=== PATIENT | female | born 1970 | race Caucasian/White ===

== ENCOUNTER 2020-07-26 12:52 | Outpatient (CLI) | payer OTHER, SELFPAY ==
--- NOTE | ~2020-07-26 | XR_ITS ---
EXAMINATION: XR fl inj knee LT for MR/CT DATE: 07/26/2020 13:48 INDICATION: Left knee pain. TECHNIQUE: A time-out was performed to verify the patient's name, date of , and procedure to b e performed. The procedure including the risks, benefits, and alternatives was discussed with the pat ient. Risks discussed included bleeding and infection. The patient understood the risks and agreed to proceed. The skin overlying the left knee joint was prepped and draped in usual sterile fashion. An esthetic was administered with 1% lidocaine subcutaneously. A 22 G needle was advanced under fluoros copic guidance into the joint. Subsequently, injectate consisting of 40 mL of 1:6 1% lidocaine, and 1:2 Omnipaque 240 was instilled. The needle was removed and the entry site was cleaned and dressed. There were no immediate complications. Fluoroscopy exposure time was 0.0 minutes. The total number o f images was 4. FINDINGS: Real-time fluoroscopy demonstrates the needle and contrast in the left knee joint. IMPRESSION: 1. Successful left knee joint injection of contrast for subsequent CT arthrography. Reviewed, dictated and finalized at location A. R OPTICS SUPERVISOR IMPRESSION: 1. Successful left knee joint injection of contrast for subsequent CT arthrogra phy.
--- NOTE | ~2020-07-26 | CT_ITS ---
EXAMINATION: CT knee LT w con DATE: 07/26/2020 13:51 INDICATION: Left knee pain. TECHNIQUE: Computed tomography (CT) of the left knee was performed without intravenous contrast after intra-articular injection of contrast (CT arthrogram). Automated exposure control and iterative steffen nstruction technique were employed. The dose-length product was 1084.42 mGy-cm. COMPARISON: Left knee MRI 12/10/2018 FINDINGS: Medial compartment: Medial meniscus is normal. There is shallow partial-thickness cartilage loss of tibial and femoral ca rtilage. Lateral compartment: Lateral meniscus is normal. There is cartilage surface irregularity of femoral condyle. Tibial cartil age is normal. Patellofemoral compartment: There is deep partial thickness cartilage loss of patellar medial facet and median ridge and distal l ateral facet. There is shallow partial-thickness cartilage loss of central and medial trochlea. Ligaments and tendons: The anterior and posterior cruciate ligaments are unremarkable. Medial collateral ligament and latera l collateral ligament complex are unremarkable. IMPRESSION: 1. Moderate chondrosis of patellofemoral compartment and mild chondrosis of medial and lateral compar tments. Reviewed, dictated and finalized at location A. CH MAKER IMPRESSION: 1. Moderate chondrosis of patellofemoral compartment and mild chondrosis of med ial and lateral compartments.
== END 2020-07-26 12:53 | disposition home or self-care (01) ==
PROVIDERS: PCP Internal Medicine; Visit Provider Orthopaedic Surgery
DX: M25.562 Pain in left knee (principal); M25.561 Pain in right knee
CPT/HCPCS: 20610; 73701; 77002; Q9966

== ENCOUNTER 2021-01-10 08:40 | Outpatient (CLI) | payer MEDICARE, MEDICAID, SELFPAY ==
--- NOTE | 2021-01-10 09:40 | NEURO_ITS ---
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 F waves are prolonged as well. Neurogenic chages are pronounced distally. Nerve Conduction Studies Anti Sensory Summary Table Stim Site NR Peak (ms) P-T Amp (?V) Site1 Site2 Delta-P (ms) Dist (cm) Parker (m/s) Left Sup Fibular Anti Sensory (Ant Lat Mall) 14 cm 6.9 16.3 14 cm Ant Lat Mall 6.9 16.0 23 Right Sup Fibular Anti Sensory (Ant Lat Mall) 14 cm NR 14 cm Ant Lat Mall 16.0 Left Sural Anti Sensory (Lat Mall) Calf NR Calf Lat Mall 16.0 Right Sural Anti Sensory (Lat Mall) Calf 4.4 31.1 Calf Lat Mall 4.4 16.0 36 Motor Summary Table Stim Site NR Onset (ms) O-P Amp (mV) Site1 Site2 Delta-0 (ms) Dist (cm) Parker (m/s) Left Peroneal Motor (Vastus Med) Ankle 2.0 1.9 Popit Ankle 21.8 41.0 19 Popit 23.8 0.3 Right Peroneal Motor (Vastus Med) Ankle 7.8 1.5 Popit Ankle 13.4 34.0 25 Popit 21.2 1.1 Left Tibial Motor (Abd Arana Brev) Ankle 10.7 1.4 Knee Ankle 13.0 41.0 32 Knee 23.7 1.2 Right Tibial Motor (Abd Arana Brev) Ankle 11.3 0.7 Knee Ankle 15.3 41.0 27 Knee 26.6 0.7 F Wave Studies NR F-Lat (ms) L-R F-Lat (ms) Left Peroneal (Mrkrs) (EDB) 61.25 8.59 Right Peroneal (Mrkrs) (EDB) 69.84 8.59 Left Tibial (Mrkrs) (Abd Hallucis) 62.19 11.49 Right Tibial (Mrkrs) (Abd Hallucis) 73.68 11.49 EMG Side Muscle Nerve Root Ins Act Fibs Amp Dur Recrt Comment Right AntTibialis Dp Br Fibular L4-5 Nml 1+ Incr >12ms Nml Right Gastroc Tibial S1-2 Nml 1+ Nml >12ms Nml Right Fibularis Long Sup Br Fibular L5-S1 Nml 1+ Nml >12ms Nml Right Flex Dig Long Tibial L5-S2 Nml 1+ Nml >12ms Nml Right Ext Dig Brev Dp Br Fibular L5, S1 Nml 2+ Incr >12ms Nml Left AntTibialis Dp Br Fibular L4-5 Nml 1+ Incr >12ms Nml Left Gastroc Tibial S1-2 Nml 1+ Nml >12ms Nml Left Fibularis Long Sup Br Fibular L5-S1 Nml 1+ Nml >12ms Nml Left Flex Dig Long Tibial L5-S2 Nml 2+ Incr >12ms Nml Left Ext Dig Brev Dp Br Fibular L5, S1 Nml Nml Nml Nml Nml MTDD
== END 2021-01-10 08:41 | disposition home or self-care (01) ==
PROVIDERS: PCP Internal Medicine; Visit Provider Psychiatry & Neurology Neurology
DX: R27.0 Ataxia, unspecified (principal); R94.131 Abnormal electromyogram [EMG]
CPT/HCPCS: 95886; 95910

== ENCOUNTER 2022-08-23 06:51 | Outpatient (CLI) | payer MEDICARE, MEDICAID, SELFPAY ==
--- NOTE | ~2022-08-23 | CT_ITS ---
EXAMINATION: CT cervical spine w con DATE: 08/23/2022 07:29 INDICATION: Other spondylosis with radiculopathy, cervical region. TECHNIQUE: Computed tomography (CT) of the cervical spine was performed with 100 mL Omnipaque 350 int ravenous contrast. Automated exposure control and iterative reconstruction technique were employed. T he dose-length product was 271.12 mGy-cm. COMPARISON: None FINDINGS: There are nodules in the thyroid measuring up to 13 mm, likely not clinically significant. There is mild kyphosis of cervical spine. There is 4 degrees dextrocurvature of cervicothoracic spine . Vertebral body heights are normal. There is a 7 mm sclerotic lesion in C5 vertebral body, most like ly a hemangioma. Intervertebral disc heights are normal. The following disc levels are specifically d iscussed: C2-C3: There is no uncovertebral joint osteoarthritis. There is mild right facet joint osteoarthritis . There is no neural foraminal stenosis. There is no central canal stenosis. C3-C4: There is no uncovertebral joint osteoarthritis. There is mild bilateral facet joint osteoarthr itis. There is no neural foraminal stenosis. There is no central canal stenosis. C4-C5: There is no uncovertebral joint osteoarthritis. There is mild right facet joint osteoarthritis . There is no neural foraminal stenosis. There is no central canal stenosis. C5-C6: There is no uncovertebral joint osteoarthritis. There is no facet joint osteoarthritis. There is no neural foraminal stenosis. There is mild central canal stenosis. C6-C7: There is no uncovertebral joint osteoarthritis. There is no facet joint osteoarthritis. There is no neural foraminal stenosis. There is mild central canal stenosis. C7-T1: There is no uncovertebral joint osteoarthritis. There is severe bilateral facet joint osteoart hritis. There is mild bilateral neural foraminal stenosis. There is no central canal stenosis. IMPRESSION: 1. Mild cervical spondylosis. Reviewed, dictated and finalized at location A.
[2022-08-23 07:17] LABS: Estimated Glomerular Filt Rate 48
== END 2022-08-23 06:52 | disposition home or self-care (01) ==
PROVIDERS: PCP Internal Medicine; Visit Provider Nurse Practitioner Adult Health
DX: M47.22 Other spondylosis with radiculopathy, cervical region (principal)
CPT/HCPCS: 72126; Q9967

== ENCOUNTER 2023-01-31 15:58 | Outpatient (CLI) | payer MEDICARE, MEDICAID, SELFPAY ==
--- NOTE | ~2023-01-31 | CT_ITS ---
EXAMINATION: CT foot RT wo con DATE: 01/31/2023 16:22 INDICATION: Stress fracture. TECHNIQUE: High resolution computed tomography (CT) of the right foot was performed without intraveno us contrast. Additional sagittal and coronal reconstructions were performed. Automated exposure contr ol and iterative reconstruction technique were employed. The dose-length product was 382.55 mGy-cm. COMPARISON: None FINDINGS: Prior amputation of the third distal phalanx. Bone alignment is normal. No fracture. There is mild po lyarticular osteoarthritis at the tibiotalar first metatarsophalangeal and several of the interphalan geal and tarsal metatarsal joints. Mild subarticular cystlike changes along the distal articular surf rowena of the middle cuneiform. Small Achilles and plantar calcaneal spurs. IMPRESSION: 1. Prior amputation of the right third distal phalanx. 2. Mild degenerative skeletal changes including calcaneal enthesophytes and mild polyarticular osteoa rthritis. No acute osseous abnormality. Reviewed, dictated and finalized at location A. IMPRESSION: 1. Prior amputation of the right third distal phalanx. 2. Mild degenerative skeletal changes including calcaneal enthesophytes and mil d polyarticular osteoarthritis. No acute osseous abnormality.
== END 2023-01-31 15:59 | disposition home or self-care (01) ==
PROVIDERS: PCP Internal Medicine; Visit Provider Podiatrist Foot & Ankle Surgery
DX: M84.374A Stress fracture, right foot, initial encounter for fracture (principal); T14.90XA Injury, unspecified, initial encounter; Z89.421 Acquired absence of other right toe(s)
CPT/HCPCS: 73700

== ENCOUNTER 2023-02-11 07:54 | Outpatient (CLI) | payer MEDICARE, MEDICAID, SELFPAY ==
[2023-02-04 08:37] VITALS: BMI 24.9
--- NOTE | 2023-02-04 08:37 | PC.NURSE ---
Pre Radiology instructions Report to the outpatient [facility] on date 02/11/23 at time 0800 for procedure Time: 1000. YOU MAY BE MONITORED AT HOSPITAL FOR UP TO 4 HOURS AFTER YOUR PROCEDURE. A visitor will be allowed to accompany the patient into the hospital. You and your visitor will be asked to self-screen and do not enter if you have any COVID symptoms. A mask is OPTIONAL within the hospital. Patients are to have no food or drink 6 hours prior to procedure time Driving will be restricted after the procedure, you must have a person to drive you home. Labs will be drawn in preop area and once reviewed, you will be taken to radiology area for procedure. When the procedure is completed, you will be taken to outpatient where you will be monitored for several hours. You may have one visitor in this area. Other than holding anti-coagulants, patient may take other medication(s) as scheduled. Prior to your appointment date patients are instructed to hold anti-coagulants after discussing with ordering provider to stop. If unable to discontinue anti-coagulants please notify radiologist. ? No aspirin or warfarin (Coumadin) for 7 days prior to the procedure. ? No clopidogrel (Plavix), ticagrelor (Brilinta), prasugrel (Effient) or dabigatran (Pradaxa) for 5 days prior to the procedure. ? No rivaroxaban (Xarelto), apixaban (Eliquis), dipyridamole (Aggrenox or Persantine) or cilostazol (Pletal) for 2 days prior to the procedure. Medications to discontinue per physician: ASPIRIN, BRILINTA Date to take last dose: ASPIRIN - 02/03, BRILINTA - 02/05 Please leave all valuables, including medications, at home the day of procedure. The hospital will not accept responsibility for valuables. Wear comfortable, loose fitting clothing.? Follow any additional instructions given to you from ordering provider. Telephone instructions given to JULEE JAQUEZ and asked if any additional questions and then verbalized understanding. Patient advised to call scheduling provider office or registration scheduling [phone] if any additional questions.
--- NOTE | ~2023-02-11 | XR_ITS ---
EXAMINATION: CT lumbar spine w con, XR myelogram spine lumbosacral DATE: 02/11/2023 10:01 INDICATION: Lumbar spinal stenosis with neurogenic claudication TECHNIQUE: Informed consent was obtained from the patient. Risks and benefits including bleeding, i nfection, spinal headache and nerve root injury were discussed with the patient. The patient agreed to proceed. Time out procedure was performed. Images from a prior MRI dated 10/23/2017 were reviewed. An entry site was chosen at the L3-L4 level. A midline interspinous process approach was used. Stand cody sterile prep was done with Betadine. Entry site was infiltrated with 3 cc 1% lidocaine. A 3.5 2 2G spinal needle was then inserted into the spinal canal with spontaneous efflux of clear CSF confirm ing intrathecal positioning. 17 mL Omnipaque 180 were then injected into the thecal sac with intermi ttent fluoroscopy confirming intrathecal administration. The needle was removed and a sterile bandage was applied. Frontal, lateral and oblique fluoroscopic images were then acquired. A total of 17 fluoroscopic image s were recorded. Fluoroscopy exposure time was 0.4 minutes. Total DAP was 3.14 Gycm^2. The patient w as then transferred to CT scan for spiral CT of the lumbar spine was performed with the intrathecal c ontrast but without intravenous contrast. Sagittal and coronal reconstructions were created. Automate d exposure control and iterative reconstruction technique were employed. The dose-length product was 271.12 mGy-cm. Following this patient was transferred to recovery area for 2 hours of observation. There are no immediate complications. COMPARISON: Lumbar spine MR dated 10/23/2017 FINDINGS: 3 mm anterolisthesis L4 on L5. 3 mm retrolisthesis L5 on S1. Minimal likely physiologic anterior wedg ing at T12 and L1. Remaining lumbar vertebral body heights are normal. No fracture. Mild disc height loss at L4-L5 and L5-S1. The conus medullaris terminates at L1-L2. Couple left adnexal cyst/follicles the largest measuring 3.1 cm. Paravertebral soft tissues are otherwise unremarkable. Moderate left a nd severe right sacroiliac osteoarthritis. The following disc levels are specifically discussed: T10-T11: The disc does not extend beyond the endplate margin. There is minimal bilateral facet joint osteoarthritis. There is no neural foraminal stenosis. There is no central canal stenosis. T11-T12: The disc does not extend beyond the endplate margin. There is mild right and minimal left fa cet joint osteoarthritis. There is no neural foraminal stenosis. There is no central canal stenosis. T12-L1: The disc does not extend beyond the endplate margin. There is mild right and minimal left fac et joint osteoarthritis. There is no neural foraminal stenosis. There is no central canal stenosis. L1-L2: Disc is minimally bulging. There is mild bilateral facet joint osteoarthritis. There is no roxana ral foraminal stenosis. There is no central canal stenosis. L2-L3: Disc is minimally bulging. There is mild bilateral facet joint osteoarthritis. There is no roxana ral foraminal stenosis. There is no central canal stenosis. L3-L4: The disc does not extend beyond the endplate margin. There is mild left and mild to moderate r ight facet joint osteoarthritis. There is no neural foraminal stenosis. There is no central canal alicia nosis. L4-L5: Disc is mildly bulging with superimposed small central disc extrusion with disc material exten ding up to 8 mm cephalad to the level of the L4 inferior endplate margin. There is severe bilateral f acet joint osteoarthritis. There is moderate right and mild left neural foraminal stenosis. There is moderate central canal stenosis. L5-S1: Disc is mildly bulging. There is mild left and mild to moderate right facet joint osteoarthrit is. There is no neural foraminal stenosis. There is no central canal stenosis. IMPRESSION: 1. No significant change in
[2023-02-11 08:38] VITALS: BP 112/77; PULSE 81; RESP 16; TEMP 36.8; O2SAT 100
[2023-02-11 08:42] LABS: Basophils Percent Auto 0.4 % (0.2-1.2); Eosinophils Absolute Auto 0.1 K/mm3 (0-0.3); Eosinophils Percent Auto 1.3 % (0-4.4); Hematocrit 38.6 % (37.0-47.0); Hemoglobin 12.3 g/dL (12.0-15.0); Immature Granulocyte Absolute 0.03 K/mm3 (0.00-0.031); Immature Granulocyte Percent A 0.4 % (0-0.5); Lymphocytes Percent Auto 24.3 % (18.3-44.2); Mean Corpuscular HGB Conc 31.9 g/dl (32-36); Mean Platelet Volume 9.3 fl (7.4-10.4); Monocytes Absolute Auto 0.7 K/mm3 (0.1-0.6); Neutrophils Absolute Auto 4.7 K/mm3 (1.3-6.7); Neutrophils Percent Auto 63.6 % (45.5-73.1); Platelet Count Result 250 k/mm3 (150-375); Red Blood Count 4.24 M/mm3 (4.2-5.4); Red Cell Distribution Width 12.7 % (11.5-14.5); White Blood Count 7.4 K/mm3 (4.5-10.0)
[2023-02-11 08:51] LABS: Prothrombin Time 13.3 Seconds (11.1-14.7)
[2023-02-11 10:00] VITALS: BP 114/78; PULSE 68; RESP 16; O2SAT 99
[2023-02-11 10:13] LABS: Glucose Point of Care 90 mg/dl (65-105)
[2023-02-11 10:25] VITALS: BP 123/87; PULSE 78; RESP 16; O2SAT 100
[2023-02-11 10:45] VITALS: BP 124/83; PULSE 69; RESP 16; O2SAT 99
[2023-02-11 11:10] VITALS: BP 126/83; PULSE 73; RESP 16; O2SAT 100
--- NOTE | 2023-02-11 11:15 | SUR.PHASEII ---
1015 - blood glucose tested and result 90. Offered pt glass of juice . Taking small sips intermittantly
[2023-02-11 11:56] VITALS: BP 128/85; PULSE 71; RESP 16; O2SAT 98
== END 2023-02-11 11:57 | disposition home or self-care (01) ==
PROVIDERS: PCP Internal Medicine; Referring Provider Nurse Practitioner Adult Health; Visit Provider Radiology Diagnostic Radiology
DX: M48.062 Spinal stenosis, lumbar region with neurogenic claudication (principal); M43.06 Spondylolysis, lumbar region; E11.9 Type 2 diabetes mellitus without complications
CPT/HCPCS: 36415; 62304; 72132; 82948; 85025; 85610; Q9965

== ENCOUNTER 2023-05-28 15:16 | Outpatient (CLI) | payer MEDICARE, MEDICAID, SELFPAY ==
--- NOTE | ~2023-05-28 | CT_ITS ---
EXAMINATION: CT brain wo con DATE: 05/28/2023 15:31 INDICATION: Migraine headaches for one year, worse in the last 4 months. Dizziness. TECHNIQUE: Computed tomography (CT) of the head was performed without intravenous contrast. The mA wa s adjusted according to patient size. Iterative reconstruction technique was employed. Exam dose: 60 5.33 mGy-cm total exam DLP. COMPARISON: June 26, 2015 MRI brain brain July 01, 2015 MRI brain/brainstem June 30, 2015 CT brain FINDINGS: There is bilateral carotid siphon internal carotid artery calcification and bilateral verte bral artery calcification. No intracranial mass lesion or hemorrhage or cerebrovascular accident, midline shift or mass effect i s evident. Normal ventricular size. Normal vega-white matter differentiation. No subdural or epidural hematoma. No fracture or bone destruction of the skull. Paranasal sinuses and mastoid air cells are normally d eveloped and aerated. IMPRESSION: Cerebral atherosclerosis Reviewed, dictated and finalized at Location A. Reviewed, dictated and finalized at location B. CUTTER IMPRESSION: Cerebral atherosclerosis
== END 2023-05-28 15:17 | disposition home or self-care (01) ==
PROVIDERS: PCP Internal Medicine; Visit Provider Student in an Organized Health Care Education/Training Program
DX: I67.2 Cerebral atherosclerosis (principal); G43.909 Migraine, unspecified, not intractable, without status migrainosus
CPT/HCPCS: 70450

== ENCOUNTER 2024-01-26 05:05 | Outpatient (CLI) | payer MEDICARE, MEDICAID, SELFPAY ==
[2024-01-21 14:05] VITALS: BMI 21.3
--- NOTE | 2024-01-21 14:06 | PC.NURSE ---
Pre Radiology instructions Report to the outpatient [facility] on date _[id number]_ at time _0700_ for procedure Time: _0900_ YOU MAY BE MONITORED AT HOSPITAL FOR UP TO 4 HOURS AFTER YOUR PROCEDURE. A visitor will be allowed to accompany the patient into the hospital. You and your visitor will be asked to self-screen and do not enter if you have any COVID symptoms. A mask is OPTIONAL within the hospital. Patients are to have no food or drink 6 hours prior to procedure time Driving will be restricted after the procedure, you must have a person to drive you home. Labs will be drawn in preop area and once reviewed, you will be taken to radiology area for procedure. When the procedure is completed, you will be taken to outpatient where you will be monitored for several hours. You may have one visitor in this area. Other than holding anti-coagulants, patient may take other medication(s) as scheduled. Prior to your appointment date patients are instructed to hold anti-coagulants after discussing with ordering provider to stop. If unable to discontinue anti-coagulants please notify radiologist. ? No aspirin or warfarin (Coumadin) for 7 days prior to the procedure. ? No clopidogrel (Plavix), ticagrelor (Brilinta), prasugrel (Effient) or dabigatran (Pradaxa) for 5 days prior to the procedure. ? No rivaroxaban (Xarelto), apixaban (Eliquis), dipyridamole (Aggrenox or Persantine) or cilostazol (Pletal) for 2 days prior to the procedure. Medications to discontinue per physician: _Aspirin and Brilinta Date to take last dose: __Patient stopped these on 3-3-6507 Please leave all valuables, including medications, at home the day of procedure. The hospital will not accept responsibility for valuables. Wear comfortable, loose fitting clothing.? Follow any additional instructions given to you from ordering provider. Telephone instructions given to ___Shelly____and asked if any additional questions and then verbalized understanding. Patient advised to call scheduling provider office or registration scheduling [phone] if any additional questions.
[2024-01-26] VITALS (7 sets, daily range): BP systolic 106–127; BP diastolic 74–81; PULSE 75–85; RESP 14–16; TEMP 36.7; O2SAT 95–98
--- NOTE | ~2024-01-26 | CT_ITS ---
EXAMINATION: 1. XR myelogram spine lumbosacral 2. CT lumbar spine w con DATE: 01/26/2024 09:18 INDICATION: Spondylolisthesis, lumbar region. TECHNIQUE: The procedure including the risks, benefits, and alternatives was discussed with the patie nt. Risks discussed included spinal headache, bleeding, and infection. The patient understood the ris ks and agreed to proceed. A timeout was performed to verify the patient's name, date of , and procedure to be performed. The skin overlying the L2-L3 level was prepped and draped in usual steri le fashion. Subcutaneous 1% lidocaine was used for local anesthesia. A 22 gauge spinal needle was a dvanced under fluoroscopic guidance. 17 mL Omnipaque 180 was injected. The needle was removed and the entry site was cleaned and dressed. There were no immediate complications. Fluoroscopy exposure fanta e was 0.2 minutes. The total number of images was 7. Computed tomography (CT) of the lumbar spine was performed without intravenous contrast. Automated exposure control and iterative reconstruction tech Aveillantque were employed. The dose-length product was 481.57 mGy-cm. COMPARISON: CT lumbar spine 02/11/2023 FINDINGS: LUMBAR MYELOGRAM: There is epidural and intradural injection of contrast. There is indentation of the thecal sac at multiple levels that will be further described on the CT. POST-MYELOGRAM LUMBAR SPINE CT: There is 3 mm anterolisthesis of L4 on L5. Vertebral body heights are normal. There is moderately decreased disc height at L4-L5 and mildly decreased disc height at L5-S1 . The distal spinal cord morphology is normal. The conus medullaris is at L1-L2. The following disc l evels are specifically discussed: L1-L2: The disc is bulging. There is moderate right and mild left facet joint osteoarthritis. There i s no neural foraminal stenosis. There is mild central canal stenosis. L2-L3: The disc is bulging. There is mild bilateral facet joint osteoarthritis. There is mild left ne ural foraminal stenosis. There is mild central canal stenosis. L3-L4: The disc does not extend beyond the endplate margin. There is mild bilateral facet joint osteo arthritis. There is no neural foraminal stenosis. There is no central canal stenosis. L4-L5: The disc is bulging with superimposed central extrusion. There is severe bilateral facet joint osteoarthritis. There is moderate right and mild left neural foraminal stenosis. There is mild centr al canal stenosis. There is moderate stenosis of right lateral recess. L5-S1: The disc is bulging. There is moderate right and mild left facet joint osteoarthritis. There i s no neural foraminal stenosis. There is mild central canal stenosis. IMPRESSION: 1. Moderate spondylosis at L4-L5 and mild spondylosis at other levels, stable from 02/11/2023. Reviewed, dictated and finalized at location A. IMPRESSION: 1. Moderate spondylosis at L4-L5 and mild spondylosis at other levels, stable f rom 02/11/2023.
[2024-01-26 07:30] LABS: Mean Platelet Volume 9.1 fl (7.4-10.4); Platelet Count Result 251 k/mm3 (150-375)
[2024-01-26 07:41] LABS: INR 0.9; Prothrombin Time 12.3 Seconds (11.1-14.7)
== END 2024-01-26 11:28 | disposition home or self-care (01) ==
PROVIDERS: PCP Physician Assistant Medical; Referring Provider Neurological Surgery; Visit Provider Radiology Diagnostic Radiology
DX: Z01.818 Encounter for other preprocedural examination (principal); M43.16 Spondylolisthesis, lumbar region
CPT/HCPCS: 36415; 62304; 72132; 85049; 85610; Q9965

== ENCOUNTER 2024-01-28 21:13 | Emergency (ER) | payer MEDICARE, MEDICAID, SELFPAY ==
[2024-01-28 21:48] VITALS: BP 171/104; PULSE 93; RESP 20; TEMP 35.7; O2SAT 100
[2024-01-29 02:10] VITALS: BP 157/96; PULSE 85; RESP 17; O2SAT 100
[2024-01-29] MEDS: MORPHINE SULFATE (*CRX) 4 MG/ML INJ IV PUSH (02:34)
[2024-01-29] MEDS: diphenhydrAMINE HCl INJ 50 MG/ML VIAL IV PUSH (02:34)
[2024-01-29] MEDS: MAGNESIUM SULF 1 GM/D5W 100 ML 1 GM/100 ML BAG IVPB (02:34)
[2024-01-29] MEDS: PROCHLORPERAZINE EDISYLATE 10 MG/2 ML VIAL IV PUSH (02:35)
[2024-01-29] MEDS: SODIUM CHLORIDE 0.9% IV 1,000 ML 999 ML IV CONT (02:35)
[2024-01-29 02:41] LABS: Basophils Percent Auto 0.3 % (0.2-1.2); Hematocrit 39.7 % (37.0-47.0); Hemoglobin 13.2 g/dL (12.0-15.0); Immature Granulocyte Absolute 0.02 K/mm3 (0.00-0.031); Immature Granulocyte Percent A 0.3 % (0-0.5); Lymphocytes Absolute Auto 1.39 K/mm3 (0.9-3.2); Mean Corpuscular HGB Conc 33.2 g/dl (32-36); Mean Corpuscular Hemoglobin 27.9 pg (26-34); Mean Corpuscular Volume 83.9 fl (80-100); Mean Platelet Volume 8.9 fl (7.4-10.4); Monocytes Absolute Auto 0.3 K/mm3 (0.1-0.6); Monocytes Percent Auto 3.2 % (2.6-8.5); Neutrophils Absolute Auto 6.1 K/mm3 (1.3-6.7); Neutrophils Percent Auto 78.2 % (45.5-73.1); Platelet Count Result 294 k/mm3 (150-375); Red Blood Count 4.73 M/mm3 (4.2-5.4); Red Cell Distribution Width 12.7 % (11.5-14.5); White Blood Count 7.7 K/mm3 (4.5-10.0)
[2024-01-29 02:53] LABS: Alanine Aminotransferase 16 U/L (6-35); Albumin Level 3.9 g/dL (3.5-5.1); Alkaline Phosphatase 71 U/L (38-126); Anion Gap 10 mmol/L (4-12); Aspartate Amino Transferase 21 U/L (14-36); Bilirubin,Total 0.7 mg/dL (0.2-1.3); Blood Urea Nitrogen 20 mg/dL (7-17); Calcium 9.2 mg/dL (8.4-10.2); Carbon Dioxide 26 mmol/L (22-30); Chloride 99 mmol/L (98-107); Estimated CRCL calculation 68 ml/min; Estimated Glomerular Filt Rate > 60; Glucose 104 mg/dL (65-110); Potassium 4.1 mmol/L (3.4-5.0); Sodium 135 mmol/L (137-145)
--- NOTE | 2024-01-29 03:51 | ED.GENADULT ---
HPI - General Adult General Chief complaint: Headache Stated complaint: headache Time Seen by Provider: 01/29/24 01:48 History of Present Illness HPI narrative: Patient is a 53-year-old female who presents emergency department with chief complaint of headache. The patient reports that she had a myelogram performed on Friday and since the procedure has been having headache the patient denies fever reports that she has had multiple bouts of nausea vomiting reports no drainage from the injection site. Patient reports no new focal neurological deficits denies footdrop denies saddle anesthesia Related Data Home Medications Medication Instructions Recorded Confirmed aspirin 81 mg tablet,delayed 81 mg PO DAILY 10/27/20 01/21/24 release levothyroxine 100 mcg capsule 100 mcg PO DAILY 10/27/20 01/21/24 (Tirosint) metformin 1,000 mg tablet 1,000 mg PO BID 10/27/20 01/21/24 nitroglycerin 0.4 mg sublingual 0.4 mg sublingual Q5M PRN Chest 10/27/20 01/21/24 tablet Pain acetaminophen 300 mg-codeine 30 mg 1 tablet PO QHS PRN Pain 04/09/22 01/21/24 tablet atorvastatin 80 mg tablet 80 mg PO DAILY 04/09/22 01/21/24 bumetanide 1 mg tablet 1 mg PO DAILY 04/09/22 01/21/24 carvedilol 6.25 mg tablet 6.25 mg PO BID 04/09/22 01/21/24 empagliflozin 25 mg tablet 25 mg PO DAILY 04/09/22 01/21/24 (Jardiance) sacubitril 24 mg-valsartan 26 mg 1 tablet PO BID 04/09/22 01/21/24 tablet (Entresto) duloxetine 30 mg capsule,delayed 60 mg PO DAILY 02/11/23 01/21/24 release linaclotide 145 mcg capsule 145 mcg PO DAILY 05/23/23 01/21/24 (Linzess) semaglutide 0.25 mg or 0.5 mg (2 0.25 mg subcut WEEKLY 05/23/23 01/21/24 mg/3 mL) subcutaneous pen injector (Ozempic) gabapentin 600 mg tablet 600 mg PO BID 11/19/23 01/21/24 sertraline 25 mg tablet 25 mg PO DAILY 07/03/24 09/04/24 ticagrelor 60 mg tablet (Brilinta) 60 mg PO BID 01/21/24 01/21/24 Allergies Allergy/AdvReac Type Severity Reaction Status Date / Time No Known Allergies Allergy Verified 01/28/24 21:48 Review of Systems Review of Systems: A 10 system review of systems was completed on the patient and is negative except for what is stated in the HPI. Nursing and ancillary documentation was reviewed. PMFSH Past Medical History Medical History Heart attack Family History Family History Father Hypertension Grandparent Diabetes mellitus Hypertension Depression Grandparent Depression Diabetes mellitus Hypertension Social History Social History Social History: never smoker Smoking packs per day: 0 Smoking cigarettes per day: 0.0 Years smoked: 0 Smoking pack-years: 0.00 Smoking status: Never smoker Second hand tobacco smoke exposure: No Alcohol intake: current Drinks per week: 1 Alcohol use details: 1 drink a year Substance use: never Substance use type: does not use Do You Feel Safe in your Home?: Yes Lack of Transportation: No Lack of Food: Sometimes True Current Housing: I Have Housing Concerned About Future Housing: No Difficulty Paying Gas/Electric Bills: No Difficulty Paying for Meds: No Currently Unemployed: No Education: High School Diploma/GED Difficulty w/ Childcare or Family Care: No Living arrangements: alone Exam Narrative: GENERAL: Well-appearing, well-nourished, and in no acute distress. HEAD: Normocephalic, atraumatic. EYES: PERRLA and EOMI. ENT: Nares clear, no rhinorrhea or epistaxis. Mucous membranes moist. NECK: Supple. CHEST: Clear to auscultation. No respiratory distress. HEART: Regular rate and rhythm. No murmur heard. Normal peripheral pulses. ABDOMEN: Soft, nontender, nondistended, normal active bowel sounds. EXTREMITIES: Normal range of motion. No edema. SKIN: Warm, dry, no rash. NEURO
[2024-01-29 04:24] VITALS: BP 122/74; PULSE 83; RESP 13; O2SAT 100
== END 2024-01-29 04:32 | disposition home or self-care (01) ==
PROVIDERS: Emergency Provider Emergency Medicine; PCP Physician Assistant Medical
DX: T88.59XA Other complications of anesthesia, initial encounter (principal); G44.40 Drug-induced headache, not elsewhere classified, not intractable
CPT/HCPCS: 36415; 80053; 85025; 96365; 96375; 99284; J0780; J1200; J2270; J3475; J7030

== ENCOUNTER 2024-04-11 19:17 | Emergency (ER) | payer MEDICARE, MEDICAID, SELFPAY ==
--- NOTE | ~2024-04-11 | CT_ITS ---
EXAMINATION: CT chest abdomen pelvis w con DATE: 04/12/2024 02:16 INDICATION: Generalized abdominal pain. TECHNIQUE: Computed tomography (CT) of the chest, abdomen, and pelvis was performed with 100 mL Omnip aque 350 intravenous contrast. Automated exposure control and iterative reconstruction technique were employed. The dose-length product was 348.48 mGy-cm. COMPARISON: Chest CT 12/13/2017 FINDINGS: CHEST CT: The lungs demonstrate mild dependent atelectasis bilaterally. No pleural effusion. The heart size is normal. No pericardial effusion. There are stents in left anterior descending coronary artery. There is a left chest wall pacer with leads in the right atrium and right ventricle. There are nodules in t he thyroid measuring up to 10 mm, likely not clinically significant. There is moderate thoracic spond ylosis. ABDOMEN/PELVIS CT: The liver, spleen, gallbladder, pancreas, adrenal glands, and kidneys are normal. There are no dilate d loops of bowel. The appendix is normal. There is physiologic fluid in the pelvis. Body wall edema i s noted. There are no pathologically enlarged lymph nodes. There is mild lumbar spondylosis. IMPRESSION: 1. No etiology for the patient's symptoms. Reviewed, dictated and finalized at location A. 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
[2024-04-11 19:22] VITALS: BP 149/101; PULSE 83; RESP 16; TEMP 36.4; O2SAT 100
[2024-04-11 19:32] LABS: Basophils Percent Auto 0.4 % (0.2-1.2); Eosinophils Absolute Auto 0.2 K/mm3 (0-0.3); Eosinophils Percent Auto 2.1 % (0-4.4); Immature Granulocyte Absolute 0.02 K/mm3 (0.00-0.031); Immature Granulocyte Percent A 0.3 % (0-0.5); Lymphocytes Absolute Auto 2.13 K/mm3 (0.9-3.2); Mean Corpuscular HGB Conc 31.7 g/dl (32-36); Mean Corpuscular Hemoglobin 27.1 pg (26-34); Mean Corpuscular Volume 85.4 fl (80-100); Mean Platelet Volume 8.8 fl (7.4-10.4); Monocytes Absolute Auto 0.5 K/mm3 (0.1-0.6); Monocytes Percent Auto 6.8 % (2.6-8.5); Neutrophils Absolute Auto 4.8 K/mm3 (1.3-6.7); Neutrophils Percent Auto 62.4 % (45.5-73.1); Platelet Count Result 287 k/mm3 (150-375); Red Cell Distribution Width 12.8 % (11.5-14.5); White Blood Count 7.6 K/mm3 (4.5-10.0)
[2024-04-11 19:51] LABS: Alanine Aminotransferase 13 U/L (6-35); Albumin Level 4.4 g/dL (3.5-5.1); Alkaline Phosphatase 84 U/L (38-126); Anion Gap 6 mmol/L (4-12); Aspartate Amino Transferase 22 U/L (14-36); Bilirubin,Total 0.8 mg/dL (0.2-1.3); Blood Urea Nitrogen 18 mg/dL (7-17); Calcium 9.5 mg/dL (8.4-10.2); Carbon Dioxide 27 mmol/L (22-30); Chloride 104 mmol/L (98-107); Estimated CRCL calculation 65 ml/min; Estimated Glomerular Filt Rate > 60; Glucose 109 mg/dL (65-110); Lipase 168 U/L (23-300); Potassium 4.5 mmol/L (3.4-5.0); Sodium 137 mmol/L (137-145)
[2024-04-11 20:41] LABS: BEDSIDEPREGUCG Negative (Negative)
[2024-04-11 20:49] LABS: Add Urine Microscopic? NO; Appearance Urine Clear (Clear); Bilirubin Urine Negative (Negative); Blood Urine Negative (Negative); Color Urine Yellow (Yellow); Glucose Urine UA 3+ mg/dL (Negative); Ketones Urine Trace mg/dL (Negative); Leukocyte Esterase Ur Negative LEU/UL (Negative); Nitrate Urine Negative (Negative); Protein Urine Negative (Negative); Specific Grav Ur 1.036 (1.001-1.035); Urobilinogen Urine 0.2 mg/dL (<2.0)
[2024-04-11 22:14] VITALS: BP 138/86; PULSE 81; RESP 16; O2SAT 98
--- NOTE | 2024-04-12 01:06 | ECG_ITS ---
Test Date: 2024-04-12 01:18:51 Measurements Intervals [place] Rate: 79 P: 40 LA: 155 QRS: -3 QRSD: 90 T: 30 QT: 347 QTc: 400 Interpretive Statements SINUS RHYTHM LOW QRS VOLTAGE IN PRECORDIAL LEADS ANTEROSEPTAL INFARCT, AGE INDETERMINATE BASELINE ARTIFACT- I, II, III, AVR, AVL ABNORMAL ECG No previous ECG available for comparison Electronically Signed On 04-12-2024 06:07:55 LEATHER STRIPPING MACHINE OPERATOR by Melecio Sawant D.O.
[2024-04-12] MEDS: FAMOTIDINE 20 MG/2 ML VIAL IV PUSH (01:19)
[2024-04-12] MEDS: ONDANSETRON INJ 4 MG/2 ML VIAL IV PUSH (01:19)
[2024-04-12] MEDS: SODIUM CHLORIDE 0.9% IV 1,000 ML 999 ML IV CONT (01:19)
[2024-04-12] MEDS: MORPHINE SULFATE (*CRX) 2 MG/ML INJ IV PUSH (01:19)
[2024-04-12 01:20] VITALS: BP 132/89; PULSE 78; RESP 13; O2SAT 100
[2024-04-12] MEDS: KETOROLAC 15 MG/ML VIAL (*BKC) IV PUSH (01:26)
[2024-04-12 01:42] LABS: Prothrombin Time 13.2 Seconds (11.1-14.7)
[2024-04-12 01:43] LABS: Partial Thromboplastin Time 26.4 Seconds (22.3-36.8)
[2024-04-12 01:53] LABS: Troponin I < 0.012 ng/mL (0.000-0.034)
[2024-04-12 01:58] VITALS: BP 136/86; PULSE 79; RESP 16; O2SAT 98
--- NOTE | 2024-04-12 01:58 | ED_ITS ---
HPI - Abdominal Pain General Chief Complaint: Abdominal Pain Stated Complaint: lower abdominal pain Time Seen by Provider: 04/11/24 23:50 History of Present Illness HPI narrative: Patient is a 63-year-old female who presents to the ER with generalized abdominal pain. She reports this started abruptly around 3:00 p.m. today. Patient reports she has never experienced this before. She endorses nausea and vomiting. Patient endorses a history of hypertension, diabetes, CHF with an internal defibrillator in 3 stents. She denies any recent sick contacts and denies any urinary symptoms. Patient's last bowel movement was this morning and it was normal for her. Related Data Home Medications Medication Instructions Recorded Confirmed aspirin 81 mg tablet,delayed 81 mg PO DAILY 10/27/20 01/21/24 release levothyroxine 100 mcg capsule 100 mcg PO DAILY 10/27/20 01/21/24 (Tirosint) metformin 1,000 mg tablet 1,000 mg PO BID 10/27/20 01/21/24 nitroglycerin 0.4 mg sublingual 0.4 mg sublingual Q5M PRN Chest 10/27/20 01/21/24 tablet Pain acetaminophen 300 mg-codeine 30 mg 1 tablet PO QHS PRN Pain 04/09/22 01/21/24 tablet atorvastatin 80 mg tablet 80 mg PO DAILY 04/09/22 01/21/24 bumetanide 1 mg tablet 1 mg PO DAILY 04/09/22 01/21/24 carvedilol 6.25 mg tablet 6.25 mg PO BID 04/09/22 01/21/24 empagliflozin 25 mg tablet 25 mg PO DAILY 04/09/22 01/21/24 (Jardiance) sacubitril 24 mg-valsartan 26 mg 1 tablet PO BID 04/09/22 01/21/24 tablet (Entresto) duloxetine 30 mg capsule,delayed 60 mg PO DAILY 02/11/23 01/21/24 release linaclotide 145 mcg capsule 145 mcg PO DAILY 05/23/23 01/21/24 (Linzess) semaglutide 0.25 mg or 0.5 mg (2 0.25 mg subcut WEEKLY 05/23/23 01/21/24 mg/3 mL) subcutaneous pen injector (Ozempic) gabapentin 600 mg tablet 600 mg PO BID 11/19/23 01/21/24 sertraline 25 mg tablet 25 mg PO DAILY 11/19/23 01/21/24 ticagrelor 60 mg tablet (Brilinta) 60 mg PO BID 01/21/24 01/21/24 ondansetron 8 mg disintegrating 8 mg PO Q12H 03/09/24 tablet rimegepant 75 mg disintegrating 75 mg PO ONCE PRN 03/09/24 tablet (Nurtec ODT) Allergies Allergy/AdvReac Type Severity Reaction Status Date / Time No Known Allergies Allergy Verified 03/09/24 09:07 Review of Systems Review of Systems: All systems reviewed & are unremarkable except as noted in HPI and below PMFSH Past Medical History Medical History Heart attack Family History Family History Father Hypertension Grandparent Diabetes mellitus Hypertension Depression Grandparent Depression Diabetes mellitus Hypertension Social History Social History Social History: never smoker Smoking packs per day: 0 Smoking cigarettes per day: 0.0 Years smoked: 0 Smoking pack-years: 0.00 Smoking status: Never smoker Second hand tobacco smoke exposure: No Alcohol intake: current Drinks per week: 1 Alcohol use details: 1 drink a year Substance use: never Substance use type: does not use Do You Feel Safe in your Home?: Yes Lack of Transportation: No Lack of Food: Never True Current Housing: I Have Housing Concerned About Future Housing: No Difficulty Paying Gas/Electric Bills: No Difficulty Paying for Meds: No Currently Unemployed: No Education: High School Diploma/GED Difficulty w/ Childcare or Family Care: No Living arrangements: alone Exam Narrative: GENERAL: Well appearing, well-nourished, non-toxic, in no acute distress. HEAD: Normocephalic, atraumatic. NECK: Supple. No adenopathy, no masses. RESPIRATORY: Airway patent, respirations nonlabored. Clear to auscultation bilaterally, no rales, rhonchi, wheezing. CARDIOVASCULAR: Regular rate and rhythm without murmurs, rubs, or gallops. Peripheral pulses 2+ and equal bilaterally. ABDOMINAL: Soft, tender in all four quadrants (L worse than R), increased abdominal pain with palpation, nondistended, no hepatosplenomegaly. Normoactive BS. MUSCULOSKELETAL: Moves all extremities. Strength/ROM intact without gross deformities. SKIN: Warm, dry, normal color. No rashes. NEURO: A&O X3. Speech clear. Cranial nerves II-XII grossly intact. No ataxic movements. PSYCHIATRIC: Appropriate mood and affect. Normal interaction. Course Vital Signs Vital signs: Vital Signs Temperature 36.4 C 04/11/24 19:22 Pulse Rate 83 04/11/24 19:22 Respiratory Rate 16 04/11/24 19:22 Blood Pressure 149/101 H 04/11/24 19:22 Pulse Oximetry 100 04/11/24 19:22 Temperature 36.4 C 04/11/24 19:22 Pulse Rate 79 04/12/24 01:58 Respiratory Rate 16 04/12/24 01:58 Blood Pressure 136/86 04/12/24 01:58 Pulse Oximetry 98 04/12/24 01:58 MDM - Abdominal Pain MDM Narrative Medical decision making narrative: Patient is a 63-year-old female who presents to the ER with generalized abdominal pain. She reports this started abruptly around 3:00 p.m. today. Patient reports she has never experienced this before. She endorses nausea and vomiting. Patient endorses a history of hypertension, diabetes, CHF with an internal defibrillator in 3 stents. She denies any recent sick contacts and denies any urinary symptoms. Patient's last bowel movement was this morning and it was normal for her. She denies any alcohol or drug use. Labs Ordered: CBC, CMP, lipase, INR, PTT, troponin, UDS, urinalysis Imaging Ordered: EKG, CT chest/abdomen/pelvis Diagnosis: viral gastritis Patient Education/Shared MDM: All of patient's blood work was unremarkable. Her urinalysis indicated mild dehydration her which patient was given 1 L normal saline IV bolus. Patient's chest/abdomen/pelvis CT scan was unremarkable for any acute findings. Results with patient. Patient's symptoms are most likely cause a viral gastritis. She will be given Zofran and Bentyl prescriptions for discharge. Patient given extensive education about the need to return if she sh ows signs of dehydration. She verbalizes understanding is in agreement with plan to discharge home. Will give patient a [place] prior to discharge as she is still experiencing abdominal pain. Differential Diagnosis Differential diagnosis: Likely abdominal pain, constipation, diverticulitis, gastroenteritis, pancreatitis, small bowel obstruction and other (cannabinoid hyperemesis, viral gastritis) Lab Data Attestation: I reviewed the patient's lab results. 04/11/24 19:27 04/11/24 19:27 Labs: Lab Results 04/11/24 04/11/24 04/11/24 Range/Units 19:27 20:37 20:39 WBC 7.6 (4.5-10.0) K/mm3 RBC 4.80 (4.2-5.4) M/mm3 Hgb 13.0 (12.0-15.0) g/dL Hct 41.0 (37.0-47.0) % MCV 85.4 (80-100) fl MCH 27.1 (26-34) pg MCHC 31.7 L (32-36) g/dl RDW 12.8 (11.5-14.5) % Plt Count 287 (150-375) k/mm3 MPV 8.8 (7.4-10.4) fl Immature Gran % (Auto) 0.3 (0-0.5) % Neut % (Auto) 62.4 (45.5-73.1) % Lymph % (Auto) 28.0 (18.3-44.2) % [place] % (Auto) 6.8 (2.6-8.5) % Eos % (Auto) 2.1 (0-4.4) % Baso % (Auto) 0.4 (0.2-1.2) % Lymph # (Auto) 2.13 (0.9-3.2) K/mm3 [place] # (Auto) 0.5 (0.1-0.6) K/mm3 Eos # (Auto) 0.2 (0-0.3) K/mm3 Baso # (Auto) 0.0 (0.0-0.1) K/mm3 Abs Immat Gran (auto) 0.02 (0.00-0.031) K/mm3 Absolute Neuts (auto) 4.8 (1.3-6.7) K/mm3 Absolute Nucleated RBC 0.000 (0.0-0.012) K/mm3 Nucleated RBC % 0.0 (0.0-0.2) % PT (11.1-14.7) Seconds INR APTT (22.3-36.8) Seconds Sodium 137 (137-145) mmol/L Potassium 4.5 (3.4-5.0) mmol/L Chloride 104 (98-107) mmol/L Carbon Dioxide 27 (22-30) mmol/L Anion Gap 6 (4-12) mmol/L BUN 18 H (7-17) mg/dL Creatinine 0.80 (0.7-1.0) mg/dL Estim Creat Clear Calc 65 ml/min Estimated GFR > 60 (59 - ) Glucose 109 (65-110) mg/dL Calcium 9.5 (8.4-10.2) mg/dL Total Bilirubin 0.8 (0.2-1.3) mg/dL AST 22 (14-36) U/L ALT 13 (6-35) U/L Alkaline Phosphatase 84 (38-126) U/L Troponin I (0.000-0.034) ng/mL Total Protein 8.0 (6.3-8.2) g/dL Albumin 4.4 (3.5-5.1) g/dL Lipase 168 (23-300) U/L Urine Color Yellow (Yellow) Urine Appearance Clear (Clear) Urine pH 5.0 (5.0-9.0) Ur Specific [place] 1.036 H (1.001-1.035) Urine Protein Negative (Negative) mg/dL Urine Glucose (UA) 3+ H (Negative) mg/dL Urine Ketones Trace H (Negative) mg/dL Ur Blood (Man) Negative (Negative) Urine Nitrate Negative (Negative) Urine Bilirubin Negative (Negative) Urine Urobilinogen 0.2 (<2.0) mg/dL Leukocyte Esterase Rfl Negative (Negative) BOBBY/UL POC Urine HCG, Qual Negative (Negative) 04/12/24 Range/Units 01:17 WBC (4.5-10.0) K/mm3 RBC (4.2-5.4) M/mm3 Hgb (12.0-15.0) g/dL Hct (37.0-47.0) % MCV (80-100) fl MCH (26-34) pg MCHC (32-36) g/dl RDW (11.5-14.5) % Plt Count (150-375) k/mm3 MPV (7.4-10.4) fl Immature Gran % (Auto) (0-0.5) % Neut % (Auto) (45.5-73.1) % Lymph % (Auto) (18.3-44.2) % [place] % (Auto) (2.6-8.5) % Eos % (Auto) (0-4.4) % Baso % (Auto) (0.2-1.2) % Lymph # (Auto) (0.9-3.2) K/mm3 [place] # (Auto) (0.1-0.6) K/mm3 Eos # (Auto) (0-0.3) K/mm3 Baso # (Auto) (0.0-0.1) K/mm3 Abs Immat Gran (auto) (0.00-0.031) K/mm3 Absolute Neuts (auto) (1.3-6.7) K/mm3 Absolute Nucleated RBC (0.0-0.012) K/mm3 Nucleated RBC % (0.0-0.2) % PT 13.2 (11.1-14.7) Seconds INR 1.0 APTT 26.4 (22.3-36.8) Seconds Sodium (137-145) mmol/L Potassium (3.4-5.0) mmol/L Chloride (98-107) mmol/L Carbon Dioxide (22-30) mmol/L Anion Gap (4-12) mmol/L BUN (7-17) mg/dL Creatinine (0.7-1.0) mg/dL Estim Creat Clear Calc ml/min Estimated GFR (59 - ) Glucose (65-110) mg/dL Calcium (8.4-10.2) mg/dL Total Bilirubin (0.2-1.3) mg/dL AST (14-36) U/L ALT (6-35) U/L Alkaline Phosphatase (38-126) U/L Troponin I < 0.012 (0.000-0.034) ng/mL Total Protein (6.3-8.2) g/dL Albumin (3.5-5.1) g/dL Lipase (23-300) U/L Urine Color (Yellow) Urine Appearance (Clear) Urine pH (5.0-9.0) Ur Specific [place] (1.001-1.035) Urine Protein (Negative) mg/dL Urine Glucose (UA) (Negative) mg/dL Urine Ketones (Negative) mg/dL Ur Blood (Man) (Negative) Urine Nitrate (Negative) Urine Bilirubin (Negative) Urine Urobilinogen (<2.0) mg/dL Leukocyte Esterase Rfl (Negative) BOBBY/UL POC Urine HCG, Qual (Negative) Imaging Data Attestation: I personally reviewed and interpreted this imaging study as follows: My impression: Patient's chest/abdomen/pelvis CT scan was unremarkable for any acute findings Discharge Plan Discharge Clinical Impression: Viral gastritis Patient Disposition: Home, Self-Care Condition: Stable Instructions: Antibiotic Form, Abdominal Pain (ED) Additional Instructions: Please return to the ER with any worsening symptoms including lack of urination for 8 hours or more. Follow-up with your primary care provider in the next 2-3 days. Take all medications as prescribed. Prescriptions: New dicyclomine 10 mg capsule 10 mg PO QID Qty: 14 0RF ondansetron 4 mg tablet,disintegrating 4 mg PO Q8H PRN (Reason: nausea and vomiting) Qty: 14 0RF No Action Linzess 145 mcg capsule 145 mcg PO DAILY Ozempic 0.25 mg or 0.5 mg (2 mg/3 mL) pen injector 0.25 mg subcut WEEKLY Rx Instructions: for 4 weeks, says is taking 0.5mg on Wednesdays. sertraline 25 mg tablet 25 mg PO DAILY gabapentin 600 mg tablet 600 mg PO BID Qulipta 60 mg tablet 60 mg PO DAILY Qty: 30 6RF Ubrelvy 100 mg tablet 100 mg PO ONCE PRN (Reason: migraine headache) Qty: 14 3RF Rx Instructions: as a single dose; may repeat once in >=2 hours after first dose if needed levothyroxine [Tirosint] 100 mcg capsule 100 mcg PO DAILY aspirin 81 mg tablet,delayed release (DR/EC) 81 mg PO DAILY nitroglycerin 0.4 mg tablet, sublingual 0.4 mg sublingual Q5M PRN (Reason: Chest Pain) Rx Instructions: do not exceed 3 doses per episode metformin 1,000 mg tablet 1,000 mg PO BID atorvastatin 80 mg tablet 80 mg PO DAILY carvedilol 6.25 mg tablet 6.25 mg PO BID Rx Instructions: must administer with a meal/food acetaminophen-codeine 300-30 mg tablet 1 tablet PO QHS PRN (Reason: Pain) Jardiance 25 mg tablet 25 mg PO DAILY Entresto 24-26 mg tablet 1 tablet PO BID bumetanide 1 mg tablet 1 mg PO DAILY Rx Instructions: Says takes twice a week on Mondays and . Nurtec ODT 75 mg tablet,disintegrating 75 mg PO ONCE PRN Rx Instructions: as a single dose ondansetron 8 mg tablet,disintegrating 8 mg PO Q12H Brilinta 60 mg tablet 60 mg PO BID duloxetine 30 mg capsule,delayed release(DR/EC) 60 mg PO DAILY tizanidine 2 mg tablet See Rx Instructions .ROUTE .COMPLEX Qty: 120 0RF Dose Instruction: TAKE 1 TABLET BY MOUTH EVERY 6 TO 8 HOURS NEEDED FOR MUSCLE SPASTICITY Rx Instructions: TAKE 1 TABLET BY MOUTH EVERY 6 TO 8 HOURS NEEDED FOR MUSCLE SPASTICITY Follow-up/Referrals: Johnathan,AMRTINE Kim [Primary Care Provider] -
== END 2024-04-12 03:28 | disposition home or self-care (01) ==
PROVIDERS: Student in an Organized Health Care Education/Training Program; Emergency Provider Registered Nurse; PCP Physician Assistant Medical
DX: A08.4 Viral intestinal infection, unspecified (principal); I11.0 Hypertensive heart disease with heart failure; I50.9 Heart failure, unspecified; I25.2 Old myocardial infarction; E11.9 Type 2 diabetes mellitus without complications; Z95.5 Presence of coronary angioplasty implant and graft; Z95.810 Presence of automatic (implantable) cardiac defibrillator; Z79.82 Long term (current) use of aspirin; Z79.84 Long term (current) use of oral hypoglycemic drugs; Z79.85 Long-term (current) use of injectable non-insulin antidiabetic drugs; Z79.899 Other long term (current) drug therapy
CPT/HCPCS: 36415; 71260; 74177; 80053; 81003; 81025; 83690; 84484; 85025; 85610; 85730; 93005; 96361; 96374; 96375; 99284; J1885; J2270; J2405; J7030; Q9967

== ENCOUNTER 2024-05-31 12:49 | Outpatient (CLI) | payer MEDICARE, MEDICAID, SELFPAY ==
[2024-05-31 14:09] LABS: Add Urine Microscopic? NO; Appearance Urine Clear (Clear); Bilirubin Urine Negative (Negative); Blood Urine Negative (Negative); Color Urine Yellow (Yellow); Glucose Urine UA 3+ mg/dL (Negative); Ketones Urine Negative (Negative); Leukocyte Esterase Ur Negative LEU/UL (Negative); Nitrate Urine Negative (Negative); Protein Urine Negative (Negative); Specific Grav Ur 1.008 (1.001-1.035); Urobilinogen Urine 0.2 mg/dL (<2.0)
[2024-05-31 15:25] LABS: Hemoglobin A1C 6.4 % (<5.7)
== END 2024-05-31 12:50 | disposition home or self-care (01) ==
LOC: ANHSURGERY 12:55
PROVIDERS: PCP Physician Assistant Medical; Visit Provider Neurological Surgery
DX: Z01.812 Encounter for preprocedural laboratory examination (principal); M43.16 Spondylolisthesis, lumbar region
CPT/HCPCS: 36415; 81003; 83036; 86850; 86900; 86901

== ENCOUNTER 2024-06-08 14:50 | Inpatient (IN) | payer MEDICARE, MEDICAID, SELFPAY ==
--- NOTE | 2024-05-31 12:55 | PC.NURSE ---
Report to the Outpatient Waiting Room, entrance under the green pavilion located off [facility], at time 7:30 AM on date _06/08/24 . Planned Procedure Time: _9:30 AM .? Time changes happen often and if your time is changed the preop area will call you the afternoon before. - You and your visitor will be asked to self-screen and do not enter if you have any COVID symptoms. Please call surgeon if you need to reschedule. - A mask is optional within the hospital at this time. Patients may have clear liquids (water, carbonated beverages, clear teas, apple juice) until 3 hours prior to surgery( 6:30) with a maximum of 20 ounces. - No food from midnight until time of surgery and no smoking. This includes no chewing gum, candy or mints. - Infants may have breast milk until 4 hours before surgery, formula 6 hours prior to surgery. - Children will be allowed to drink immediately following surgery.? If applicable, please bring a bottle or sippy cup to assist with drinking. Juice, water, soda, and popsicles are readily available.? For infants on formula, please bring formula the day of surgery.? Pacifiers are allowed. Take only the following medications with a SIP of water on the morning of surgery: _CARVEDILOL,GABAPENTIN,LEVOTHYROXINE,PAIN PILL IF NEEDED DO NOT STOP ANY OF YOUR OTHER PRESCRIPTION MEDICATIONS PRIOR TO SURGERY EXCEPT THE FOLLOWING Medications to discontinue per physician _PER DR ROSENBAUM HOLD ASPIRIN AND BRILINTA 5 DAYS PRE OP.LAST DOSE06/02/24. Please no make-up, nail indonesian, hairspray, perfume, deodorant, or body powder the day of surgery.? No jewelry (including any body piercings) or valuables the day of surgery, leave them at home.? Please take a shower or bath the night before, or the morning of, surgery with an antibacterial soap.? Wear comfortable, loose fitting clothing.? Children are encouraged to wear pajamas. - Jewelry must be removed prior to entering the operating room.? Rings and piercings that are not removed may be cut off. - The hospital will not accept responsibility for valuables.? - Please leave all valuables, including medications, at home the day of surgery. If you are going home after surgery, a licensed truck driver teamster must drive you home.? - NO public transportation without another adult if you receive anesthesia. - We recommend that an adult stay with you for 24 hours following discharge. - We also recommend that you do not drive, make important decision, drink alcoholic beverages, or take any drugs that were not prescribed by your health care provider for at least 24 hours after your discharge time. For Pediatric surgeries, we recommend two adults accompany the child home. Follow any additional instructions given to you from your surgeon. VERBAL AND WRITTEN instructions given to _PATIENT and asked if any additional questions and then verbalized understanding. Patient advised to call surgeon office or pre surgery nurse liaison [phone] if any additional questions.
[2024-05-31 13:01] VITALS: BMI 22.5
[2024-05-31 13:39] VITALS: BP 133/97; PULSE 85; RESP 18; TEMP 36.6; O2SAT 100
--- NOTE | 2024-06-07 15:35 | P.PNAN_ITS ---
Anes - Initial Pre Proc Eval Procedure: Operation Date: 06/08/24 09:30 Proposed Procedures p L4-5 Posterior Lumbar Interbody Fusion - Pérez Merlos MD Date/Time: 06/07/24 15:35 Surgeon: Pérez Merlos MD Pre Op Diagnosis: L4-5. Spondolisthesis Patient Data Age: 53 Gender: F Height: 1.65 m Weight: 61.4 kg Last Vital Signs Temp 36.6 C 05/31/24 13:39 Pulse 85 05/31/24 13:39 Resp 18 05/31/24 13:39 BP 133/97 H 05/31/24 13:39 Pulse Ox 100 05/31/24 13:39 O2 Del Method Room Air 05/31/24 13:39 Allergies Allergy/AdvReac Type Severity Reaction Status Date / Time No Known Allergies Allergy Verified 05/31/24 13:36 Home Medications ?Medication ?Instructions ?Recorded ?Confirmed ?Type aspirin 81 mg tablet,delayed 81 mg PO DAILY 10/27/20 06/08/24 History release levothyroxine 100 mcg capsule 100 mcg PO DAILY 10/27/20 06/08/24 History (Tirosint) metformin 1,000 mg tablet 1,000 mg PO BID 10/27/20 06/08/24 History nitroglycerin 0.4 mg sublingual 0.4 mg sublingual Q5M PRN Chest 10/27/20 05/31/24 History tablet Pain acetaminophen 300 mg-codeine 30 mg 1 tablet PO QHS PRN Pain 04/09/22 06/08/24 History tablet atorvastatin 80 mg tablet 80 mg PO DAILY 04/09/22 06/08/24 History bumetanide 1 mg tablet 1 mg PO DAILY 04/09/22 06/08/24 History carvedilol 6.25 mg tablet 6.25 mg PO BID 04/09/22 06/08/24 History empagliflozin 25 mg tablet 25 mg PO DAILY 04/09/22 05/31/24 History (Jardiance) sacubitril 24 mg-valsartan 26 mg 1 tablet PO BID 04/09/22 06/08/24 History tablet (Entresto) tizanidine 2 mg tablet See Rx Instructions .Route 12/09/22 05/31/24 Rx .COMPLEX #120 tabs duloxetine 30 mg capsule,delayed 60 mg PO DAILY 02/11/23 06/08/24 History release linaclotide 145 mcg capsule 145 mcg PO DAILY 05/23/23 06/08/24 History (Linzess) semaglutide 0.25 mg or 0.5 mg (2 0.25 mg subcut WEEKLY 05/23/23 05/31/24 History mg/3 mL) subcutaneous pen injector (Ozempic) atogepant 60 mg tablet (Qulipta) 60 mg PO DAILY #30 tabs 11/19/23 06/08/24 Rx gabapentin 600 mg tablet 600 mg PO BID 11/19/23 06/08/24 History sertraline 25 mg tablet 50 mg PO HS 11/19/23 06/08/24 History ubrogepant 100 mg tablet (Ubrelvy) 100 mg PO ONCE PRN migraine 11/19/23 05/31/24 Rx headache #14 tabs ticagrelor 60 mg tablet (Brilinta) 60 mg PO BID 01/21/24 06/08/24 History ondansetron 8 mg disintegrating 8 mg PO Q12H 03/09/24 05/31/24 History tablet rimegepant 75 mg disintegrating 75 mg PO ONCE PRN pain 03/09/24 05/31/24 History tablet (Nurtec ODT) dicyclomine 10 mg capsule 10 mg PO QID abdominal pain #14 04/12/24 05/31/24 Rx caps ondansetron 4 mg disintegrating 4 mg PO Q8H PRN nausea and 04/12/24 05/31/24 Rx tablet vomiting #14 tabs Patient hx anesthesia problems: none Family hx anesthesia problems: none Results Review: All pre-operative results and documents have been reviewed as part of the pre-operative evaluation. [facility] Past Medical History Medical History (Updated 06/07/24 @ 15:36 by Trenton Hensley DO) Hypothyroidism Diabetes type 2, controlled Walker as ambulation aid ICD (implantable cardioverter-defibrillator) in place Hyperlipidemia Hypertension Heart attack Surgical History Surgical History (Updated 06/07/24 @ 15:36 by Trenton Hensley DO) History of coronary artery stent placement Family History Family History Father Hypertension Grandparent Diabetes mellitus Hypertension Depression Grandparent Depression Diabetes mellitus Hypertension Social History Social History Social History: never smoker Smoking packs per day: 0 Smoking cigarettes per day: 0.0 Years smoked: 0 Smoking pack-years: 0.00 Smoking status: Never smoker Second hand tobacco smoke exposure: No Alcohol intake: current Drinks per week: 1 Alcohol use details: 1 drink a year Substance use: never Substance use type: does not use Do You Feel Safe in your Home?: Yes Lack of Transportation: No Lack of Food: Never True Current Housing: I Have Housing Concerned About Future Housing: No Difficulty Paying Gas/Electric Bills: No Difficulty Paying for Meds: No Currently Unemployed: No Education: High School Diploma/GED Difficulty w/ Childcare or Family Care: No Living arrangements: alone Anes - Eval Final PreProcedure Day of Procedure 06/07/24 15:35 Patient weight: normal Heart: regular rate and rhythm Lungs: clear to auscultation Airway: Mallampati scale class II Neurological: alert and oriented Last oral intake: >/= 8 hours ASA classification: IV Emergent: no Anesthetic plan: proceed Anesthesia type and monitoring: general ETT and standard monitoring Results Review: All pre-operative results and documents have been reviewed as part of the pre- operative evaluation. Informed Consent: The patient's anesthetic plan and its attendant risks and benefits were discussed with the patient/family/POA. Questions were solicited and answers provided to the satisfaction of the patient/family/POA.
[2024-06-08] VITALS (16 sets, daily range): BP systolic 104–149; BP diastolic 60–93; PULSE 76–95; RESP 10–18; TEMP 36.2–36.8; O2SAT 92–100
--- NOTE | ~2024-06-08 | XR_ITS ---
XR fluoroscopy no charge Indication: L4-5 posterior lumbar interbody fusion TECHNIQUE: Fluoroscopy used during L4-5 posterior lumbar interbody fusion performed by [Pérez Merlos MD] on 06/08/2024. 4 seconds of fluoroscopy with 2 fluoroscopic images captured. FINDINGS: Correlate with procedure note. IMPRESSION: Fluoroscopy used during L4-5 posterior lumbar interbody fusion. Reviewed, dictated and finalized at location A. [employer]
[2024-06-08 07:50] LABS: Glucose Point of Care 101 mg/dl (65-105)
[2024-06-08 08:27] LABS: BEDSIDEPREGUCG Negative (Negative)
--- NOTE | 2024-06-08 09:42 | PM.IMHP ---
H&P: HPI History of Present Illness Date/Time: 06/08/24 09:42 Chief Complaint: Back and leg pain Narrative: Mirtha Miramontes is a 52-year-old female who with progressive back and leg discomfort for L4-5 posterior lumbar interbody fusion. She was scheduled to undergo a L4-5 posterior lumbar interbody fusion but the surgery was canceled a year ago because of an osteomyelitis in her foot. Her symptoms have not changed substantially in intensity or location. She has pain in her low back that radiates posteriorly down her leg to the back of her knee on the right side. She is having some difficulty walking and problems with imbalance which she attributes to the pain in her back and right leg that occurs when she stands and walks. This problem has been going on for a long, long time and has been getting worse, especially recently. She states that her difficulty walking has recently progressed to the extent that she is unable to walk without an assistive device such as a cane for a walker. She reports diffuse/generalized weakness and numbness in her right lower extremity when she stands and walks that she explicitly states is non-specific; that is, she does not notice any specific muscle group weakness or dermatomal numbness in either lower extremity or anywhere else but instead states that her entire right leg feels like it's not there and sort of feels like jelly when she stands and walks. Her walking is significantly limited and she states that she cannot walk very far at all before she has to stop and sit down because of the discomfort, weakness, and numbness in her back and right leg. She has stocking distribution numbness in both feet secondary to neuropathy which she states she has been diagnosed with in the past. She is limited and distracted daily the discomfort in her back and right leg to the extent that she would consider surgical management at this point in time. She has been seeing a picture painter, specifically Dr. Eagle (Pain Management) and his RESIDENT CARE ASSISTANT Kanchan Anthony, and states that Dr. Eagle has done injections, none of which have been helpful for her in any way or for any period of time. She is not having any bowel or bladder difficulty or other new constitutional problems at this time. Review of Systems Review of Systems: All systems reviewed & are unremarkable except as noted in HPI and below Denies chills, Denies fever(s), Reports weakness, Denies weight gain and Denies weight loss Eyes Denies change in vision and Denies diplopia ENT Denies neck pain and Reports disequilibrium Card Denies chest pain and Denies dyspnea Resp Denies cough and Denies dyspnea GI Denies abdominal pain, Denies change in bowel habits, Denies fecal incontinence and Denies vomiting Denies hematuria, Denies urinary frequency, Denies difficulty voiding, Denies dysuria, Denies urinary incontinence, Denies urinary hesitancy and Denies urinary urgency Musc Reports as per HPI, Reports abnormal gait, Reports back pain, Reports muscle weakness, Denies neck pain, Reports numbness and Reports radiating pain into limb Skin/ Breast Reports system reviewed and no additional complaints, except as documented Neuro Reports as per HPI, Reports abnormal gait, Denies focal weakness, Reports numbness, Reports radicular pain, Reports disequilibrium and Reports weakness Psych Reports no additional complaints, Denies depression and Denies hopelessness Endo Reports no additional complaints and Denies polyuria Elpidio/ Lymph Reports no additional complaints Aller/ Immun Reports no additional complaints PMFSH Past Medical History Medical History (Updated 06/07/24 @ 15:36 by Trenton Hensley DO) Hypothyroidism Diabetes type 2, controlled Walker as ambulation aid ICD (implantable cardioverter-defibrillator) in place Hyperlipidemia Hypertension Heart attack Surgical History Surgical History (Updated 06/07/24 @ 15:36 by Ternton Hensley DO) History of coronary artery stent placement Family History Family History Father Hypertension Grandparent Diabetes mellitus Hypertension Depression Grandparent Depression Diabetes mellitus Hypertension Social History Social History Social History: never smoker Smoking packs per day: 0 Smoking cigarettes per day: 0.0 Years smoked: 0 Smoking pack-years: 0.00 Smoking status: Never smoker Second hand tobacco smoke exposure: No Alcohol intake: current Drinks per week: 1 Alcohol use details: 1 drink a year Substance use: never Substance use type: does not use Do You Feel Safe in your Home?: Yes Lack of Transportation: No Lack of Food: Never True Current Housing: I Have Housing Concerned About Future Housing: No Difficulty Paying Gas/Electric Bills: No Difficulty Paying for Meds: No Currently Unemployed: No Education: High School Diploma/GED Difficulty w/ Childcare or Family Care: No Living arrangements: alone Meds Home Medications and Allergies Home Medications ?Medication ?Instructions ?Recorded ?Confirmed ?Type aspirin 81 mg tablet,delayed 81 mg PO DAILY 10/27/20 06/08/24 History release levothyroxine 100 mcg capsule 100 mcg PO DAILY 10/27/20 06/08/24 History (Tirosint) metformin 1,000 mg tablet 1,000 mg PO BID 10/27/20 06/08/24 History nitroglycerin 0.4 mg sublingual 0.4 mg sublingual Q5M PRN Chest 10/27/20 05/31/24 History tablet Pain acetaminophen 300 mg-codeine 30 mg 1 tablet PO QHS PRN Pain 04/09/22 06/08/24 History tablet atorvastatin 80 mg tablet 80 mg PO DAILY 04/09/22 06/08/24 History bumetanide 1 mg tablet 1 mg PO DAILY 04/09/22 06/08/24 History carvedilol 6.25 mg tablet 6.25 mg PO BID 04/09/22 06/08/24 History empagliflozin 25 mg tablet 25 mg PO DAILY 04/09/22 05/31/24 History (Jardiance) sacubitril 24 mg-valsartan 26 mg 1 tablet PO BID 04/09/22 06/08/24 History tablet (Entresto) tizanidine 2 mg tablet See Rx Instructions .Route 12/09/22 05/31/24 Rx .COMPLEX #120 tabs duloxetine 30 mg capsule,delayed 60 mg PO DAILY 02/11/23 06/08/24 History release linaclotide 145 mcg capsule 145 mcg PO DAILY 05/23/23 06/08/24 History (Linzess) semaglutide 0.25 mg or 0.5 mg (2 0.25 mg subcut WEEKLY 05/23/23 05/31/24 History mg/3 mL) subcutaneous pen injector (Ozempic) atogepant 60 mg tablet (Qulipta) 60 mg PO DAILY #30 tabs 11/19/23 06/08/24 Rx gabapentin 600 mg tablet 600 mg PO BID 11/19/23 06/08/24 History sertraline 25 mg tablet 50 mg PO HS 11/19/23 06/08/24 History ubrogepant 100 mg tablet (Ubrelvy) 100 mg PO ONCE PRN migraine 11/19/23 05/31/24 Rx headache #14 tabs ticagrelor 60 mg tablet (Brilinta) 60 mg PO BID 01/21/24 06/08/24 History ondansetron 8 mg disintegrating 8 mg PO Q12H 03/09/24 05/31/24 History tablet rimegepant 75 mg disintegrating 75 mg PO ONCE PRN pain 03/09/24 05/31/24 History tablet (Nurtec ODT) dicyclomine 10 mg capsule 10 mg PO QID abdominal pain #14 04/12/24 05/31/24 Rx caps ondansetron 4 mg disintegrating 4 mg PO Q8H PRN nausea and 04/12/24 05/31/24 Rx tablet vomiting #14 tabs Allergies Allergy/AdvReac Type Severity Reaction Status Date / Time No Known Allergies Allergy Verified 05/31/24 13:36 Vital Signs Vital Signs - 24 hr 06/08/24 08:00 Temperature 97.8 F Pulse Rate 76 Respiratory Rate 16 Blood Pressure 114/82 Pulse Oximetry 99 Oxygen Delivery Room Air Exam Narrative: General: cooperative, no acute distress, well developed, alert and awake Orientation/Consciousness: oriented to person, oriented to place and oriented to time Constitutional Limitations: no limitations Other: The patient is a normally developed, normal appearing female sitting on the examination table in no acute distress. She is awake, alert, and oriented x3 with good fund of knowledge, recall of events, and fluent speech. [facility] Head: normocephalic and atraumatic Ears: external ears normal Face/Nose/Sinus: Normal external nose present Eyes Eyelids: eyelids normal Pupils: Yes Pupils normal by confrontation EOM: EOMs intact bilaterally Neck General: Yes no meningeal signs, Yes supple and Yes no JVD Resp Effort/Inspection: normal respiratory effort and able to speak in complete sentences Cardio Rate: Yes regular rate GI Inspection: No abdominal distension Musc Other: Examination of the back reveals mid-lumbar paraspinal tenderness. Range of motion of the back is decreased and painful in forward flexion, extension, and lateral rotation. Straight leg raise is negative bilaterally. Mendez?s test is negative bilaterally. Skin General: normal color Neuro General: Yes oriented to person, Yes oriented to place, Yes oriented to time, Yes normal cognition and Yes no meningeal signs Cranial Nerves: Yes CN's II-XII intact bilaterally Other: Motor: Strength is normal (5/5) throughout all muscle groups of the bilateral lower extremities to direct confrontation. Sensory: Stocking distribution numbness to the ankle bilaterally. Sensation is otherwise intact to light touch throughout the lower extremities bilaterally. Reflexes: Deep tendon reflexes are difficult to elicit at the knees and ankles bilaterally. There is no ankle clonus. Gait: Gait is antalgic but independent and steady for short periods of time and over short distances with a cane as an assistive device. 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 Neither her symptoms or her imaging has changed appreciably since a year ago when we 1st planned surgery. She is now clear from medical perspective with regards to the osteomyelitis in her foot. She has undergone physical therapy and injections by picture painter without any permanent benefit. I therefore make the same recommendation that she proceed with surgical management by way of L4-5 posterior lumbar interbody fusion and I described to her that operation, its risks, potential benefits, the operative and postoperative course in detail and answered all her questions personally. We discussed risks including but not limited to permanent neurologic deficit secondary to nerve root injury, need for reoperation secondary to infection, bleeding, CSF leak, adjacent level disease, recurrent residual pathology, instability, malposition migration of the hardware or nonunion, failure of the procedure to relieve her pain or symptoms, persistent pain, medical complications related anesthesia or surgery, etc.. She indicates understanding and elects to proceed with that operation.
--- NOTE | 2024-06-08 09:44 | WPDHPUPDATE1 ---
History and Physical Update Update Date/Time: 06/08/24 09:44 History and Physical has been reviewed, including an updated exam of the patient. There are NO changes in the patient's condition. Risks, benefits, and alternatives have been discussed and questions answered. Patient agrees to proceed with procedure.
[2024-06-08] MEDS: ceFAZolin 2 GM/D5W 50 ML 2 GM/50 ML BAG IVPB (09:59)
[2024-06-08] MEDS: LIDO 1%/EPINEPHRINE 1:100,000 50 ML VIAL 10 ML INFILTRATE (10:48)
[2024-06-08] MEDS: LACTATED RINGERS 1,000 ML 30 ML IV CONT ×2 (12:19)
[2024-06-08 12:28] LABS: Glucose Point of Care 117 mg/dl (65-105)
--- NOTE | 2024-06-08 12:34 | P.OP_ITS ---
Procedure Note - Detailed Date of Procedure 06/08/24 Pre-op Diagnosis L4-5. Spondolisthesis Post-op Diagnosis Same Procedure Performed L4-5 complete laminectomy and bilateral facetectomy, L4-5 complete diskectomy and interbody arthrodesis utilizing titanium interbody devices and local autograft, L4-5 pedicle screw instrumentation Surgeon Pérez Merlos MD Anesthesia General Description of Procedure The patient was brought to the operating room in the supine position, was sedated, intubated placed under general anesthesia in routine fashion. She was then turned into the prone position on a Paulino frame. The of operation on her back was examined, marked for incision, prepped and draped in routine sterile fashion. Incision was marked over the L4-L5 spinous processes in the midline. This area was injected with 0.5% lidocaine with [id number] epinephrine. Intravenous antibiotics given prior to incision. Incision was made with a 10 blade scalpel down to the lumbodorsal fascia. A subperiosteal dissection of the muscle soft tissue within spinous process and lamina was performed with a subperiosteal elevator and Bovie cautery. A verifying x-rays obtained to verify the level of operation. The L4 spinous process was removed with a Aaron rongeur. Kerrison punches, curved curettes a Leksell rongeur used to remove lamina in the midline to the soft contents of the canal were encountered. A Midas Mina drill was used to resect the pars bilaterally at L4. The inferior articular process and facet of L4 could then be removed bilaterally. These post spinous processes were stripped free of soft tissue and morselized for later use as interbody autograft. Kerrison punches and curved curettes were used to define a plane with the dura and removed bone ligament flush with the pedicles and through the foramina widely decompressing the exiting nerve roots. With the thecal sac retracted and protected disc space was entered bilaterally using an 11 blade scalpel. Scrapers a Veress sizes, curettes of various configurations, pituitary rongeur and a rasp were used to remove as much cartilaginous endplate and disc material as possible down to bleeding cortical flat surfaces on the opposing bones. The disc space was incised appropriately sized interbody devices were chosen and filled with local autograft bone. The disc space was likewise filled with local autograft bone medially and anteriorly. Interbody devices were then placed to 2-3 mm countersink within the disc space bilaterally. Pedicle screw instrumentation was then performed by observing and palpating the pedicle a hole was made and superior to the process above the pedicle using a Midas Mina drill. The pedicle was then cannulated with a pedicle probe, checked for continuity with the ball probe, tapped with 5.5 mm tap and a 6.5 x 50 mm screw was placed into each pedicle on each side. Rods were placed into the sc rew heads on either side and secured in position using the caps that purpose. These were definitively tightened with a torque and anti torque device. A verifying x-rays obtained to verify good position of the instrumentation which was confirmed. The wound was then copiously irrigated with bacitracin irrigation all bleeding stopped with bipolar Bovie cautery and Gelfoam thrombin powder. The wound was then closed in layered fashion with 2-0 Vicryl interrupted sutures in the lumbodorsal fascia and Racquel's layer. 3-0 Vicryl buried interrupted sutures were placed in the dermis and the skin was closed with a running 4-0 Monocryl subcuticular stitch and dressed with Dermabond. The patient was allowed to wake up in the operating room and was taken to the recovery room in stable condition. There were no immediate complications of this operation. All counts were reported correct at the end of the case. Blood loss was 150 cc. The patient was neurologically at her baseline postopera tively. Implants Titanium pedicle screws, rods and interbody devices Estimated Blood Loss 150 Drains Yes Complications None Condition Stable Disposition PACU [facility] Billing Surgery - Charge Forward: Surgery Billing
[2024-06-08] MEDS: fentaNYL CITRATE INJ (*CRX) 100 MCG/2 ML VIAL 25 MCG IV PUSH ×5 (12:45→14:05)
--- NOTE | 2024-06-08 13:36 | SUR.PHASEI ---
1336 - Dillon with [email or web address] using live control interrogated patients AICD and stated everything is working properly.
[2024-06-08] MEDS: CYCLOBENZAPRINE HCL 10 MG TABLET PO (15:15)
[2024-06-08] MEDS: HYDROcodone/acetaminophen (*CRX) 10-325 MG TABLET 1 TAB PO (15:15)
[2024-06-08] MEDS: metFORMIN HCL 500 MG TABLET 1000 MG PO (17:48)
[2024-06-08] MEDS: GABAPENTIN 300 MG CAPSULE 600 MG PO (17:49)
[2024-06-08] MEDS: carvediloL 6.25 MG TABLET PO (17:49)
[2024-06-08] MEDS: ceFAZolin 1 GM/NS 50 ML 1 GM/50 ML BAG IVPB (17:49)
[2024-06-08] MEDS: HYDROmorphone HCL INJ (*CRX) 1 MG/ML SYR 0.5 MG IV PUSH ×2 (18:39→21:00)
[2024-06-08] MEDS: DULoxetine HCL 30 MG CAPSULE.DR 60 MG PO (20:55)
[2024-06-08] MEDS: DOCUSATE SODIUM 100 MG CAPSULE PO (20:56)
[2024-06-08] MEDS: SERTRALINE HCL 50 MG TABLET PO (20:56)
[2024-06-08] MEDS: ATORVASTATIN 40 MG TABLET 80 MG PO (20:56)
[2024-06-08] MEDS: TICAGRELOR 60 MG TABLET PO (20:56)
[2024-06-08] MEDS: SACUBITRIL/VALSARTAN 24-26 MG TABLET 1 TAB PO (20:56)
[2024-06-09] VITALS (8 sets, daily range): BP systolic 106–116; BP diastolic 60–64; PULSE 82–88; RESP 16–20; TEMP 36.6–36.8; O2SAT 95–98
[2024-06-09] MEDS: ceFAZolin 1 GM/NS 50 ML 1 GM/50 ML BAG IVPB ×3 (01:37→17:16)
[2024-06-09] MEDS: HYDROcodone/acetaminophen (*CRX) 10-325 MG TABLET 1 TAB PO ×3 (01:42→10:10)
[2024-06-09] MEDS: LEVOTHYROXINE SODIUM 100 MCG TABLET PO (05:48)
[2024-06-09] MEDS: LINACLOTIDE 145 MCG CAPSULE PO (05:48)
[2024-06-09] MEDS: metFORMIN HCL 500 MG TABLET 1000 MG PO ×2 (09:57→16:07)
[2024-06-09] MEDS: TICAGRELOR 60 MG TABLET PO ×2 (09:58→21:14)
[2024-06-09] MEDS: SACUBITRIL/VALSARTAN 24-26 MG TABLET 1 TAB PO ×2 (09:58→21:16)
[2024-06-09] MEDS: GABAPENTIN 300 MG CAPSULE 600 MG PO ×2 (09:58→16:07)
[2024-06-09] MEDS: carvediloL 6.25 MG TABLET PO ×2 (09:58→16:08)
[2024-06-09] MEDS: EMPAGLIFLOZIN 25 MG TABLET PO (09:58)
[2024-06-09] MEDS: DOCUSATE SODIUM 100 MG CAPSULE PO ×2 (09:58→21:15)
[2024-06-09] MEDS: HYDROmorphone HCL INJ (*CRX) 1 MG/ML SYR 0.5 MG IV PUSH (11:30)
--- NOTE | 2024-06-09 14:28 | P.PNNEUSUR_ITS ---
Progress Note: A&P Assessment and Plan (1) Status post lumbar spinal arthrodesis: Code(s): Z98.1 - Arthrodesis status Status: Acute Plan -Keep hemovac drain today -Will make adjustments to pain medications to cut down on IV use -Anticipate discharge home tomorrow Subjective Date/time seen: 06/09/24 14:28 Interval history: Doing well overall with decent pain control; she is requiring IV medication though. She does complain of pain in the back and right leg which was present before surgery. Ambulated with therapy who cleared her for discharge. She has been voiding independently and had a BM today. Tolerating oral intake without nausea/vomiting Review of Systems Review of Systems: All systems reviewed & are unremarkable except as noted in HPI and below Exam Narrative: AOx4 Incision c/d/i Right dorsiflexion 4+/5 which she states is stable compared to pre-op Paresthesias in right thigh, also present pre-op Objective Data Vital Signs Vital Signs: Vital Signs - 24 hr 06/08/24 14:45 06/08/24 15:00 06/08/24 15:30 Temperature 97.6 F 97.6 F 97.6 F Pulse Rate 82 83 80 Respiratory Rate 16 16 17 Blood Pressure 104/70 116/72 113/65 Pulse Oximetry 92 97 96 Oxygen Delivery 06/08/24 16:26 06/08/24 16:30 06/08/24 17:49 Temperature 97.6 F Pulse Rate 85 85 Respiratory Rate 18 Blood Pressure 114/70 Pulse Oximetry 96 Oxygen Delivery Room Air 06/08/24 20:00 06/08/24 20:44 06/09/24 01:49 Temperature 98.3 F 98.1 F Pulse Rate 84 83 Respiratory Rate 16 16 Blood Pressure 105/60 106/63 Pulse Oximetry 96 95 Oxygen Delivery Room Air 06/09/24 05:45 06/09/24 09:19 06/09/24 09:58 Temperature 98.1 F Pulse Rate 88 88 Respiratory Rate 16 Blood Pressure 110/64 Pulse Oximetry 96 Oxygen Delivery Room Air 06/09/24 09:59 06/09/24 10:00 06/09/24 10:33 Temperature 98 F Pulse Rate 88 84 Respiratory Rate 16 17 Blood Pressure 112/64 Pulse Oximetry 96 96 Oxygen Delivery Room Air Room Air Intake/Output Intake/Output: Intake & Output 06/06/24 06/07/24 06/08/24 06/09/24 23:59 23:59 23:59 23:59 Intake Total 1140 1030 Output Total 750 1220 Balance 390 -190 Meds/Results Medications: Active Medications Generic Name Dose Route Start Last Admin Trade Name Freq PRN Reason Stop Dose Admin Hydrocodone Bitart/Acetaminophen 1 tab 06/08/24 14:50 Hydrocodone/Acetaminophen (*Crx) 5-325 Mg Tablet PO Q4H PRN Mild Pain (1-3) Hydrocodone Bitart/Acetaminophen 1 tab 06/08/24 14:50 06/09/24 10:10 Hydrocodone/Acetaminophen (*Crx) 10-325 Mg Tablet PO 1 tab Q4H PRN Administration Moderate Pain (4-6) Al Hydrox/Mg Hydrox/Simethicone 20 ml 06/08/24 14:50 Mag Hydrox/Al Hydrox/Simeth 30 Ml Udc PO Q4H PRN Indigestion/Heartburn Atorvastatin Calcium 80 mg 06/08/24 21:00 06/08/24 20:56 Atorvastatin 40 Mg Tablet PO 80 mg HS KISHA Administration Bisacodyl 10 mg 06/08/24 14:50 Bisacodyl 10 Mg Suppository RECTAL DAILY PRN Constipation Bumetanide 1 mg 06/10/24 09:00 Bumetanide 1 Mg Tablet PO MoTh@0900 KISHA Carvedilol 6.25 mg 06/08/24 17:00 06/09/24 09:58 Carvedilol 6.25 Mg Tablet PO 6.25 mg BID KISHA Administration Cyclobenzaprine HCl 10 mg 06/08/24 14:50 06/08/24 15:15 Cyclobenzaprine Hcl 10 Mg Tablet PO 10 mg TID PRN Administration Muscle Spasms Docusate Sodium 100 mg 06/08/24 21:00 06/09/24 09:58 Docusate Sodium 100 Mg Capsule PO 100 mg Q12HR KISHA Administration Duloxetine HCl 60 mg 06/08/24 21:00 06/08/24 20:55 Duloxetine Hcl 30 Mg Capsule.Dr PO 60 mg HS KISHA Administration Empagliflozin 25 mg 06/09/24 09:00 06/09/24 09:58 Empagliflozin 25 Mg Tablet PO 25 mg DAILY KISHA Administration Gabapentin 600 mg 06/08/24 17:00 06/09/24 09:58 Gabapentin 300 Mg Capsule PO 600 mg BID KISHA Administration Hydromorphone HCl 0.5 mg 06/08/24 14:50 06/09/24 11:30 Hydromorphone Hcl Inj (*Crx) 1 Mg/Ml Syr IV PUSH 0.5 mg Q2H PRN Administration Pain Rated 7-10 Cefazolin Sodium 1 gm in 50 mls @ 100 mls/hr 06/08/24 18:00 06/09/24 09:59 Ancef 1 Gm/Ns 50 Ml IVPB 100 mls/hr Q8H KISHA Administration Potassium Chloride/Dextrose/Sod Cl 1,000 mls @ 100 mls/hr 06/08/24 14:50 Kcl 20 Meq/D5/0.45% Sod Chl IV CONT .Q10H KISHA Levothyroxine Sodium 100 mcg 06/09/24 06:30 06/09/24 05:48 Levothyroxine Sodium 100 Mcg Tablet PO 100 mcg DAILY@0630 KISHA Administration Linaclotide 145 mcg 06/09/24 06:30 06/09/24 05:48 Linaclotide 145 Mcg Capsule PO 145 mcg DAILY@0630 KISHA Administration Metformin HCl 1,000 mg 06/08/24 17:00 06/09/24 09:57 Metformin Hcl 500 Mg Tablet PO 1,000 mg BIDWM KISHA Administration Miscellaneous Information 1 each 06/08/24 00:01 Atogepant [Qulipta] Is Nonformulary. Can She Use Home Supply Or Hold While Hospitalized? XX 07/08/24 00:00 [facility]IFY [facility] Miscellaneous Information 1 each 06/08/24 00:01 Ondansetron Oral Ordered Q12hr. Cancel Order? Has Zofran Iv Prn Active On Profile XX 07/08/24 00:00 [facility] Miscellaneous Information 1 each 06/08/24 00:01 Rimegepant [Nurtec Odt] Prn Is Nonformulary. Hold While Hospitalized? XX 07/08/24 00:00 [facility] Miscellaneous Information 1 each 06/08/24 00:01 Ozempic Weekly Is Nonformulary. Can She Use Home Supply Or Hold While Hospitalized? XX 07/08/24 00:00 [facility] Nitroglycerin 0.4 mg 06/08/24 14:50 Nitroglycerin Sl 0.4 Mg Tablet SUBLINGUAL Q5MIN PRN Chest Pain Non-Formulary Medication 60 mg 06/09/24 09:00 Atogepant [Qulipta] PO 07/09/24 08:59 DAILY KISHA Non-Formulary Medication 8 mg 06/08/24 14:50 Ondansetron PO 07/08/24 14:49 Q12H KISHA Non-Formulary Medication 75 mg 06/08/24 14:50 Rimegepant [Nurtec Odt] PO ONCE PRN pain Non-Formulary Medication 0.25 mg 06/15/24 09:00 Semaglutide [Ozempic] SUB-Q 07/15/24 08:59 WEEKLY KISHA Non-Formulary Medication 100 mg 06/08/24 14:50 Ubrogepant [Ubrelvy] PO ONCE PRN migraine headache Ondansetron HCl 4 mg 06/08/24 14:50 Ondansetron Inj 4 Mg/2 Ml Vial IV PUSH Q8H PRN Nausea And Vomiting Sacubitril/Valsartan 1 tab 06/08/24 21:00 06/09/24 09:58 Sacubitril/Valsartan 24-26 Mg Tablet PO 1 tab Q12HR KISHA Administration Senna/Docusate Sodium 1 tab 06/08/24 14:50 Senna/Docusate Sodium Tablet PO HS PRN Constipation Sertraline HCl 50 mg 06/08/24 21:00 06/08/24 20:56 Sertraline Hcl 50 Mg Tablet PO 50 mg HS KISHA Administration Ticagrelor 60 mg 06/08/24 21:00 06/09/24 09:58 Ticagrelor 60 Mg Tablet PO 60 mg Q12HR KISHA Administration Tizanidine HCl 2 mg 06/08/24 14:50 Tizanidine Hcl 2 Mg Tablet BY MOUTH Q6-8H PRN MUSCLE SPASTICITY Radiology Results: ITS Impressions Fluoroscopy 06/08/24 13:15 IMPRESSION: Fluoroscopy used during L4-5 posterior lumbar interbody fusion.
[2024-06-09] MEDS: ACETAMINOPHEN 500 MG TABLET 1000 MG PO ×2 (16:07→21:14)
[2024-06-09] MEDS: oxyCODONE HCL (*CRX) 5 MG TAB IR 10 MG PO (17:53)
[2024-06-09] MEDS: ATORVASTATIN 40 MG TABLET 80 MG PO (21:15)
[2024-06-09] MEDS: DULoxetine HCL 30 MG CAPSULE.DR 60 MG PO (21:15)
[2024-06-09] MEDS: SERTRALINE HCL 50 MG TABLET PO (21:16)
[2024-06-10 00:08] VITALS: BP 100/60; PULSE 91; RESP 20; TEMP 36.6; O2SAT 96
[2024-06-10] MEDS: ACETAMINOPHEN 500 MG TABLET 1000 MG PO ×3 (02:24→14:19)
[2024-06-10] MEDS: ceFAZolin 1 GM/NS 50 ML 1 GM/50 ML BAG IVPB ×3 (02:25→17:26)
[2024-06-10 04:00] VITALS: BP 102/63; PULSE 92; RESP 20; TEMP 36.6; O2SAT 98
[2024-06-10] MEDS: oxyCODONE HCL (*CRX) 5 MG TAB IR 10 MG PO (04:36)
[2024-06-10] MEDS: LEVOTHYROXINE SODIUM 100 MCG TABLET PO (05:38)
[2024-06-10] MEDS: LINACLOTIDE 145 MCG CAPSULE PO (05:38)
[2024-06-10 07:45] VITALS: RESP 20; O2SAT 98
[2024-06-10] MEDS: BUMETANIDE 1 MG TABLET PO (08:40)
[2024-06-10] MEDS: metFORMIN HCL 500 MG TABLET 1000 MG PO ×2 (08:40→16:07)
[2024-06-10] MEDS: EMPAGLIFLOZIN 25 MG TABLET PO (08:40)
[2024-06-10 08:41] VITALS: PULSE 92
[2024-06-10] MEDS: GABAPENTIN 300 MG CAPSULE 600 MG PO ×2 (08:41→16:07)
[2024-06-10] MEDS: carvediloL 6.25 MG TABLET PO ×2 (08:41→16:07)
[2024-06-10] MEDS: DOCUSATE SODIUM 100 MG CAPSULE PO (08:41)
[2024-06-10] MEDS: SACUBITRIL/VALSARTAN 24-26 MG TABLET 1 TAB PO (08:41)
[2024-06-10] MEDS: TICAGRELOR 60 MG TABLET PO (08:41)
--- NOTE | 2024-06-10 13:43 | WPDNEUROSGPN ---
Progress Note: A&P Assessment and Plan (1) Status post lumbar spinal arthrodesis: Code(s): Z98.1 - Arthrodesis status Status: Acute Plan -Remove drain today -Discharge home -Wound care and activity precautions discussed -Follow up with Dr. Merlos in clinic in about 6 weeks Subjective Date/time seen: 06/10/24 13:43 Interval history: She is doing well today with better pain control. The right leg pain remains about the same. She has been voiding, ambulating, and tolerating oral intake. She feels ready to go home today Review of Systems Review of Systems: All systems reviewed & are unremarkable except as noted in HPI and below Exam Narrative: AOx4 Full strength in lower extremities Sensation intact Incision c/d/i Objective Data Vital Signs Vital Signs: Vital Signs - 24 hr 06/09/24 16:08 06/09/24 18:00 06/09/24 22:26 Temperature 98.2 F 98.2 F Pulse Rate 84 82 88 Respiratory Rate 17 20 Blood Pressure 116/62 110/60 Pulse Oximetry 96 98 Oxygen Delivery 06/10/24 00:08 06/10/24 04:00 06/10/24 07:45 Temperature 97.9 F 97.9 F Pulse Rate 91 92 Respiratory Rate 20 20 20 Blood Pressure 100/60 102/63 Pulse Oximetry 96 98 98 Oxygen Delivery Room Air 06/10/24 08:41 Temperature Pulse Rate 92 Respiratory Rate Blood Pressure Pulse Oximetry Oxygen Delivery Intake/Output Intake/Output: Intake & Output 06/07/24 06/08/24 06/09/24 06/10/24 23:59 23:59 23:59 23:59 Intake Total 1140 1370 340 Output Total 750 1390 40 Balance 390 -20 300 Meds/Results Medications: Active Medications Generic Name Dose Route Start Last Admin Trade Name Freq PRN Reason Stop Dose Admin Acetaminophen 1,000 mg 06/09/24 15:00 06/10/24 08:40 Acetaminophen 500 Mg Tablet PO 1,000 mg Q6H KISHA Administration Al Hydrox/Mg Hydrox/Simethicone 20 ml 06/08/24 14:50 Mag Hydrox/Al Hydrox/Simeth 30 Ml Udc PO Q4H PRN Indigestion/Heartburn Atorvastatin Calcium 80 mg 06/08/24 21:00 06/09/24 21:15 Atorvastatin 40 Mg Tablet PO 80 mg HS KISHA Administration Bisacodyl 10 mg 06/08/24 14:50 Bisacodyl 10 Mg Suppository RECTAL DAILY PRN Constipation Bumetanide 1 mg 06/10/24 09:00 06/10/24 08:40 Bumetanide 1 Mg Tablet PO 1 mg MoTh@0900 KISHA Administration Carvedilol 6.25 mg 06/08/24 17:00 06/10/24 08:41 Carvedilol 6.25 Mg Tablet PO 6.25 mg BID KISHA Administration Cyclobenzaprine HCl 10 mg 06/08/24 14:50 06/08/24 15:15 Cyclobenzaprine Hcl 10 Mg Tablet PO 10 mg TID PRN Administration Muscle Spasms Docusate Sodium 100 mg 06/08/24 21:00 06/10/24 08:41 Docusate Sodium 100 Mg Capsule PO 100 mg Q12HR KISHA Administration Duloxetine HCl 60 mg 06/08/24 21:00 06/09/24 21:15 Duloxetine Hcl 30 Mg Capsule.Dr PO 60 mg HS KISHA Administration Empagliflozin 25 mg 06/09/24 09:00 06/10/24 08:40 Empagliflozin 25 Mg Tablet PO 25 mg DAILY [facility] Administration Gabapentin 600 mg 06/08/24 17:00 06/10/24 08:41 Gabapentin 300 Mg Capsule PO 600 mg BID [facility] Administration Hydromorphone HCl 0.5 mg 06/08/24 14:50 06/09/24 11:30 Hydromorphone Hcl Inj (*Crx) 1 Mg/Ml Syr IV PUSH 0.5 mg Q2H PRN Administration Breakthrough Pain Cefazolin Sodium 1 gm in 50 mls @ 100 mls/hr 06/08/24 18:00 06/10/24 10:13 Ancef 1 Gm/Ns 50 Ml IVPB Infused Q8H [facility] Infusion Potassium Chloride/Dextrose/Sod Cl 1,000 mls @ 100 mls/hr 06/08/24 14:50 Kcl 20 Meq/D5/0.45% Sod Chl IV CONT .Q10H [facility] Levothyroxine Sodium 100 mcg 06/09/24 06:30 06/10/24 05:38 Levothyroxine Sodium 100 Mcg Tablet PO 100 mcg DAILY@0630 KISHA Administration Linaclotide 145 mcg 06/09/24 06:30 06/10/24 05:38 Linaclotide 145 Mcg Capsule PO 145 mcg DAILY@0630 KISHA Administration Metformin HCl 1,000 mg 06/08/24 17:00 06/10/24 08:40 Metformin Hcl 500 Mg Tablet PO 1,000 mg BIDWM KISHA Administration Miscellaneous Information 1 each 06/08/24 00:01 06/10/24 08:38 Atogepant [Qulipta] Is Nonformulary. Can She Use Home Supply Or Hold While Hospitalized? XX 07/08/24 00:00 Not Given [facility] Miscellaneous Information 1 each 06/08/24 00:01 06/10/24 08:39 Ondansetron Oral Ordered Q12hr. Cancel Order? Has Zofran Iv Prn Active On Profile XX 07/08/24 00:00 Not Given [facility] Miscellaneous Information 1 each 06/08/24 00:01 06/10/24 08:39 Rimegepant [Nurtec Odt] Prn Is Nonformulary. Hold While Hospitalized? XX 07/08/24 00:00 Not Given [facility] Miscellaneous Information 1 each 06/08/24 00:01 06/10/24 08:39 Ozempic Weekly Is Nonformulary. Can She Use Home Supply Or Hold While Hospitalized? XX 07/08/24 00:00 Not Given [facility] Nitroglycerin 0.4 mg 06/08/24 14:50 Nitroglycerin Sl 0.4 Mg Tablet SUBLINGUAL Q5MIN PRN Chest Pain Non-Formulary Medication 60 mg 06/09/24 09:00 Atogepant [Qulipta] PO 07/09/24 08:59 DAILY KISHA Non-Formulary Medication 8 mg 06/08/24 14:50 Ondansetron PO 07/08/24 14:49 Q12H KISHA Non-Formulary Medication 75 mg 06/08/24 14:50 Rimegepant [Nurtec Odt] PO ONCE PRN pain Non-Formulary Medication 0.25 mg 06/15/24 09:00 Semaglutide [Ozempic] SUB-Q 07/15/24 08:59 WEEKLY KISHA Non-Formulary Medication 100 mg 06/08/24 14:50 Ubrogepant [Ubrelvy] PO ONCE PRN migraine headache Ondansetron HCl 4 mg 06/08/24 14:50 Ondansetron Inj 4 Mg/2 Ml Vial IV PUSH Q8H PRN Nausea And Vomiting Oxycodone HCl 10 mg 06/09/24 14:35 06/10/24 04:36 Oxycodone Hcl (*Crx) 5 Mg Tab Ir PO 10 mg Q4H PRN Administration Pain Rated 7-10 Oxycodone HCl 5 mg 06/09/24 14:35 Oxycodone Hcl (*Crx) 5 Mg Tab Ir PO Q4H PRN Pain Rated 4-6 Sacubitril/Valsartan 1 tab 06/08/24 21:00 06/10/24 08:41 Sacubitril/Valsartan 24-26 Mg Tablet PO 1 tab Q12HR KISHA Administration Senna/Docusate Sodium 1 tab 06/08/24 14:50 Senna/Docusate Sodium Tablet PO HS PRN Constipation Sertraline HCl 50 mg 06/08/24 21:00 06/09/24 21:16 Sertraline Hcl 50 Mg Tablet PO 50 mg HS KISHA Administration Ticagrelor 60 mg 06/08/24 21:00 06/10/24 08:41 Ticagrelor 60 Mg Tablet PO 60 mg Q12HR KISHA Administration Tizanidine HCl 2 mg 06/08/24 14:50 Tizanidine Hcl 2 Mg Tablet BY MOUTH Q6-8H PRN MUSCLE SPASTICITY Radiology Results: ITS Impressions Fluoroscopy 06/08/24 13:15 IMPRESSION: Fluoroscopy used during L4-5 posterior lumbar interbody fusion.
--- OUTSIDE RECORDS SUMMARY | 2024-06-10 15:07 | XMS_ITS ---
Author Organization [facility] Address [address] [place] [address] Phone Care Team Providers Care Construction Worker Name Role Phone EUFEMIA GRIMES, DENNISE Vita Unavailable [phone] CAMPOS WHEELER MD Primary Care Provider [phone] Problems Includes: Active, inactive, and resolved Problems All Visits Onset Date Resolved Date Provider Condition S tatus Coronary Artery Disease Unknown JANAE Lynn PELON CURER ACID DRUM-FPA, BASKETBALL PLAYER-BC Active Last Documented On 3 10:16AM ; [facility] Diabetes Mellitus Unknown JANAE Shane PELON APR N-FPA, BASKETBALL PLAYER-BC Active Last Documented On 3 10:18AM ; [facility] Hypothyroidism Unknown JANAE Lynn PELON CURER ACID DRUM-F PA, BASKETBALL PLAYER-BC Active Last Documented On 3 10:18AM ; [facility] Plan of Treatment Referrals To Diagnosis Pain Management [facility] - [address] [place] [address] - Spinal stenosis, lumbar region with neurogenic claudication Note: Consent for bilateral L4-5 transforaminal epidural.Hold Plavix X7 days prior to procedure Last Documented On 3 3:50PM ; [facility] Pain Management [facility] - [address] [place] [address] - Spinal stenosis, lumbar region with neurogenic claudication Note: consent for right L3-4 , L5-S1 transforaminal epiduralschedule in 6 weeks when done with IV antibiotics Last Documented On 3 10:08AM ; [facility] Neurosurgeon RAHUL MERLOS MD Spinal steno sis, lumbar region with neurogenic claudication Last Documented On 3 3:21PM ; [facility] Education and Decision Aids were provided during visit for: Pill Count: seven TYLENOL #3 Last Documented On 4 1:36PM ; [facility] Pill Count: three TYLENOL #3 Last Documented On 3 9:55AM ; [facility] Pill Count: three TYLENOL #3 -PT STATES SHE HAS #6 AT HOME Last Documented On 3 10:26AM ; [facility] Pill Count: 27 TYLENOL #3 Last Documented On 3 9:19AM ; [facility] Pill Count: 27 TYLENOL #3 Last Documented On 3 8:56AM ; [facility] Pill Count: 13 TYLENOL #3, S TOPPED TAKING ON 07/05/22, PT WAS GIVEN RX FOR HYDROCOODNE FOR AMPUTATION OF RIGHT MIDDLE DIGIT TOE FOR BONE INFECTION Last Documented On 3 11:04AM ; [facility] Pill Count: one Acetaminophe n Codeine: Appropriate Last Documented On 3 1:26PM ; [facility] Pill Count: TYLENOL #3 Last Documented On 2 3:14PM ; [facility] Pill Count: Patient did not bring pain medication to appointment for pill count, per policy. Advised in order to continue to safely prescribe opioids, medication must be brought to each appointment. PT STATES SHE HAS #16 PILLS AT HOME Last Documented On 2 3:14PM ; [facility] Pill Count: 25 TYLENOL #3 Last Documented On 2 2:12PM ; [facility] Pill Count: 0 TYLENOL #3 Last Documented On 2 4:22PM ; [facility] Pill Count: TYLENOL #3 Last Documented On 2 9:55AM ; [facility] Pill Count: Patient did not bring pain medication to appointment for pill count, per policy. Advised in order to continue to safely prescribe opioids, medication must be brought to each appointment. PT STATES SHE ONLY HAD #2 LEFT Last Documented On 2 9:55AM ; [facility] Pill Count: four TYLENOL #3 Last Documented On 2 1:39PM ; [facility] Pill Count: Patient did not bring pain medication to appointment for pill count, per policy. Advised in order to continue to safely prescribe opioids, medication must be brought to each appointment Last Documented On 2 1:39PM ; [facility] Assessments Includes: Assessments for all patient encounters Findings Encounter Date Bulging lumbar disc PAIN MANAGEMENT FOLLOW UP wi th DENNISE L EUFEMIA [facility] 10/07/2023 Last Documented On 4 9:10AM ; [facility] Chronic pain syndrome PAIN MANAGEMENT FO LLOW UP with DENNISE L EUFEMIA ANP-BC 10/07/2023 Last Documented On 4 9:10AM ; [facility] Diabetic polyneuropathy PAIN MANAGEMENT FOLLOW UP with DENNISE L EUFEMIA ANP-BC 10/07/2023 Last Documented On 4 9:10AM ; [facility] use of opiate analgesic PAIN M ANAGEMENT FOLLOW UP with DENNISE L EUFEMIA ANP- 10/07/2023 Last Documented On 4 9:10AM ; [facility] Lumbar spondylosis with radiculopathy PA IN MANAGEMENT FOLLOW UP with DENNISE L EUFEMIA ANP-BC 10/07/2023 Last Documented On 4 9:10AM ; [facility] Lumbar stenosis with neuroge lenin claudication PAIN MANAGEMENT FOLLOW UP with DENNISE L EUFEMIA ANP-BC 10/07/2023 Last Documented On 4 9:10AM ; [facility] Myalgia PAIN MANAGEMENT FOLLOW UP with T GREGORY L EUFEMIA ANP-BC 10/07/2023 Last Documented On 4 9:10AM ; [facility] Bulging lumbar disc PAIN MANAGEMENT FOLLOW UP wi th DENNISE L EUFEMIA ANP- 03/27/2023 Last Documented On 3 10:20AM ; [facility] Chronic pain syndrome PAIN MANAGEMENT FO LLOW UP with DENNISE L EUFEMIA ANP-BC 03/27/2023 Last Documented On 3 10:20AM ; [facility] Diabetic polyneuropathy PAIN MANAGEMENT FOLLOW UP with DENNISE L EUFEMIA ANP-BC 03/27/2023 Last Documented On 3 10:20AM ; [facility] 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 PAIN M ANAGEMENT FOLLOW UP with DENNISE L EUFEMIA ANP-BC 03/27/2023 Last Documented On 3 10:20AM ; [facility] Lumbar spondylosis with radiculopathy PA IN MANAGEMENT FOLLOW UP with DENNISE L EUFEMIA ANP-BC 03/27/2023 Last Documented On 3 10:20AM ; [facility] Lumbar stenosis with neuroge lenin claudication PAIN MANAGEMENT FOLLOW UP with DENNISE L EUFEMIA ANP-BC 03/27/2023 Last Documented On 3 10:20AM ; [facility] Myalgia PAIN MANAGEMENT FOLLOW UP with T GREGORY L EUFEMIA ANP-BC 03/27/2023 Last Documented On 3 10:20AM ; [facility] Bulging lumbar disc PAIN MANAGEMENT FOLLOW UP wi th DENNISE L EUFEMIA ANP-BC 12/30/2022 Last Documented On 3 12:49PM ; [facility] Cervical radiculopathy PAIN MANAGEMENT F OLLOW UP with DENNISE L EUFEMIA ANP-BC 12/30/2022 Last Documented On 3 12:49PM ; [facility] Cervical spondylosis with radiculopathy PAIN MANAGEMENT FOLLOW UP with DENNISE L EUFEMIA ANP-BC 12/30/2022 Last Documented On 3 12:49PM ; [facility] Chronic pain syndrome PAIN MANAGEMENT FO LLOW UP with DENNISE L EUFEMIA ANP-BC 12/30/2022 Last Documented On 3 12:49PM ; [facility] Diabetic polyneuropathy PAIN MANAGEMENT FOLLOW UP with DENNISE L EUFEMIA ANP-BC 12/30/2022 Last Documented On 3 12:49PM ; [facility] use of opiate analgesic PAIN M ANAGEMENT FOLLOW UP with DENNISE L EUFEMIA ANP-BC 12/30/2022 Last Documented On 3 12:49PM ; [facility] Lumbar spondylosis with radiculopathy PA IN MANAGEMENT FOLLOW UP with DENNISE L EUFEMIA ANP-BC 12/30/2022 Last Documented On 3 12:49PM ; [facility] Lumbar stenosis with neuroge lenin claudication PAIN MANAGEMENT FOLLOW UP with DENNISE L EUFEMIA ANP-BC 12/30/2022 Last Documented On 3 12:49PM ; [facility] Myalgia PAIN MANAGEMENT FOLLOW UP with T GREGORY L EUFEMIA ANP-BC 12/30/2022 Last Documented On 3 12:49PM ; [facility] Bulging lumbar disc PAIN MANAGEMENT FOLLOW UP wi th DENNISE L EUFEMIA ANP-BC 10/31/2022 Last Documented On 3 9:56AM ; [facility] Cervical radiculopathy PAIN MANAGEMENT F OLLOW UP with DENNISE L EUFEMIA ANP-BC 10/31/2022 Last Documented On 3 9:56AM ; [facility] Cervical spondylosis with radiculopathy PAIN MANAGEMENT FOLLOW UP with DENNSIE L EUFEMIA ANP-BC 10/31/2022 Last Documented On 3 9:56AM ; [facility] Chronic pain syndrome PAIN MANAGEMENT FO LLOW UP with DENNISE L EUFEMIA ANP-BC 10/31/2022 Last Documented On 3 9:56AM ; [facility] Diabetic polyneuropathy PAIN MANAGEMENT FOLLOW UP with DENNISE L EUFEMIA ANP-BC 10/31/2022 Last Documented On 3 9:56AM ; [facility] use of opiate analgesic PAIN M ANAGEMENT FOLLOW UP with DENNISE L EUFEMIA ANP-BC 10/31/2022 Last Documented On 3 9:56AM ; [facility] Lumbar spondylosis with radiculopathy PA IN MANAGEMENT FOLLOW UP with DENNISE L EUFEMIA ANP-BC 10/31/2022 Last Documented On 3 9:56AM ; [facility] Lumbar stenosis with neuroge lenin claudication PAIN MANAGEMENT FOLLOW UP with DENNISE L EUFEMIA ANP-BC 10/31/2022 Last Documented On 3 9:56AM ; [facility] Myalgia PAIN MANAGEMENT FOLLOW UP with T GREGORY L EUFEMIA ANP-BC 10/31/2022 Last Documented On 3 9:56AM ; [facility] Bulging lumbar disc PAIN MANAGEMENT FOLLOW UP wi th DENNISE L EUFEMIA ANP-BC 09/03/2022 Last Documented On 3 5:37PM ; [facility] Cervical radiculopathy PAIN MANAGEMENT F OLLOW UP with DENNISE L EUFEMIA ANP-BC 09/03/2022 Last Documented On 3 5:37PM ; [facility] Cervical spondylosis with radiculopathy PAIN MANAGEMENT FOLLOW UP with DENNISE L EUFEMIA ANP-BC 09/03/2022 Last Documented On 3 5:37PM ; [facility] Chronic pain syndrome PAIN MANAGEMENT FO LLOW UP with DENNISE L EUFEMIA ANP-BC 09/03/2022 Last Documented On 3 5:37PM ; [facility] Diabetic polyneuropathy PAIN MANAGEMENT FOLLOW UP with DENNISE L EUFEMIA ANP-BC 09/03/2022 Last Documented On 3 5:37PM ; [facility] use of opiate analgesic PAIN M ANAGEMENT FOLLOW UP with DENNISE L EUFEMIA ANP-BC 09/03/2022 Last Documented On 3 5:37PM ; [facility] Lumbar spondylosis with radiculopathy PA IN MANAGEMENT FOLLOW UP with DENNISE L EUFEMIA ANP-BC 09/03/2022 Last Documented On 3 5:37PM ; [facility] Lumbar stenosis with neuroge lenin claudication PAIN MANAGEMENT FOLLOW UP with DENNISE L EUFEMIA ANP-BC 09/03/2022 Last Documented On 3 5:37PM ; [facility] Myalgia PAIN MANAGEMENT FOLLOW UP with T GREGORY L EUFEMIA ANP-BC 09/03/2022 Last Documented On 3 5:37PM ; [facility] Bulging lumbar disc PAIN MANAGEMENT FOLLOW UP wi th DENNISE L EUFEMIA ANP-BC 07/26/2022 Last Documented On 3 11:48AM ; [facility] Cervical radiculopathy PAIN MANAGEMENT F OLLOW UP with DENNISE L EUFEMIA ANP-BC 07/26/2022 Last Documented On 3 11:48AM ; [facility] Cervical spondylosis with radiculopathy PAIN MANAGEMENT FOLLOW UP with DENNISE L EUFEMIA ANP-BC 07/26/2022 Last Documented On 3 11:48AM ; [facility] Chronic pain syndrome PAIN MANAGEMENT FO LLOW UP with DENNISE L EUFEMIA ANP-BC 07/26/2022 Last Documented On 3 11:48AM ; [facility] Diabetic polyneuropathy PAIN MANAGEMENT FOLLOW UP with DENNISE L EUFEMIA ANP-BC 07/26/2022 Last Documented On 3 11:48AM ; [facility] 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 PAIN M ANAGEMENT FOLLOW UP with DENNISE L EUFEMIA [facility] 07/26/2022 Last Documented On 3 11:48AM ; [facility] Lumbar spondylosis with radiculopathy PA IN MANAGEMENT FOLLOW UP with DENNISE L EUFEMIA ANP-BC 07/26/2022 Last Documented On 3 11:48AM ; [facility] Lumbar stenosis with neuroge lenin claudication PAIN MANAGEMENT FOLLOW UP with DENNISE L EUFEMIA ANP-BC 07/26/2022 Last Documented On 3 11:48AM ; [facility] Myalgia PAIN MANAGEMENT FOLLOW UP with T GREGORY Vita EUFEMIA [facility]-BC 07/26/2022 Last Documented On 3 11:48AM ; [facility] Bulging lumbar disc PAIN MANAGEMENT FOLL OW UP with JANAE HENNING [facility]- 05/23/2022 Last Documented On 3 1:28PM ; [facility] Cervicalgia PAIN MANAGEMENT FOLLOW UP with Ofelia BIRD CURER ACID DRUM-FPBenjamin, [facility]-BC 05/23/2022 Last Documented On 3 1:28PM ; [facility] Chronic pain syndrome PAIN MANAGEMENT FO LLOW UP with JANAE Lynn PELON CURER ACID DRUM-FPA, B[employer]BALL [employer]ER-BC 05/23/2022 Last Documented On 3 1:28PM ; [facility] Diabetic polyneuropathy PAIN MANAGEMENT FOLLOW UP with JANAE Lynn PELON CURER ACID DRUM-FPA, BASKETBALL PLAYER-BC 05/23/2022 Last Documented On 3 1:28PM ; [facility] 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 PAIN M ANAGEMENT FOLLOW UP with JANAE Lynn PELON CURER ACID DRUM-FPA, BASKETBALL PLAYER-BC 05/23/2022 Last Documented On 3 1:28PM ; [facility] Lumbar spondylosis with radiculopathy PA IN MANAGEMENT FOLLOW UP with JANAE Lynn PELON CURER ACID DRUM-FPA, BASKETBALL PLAYER-BC 05/23/2022 Last Documented On 3 1:28PM ; [facility] Lumbar stenosis with neuroge lenin claudication PAIN MANAGEMENT FOLLOW UP with JANAE Lynn PELON CURER ACID DRUM-FPA, BASKETBALL PLAYER-BC 05/23/2022 Last Documented On 3 1:28PM ; [facility] Myalgia PAIN MANAGEMENT FOLLOW UP with Ofelia Lynn PELON CURER ACID DRUM-FPA, BASKETBALL PLAYER-BC 05/23/2022 Last Documented On 3 1:28PM ; [facility] Bulging lumbar disc PAIN MANAGEMENT FOLLOW UP wi th DENNISE L EUFEMIA ANP-BC 03/14/2022 Last Documented On 2 3:37PM ; [facility] Chronic pain syndrome PAIN MANAGEMENT FO LLOW UP with DENNISE L EUFEMIA ANP-BC 03/14/2022 Last Documented On 2 3:37PM ; [facility] Diabetic polyneuropathy PAIN MANAGEMENT FOLLOW UP with DENNISE L EUFEMIA ANP-BC 03/14/2022 Last Documented On 2 3:37PM ; [facility] use of opiate analgesic PAIN M ANAGEMENT FOLLOW UP with DENNISE L EUFEMIA ANP-BC 03/14/2022 Last Documented On 2 3:37PM ; [facility] Lumbar spondylosis with radiculopathy PA IN MANAGEMENT FOLLOW UP with DENNISE L EUFEMIA ANP-BC 03/14/2022 Last Documented On 2 3:37PM ; [facility] Lumbar stenosis with neuroge lenin claudication PAIN MANAGEMENT FOLLOW UP with DENNISE L EUFEMIA ANP-BC 03/14/2022 Last Documented On 2 3:37PM ; [facility] Myalgia PAIN MANAGEMENT FOLLOW UP with T GREGORY L EUFEMIA ANP-BC 03/14/2022 Last Documented On 2 3:37PM ; [facility] Bulging lumbar disc PAIN MANAGEMENT FOLLOW UP wi th DENNISE L EUFEMIA ANP-BC 12/24/2021 Last Documented On 2 3:03PM ; [facility] Chronic pain syndrome PAIN MANAGEMENT FO LLOW UP with DENNISE L EUFEMIA ANP-BC 12/24/2021 Last Documented On 2 3:03PM ; [facility] Diabetic polyneuropathy PAIN MANAGEMENT FOLLOW UP with DENNISE L EUFEMIA ANP-BC 12/24/2021 Last Documented On 2 3:03PM ; [facility] 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 PAIN M ANAGEMENT FOLLOW UP with DENNISE L EUFEMIA ANP-BC 12/24/2021 Last Documented On 2 3:03PM ; [facility] Lumbar spondylosis with radiculopathy PA IN MANAGEMENT FOLLOW UP with DENNISE L EUFEMIA ANP-BC 12/24/2021 Last Documented On 2 3:03PM ; [facility] Lumbar stenosis with neuroge lenin claudication PAIN MANAGEMENT FOLLOW UP with DENNISE L EUFEMIA ANP-BC 12/24/2021 Last Documented On 2 3:03PM ; [facility] Myalgia PAIN MANAGEMENT FOLLOW UP with T GREGORY L EUFEMIA ANP-BC 12/24/2021 Last Documented On 2 3:03PM ; [facility] Chronic pain syndrome PAIN MANAGEMENT FO LLOW UP with DENNISE L EUFEMIA ANP-BC 11/05/2021 Last Documented On 2 5:36PM ; [facility] Diabetic polyneuropathy PAIN MANAGEMENT FOLLOW UP with DENNISE L EUFEMIA ANP-BC 11/05/2021 Last Documented On 2 5:36PM ; [facility] DORSALGIA PAIN MANAGEMENT FOLLOW UP with T GREGORY L EFUEMIA ANPBC 11/05/2021 Last Documented On 2 5:36PM ; [facility] use of opiate analgesic PAIN M ANAGEMENT FOLLOW UP with DENNISE L EUFEMIA [facility] 11/05/2021 Last Documented On 2 5:36PM ; [facility] Lumbar spondylosis with radiculopathy PA IN MANAGEMENT FOLLOW UP with DENNISE L EUFEMIA [facility] 11/05/2021 Last Documented On 2 5:36PM ; [facility] Myalgia PAIN MANAGEMENT FOLLOW UP with T GREGORY L EUFEMIA ANPBC 11/05/2021 Last Documented On 2 5:36PM ; [facility] Chronic pain syndrome PAIN MANAGEMENT FO LLOW UP with DENNISE L EUFEMIA [facility] 09/20/2021 Last Documented On 2 11:46AM ; [facility] Diabetic polyneuropathy PAIN MANAGEMENT FOLLOW UP with DENNISE L EUFEMIA [facility] 09/20/2021 Last Documented On 2 11:46AM ; [facility] DORSALGIA PAIN MANAGEMENT FOLLOW UP with T GREGORY L EUFEMIA [facility] 09/20/2021 Last Documented On 2 11:46AM ; [facility] M[facility] use of opiate analgesic PAIN M ANAGEMENT FOLLOW UP with DENNISE L EUFEMIA [facility] 09/20/2021 Last Documented On 2 11:46AM ; [facility] Lumbar spondylosis without m yelopathy or radiculopathy PAIN MANAGEMENT FOLLOW UP with DENNISE L EUFEMIA ANP- 09/20/2021 Last Documented On 2 11:46AM ; [facility] Myalgia PAIN MANAGEMENT FOLLOW UP with T GREGORY L EUFEMIA ANP-BC 09/20/2021 Last Documented On 2 11:46AM ; [facility] Chronic pain syndrome PAIN MANAGEMENT NE W CONSULT with DENNISE L EUFEMIA [facility] 08/21/2021 Last Documented On 2 4:35PM ; [facility] Diabetic polyneuropathy PAIN MANAGEMENT NEW CONSULT with DENNISE ANTHONY [facility] 08/21/2021 Last Documented On 2 4:35PM ; [facility] DORSALGIA PAIN MANAGEMENT NEW CONSULT with DENNISE ANTHONY [facility] 08/21/2021 Last Documented On 2 4:35PM ; [facility] 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 PAIN M ANAGEMENT NEW CONSULT with DENNISE ANTHONY [facility] 08/21/2021 Last Documented On 2 4:35PM ; [facility] Myalgia PAIN MANAGEMENT NEW CONSULT with DENNISECHER ANTHONY [facility] 08/21/2021 Last Documented On 2 4:35PM ; [facility] Instructions Includes: Instructions for all patient encounters Education and Decision Aids were provided during visit for: Pill Count: seven TYLENOL #3 Last Documented On 4 1:36PM ; [facility] Pill Count: three TYLENOL #3 Last Documented On 3 9:55AM ; [facility] Pill Count: three TYLENOL #3 -PT STATES SHE HAS #6 AT HOME Last Documented On 3 10:26AM ; [facility] Pill Count: 27 TYLENOL #3 Last Documented On 3 9:19AM ; [facility] Pill Count: 27 TYLENOL #3 Last Documented On 3 8:56AM ; [facility] Pill Count: 13 TYLENOL #3, S TOPPED TAKING ON 07/05/22, PT WAS GIVEN RX FOR HYDROCOODNE FOR AMPUTATION OF RIGHT MIDDLE DIGIT TOE FOR BONE INFECTION Last Documented On 3 11:04AM ; [facility] Pill Count: one Acetaminophe n Codeine: Appropriate Last Documented On 3 1:26PM ; [facility] Pill Count: TYLENOL #3 Last Documented On 2 3:14PM ; [facility] Pill Count: Patient did not bring pain medication to appointment for pill count, per policy. Advised in order to continue to safely prescribe opioids, medication must be brought to each appointment. PT STATES SHE HAS #16 PILLS AT HOME Last Documented On 2 3:14PM ; [facility] Pill Count: 25 TYLENOL #3 Last Documented On 2 2:12PM ; [facility] Pill Count: 0 TYLENOL #3 Last Documented On 2 4:22PM ; [facility] Pill Count: TYLENOL #3 Last Documented On 2 9:55AM ; [facility] Pill Count: Patient did not bring pain medication to appointment for pill count, per policy. Advised in order to continue to safely prescribe opioids, medication must be brought to each appointment. PT STATES SHE ONLY HAD #2 LEFT Last Documented On 2 9:55AM ; [facility] Pill Count: four TYLENOL #3 Last Documented On 2 1:39PM ; [facility] Pill Count: Patient did not bring pain medication to appointment for pill count, per policy. Advised in order to continue to safely prescribe opioids, medication must be brought to each appointment Last Documented On 2 1:39PM ; [facility] Medical Equipment - Implanted Devices Includes: Current and historical Devices No Medical Equipment Recorded Medications Includes: Current and historical Medications Current Medications (continue as prescribed) Linzess 145 MCG Oral Capsule 11/03/2023 Provider: ISIDORO SCHMIDT Diagnosis: Constipation, un specified TAKE 1 CAPSULE BY MOUTH DAILY Last Documented On 4 1:40PM By JANAE CHAUDHRY ; [facility] tiZANidine HCl 2 MG Oral Tablet 10/24/2023 Provider: ISIDORO PEPPER Diagnosis: TAKE 1 TABLET BY MOUTH 2 TO 3 TIMES PER DAY NEEDED Last Documented On 4 10:26AM By JANAE CHAUDHRY ; [facility] Acetaminophen-Codeine 300-30 MG Oral Tablet 10/08/2023 Provider: DENNISE GRIMES Diagnosis: Spinal stenosis, lumbar region with neurogenic claudication 1 po bid prn/ max 2 per day Last Documented On 4 9:26AM By DENNISE GRIMES ; [facility] Ozempic (0.25 or 0.5 MG/DOSE ) 2 MG/3ML Subcutaneous Solution Pen-injector 10/02/2023 Provider: Diagnosis: Last Documented On 10/07/2023 1:34PM By Laura RIVERA ; [facility] Ubrelvy 100 MG Oral Tablet 09/18/2023 Provider: Diagnosis: Last Documented On 10/07/2023 1:35PM By Laura RIVERA ; [facility] Qulipta 60 MG Oral Tablet 09/11/2023 Provider: Diagnosis: Last Documented On 10/07/2023 1:34PM By Laura RIVERA ; [facility] tiZANidine HCl 2 MG Oral Tablet 08/13/2023 Provider: JANAE CALIBenjamin [facility] Diagnosis: TAKE 1 TABLET BY MOUTH 2 TO 3 TIMES PER DAY NEEDED Last Documented On 4 12:03PM By JANAE BIRD [facility] ; [facility] Gentamicin Sulfate 0.1% External Ointment 07/11/2023 Provider: JW MARIN DPM Diagnosis: Last Documented On 10/07/2023 1:33PM By Laura RIVERA ; [facility] Gabapentin 600 MG Oral Tablet 06/23/2023 Provider: DENNISE HERNANDEZ 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 TAKE 1 TABLET BY MOUTH THREE TIMES DAILY Last Documented On 4 8:40AM By [facility] DULoxetine HCl 60 MG Oral Capsule Delayed Release Particles 06/23/2023 Provider: DENNISE Barnes Diagnosis: Chronic pain syn drome TAKE 1 CAPSULE BY MOUTH DAILY Last Documented On 4 8:40AM By [facility] ; [facility] Santyl 250 UNIT/GM External Ointment 06/06/2023 Prov ider: JW MARIN DPM Diagnosis: Last Documented On 10/07/2023 1:34PM By Laura RIVERA ; [facility] Bumetanide 1 MG Oral Tablet 09/13/2022 Provider: Diagnosis: Last Documented On 3 10:28AM By Laura RIVERA ; [facility] Kerendia 20 MG Oral Tablet 03/03/2022 Provider: Diagnosis: Last Documented On 03/14/2022 3:11PM By Laura RIVERA ; [facility] Brilinta 90 MG Oral Tablet 02/19/2022 Provider: Diagnosis: Last Documented On 03/14/2022 3:12PM By Laura RIVERA ; [facility] Carvedilol 6.25 MG Oral Tablet 01/26/2022 Provider: Diagnosis: Last Documented On 03/14/2022 3:06PM By Laura RIVERA ; [facility] Entresto 24-26 MG Oral Tablet 01/25/2022 Provider: Diagnosis: Last Documented On 03/14/2022 3:13PM By Laura RIVERA ; [facility] Jardiance 25 MG Oral Tablet 09/03/2021 Provider: Diagnosis: Last Documented On 09/20/2021 9:45AM By Laura RIVERA ; [facility] Aspirin 81 MG Oral Capsule 08/21/2021 Provider: Diagnosis: Last Documented On 08/21/2021 1:34PM By Laura RIVERA ; [facility] Nitroglycerin 0.4 MG Sublingual Tablet Sublingual 09/2021 Provider: Diagnosis: Last Documented On 08/21/2021 1:36PM By Laura RIVERA ; [facility] metFORMIN HCl 1000 MG Oral Tablet 08/20/2021 Provide r: CAMPOS WHEELER MD Diagnosis: Last Documented On 08/21/2021 1:30PM By Laura RIVERA ; [facility] Levothyroxine Sodium 100 MCG Oral Tablet 08/20/2021 Provider: CAMPOS WHEELER MD Diagnosis: Last Documented On 08/21/2021 1:30PM By Laura RIVERA ; [facility] Topiramate 25 MG Oral Tablet 2021 Provider: Diagnosis: Last Documented On 08/21/2021 1:31PM By Laura RIVERA ; [facility] Atorvastatin Calcium 40 MG Oral Tablet 08/09/2021 Pr ovider: CAMPOS WHEELER MD Diagnosis: Last Documented On 08/21/2021 1:31PM By Laura RIVERA ; [facility] Past Medications on file Linzess 145 MCG Oral Capsule 10/03/2023 - 10/07/2023 Provider: DENNISE GRIMES Diagnosis: Last Documented On 10/07/2023 1:35PM By Laura RIVERA ; [facility] Linzess 145 MCG Oral Capsule 08/06/2023 - 11/03/2023 Provider: DENNISE GRIMES Diagnosis: Constipation, unspecified TAKE 1 CAPSULE BY MOUTH DAILY Last Documented On 4 1:25PM By JANAE BIRD [facility] ; [facility] Acetaminophen-Codeine 300-30 MG Oral Tablet 07/21/2023 - 10/07/2023 Provider: DENNISE GRIMES Diagnosis: Spinal stenosis, lumbar region with neurogenic claudication 1 po bid prn/ max 2 per day Last Documented On 4 9:09AM By DENNISE GRIMES ; [facility] tiZANidine HCl 2 MG Oral Tablet 07/21/2023 - 08/13/2023 Provider: DENNISE GRIMES Diagnosis: 1 po 2-3 times per day prn Last Documented On 4 11:48AM By JANAE BIRD [facility] ; [facility] Acetaminophen-Codeine 300-30 MG Oral Tablet 06/12/2023 - 07/18/2023 Provider: DENNISE GRIMES Diagnosis: Spinal stenosis, lumbar region with neurogenic claudication 1 po bid prn/ max 2 per day Last Documented On 4 10:00AM By DENNISE HERNANDEZ ; [facility] Gabapentin 600 MG Oral Tablet 05/22/2023 - 06/23/2023 Provider: DENNISE GRIMES 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 TAKE 1 TABLET BY MOUTH THREE TIMES DAILY Last Documented On 4 8:32AM By DENNISE GRIMES ; [facility] Linzess 145 MCG Oral Capsule 05/15/2023 - 08/06/2023 Provider: DENNISE GRIMES Diagnosis: Constipation, unspecified TAKE 1 CAPSULE BY MOUTH DAILY Last Documented On 4 4:47PM By DENNISE GRIMES ; [facility] Gabapentin 600 MG Oral Tablet 04/21/2023 - 05/22/2023 Provider: DENNISE GRIMES 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 TAKE 1 TABLET BY MOUTH THREE TIMES DAILY Last Documented On 4 1:32PM By DENNISE GRIMES ; [facility] Linzess 145 MCG Oral Capsule 04/13/2023 - 05/15/2023 Provider: DENNISE GRIMES Diagnosis: Constipation, unspecified TAKE 1 CAPSULE BY MOUTH DAILY Last Documented On 3 2:32PM By DENNISE GRIMES ; [facility] Acetaminophen-Codeine 300-30 MG Oral Tablet 03/27/2023 - 06/12/2023 Provider: DENNISE GRIMES Diagnosis: Spinal stenosis, lumbar region with neurogenic claudication 1 po bid prn/ max 2 per day Last Documented On 4 4:06PM By DENNISE GRIMES ; [facility] DULoxetine HCl 60 MG Oral Capsule Delayed Release Particles 03/25/2023 - 06/23/2023 Provider: DENNISE GRIMES Diagnosis: Chronic pain syn drome TAKE 1 CAPSULE BY MOUTH DAILY Last Documented On 4 8:32AM By DENNISE GRIMES ; [facility] Gabapentin 600 MG Oral Tablet 03/25/2023 - 04/21/2023 Provider: DENNISE GRIMES 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 TAKE 1 TABLET BY MOUTH THREE TIMES DAILY Last Documented On 3 12:22PM By DENNISE GRIMES ; [facility] Linzess 145 MCG Oral Capsule 03/10/2023 - 04/13/2023 Provider: DENNISE GRIMES Diagnosis: Constipation, unspecified TAKE 1 CAPSULE BY MOUTH DAILY Last Documented On 3 6:43AM By DENNISE GRIMES ; [facility] Gabapentin 600 MG Oral Tablet 02/24/2023 - 03/25/2023 Provider: JANAE BIRD [facility] [employer] 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 TAKE 1 TABLET BY MOUTH THREE TIMES DAILY Last Documented On 3 4:13PM By DENNISE GRIMES ; [facility] Gabapentin 600 MG Oral Tablet 01/27/2023 - 02/24/2023 Provider: DENNISE GRIMES 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 TAKE 1 TABLET BY MOUTH THREE TIMES DAILY Last Documented On 3 11:53AM By JANAE NEAL-BC ; [facility] Acetaminophen-Codeine 300-30 MG Oral Tablet 01/13/2023 - 03/27/2023 Provider: DENNISE GRIMES Diagnosis: Spondylosis w/o myelopathy or radiculopathy, lumbar region 1 po bid prn/ max 2 per day Last Documented On 3 10:12AM By DENNISE GRIMES ; [facility] tiZANidine HCl 2 MG Oral Tablet 01/13/2023 - 07/21/2023 Provider: DENNISE GRIMES Diagnosis: 1 po 2-3 times per day prn Last Documented On 4 10:03AM By DENNISE GRIMES ; [facility] DULoxetine HCl 60 MG Oral Capsule Delayed Release Particles 12/30/2022 - 03/25/2023 Provider: DENNISE GRIMES Diagnosis: Chronic pain syn drome 1 capsule daily Last Documented On 3 4:13PM By DENNISE GRIMES ; [facility] DULoxetine HCl 30 MG Oral Capsule Delayed Release Particles 12/27/2022 - 03/27/2023 Provider: DENNISE GRIMES Diagnosis: Chronic pain syn drome TAKE 1 CAPSULE BY MOUTH AT BEDTIME Last Documented On 3 10:04AM By DENNISE GRIMES ; [facility] Gabapentin 600 MG Oral Tablet 12/27/2022 - 01/27/2023 Provider: DENNISE GRIMES Diagnosis: h diabetes lary litus with diabetic polyneuropathy TAKE 1 TABLET BY MOUTH THREE TIMES DAILY Last Documented On 3 10:34AM By DENNISE GRIMES ; [facility] Acetaminophen-Codeine 300-30 MG Oral Tablet 12/02/2022 - 01/13/2023 Provider: DENNISE GRIMES Diagnosis: Spondylosis w/o myelopathy or radiculopathy, lumbar region 1 po bid prn/ max 2 per day Last Documented On 3 3:44PM By DENNISE GRIMES ; [facility] DULoxetine HCl 30 MG Oral Capsule Delayed Release Particles 11/25/2022 - 12/27/2022 Provider: DENNISE GRIMES Diagnosis: Chronic pain syn drome TAKE 1 CAPSULE BY MOUTH AT BEDTIME Last Documented On 3 10:26PM By DENNISE GRIMES ; [facility] Linzess 145 MCG Oral Capsule 11/20/2022 - 03/10/2023 Provider: DENNISE GRIMES Diagnosis: Constipation, unspecified TAKE 1 CAPSULE BY MOUTH DAILY Last Documented On 3 3:57PM By DENNISE GRIMES ; [facility] DULoxetine HCl 30 MG Oral Capsule Delayed Release Particles 10/31/2022 - 11/25/2022 Provider: DENNISE GRIMES Diagnosis: Chronic pain syn drome One tablet at bed time Last Documented On 3 1:45PM By DENNISE GRIMES ; [facility] Linzess 145 MCG Oral Capsule 10/21/2022 - 11/20/2022 Provider: DENNISE GRIMES Diagnosis: Constipation, unspecified TAKE 1 CAPSULE BY MOUTH DAILY Last Documented On 3 8:44AM By DENNISE GRIMES ; [facility] Acetaminophen-Codeine #3 300-30 MG Oral Tablet 10/08/2022 - 12/30/2022 Provider: DENNISE GRIMES Diagnosis: Other spondylosi s with radiculopathy, lumbar region 1 po bid prn, max 2 per day Last Documented On 3 10:26AM By Laura RIVERA ; [facility] Gabapentin 600 MG Oral Tablet 09/25/2022 - 12/27/2022 Provider: DENNISE GRIMES 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 TAKE 1 TABLET BY MOUTH THREE TIMES DAILY Last Documented On 3 10:31PM By DENNISE GRIMES ; [facility] cefTRIAXone Sodium 2 GM Intr avenous Solution Reconstituted 09/03/2022 - 12/30/2022 Provider: Diagnosis: Last Documented On 3 10:28AM By Laura RIVERA ; [facility] Gabapentin 600 MG Oral Tablet 08/23/2022 - 09/25/2022 Provider: DENNISE GRIMES 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 TAKE 1 TABLET BY MOUTH THREE TIMES DAILY Last Documented On 3 12:49PM By DENNISE GRIMES ; [facility] Linzess 145 MCG Oral Capsule 08/21/2022 - 10/21/2022 Provider: DENNISE GRIMES Diagnosis: Constipation, unspecified TAKE 1 CAPSULE BY MOUTH DAILY Last Documented On 3 1:23PM By DENNISE GRIMES ; [facility] Acetaminophen-Codeine #3 300-30 MG Oral Tablet 08/13/2022 - 10/07/2022 Provider: DENNISE GRIMES Diagnosis: Other spondylosi s with radiculopathy, lumbar region 1 po bid prn, max 2 per day Last Documented On 3 5:42PM By DENNISE GRIMES ; [facility] Gabapentin 600 MG Oral Tablet 07/25/2022 - 08/23/2022 Provider: DENNISE GRIMES 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 TAKE 1 TABLET BY MOUTH THREE TIMES DAILY Last Documented On 3 3:59PM By DENNISE GRIMES ; [facility] HYDROcodone-Acetaminophen 5-325 MG Oral Tablet 0 07/05/2022 - 10/31/2022 Provider: Diagnosis: Last Documented On 3 9:31AM By DENNISE GRIMES ; [facility] Linzess 145 MCG Oral Capsule 06/11/2022 - 08/21/2022 Provider: ISIDORO PEPPER Diagnosis: Constipation, unspecified TAKE 1 CAPSULE BY MOUTH DAILY Last Documented On 3 9:26AM By DENNISE GRIMES ; [facility] Acetaminophen-Codeine #3 300-30 MG Oral Tablet 05/23/2022 - 08/13/2022 Provider: ISIDORO PEPPER Diagnosis: Other spondylosi s with radiculopathy, lumbar region 1 po bid prn Last Documented On 3 4:03PM By DENNISE GRIMES ; [facility] Gabapentin 600 MG Oral Tablet 05/23/2022 - 07/25/2022 Provider: ISIDORO PEPPER 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 TAKE 1 TABLET BY MOUTH THREE TIMES DAILY Last Documented On 3 8:41AM By DENNISE GRIMES ; [facility] Bumetanide 1 MG Oral Tablet 05/23/2022 - 06/22/2022 Pr ovider: Diagnosis: Last Documented On 3 10:20AM By JANAE CHAUDHRY ; [facility] Gabapentin 600 MG Oral Tablet 04/30/2022 - 05/23/2022 Provider: DENNISE GRIMES 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 TAKE 1 TABLET BY MOUTH THREE TIMES DAILY Last Documented On 3 10:42AM By JANAE CHAUDHRY ; [facility] Acetaminophen-Codeine #3 300 -30 MG Oral Tablet 03/26/2022 - 05/23/2022 Provider: DENNISE GRIMES Diagnosis: 1 po bid prn Last Documented On 3 10:42AM By JANAE CHAUDHRY ; [facility] Linzess 145 MCG Oral Capsule 03/19/2022 - 06/11/2022 Provider: DENNISE GRIMES Diagnosis: Constipation, unspecified TAKE 1 CAPSULE BY MOUTH DAILY Last Documented On 3 2:03PM By JANAE BIRD [facility] ; [facility] Dexcom G6 Sensor Miscellaneous 03/09/2022 - 12/30/2022 Provider: Diagnosis: Last Documented On 3 10:29AM By Laura RIVERA ; [facility] Bumetanide 1 MG Oral Tablet 03/07/2022 - 05/23/2022 Pr ovider: Diagnosis: Last Documented On 3 10:20AM By JANAE BIRD [facility] ; [facility] Acetaminophen-Codeine #3 300 -30 MG Oral Tablet 02/22/2022 - 03/25/2022 Provider: DENNISE GRIMES Diagnosis: One tablet twice a day Last Documented On 2 10:39AM By DENNISE GRIMES ; [facility] Linzess 145 MCG Oral Capsule 02/19/2022 - 03/19/2022 Provider: DENNISE GRIMES Diagnosis: Constipation, unspecified TAKE 1 CAPSULE BY MOUTH DAILY Last Documented On 2 12:10PM By DENNISE GRIMES ; [facility] Pantoprazole Sodium 40 MG Or al Tablet Delayed Release 02/15/2022 - 12/30/2022 Provider: CAMPOS WHEELER MD Diagnosis: Last Documented On 3 10:29AM By Laura RIVERA ; [facility] Acetaminophen-Codeine #3 300 -30 MG Oral Tablet 01/22/2022 - 02/21/2022 Provider: DENNISE GRIMES Diagnosis: One tablet twice a day Last Documented On 2 8:24AM By DENNISE GRIMES ; [facility] Gabapentin 600 MG Oral Tablet 01/10/2022 - 04/30/2022 Provider: DENNISE GRIMES 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 TAKE 1 TABLET BY MOUTH THREE TIMES DAILY Last Documented On 2 12:44PM By DENNISE GRIMES ; [facility] Acetaminophen-Codeine #3 300-30 MG Oral Tablet 12/17/2021 - 05/23/2022 Provider: DENNISE GRIMES Diagnosis: Spondylosis w/o myelopathy or radiculopathy, lumbar region 1 po qhs prn Last Documented On 3 10:17AM By JANAE BIRD [facility]- ; [facility] Linzess 145 MCG Oral Capsule 11/12/2021 - 02/19/2022 Provider: DENNISE GRIMES Diagnosis: Constipation, unspecified TAKE 1 CAPSULE BY MOUTH DAILY Last Documented On 2 5:09PM By DENNISE GRIMES ; [facility] Acetaminophen-Codeine #3 300-30 MG Oral Tablet 11/05/2021 - 12/17/2021 Provider: DENNISE GRIMES Diagnosis: Spondylosis w/o myelopathy or radiculopathy, lumbar region 1 po qhs prn Last Documented On 2 11:59AM By DENNISE GRIMES ; [facility] Gabapentin 600 MG Oral Tablet 10/17/2021 - 01/10/2022 Provider: DENNISE GRIMES 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 TAKE 1 TABLET BY MOUTH THREE TIMES DAILY Last Documented On 2 3:24PM By DENNISE GRIMES ; [facility] Linzess 145 MCG Oral Capsule 10/17/2021 - 11/12/2021 Provider: DENNISE GRIMES Diagnosis: Constipation, unspecified TAKE 1 CAPSULE BY MOUTH DAILY Last Documented On 2 8:59AM By DENNISE GRIMES ; [facility] Acetaminophen-Codeine #3 300 -30 MG Oral Tablet 10/12/2021 - 11/05/2021 Provider: DENNISE GRIMES Diagnosis: 1 po qhs prn Last Documented On 2 5:34PM By DENNISE GRIMES ; [facility] Gabapentin 600 MG Oral Tablet 09/20/2021 - 12/24/2021 Provider: DENNISE GRIMES 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 One tablet three times a day Last Documented On 12/24/2021 2:06PM By Laura RIVERA ; [facility] Linzess 145 MCG Oral Capsule 09/20/2021 - 10/17/2021 Provider: DENNISE GRIMES Diagnosis: Constipation, unspecified 1 capsule daily Last Documented On 2 1:42PM By DENNISE GRIMES ; [facility] Acetaminophen-Codeine #3 300 -30 MG Oral Tablet 09/20/2021 - 10/11/2021 Provider: DENNISE GRIMES Diagnosis: 1 po qhs prn Last Documented On 2 8:22AM By DENNISE GRIMES ; [facility] Rvwcifvwfj-[id number] 50- 325-40 MG Oral Tablet 09/13/2021 - 03/14/2022 Provider: CAMPOS WHEELER MD Diagnosis: 1 TABLET PO BID PRN Last Documented On 03/14/2022 3:07PM By Laura RIVERA ; [facility] Acetaminophen-Codeine #3 300 -30 MG Oral Tablet 09/04/2021 - 09/20/2021 Provider: DENNISE GRIMES Diagnosis: 1 po qhs prn Last Documented On 2 10:07AM By DENNISE GRIMES ; [facility] Ozempic (0.25 or 0.5 MG/DOSE ) 2 MG/1.5ML Subcutaneous Solution Pen-injector 09/03/2021 - 03/14/2022 Provider: Diagnosis: Last Documented On 03/14/2022 3:07PM By Laura RIVERA ; [facility] tiZANidine HCl 2 MG Oral Tablet 08/20/2021 - Provider: Diagnosis: Last Documented On 3 3:45PM By DENNISE GRIMES ; [facility] Gabapentin 300 MG Oral Capsule 08/20/2021 - 12/24/2021 Provider: CAMPOS WHEELER MD Diagnosis: Last Documented On 12/24/2021 2:07PM By Laura RIVERA ; [facility] Vascepa 1 GM Oral Capsule 08/20/2021 - 10/07/2023 Prov ider: Diagnosis: Last Documented On 10/07/2023 1:35PM By Laura RIVERA ; [facility] Nortriptyline HCl 50 MG Oral Capsule 08/01/2021 - 02/17 Provider: CAMPOS WHEELER MD Diagnosis: Last Documented On 03/14/2022 3:08PM By Laura RIVERA ; [facility] Clopidogrel Bisulfate 75 MG Oral Tablet 07/26/2021 - 1 Provider: Diagnosis: Last Documented On 03/14/2022 3:09PM By Laura RIVERA ; [facility] hydroCHLOROthiazide 25 MG Oral Tablet 07/26/2021 - Provider: Diagnosis: Last Documented On 03/14/2022 3:10PM By Laura RIVERA ; [facility] Acetaminophen-Codeine #3 300 -30 MG Oral Tablet 07/26/2021 - 01/22/2022 Provider: CAMPOS WHEELER MD Diagnosis: Last Documented On 1:47PM By DENNISE ANTHONY [facility] ; [facility] Metoprolol Succinate ER 100 MG Oral Tablet Extended Release 24 Hour 06/21/2021 - 03/14/2022 Provider: Diagnosis: Last Documented On 03/14/2022 3:09PM By Laura RIVERA ; [facility] Admelog 100 UNIT/ML Subcutan eous Solution 05/23/2021 - 03/14/2022 Provider: CAMPOS WHEELER MD Diagnosis: Last Documented On 03/14/2022 3:09PM By Laura RIVERA ; [facility] Lisinopril 10 MG Oral Tablet 03/27/2021 - 03/14/2022 Kirti stringerder: Diagnosis: Last Documented On 03/14/2022 3:09PM By Laura RIVERA ; [facility] Medications Administered Includes: Administered Medications in patient's chart No Administered Medications Recorded Vital Signs Includes: Vital Signs from 06/10/2023 through 06/10/2024 Vital Name 10/07/2023 01:28P Blood Pressure Sitting R 90/60 Pulse Rate-Sitting (bpm) 90 Temp-Temporal 97.3 Height (in) 65 Weight (lb) 126 Body Mass Index 21 Body Surface Area 1.6 Pain Level 7 Oxygen Saturation (%) 98 Last Documented: On 10/07/2023 1:32PM ; [facility] Results Includes: Results from 06/10/2023 through 06/10/2024 DRUG MONITORING, PANEL 6 WITH CONFIRMATI ON, URINE [employer] Ordered by DENNISE GRIMES on Collected: 10/07/2023 Reported: 10/09/19 24 23:08 Last Documented On 4 11:38AM ; [facility] Reviewed by DENNISE GRIMES on 10/28/2023; All test results are final unless otherwise noted. Amphetamines NEGATIVE ng/mL (<500) None Last Documented On 4 11:39PM ; [facility] Barbiturates NEGATIVE ng/mL (<300) None Last Documented On 4 11:39PM ; [facility] Benzodiazepines NEGATIVE ng/mL (<100) None Last Documented On 4 11:39PM ; [facility] Marijuana Metabolite NEGATIVE ng/mL (<20) None Last Documented On 4 11:39PM ; [facility] Cocaine Metabolite NEGATIVE ng/mL (<150) None Last Documented On 4 11:39PM ; [facility] Methadone Metabolite NEGATIVE ng/mL (<100) None Last Documented On 4 11:39PM ; [facility] Opiates POSITIVE ng/mL (<100) A (Abnormal) Last Documented On 4 11:39PM ; [facility] Codeine 2280 ng/mL (<50) H (High) Last Documented On 4 11:39PM ; [facility] medMATCH Codeine CONSISTENT None Last Documented On 4 11:39PM ; [facility] Morphine 156 ng/mL (<50) H (High) Last Documented On 4 11:39PM ; [facility] medMATCH Morphine CONSISTENT None Last Documented On 4 11:39PM ; [facility] Hydrocodone NEGATIVE ng/mL (<50) None Last Documented On 4 11:39PM ; [facility] Hydromorphone NEGATIVE ng/mL (<50) None Last Documented On 4 11:39PM ; [facility] Oxycodone POSITIVE ng/mL (<100) A (Abnormal) Last Documented On 4 11:39PM ; [facility] Oxycodone NEGATIVE ng/mL (<50) None Last Documented On 4 11:39PM ; [facility] Oxymorphone 100 ng/mL (<50) H (High) Last Documented On 4 11:39PM ; [facility] medMATCH Oxymorphone INCONSISTENT A (Abnormal) Last Documented On 4 11:39PM ; [facility] Phencyclidine NEGATIVE ng/mL (<25) None Last Documented On 4 11:39PM ; [facility] Alcohol Metabolites NEGATIVE ng/mL (<500) None Last Documented On 4 11:39PM ; [facility] 6 Acetylmorphine NEGATIVE ng/mL (<10) None Last Documented On 4 11:39PM ; [facility] pH 5.4 (4.5-9.0) None Last Documented On 4 11:39PM ; [facility] Creatinine 87.0 mg/dL (> or = 20.0) None Last Documented On 4 11:39PM ; [facility] Oxidant NEGATIVE mcg/mL (<200) None Last Documented On 4 11:39PM ; [facility] Norhydrocodone 52 ng/mL (<50) H (High) Last Documented On 4 11:39PM ; [facility] Noroxycodone 185 ng/mL (<50) H (High) Last Documented On 4 11:39PM ; [facility] medMATCH Norhydrocodone INCONSISTENT A (Abnormal) Last Documented On 11:39PM ; [facility] medMATCH Noroxycodone INCONSISTENT A (Abnormal) Last Documented On 11:39PM ; [facility] Opiates Comments See Note None Last Documented On 10/09/2023 11:39PM ; [facility] Note: See Opiates Notes, LDT Notes Oxycodone Comments See Note None Last Documented On 10/09/2023 11:39PM ; [facility] Note: See Oxycodone Notes, LDT Notes DRUG MONITORING TEMPLATE [employer] Ordered by DENNISE GRIMES on Collected: 10/07/2023 Reported: 10/09/19 24 23:08 Last Documented On 11:38AM ; [facility] Reviewed by DENNISE GRIMES on 10/28/2023; All test results are final unless otherwise noted. Notes and Comments See Note None Last Documented On 10/09/2023 11:39PM ; [facility] Note: This drug testing is for medical treatment only.Analysis was performed as non-forensic testing andthese results should be used only by healthcareproviders to render diagnosis or treatment, or tomonitor progress of medical conditions. Opiates Notes:Codeine, Morphine detected is consistent with the use of the drug Codeine. Morphine is a metabolite of Codeine. Low concentrations of Morphine have been observed following ingestion of products containing poppy seeds. Morphine detected is consistent with the use of the drug Morphine. Morphine can be a prescribed drug and is also a metabolite of Codeine and Heroin. Low concentrations of Morphine have been observed following ingestion of products containing poppy seeds. Norhydrocodone detected is consistent with the use of the drug Hydrocodone. The metabolite Hydromorphone is not present at or above the cutoff. Oxycodone Notes:Oxymorphone detected is consistent with the use of the drug Oxymorphone. Oxymorphone can be a prescribed drug and is also a metabolite of Oxycodone. Noroxycodone, Oxymorphone detected is consistent with the use of the drug Oxycodone. LDT Notes:Confirmation tests were developed and their analytical performance characteristics have been determined by [employer] It has not been cleared or approved by the FDA. This assay has been validated pursuant to the CLIA regulations and is used for clinical purposes. medMATCH(R) enables providers to identify if drug useis consistent or inconsistent with a correspondingprescribed medication(s) list. Healthcare Providers needing Interpretation assistance, please contact us at [phone] ( ) M-F, 8am to 10pm EST PRESCRIBED DRUGS, medMATCH(R) [employer] Ordered by DENNISE GRIMES on Collected: 10/07/2023 Reported: 10/09/19 24 23:08 Last Documented On 4 11:38AM ; [facility] Reviewed by DENNISE GRIMES on 10/28/2023; All test results are final unless otherwise noted. Prescribed Drug 6 Codeine None Last Documented On 4 11:39PM ; [facility] medMATCH Summary See Note None Last Documented On 10/09/2023 11:39PM ; [facility] Note: Prescribed Prescribed Not Prescribed Consistent Inconsistent Inconsistent Codeine Norhydrocodone Noroxycodone Oxymorphone Reported Physicians [employer] In c. Ordered by DENNISE GRIMES on Collected: 10/07/2023 Reported: 10/10/19 24 00:10 Last Documented On 4 11:38AM ; [facility] Reviewed by DENNISE GRIMES on 10/28/2023; All test results are final unless otherwise noted. Reported Physicians See Note None Last Documented On 10/09/2023 11:39PM ; [facility] Note: Reported Physicians:Ordering: Dennise Anthony History of Present Illness History of Present Illness not supported for this document type No History of Present Illness Recorded Social History Description Last Updated Tobacco non-user 07/26/2022 Last Documented On 3 11:48AM ; [facility] No consumption of alcohol 03/14/2022 Last Documented On 2 3:37PM ; [facility] Not using drugs 03/14/2022 Last Documented On 2 3:37PM ; [facility] Difficulty walking 08/21/2021 Last Documented On 2 4:35PM ; [facility] Smoking Status Unknown Procedures and Surgical History Surgical History Last Updated Pacemaker 03/14/2022 Last Documented On 2 3:37PM ; [facility] Medical History Includes: Medical History in patient's chart Description Last Updated Has a fear of falling. 05/23/2022 Last Documented On 3 1:28PM ; [facility] Has had a fall in the last 12 months. Last Documented On 3 1:28PM ; [facility] History of acute myocardial infarction A ugust 202103/14/2022 Last Documented On 2 3:37PM ; [facility] Currently wearing eyeglasses 03/14/2022 Last Documented On 2 3:37PM ; [facility] Deep muscle stimulation 03/14/2022 Last Documented On 2 3:37PM ; [facility] Injection/Nerve blocks 03/14/2022 Last Documented On 2 3:37PM ; [facility] No Pain Pump 03/14/2022 Last Documented On 2 3:37PM ; [facility] No Spinal cord stimulator 03/14/2022 Last Documented On 2 3:37PM ; [facility] Physical therapy 03/14/2022 Last Documented On 2 3:37PM ; [facility] Please list all illnesses/co nditions you have been diagnosed with: Two pinched nerves in my lower back neuropathy total right knee replacement heart disease 03/14/2022 Last Documented On 2 3:37PM ; [facility] Please list all surgeries: R ight ankle 1988 right knee scope 4x 2018 total right knee replacement carpal tunnel both hands 2004 and just on the right 2013 partial hysterectomy 2009 stent in my heart 2018 heart ablation 2019 [id number] 03/14/2022 Last Documented On 2 3:37PM ; [facility] Severe Pain 03/14/2022 Last Documented On 2 3:37PM ; [facility] Uses a cane for support 03/14/2022 Last Documented On 2 3:37PM ; [facility] Which brand of pacemaker/defibrillator d o you have? [employer] 03/14/2022 Last Documented On 2 3:37PM ; [facility] Family History Includes: Family History in patient's chart Description Last Updated Family history of Arthritis 03/14/2022 Last Documented On 2 3:37PM ; [facility] Family history of ischemic heart disease 03/14/2022 Last Documented On 2 3:37PM ; [facility] Family history of stroke/paralysis 03/14 Last Documented On 2 3:37PM ; [facility] Paternal history of Arthritis 03/14/2022 Last Documented On 2 3:37PM ; [facility] Paternal history of family history of is chemic heart disease 03/14/2022 Last Documented On 2 3:37PM ; [facility] Review of Systems Review of Systems not supported for this document type No Review of Systems Recorded Mental Status No Mental Status Recorded Functional Status No Functional Status Recorded Physical Exam Physical Exam not supported for this document type No Physical Exam Recorded Allergies Includes: Active, inactive, and resolved Allergies No Known Allergies Encounters Includes: Encounters from 06/10/2023 through 06/10/2024 Encounter Provider Location Date Check-In Time Check-Out Time Diagnosis PAIN MANAGEMENT FOLLOW [facility] 1:03PM 1:58PM Chronic Pain Syndrome,Bulging Intervertebral Disc Lumbar,Polyneurop athy Diabetic,Spinal Stenosis Lumbar with Neurogenic Claudication,Spon dylosis with Radiculopathy Lumbar Region,Care Home Use of Opiate Analgesic,Myalgia , Other Site (M79.18) RX ISSUE/REFILL DENNISE GRIMES 024 03/27/2023 1:47PM 03/27/2023 11:59PM RX ISSUE/REFILL DENNISE GRIMES 024 03/27/2023 3:32PM 03/27/2023 11:59PM Insurance Includes: Active Insurance Policies Plan Name Member ID Group # Subscriber Relationship Effect arcadio Dates 1 - MEDICARE PART A CLAIMS/NGS [id number] ANAM K DOLLAR Self 2 - MEDICAID OF [place] MEDICARE SECOND [id number] ANAM K DOLLAR Self Clinical Notes Includes: Signed Clinical Notes starting from 06/07/2022 * Progress note Date Encounter Last Documented by 10/07/2023 PAIN MANAGEMENT FOLLOW UP Last d ocumented on 10/08/2023; 9:10 AM, DENNISE HERNANDEZ-BC; [facility] Active Problems & Conditions - Coronary Artery Disease - Diabetes Mellitus - Hypothyroidism Chief Complaint The Chief Complaint is: HAS NOT HAD SURGERY YET, WAS PUT OFF DUE TO BONE INFECTION IN FOOT HAS HAD AMPUTATION ON RIGHT FOOT DOESN'T WANT TO DO BACK SURGERY UNTIL BONE INFECTION IS CLEARED UP. History of Present Illness - Allergy list reviewed - Allergy list reviewed - Problem list reviewed - Medication reconciliation performed - Medication list reviewed - Prescription Drug Monitoring Program website checked. 09/01/23 - How much of the medication are you taking a day? PRN - Last dose of medication? LAST NIGHT - Last drug screen appropriate 09/03/22 Discussion: Patient presents in follow up on medication. She was referred for surgery, but this was delayed due to osteomyelitis in the right foot. She recently had a great toe amputation and has not been released for surgery yet. There is question of another spot on the outside of the foot now. Tylenol #3 used as needed for pain, but had been on other pain medication after surgeries. She does not need a refill of Tylenol #3. She does need refills of other meds. Prior visit: Patient presents in follow up for medication refills. Low back pain continues with radiating pain to the right lower extremity with weakness. Myelogram done last month and she has seen Dr. Merlos. She is scheduled to have surgery 06/10/23 at [facility]. She continues tylenol #3 as needed twice daily. This medication does help and allows her to function. We will continue medication for now until she has surgery. She has no new complaints today. She continues linzess for constipation related to opioid use. Past note: Patient returns in follow up for low back pain. She is scheduled to see an associate of Dr. Merlos in February. They are requesting a myelogram due to inability to have a lumbar MRI. We will get this ordered in preparation for surgical consultation. Symptoms remain unchanged. Tylenol #3 is used as needed. Duloxetine 30mg was started last visit and she feels this helps and questions an increase. Past note: Patient returns in follow-up to a right L3-4, L4-5 transforaminal epidural completed 3 weeks ago. She reports no change in symptoms with this procedure. She describes ongoing low back pain with radicular pain to right lower extremity extending into the foot. She experiences sensory changes and describes frequent falls. She feels her right leg gives out on her and ambulates with a cane or walker most of the time. She fell just yesterday when standing at her kitchen counter to make lunch. She also suffers from neck pain that radiates to the top of the shoulders. She experiences headaches and is under the care of neurology. Neuro- tech was started approximately a month ago for headaches, but has provided minimal benefit. Pain is described as a constant, severe aching sensation in the neck. We have focused on low back pain symptoms as they are most limiting. Overall, pain is significantly impacting her activity tolerance and ability to perform self-care and household activities. She has a difficult time doing family activities and finds little enjoyment related to pain. She has become somewhat depressed with her overall pain and questions what else can be done. We discussed a surgical consultation for low back symptoms as she is experiencing multiple falls. If she is not a surgical candidate, we can consider spinal cord stimulation. This of course will not alleviate the fall risk, but may help treat painful symptoms. She does not feel Tylenol #3 is providing much benefit. We discussed starting duloxetine 30 mg at bedtime. We may titrate this to 60 mg as tolerated over the course of the next month. May consider Butrans in the future. Past note: Patient presents in follow up on low back and cervical pain. She is also here to review cervical imaging. Low back is primary. She complains of pain radiating to the right posterolateral lower extremity into the foot with sensory changes. She feels the leg gives out on her. She ambulates with a walker. History of right knee replacement with ongoing pain. Recent right 3rd toe amputation r/t osteomyelitis. This did not improve and she is now on IV antibiotics for 6 weeks, with 5 weeks remaining. We discussed cervical imaging, which essentially shows severe arthritis only at C7-T1. She continues home exercises on the low back and cervical spine as tolerated. Therapy was done last year on the low back and caused increased pain. She was given home exercises from our office for cervical spine 2 months ago. She would like to proceed with lumbar injections once she is done with IV antibiotics. She continues tylenol #3 twice per day with benefit for the most. Gabapentin is helpful most of the time for neuropathy symptoms. Cervical pain most likely is muscular as well as stemming some from the arthritis at C7-T1. We can consider formal therapy with myofascial work in the future. Past note: Patient presents in 2 month follow up. She has been doing cervical home exercises we provided for the last 2 months. These provide minimal relief. She continues to describe neck pain into the top of the shoulders and forearms and hands. She has numbness and tingling in the fingers. Cardiology is ok with her proceeding with injections at this point. We discussed need for CT cervical spine and will proceed with treatment based on findings. She has been on Hydrocodone for the last week after a toe amputation and is not taking tylenol #3 Past note: Patient states in the last few months her neck pain has increased. It keeps her awake now. She states the pain goes into the bilateral shoulders and upper arms. She also has pain in the forearms and into the hands/fingers as well. Denies numbness but the fingers tingle. She also has weakness in the arms at times. She has a lot of muscle tightness and pressure. With her recent NM and hypotension we will avoid further medication. She is on Brilinta s/p stent placement so we can not do any interventional procedures at this time. I will have her work on home exercises 10-15minutes daily [I gave her a print out of the exercises]. She can use heat and her current medication. We will obtain cervical spine x-ray. We may need to do EMG/NCV in the future. She may benefit from Duloxetine and/or a muscle relaxer once her hypotension issues have been addressed. PRIOR VISIT: Patient presents in follow-up for chronic low back pain with radicular symptoms to the lower extremities. She has been unable to pursue lumbar epidural injections due to other comorbidities. Patient suffered a myocardial infarction and [place] and continues to be weak and hypotensive. She is saying cardiology regularly and starting cardiac rehab. Pain continues and she is utilizing Tylenol #3 as needed. This does provide a degree of relief. Gabapentin was restarted and does help. At this point, she will continue with current medication regimen. I would not recommend interventional modalities at this point in light of recent cardiac event and anticoagulants. Past note: Patient presents in follow up to review imaging. Symptoms remain unchanged. She describes ongoing low back pain with radiculopathy symptoms to the lower extremities, R>L, in L4-5 dermatomal pattern. She continues home exercises as tolerated, but this often increases her pain. Pain is limiting her daily activities. Her blood sugars continue to be better controlled on current regimen. We discussed lumbar epidural injection and she would like to proceed. She is somewhat hypotensive today. She reports being hypotensive in her pcp office last week and has a f/u in 2 weeks. She reports mild dizziness when she first stands, which quickly resolves. Encouraged her to hydrate and to call her pcp today to f/u. Past visit: F/U for low back pain. She has continued therapy; however, this has caused her increased pain. Pain radiates to the right upper extremity in a L4/5 dermatomal pattern. Increased dose of gabapentin has helped with neuropathy symptoms, but has not helped alot with her radicular symptoms or back pain. She has lost weight with the start of ozempic. Her blood sugars are better controlled, but she is still fatigued. This may be gabapentin causing this and she will monitor symptoms as her blood sugars level out. Tylenol #3 is used at bedtime as needed with benefit. Linzess has helped significantly with constipation. We discussed plan for CT lumbar spine and will consider interventional modalities based on findings. Past note; Patient is a pleasant 51-year-old female referred for evaluation and treatment. She describes chronic low back pain as well as chronic pain in the lower and upper extremities related to diabetic neuropathy. Chronic back pain radiates into right buttock and occasionally the upper thigh. This has been present 10-15 years. Symptoms increase with prolonged standing, sitting, stairs and laying on her side. Pain improves with position changes, stretching. She has not done therapy or injections. Imaging done on lumbar spine years ago. Peripheral neuropathy diagnosed over 8 years ago. Diabetes was fairly well controlled until a fall a few months ago. Pain has caused sugars to increase. Insulin pump recently recalled. She is getting a replacement in the next few days. She has an upcoming appt with machine wedger. Numbness and tingling in feet causes falls. After right knee replacement there was an increase in lateral thigh/knee numbness and more falls. Her neurologist placed her on permanent restrictions due to gait instability and she is now on disability. She had worked at [employer] for over 20 years. Gabapentin 300mg TID has been her dose for 5 plus years. She was originally treated by Dr Araujo until his longterm and given oxycodone. Dr Cabrera assumed care until recently. He no longer prescribes pain medication. Her pcp placed her on Tylenol #3 at bedtime, which provides minimal relief. She really doesn't question additional pain medication and is open to a treatment plan that would include reduction of medication use. 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 She reports recent palpitations. We will also consider therapy once she is cleared. She may be a candidate for lumbar injections and/or spinal cord stimulator for both back pain and peripheral neuropathy. Patient does have a considerable drive and honestly there are pain clinics closer to her home. Traveling does cause her increase pain and she may explore a pain clinic closer to home, which is understandable. For now, we will get xrays and increase gabapentin. Imaging: All relevant imaging available was personally reviewed with the patient today with the following tests and results noted: X-ray L spine 09/12/21: no fracture of the lumbar spine. Grade 1 anterolisthesis of L4 on L5. Moderate degenerative disc disease and facet arthropathy, greater in the lower levels. CTL spine 12/18/21: moderate to advanced lower lumbar degenerative disc and facet arthropathy with significant neural foraminal stenosis on the right at L4-5 grade 1 anterior list thesis of L4 on L5. Mild spinal canal stenosis at L4-5 and L5-S1. Bilateral SI joint degenerative changes. Vehicle retention and: suggestive of constipation CT cervical spine 08/26/22: dextro curvature of the cervical thoracic spine. Hemangioma noted at C5. Mild facet joint osteoarthritis C2-C5. No facet osteoarthritis C5-C7. No foraminal narrowing C2-C7. C7-T-1 severe bilateral facet joint osteoarthritis and mild bilateral neural foraminal stenosis. X-ray cervical spine 06/03/22: mild degenerative changes of the cervical spine without evidence of fracture CT myelogram lumbar spine 02/11/23: no significant change and mild to moderate lower lumbar predominant spondylosis with disc bulge and central disc extrusion at L4- 5 resulting and moderate central canal stenosis and mild left and moderate right neural foraminal stenosis at this level. Test Conclusions PHQ-9 Score: 9 Date: 10/07/23 BPI Score: Date: MiDAS Score: Date: SOAPP-R Score: 6 LOW Date:10/07/23 MARIEL Score:33=66% Date:10/07/23 Past Medical/Surgical History Reported: Injection/Nerve blocks, Deep muscle stimulation, Physical therapy, Which brand of pacemaker/defibrillator do you have? [employer], Please list all illnesses/conditions you have been diagnosed with: Two pinched nerves in my lower back neuropathy total right knee replacement heart disease, and Please list all surgeries: Right ankle 1988 right knee scope 4x 2018 total right knee replacement carpal tunnel both hands 2003 and just on the right 2012 partial hysterectomy 2009 stent in my heart 2018 heart ablation 2019 [id number]. Medical: Currently wearing eyeglasses, orthopedic history Left Knee Score mild pain Severe Pain, and Uses a cane for support. Surgical / Procedural: Pacemaker. Physical Trauma: Has had a fall in the last 12 months. Has a fear of falling. Diagnoses: Acute myocardial infarction December 2021 Current Medication - Acetaminophen-Codeine 300-30 MG Oral Tablet 1 po bid prn/ max 2 per day, 20 days, 0 refills - Aspirin 81 MG Oral Capsule 1 capsule daily 0 days, 0 refills - Atorvastatin Calcium 40 MG Oral Tablet One tablet daily 30 days, 0 refills - Brilinta 90 MG Oral Tablet One tablet twice a day 90 days, 0 refills - Bumetanide 1 MG Oral Tablet One tablet twice a day 90 days, 0 refills - Carvedilol 6.25 MG Oral Tablet One tablet twice a day 90 days, 0 refills - DULoxetine HCl 60 MG Oral Capsule Delayed Release Particles TAKE 1 CAPSULE BY MOUTH DAILY, 90 days, 0 refills - Entresto 24-26 MG Oral Tablet One tablet twice a day 90 days, 0 refills - Gabapentin 600 MG Oral Tablet TAKE 1 TABLET BY MOUTH THREE TIMES DAILY, 90 days, 0 refills - Gentamicin Sulfate 0.1% External Ointment as directed 15 days, 0 refills - Jardiance 25 MG Oral Tablet One tablet daily 90 days, 0 refills - Kerendia 20 MG Oral Tablet One tablet daily 30 days, 0 refills - Levothyroxine Sodium 100 MCG Oral Tablet One tablet daily 30 days, 0 refills - Linzess 145 MCG Oral Capsule TAKE 1 CAPSULE BY MOUTH DAILY, 30 days, 2 refills - metFORMIN HCl 1000 MG Oral Tablet One tablet twice a day 30 days, 0 refills - Nitroglycerin 0.4 MG Sublingual Tablet Sublingual as directed 0 days, 0 refills - Ozempic (0.25 or 0.5 MG/DOSE) 2 MG/3ML Subcutaneous Solution Pen-injector as directed 28 days, 0 refills - Qulipta 60 MG Oral Tablet One tablet daily 30 days, 0 refills - Santyl 250 UNIT/GM External Ointment as directed 5 days, 0 refills - tiZANidine HCl 2 MG Oral Tablet TAKE 1 TABLET BY MOUTH 2 TO 3 TIMES PER DAY NEEDED, 15 days, 0 refills - Topiramate 25 MG Oral Tablet One tablet daily 30 days, 0 refills - Ubrelvy 100 MG Oral Tablet One tablet daily 14 days, 0 refills Social History Difficulty walking. Tobacco use: Tobacco non-user. Allergies - No Known Allergies Family History Arthritis Stroke/paralysis Ischemic heart disease Paternal: Arthritis Ischemic heart disease Review Of Systems Systemic: No systemic symptoms other than noted. In poor overall health and fatigue. Head: Headache chronic/recurring. Neck: Neck pain. Cardiovascular: No chest pain or discomfort and no palpitations. Pulmonary: No shortness of breath. Chronic cough. Gastrointestinal: No constipation. Genitourinary: No genitourinary symptoms other than noted. Endocrine: Weakness. Hematologic: No easy bleeding. A tendency for easy bruising. No tendency for easy bruising. Musculoskeletal: Back pain, ankle joint swelling, muscle aches, soft tissue swelling of a hand, of the foot, muscle cramps, pain localized to one or more joints, and joint stiffness localized to one or more joints. Neurological: Dizziness, Falls, and numbness. Psychological: Depression. Skin: Dry skin and a skin wound is slow to heal. Physical Findings - Vitals taken 10/07/2023 01:28 pm BP-Sitting R 90/60 mmHg Pulse Rate-Sitting 90 bpm Temp-Temporal 97.3 F Height 65 in Weight 126 lbs Body Mass Index 21 kg/m2 Body Surface Area 1.6 m2 Pain Level 7 Pain Level Note BACK, NECK AND RIGHT FOOT Oxygen Saturation 98 % Musculoskeletal System: General/bilateral: Musculoskeletal Scales: Value Lumbar oswestry score 66 Psychiatric: Psychiatric: Value PHQ9 score: 9 Constitutional: Well developed. Well nourished. In no acute distress. HEENT: NC/AT. Anicteric. Clear Conjunctiva. PERRLA. CVS: Peripheral pulses palpable in all extremities. Pulmonary: Normal chest expansion bilaterally. Spine/MSK: Tenderness bilateral lumbar facet joints, R>L. Tenderness bilateral SI joints, R >L. Tenderness lumbar paraspinals. Decrease lumbar range of motion in all planes. Positive facet loading. Positive Cielo maneuver bilaterally. Positive SLR on the right. Cervical Spine: Tender cervical spinal muscles. Positive facet loading bilaterally. ROM is ok with pain on hyperextension. Spurling's negative. Gait: mildly antalgic. No steppage gait. Neuro: Awake. Alert. Oriented x3. DTR's absent throughout lower extremities. Decreased sensation to right lower extremity along lateral knee to ankle on right. Decreased sensation bilateral feet to mid calf in sock like distribution. Psych: No apparent distress. Mood normal. Affect normal. No pain behaviors. Skin: No rash. Normal pigmentation. Normal temperature Tests Educational Testing: Questionnaires PHQ-9: Value SOAPP-R: total score 6 Assessment - Bulging lumbar disc [M51.26 - Other intervertebral disc displacement, lumbar region] - Lumbar spondylosis with radiculopathy [M47.26 - Other spondylosis with radiculopathy, lumbar region] - Lumbar stenosis with neurogenic claudication [M48.062 - Spinal stenosis, lumbar region with neurogenic claudication] - Diabetic polyneuropathy [E13.42 - Other specified diabetes mellitus with diabetic polyneuropathy] - Myalgia [M79.18 - Myalgia, other site] - Chronic pain syndrome [G89.4 - Chronic pain syndrome] - 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 [Z79.891 - 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 Patient understands treatment plan. Counseling/Education - Pill Count: seven TYLENOL #3 Discussed Will continue chronic opioid therapy. Reports improvement in pain. Patient is able to maintain function levels with use of medication management. Reports no adverse side effects. Patient advised of risks and benefits of medication- including tolerance, dependence, addiction, constipation, itching, allergic reactions, sedation, impairment, respiratory depression or failure, development of hyperalgesia Patient was instructed on taking medication correctly; storing medication securely; disposing of medication properly and to never share medication. Continue with plan for surgery. We will continue medications until that time. PCP may need to assume non narcotic medications. No follow up at this point with surgery planned in about 6 weeks. 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 Results of this interaction were communicated directly to the patient's referring and/or primary care provider. Multiple documents have been reviewed today in conjunction with her evaluation including online prescription monitoring database, laboratory data, imaging studies, previous specialist provider notes and primary care provider notes. For all patients on acute or chronic opioids, ongoing need for opioid analgesia is assessed at each visit with consideration of discontinuation or wean to lowest effective dose when possible and appropriate. Contents of this document have been edited for correctness, but may be subject to typographical or proofer black and white errors. Verify all diagnoses, medications, dosages, and patient instructions with patient and/or the originator of this document. Care Team - DAVID SHETTY- - Pain Management Health Reminders - Assess BMI satisfied 10/07/2023. - Assess Need for CT Lung Screen satisfied 10/07/2023. - Assess Tobacco Use satisfied 10/07/2023. - Depression Screening satisfied 10/07/2023. * Progress note Date Encounter Last Documented by 07/18/2023 RX ISSUE/REFILL Last documented on 07/21/2023; 10:00 AM, DENNISE ANTHONY ANP-; [facility] Active Problems & Conditions - Coronary Artery Disease - Diabetes Mellitus - Hypothyroidism Chief Complaint Phone Call - Chief Concern: Reason for call:RX REFILL CALLED AT NOON ON FRIDAY Patient is requesting a refill on TYLENOL #3 ~How is medication taken? BID ~How many are left?4 Risk Assessment Score: LOW ~[place]:06/13/23 Last Office Visit: 03/27/23 ~ pt phone # for Return call: [phone] ~Last Drug Screen:09/03/22 ~Date/Initials: 07/18/23 CB. Past Medical/Surgical History Reported: Injection/Nerve blocks, Deep muscle stimulation, Physical therapy, Which brand of pacemaker/defibrillator do you have? [employer], Please list all illnesses/conditions you have been diagnosed with: Two pinched nerves in my lower back neuropathy total right knee replacement heart disease, and Please list all surgeries: Right ankle 1988 right knee scope 4x 2018 total right knee replacement carpal tunnel both hands 2004 and just on the right 2012 partial hysterectomy 2009 stent in my heart 2018 heart ablation 2019 [id number]. Medical: Currently wearing eyeglasses, orthopedic history Left Knee Score mild pain Severe Pain, and Uses a cane for support. Surgical / Procedural: Pacemaker. Physical Trauma: Has had a fall in the last 12 months. Has a fear of falling. Diagnoses: Acute myocardial infarction December 2021 Current Medication - Aspirin 81 MG Oral Capsule 1 capsule daily 0 days, 0 refills - Atorvastatin Calcium 40 MG Oral Tablet One tablet daily 30 days, 0 refills - Brilinta 90 MG Oral Tablet One tablet twice a day 90 days, 0 refills - Bumetanide 1 MG Oral Tablet One tablet twice a day 90 days, 0 refills - Carvedilol 6.25 MG Oral Tablet One tablet twice a day 90 days, 0 refills - DULoxetine HCl 60 MG Oral Capsule Delayed Release Particles TAKE 1 CAPSULE BY MOUTH DAILY, 90 days, 0 refills - Entresto 24-26 MG Oral Tablet One tablet twice a day 90 days, 0 refills - Gabapentin 600 MG Oral Tablet TAKE 1 TABLET BY MOUTH THREE TIMES DAILY, 90 days, 0 refills - Jardiance 25 MG Oral Tablet One tablet daily 90 days, 0 refills - Kerendia 20 MG Oral Tablet One tablet daily 30 days, 0 refills - Levothyroxine Sodium 100 MCG Oral Tablet One tablet daily 30 days, 0 refills - Linzess 145 MCG Oral Capsule TAKE 1 CAPSULE BY MOUTH DAILY, 30 days, 2 refills - metFORMIN HCl 1000 MG Oral Tablet One tablet twice a day 30 days, 0 refills - Nitroglycerin 0.4 MG Sublingual Tablet Sublingual as directed 0 days, 0 refills - tiZANidine HCl 2 MG Oral Tablet 1 po 2-3 times per day prn, 15 days, 0 refills - Topiramate 25 MG Oral Tablet One tablet daily 30 days, 0 refills - Vascepa 1 GM Oral Capsule One tablet twice a day 30 days, 0 refills Social History Difficulty walking. Tobacco use: Tobacco non-user. Allergies - No Known Allergies Plan StartCited - Spinal stenosis, lumbar region with neurogenic claudication Acetaminophen-Codeine 300-30 MG tablet 1 po bid prn/ max 2 per day, 20 days, 0 refills EndCited Care Team - DENNISE ANTHONY, DAVIDBC - Pain Management Health Reminders - Assess Need for CT Lung Screen satisfied 07/18/2023. - Assess Tobacco Use satisfied 07/18/2023. * Progress note Date Encounter Last Documented by 06/12/2023 RX ISSUE/REFILL Last documented on 06/12/2023; 4:07 PM, DENNISE HERNANDEZ-BC; [facility] Active Problems & Conditions - Coronary Artery Disease - Diabetes Mellitus - Hypothyroidism Chief Complaint Phone Call - Chief Concern: reason for call:Pt called to check on med refill . She is out of medicaiotn. Wanting to know if you are going to refill this. Refill was put in on 06/09/23 pt phone # for return call: date/initials:06/12/23 CB. Past Medical/Surgical History Reported: Injection/Nerve blocks, Deep muscle stimulation, Physical therapy, Which brand of pacemaker/defibrillator do you have? [employer], Please list all illnesses/conditions you have been diagnosed with: Two pinched nerves in my lower back neuropathy total right knee replacement heart disease, and Please list all surgeries: Right ankle 1988 right knee scope 4x 2018 total right knee replacement carpal tunnel both hands 2003 and just on the right 2012 partial hysterectomy 2008 stent in my heart 2018 heart ablation 2019 [id number]. Medical: Currently wearing eyeglasses, orthopedic history Left Knee Score mild pain Severe Pain, and Uses a cane for support. Surgical / Procedural: Pacemaker. Physical Trauma: Has had a fall in the last 12 months. Has a fear of falling. Diagnoses: Acute myocardial infarction December 2021 Current Medication - Aspirin 81 MG Oral Capsule 1 capsule daily 0 days, 0 refills - Atorvastatin Calcium 40 MG Oral Tablet One tablet daily 30 days, 0 refills - Brilinta 90 MG Oral Tablet One tablet twice a day 90 days, 0 refills - Bumetanide 1 MG Oral Tablet One tablet twice a day 90 days, 0 refills - Carvedilol 6.25 MG Oral Tablet One tablet twice a day 90 days, 0 refills - DULoxetine HCl 60 MG Oral Capsule Delayed Release Particles TAKE 1 CAPSULE BY MOUTH DAILY, 90 days, 0 refills - Entresto 24-26 MG Oral Tablet One tablet twice a day 90 days, 0 refills - Gabapentin 600 MG Oral Tablet TAKE 1 TABLET BY MOUTH THREE TIMES DAILY, 30 days, 0 refills - Jardiance 25 MG Oral Tablet One tablet daily 90 days, 0 refills - Kerendia 20 MG Oral Tablet One tablet daily 30 days, 0 refills - Levothyroxine Sodium 100 MCG Oral Tablet One tablet daily 30 days, 0 refills - Linzess 145 MCG Oral Capsule TAKE 1 CAPSULE BY MOUTH DAILY, 30 days, 2 refills - metFORMIN HCl 1000 MG Oral Tablet One tablet twice a day 30 days, 0 refills - Nitroglycerin 0.4 MG Sublingual Tablet Sublingual as directed 0 days, 0 refills - tiZANidine HCl 2 MG Oral Tablet 1 po 2-3 times per day prn, 15 days, 0 refills - Topiramate 25 MG Oral Tablet One tablet daily 30 days, 0 refills - Vascepa 1 GM Oral Capsule One tablet twice a day 30 days, 0 refills Social History Difficulty walking. Tobacco use: Tobacco non-user. Allergies - No Known Allergies Plan StartCited - Spinal stenosis, lumbar region with neurogenic claudication Acetaminophen-Codeine 300-30 MG tablet 1 po bid prn/ max 2 per day, 30 days, 0 refills EndCited Care Team - DAVID SHETTY- - Pain Management Health Reminders - Assess Need for CT Lung Screen satisfied 06/12/2023. - Assess Tobacco Use satisfied 06/12/2023.
--- OUTSIDE RECORDS SUMMARY | 2024-06-10 15:08 | XMS_ITS | Clinical Summary ---
Author Organization [facility] Address [address] [place] [address] Phone Care Team Providers Care Sheeting Puller Name Role Phone EUFEMIA SYDNEY DENNISE Vita Unavailable [phone] CAMPOS WHEELER MD Primary Care Provider [phone] Reason for Visit and Chief Complaint The Chief Complaint is: 3 MO FU Problems Includes: Problems addressed during this encounter and other active Problems All Visits Onset Date Resolved Date Provider Condition S tatus Coronary Artery Disease Unknown JANAE Lynn PELON INSTALLATION ENGINEER-FPA, WAGE HAND-BC Active Last Documented On 3 10:16AM ; [facility] Diabetes Mellitus Unknown JANAE Lynn PELON APR N-FPA, WAGE HAND-BC Active Last Documented On 3 10:18AM ; [facility] Hypothyroidism Unknown JANAE Lynn PELON INSTALLATION ENGINEER-F PA, WAGE HAND-BC Active Last Documented On 3 10:18AM ; [facility] Plan of Treatment Education and Decision Aids were provided during visit for: Pill Count: three TYLENOL #3 Last Documented On 3 9:55AM ; [facility] Assessments Includes: Assessments from this encounter Findings - Bulging lumbar disc [M51.26 - Other intervertebral disc displacement, lumbar region] - Last Documented On 03/27/2023 10:20AM ; [facility] - Lumbar spondylosis with radiculopathy [M47.26 - Other spondylosis with radiculopathy, lumbar region] - Last Documented On 03/27/2023 10:20AM ; [facility] - Lumbar stenosis with neurogenic claudication [M48.062 - Spinal stenosis, lumbar region with neurogenic claudication] - Last Documented On 03/27/2023 10:20AM ; [facility] - Diabetic polyneuropathy [E13.42 - Other specified diabetes mellitus with diabetic polyneuropathy] - Last Documented On 03/27/2023 10:20AM ; [facility] - Myalgia [M79.18 - Myalgia, other site] - Last Documented On 03/27/2023 10:20AM ; [facility] - Chronic pain syndrome [G89.4 - Chronic pain syndrome] - Last Documented On 03/27/2023 10:20AM ; [facility] - correction use of opiate analgesic [Z79.891 - correction (current) use of opiate analgesic] - Last Documented On 03/27/2023 10:20AM ; [facility] Instructions Includes: Instructions from this encounter Education and Decision Aids were provided during visit for: Pill Count: three TYLENOL #3 Last Documented On 3 9:55AM ; [facility] Medical Equipment - Implanted Devices Includes: Current Devices No Medical Equipment Recorded Medications Includes: Medications discussed during this encounter and other current Medications Discontinued / Stopped on this date DENNISE GRIMES on 01/13/2023 Acetaminophen-Codeine 300-30 MG Oral Tablet Provider: DENNISE GRIMES Diagnosis: Spondylosis w/o myelopathy or radiculopathy, lumbar region Last Documented On 3 10:12AM By DENNISE GRIMES ; [facility] DULoxetine HCl 30 MG Oral Capsule Delayed Release Particles Provider: DENNISE SHIPLEY Diagnosis: Chronic pain syn drome Last Documented On 3 10:04AM By DENNISE GRIMES ; [facility] New / Renewed during this visit DENNISE GRIMES on 03/27/2023 Acetaminophen-Codeine 300-30 MG Oral Tablet Provider: DENNISE GRIMES 30 day supply: 60 tablet, 0 refills Diagnosis: Spinal stenosis, lumbar region with neurogenic claudication 1 po bid prn/ max 2 per day [facility] [address], [phone] - Last Documented On 4 4:06PM By [facility] ; [facility] Current Medications (continue as prescribed) Linzess 145 MCG Oral Capsule 11/03/2023 Provider: ISIDORO SCHMIDT Diagnosis: Constipation, un specified TAKE 1 CAPSULE BY MOUTH DAILY Last Documented On 4 1:40PM By JANAE [facility] ; [facility] tiZANidine HCl 2 MG Oral Tablet 10/24/2023 Provider: JANAE HENNING WAGE HAND-CHRISTOFER Diagnosis: TAKE 1 TABLET BY MOUTH 2 TO 3 TIMES PER DAY NEEDED Last Documented On 4 10:26AM By JANAE NEALCHRISTOFER ; [facility] Acetaminophen-Codeine 300-30 MG Oral Tablet 10/08/2023 Provider: DENNISE GRIMES Diagnosis: Spinal stenosis, lumbar region with neurogenic claudication 1 po bid prn/ max 2 per day Last Documented On 4 9:26AM By [facility] ; [facility] Ozempic (0.25 or 0.5 MG/DOSE ) 2 MG/3ML Subcutaneous Solution Pen-injector 10/02/2023 Provider: Diagnosis: Last Documented On 10/07/2023 1:34PM By Laura RIVERA ; [facility] Ubrelvy 100 MG Oral Tablet 09/18/2023 Provider: Diagnosis: Last Documented On 10/07/2023 1:35PM By Laura RIVERA ; [facility] Qulipta 60 MG Oral Tablet 09/11/2023 Provider: Diagnosis: Last Documented On 10/07/2023 1:34PM By Laura RIVERA ; [facility] tiZANidine HCl 2 MG Oral Tablet 08/13/2023 Provider: JANAE HENNING WAGE HANDQUINTEN Diagnosis: TAKE 1 TABLET BY MOUTH 2 TO 3 TIMES PER DAY NEEDED Last Documented On 4 12:03PM By JANAE [facility] ; [facility] Gentamicin Sulfate 0.1% External Ointment 07/11/2023 Provider: JW HARTM Diagnosis: Last Documented On 10/07/2023 1:33PM By Laura RIVERA ; [facility] Gabapentin 600 MG Oral Tablet 06/23/2023 Provider: [facility] Diagnosis: h diabetes lary litus with diabetic polyneuropathy TAKE 1 TABLET BY MOUTH THREE TIMES DAILY Last Documented On 4 8:40AM By DENNISE FALL [facility] ; [facility] DULoxetine HCl 60 MG Oral Capsule Delayed Release Particles 06/23/2023 Provider: DENNISE FALL [facility] Diagnosis: Chronic pain syn drome TAKE 1 CAPSULE BY MOUTH DAILY Last Documented On 4 8:40AM By DENNISE FALL [facility] ; [facility] Santyl 250 UNIT/GM External Ointment 06/06/2023 Prov ider: JW MARIN DPM Diagnosis: Last Documented On 10/07/2023 1:34PM By Laura RIVERA ; [facility] Bumetanide 1 MG Oral Tablet 09/13/2022 Provider: Diagnosis: Last Documented On 3 10:28AM By Laura RIVERA ; [facility] Kerendia 20 MG Oral Tablet 03/03/2022 Provider: Diagnosis: Last Documented On 03/14/2022 3:11PM By Laura RIVERA ; [facility] Brilinta 90 MG Oral Tablet 02/19/2022 Provider: Diagnosis: Last Documented On 03/14/2022 3:12PM By Laura RIVERA ; [facility] Carvedilol 6.25 MG Oral Tablet 01/26/2022 Provider: Diagnosis: Last Documented On 03/14/2022 3:06PM By Laura RIVERA ; [facility] Entresto 24-26 MG Oral Tablet 01/25/2022 Provider: Diagnosis: Last Documented On 03/14/2022 3:13PM By Laura RIVERA ; [facility] Jardiance 25 MG Oral Tablet 09/03/2021 Provider: Diagnosis: Last Documented On 09/20/2021 9:45AM By Laura RIVERA ; [facility] Aspirin 81 MG Oral Capsule 08/21/2021 Provider: Diagnosis: Last Documented On 08/21/2021 1:34PM By Laura RIVERA ; [facility] Nitroglycerin 0.4 MG Sublingual Tablet Sublingual 09/2021 Provider: Diagnosis: Last Documented On 08/21/2021 1:36PM By Laura RIVERA ; [facility] metFORMIN HCl 1000 MG Oral Tablet 08/20/2021 Provide r: CAMPOS WHEELER MD Diagnosis: Last Documented On 08/21/2021 1:30PM By Laura RIVERA ; [facility] Levothyroxine Sodium 100 MCG Oral Tablet 08/20/2021 Provider: CAMPOS WHEELER MD Diagnosis: Last Documented On 08/21/2021 1:30PM By Laura RIVERA ; [facility] Topiramate 25 MG Oral Tablet 2021 Provider: Diagnosis: Last Documented On 08/21/2021 1:31PM By Laura RIVERA ; [facility] Atorvastatin Calcium 40 MG Oral Tablet 08/09/2021 Pr ovider: CAMPOS WHEELER MD Diagnosis: Last Documented On 08/21/2021 1:31PM By Laura RIVERA ; [facility] Past Medications on file Bumetanide 1 MG Oral Tablet 05/23/2022 - 06/22/2022 Pr ovider: Diagnosis: Last Documented On 10:20AM By JANAE TURNER ; [facility] Medications Administered Includes: Administered Medications from this encounter No Administered Medications Recorded Vital Signs Includes: Vital Signs from this encounter Vital Name 03/27/2023 09:48A Blood Pressure Sitting L 86/62 Pulse Rate-Sitting (bpm) 80 Temp-Temporal 96.6 Height (in) 65 Weight (lb) 134 Body Mass Index 22.3 Body Surface Area 1.7 Pain Level 6 Oxygen Saturation (%) 99 Last Documented: On 03/27/2023 9:51AM ; [facility] Results Includes: Results discussed during this encounter No Results Recorded For Specified Dates History of Present Illness Includes: History of Present Illness from this encounter HPI - Allergy list reviewed - Allergy list reviewed - Problem list reviewed - Medication reconciliation performed - Medication list reviewed - Prescription Drug Monitoring Program website checked. 01/13/23 - How much of the medication are you taking a day? PRN - Last dose of medication? LAST NIGHT - Last drug screen appropriate 09/03/22 Discussion: Patient presents in follow up for medication refills. Low back pain continues with radiating pain to the right lower extremity with weakness. Myelogram done last month and she has seen Dr. Merlos. She is scheduled to have surgery 06/10/23 at [facility]. She continues tylenol #3 as needed twice [...] muscle tightness and pressure. With her recent SC and hypotension we will avoid further medication. [...] comorbidities. Patient suffered a myocardial infarction and [place] and continues to be weak and hypotensive. [...] days. 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 Numbness and tingling in feet causes falls. After right knee replacement there was an increase in lateral thigh/knee numbness and more falls. Her neurologist placed her on permanent restrictions due to gait instability and she is now on disability. She had worked at [employer] for over 20 years. Gabapentin 300mg TID has been her dose for 5 plus years. She was originally treated by Dr Araujo until his skilled nursing and given oxycodone. Dr Cabrera assumed care until recently. He no longer prescribes pain medication. Her pcp placed her on Tylenol #3 at bedtime, which provides minimal relief. She really doesn't question additional pain medication and is open to a treatment plan that would include reduction of medication use. We discussed increasing gabapentin to 600mg tid and will do so if her furnace operator oil or gas is ok with this, she is seeing [...] right neural foraminal stenosis at this level. Social History Description Last Updated Tobacco non-user 07/26/2022 Last Documented On 3 9:48AM ; [facility] Difficulty walking 08/21/2021 Last Documented On 3 9:48AM ; [facility] Smoking Status Unknown Procedures and Surgical History Includes: Procedures from this encounter Procedures Code Diagnosis Performing Provider Service L ocation Service Date use of tobacco assessment performed 1000F Last Documented On 3 9:55AM ; [facility] review of medications documented 1160F Last Documented On 3 9:55AM ; [facility] screening for adult depression: impressi on and score seven Last Documented On 3 9:48AM ; [facility] standardized depression screening: posit arcadio for symptoms Last Documented On 3 9:48AM ; [facility] Clinical summary provided to patient Last Documented On 3 9:48AM ; [facility] SOAPP-R: total score 4 Last Documented On 3 9:48AM ; [facility] Surgical History Last Updated Pacemaker 03/14/2022 Last Documented On 3 9:48AM ; [facility] Medical History Includes: Medical History addressed during this encounter Description Last Updated Has a fear of falling. 05/23/2022 Last Documented On 3 9:48AM ; [facility] Has had a fall in the last 12 months. Last Documented On 3 9:48AM ; [facility] History of acute myocardial infarction A ugust 202103/14/2022 Last Documented On 3 9:48AM ; [facility] Currently wearing eyeglasses 03/14/2022 Last Documented On 3 9:48AM ; [facility] Deep muscle stimulation 03/14/2022 Last Documented On 3 9:48AM ; [facility] Injection/Nerve blocks 03/14/2022 Last Documented On 3 9:48AM ; [facility] Physical therapy 03/14/2022 Last Documented On 3 9:48AM ; [facility] Please list all illnesses/co nditions you have been diagnosed with: Two pinched nerves in my lower back neuropathy total right knee replacement heart disease 03/14/2022 Last Documented On 3 9:48AM ; [facility] Please list all surgeries: R ight ankle 1988 right knee scope 4x 2018 total right knee replacement carpal tunnel both hands 2004 and just on the right 2012 partial hysterectomy 2009 stent in my heart 2018 heart ablation 2019 [id number] 03/14/2022 Last Documented On 3 9:48AM ; [facility] Severe Pain 03/14/2022 Last Documented On 3 9:48AM ; [facility] Uses a cane for support 03/14/2022 Last Documented On 3 9:48AM ; [facility] Which brand of pacemaker/defibrillator d o you have? Biotronik 03/14/2022 Last Documented On 3 9:48AM ; [facility] Family History Includes: Family History addressed during this encounter Description Last Updated Family history of Arthritis 03/14/2022 Last Documented On 3 9:48AM ; [facility] Family history of ischemic heart disease 03/14/2022 Last Documented On 3 9:48AM ; [facility] Family history of stroke/paralysis 03/14 Last Documented On 3 9:48AM ; [facility] Paternal history of Arthritis 03/14/2022 Last Documented On 3 9:48AM ; [facility] Paternal history of family history of is chemic heart disease 03/14/2022 Last Documented On 3 9:48AM ; [facility] Review of Systems Includes: Review of Systems from this encounter Systemic: No systemic symptoms other than noted. [...] a skin wound is slow to heal. Mental Status Includes: Mental Status from this encounter No Mental Status Recorded Functional Status Includes: Functional Status from this encounter No Functional Status Recorded Physical Exam Includes: Physical Exam from this encounter Allergies Includes: Active Allergies No Known Allergies Encounters Encounter Provider Location Date Check-In Time Check-Out Time Diagnosis PAIN MANAGEMENT FOLLOW UP DENNISE FALL [facility] 023 9:32AM 10:11AM Chronic Pain Syndrome,Bulging Intervertebral Disc Lumbar,Polyneurop athy Diabetic,Spinal Stenosis Lumbar with Neurogenic Claudication,Spon dylosis with Radiculopathy Lumbar Region,Longterm Use of Opiate Analgesic,Myalgia , Other Site (M79.18) Insurance Includes: Active Insurance Policies Plan Name Member ID Group # Subscriber Relationship Effect arcadio Dates 1 - MEDICARE PART A CLAIMS/NGS [id number] ANAM [employer] DOLLAR Self 2 - MEDICAID OF [place] MEDICARE SECOND [id number] ANAM K DOLLAR Self Clinical Notes Includes: Clinical Notes from this encounter * Progress note Date Encounter Last Documented by 03/27/2023 PAIN MANAGEMENT FOLLOW UP Last d ocumented on 03/27/2023; 10:20 AM, DENNISE FALL ANP-; [facility] Active Problems & Conditions - Coronary Artery Disease - Diabetes Mellitus - Hypothyroidism Chief Complaint The Chief Complaint is: 3 MO FU. History of Present Illness - Allergy list reviewed - Allergy list reviewed - Problem list reviewed - Medication reconciliation performed - Medication list reviewed - Prescription Drug Monitoring Program website checked. 01/13/23 - How much of the medication are you taking a day? PRN - Last dose of medication? LAST NIGHT - Last drug screen appropriate 09/03/22 Discussion: Patient presents in follow up for medication refills. Low back pain continues with radiating pain to the right lower extremity with weakness. Myelogram done last month and she has seen Dr. Merlos. She is scheduled to have surgery 06/10/23 at [facility]. She continues tylenol #3 as needed twice [...] muscle tightness and pressure. With her recent SC and hypotension we will avoid further medication. [...] comorbidities. Patient suffered a myocardial infarction and [place] and continues to be weak and hypotensive. [...] days. 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 Numbness and tingling in feet causes falls. After right knee replacement there was an increase in lateral thigh/knee numbness and more falls. Her neurologist placed her on permanent restrictions due to gait instability and she is now on disability. She had worked at [employer] for over 20 years. Gabapentin 300mg TID has been her dose for 5 plus years. She was originally treated by Dr Araujo until his skilled nursing and given oxycodone. Dr Cabrera assumed care until recently. He no longer prescribes pain medication. Her pcp placed her on Tylenol #3 at bedtime, which provides minimal relief. She really doesn't question additional pain medication and is open to a treatment plan that would include reduction of medication use. We discussed increasing gabapentin to 600mg tid and will do so if her furnace operator oil or gas is ok with this, she is seeing [...] at this level. Test Conclusions PHQ-9 Score: 7 Date: 07/26/22 BPI Score: Date: MiDAS Score: Date: SOAPP-R Score: 4 LOW Date:07/26/22 Past Medical/Surgical History Reported: Injection/Nerve blocks, Deep muscle stimulation, Physical therapy, Which brand of pacemaker/defibrillator do you have? BiotroniBridgeLux, Please list all illnesses/conditions you have been diagnosed with: Two pinched nerves in my lower back neuropathy total right knee replacement heart disease, and Please list all surgeries: Right ankle 1988 right knee scope 4x 2018 total right knee replacement carpal tunnel both hands 2004 and just on the right 2012 partial hysterectomy 2009 stent in my heart 2018 heart ablation 2019 [id number]. Medical: Currently wearing eyeglasses, orthopedic history Left [...] 1 CAPSULE BY MOUTH DAILY, 30 days, 0 refills - metFORMIN HCl 1000 MG Oral [...] to heal. Physical Findings - Vitals taken 03/27/2023 09:48 am BP-Sitting L 86/62 mmHg Pulse Rate-Sitting 80 bpm Temp-Temporal 96.6 F Height 65 in Weight 134 lbs Body Mass Index 22.3 kg/m2 Body Surface Area 1.7 m2 Pain Level 6 Pain Level Note LOW BACK DOWN RIGHT LEG Oxygen Saturation 99 % Psychiatric: Psychiatric: Value PHQ9 score: 7 Constitutional: Well developed. Well nourished. In no [...] Testing: Questionnaires PHQ-9: Value SOAPP-R: total score 4 Assessment - Bulging lumbar disc [M51.26 - [...] syndrome [G89.4 - Chronic pain syndrome] - terminal manager use of opiate analgesic [Z79.891 - correction (current) use of opiate analgesic] Therapy - Clinical summary provided to patient. Patient understands treatment plan. Counseling/Education - Pill Count: three TYLENOL #3 Discussed Will continue chronic opioid [...] in about 6 weeks. Plan StartCited - Spinal stenosis, lumbar region with neurogenic claudication Acetaminophen-Codeine 300-30 MG tablet 1 po bid prn/ max 2 per day, 30 days, 0 refills EndCited Practice Management Use [...] but may be subject to typographical or scientific systems analyst errors. Verify all diagnoses, medications, dosages, and patient instructions with patient and/or the originator of this document. Care Team - DAVID SHETTY- - Pain Management Health Reminders - Assess BMI satisfied 03/27/2023. - Assess Need for CT Lung Screen satisfied 03/27/2023. - Assess Tobacco Use satisfied 03/27/2023. - Depression Screening satisfied 03/27/2023.
--- OUTSIDE RECORDS SUMMARY | 2024-06-10 15:08 | XMS_ITS | Clinical Summary ---
Author Organization [facility] Address [address] [place] [address] Phone Care Team Providers Care Emergency Medical Technician Basic Name Role Phone EUFEMIA SYDNEY DENNISE Vita Unavailable [phone] CAMPOS WHEELER MD Primary Care Provider [phone] Reason for Visit and Chief Complaint The Chief Complaint is: HAS NOT HAD SURGERY YET, WAS PUT OFF DUE TO BONE INFECTION IN FOOT ~HAS HADAMPUTATION ON RIGHT FOOT ~DOESN'T WANT TO DO BACK SURGERY UNTIL BONE INFECTION IS CLEARED UP Problems Includes: Problems addressed during this encounter and other active Problems All Visits Onset Date Resolved Date Provider Condition S tatus Coronary Artery Disease Unknown JANAE BIRD FASHION CONSULTANT SALES-FPA, BUTTON FACING MACHINE OPERATOR-BC Active Last Documented On 3 10:16AM ; [facility] Diabetes Mellitus Unknown JANAE BIRD APR N-FPA, BUTTON FACING MACHINE OPERATOR-BC Active Last Documented On 3 10:18AM ; [facility] Hypothyroidism Unknown JANAE BIRD FASHION CONSULTANT SALES-F PA, BUTTON FACING MACHINE OPERATOR-BC Active Last Documented On 3 10:18AM ; [facility] Plan of Treatment Education and Decision Aids were provided during visit for: Pill Count: seven TYLENOL #3 Last Documented On 4 1:36PM ; [facility] Assessments Includes: Assessments from this encounter Findings - Bulging lumbar disc [M51.26 - Other intervertebral disc displacement, lumbar region] - Last Documented On 10/08/2023 9:10AM ; [facility] - Lumbar spondylosis with radiculopathy [M47.26 - Other spondylosis with radiculopathy, lumbar region] - Last Documented On 10/08/2023 9:10AM ; [facility] - Lumbar stenosis with neurogenic claudication [M48.062 - Spinal stenosis, lumbar region with neurogenic claudication] - Last Documented On 10/08/2023 9:10AM ; [facility] - Diabetic polyneuropathy [E13.42 - Other specified diabetes mellitus with diabetic polyneuropathy] - Last Documented On 10/08/2023 9:10AM ; [facility] - Myalgia [M79.18 - Myalgia, other site] - Last Documented On 10/08/2023 9:10AM ; [facility] - Chronic pain syndrome [G89.4 - Chronic pain syndrome] - Last Documented On 10/08/2023 9:10AM ; [facility] - 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 [Z79.891 - nursing home (current) use of opiate analgesic] - Last Documented On 10/08/2023 9:10AM ; [facility] Instructions Includes: Instructions from this encounter Education and Decision Aids were provided during visit for: Pill Count: seven TYLENOL #3 Last Documented On 4 1:36PM ; [facility] Medical Equipment - Implanted Devices Includes: Current Devices No Medical Equipment Recorded Medications Includes: Medications discussed during this encounter and other current Medications Discontinued / Stopped on this date DENNISE GRIMES on 10/03/2023 Linzess 145 MCG Oral Capsule Provider: DENNISE GRIMES Diagnosis: Last Documented On 10/07/2023 1:35PM By Laura RIVERA ; [facility] Vascepa 1 GM Oral Capsule Provider: Diagnosis: Last Documented On 10/07/2023 1:35PM By Laura RIVERA ; [facility] Current Medications (continue as prescribed) Linzess 145 MCG Oral Capsule 11/03/2023 Provider: ISIDORO SCHMIDT Diagnosis: Constipation, un specified TAKE 1 CAPSULE BY MOUTH DAILY Last Documented On 4 1:40PM By JANAE CHAUDHRY ; [facility] tiZANidine HCl 2 MG Oral Tablet 10/24/2023 Provider: JANAE G PELON FASHION CONSULTANT SALES-FPA, BUTTON FACING MACHINE OPERATOR-BC Diagnosis: TAKE 1 TABLET BY MOUTH 2 TO 3 TIMES PER DAY NEEDED Last Documented On 4 10:26AM By JANAE BIRD [facility] ; [facility] Acetaminophen-Codeine 300-30 MG Oral Tablet 10/08/2023 Provider: DENNISE HERNANDEZ Diagnosis: Spinal stenosis, lumbar region with neurogenic claudication 1 po bid prn/ max 2 per day Last Documented On 4 9:26AM By [facility] ; [facility] Ozempic (0.25 or 0.5 MG/DOSE ) 2 MG/3ML Subcutaneous Solution Pen-injector 10/02/2023 Provider: Diagnosis: Last Documented On 10/07/2023 1:34PM By Laura RIVERA ; [facility] Ubrelvy 100 MG Oral Tablet 09/18/2023 Provider: Diagnosis: Last Documented On 10/07/2023 1:35PM By Laura RIVERA ; [facility] Qulipta 60 MG Oral Tablet 09/11/2023 Provider: Diagnosis: Last Documented On 10/07/2023 1:34PM By Laura RIVERA ; [facility] tiZANidine HCl 2 MG Oral Tablet 08/13/2023 Provider: JANAE BIRD FASHION CONSULTANT SALES-FPA, BUTTON FACING MACHINE OPERATOR-BC Diagnosis: TAKE 1 TABLET BY MOUTH 2 TO 3 TIMES PER DAY NEEDED Last Documented On 4 12:03PM By JANAE BIRD [facility] ; [facility] Gentamicin Sulfate 0.1% External Ointment 07/11/2023 Provider: JW MARIN DPM Diagnosis: Last Documented On 10/07/2023 1:33PM By Laura RIVERA ; [facility] Gabapentin 600 MG Oral Tablet 06/23/2023 Provider: DENNISE GRIMES 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 TAKE 1 TABLET BY MOUTH THREE TIMES DAILY Last Documented On 4 8:40AM By DENNISE GRIMES ; [facility] DULoxetine HCl 60 MG Oral Capsule Delayed Release Particles 06/23/2023 Provider: DENNISE BarnesBC Diagnosis: Chronic pain syn drome TAKE 1 CAPSULE BY MOUTH DAILY Last Documented On 8:40AM By DENNISE FALL [facility]- ; [facility] Santyl 250 UNIT/GM External Ointment 06/06/2023 Prov ider: JW MARIN DPM Diagnosis: Last Documented On 10/07/2023 1:34PM By Laura RIVERA ; [facility] Bumetanide 1 MG Oral Tablet 09/13/2022 Provider: Diagnosis: Last Documented On 10:28AM By Laura RIVERA ; [facility] Kerendia 20 MG Oral Tablet 03/03/2022 Provider: Diagnosis: Last Documented On 03/14/2022 3:11PM By Laura RIVERA ; [facility] Brilinta 90 MG Oral Tablet 02/19/2022 Provider: Diagnosis: Last Documented On 03/14/2022 3:12PM By Laura RIVERA ; [facility] Carvedilol 6.25 MG Oral Tablet 01/26/2022 Provider: Diagnosis: Last Documented On 03/14/2022 3:06PM By Laura RIVERA ; [facility] Entresto 24-26 MG Oral Tablet 01/25/2022 Provider: Diagnosis: Last Documented On 03/14/2022 3:13PM By Laura RIVERA ; [facility] Jardiance 25 MG Oral Tablet 09/03/2021 Provider: Diagnosis: Last Documented On 09/20/2021 9:45AM By Laura RIVERA ; [facility] Aspirin 81 MG Oral Capsule 08/21/2021 Provider: Diagnosis: Last Documented On 08/21/2021 1:34PM By Laura RIVERA ; [facility] Nitroglycerin 0.4 MG Sublingual Tablet Sublingual 09/2021 Provider: Diagnosis: Last Documented On 08/21/2021 1:36PM By Laura RIVERA ; [facility] metFORMIN HCl 1000 MG Oral Tablet 08/20/2021 Provide r: CAMPOS WHEELER MD Diagnosis: Last Documented On 08/21/2021 1:30PM By Laura RIVERA ; [facility] Levothyroxine Sodium 100 MCG Oral Tablet 08/20/2021 Provider: CAMPOS WHEELER MD Diagnosis: Last Documented On 08/21/2021 1:30PM By Laura RIVERA ; [facility] Topiramate 25 MG Oral Tablet 2021 Provider: Diagnosis: Last Documented On 08/21/2021 1:31PM By Laura RIVERA ; [facility] Atorvastatin Calcium 40 MG Oral Tablet 08/09/2021 Pr ovider: CAMPOS WHEELER MD Diagnosis: Last Documented On 08/21/2021 1:31PM By Laura RIVERA ; [facility] Past Medications on file Bumetanide 1 MG Oral Tablet 05/23/2022 - 06/22/2022 Pr ovider: Diagnosis: Last Documented On 10:20AM By [facility] ; [facility] Medications Administered Includes: Administered Medications from this encounter No Administered Medications Recorded Vital Signs Includes: Vital Signs from this encounter Vital Name 10/07/2023 01:28P Blood Pressure Sitting R 90/60 Pulse Rate-Sitting (bpm) 90 Temp-Temporal 97.3 Height (in) 65 Weight (lb) 126 Body Mass Index 21 Body Surface Area 1.6 Pain Level 7 Oxygen Saturation (%) 98 Last Documented: On 10/07/2023 1:32PM ; [facility] Results Includes: Results discussed during this encounter [...] is scheduled to have surgery 06/10/23 at [facility]. She continues tylenol #3 as needed [...] muscle tightness and pressure. With her recent CT and hypotension we will avoid further medication. [...] comorbidities. Patient suffered a myocardial infarction and December and continues to be weak and hypotensive. [...] days. 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 Numbness and tingling in feet causes falls. After right knee replacement there was an increase in lateral thigh/knee numbness and more falls. Her neurologist placed her on permanent restrictions due to gait instability and she is now on disability. She had worked at [employer] for over 20 years. Gabapentin 300mg TID has been her dose for 5 plus years. She was originally treated by Dr Araujo until his long-term and given oxycodone. Dr Cabrera assumed care until recently. He no longer prescribes pain medication. Her pcp placed her on Tylenol #3 at bedtime, which provides minimal relief. She really doesn't question additional pain medication and is open to a treatment plan that would include reduction of medication use. We discussed increasing gabapentin to 600mg tid and will do so if her administrative project coordinator is ok with this, she is seeing [...] Updated Tobacco non-user 07/26/2022 Last Documented On 4 1:11PM ; [facility] Difficulty walking 08/21/2021 Last Documented On 4 1:11PM ; [facility] Smoking Status Unknown Procedures and Surgical History Includes: Procedures from this encounter Procedures Code Diagnosis Performing Provider Service L ocation Service Date use of tobacco assessment performed 1000F Last Documented On 4 1:36PM ; [facility] review of medications documented 1160F Last Documented On 4 1:36PM ; [facility] screening for adult depression: impressi on and score seven Last Documented On 4 1:11PM ; [facility] standardized depression screening: posit arcadio for symptoms Last Documented On 4 1:11PM ; [facility] Clinical summary provided to patient Last Documented On 4 1:11PM ; [facility] SOAPP-R: total score 6 Last Documented On 4 1:38PM ; [facility] Surgical History Last Updated Pacemaker 03/14/2022 Last Documented On 4 1:11PM ; [facility] Medical History Includes: Medical History addressed during this encounter Description Last Updated Has a fear of falling. 05/23/2022 Last Documented On 4 1:11PM ; [facility] Has had a fall in the last 12 months. Last Documented On 4 1:11PM ; [facility] History of acute myocardial infarction A ugust 202103/14/2022 Last Documented On 4 1:11PM ; [facility] Currently wearing eyeglasses 03/14/2022 Last Documented On 4 1:11PM ; [facility] Deep muscle stimulation 03/14/2022 Last Documented On 4 1:11PM ; [facility] Injection/Nerve blocks 03/14/2022 Last Documented On 4 1:11PM ; [facility] Physical therapy 03/14/2022 Last Documented On 4 1:11PM ; [facility] Please list all illnesses/co nditions you have been diagnosed with: Two pinched nerves in my lower back neuropathy total right knee replacement heart disease 03/14/2022 Last Documented On 4 1:11PM ; [facility] Please list all surgeries: R ight ankle 1988 right knee scope 4x 2018 total right knee replacement carpal tunnel both hands 2004 and just on the right 2013 partial hysterectomy 2009 stent in my heart 2018 heart ablation 2019 [id number] 03/14/2022 Last Documented On 4 1:11PM ; [facility] Severe Pain 03/14/2022 Last Documented On 4 1:11PM ; [facility] Uses a cane for support 03/14/2022 Last Documented On 4 1:11PM ; [facility] Which brand of pacemaker/defibrillator d o you have? Biotronik 03/14/2022 Last Documented On 4 1:11PM ; [facility] Family History Includes: Family History addressed during this encounter Description Last Updated Family history of Arthritis 03/14/2022 Last Documented On 4 1:11PM ; [facility] Family history of ischemic heart disease 03/14/2022 Last Documented On 4 1:11PM ; [facility] Family history of stroke/paralysis 03/14 Last Documented On 4 1:11PM ; [facility] Paternal history of Arthritis 03/14/2022 Last Documented On 4 1:11PM ; [facility] Paternal history of family history of is chemic heart disease 03/14/2022 Last Documented On 4 1:11PM ; [facility] Review of Systems Includes: Review of Systems [...] Diagnosis PAIN MANAGEMENT FOLLOW UP DENNISE FALL ANP-[facility] 024 1:03PM 1:58PM Chronic Pain Syndrome,Bulging Intervertebral Disc Lumbar,Polyneurop athy Diabetic,Spinal Stenosis Lumbar with Neurogenic Claudication,Spon dylosis with Radiculopathy Lumbar Region,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 Use of Opiate Analgesic,Myalgia , Other Site (M79.18) Insurance Includes: Active Insurance Policies Plan Name Member ID Group # Subscriber Relationship Effect arcadio Dates 1 - MEDICARE PART A CLAIMS/NGS [id number] [employer] 2 - MEDICAID OF [place] MEDICARE SECOND [id number] [employer] Clinical Notes Includes: Clinical Notes from this encounter * Progress note Date Encounter Last Documented by 10/07/2023 PAIN MANAGEMENT FOLLOW UP Last d ocumented on 10/08/2023; 9:10 AM, DENNISE FALL ANP-; [facility] Active Problems & Conditions - [...] is scheduled to have surgery 06/10/23 at [facility]. She continues tylenol #3 as needed [...] muscle tightness and pressure. With her recent CT and hypotension we will avoid further medication. [...] comorbidities. Patient suffered a myocardial infarction and [place] and continues to be weak and hypotensive. [...] days. 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 Numbness and tingling in feet causes falls. After right knee replacement there was an increase in lateral thigh/knee numbness and more falls. Her neurologist placed her on permanent restrictions due to gait instability and she is now on disability. She had worked at [employer] for over 20 years. Gabapentin 300mg TID has been her dose for 5 plus years. She was originally treated by Dr Araujo until his long-term and given oxycodone. Dr Cabrera assumed care until recently. He no longer prescribes pain medication. Her pcp placed her on Tylenol #3 at bedtime, which provides minimal relief. She really doesn't question additional pain medication and is open to a treatment plan that would include reduction of medication use. We discussed increasing gabapentin to 600mg tid and will do so if her administrative project coordinator is ok with this, she is seeing [...] Which brand of pacemaker/defibrillator do you have? [email or web address], Please list all illnesses/conditions you have been diagnosed with: Two pinched nerves in my lower back neuropathy total right knee replacement heart disease, and Please list all surgeries: Right ankle 1988 right knee scope 4x 2018 total right knee replacement carpal tunnel both hands 2003 and just on the right 2012 partial hysterectomy 2009 stent in my heart 2018 heart ablation 2019 [id number]. 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 Plan StartCited - nursing home (current) use of opiate analgesic Lab: PRESCRIBED [...] but may be subject to typographical or personal carer errors. Verify all diagnoses, medications, dosages, and patient instructions with patient and/or the originator of this document. Care Team - DAVID SHETTY- - Pain Management Health Reminders - Assess BMI satisfied 10/07/2023. - Assess Need for CT Lung Screen satisfied 10/07/2023. - Assess Tobacco Use satisfied 10/07/2023. - Depression Screening satisfied 10/07/2023.
--- OUTSIDE RECORDS SUMMARY | 2024-06-10 15:08 | XMS_ITS | Clinical Summary ---
Author Organization [facility] Address [address] [place] [address] Phone Care Team Providers Care Director Medical Writing Name Role Phone EUFEMIA GRIMES, DENNISE Gorman Unavailable [phone] CAMPOS WHEELER MD Primary Care Provider [phone] Reason for Visit and Chief Complaint RX ISSUE/REFILL Problems Includes: Problems addressed during this encounter and other active Problems All Visits Onset Date Resolved Date Provider Condition S tatus Coronary Artery Disease Unknown JANAE Shane PELON WELDER 2ND SHIFT-FPA, RADIATION ONCOLOGY THERAPIST-BC Active Last Documented On 3 10:16AM ; [facility] Diabetes Mellitus Unknown JANAE Shane PELON APR N-FPA, RADIATION ONCOLOGY THERAPIST-BC Active Last Documented On 3 10:18AM ; [facility] Hypothyroidism Unknown JANAE Shane PELON WELDER 2ND SHIFT-F PA, RADIATION ONCOLOGY THERAPIST-BC Active Last Documented On 3 10:18AM ; [facility] Plan of Treatment No Plan of Treatment Recorded Assessments Includes: Assessments from this encounter No Assessments Recorded Medical Equipment - Implanted Devices Includes: Current Devices No Medical Equipment Recorded Medications Includes: Medications discussed during this encounter and other current Medications Discontinued / Stopped on this date DENNISE GRIMES on 03/27/2023 Acetaminophen-Codeine 300-30 MG Oral Tablet Provider: DENNISE GRIMES Diagnosis: Spinal stenosis, lumbar region with neurogenic claudication Last Documented On 4 4:06PM By DENNISE GRIMES ; [facility] New / Renewed during this visit DENNISE GRIMES on 06/12/2023 Acetaminophen-Codeine 300-30 MG Oral Tablet Provider: DENNISE HERNANDEZ 30 day supply: 60 tablet, 0 refills Diagnosis: Spinal stenosis, lumbar region with neurogenic claudication 1 po bid prn/ max 2 per day Pharmacy: [facility] - [address] [facility] , [facility], [phone] - Last Documented On 4 10:00AM [facility] ; [facility] Current Medications (continue as prescribed) Linzess 145 MCG Oral Capsule 11/03/2023 Provider: ISIDORO SCHMIDT Diagnosis: Constipation, un specified TAKE 1 CAPSULE BY MOUTH DAILY Last Documented On 4 1:40PM [facility] ; [facility] tiZANidine HCl 2 MG Oral Tablet 10/24/2023 Provider: JANAE HENNING RADIATION ONCOLOGY THERAPIST-CHRISTOFER Diagnosis: TAKE 1 TABLET BY MOUTH 2 TO 3 TIMES PER DAY NEEDED Last Documented On 4 10:26AM By JANAE BIRD [facility] ; [facility] Acetaminophen-Codeine 300-30 MG Oral Tablet 10/08/2023 Provider: DENNISE HERNANDEZ Diagnosis: Spinal stenosis, lumbar region with neurogenic claudication 1 po bid prn/ max 2 per day Last Documented On 4 9:26AM [facility] ; [facility] Ozempic (0.25 or 0.5 MG/DOSE ) 2 MG/3ML Subcutaneous Solution Pen-injector 10/02/2023 Provider: Diagnosis: Last Documented On 10/07/2023 1:34PM By Laura RIVERA ; [facility] Ubrelvy 100 MG Oral Tablet 09/18/2023 Provider: Diagnosis: Last Documented On 10/07/2023 1:35PM By Laura RIVERA ; [facility] Qulipta 60 MG Oral Tablet 09/11/2023 Provider: Diagnosis: Last Documented On 10/07/2023 1:34PM By Laura RIVERA ; [facility] tiZANidine HCl 2 MG Oral Tablet 08/13/2023 Provider: JANAE BIRD APRN-FPA, [facility] Diagnosis: TAKE 1 TABLET BY MOUTH 2 TO 3 TIMES PER DAY NEEDED Last Documented On 4 12:03PM By JANAE BIRD [facility] ; [facility] Gentamicin Sulfate 0.1% External Ointment 07/11/2023 Provider: JW MARIN DPM Diagnosis: Last Documented On 10/07/2023 1:33PM By Laura RIVERA ; [facility] Gabapentin 600 MG Oral Tablet 06/23/2023 Provider: DENNISE FALL [facility] 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 TAKE 1 TABLET BY MOUTH THREE TIMES DAILY Last Documented On 4 8:40AM By [facility] ; [facility] DULoxetine HCl 60 MG Oral Capsule Delayed Release Particles 06/23/2023 Provider: DENNISE HERNANDEZ [facility] Diagnosis: Chronic pain syn drome TAKE 1 CAPSULE BY MOUTH DAILY Last Documented On 4 8:40AM By [facility] ; [facility] Santyl 250 UNIT/GM External Ointment 06/06/2023 Prov ider: JW MARIN DPM Diagnosis: Last Documented On 10/07/2023 1:34PM By Laura RIVERA ; [facility] Bumetanide 1 MG Oral Tablet 09/13/2022 Provider: Diagnosis: Last Documented On 3 10:28AM By Laura RIVERA ; [facility] Kerendia 20 MG Oral Tablet 03/03/2022 Provider: Diagnosis: Last Documented On 03/14/2022 3:11PM By Laura RIVERA ; [facility] Brilinta 90 MG Oral Tablet 02/19/2022 Provider: Diagnosis: Last Documented On 03/14/2022 3:12PM By Laura RIVERA ; [facility] Carvedilol 6.25 MG Oral Tablet 01/26/2022 Provider: Diagnosis: Last Documented On 03/14/2022 3:06PM By Laura RIVERA ; [facility] Entresto 24-26 MG Oral Tablet 01/25/2022 Provider: Diagnosis: Last Documented On 03/14/2022 3:13PM By Laura RIVERA ; [facility] Jardiance 25 MG Oral Tablet 09/03/2021 Provider: Diagnosis: Last Documented On 09/20/2021 9:45AM By Laura RIVERA ; [facility] Aspirin 81 MG Oral Capsule 08/21/2021 Provider: Diagnosis: Last Documented On 08/21/2021 1:34PM By Laura RIVERA ; [facility] Nitroglycerin 0.4 MG Sublingual Tablet Sublingual 09/2021 Provider: Diagnosis: Last Documented On 08/21/2021 1:36PM By Laura RIVERA ; [facility] metFORMIN HCl 1000 MG Oral Tablet 08/20/2021 Provide r: CAMPOS WHEELER MD Diagnosis: Last Documented On 08/21/2021 1:30PM By Laura RIVERA ; [facility] Levothyroxine Sodium 100 MCG Oral Tablet 08/20/2021 Provider: CAMPOS WHEELER MD Diagnosis: Last Documented On 08/21/2021 1:30PM By Laura RIVERA ; [facility] Topiramate 25 MG Oral Tablet 2021 Provider: Diagnosis: Last Documented On 08/21/2021 1:31PM By Laura RIVERA ; [facility] Atorvastatin Calcium 40 MG Oral Tablet 08/09/2021 Pr ovider: CAMPOS WHEELER MD Diagnosis: Last Documented On 08/21/2021 1:31PM By Laura RIVERA ; [facility] Past Medications on file Bumetanide 1 MG Oral Tablet 05/23/2022 - 06/22/2022 Pr ovider: Diagnosis: Last Documented On 3 10:20AM By JANAE TURNER ; [facility] Medications Administered Includes: Administered Medications from this encounter No Administered Medications Recorded Results Includes: Results discussed during this encounter No Results Recorded For Specified Dates History of Present Illness Includes: History of Present Illness from this encounter No History of Present Illness Recorded Social History Description Last Updated Tobacco non-user 07/26/2022 Last Documented On 4 3:32PM ; [facility] Difficulty walking 08/21/2021 Last Documented On 4 3:32PM ; [facility] Smoking Status Unknown Procedures and Surgical History Surgical History Last Updated Pacemaker 03/14/2022 Last Documented On 4 3:32PM ; [facility] Medical History Includes: Medical History addressed during this encounter Description Last Updated Has a fear of falling. 05/23/2022 Last Documented On 4 3:32PM ; [facility] Has had a fall in the last 12 months. Last Documented On 4 3:32PM ; [facility] History of acute myocardial infarction A ugust 202103/14/2022 Last Documented On 4 3:32PM ; [facility] Currently wearing eyeglasses 03/14/2022 Last Documented On 4 3:32PM ; [facility] Deep muscle stimulation 03/14/2022 Last Documented On 4 3:32PM ; [facility] Injection/Nerve blocks 03/14/2022 Last Documented On 4 3:32PM ; [facility] Physical therapy 03/14/2022 Last Documented On 4 3:32PM ; [facility] Please list all illnesses/co nditions you have been diagnosed with: Two pinched nerves in my lower back neuropathy total right knee replacement heart disease 03/14/2022 Last Documented On 4 3:32PM ; [facility] Please list all surgeries: R ight ankle 1988 right knee scope 4x 2018 total right knee replacement carpal tunnel both hands 2004 and just on the right 2012 partial hysterectomy 2009 stent in my heart 2018 heart ablation 2019 [id number] 03/14/2022 Last Documented On 4 3:32PM ; [facility] Severe Pain 03/14/2022 Last Documented On 4 3:32PM ; [facility] Uses a cane for support 03/14/2022 Last Documented On 4 3:32PM ; [facility] Which brand of pacemaker/defibrillator d o you have? Biotronik 03/14/2022 Last Documented On 4 3:32PM ; [facility] Family History Includes: Family History addressed during this encounter No Family History Recorded Review of Systems Includes: Review of Systems from this encounter No Review of Systems Recorded Mental Status Includes: Mental Status from this encounter No Mental Status Recorded Functional Status Includes: Functional Status from this encounter No Functional Status Recorded Physical Exam Includes: Physical Exam from this encounter No Physical Exam Recorded Allergies Includes: Active Allergies No Known Allergies Encounters Encounter Provider Location Date Check-In Time Check-Out Time Diagnosis RX ISSUE/REFILL DENNISE GRIMES 06/12/2023 3:32PM 11:59PM Insurance Includes: Active Insurance Policies Plan Name Member ID Group # Subscriber Relationship Effect arcadio Dates 1 - MEDICARE PART A CLAIMS/NGS [id number] [email or web address] 2 - MEDICAID [place] MEDICARE SECOND [id number] [email or web address] Clinical Notes Includes: Clinical Notes from this encounter * Progress note Date Encounter Last Documented by 06/12/2023 RX ISSUE/REFILL Last documented on 06/12/2023; 4:07 PM, DENNISE GRIMES; [facility] Active Problems & [...] Which brand of pacemaker/defibrillator do you have? Biotronik, Please list all illnesses/conditions you have been diagnosed with: Two pinched nerves in my lower back neuropathy total right knee replacement heart disease, and Please list all surgeries: Right ankle 1988 right knee scope 4x 2018 total right knee replacement carpal tunnel both hands 2004 and just on the right 2013 partial hysterectomy 2009 stent in my heart 2018 heart ablation 2019 [id number]. Medical: Currently wearing eyeglasses, orthopedic history Left [...]
--- OUTSIDE RECORDS SUMMARY | 2024-06-10 15:08 | XMS_ITS | Clinical Summary ---
Author Organization [facility] Facility Address [address] [place] [address] Care Team Providers Care Digital Photographer Name Role Phone Rehan Mann PA-C Primary Care Provider [phone] Social History Tobacco Use Types Packs/Day Years Used Date Smoking Tobacco: Never Assessed Comments Unknown Sex and Gender Information Value Date Recorded Sex Assigned at Not on file Legal Sex Female 11:08 AM EDT Gender Identity Not on file Sexual Orientation Not on file Last Filed Vital Signs Vital Sign Reading Time Taken Comments Blood Pressure 90/60 01/06/2024 2:49 PM CDT Pulse 62 01/06/2024 2:49 PM CDT Temperature 36.1 ??C (97 ??F) 01/06/2024 2:49 PM CDT Respiratory Rate 18 01/06/2024 2:49 PM CDT Oxygen Saturation 98% 01/06/2024 2:49 PM CDT Inhaled Oxygen Concentration - - Weight 55.1 kg (121 lb 6.4 oz) 01/06/2024 2:49 P M CDT Height - - Body Mass Index - - Plan of Treatment Upcoming Encounters Date Type Department Care Team (Late st Contact Info) Description 01/11/2025 12:30 PM CDT Office Visit [facility] [address] [facility] [address] [place] [address] Sergey Everett DO [address] [place] [address] Health Maintenance Due Date Last Done Comments Breast Cancer Screening 1972 Pneumococcal Vaccine: Pediat rics (0 to 5 Years) and At-Risk Patients (6 to 64 Years) (1 of 2 - PCV) 1978 Hepatitis B Vaccine (1 of 3 - 19+ 3-dose series) 08/19 Colorectal Cancer Screening: Annual FOBT 2021 Colorectal Cancer Screening: Colonoscopy 2021 Colorectal Cancer Screening: Sigmoidoscopy 2021 Diabetes: Ophthalmology Exam 08/14/2023 Diabetes: Pedal Pulse Checked 08/14/2023 Diabetes: Sensory Foot Exam 08/14/2023 Diabetes: Visual Foot Exam 08/14/2023 Influenza Vaccine (#1) 2024 Diabetes: Hemoglobin A1C 03/06/2024 12/05/2023 Insurance MEDICARE MEDICAID [place] Care Teams Digital Photographer Relationship Specialty Start Date End Date Rehan Mann PA-C [address] [place] [address] PCP - General Family Medicine 08/07/23
--- OUTSIDE RECORDS SUMMARY | 2024-06-10 15:08 | XMS_ITS | Clinical Summary ---
Author Organization [facility] [address] Address [address] [place] [address] Care Team Providers Care Mold Sprayer Name Role Phone Evelina Sifuentes MD Primary Care Provider [phone] Active Problems Patient Care Coordination No te Formatting of this note migh t be different from the original. Dr. Petra Tobar Head Grease Maker - [facility] Heart and Vascular Dr. Eneida Collier - DPM - [facility] Dr. 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 Gender Identity Not on file Sexual Orientation Not on file Plan of Treatment Health Maintenance Due Date Last Done Comments PNEUMOCOCCAL VACCINE 0-64 YEARS (1 of 2 - PCV) 979 DIABETES ANNUAL FOOT EXAM 1990 DIABETES ANNUAL RETINAL EXAM 1990 DIABETES HBA1C Q 6 MONTHS 1990 DIABETES MICROALBUMIN ANNUAL SCREEN 1990 LDL CHOLESTEROL ANNUAL 1990 DTAP/TDAP/TD VACCINES (1 - Tdap) 08/20/1991 HEPATITIS B VACCINES (1 of 3 - 19+ 3-dose series) 07/1991 CERVICAL CANCER SCREENING 2002 BREAST CANCER SCREENING 2012 COLORECTAL SCREENING 2017 Colorectal Cancer Screening 2017 FIT-DNA Q 3 years 2017 FIT/FOBT Q 1 year 2017 Flex Sig/CT Colonography Q 5 years 2017 ZOSTER VACCINE (1 of 2) 2022 INFLUENZA VACCINE (#1) 2023 Care Teams Mold Sprayer Relationship Specialty Start Date End Date Evelina Sifuentes MD [address] [place] [address] PCP - General Internal Medicine 05/20/23
--- OUTSIDE RECORDS SUMMARY | 2024-06-10 15:08 | XMS_ITS | CONTINUITY OF CARE DOCUMENT ---
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 Drug Eluting active Hussain marc MD DM - type 2 active Hussain Escalona MD Hypercholesterolemia active Hussain marc MD Palpitations active Hussain Escalona MD Snoring active Hussain Escalona MD Shortness of breath active Hussain Escalona MD Chest pain, recurrent active Hussain garza MD LISHA active Hussain Escalona MD PAD - BLE with claudication active Hussain Escalona MD Headache active Hussain Escalona MD Fatigue active Hussain Escalona MD S/P Biotronik (MRI Safe) Loo p BioMonitor III completed - Ponce Garcia VENTRICULAR TACHYCARDIA active Petra joseph MD SVT active Petra Tobar MD Arthritis - osteo; R leg active Hussain bliss MD Hypothyroidism active Hussain Escalona MD Diabetes Mellitus, Type II, uncontrolled active Hussain Escalona MD Personal history of COVID-19 , 06/2021 active Hussain Escalona MD CHF, acute, systolic active Colby Soriano Cardiomyopathy active Colby Obando MD Lower extremity edema, bilateral active Johnathon Obando MD Mitral regurgitation active Hussain marc MD Cardiology examination active Hussain bhandari MD Hypotension active Hussain Escalona MD Preop cardiovasc. examination active Dante Escalona MD S/P DC AICD - Biotronik ( MR I Safe) active Micaela Jimenez ENCOUNTERS Date Type Provider Location Encounter Diag nosis - In-person encounter Office Visit Hussain Escalona MD [place] [facility] Preop cardiovasc. examination - In-person encounter Office Visit Hussain Escalona MD [place] [facility] - In-person encounter Office Visit Hussain Escalona MD [place] [facility] - In-person encounter Office Visit Hussain Escalona MD [place] [facility] Hypotension - In-person encounter Office Visit Hussain Escalona MD [facility] Cardiology examination - In-person encounter Office Visit Hussain Escalona MD [place] [facility] - In-person encounter Office Visit Hussain Escalona MD [facility] - In-person encounter Office Visit Hussain Escalona MD [place] [facility] Mitral regurgitation - In-person encounter Office Visit Colby Obando MD [place] [facility] CHF, acute, systolicCardiomyopathyLower extremity edema, bilateral - In-person encounter Office Visit Hussain Escalona MD [place] [facility] - In-person encounter Office Visit Hussain Escalona MD [place] [facility] Personal history of COVID-19, 06/2021 - In-person encounter Office Visit Hussain Escalona MD [place] [facility] Diabetes Mellitus, Type II, uncontrolled - In-person encounter Office Visit Hussain Escalona MD [place] [facility] - In-person encounter Office Visit Hussain Escalona MD [place] [facility] Hypothyroidism - In-person encounter Office Visit Husasin Escalona MD [place] [facility] Arthritis - osteo; R leg - In-person encounter Office Visit Petra Tobar MD [place] [facility] S/P Biotronik (MRI Safe) Loop BioMonitor III - In-person encounter Office Visit Petra Tobar MD [place] [facility] - In-person encounter Office Visit Hussain Escalona MD [place] [facility] S/P DC AICD - Biotronik ( MRI Safe) - In-person encounter Office Visit Petra [place] [facility] - In-person encounter Office Visit Petra [place] [facility] - In-person encounter Office Visit Hussain Escalona MD [place] [facility] - In-person encounter Office Visit Petra [facility] VENTRICULAR TACHYCARDIASVT - In-person encounter Office Visit Hussain Escalona MD [place] [facility] - In-person encounter Office Visit Hussain Escalona MD [place] [facility] - In-person encounter Office Visit Hussain Escalona MD [facility] - In-person encounter Office Visit Hussain Escalona MD [place] [facility] Fatigue - In-person encounter Office Visit Hussain Escalona MD [place] [facility] - In-person encounter Office Visit Hussain Escalona MD [place] [facility] - In-person encounter Office Visit Hussain Escalona MD [place] [facility] - In-person encounter Office Visit Hussain Escalona MD [place] [facility] OSAPAD - BLE with claudicationHeadache - In-person encounter Office Visit Hussain Escalona MD [place] [facility] HypertensionCADStent ? Drug ElutingDM - type 2HypercholesterolemiaPalpitation sSnoringShortness of breathChest pain, recurrent VITAL SIGNS Date Observation Value Provider Body Mass Index (Ratio) 22.13 kg/m2 Nilesh Escalona MD blood pressure, cuff size regular Ke rri Charli blood pressure, diastolic 80 mm[Hg] Ke rri Charli blood pressure, systolic 124 mm[Hg] Sussy Augustin oxygen saturation, oximetry 99 % Tamra Augustin respiratory rate E&M 12 /min Tamra devlin pulse rate 83 /min Tamra Hwang er weight E&M 133 [lb_av] Tamra Hwang er height E&M 65 [in_i] Tamra Hwang er Body Mass Index (Ratio) 21.46 kg/m2 Meet Braden blood pressure, cuff size regular Fa modesta [place] blood pressure, diastolic 107 mm[Hg] Fa ith [place] blood pressure, systolic 152 mm[Hg] Dane ortega [place] respiratory rate E&M 17 /min Emeli Ofelia iller oxygen saturation, oximetry 99 % [facility] pulse rate 77 /min Emeli [place] weight E&M 129 [lb_av] Emeli [place] height E&M 65 [in_i] [facility] Body Mass Index (Ratio) 24.63 kg/m2 Nilesh Escalona MD pulse rate 82 /min Gertrude Lopez weight E&M 148 [lb_av] Gertrude Lopez blood pressure, cuff size 148regular roni Lopez blood pressure, diastolic 83 mm[Hg] roni Lopez blood pressure, systolic 123 mm[Hg] She cam Lopez oxygen saturation, oximetry 98 % Gertrude Lopez respiratory rate E&M 20 /min Gertrude Lopez height E&M 65 [in_i] Gertrude Lopez Body Mass Index (Ratio) 23.13 kg/m2 Nilesh Escalona MD blood pressure, diastolic 66 mm[Hg] Cely nkLogmiguel angel blood pressure, systolic 80 mm[Hg] Eva Mirandaogmiguel angel blood pressure, diastolic 66 mm[Hg] St naya Ramos blood pressure, systolic 80 mm[Hg] Harry Ramos oxygen saturation, oximetry 97 % Jalyn Ramos respiratory rate E&M 18 /min Jalyn viera pulse rate 91 /min Jalyn Ramos weight E&M 139 [lb_av] Jalyn Ramos height E&M 65 [in_i] Jalyn Ramos Body Mass Index (Ratio) 23.96 kg/m2 Nilesh Escalona MD blood pressure, diastolic 74 mm[Hg] Cely nkLogmiguel angel blood pressure, systolic 103 mm[Hg] Eva kLogmiguel angel blood pressure, diastolic 74 mm[Hg] Shania correia Nando blood pressure, systolic 103 mm[Hg] Max kurtz Nando oxygen saturation, oximetry 97 % Amy Nando respiratory rate E&M 18 /min Amy Nando pulse rate 95 /min Amy Nando weight E&M 144 [lb_av] Amy Nando height E&M 65 [in_i] Amy Nando Body Mass Index (Ratio) 24.79 kg/m2 Nilesh Escalona MD blood pressure, cuff size regular Ke rri Gruenenfelder blood pressure, diastolic 87 mm[Hg] Ke rri Gruenenfelder blood pressure, systolic 107 mm[Hg] Ker ri Gageuenedat oxygen saturation, oximetry 90 % Tamra Gruenenfeldfredrick respiratory rate E&M 14 /min Tamra G ruenenfeldfredrick pulse rate 65 /min Tamra Gruenenfe lder weight E&M 149 [lb_av] Tamra Gruenenfe lder height E&M 65 [in_i] Tamra Gruenenfe lder Body Mass Index (Ratio) 25.12 kg/m2 Nilesh Escalona MD blood pressure, cuff size large Ke rri Gruenenfelder blood pressure, diastolic 70 mm[Hg] Ke rri Gruenenfelder blood pressure, systolic 126 mm[Hg] Ker ri Gruenenfelder oxygen saturation, oximetry 97 % Tamra Gruenenfelder respiratory rate E&M 16 /min Tamra G ruenenfelder pulse rate 101 /min Tamra Gruenenfe lder weight E&M 151 [lb_av] Tamra Gruenenfe lder height E&M 65 [in_i] Tamra Gruenenfe er Body Mass Index (Ratio) 28.79 kg/m2 Nilesh Escalona MD blood pressure, diastolic 84 mm[Hg] Cely nkLog blood pressure, systolic 123 mm[Hg] [facility] blood pressure, diastolic 84 mm[Hg] Reena torres [place] blood pressure, systolic 123 mm[Hg] [facility] maria e [place] oxygen saturation, oximetry 96 % Jannette Alegria pulse rate 97 /min Jannette soriano blood pressure, cuff size large Reena torres [place] weight E&M 173 [lb_av] Jannette soriano respiratory rate E&M 16 /min Crystal carr [place] height E&M 65 [in_i] Jannette soriano blood pressure, diastolic 80 mm[Hg] nkLog blood pressure, systolic 120 mm[Hg] Eva [facility] Body Mass Index (Ratio) 28.29 kg/m2 Kimberly Obando MD blood pressure, cuff size large Ke rri Gruenenfeldfredrick blood pressure, diastolic 80 mm[Hg] Ke rri Gruenenfelder blood pressure, systolic 120 mm[Hg] Ker ri Gruenenfeldfredrick oxygen saturation, oximetry 98 % Tamra Gruenenfeldfredrick respiratory rate E&M 16 /min Tamra G ruenenfelder pulse rate 98 /min Tamra Gruenenfe [facility] weight E&M 170 [lb_av] Tamra Eri [facility] height E&M 65 [in_i] Tamra Eri [facility] Body Mass Index (Ratio) 25.62 kg/m2 Nilesh Escalona MD blood pressure, diastolic 94 mm[Hg] Cely nkLog blood pressure, systolic 124 mm[Hg] Eva kLogic blood pressure, cuff size large Ta ismael Van blood pressure, diastolic 94 mm[Hg] Ta ismael [place] blood pressure, systolic 124 mm[Hg] [facility] oxygen saturation, oximetry 98 % [facility] respiratory rate E&M 20 /min [facility] pulse rate 128 /min [facility] weight E&M 154.0 [lb_av] [facility] height E&M 65 [in_i] Julianne [place] Body Mass Index (Ratio) 31.61 kg/m2 Nilesh Escalona MD blood pressure, diastolic 93 mm[Hg] Cely yoonLogmiguel angel blood pressure, systolic 136 mm[Hg] Eva Mirandaogmiguel angel blood pressure, diastolic 93 mm[Hg] Shania Manning blood pressure, systolic 136 mm[Hg] Rachel Manning oxygen saturation, oximetry 95 % Luisa Manning respiratory rate E&M 16 /min Trey Manning pulse rate 88 /min Luisa denson weight E&M 190 [lb_av] Luisa denson blood pressure, cuff size regular Shania Manning height E&M 65 [in_i] Luisa denson Body Mass Index (Ratio) 31.28 kg/m2 Nilesh Escalona MD blood pressure, diastolic 80 mm[Hg] Cely karrieLogmiguel angel blood pressure, systolic 100 mm[Hg] Eva Rubenogic blood pressure, cuff size large Tr asif Metcalf blood pressure, diastolic 80 mm[Hg] Tr asif Metcalf blood pressure, systolic 100 mm[Hg] Try jt Metcalf oxygen saturation, oximetry 97 % Blake Metcalf pulse rate 102 /min Tryjt Metcalf respiratory rate E&M 16 /min Blake Metcalf weight E&M 188 [lb_av] Blake Metcalf height E&M 65 [in_i] Blake Metcalf Body Mass Index (Ratio) 31.78 kg/m2 Nilesh Escalona MD blood pressure, diastolic 80 mm[Hg] Cely karrieLogmiguel angel blood pressure, systolic 140 mm[Hg] Eva Ruben blood pressure, cuff size regular Kr isflorentino Nate blood pressure, diastolic 80 mm[Hg] Kr isty Nate blood pressure, systolic 140 mm[Hg] Kri stmac [place] blood pressure, resting Yes Tico Nate pulse rate 96 /min Rebeca [place] oxygen saturation, oximetry 98 % Rebeca [place] respiratory rate E&M 18 /min Rebeca Nate weight E&M 191 [lb_av] Rebeca Nate height E&M 65 [in_i] Rebeca Nate Body Mass Index (Ratio) 32.28 kg/m2 Nilesh Escalona MD blood pressure, diastolic 86 mm[Hg] Cely yoonLogmiguel angel blood pressure, systolic 124 mm[Hg] Eva Mirandaogmiguel angel blood pressure, diastolic 86 mm[Hg] Lon Sampson blood pressure, systolic 124 mm[Hg] Leidy stity Adrián oxygen saturation, oximetry 96 % Chastity Adrián pulse rate 97 /min Chastity Adrián weight E&M 194 [lb_av] Chastity Adrián respiratory rate E&M 18 /min Chastit y Adrián height E&M 65 [in_i] [facility] (Ratio) 33.11 kg/m2 Nilesh Escalona MD oxygen saturation, oximetry 98 % Genobeatriz Goldberg pulse rate 96 /min Geno Campbel l blood pressure, diastolic 82 mm[Hg] Cy ntnavarroa Goldberg blood pressure, systolic 128 mm[Hg] Charlotte beatriz Godlberg blood pressure, cuff size regular Cy ntnavarroa Goldberg respiratory rate E&M 16 /min Geno Goldberg weight E&M 199 [lb_av] Geno Campbel l height E&M 65 [in_i] Geno Campbel l Body Mass Index (Ratio) 34.44 kg/m2 Rogers Tobar MD blood pressure, diastolic 95 mm[Hg] Cy ntcintia Goldberg blood pressure, systolic 132 mm[Hg] Charlotte kamia Goldberg blood pressure, cuff size regular Cy ntnavarroa Goldberg pulse rate 101 /min Geno Campbel l oxygen saturation, oximetry 98 % Geno Goldberg respiratory rate E&M 16 /min Geno Goldberg weight E&M 207 [lb_av] Geno Campbel l height E&M 65 [in_i] Geno Campbel l Body Mass Index (Ratio) 34.11 kg/m2 Taew chani Garcia blood pressure, diastolic 90 mm[Hg] To joe Reynoso blood pressure, systolic 132 mm[Hg] Ton sha Reynoso oxygen saturation, oximetry 98 % Tonsha Reynoso respiratory rate E&M 16 /min Tonsha Reynoso pulse rate 86 /min Tonsha Reynoso weight E&M 205 [lb_av] Tonsha Reynoso height E&M 65 [in_i] Tonsha Reynoso Body Mass Index (Ratio) 34.11 kg/m2 Dayo Evans pulse rate 96 /min Tonsha Reynoso blood pressure, diastolic 93 mm[Hg] To nsha Reynoso blood pressure, systolic 130 mm[Hg] Ton sha Reynoso oxygen saturation, oximetry 97 % Tonsha Reynoso respiratory rate E&M 16 /min Tonsha Reynoso weight E&M 205 [lb_av] Tonsha Reynoso height E&M 65 [in_i] Tonsha Reynoso Body Mass Index (Ratio) 33.28 kg/m2 Nilesh Escalona MD pulse rate 116 /min Tonsha Reynoso blood pressure, diastolic 101 mm[Hg] To nsha Reynoso blood pressure, systolic 153 mm[Hg] Ton sha Reynoso oxygen saturation, oximetry 98 % Tonsha Reynoso respiratory rate E&M 18 /min Tonsha Reynoso temperature E&M 97.5 [degF] Tonsha Reynoso temperature site temporal Tonsha Reynoso weight E&M 200 [lb_av] Tonsha Reynoso height E&M 65 [in_i] Tonsha Reynoso Body Mass Index (Ratio) 32.61 kg/m2 Rogers Tobar MD oxygen saturation, oximetry 99 % Chastity Adrián blood pressure, diastolic 84 mm[Hg] Ch astity Adrián blood pressure, systolic 124 mm[Hg] Leidy stity Adrián respiratory rate E&M 16 /min Chastit y Adrián pulse rate 92 /min Chastity Adrián weight E&M 196 [lb_av] Chastity Adrián height E&M 65 [in_i] Chastity Adrián Body Mass Index (Ratio) 33.61 kg/m2 Dayo marie Lambros respiratory rate E&M 16 /min Tonsha Reynoso pulse rate 70 /min Tonsha Reynoso oxygen saturation, oximetry 96 % Tonsha Reynoso blood pressure, diastolic 87 mm[Hg] To nsha Reynoso blood pressure, systolic 122 mm[Hg] Ton [facility] weight E&M 202 [lb_av] Tonsha Reynoso height E&M 65 [in_i] [facility] Reynoso Body Mass Index (Ratio) 33.61 kg/m2 Nilesh Escalona MD blood pressure, cuff size regular Cy ed Goldberg blood pressure, diastolic 70 mm[Hg] Cy ntnavarroa Goldberg blood pressure, systolic 124 mm[Hg] Charlotte beatriz Goldberg oxygen saturation, oximetry 98 % Geno Goldberg respiratory rate E&M 16 /min Geno Goldberg pulse rate 86 /min Geno Tyronebel l weight E&M 202 [lb_av] Geno Campbel l height E&M 65 [in_i] Geno Campbel l Body Mass Index (Ratio) 34.28 kg/m2 Dayo cynthia Lambros pulse rate 81 /min Carisa Block blood pressure, diastolic 80 mm[Hg] Br ittany Block blood pressure, systolic 122 mm[Hg] Yue ttany Block oxygen saturation, oximetry 98 % Carisa Block weight E&M 206 [lb_av] Carisa Block respiratory rate E&M 16 /min Brittan y Block height E&M 65 [in_i] Carisa Block Body Mass Index (Ratio) 34.78 kg/m2 Nilesh Escalona MD blood pressure, diastolic 84 mm[Hg] Fredrick Hollande blood pressure, systolic 130 mm[Hg] Ros BryantSimon oxygen saturation, oximetry 98 % Felicity Negro pulse rate 87 /min Felicity Montes blood pressure, resting Yes Garth BryantSimon weight E&M 209 [lb_av] Felicity Montes height E&M 65 [in_i] Felicity Galoe Body Mass Index (Ratio) 33.28 kg/m2 Nilesh Escalona MD blood pressure, cuff size regular Cy ed Goldberg blood pressure, diastolic 80 mm[Hg] Cy ed Goldberg blood pressure, systolic 134 mm[Hg] Charlotet beatriz Goldberg oxygen saturation, oximetry 97 % Geno Goldberg respiratory rate E&M 16 /min Geno Goldberg pulse rate 87 /min Geno Plasencia l weight E&M 200 [lb_av] Geno Hansenbel l height E&M 65 [in_i] Geno Hansenbel l Body Mass Index (Ratio) 34.31 kg/m2 Nilesh Escalona MD blood pressure, diastolic 80 mm[Hg] Kr isty [place] blood pressure, systolic 120 mm[Hg] Kri sty Nate pulse rate 80 /min Rebeca [place] oxygen saturation, oximetry 98 % Rebeca Nate respiratory rate E&M 17 /min Rebeca Nate blood pressure, cuff size regular Kr isty Nate weight E&M 206.2 [lb_av] Rebeca Nate height E&M 65 [in_i] Rebeca [place] Body Mass Index (Ratio) 34.11 kg/m2 Nilesh Escalona MD blood pressure, diastolic 88 mm[Hg] Da taryn Remy blood pressure, systolic 142 mm[Hg] Dac ia Remy oxygen saturation, oximetry 94 % Debby Remy respiratory rate E&M 16 /min Debby V oss pulse rate 78 /min Debby Remy weight E&M 205 [lb_av] Debby Remy height E&M 65 [in_i] Debby Remy Body Mass Index (Ratio) 34.61 kg/m2 Stan Plurad blood pressure, diastolic 70 mm[Hg] Da taryn Remy blood pressure, systolic 112 mm[Hg] Dac ia Remy oxygen saturation, oximetry 97 % Debby Remy respiratory rate E&M 16 /min Debby V oss pulse rate 74 /min Debby Remy weight E&M 208 [lb_av] Debby Remy height E&M 65 [in_i] Debby Remy Body Mass Index (Ratio) 34.11 kg/m2 Stan Plurad blood pressure, diastolic 110 mm[Hg] Da taryn Remy blood pressure, systolic 178 mm[Hg] Dac ia Remy oxygen saturation, oximetry 95 % Debby Remy respiratory rate E&M 18 /min Debby V oss pulse rate 80 /min Debby Remy weight E&M 205 [lb_av] Debby Remy height E&M 65 [in_i] Debby Remy ALLERGIES Allergy Name Onset Date Reaction Criticality Status IVP DYE High Criticality aborted RESULTS Date Observation Value Provider Reference Range Interpretation Location free thyroxine index 1.8 [facility] 1.2-4.9 triiodothyronine resin uptake 22 % [facility] 24-39 Low thyroxine, serum, total 8.3 ug/dL [facility] 4.5-12.0 thyroid stimulating hormone, serum 2.250 u[IU]/mL [facility] 0.450-4.500 lipoprotein, beta, serum, point, quantitative, calculated 50 mg/dL [facility] 0-99 HDL cholesterol, serum 41 mg/dL [facility] >39 triglyceride, serum, random 345 mg/dL [facility] 0-149 High cholesterol, serum 143 mg/dL [facility] [phone]/09 /02 hemoglobin A1C, blood, as % of total hemoglobin 10.2 % [facility] 4.8-5.6 High basophil count, absolute 0.1 x10E3/uL [facility] 0.0-0.2 Eosinophil Absolute Count 0.3 X10E3/UL [facility] 0.0-0.4 monocyte count, blood, automated 0.6 X10E3/UL [facility] 0.1-0.9 lymphocyte count, blood, automated 3.6 X10E3/UL [facility] 0.7-3.1 High Absolute Neutrophils 5.5 X10E3/UL [facility] 1.4-7.0 basophils as percent of blood leukocytes 1 % [facility] Not Estab. eosinophils as percent of blood leukocytes 3 % [facility] Not Estab. monocytes as percent of blood leukocytes 6 % [facility] Not Estab. lymphocytes as percent of blood leukocytes 35 % [facility] Not Estab. neutrophils as percent of blood leukocytes 55 % [facility] Not Estab. platelet count 334 X10E3/UL [facility] 246-500 0989/09 /02 red blood cell distribution width 12.6 % [facility] 11.7-15.4 mean corpuscular hemoglobin concentration, RBC 33.5 G/DL [facility] 31.5-35.7 mean corpuscular hemoglobin, RBC 29.3 pg [facility] 26.6-33.0 mean corpuscular volume, RBC 87 fL [facility] 79-97 hematocrit, blood 37.3 % [facility] 34.0-46.6 hemoglobin, blood 12.5 g/dL [facility] 11.1-15.9 erythrocyte (RBC) count 4.27 X10E6/UL [facility] 3.77-5.28 leukocyte count, blood 10.1 X10E3/UL [facility] 3.4-10.8 alanine aminotransferase (SGPT), serum 13 1/L [facility] 0-32 aspartate aminotransferase (SGOT), serum 12 1/L [facility] 0-40 alkaline phosphatase, serum 75 1/L [facility] 48-121 bilirubin, serum, total 0.2 mg/dL [facility] 0.0-1.2 albumin/globulin ratio, serum 1.5 [facility] 1.2-2.2 globulin, serum 2.6 [facility] 1.5-4.5 albumin, serum 4.0 g/dL [facility] 3.8-4.8 protein, total, serum 6.6 g/dL [facility] 6.0-8.5 calcium, serum 9.4 mg/dL [facility] 8.7-10.2 carbon dioxide, venous blood 21 mmol/L [facility] 20-29 chloride, serum 100 mmol/L [facility] 96-106 potassium, serum 4.7 mmol/L [facility] 3.5-5.2 sodium, serum 136 mmol/L [facility] [phone]/09 /02 urea nitrogen/creatinine ratio, serum 14 [facility] 9-23 eGFR if 81 mL/min/{1.7 3_m2} [facility] >59 eGFR if not 70 mL/min/{1.7 3_m2} [facility] >59 creatinine, serum 0.96 mg/dL [facility] 0.57-1.00 urea nitrogen, blood 13 mg/dL [facility] 6-24 blood glucose, random 248 mg/dL [facility] 65-99 High free thyroxine index 2.2 [facility] 1.2-4.9 triiodothyronine resin uptake 30 % [facility] 24-39 thyroxine, serum, total 7.3 ug/dL [facility] 4.5-12.0 thyroid stimulating hormone, serum 1.970 u[IU]/mL [facility] 0.450-4.500 hemoglobin A1C, blood, as % of total hemoglobin 10.0 % [facility] 4.8-5.6 High lipoprotein, beta, serum, point, quantitative, calculated 58 mg/dL [facility] 0-99 HDL cholesterol, serum 38 mg/dL [facility] >39 Low triglyceride, serum, random 283 mg/dL [facility] 0-149 High cholesterol, serum 140 mg/dL [facility] [phone]/12 /24 alanine aminotransferase (SGPT), serum 16 1/L [facility] 0-32 aspartate aminotransferase (SGOT), serum 15 1/L [facility] 0-40 alkaline phosphatase, serum 69 1/L [facility] 39-117 bilirubin, serum, total <0.2 mg/dL [facility] 0.0-1.2 albumin/globulin ratio, serum 1.6 [facility] 1.2-2.2 globulin, serum 2.6 [facility] 1.5-4.5 albumin, serum 4.1 g/dL [facility] 3.8-4.8 protein, total, serum 6.7 g/dL [facility] 6.0-8.5 calcium, serum 9.2 mg/dL [facility] 8.7-10.2 carbon dioxide, venous blood 21 mmol/L [facility] 20-29 chloride, serum 100 mmol/L [facility] 96-106 potassium, serum 4.6 mmol/L [facility] 3.5-5.2 sodium, serum 135 mmol/L [facility] [phone]/12 /24 urea nitrogen/creatinine ratio, serum 17 [facility] 9-23 eGFR if 99 mL/min/{1.7 3_m2} [facility] >59 eGFR if not 85 mL/min/{1.7 3_m2} [facility] >59 creatinine, serum 0.82 mg/dL [facility] 0.57-1.00 urea nitrogen, blood 14 mg/dL [facility] 6-24 blood glucose, random 271 mg/dL [facility] 65-99 High activated partial thromboplastin time (aPTT) 25 s [facility] 24-33 prothrombin time (patient) 9.5 s [facility] 9.1-12.0 international normalized ratio (INR) 0.9 [facility] 0.8-1.2 bacteria, urine microscopy None seen [facility] None seen/Few epithelial cells, urine 0-10 [facility] 0 - 10 RBC, Urine None seen /hpf [facility] 0 - 2 WBC urine on microscopy None seen /hpf [facility] 0 - 5 urinalysis, microscopic examination See report [facility] nitrate, urine Negative [facility] Negative urobilinogen, urine, semiquantitative (dipstick) 0.2 [facility] 0.2-1.0 bilirubin, urine Negative [facility] Negative hemoglobin, urine, by dipstick Negative [facility] Negative ketones, urine, by test strip Negative [facility] Negative glucose, urine Negative [facility] Negative protein, urine, semiquantitative (dipstick) Negative [facility] Negative/Tra ce leukocyte esterase, urine, by dipstick Negative [facility] Negative appearance, urine Clear [facility] Clear urine color Yellow [facility] Yellow pH, urine, semiquantitative 6.0 [facility] 5.0-7.5 specific gravity, body fluid 1.010 [facility] 1.005-1.030 basophil count, absolute 0.1 x10E3/uL [facility] 0.0-0.2 Eosinophil Absolute Count 1.0 X10E3/UL [facility] 0.0-0.4 High monocyte count, blood, automated 0.7 X10E3/UL [facility] 0.1-0.9 lymphocyte count, blood, automated 4.4 X10E3/UL [facility] 0.7-3.1 High Absolute Neutrophils 4.5 X10E3/UL [facility] 1.4-7.0 basophils as percent of blood leukocytes 1 % [facility] Not Estab. eosinophils as percent of blood leukocytes 9 % [facility] Not Estab. monocytes as percent of blood leukocytes 7 % [facility] Not Estab. lymphocytes as percent of blood leukocytes 41 % [facility] Not Estab. neutrophils as percent of blood leukocytes 42 % [facility] Not Estab. platelet count 348 X10E3/UL [facility] [phone]/07 /24 red blood cell distribution width 12.3 % [facility] 11.7-15.4 mean corpuscular hemoglobin concentration, RBC 33.6 G/DL [facility] 31.5-35.7 mean corpuscular hemoglobin, RBC 29.5 pg [facility] 26.6-33.0 mean corpuscular volume, RBC 88 fL [facility] 79-97 hematocrit, blood 37.5 % [facility] 34.0-46.6 hemoglobin, blood 12.6 g/dL [facility] 11.1-15.9 erythrocyte (RBC) count 4.27 X10E6/UL [facility] 3.77-5.28 leukocyte count, blood 10.7 X10E3/UL [facility] 3.4-10.8 alanine aminotransferase (SGPT), serum 22 1/L [facility] 0-32 aspartate aminotransferase (SGOT), serum 17 1/L [facility] 0-40 alkaline phosphatase, serum 76 1/L [facility] 39-117 bilirubin, serum, total <0.2 mg/dL [facility] 0.0-1.2 albumin/globulin ratio, serum 1.7 [facility] 1.2-2.2 globulin, serum 2.3 [facility] 1.5-4.5 albumin, serum 3.8 g/dL [facility] 3.8-4.8 protein, total, serum 6.1 g/dL [facility] 6.0-8.5 calcium, serum 9.2 mg/dL [facility] 8.7-10.2 carbon dioxide, venous blood 25 mmol/L [facility] 20-29 chloride, serum 104 mmol/L [facility] 96-106 potassium, serum 4.1 mmol/L [facility] 3.5-5.2 sodium, serum 141 mmol/L [facility] 398-825 9397/07 /24 urea nitrogen/creatinine ratio, serum 16 [facility] 9-23 eGFR if 119 mL/min/{1.7 3_m2} [facility] >59 eGFR if not 104 mL/min/{1.7 3_m2} [facility] >59 creatinine, serum 0.70 mg/dL [facility] 0.57-1.00 urea nitrogen, blood 11 mg/dL [facility] 6-24 blood glucose, random 154 mg/dL [facility] 65-99 High international normalized ratio (INR) 0.9 [facility] Normal prothrombin time (patient) 10.2 s [facility] free thyroxine index 2.2 [facility] 1.2-4.9 triiodothyronine resin uptake 28 % [facility] 24-39 thyroxine, serum, total 8.0 ug/dL [facility] 4.5-12.0 thyroid stimulating hormone, serum 1.430 u[IU]/mL [facility] 0.450-4.500 ferritin, serum 133 ng/mL [facility] 15-150 iron saturation percent, serum 43 % [facility] 15-55 iron, serum 105 ug/dL [facility] 27-159 iron binding capacity, unsaturated 141 ug/dL [facility] 984-901 1726/01 /11 iron binding capacity, total 246 ug/dL [facility] 250-450 Low basophil count, absolute 0.0 x10E3/uL [facility] 0.0-0.2 Eosinophil Absolute Count 0.2 X10E3/UL [facility] 0.0-0.4 monocyte count, blood, automated 0.4 X10E3/UL [facility] 0.1-0.9 lymphocyte count, blood, automated 3.6 X10E3/UL [facility] 0.7-3.1 High Absolute Neutrophils 4.8 X10E3/UL [facility] 1.4-7.0 basophils as percent of blood leukocytes 0 % [facility] Not Estab. eosinophils as percent of blood leukocytes 3 % [facility] Not Estab. monocytes as percent of blood leukocytes 4 % [facility] Not Estab. lymphocytes as percent of blood leukocytes 40 % [facility] Not Estab. neutrophils as percent of blood leukocytes 53 % [facility] Not Estab. platelet count 360 X10E3/UL [facility] 703-920 0591/01 /11 red blood cell distribution width 13.1 % [facility] 11.7-15.4 mean corpuscular hemoglobin concentration, RBC 34.1 G/DL [facility] 31.5-35.7 mean corpuscular hemoglobin, RBC 28.4 pg [facility] 26.6-33.0 mean corpuscular volume, RBC 83 fL [facility] 79-97 hematocrit, blood 38.7 % [facility] 34.0-46.6 hemoglobin, blood 13.2 g/dL [facility] 11.1-15.9 erythrocyte (RBC) count 4.64 X10E6/UL [facility] 3.77-5.28 leukocyte count, blood 9.0 X10E3/UL [facility] 3.4-10.8 calcium, serum 9.9 mg/dL [facility] 8.7-10.2 carbon dioxide, venous blood 24 mmol/L [facility] 20-29 chloride, serum 99 mmol/L [facility] 96-106 potassium, serum 4.3 mmol/L [facility] 3.5-5.2 sodium, serum 140 mmol/L [facility] 526-430 6109/11 /14 urea nitrogen/creatinine ratio, serum 23 [facility] 9-23 eGFR if 99 mL/min/{1.7 3_m2} [facility] >59 eGFR if not 86 mL/min/{1.7 3_m2} [facility] >59 creatinine, serum 0.82 mg/dL [facility] 0.57-1.00 urea nitrogen, blood 19 mg/dL [facility] 6-24 blood glucose, random 105 mg/dL [facility] 65-99 High pro brain natriuretic peptide 208 pg/mL [facility] 0-249 microalbumin/creati nine ratio, urine <22.4 mg/g creat [facility] 0.0-30.0 microalbumin, random, urine <3.0 ug/mL [facility] Not Estab. creatinine, random, urine 13.4 mg/dL [facility] Not Estab. lipoprotein, beta, serum, point, quantitative, calculated 56 mg/dL [facility] 0-99 very low density lipoproteins 30 mg/dL [facility] 5-40 HDL cholesterol, serum 39 mg/dL [facility] >39 Low triglyceride, serum, random 149 mg/dL [facility] 0-149 cholesterol, serum 125 mg/dL [facility] 931-771 0028/03 /21 hemoglobin A1C, blood, as % of total hemoglobin 9.4 % [facility] 4.8-5.6 High calcium, serum 9.1 mg/dL [facility] 8.7-10.2 carbon dioxide, venous blood 22 mmol/L [facility] 20-29 chloride, serum 104 mmol/L [facility] 96-106 potassium, serum 4.0 mmol/L [facility] 3.5-5.2 sodium, serum 139 mmol/L [facility] 395-515 1185/03 /21 urea nitrogen/creatinine ratio, serum 13 [facility] 9-23 eGFR if 122 mL/min/{1.7 3_m2} [facility] >59 eGFR if not 105 mL/min/{1.7 3_m2} [facility] >59 creatinine, serum 0.69 mg/dL [facility] 0.57-1.00 urea nitrogen, blood 9 mg/dL [facility] 6-24 blood glucose, random 123 mg/dL [facility] 65-99 High thyroid stimulating hormone, serum 1.240 u[IU]/mL [facility] 0.450-4.500 B-type natriuretic peptide 24.6 pg/mL [facility] 0.0-100.0 lipoprotein, beta, serum, point, quantitative, calculated 54 mg/dL [facility] 0-99 very low density lipoproteins 13 mg/dL [facility] 5-40 HDL cholesterol, serum 51 mg/dL [facility] >39 triglyceride, serum, random 64 mg/dL [facility] 0-149 cholesterol, serum 118 mg/dL [facility] [phone]/09 /01 alanine aminotransferase (SGPT), serum 12 1/L [facility] 0-32 aspartate aminotransferase (SGOT), serum 10 1/L [facility] 0-40 alkaline phosphatase, serum 93 1/L [facility] 39-117 bilirubin, serum, total 0.3 mg/dL [facility] 0.0-1.2 albumin/globulin ratio, serum 1.7 [facility] 1.2-2.2 globulin, serum 2.3 [facility] 1.5-4.5 albumin, serum 3.9 g/dL [facility] 3.5-5.5 protein, total, serum 6.2 g/dL [facility] 6.0-8.5 calcium, serum 9.0 mg/dL [facility] 8.7-10.2 carbon dioxide, venous blood 24 mmol/L [facility] 20-29 chloride, serum 100 mmol/L [facility] 96-106 potassium, serum 4.7 mmol/L [facility] 3.5-5.2 sodium, serum 139 mmol/L [facility] 991-800 6775/09 /01 urea nitrogen/creatinine ratio, serum 20 [facility] 9-23 eGFR if 123 mL/min/{1.7 3_m2} [facility] >59 eGFR if not 107 mL/min/{1.7 3_m2} [facility] >59 creatinine, serum 0.66 mg/dL [facility] 0.57-1.00 urea nitrogen, blood 13 mg/dL [facility] 6-24 blood glucose, random 267 mg/dL [facility] 65-99 High HISTORY OF MEDICATION USE Medication Status Instructions Dates Provider Indications Com ments Ozempic 0.25 mg or 0.5 mg (2 mg/3 mL) pen injector active INJECT 0.5 MG SUBCUTANEOUSLY ONCE A WEEK Darline Morrow Qulipta 60 mg tablet active Take 1 tablet by mouth once a day Darline Morrow sertraline 50 mg tablet active Take 1 tablet by mouth every night Darline Morrow duloxetine 60 mg capsule,delayed release(DR/EC) active Take 1 capsule by mouth every night at bedtime Darline Morrow Nurtec ODT 75 mg tablet,disintegra ting active Take 1 tablet by mouth as directed Darline Morrow Ubrelvy 100 mg tablet active Take 1 tablet by mouth [facility].25 mg tablet active TAKE 1 TABLET BY MOUTH TWICE DAILY 10/28 [facility] bumetanide 1 mg tablet active TAKE 1 TABLET BY MOUTH TWICE DAILY 07/11 Gertrude Lopez carvedilol 6.25 mg tablet completed Take 1 tablet by mouth twice a day 11/11 - 10/28 [facility] clopidogrel 75 mg tablet completed TAKE 1 TABLET BY MOUTH DAILY 10/16 - 11/13 Amelia Sparks RN lisinopril 10 mg tablet completed TAKE 1 TABLET BY MOUTH EVERY DAY DIRECTED 08/14 - 09/06 Staci Whipple RN Brilinta 60 mg tablet active TAKE 1 TABLET BY MOUTH TWICE DAILY Hussain Escalona MD bumetanide 1 mg tablet completed TAKE 1 TABLET BY MOUTH TWICE DAILY EVERY DAY - 07/11 Gertrude Lopez Brilinta 90 mg tablet completed Take 1 tablet by mouth twice a day - Dennise De La Cruz diltiazem HCl 30 mg tablet completed TAKE 1 TABLET BY MOUTH EVERY 8 HOURS 02/08 - Darlinemonico Morrow bumetanide 1 mg tablet completed 1 tablet by mouth twice a day TAKE 1 TABLET BY MOUTH ONCE A DAY 02/05 - Jalyn Ramos furosemide 20 mg tablet completed Take 1 tablet by mouth once a day 01/25 - 02/05 Hussain Escalona MD furosemide 20 mg tablet completed Take 1 tablet once a day 01/25 - 01/25 Maggie Ventimiglia [facility] losartan 25 mg tablet completed - 01/25 Maggie Ventimiglia TILE CLASSIFIER tizanidine 2 mg tablet active Tamra Augustin Kerendia 20 mg tablet completed Take 1 tablet by mouth once a day 01/25 - Darline Morrow Entresto 24-26 mg tablet active Take 1 tablet by mouth twice a day 01/25 Maggie Ventimiglia TILE CLASSIFIER carvedilol 6.25 mg tablet completed TAKE ONE TABLET BY MOUTH TWICE DAILY 01/25 - 11/11 Tamra Augustin Linzess 145 mcg capsule active Maggie Ventimiglia TILE CLASSIFIER Jardiance 25 mg tablet active Maggie Ventimiglia TILE CLASSIFIER losartan 25 mg tablet completed - 01/25 Maggie Ventimiglia TILE CLASSIFIER Brilinta 90 mg tablet completed - 02/05 Jannette Alegria carvedilol 3.125 mg tablet completed - 01/25 Maggie Ventimiglia TILE CLASSIFIER Vascepa 1 gram capsule completed TAKE 2 CAPSULES BY MOUTH TWICE DAILY 01/15 - Darline Morrow diltiazem HCl 30 mg tablet completed Take 1 tablet by mouth every eight hours 12/05 - 01/25 Maggie Ventimiglia [facility] aspirin 81 mg tablet,delayed release (DR/EC) active TAKE 1 TABLET BY MOUTH EVERY DAY 11/06 Tamra Augustin metoprolol succinate 100 mg tablet extended release 24 hr completed TAKE 1 TABLET BY MOUTH DAILY 09/19 - 01/25 Maggie Ventimiglia TILE CLASSIFIER lisinopril 10 mg tablet completed TAKE 1 TABLET BY MOUTH EVERY DAY DIRECTED 08/27 - 01/25 Maggie Ventimiglia TILE CLASSIFIER Vascepa 1 gram capsule completed - 01/15 Carisa Spence acetaminophen-cod eine 300-30 mg tablet active Luisa Manning clopidogrel 75 mg tablet completed TAKE 1 TABLET BY MOUTH DAILY - 01/25 Maggie NEAL atorvastatin 80 mg tablet active Take 1 tablet by mouth once a day Tamra Augustin topiramate 25 mg tablet completed - Darline Morrow nortriptyline 50 mg capsule completed twice a day - Darline Morrow aspirin 81 mg tablet,delayed release (DR/EC) completed TAKE 1 TABLET BY MOUTH DAILY 01/17 - 11/06 Ellen Mendieta hydrochlorothiazi de 25 mg tablet completed TAKE 1 TABLET BY MOUTH DAILY 12/28 - 01/25 Maggie NEAL metoprolol succinate 100 mg tablet extended release 24 hr completed Take 1 tablet by mouth once a day 07/30 - 09/19 Slick Vaz clopidogrel 75 mg tablet completed Take 1 tablet once a day 01/26 - Farrukh Grace RN ELIQUIS 5 MG ORAL TABLET completed take 1 tab twice a day 01/20 - 01/26 Farrukh Grace RN nortriptyline 25 mg capsule completed Take 1 tablet every night 01/20 - 01/17 Geno Goldberg oxycodone-acetami nophen 7.5-325 mg tablet completed Take 1 every six hours as needed 12/16 - 08/22 Luisa Manning ELIQUIS 5 MG ORAL TABLET completed one tablet twice daily- as prep for ablation 11/24 - 11/29 Giuseppe SIMPSON-APAP-C AFF-COD CAPSULE 40 mg 40 mg completed as needed 08/09 - 01/25 Maggie NEAL furosemide 20 mg tablet completed Take 1 tablet once a day 08/09 - 01/25 Tamra Augustin KEFLEX 500 MG ORAL CAPSULE completed one tab three times daily x 7 days 06/20 - 06/16 Hussain Escalona MD Admelog U-100 Insulin lispro 100 unit/mL solution completed sliding scale 10/28 - Darline Morrow #20, 24 days supply, Prescribed by [facility], Filled 10/28/2018 tizanidine 2 mg tablet completed Take 1 tablet by mouth twice a day 11/02 - 08/22 Rebeca Sullivan #120, 30 days supply, Prescribed by MÓNICA POWERS, Filled 11/02/2018 WELLBUTRIN SR 150 MG ORAL TABLET EXTENDED RELEASE 12 HOUR completed take one tablet twice daily 07/24 - 12/16 Geno Goldberg TOPAMAX 25 MG ORAL TABLET completed take one at bedtime 07/24 - 06/29 Geno Goldberg hydrochlorothiazi de 25 mg tablet completed Take 1 tablet by mouth once a day 01/13 - 12/28 Nancy Atdeyanira CLOPIDOGREL 75MG TABLETS completed TAKE 1 TABLET BY MOUTH DAILY 11/06 - 11/15 Hussain Escalona MD ENDOCET 5-325 MG ORAL TABLET completed take one 2 to 3 times daily 01/16 - 01/20 Geno Goldberg nitroglycerin 0.4 mg tablet, sublingual active 1 tablet under tongue as needed 08/04 Nancy Meneses HUMALOG SOLUTION CARTRIDGE completed sliding scale 01/16 - 11/10 Rebeca Webberby aspirin 81 mg tablet,delayed release (DR/EC) completed Take 1 tablet by mouth once a day 01/13 - 01/17 Blaine Han atorvastatin 20 mg tablet completed Take 1 once a day 01/16 - 01/17 Hussain Escalona MD Levo-T 100 mcg tablet active Take 1 once a day 01/16 Hussain Escalona MD lisinopril 10 mg tablet completed Take 1 tablet by mouth once a day as directed 02/11 - 08/27 Deena Silva TOPROL XL 100 MG ORAL TABLET EXTENDED RELEASE 24 HOUR completed ONE TAB DAILY 01/16 - 11/15 Hussain Escalona MD BRILINTA 90 MG ORAL TABLET completed take one twice daily 01/16 - 12/05 Debby Alberto metformin 1,000 mg tablet active 01/16 Nancy Meneses gabapentin 300 mg capsule active Take 2 capsule three times a day 01/16 Maggie Connor TILE CLASSIFIER SOCIAL HISTORY Date Observation Value Provider alcohol use no Hussain marc MD smoking status Never smoker Hussain bhandari MD alcohol use no Hussain marc MD smoking status Never smoker Hussain bhandari MD social history E&M S moking History: Kirti moore has never smoked. Hussain Escalona MD social history reviewed E&M revi ewed - no changes required Hussain Escalona MD smoking status Never smoker Gertrude Lopez social history E&M S moking History: Kirti moore has never smoked. Hussain Escalona MD social history reviewed E&M revi ewed - no changes required Hussain Escalona MD smoking status Never smoker Jalyn Ramos alcohol use no Hussain marc MD social history reviewed E&M revi ewed - no changes required Hussain Escalona MD social history E&M S moking History: Kirti moore has never smoked. Hussain Escalona MD smoking status Never smoker Tamra murphy social history reviewed E&M revi ewed - no changes required Hussain Escalona MD social history E&M S moking History: Kirti moore has never smoked. Hussain Escalona MD social history reviewed E&M revi ewed - no changes required Hussain Escalona MD smoking status Never smoker Jannette Roberto and alcohol use no Maggie GREENEP smoking status Never smoker Tamra murphy smoking status Never smoker Julianne Astudillo social history reviewed E&M revi ewed - no changes required Hussain Escalona MD social history E&M S moking History: P teresa has never smoked. Hussain Escalona MD social history reviewed E&M revi ewed - no changes required Hussain Escalona MD smoking status Never smoker Blake garza social history E&M S moking History: P teresa has never smoked. Hussain Escalona MD social history reviewed E&M revi ewed - no changes required Hussain Escalona MD smoking status Never smoker Rebeca Webberby social history E&M S moking History: P teresa has never smoked. Hussain Escalona MD social history reviewed E&M revi ewed - no changes required Hussain Escalona MD smoking status Never smoker [facility] social history E&M S moking History: Kirti moore has never smoked. Ponce Garcia social history reviewed E&M revi ewed - no changes required Ponce Garcia smoking status Never smoker Geno V[facility]ctor hall social history E&M S moking History: Kirti moore has never smoked. Ponce Garcia social history reviewed E&M revi ewed - no changes required Ponce Garcia smoking status Never smoker Uziel Reynoso social history E&M S moking History: Kirti moore has never smoked. Hussain Escalona MD social history reviewed E&M revi ewed - no changes required Hussain Escalona MD smoking status Never smoker Hussain bhandari MD number of grandchildren Hussain Escalona MD social history reviewed E&M revi ewed - no changes required Giuseppe Pierce social history reviewed E&M revi ewed - no changes required Giuseppe Pierce social history reviewed E&M revi ewed - no changes required Petra Tobar MD number of grandchildren Petra Tobar MD smoking status Never smoker Nettie carr social history E&M S moking History: P teresa has never smoked. Hussain Escalona MD social history reviewed E&M revi ewed - no changes required Hussain Escalona MD smoking status Never smoker Tons Reynoso smoking status Never smoker Hussain bhandari MD social history E&M S moking History: P teresa has never smoked. Hussain Escalona MD social history reviewed E&M revi ewed - no changes required Hussain Escalona MD smoking status Never smoker Carisa Parish le social history E&M S moking History: P teresa has never smoked. Hussain Escalona MD smoking status Never smoker Felicity Raza social history reviewed E&M revi ewed - no changes required Felicity Negro smoking status Never smoker Hussain bhandari MD social history E&M S moking History: Kirti moore has never smoked. Hussain Escalona MD social history reviewed E&M revi ewed - no changes required Hussain Escalona MD social history E&M S moking History: P teresa has never smoked. Hussain Escalona MD social history reviewed E&M revi ewed - no changes required Hussain Escalona MD alcohol use no Rebeca Sullivan smoking status Never smoker Rebeca Sullivan social history E&M S moking History: Kirti moore has never smoked. Hussain Escalona MD social history reviewed E&M revi ewed - no changes required Hussain Escalona MD alcohol use no Debby Remy smoking status Never smoker Debby Remy social history reviewed E&M revi ewed - no changes required Hussain Escalona MD social history E&M S moking History: Kirti moore has never smoked. Hussain Escalona MD alcohol use no Debby Remy smoking status Never smoker Debby Remy number of grandchildren Hussain Escalona MD Stan Plurad social history E&M S moking History: P teresa has never smoked. Hussain Escalona MD social history reviewed E&M revi ewed - no changes required Hussain Escalona MD alcohol use no Debby Remy smoking status Never smoker Debby Remy FUNCTIONAL STATUS Date Observation Value Provider HRA, CV Assess/Plan, Angina (inactive) Management Plan antianginal therapy, schedule PCI Hussain Escalona MD HRA, CV Assess/Plan, Angina (inactive) Management Plan continue current therapy Hussain Escalona MD HRA, CV Assess/Plan, Angina (inactive) Management Plan continue current therapy Hussain Escalona MD HRA, CV Assess/Plan, Angina (inactive) Management Plan continue current therapy Hussain Escalona MD HRA, CV Assess/Plan, Angina (inactive) Management Plan continue current therapy Hussain Escalona MD HRA, CV Assess/Plan, Angina (inactive) Management Plan continue current therapy Hussain Escalona MD HRA, CV Assess/Plan, Angina (inactive) Management Plan continue current therapy Hussain Escalona MD HRA, CV Assess/Plan, Angina (inactive) Management Plan continue current therapy Hussain Escalona MD HRA, CV Assess/Plan, Angina (inactive) Management Plan continue current therapy Maggie Connor TILE CLASSIFIER HRA, CV Assess/Plan, Angina (inactive) Management Plan continue current therapy, antianginal therapy Hussain Escalona MD HRA, CV Assess/Plan, Angina (inactive) Management Plan continue current therapy Hussain Escalona MD HRA, CV Assess/Plan, Angina (inactive) Management Plan continue current therapy Hussain Escalona MD HRA, CV Assess/Plan, Angina (inactive) Management Plan continue current therapy Hussain Escalona MD HRA, CV Assess/Plan, Angina (inactive) Management Plan continue current therapy Hussain Escalona MD HRA, CV Assess/Plan, Angina (inactive) Management Plan continue current therapy Ponce Garcia HRA, CV Assess/Plan, Angina (inactive) Management Plan continue current therapy Hussain Escalona MD HRA, CV Assess/Plan, Angina (inactive) Management Plan continue current therapy Giuseppe Stan HRA, CV Assess/Plan, Angina (inactive) Management Plan continue current therapy Giuseppe Stan HRA, CV Assess/Plan, Angina (inactive) Management Plan continue current therapy Hussain Escalona MD HRA, CV Assess/Plan, Angina (inactive) Management Plan continue current therapy Petra Tobar MD HRA, CV Assess/Plan, Angina (inactive) Management Plan continue current therapy Hussain Escalona MD HRA, CV Assess/Plan, Angina (inactive) Management Plan continue current therapy Hussain Escalona MD HRA, CV Assess/Plan, Angina (inactive) Management Plan continue current therapy, antianginal therapy Hussain Escalona MD HRA, CV Assess/Plan, Angina (inactive) Management Plan continue current therapy, antianginal therapy, schedule PCI Hussain Escalona MD HRA, CV Assess/Plan, Angina (inactive) Management Plan continue current therapy Hussain Escalona MD HRA, CV Assess/Plan, Angina (inactive) Management Plan continue current therapy Hussain Escalona MD HRA, CV Assess/Plan, Angina (inactive) Management Plan continue current therapy Stan Plurad FAMILY HISTORY Family Member Condition Paternal Grandmother Family History of D mary: INSURANCE PROVIDERS Payer name Policy type / Coverage type Claudette fofana ID [employer] MEDICARE Medicare [id number] [facility] Medicaid 0 [id number] ADVANCE DIRECTIVES Name Date DISCUSSED - NO DECISION MADE TREATMENT PLAN Date Name Performer [id number],C, H er updated medication list for this problem includes: Entresto 24-26 Mg Tablet (Sacubitril-valsartan) ..... Take 1 tablet by mouth twice a day Jardiance 25 Mg Tablet (Empagliflozin) Aspirin 81 Mg Tablet,delayed Release (dr/ec) (Aspirin) ..... Take 1 tablet by mouth every day Metformin 1,000 Mg Tablet (Metformin) Hussain Escalona MD [id number],C,L IPID EANEL C HOLESTEROL 101 L 140 - 199 mg/dL T RIGLYCERIDES 91 0 - 150 mg/dL H DL CHOLESTEROL 45 40 mg/dL L DL CHOLESTEROL, CALCULATED 38 O - 130 ag/dL H er updated medication list for this problem includes: Atorvastatin 80 Mg Tablet (Atorvastatin) ..... Take 1 tablet by mouth once a day Vascepa 1 Gram Capsule (Icosapent ethyl) ..... Take 2 capsules by mouth twice daily Hussain Escalona MD [id number],C, N o LISHA with current CPAP treatment. Had home sleep study done on CPAP. Has sleep issues. The patient is using CPAP on a regular basis. The patient has been benefiting from therapy and should continue use. January 10, 2023 S fadi she has lost substantial weight, currently not on CPAP Hussain Escalona MD [id number],C, P atient with EF of 20%. ICD in place. Concern that worsening CHF/CMP d/t arrythmia or frequent PVCs will quantify with 24 hour monitor. She will continue medication therapy as noted above. February 05, 2022 W ill not be able to afford Kerendia, switched Lasix to Bumex bring her back in 1 week. Continue with Jardiance and Entresto. February 25, 2022 Has substantially improved with her volume status with her medications. Has given Karendia samples, reduce Bumex to once a day. Continue with Jardiance and Entresto.Check labs. March 29, 2022 L abs are okay, she is to take Bumex only once a day. Echo EF 68% on 01/07/22 Hussain Escalona MD [id number],C, M itral Valve: T he mitral valve is normal in appearance and function. Mild mitral valve regurgitation N oted on echo from 01/07January 10, 2023 E CHO done in 2021, needs to have done in 2022 to evaluate mitral valve. Hussain Escalona MD [id number],C, R educed her Bumex twice a week. She may need additional sodium. Continue with Bumex twice a week dizziness has improved Hussain Escalona MD [id number],S, R educed her Bumex twice a week. She may need additional sodium. Hussain Escalona MD [id number],C, Echo, [facility] N ormal left ventricular size. Mild concentric left ventricular hypertrophy. Left ventricular e jection fraction is estimated at 65 %. T he mitral valve is normal in appearance and function. Mild mitral valve regurgitation. A ortic valve leaflets appear structurally normal. T he tricuspid valve is normal in appearance and function. There is mild to moderate t ricuspid regurgitation. Right ventricular systolic pressure of 49 mm Hg is consistent w ith moderate pulmonary hypertension. RPM monitor Hussain Escalona MD [id number],C, t ry dilt 30 q8 and then cd 120 if improved and tolerated Hussain Escalona MD [id number],C, Negative arterial study. Sees podiatry. s he had 3rd toe right foot amputated she may have PAD causing woulnd healing issues w e can do an angio and eval for occlusive PAD however she may have microvascular disease whcih may be inhibiting wound healing c an check with PODIATRY if angio is something they are interested in geting done Hussain Escalona MD [id number],C,n o new issues p tommy on getting back injections d id ok wiht podiatry surgery Hussain Escalona MD [id number],C, D APT PLAVIX WAS HELD FOR EVALUATING IF HER FATIGUE WIOULD IMPROVE AND DID NOT CHANGE SO WILL RESUME December 05, 2021 b ack on asa plavix February 05, 2022 Currently on ASA/Brillinta for recent stent placement March 29, 2022 R emains on ASA/Brillinta no bleeding issues. Had ISR for LAD stent Hussain Escalona MD [id number],S, H er updated medication list for this problem includes: Atorvastatin 80 Mg Tablet (Atorvastatin) ..... Take 1 tablet by mouth once a day Vascepa 1 Gram Capsule (Icosapent ethyl) ..... Take 2 capsules by mouth twice daily Hussain Escalona MD [id number],S, D APT PLAVIX WAS HELD FOR EVALUATING IF HER FATIGUE WIOULD IMPROVE AND DID NOT CHANGE SO WILL RESUME December 05, 2021 b ack on asa plavix February 05, 2022 Currently on ASA/Brillinta for recent stent placement March 29, 2022 R emains on ASA/Brillinta no bleeding issues. Had ISR for LAD stent Hussain Escalona MD [id number],C, o n ozempic has lost close to 50 pounds on Ozempe Hussain Escalona MD [id number],C, P atient with EF of 20%. ICD in place. Concern that worsening CHF/CMP d/t arrythmia or frequent PVCs will quantify with 24 hour monitor. She will continue medication therapy as noted above. February 05, 2022 W ill not be able to afford Kerendia, switched Lasix to Bumex bring her back in 1 week. Continue with Jardiance and Entresto. February 25, 2022 Has substantially improved with her volume status with her medications. Has given Karendia samples, reduce Bumex to once a day. Continue with Jardiance and Entresto.Check labs. March 29, 2022 L abs are okay, she is to take Bumex only once a day. Echo EF 68% on 01/07/22 Hussain Escalona MD [id number],C, M itral Valve: T he mitral valve is normal in appearance and function. Mild mitral valve regurgitation N oted on echo from 01/07 Hussain Escalona MD [id number],S, P atient with EF of 20%. ICD in place. Concern that worsening CHF/CMP d/t arrythmia or frequent PVCs will quantify with 24 hour monitor. She will continue medication therapy as noted above. February 05, 2022 W ill not be able to afford Kerendia, switched Lasix to Bumex bring her back in 1 week. Continue with Jardiance and Entresto. February 25, 2022 Has substantially improved with her volume status with her medications. Has given Karendia samples, reduce Bumex to once a day. Continue with Jardiance and Entresto.Check labs. Hussain Escalona MD [id number],S, Echo, [facility] N ormal left ventricular size. Mild concentric left ventricular hypertrophy. Left ventricular e jection fraction is estimated at 65 %. T he mitral valve is normal in appearance and function. Mild mitral valve regurgitation. A ortic valve leaflets appear structurally normal. T he tricuspid valve is normal in appearance and function. There is mild to moderate t ricuspid regurgitation. Right ventricular systolic pressure of 49 mm Hg is consistent w ith moderate pulmonary hypertension. RPM monitor Hussain Escalona MD [id number],C,I mprovement of SOB, continue CHF med rx Hussain Escalona MD [id number],C, P atient with EF of 20%. ICD in place. Concern that worsening CHF/CMP d/t arrythmia or frequent PVCs will quantify with 24 hour monitor. She will continue medication therapy as noted above. February 05, 2022 W ill not be able to afford Kerendia, switched Lasix to Bumex bring her back in 1 week. Continue with Jardiance and Entresto. Hussain Escalona MD [id number],S,M itral Valve: T he mitral valve is normal in appearance and function. Mild mitral valve regurgitation N oted on echo from 01/07 Hussain Escalona MD [id number],C, D APT PLAVIX WAS HELD FOR EVALUATING IF HER FATIGUE WIOULD IMPROVE AND DID NOT CHANGE SO WILL RESUME December 05, 2021 b ack on asa plavix February 05, 2022 C urrently on ASA/Brillinta for recent stent placement Hussain Escalona MD [id number],C, T he following medications were removed from the medication list: Furosemide 20 Mg Tablet (Furosemide) ..... Take 1 tablet by mouth once a day Her updated medication list for this problem includes: Bumetanide 1 Mg Tablet (Bumetanide) ..... 1 tablet by mouth twice a day take 1 tablet by mouth once a day Carvedilol 6.25 Mg Tablet (Carvedilol) ..... Take one tablet by mouth twice daily Aspirin 81 Mg Tablet,delayed Release (dr/ec) (Aspirin) ..... Take 1 tablet by mouth every day BP today: 123/84 P rior BP: 120/80 (01/25/2022) & #13;Labs Reviewed: C reat: 0.96 (01/18/2021) C hol: 143 (01/18/2021) HDL: 41 (01/18/2021) Hussain Escalona MD [id number],W,P atient with EF of 20%. ICD in place. Concern that worsening CHF/CMP d/t arrythmia or frequent PVCs will quantify with 24 hour monitor. She will continue medication therapy as noted above. Maggie Connor [facility] [id number],W,P atient presents with bilateral pitting edema R>L, in setting of volume overload. Discussed with Dr. Obando and low likelihood for DVT as on aspirin and brilinta. Most likely r/t volume overload. We will do venous doppler however, for further evaluation. Maggie Connor [facility] [id number],W,P teresa has acute systolic HF EF of 20% per recent cath. Volume overload with bilateral lower extremity edema noted on exam today. Meds were adjusted. Losartan and cardizem stopped. Patient started Kerendia and Entresto. BB dose increased. She will f/u in 2 weeks or sooner if needed. T he following medications were removed from the medication list: Furosemide 20 Mg Tablet (Furosemide) ..... Take 1 tablet once a day Diltiazem Hcl 30 Mg Tablet (Diltiazem hcl) ..... Take 1 tablet by mouth every eight hours Losartan 25 Mg Tablet (Losartan) Metoprolol Succinate 100 Mg Tablet Extended Release 24 Hr (Metoprolol succinate) ..... Take 1 tablet by mouth daily Carvedilol 3.125 Mg Tablet (Carvedilol) Lisinopril 10 Mg Tablet (Lisinopril) ..... Take 1 tablet by mouth every day as directed Hydrochlorothiazide 25 Mg Tablet (Hydrochlorothiazide) ..... Take 1 tablet by mouth daily Clopidogrel 75 Mg Tablet (Clopidogrel) ..... Take 1 tablet by mouth daily Her updated medication list for this problem includes: Losartan 25 Mg Tablet (Losartan) Entresto 24-26 Mg Tablet (Sacubitril-valsartan) ..... Take 1 tablet by mouth twice a day Carvedilol 6.25 Mg Tablet (Carvedilol) ..... Take one tablet by mouth twice daily Brilinta 90 Mg Tablet (Ticagrelor) Aspirin 81 Mg Tablet,delayed Release (dr/ec) (Aspirin) ..... Take 1 tablet by mouth every day Nitroglycerin 0.4 Mg Tablet, Sublingual (Nitroglycerin) ..... 1 tablet under tongue as needed Maggie Connor [facility] [id number],S,P teresa has known history of CAD with recent in stent restenosis of the LAD and 2 new stent. She remain on asa, statin, BB and brilinta. She reports some chest pain with exertion, most likely secondary to her volume overload in setting of CHF, different that pain that took her to ER. She had f/u EKG and was seen with DR. Obando. T-wave abnormality/changes most likely post AL. We will adjust medications today with increase in BB dose. She will f/u in 2 weeks or sooner if needed. Encouraged patient if worsening or persistent symptoms to go to ER Maggie Connor [employer] [id number],S,t ry dilt 30 q8 and then cd 120 if improved and tolerated Hussain Escalona MD [id number],S, D APT PLAVIX WAS HELD FOR EVALUATING IF HER FATIGUE WIOULD IMPROVE AND DID NOT CHANGE SO WILL RESUME December 05, 2021 b ack on asa plavix Hussain Escalona MD [id number],C, Her updated medication list for this problem includes: Vascepa 1 Gram Capsule (Icosapent ethyl) Atorvastatin 40 Mg Tablet (Atorvastatin) okay to hold lipitor for a month to see how you feel b ack on chol med December 05, 2021 Hussain Escalona MD [id number],C, N o LISHA with current CPAP treatment. Had home sleep study done on CPAP. Has sleep issues. The patient is using CPAP on a regular basis. The patient has been benefiting from therapy and should continue use. Hussain Escalona MD [id number],C, Negative arterial study. Sees podiatry. Will obtain a sensilase. Hussain Escalona MD [id number],S,on ozempic cox s lost 30 pounds Hussain Escalona MD [id number],C, P zakia to implant ILR. Reviewed pros and cons. She is agreeable in having it done. May be missing arrhythmia on tele monitor. May 05, 2019 Sinus PVCs on ILR. J deneen 2021 g etting palps will add dilt 30 q8 and seehow she does then increaset to dilt cd 120 qd Hussain Escalona MD [id number],C, N o LISHA with current CPAP treatment. Had home sleep study done on CPAP. Has sleep issues. The patient is using CPAP on a regular basis. The patient has been benefiting from therapy and should continue use. Hussain Escalona MD [id number],S, Hussain Escalona MD [id number],C, 0 12/15/2017 Successful revascularization using the 3.25 x 15 mm Myrna Xience drug-eluting stent 3.25 x 15 mm Myrna Xience. LAD Hussain Escalona MD [id number],S, Negative arterial study. Sees podiatry. Will obtain a sensilase. Hussain Escalona MD [id number],C, S uccessful AV node slow pathway ablation on 11/25/2019 R emains on January 17, 2021 D evice check recently demonstrated in December episodes of SVT, reviewed with her, regarding this she does not have enough episodes to warrant repeat of ablation procedure. August 22, 2021 r are intermittent palpitaions Hussain Escalona MD [id number],C,H ad covid 2 months ago. She was vaccinated, no booster yet. Hussain Escalona MD [id number],S,A 1c is 9. Check sensilase for PAD Hussain Escalona MD [id number],C, Negative arterial study. Hussain Escalona MD [id number],C, N o LISHA with current CPAP treatment. Had home sleep study done on CPAP. Has sleep issues. The patient is using CPAP on a regular basis. The patient has been benefiting from therapy and should continue use. Hussain Escalona MD [id number],C, v accinated Hussain Escalona MD [id number],S,S he needs to be seen by an endocronologist will have her see Olamide Ramírez here for endo. Has high A1c at 10.9 H er updated medication list for this problem includes: Aspirin 81 Mg Tablet,delayed Release (dr/ec) (Aspirin) ..... Take 1 tablet by mouth daily Admelog U-100 Insulin Lispro 100 Unit/ml Solution (Insulin lispro) ..... Sliding scale Lisinopril 10 Mg Tablet (Lisinopril) ..... Take 1 tablet by mouth once a day as directed Metformin 1,000 Mg Tablet (Metformin) Hussain Escalona MD [id number],C,T SH was okay W il checke thryodi levels H er updated medication list for this problem includes: Levo-t 100 Mcg Tablet (Levothyroxine) ..... Take 1 once a day Hussain Escalona MD [id number],S,D iabeteic nerve conduction study was performed, Dr Camacho, and was told she has recuded nerve conduction H er updated medication list for this problem includes: Aspirin 81 Mg Tablet,delayed Release (dr/ec) (Aspirin) ..... Take 1 tablet by mouth daily Admelog U-100 Insulin Lispro 100 Unit/ml Solution (Insulin lispro) ..... Sliding scale Lisinopril 10 Mg Tablet (Lisinopril) ..... Take 1 tablet by mouth once a day as directed Metformin 1,000 Mg Tablet (Metformin) Hussain Escalona MD [id number],C, D APT PLAVIX WAS HELD FOR EVALUATING IF HER FATIGUE WIOULD IMPROVE AND DID NOT CHANGE SO WILL RESUME Hussain Escalona MD [id number],C, v accinated Hussain Escalona MD [id number],C, 0 12/15/2017 Successful revascularization using the 3.25 x 15 mm Myrna Xience drug-eluting stent 3.25 x 15 mm Myrna Xience. LAD Hussain Escalona MD [id number],C, A ICD per SK O n Toprol XL Hussain Escalona MD [id number],C, N o LISHA while using CPAP based on sleep study which is good news. Not anemic. Thyroid WNL. ON Thyroid replacement. C ould be allergic to knee replacement, which may be a far fetched thought, however she has been feeling sick ever since the knee replacement went in. Will d/c Plavix and Lipitor and Omeprazole and see how she does in 2 weeks. IF no change, I do not have any other recommendations. July 21, 2019 I f after seeing orthopedist there is no improvement or plans for management. The only other option is to d/c beta blockade and see if her level of fatigue improves as a side effect of BB. As a consequence her palpitations will probably increase. Had no change in Sx coming off of Plavix, Lipitor, and Omeprazole. M 2019 R ESUME PLAVIX AND LIPITOR January 17, 2021 W ill review bloodwork Hussain Escalona MD [id number],C, S uccessful AV node slow pathway ablation on 11/25/2019 R emains on BB January 17, 2021 D evice check recently demonstrated in December episodes of SVT, reviewed with her, regarding this she does not have enough episodes to warrant repeat of ablation procedure. Hussain Escalona MD [id number],C,W il checke thryodi levels H er updated medication list for this problem includes: Levo-t 100 Mcg Tablet (Levothyroxine) ..... Take 1 once a day Hussain Escalona MD [id number],S,o lan to hold lipitor for a month to see how you feel Hussain Escalona MD [id number],C,m anaged by pcp H er updated medication list for this problem includes: Levo-t 100 Mcg Oral Tablet (Levothyroxine sodium) ..... Take one daily Hussain Escalona MD [id number],C, T he patient continues to walk with a cane and is experiencing falls due to nerve damage following knee surgery\ November 15, 2020 c onsider coming off lipitor even though it is low dosage Hussain Escalona MD [id number],C, D APT PLAVIX WAS HELD FOR EVALUATING IF HER FATIGUE WIOULD IMPROVE AND DID NOT CHANGE SO WILL RESUME Hussain Escalona MD [id number],C, N o LISHA with current CPAP treatment. Hussain Escalona MD [id number],C, 0 12/15/2017 Successful revascularization using the 3.25 x 15 mm Myrna Xience drug-eluting stent 3.25 x 15 mm Myrna Xience. LAD Hussain Escalona MD [id number],C, A ICD per SK Hussain Escalona MD [id number],C, Negative arterial study. Hussain Escalona MD [id number],S,vaccinated Sa tyree Escalona MD Cardiology:Needs pre op for back surgery per Dr. Merlos. Needs cardiac cath for preop eval Hussain Escalona MD Cardiology: Kirti moore has known history of CAD with recent in stent restenosis of the LAD and 2 new stent. She remain on asa, statin, BB and brilinta. She reports some chest pain with exertion, most likely secondary to her volume overload in setting of CHF, different that pain that took her to ER. She had f/u EKG and was seen with DR. Obando. T-wave abnormality/changes most likely post AL. We will adjust medications today with increase in BB dose. She will f/u in 2 weeks or sooner if needed. Encouraged patient if worsening or persistent symptoms to go to ER May 02, 2023 O lan to swich her to lower dose of brilinta 60mg BID since she has completed 12 months of dapt February 09, 2024 W ill repeat cardiac cath to evaluate her symptoms Hussain Escalona MD Cardiology: D APT PLAVIX WAS HELD FOR EVALUATING IF HER FATIGUE WIOULD IMPROVE AND DID NOT CHANGE SO WILL RESUME December 05, 2021 b ack on asa plavix February 05, 2022 C urrently on ASA/Brillinta for recent stent placement March 29, 2022 R emains on ASA/Brillinta no bleeding issues. Had ISR for LAD stent February 09, 2024 R emains on Brilinta 60 BID and aspirin 81 no bleeding issues Hussain Escalona MD Cardiology:No arryth duong noted on defibrullator check from 01/31/24 Hussain Escalona MD Cardiology:Diabetic R great toe amputation. Prior angio done 08/20/22 Hussain Escalona MD Cardiology: T he patient continues to walk with a cane and is experiencing falls due to nerve damage following knee surgery\ November 15, 2020 c onsider coming off lipitor even though it is low dosage D iabetic R great toe amputation. Prior angio done 08/20/22 February 09, 2024 N eeds preop for back surgery per Dr. Chelita Escalona MD Cardiology:February 09, 2024 S he is having decompensation of SOB and recurrence of chest pressure. Prior stent eval by cath patent however with progressive SOB and angina sx, she is unable to walk. Will need to do cardiac cath to evaluate. Evaluate via right radial access. This will delay any back surgery she may be needing. Hussain Escalona MD Cardiology: Kirti moore has known history of CAD with recent in stent restenosis of the LAD and 2 new stent. She remain on asa, statin, BB and brilinta. She reports some chest pain with exertion, most likely secondary to her volume overload in setting of CHF, different that pain that took her to ER. She had f/u EKG and was seen with DR. Obando. T-wave abnormality/changes most likely post AL. We will adjust medications today with increase in BB dose. She will f/u in 2 weeks or sooner if needed. Encouraged patient if worsening or persistent symptoms to go to ER May 02, 2023 O lan to swich her to lower dose of brilinta 60mg BID since she has completed 12 months of dapt Hussain Escalona MD Cardiology: H er updated medication list for this problem includes: Entresto 24-26 Mg Tablet (Sacubitril-valsartan) ..... Take 1 tablet by mouth twice a day Jardiance 25 Mg Tablet (Empagliflozin) Aspirin 81 Mg Tablet,delayed Release (dr/ec) (Aspirin) ..... Take 1 tablet by mouth every day Metformin 1,000 Mg Tablet (Metformin) Hussain Escalona MD Cardiology:LIPID DEMIAN EL C HOLESTEROL 101 L 140 - 199 mg/dL T RIGLYCERIDES 91 0 - 150 mg/dL H DL CHOLESTEROL 45 40 mg/dL L DL CHOLESTEROL, CALCULATED 38 O - 130 ag/dL H er updated medication list for this problem includes: Atorvastatin 80 Mg Tablet (Atorvastatin) ..... Take 1 tablet by mouth once a day Vascepa 1 Gram Capsule (Icosapent ethyl) ..... Take 2 capsules by mouth twice daily Hussain Escalona MD Cardiology: N o LISHA with current CPAP treatment. Had home sleep study done on CPAP. Has sleep issues. The patient is using CPAP on a regular basis. The patient has been benefiting from therapy and should continue use. January 10, 2023 S fadi she has lost substantial weight, currently not on CPAP Hussain Escalona MD Cardiology: P atient with EF of 20%. ICD in place. Concern that worsening CHF/CMP d/t arrythmia or frequent PVCs will quantify with 24 hour monitor. She will continue medication therapy as noted above. February 05, 2022 W ill not be able to afford Kerendia, switched Lasix to Bumex bring her back in 1 week. Continue with Jardiance and Entresto. February 25, 2022 H as substantially improved with her volume status with her medications. Has given Karendia samples, reduce Bumex to once a day. Continue with Jardiance and Entresto.Check labs. March 29, 2022 Labs are okay, she is to take Bumex only once a day. Echo EF 68% on 01/07/22 Hussain Escalona MD Cardiology: M itral Valve: T he mitral valve is normal in appearance and function. Mild mitral valve regurgitation N oted on echo from 01/07January 10, 2023 E CHO done in 2022, needs to have done in 2022 to evaluate mitral valve. Hussain Escalona MD Cardiology: R educed her Bumex twice a week. She may need additional sodium. Continue with Bumex twice a week dizziness has improved Hussain Escalona MD Cardiology: R educed her Bumex twice a week. She may need additional sodium. Hussain Escalona MD Cardiology: Echo, [facility] N ormal left ventricular size. Mild concentric left ventricular hypertrophy. Left ventricular e jection fraction is estimated at 65 %. T he mitral valve is normal in appearance and function. Mild mitral valve regurgitation. A ortic valve leaflets appear structurally normal. T he tricuspid valve is normal in appearance and function. There is mild to moderate t ricuspid regurgitation. Right ventricular systolic pressure of 49 mm Hg is consistent w ith moderate pulmonary hypertension. RPM monitor Hussain Escalona MD Cardiology: t ry dilt 30 q8 and then cd 120 if improved and tolerated Hussain Escalona MD Cardiology: Negative arterial study. Sees podiatry. s he had 3rd toe right foot amputated she may have PAD causing woulnd healing issues w e can do an angio and eval for occlusive PAD however she may have microvascular disease whcih may be inhibiting wound healing c an check with PODIATRY if angio is something they are interested in geting done Hussain Escalona MD Cardiology:no new is sues p tommy on getting back injections d id ok wiht podiatry surgery Hussain Escalona MD Cardiology: D APT PLAVIX WAS HELD FOR EVALUATING IF HER FATIGUE WIOULD IMPROVE AND DID NOT CHANGE SO WILL RESUME December 05, 2021 b ack on asa plavix February 05, 2022 C urrently on ASA/Brillinta for recent stent placement March 29, 2022 R emains on ASA/Brillinta no bleeding issues. Had ISR for LAD stent Hussain Escalona MD Cardiology: H er updated medication list for this problem includes: Atorvastatin 80 Mg Tablet (Atorvastatin) ..... Take 1 tablet by mouth once a day Vascepa 1 Gram Capsule (Icosapent ethyl) ..... Take 2 capsules by mouth twice daily Hussain Escalona MD Cardiology: D APT PLAVIX WAS HELD FOR EVALUATING IF HER FATIGUE WIOULD IMPROVE AND DID NOT CHANGE SO WILL RESUME December 05, 2021 b ack on asa plavix February 05, 2022 C urrently on ASA/Brillinta for recent stent placement March 29, 2022 R emains on ASA/Brillinta no bleeding issues. Had ISR for LAD stent Hussain Escalona MD Cardiology: o n ozempic has lost close to 50 pounds on Ozempe Hussain Escalona MD Cardiology: P atient with EF of 20%. ICD in place. Concern that worsening CHF/CMP d/t arrythmia or frequent PVCs will quantify with 24 hour monitor. She will continue medication therapy as noted above. February 05, 2022 W ill not be able to afford Kerendia, switched Lasix to Bumex bring her back in 1 week. Continue with Jardiance and Entresto. February 25, 2022 H as substantially improved with her volume status with her medications. Has given Karendia samples, reduce Bumex to once a day. Continue with Jardiance and Entresto.Check labs. March 29, 2022 Labs are okay, she is to take Bumex only once a day. Echo EF 68% on 01/07/22 Hussain Escalona MD Cardiology: M itral Valve: T he mitral valve is normal in appearance and function. Mild mitral valve regurgitation N oted on echo from 01/07 Hussain Escalona MD Cardiology: P atient with EF of 20%. ICD in place. Concern that worsening CHF/CMP d/t arrythmia or frequent PVCs will quantify with 24 hour monitor. She will continue medication therapy as noted above. February 05, 2022 W ill not be able to afford Kerendia, switched Lasix to Bumex bring her back in 1 week. Continue with Jardiance and Entresto. February 25, 2022 H as substantially improved with her volume status with her medications. Has given Karendia samples, reduce Bumex to once a day. Continue with Jardiance and Entresto.Check labs. Hussain Escalona MD Cardiology:01/07 Echo , [facility] N ormal left ventricular size. Mild concentric left ventricular hypertrophy. Left ventricular e jection fraction is estimated at 65 %. T he mitral valve is normal in appearance and function. Mild mitral valve regurgitation. A ortic valve leaflets appear structurally normal. T he tricuspid valve is normal in appearance and function. There is mild to moderate t ricuspid regurgitation. Right ventricular systolic pressure of 49 mm Hg is consistent w ith moderate pulmonary hypertension. RPM monitor Hussain Escalona MD Cardiology:Improvement of SOB, c ontinue CHF med rx Hussain Escalona MD Cardiology[RxRsp]: P atient with EF of 20%. ICD in place. Concern that worsening CHF/CMP d/t arrythmia or frequent PVCs will quantify with 24 hour monitor. She will continue medication therapy as noted above. February 05, 2022 W ill not be able to afford Kerendia, switched Lasix to Bumex bring her back in 1 week. Continue with Jardiance and Entresto. Hussain Escalona MD Cardiology[RxRsp]:Mi tral Valve: T he mitral valve is normal in appearance and function. Mild mitral valve regurgitation N oted on echo from 01/07 Hussain Escalona MD Cardiology[RxRsp]: D APT PLAVIX WAS HELD FOR EVALUATING IF HER FATIGUE WIOULD IMPROVE AND DID NOT CHANGE SO WILL RESUME December 05, 2021 b ack on asa plavix February 05, 2022 C urrently on ASA/Brillinta for recent stent placement Hussain Escalona MD Cardiology[RxRsp]: T he following medications were removed from the medication list: Furosemide 20 Mg Tablet (Furosemide) ..... Take 1 tablet by mouth once a day Her updated medication list for this problem includes: Bumetanide 1 Mg Tablet (Bumetanide) ..... 1 tablet by mouth twice a day take 1 tablet by mouth once a day Carvedilol 6.25 Mg Tablet (Carvedilol) ..... Take one tablet by mouth twice daily Aspirin 81 Mg Tablet,delayed Release (dr/ec) (Aspirin) ..... Take 1 tablet by mouth every day BP today: 123/84 P rior BP: 120/80 (01/25/2022) Labs Reviewed: C reat: 0.96 (01/18/2021) C hol: 143 (01/18/2021) HDL: 41 (01/18/2021) Hussain Escalona MD Cardiology:Patient w ith EF of 20%. ICD in place. Concern that worsening CHF/CMP d/t arrythmia or frequent PVCs will quantify with 24 hour monitor. She will continue medication therapy as noted above. Maggie Connor [facility] Cardiology:Patient p resents with bilateral pitting edema R>L, in setting of volume overload. Discussed with Dr. Obando and low likelihood for DVT as on aspirin and brilinta. Most likely r/t volume overload. We will do venous doppler however, for further evaluation. Maggie Bernsteinjaida [facility] Cardiology:Patient h as acute systolic HF EF of 20% per recent cath. Volume overload with bilateral lower extremity edema noted on exam today. Meds were adjusted. Losartan and cardizem stopped. Patient started Kerendia and Entresto. BB dose increased. She will f/u in 2 weeks or sooner if needed. T he following medications were removed from the medication list: Furosemide 20 Mg Tablet (Furosemide) ..... Take 1 tablet once a day Diltiazem Hcl 30 Mg Tablet (Diltiazem hcl) ..... Take 1 tablet by mouth every eight hours Losartan 25 Mg Tablet (Losartan) Metoprolol Succinate 100 Mg Tablet Extended Release 24 Hr (Metoprolol succinate) ..... Take 1 tablet by mouth daily Carvedilol 3.125 Mg Tablet (Carvedilol) Lisinopril 10 Mg Tablet (Lisinopril) ..... Take 1 tablet by mouth every day as directed Hydrochlorothiazide 25 Mg Tablet (Hydrochlorothiazide) ..... Take 1 tablet by mouth daily Clopidogrel 75 Mg Tablet (Clopidogrel) ..... Take 1 tablet by mouth daily Her updated medication list for this problem includes: Losartan 25 Mg Tablet (Losartan) Entresto 24-26 Mg Tablet (Sacubitril-valsartan) ..... Take 1 tablet by mouth twice a day Carvedilol 6.25 Mg Tablet (Carvedilol) ..... Take one tablet by mouth twice daily Brilinta 90 Mg Tablet (Ticagrelor) Aspirin 81 Mg Tablet,delayed Release (dr/ec) (Aspirin) ..... Take 1 tablet by mouth every day Nitroglycerin 0.4 Mg Tablet, Sublingual (Nitroglycerin) ..... 1 tablet under tongue as needed Maggie Nikolas [facility] Cardiology:Patient h as known history of CAD with recent in stent restenosis of the LAD and 2 new stent. She remain on asa, statin, BB and brilinta. She reports some chest pain with exertion, most likely secondary to her volume overload in setting of CHF, different that pain that took her to ER. She had f/u EKG and was seen with DR. Obando. T-wave abnormality/changes most likely post AL. We will adjust medications today with increase in BB dose. She will f/u in 2 weeks or sooner if needed. Encouraged patient if worsening or persistent symptoms to go to ER Maggiestewart Connor [facility] Cardiology:try dilt 30 q8 and then cd 120 if improved and tolerated Hussain Escalona MD Cardiology: D APT PLAVIX WAS HELD FOR EVALUATING IF HER FATIGUE WIOULD IMPROVE AND DID NOT CHANGE SO WILL RESUME December 05, 2021 b ack on asa plavix Hussain Escalona MD Cardiology: Her updated medication list for this problem includes: Vascepa 1 Gram Capsule (Icosapent ethyl) Atorvastatin 40 Mg Tablet (Atorvastatin) okay to hold lipitor for a month to see how you feel b ack on chol med December 05, 2021 Hussain Escalona MD Cardiology: N o LISHA with current CPAP treatment. Had home sleep study done on CPAP. Has sleep issues. The patient is using CPAP on a regular basis. The patient has been benefiting from therapy and should continue use. Hussain Escalona MD Cardiology: Negative arterial study. Sees podiatry. Will obtain a sensilase. Hussain Escalona MD Cardiology:on ozempic has lost 3 0 pounds Hussain Escalona MD Cardiology: P zakia to implant ILR. Reviewed pros and cons. She is agreeable in having it done. May be missing arrhythmia on tele monitor. May 05, 2019 Sinus PVCs on ILR. J deneen 2021 g etting palps will add dilt 30 q8 and seehow she does then increaset to dilt cd 120 qd Hussain Escalona MD Cardiology: N o LISHA with current CPAP treatment. Had home sleep study done on CPAP. Has sleep issues. The patient is using CPAP on a regular basis. The patient has been benefiting from therapy and should continue use. Hussain Escalona MD Cardiology Hussain Escalona MD Cardiology: 0 12/15/2017 Successful revascularization using the 3.25 x 15 mm Myrna Xience drug-eluting stent 3.25 x 15 mm Myrna Xience. LAD Hussain Escalona MD Cardiology: Negative arterial study. Sees podiatry. Will obtain a sensilase. Hussain Escalona MD Cardiology: S uccessful AV node slow pathway ablation on 11/25/2019 R emains on BB January 17, 2021 D evice check recently demonstrated in December episodes of SVT, reviewed with her, regarding this she does not have enough episodes to warrant repeat of ablation procedure. August 22, 2021 r are intermittent palpitaions Hussain Escalona MD Cardiology:Had covid 2 months ago. She was vaccinated, no booster yet. Hussain Escalona MD Cardiology:A1c is 9. Check sensi lase for PAD Hussain Escalona MD Cardiology: Negative arterial study. Hussain Escalona MD Cardiology: N o LISHA with current CPAP treatment. Had home sleep study done on CPAP. Has sleep issues. The patient is using CPAP on a regular basis. The patient has been benefiting from therapy and should continue use. Hussain Escalona MD Cardiology: v accinated Hussain Escalona MD Cardiology:She needs to be seen by an endocronologist will have her see Olamide Ramírez here for endo. Has high A1c at 10.9 H er updated medication list for this problem includes: Aspirin 81 Mg Tablet,delayed Release (dr/ec) (Aspirin) ..... Take 1 tablet by mouth daily Admelog U-100 Insulin Lispro 100 Unit/ml Solution (Insulin lispro) ..... Sliding scale Lisinopril 10 Mg Tablet (Lisinopril) ..... Take 1 tablet by mouth once a day as directed Metformin 1,000 Mg Tablet (Metformin) Hussain Escalona MD Cardiology:TSH was o lan W il checke thryodi levels H er updated medication list for this problem includes: Levo-t 100 Mcg Tablet (Levothyroxine) ..... Take 1 once a day Hussain Escalona MD Cardiology:Diabeteic nerve conduction study was performed, Dr Camacho, and was told she has recuded nerve conduction H er updated medication list for this problem includes: Aspirin 81 Mg Tablet,delayed Release (dr/ec) (Aspirin) ..... Take 1 tablet by mouth daily Admelog U-100 Insulin Lispro 100 Unit/ml Solution (Insulin lispro) ..... Sliding scale Lisinopril 10 Mg Tablet (Lisinopril) ..... Take 1 tablet by mouth once a day as directed Metformin 1,000 Mg Tablet (Metformin) Hussain Escalona MD Cardiology: D APT PLAVIX WAS HELD FOR EVALUATING IF HER FATIGUE WIOULD IMPROVE AND DID NOT CHANGE SO WILL RESUME Hussain Escalona MD Cardiology: v accinated Hussain Escalona MD Cardiology: 0 12/15/2017 Successful revascularization using the 3.25 x 15 mm Myrna Xience drug-eluting stent 3.25 x 15 mm Myrna Xience. LAD Hussain Escalona MD Cardiology: A ICD per SK O n Toprol XL Hussain Escalona MD Cardiology: N o LISHA while using CPAP based on sleep study which is good news. Not anemic. Thyroid WNL. ON Thyroid replacement. C ould be allergic to knee replacement, which may be a far fetched thought, however she has been feeling sick ever since the knee replacement went in. Will d/c Plavix and Lipitor and Omeprazole and see how she does in 2 weeks. IF no change, I do not have any other recommendations. July 21, 2019 I f after seeing orthopedist there is no improvement or plans for management. The only other option is to d/c beta blockade and see if her level of fatigue improves as a side effect of BB. As a consequence her palpitations will probably increase. Had no change in Sx coming off of Plavix, Lipitor, and Omeprazole. M 2019 R ESUME PLAVIX AND LIPITOR January 17, 2021 W ill review bloodwork Hussain Escalona MD Cardiology: S uccessful AV node slow pathway ablation on 11/25/2019 R emains on BB January 17, 2021 D evice check recently demonstrated in December episodes of SVT, reviewed with her, regarding this she does not have enough episodes to warrant repeat of ablation procedure. Hussain Escalona MD Cardiology:Kvgn check e thryodi levels H er updated medication list for this problem includes: Levo-t 100 Mcg Tablet (Levothyroxine) ..... Take 1 once a day Hussain Escalona MD Cardiology:okay to h old lipitor for a month to see how you feel Hussain Escalona MD Cardiology:managed b y pcp H er updated medication list for this problem includes: Levo-t 100 Mcg Oral Tablet (Levothyroxine sodium) ..... Take one daily Hussain Escalona MD Cardiology: T he patient continues to walk with a cane and is experiencing falls due to nerve damage following knee surgery\ November 15, 2020 c onsider coming off lipitor even though it is low dosage Hussain Escalona MD Cardiology: D APT PLAVIX WAS HELD FOR EVALUATING IF HER FATIGUE WIOULD IMPROVE AND DID NOT CHANGE SO WILL RESUME Hussain Escalona MD Cardiology: N o LISHA with current CPAP treatment. Hussain Escalona MD Cardiology: 0 12/15/2017 Successful revascularization using the 3.25 x 15 mm Myrna Xience drug-eluting stent 3.25 x 15 mm Myrna Xience. LAD Hussain Escalona MD Cardiology: A ICD per SK Hussain Escalona MD Cardiology: Negative arterial study. Hussain Escalona MD Cardiology:vaccinated Hussain Escalona MD Cardiology follow up :AICD per Al Escalona MD Cardiology follow up :The patient continues to walk with a cane and is experiencing falls due to nerve damage following knee surgery Hussain Escalona MD Cardiology follow up : L abs Reviewed: H gBA1c: 9.4 (08/06/2018) Creat: 0.70 (12/10/2019) Her updated medication list for this problem includes: Admelog 100 Unit/ml Subcutaneous Solution (Insulin lispro) ..... Sliding scale Aspirin 81mg Ec Low Dose Tablets (Aspirin) ..... Take 1 tablet by mouth daily Lisinopril 10mg Tablets (Lisinopril) ..... Take 1 tablet by mouth twice daily Metformin Hcl 1000 Mg Oral Tablet (Metformin hcl) Hussain Escalona MD Cardiology follow up : B P today: 128/82 P rior BP: 132/95 (01/21/2020) Labs Reviewed: C reat: 0.70 (12/10/2019) C hol: 125 (08/06/2018) HDL: 39 (08/06/2018) Her updated medication list for this problem includes: Furosemide 20 Mg Oral Tablet (Furosemide) ..... Take one tablet daily. Hydrochlorothiazide 25mg Tablets (Hydrochlorothiazide) ..... Take 1 tablet by mouth daily Aspirin 81mg Ec Low Dose Tablets (Aspirin) ..... Take 1 tablet by mouth daily Lisinopril 10mg Tablets (Lisinopril) ..... Take 1 tablet by mouth twice daily Toprol Xl 100 Mg Oral Tablet Extended Release 24 Hour (Metoprolol succinate) ..... One tab daily Hussain Escalona MD Cardiology follow up : 0 12/15/2017 Successful revascularization using the 3.25 x 15 mm Myrna Xience drug-eluting stent 3.25 x 15 mm Myrna Xience. LAD Hussain Escalona MD Electrophysiology ho spital follow up : H er updated medication list for this problem includes: Clopidogrel 75mg Tablets (Clopidogrel bisulfate) ..... Take 1 tablet by mouth daily Nitroglycerin 0.4mg Sub Tab 25 (Nitroglycerin) ..... One tablet under tongue as needed for chest pain Aspirin 81mg Ec Low Dose Tablets (Aspirin) ..... Take 1 tablet by mouth daily Lisinopril 10mg Tablets (Lisinopril) ..... Take 1 tablet by mouth twice daily Toprol Xl 100 Mg Oral Tablet Extended Release 24 Hour (Metoprolol succinate) ..... One tab daily Petra Tobar MD Cardiology - complet e: I ncision healing well from icd implant and removal of loop monitor 12/15/2019 n ormal device function Orders: Shane de anda No Charge (CPT-63628) Ponce Garcia Cardiology: B P today: 130/93 P rior BP: 153/101 (09/22/2019) Labs Reviewed: C reat: 0.70 (12/10/2019) C hol: 125 (08/06/2018) HDL: 39 (08/06/2018) Her updated medication list for this problem includes: Furosemide 20 Mg Oral Tablet (Furosemide) ..... Take one tablet daily. Hydrochlorothiazide 25mg Tablets (Hydrochlorothiazide) ..... Take 1 tablet by mouth daily Aspir-81 81 Mg Oral Tablet Delayed Release (Aspirin) ..... Take one daily Lisinopril 10mg Tablets (Lisinopril) ..... Take 1 tablet by mouth twice daily Toprol Xl 100 Mg Oral Tablet Extended Release 24 Hour (Metoprolol succinate) ..... One tab daily Hussain Escalona MD Cardiology: N o LISHA with current CPAP treatment. Hussain Escalona MD Cardiology: 8 Successful revascularization using the 3.25 x 15 mm Myrna Xience drug-eluting stent 3.25 x 15 mm Myrna Xience. Hussain Escalona MD Cardiology: P robably non cardiac. No ISR Hussain Escalona MD Cardiology: D APT PLAVIX WAS HELD FOR EVALUATING IF HER FATIGUE WIOULD IMPROVE AND DID NOT CHANGE SO WILL RESUME Hussain Escalona MD Cardiology: T he patient will need ICD implantation for secondary prevention of sudden cardiac due to polymorphic ventricular t achycardia and fibrillation that was sustained and induced during the this EP procedure. The patient is recommended to have ICD implanted. The risks and benefits have been discussed with the patient in this shared decision making encounter. A copy of the following evidence based decision tool on ICD has been given to the patient. [email or web address]-[email or web address] May be Appropriate I CD for SECONDARY PREVENTION ( ACC ICD #7) Click here to view full ACC AUC document F or a patient with: L VEF > 36% C AD V F or hemodynamically unstable VT < 48 h (acute) post-elective revasc N o evidence for acute coronary occlusion, restenosis, preceding infarct, or other clearly reversible cause Hussain Escalona MD Cardiology: Negative arterial study. Hussain Escalona MD TeleHealth- schedule ICD :The patient will need ICD implantation for secondary prevention of sudden cardiac due to polymorphic ventricular t achycardia and fibrillation that was sustained and induced during the this EP procedure. The patient is recommended to have ICD implanted. The risks and benefits have been discussed with the patient in this shared decision making encounter. A copy of the following evidence based decision tool on ICD has been given to the patient. [email or web address]-[email or web address] May be Appropriate I CD for SECONDARY PREVENTION ( ACC ICD #7) Click here to view full ACC AUC document F or a patient with: L VEF > 36% C AD V F or hemodynamically unstable VT < 48 h (acute) post-elective revasc N o evidence for acute coronary occlusion, restenosis, preceding infarct, or other clearly reversible cause H er updated medication list for this problem includes: Clopidogrel 75mg Tablets (Clopidogrel bisulfate) ..... Take 1 tablet by mouth daily Nitroglycerin 0.4mg Sub Tab 25 (Nitroglycerin) ..... One tablet under tongue as needed for chest pain Aspir-81 81 Mg Oral Tablet Delayed Release (Aspirin) ..... Take one daily Lisinopril 10mg Tablets (Lisinopril) ..... Take 1 tablet by mouth twice daily Toprol Xl 100 Mg Oral Tablet Extended Release 24 Hour (Metoprolol succinate) ..... One tab daily Orders: A ICD Implant - [facility] (*) 9 9214 MOD Complex (CPT-81241) Giuseppe Pierce [facility]- schedule ICD : H er updated medication list for this problem includes: Furosemide 20 Mg Oral Tablet (Furosemide) ..... Take one tablet daily. Hydrochlorothiazide 25mg Tablets (Hydrochlorothiazide) ..... Take 1 tablet by mouth daily Aspir-81 81 Mg Oral Tablet Delayed Release (Aspirin) ..... Take one daily Lisinopril 10mg Tablets (Lisinopril) ..... Take 1 tablet by mouth twice daily Toprol Xl 100 Mg Oral Tablet Extended Release 24 Hour (Metoprolol succinate) ..... One tab daily [facility]- schedule ICD Giusep[facility]- schedule ICD :Successful AV node slow pathway ablation on 11/25/2019 Her updated medication list for this problem includes: Clopidogrel 75mg Tablets (Clopidogrel bisulfate) ..... Take 1 tablet by mouth daily Nitroglycerin 0.4mg Sub Tab 25 (Nitroglycerin) ..... One tablet under tongue as needed for chest pain Aspir-81 81 Mg Oral Tablet Delayed Release (Aspirin) ..... Take one daily Lisinopril 10mg Tablets (Lisinopril) ..... Take 1 tablet by mouth twice daily Toprol Xl 100 Mg Oral Tablet Extended Release 24 Hour (Metoprolol succinate) ..... One tab daily Giuseppe Pierce Tele[facility]: H er updated medication list for this problem includes: Furosemide 20 Mg Oral Tablet (Furosemide) ..... Take one tablet daily. Hydrochlorothiazide 25mg Tablets (Hydrochlorothiazide) ..... Take 1 tablet by mouth daily Aspir-81 81 Mg Oral Tablet Delayed Release (Aspirin) ..... Take one daily Lisinopril 10mg Tablets (Lisinopril) ..... Take 1 tablet by mouth twice daily Toprol Xl 100 Mg Oral Tablet Extended Release 24 Hour (Metoprolol succinate) ..... One tab daily [facility] TeleHealth: H er updated medication list for this problem includes: Clopidogrel 75mg Tablets (Clopidogrel bisulfate) ..... Take 1 tablet by mouth daily Nitroglycerin 0.4mg Sub Tab 25 (Nitroglycerin) ..... One tablet under tongue as needed for chest pain Aspir-81 81 Mg Oral Tablet Delayed Release (Aspirin) ..... Take one daily Lisinopril 10mg Tablets (Lisinopril) ..... Take 1 tablet by mouth twice daily Toprol Xl 100 Mg Oral Tablet Extended Release 24 Hour (Metoprolol succinate) ..... One tab daily [facility] TeleHealth: nonsustained VT & sustained SVT C annot be on class 1 antiarrythmic medication due to CAD D iscussed need to EP ablation, pt agrees with this plan. H er updated medication list for this problem includes: Clopidogrel 75mg Tablets (Clopidogrel bisulfate) ..... Take 1 tablet by mouth daily Nitroglycerin 0.4mg Sub Tab 25 (Nitroglycerin) ..... One tablet under tongue as needed for chest pain Aspir-81 81 Mg Oral Tablet Delayed Release (Aspirin) ..... Take one daily Lisinopril 10mg Tablets (Lisinopril) ..... Take 1 tablet by mouth twice daily Toprol Xl 100 Mg Oral Tablet Extended Release 24 Hour (Metoprolol succinate) ..... One tab daily [facility] Cardiology: Negative arterial study. Hussain Escalona MD Cardiology: H er updated medication list for this problem includes: Furosemide 20 Mg Oral Tablet (Furosemide) ..... Take one tablet daily. Hydrochlorothiazide 25mg Tablets (Hydrochlorothiazide) ..... Take 1 tablet by mouth daily Aspir-81 81 Mg Oral Tablet Delayed Release (Aspirin) ..... Take one daily Lisinopril 10mg Tablets (Lisinopril) ..... Take 1 tablet by mouth twice daily Toprol Xl 100 Mg Oral Tablet Extended Release 24 Hour (Metoprolol succinate) ..... One tab daily BP today: 153/101 P rior BP: 124/84 (08/10/2019) Labs Reviewed: C reat: 0.82 (04/01/2019) C hol: 125 (08/06/2018) HDL: 39 (08/06/2018) Hussain Escalona MD Cardiology: N o LISHA while using CPAP based on sleep study which is good news. Not anemic. Thyroid WNL. ON Thyroid replacement. C ould be allergic to knee replacement, which may be a far fetched thought, however she has been feeling sick ever since the knee replacement went in. Will d/c Plavix and Lipitor and Omeprazole and see how she does in 2 weeks. IF no change, I do not have any other recommendations. July 21, 2019 I f after seeing orthopedist there is no improvement or plans for management. The only other option is to d/c beta blockade and see if her level of fatigue improves as a side effect of BB. As a consequence her palpitations will probably increase. Had no change in Sx coming off of Plavix, Lipitor, and Omeprazole. M 2019 R ESUME PLAVIX AND LIPITOR Hussain Escalona MD Cardiology: D APT PLAVIX WAS HELD FOR EVALUATING IF HER FATIGUE WIOULD IMPROVE AND DID NOT CHANGE SO WILL RESUME Hussain Escalona MD Cardiology: P zakia to implant ILR. Reviewed pros and cons. She is agreeable in having it done. May be missing arrhythmia on tele monitor. May 05, 2019 Sinus PVCs on ILR. Hussain Escalona MD Cardiology: N o LISHA with current CPAP treatment. Hussain Escalona MD Cardiology: nonsustained VT & sustained SVT C annot be on class 1 antiarrythmic medication due to CAD D iscussed need to EP ablation, pt agrees with this plan. O rders: C BC (INCLUDES DIFF/PLT) (6399) C OMPREHENSIVE METABOLIC PANEL, W/EGFR (34881) L IPID PANEL (7600) P ROTHROMBIN TIME WITH INR (8847) P artial Thromboplastin Time, Activated (763) T HYROID PANEL (1506) 9 9215 HIGH Complex (CPT-69266) C omplete Echo (CPT-99813) A BLATION w/ Anesthesia (*) C T Cardiac with contrast (Pre-Ablation) (CPT-12435) Her updated medication list for this problem includes: Plavix 75 Mg Oral Tablet (Clopidogrel bisulfate) ..... Take one tablet daily Nitroglycerin 0.4mg Sub Tab 25 (Nitroglycerin) ..... One tablet under tongue as needed for chest pain Aspir-81 81 Mg Oral Tablet Delayed Release (Aspirin) ..... Take one daily Lisinopril 10mg Tablets (Lisinopril) ..... Take 1 tablet by mouth twice daily Toprol Xl 100 Mg Oral Tablet Extended Release 24 Hour (Metoprolol succinate) ..... One tab daily Hussain Escalona MD Cardiology: u symptoms will get cath done despite nl stress has increasing frequency Summary 1 . Normal myocardial perfusion imaging after vasodilator stress with Regadenoson. 2 . Normal left ventricular systolic function with a calculated ejection fraction of 67%. 3 . No obvious significant scintigraphic evidence of myocardial ischemia or scar. . ................................................... ...............Sam Javier MD August 05, 2018 2:12 PM October 2018 C ath was done, showed patent stent. C ontinue med rx I MPRESSION: 1 . widely patent stent in the LAD with negligible in-stent r estenosis. 2 . widely patent circulation in the remaining vasculature of the c ircumflex in the RCA vessels. 3 . Normal left ventricular systolic function. 4 . Minimally elevated LVEDP and mildly elevated systemic blood p ressure. 5 . widely patent renals. R ECOMMENDATION: 1 . Continue dual antiplatelet therapy in the setting of multiple risk factors for CAD. 2 . Diabetes control. 3 . Blood pressure management. 4 . workup for other noncardiac causes of chest pain. She may have a denise reflux symptoms as well, causing her symptoms. Hussain Escalona MD Cardiology: H er updated medication list for this problem includes: Furosemide 20 Mg Oral Tablet (Furosemide) ..... Take one tablet daily. Hydrochlorothiazide 25mg Tablets (Hydrochlorothiazide) ..... Take 1 tablet by mouth daily Aspir-81 81 Mg Oral Tablet Delayed Release (Aspirin) ..... Take one daily Lisinopril 10mg Tablets (Lisinopril) ..... Take 1 tablet by mouth twice daily Toprol Xl 100 Mg Oral Tablet Extended Release 24 Hour (Metoprolol succinate) ..... One tab daily Petra Tobar MD Cardiology: H er updated medication list for this problem includes: Furosemide 20 Mg Oral Tablet (Furosemide) ..... Take one tablet daily. Hydrochlorothiazide 25mg Tablets (Hydrochlorothiazide) ..... Take 1 tablet by mouth daily Aspir-81 81 Mg Oral Tablet Delayed Release (Aspirin) ..... Take one daily Lisinopril 10mg Tablets (Lisinopril) ..... Take 1 tablet by mouth twice daily Toprol Xl 100 Mg Oral Tablet Extended Release 24 Hour (Metoprolol succinate) ..... One tab daily Petra Tobar MD Cardiology: H er updated medication list for this problem includes: Plavix 75 Mg Oral Tablet (Clopidogrel bisulfate) ..... Take one tablet daily Nitroglycerin 0.4mg Sub Tab 25 (Nitroglycerin) ..... One tablet under tongue as needed for chest pain Aspir-81 81 Mg Oral Tablet Delayed Release (Aspirin) ..... Take one daily Lisinopril 10mg Tablets (Lisinopril) ..... Take 1 tablet by mouth twice daily Toprol Xl 100 Mg Oral Tablet Extended Release 24 Hour (Metoprolol succinate) ..... One tab daily Petra Tobar MD Cardiology: nonsusta ined VT & sustained SVT C annot be on class 1 antiarrythmic medication due to CAD D iscussed need to EP ablation, pt agrees with this plan. O rders: C BC (INCLUDES DIFF/PLT) (6198) C OMPREHENSIVE METABOLIC PANEL, W/EGFR (64980) L IPID PANEL (7220) P ROTHROMBIN TIME WITH INR (8847) P artial Thromboplastin Time, Activated (763) T HYROID PANEL (2957) 9 9215 HIGH Complex (CPT-50521) C omplete Echo (CPT-78912) A BLATION w/ Anesthesia (*) C T Cardiac with contrast (Pre-Ablation) (CPT-[id number]) Her updated medication list for this problem includes: Plavix 75 Mg Oral Tablet (Clopidogrel bisulfate) ..... Take one tablet daily Nitroglycerin 0.4mg Sub Tab 25 (Nitroglycerin) ..... One tablet under tongue as needed for chest pain Aspir-81 81 Mg Oral Tablet Delayed Release (Aspirin) ..... Take one daily Lisinopril 10mg Tablets (Lisinopril) ..... Take 1 tablet by mouth twice daily Toprol Xl 100 Mg Oral Tablet Extended Release 24 Hour (Metoprolol succinate) ..... One tab daily Petra Tobar MD Cardiology: N o LISHA while using CPAP based on sleep study which is good news. Not anemic. Thyroid WNL. ON Thyroid replacement. C ould be allergic to knee replacement, which may be a far fetched thought, however she has been feeling sick ever since the knee replacement went in. Will d/c Plavix and Lipitor and Omeprazole and see how she does in 2 weeks. IF no change, I do not have any other recommendations. July 21, 2019 I f after seeing orthopedist there is no improvement or plans for management. The only other option is to d/c beta blockade and see if her level of fatigue improves as a side effect of BB. As a consequence her palpitations will probably increase. Had no change in Sx coming off of Plavix, Lipitor, and Omeprazole. Sergey Evans Cardiology: H ad sleep study 10 years ago. Will repeat since she had an AL and has snoring. July 21, 2019 F ew events were noted during the study, however, the amount of the events did not constitute a diagnosis of LISHA Hussain Escalona MD Cardiology: M ay be related to LISHA. Nl LVEF. PFTs WNL. 6 minute walk WNL. Few events were noted during the study, however, the amount of the events did not constitute a diagnosis of LISHA Hussain Escalona MD Cardiology: Negative arterial study. Hussain Escalona MD Cardiology: D APT ASA plavix. Hussain Escalona MD Cardiology: N o LISHA while using CPAP based on sleep study which is good news. Not anemic. Thyroid WNL. ON Thyroid replacement. C ould be allergic to knee replacement, which may be a far fetched thought, however she has been feeling sick ever since the knee replacement went in. Will d/c Plavix and Lipitor and Omeprazole and see how she does in 2 weeks. IF no change, I do not have any other recommendations. Hussain Escalona MD Cardiology follow up :No LISHA while using CPAP based on sleep study which is good news. Not anemic. Thyroid WNL. ON Thyroid replacement. C ould be allergic to knee replacement, which may be a far fetched thought, however she has been feeling sick ever since the knee replacement went in. Will d/c Plavix and Lipitor and Omeprazole and see how she does in 2 weeks. IF no change, I do not have any other recommendations. Hussain Escalona MD Cardiology follow up :No LISHA with current CPAP treatment. Hussain Escalona MD Cardiology: D APT ASA plavix. Hussain Escalona MD Cardiology: P zakia to implant ILR. Reviewed pros and cons. She is agreeable in having it done. May be missing arrhythmia on tele monitor. May 05, 2019 Sinus PVCs on ILR. Hussain Escalona MD Cardiology:Still has fatigue, insulin pump has been adjusted by prior. Check thyroid. Hussain Escalona MD Cardiology: O n CPAP for mild LISHA. The patient is using CPAP on a regular basis. The patient has been benefiting from therapy and should continue use. May 05, 2019 W latia arrange for her to have CPAP adequacy of treatment eval with home sleep study. Hussain Escalona MD Cardiology: H er updated medication list for this problem includes: Admelog 100 Unit/ml Subcutaneous Solution (Insulin lispro) ..... Sliding scale Aspir-81 81 Mg Oral Tablet Delayed Release (Aspirin) ..... Take one daily Lisinopril 10mg Tablets (Lisinopril) ..... Take 1 tablet by mouth twice daily Metformin Hcl 1000 Mg Oral Tablet (Metformin hcl) Hussain Escalona MD Cardiology: Negative arterial study. Hussain Escalona MD Cardiology:Hold lipitor for 2-3 weeks. Hussain Escalona MD Cardiology: P robably non cardiac. No ISR Hussain Escalona MD Cardiology: D APT ASA plavix. Hussain Escalona MD Cardiology:Plan to i mplant ILR. Reviewed pros and cons. She is agreeable in having it done. May be missing arrhythmia on tele monitor. Hussain Escalona MD Cardiology: O n CPAP for mild LISHA. The patient is using CPAP on a regular basis. The patient has been benefiting from therapy and should continue use. Hussain Escalona MD Cardiology Hospital follow up : H er updated medication list for this problem includes: Hydrochlorothiazide 25 Mg Oral Tablet (Hydrochlorothiazide) ..... One tab daily Aspir-81 81 Mg Oral Tablet Delayed Release (Aspirin) ..... Take one daily Lisinopril 10 Mg Oral Tablet (Lisinopril) ..... Take one tablet twice daily Metoprolol Tartrate 50 Mg Oral Tablet (Metoprolol tartrate) ..... Take one every 12 hours Hussain Escalona MD Cardiology Hospital follow up : D APT ASA plavix. Hussain Escalona MD Cardiology Hospital follow up :Probably non cardiac. No ISR Hussain Escalona MD Cardiology Hospital follow up :Increased metoprolol to 50mg TID H er updated medication list for this problem includes: Plavix 75 Mg Oral Tablet (Clopidogrel bisulfate) ..... Take one tablet daily Nitroglycerin 0.4 Mg Sublingual Tablet Sublingual (Nitroglycerin) ..... Take one as neede for chest pain Aspir-81 81 Mg Oral Tablet Delayed Release (Aspirin) ..... Take one daily Lisinopril 10 Mg Oral Tablet (Lisinopril) ..... Take one tablet twice daily Metoprolol Tartrate 50 Mg Oral Tablet (Metoprolol tartrate) ..... Take one every 12 hours Hussain Escalona MD Cardiology Hospital follow up : u sa symptoms will get cath done despite nl stress has increasing frequency Summary 1 . Normal myocardial perfusion imaging after vasodilator stress with Regadenoson. 2 . Normal left ventricular systolic function with a calculated ejection fraction of 67%. 3 . No obvious significant scintigraphic evidence of myocardial ischemia or scar. . ................................................... ...............Sam Javier MD August 05, 2018 2:12 PM December 16, 2018 C ath was done, showed patent stent. C ontinue med rx Hussain Escalona MD Cardiology Hospital follow up : Negative arterial study. Hussain Escalona MD Cardiology: M ay have ISR s. Similar discomfort but less intense while doing laundry. p zakia cath T he risks and benefits of the procedure, including but not limited the risk of heart attack, , stroke, bleeding, kidney failure, and loss of limb as well as the alternative of continued medical therapy, stress testing or bypass surgery were discussed with the patient and any present family members and the patient wishes to proceed with cardiac cath and stenting. The patient and family had opportunity to discuss this with us. Written material including informed consent was given out. Hussain Escalona MD Cardiology: H er updated medication list for this problem includes: Atorvastatin Calcium 20 Mg Oral Tablet (Atorvastatin calcium) ..... Take one daily Hussain Escalona MD Cardiology: B P today: 120/80 P rior BP: 142/88 (07/24/2018) Labs Reviewed: C reat: 0.69 (08/06/2018) C hol: 125 (08/06/2018) HDL: 39 (08/06/2018) Her updated medication list for this problem includes: Hydrochlorothiazide 25 Mg Oral Tablet (Hydrochlorothiazide) ..... One tab daily Aspir-81 81 Mg Oral Tablet Delayed Release (Aspirin) ..... Take one daily Lisinopril 10 Mg Oral Tablet (Lisinopril) ..... Take one tablet twice daily Metoprolol Tartrate 50 Mg Oral Tablet (Metoprolol tartrate) ..... Take one every 12 hours Hussain Escalona MD Cardiology:a1c is hi gh and had metformin icresased T he following medications were removed from the medication list: Humalog Solution Cartridge (Insulin lispro soct) ..... Sliding scale & #13;Her updated medication list for this problem includes: Admelog 100 Unit/ml Subcutaneous Solution (Insulin lispro) ..... Sliding scale Aspir-81 81 Mg Oral Tablet Delayed Release (Aspirin) ..... Take one daily Lisinopril 10 Mg Oral Tablet (Lisinopril) ..... Take one tablet twice daily Hussain Esclaona MD Cardiology: Negative arterial study. Hussain Escalona MD Cardiology: O n CPAP for mild LISHA. The patient is using CPAP on a regular basis. The patient has been benefiting from therapy and should continue use. Hussain Escalona MD Cardiology:[facility] sympt oms will get cath done despite nl stress has increasing frequency Summary 1 . Normal myocardial perfusion imaging after vasodilator stress with Regadenoson. 2 . Normal left ventricular systolic function with a calculated ejection fraction of 67%. 3 . No obvious significant scintigraphic evidence of myocardial ischemia or scar. . ................................................... ...............Sam Javier MD August 05, 2018 2:12 PM Hussain Escalona MD Cardiology follow up : D APT ASA plavix. Hussain Escalona MD Cardiology follow up :INTERVENTION: 12/[facility] 1 . Lesion attempted is proximal LAD. 2 . Guiding catheter, 6-Lao CLS 3.5. 3 . Guidewire, 0.014 [employer]. 4 . Balloon used is a 2.5 x 20 mm Emerge. 5 . Stent used is a 3.25 x 15 mm Myrna Xience. 6 . Number of inflations, 2. 7 . Maximum pressure 12 atmospheres. Maximum duration 60 seconds. 8 . Preprocedure stenosis 95%, postprocedure 0. Hussain Escalona MD Cardiology follow up: Negative a rterial study. Hussain Escalona MD Cardiology follow up :REcalls last A1C was 10 at PCP's office. H er updated medication list for this problem includes: Humalog Solution Cartridge (Insulin lispro soct) ..... Sliding scale Aspir-81 81 Mg Oral Tablet Delayed Release (Aspirin) ..... Take one daily Lisinopril 10 Mg Oral Tablet (Lisinopril) ..... Take one tablet twice daily Metformin Hcl 500 Mg Oral Tablet (Metformin hcl) ..... Take one twice daily Hussain Escalona MD Cardiology follow up :May have ISR eval with stress. Similar discomfort but less intense while doing laundry. Hussain Escalona MD Cardiology follow up :On CPAP for mild LISHA. The patient is using CPAP on a regular basis. The patient has been benefiting from therapy and should continue use. Hussain Escalona MD Cardiology follow up :Ongoing for the last week. WIll order head CT. Hussain Escalona MD Cardiology follow up :Has leg cramps. Will check RONY. Hussain Escalona MD Cardiology follow up:DAPT ASA pl avix. Hussain Escalona MD Cardiology follow up :May be related to LISHA. Nl LVEF. PFTs WNL. 6 minute walk WNL. Hussain Escalona MD Cardiology follow up :Mild LISHA on sleep study. However, she is feeling very fatigued. Will need to get titration study. Hussain Escalona MD Cardiology New Patie nt:Will check chemical stress test and obtain echo for LV function and valvular disease. Hussain Escalona MD Cardiology New Patie nt:Need to exclude ventricular arrhythmias. Check tele sentry and echo. Hussain Escalona MD Cardiology New Patie nt:Had sleep study 10 years ago. Will repeat since she had an AL and has snoring. Hussain Escalona MD Cardiology New Patie nt:Likely due to recent AL. Check sleep study and PFTs. Hussain Escalona MD Cardiology New Patie nt:Add HCTZ 25 mg. B P today: 178/110 Her updated medication list for this problem includes: Aspir-81 81 Mg Oral Tablet Delayed Release (Aspirin) ..... Take one daily Lisinopril 40 Mg Oral Tablet (Lisinopril) ..... Take one daily Metoprolol Tartrate 50 Mg Oral Tablet (Metoprolol tartrate) ..... Take one every 12 hours Orders: Filiberto DUMONT (CPT-[id number]) Hussain Escalona MD Cardiology New Patie nt:Followed by PCP. H er updated medication list for this problem includes: Humalog Solution Cartridge (Insulin lispro soct) ..... Sliding scale Aspir-81 81 Mg Oral Tablet Delayed Release (Aspirin) ..... Take one daily Lisinopril 40 Mg Oral Tablet (Lisinopril) ..... Take one daily Metformin Hcl 500 Mg Oral Tablet (Metformin hcl) ..... Take one twice daily Hussain Escalona MD Cardiology New Patie nt:Check lipids and LFTs. H er updated medication list for this problem includes: Atorvastatin Calcium 20 Mg Oral Tablet (Atorvastatin calcium) ..... Take one daily Hussain Escalona MD Cardiology New Patie nt:ASA and Brilinta at present for LAD Stent. Will be switching to Plavix. Hussain Escalona MD Date Name PROTHROMBIN TIME WIT H INR LIPID PANEL CBC (INCLUDES DIFF/P LT) BASIC METABOLIC PANE L W/EGFR Complete Echo Complete Echo PROTHROMBIN TIME WIT H INR LIPID PANEL CBC (INCLUDES DIFF/P LT) BASIC METABOLIC PANE L W/EGFR AIF Diagnostic - [facility] V HEMOGLOBIN A1c BASIC METABOLIC PANE L W/EGFR B TYPE NATRIURETIC P EPTIDE (BNP) RPM (remote patient monitoring) Holter Monitor 24 Hr Venous Doppler Bilat eral LE RPM (remote patient monitoring) D-DIMER, QUANTITATIV E CBC (INCLUDES DIFF/P LT) IRON AND TOTAL IRON BINDING CAPACITY FERRITIN CRP, high sensitivit y LIPID PANEL PROBNP, N TERMINAL EKG Sleep Study Home Arterial - SENSILASE Complete Echo CBC (INCLUDES DIFF/P LT) HEMOGLOBIN A1c TSH, free T4, total T3 LIPID PANEL COMPREHENSIVE METABO LIC PANEL, W/EGFR TSH, free T4, total T3 HEMOGLOBIN A1c LIPID PANEL COMPREHENSIVE METABO LIC PANEL, W/EGFR URINALYSIS, COMPLETE W/REFLEX TO CULTURE CBC (INCLUDES DIFF/P LT) COMPREHENSIVE METABO LIC PANEL, W/EGFR Partial Thromboplast in Time, Activated PROTHROMBIN TIME WIT H INR AICD Implant - [facility] COVID19 nasal swab ( LC) COVID19 nasal swab ( LC) BASIC METABOLIC PANE L W/EGFR CBC (INCLUDES DIFF/P LT) PARTIAL THROMBOPLAST IN TIME, ACTIVATED PROTHROMBIN TIME WIT H INR CT Cardiac with cont rast (Pre-Ablation) ABLATION w/ Anesthes ia Complete Echo THYROID PANEL Partial Thromboplast in Time, Activated PROTHROMBIN TIME WIT H INR LIPID PANEL COMPREHENSIVE METABO LIC PANEL, W/EGFR CBC (INCLUDES DIFF/P LT) DLCO - 53582 FRC - 32741 FVC - 48878 Sleep Study Home THYROID PANEL WITH T SH, 3RD GENERATION IRON AND TOTAL IRON BINDING CAPACITY FERRITIN CBC (INCLUDES DIFF/P LT) BASIC METABOLIC PANE L W/EGFR Loop Rec Implant - G C PROTHROMBIN TIME WIT H INR LIPID PANEL CBC (INCLUDES DIFF/P LT) BASIC METABOLIC PANE L W/EGFR Cardiac Cath - Left - GC Coronary Stent - GC Stress Regadenoson LIPID PANEL PROBNP, N TERMINAL BASIC METABOLIC PANE L W/EGFR URINALYSIS, RANDOM, MICROALB/CREATININE HEMOGLOBIN A1c BASIC METABOLIC PANE L W/EGFR TSH, 3RD GENERATION W/REFLEX TO FT4 CT Head with,without contrast Arterial Duplex Bi-L ower EX Sleep Study Titratio n B TYPE NATRIURETIC P EPTIDE (BNP) LIPID PANEL COMPREHENSIVE METABO LIC PANEL, W/EGFR 6 minute walk test Ambulatory Oximetry DLCO - 27267 FRC - 29735 FVC - 01551 Mobile Cardiac Tele Sleep Study Home Complete Echo Aorta Duplex Ultraso und (AAA) Renal Artery Duplex Carotid Duplex Bilat eral STR - Adenosine HISTORY OF PROCEDURES Procedure Date Procedure Name Provider Procedure Notes S tatus Complex e/m visit add on Hussain Escalona MD completed EKG Hussain Escalona MD compl eted EKG Hussain Escalona MD compl eted EKG Hussain Escalona MD compl eted EKG Hussain Escalona MD compl eted EKG Hussain Escalona MD compl eted EKG Hussain Escaolna MD compl eted EKG Hussain Escalona MD compl eted EKG Hussain Escalona MD compl eted EKG Hussain Escalona MD compl eted EKG Hussain Escalona MD compl eted EKG Hussain Escalona MD compl eted EKG Hussain Escalona MD compl eted EKG Hussain Escalona MD compl eted EKG Hussain Escalona MD compl eted Lorenza Junior MD completed EKG Hussain Escalona MD compl eted FVC / MVV - 74955 Petra tejada MD completed BLOOD COUNT HEMOGLOBIN Petra martinez MD completed FRC - 60704 Petra busch MD completed SpO2 w/o 6min walk/titration Petra Tobar MD completed DLCO - 93026 Petra busch MD completed EKG Petra busch MD completed EKG Hussain Escalona MD compl eted EKG Hussain Escalona MD compl eted EKG Hussain Escalona MD compl eted EKG Hussain Escalona MD compl eted EKG Hussain Escalona MD compl eted EKG Hussain Escalona MD compl eted Regadenoson, 4 units Hussain Escalona MD completed Cardiolite, 2 units Hussain Escalona MD completed SPECT Images Sam Javier MD compl eted Stress EKG Javier Junior MD completed EKG Hussain Escalona MD compl eted EKG Hussain Escalona MD compl eted Regadenoson, 4 units Hussain Escalona MD completed Cardiolite, 2 units Hussain Escalona MD completed SPECT Images Sam Javier MD compl eted Stress EKG Mateusz Fitzpatrick MD completed Event Monitor Hussain Escalona MD co mpleted FVC / MVV with bronchodilator and 6min walk/titration Hussain Escalona MD completed FRC - 34621 Hussain Escalona MD comp leted DLCO - 27313 Hussain Escalona MD com pleted EKG Hussain Escalona MD compl eted
--- OUTSIDE RECORDS SUMMARY | 2024-06-10 15:08 | XMS_ITS | Clinical Summary ---
Author Organization [facility] Address [address] [place] [address] Phone Care Team Providers Care Traction Power Engineer Name Role Phone EUFEMIA SYDNEY DENNISE Vita Unavailable [phone] CAMPOS WHEELER MD Primary Care Provider [phone] Reason for Visit and Chief Complaint RX ISSUE/REFILL Problems Includes: Problems addressed during this encounter and other active Problems All Visits Onset Date Resolved Date Provider Condition S tatus Coronary Artery Disease Unknown JANAE BIRD APRN-FPA, RESEARCH TECH-BC Active Last Documented On 3 10:16AM ; [facility] Diabetes Mellitus Unknown JANAE BIRD APR N-FPA, RESEARCH TECH-BC Active Last Documented On 3 10:18AM ; [facility] Hypothyroidism Unknown JANAE BIRD APRN-F PA, RESEARCH TECH-BC Active Last Documented On 3 10:18AM ; [facility] Plan of Treatment No Plan of Treatment Recorded Assessments Includes: Assessments from this encounter No Assessments Recorded Medical Equipment - Implanted Devices Includes: Current Devices No Medical Equipment Recorded Medications Includes: Medications discussed during this encounter and other current Medications Current Medications (continue as prescribed) Linzess 145 MCG Oral Capsule 11/03/2023 Provider: YUE SCHMIDTBC Diagnosis: Constipation, un specified TAKE 1 CAPSULE BY MOUTH DAILY Last Documented On 4 1:40PM By JANAE TURNERBC ; [facility] tiZANidine HCl 2 MG Oral Tablet 10/24/2023 Provider: JANAE G PELON RESEARCH GROUP DIRECTOR-FPA, RESEARCH TECH-BC Diagnosis: TAKE 1 TABLET BY MOUTH 2 TO 3 TIMES PER DAY NEEDED Last Documented On 4 10:26AM By JANAE BIRD [facility] ; [facility] Acetaminophen-Codeine 300-30 MG Oral Tablet 10/08/2023 Provider: DENNISE GRIMES Diagnosis: Spinal stenosis, lumbar region with neurogenic claudication 1 po bid prn/ max 2 per day Last Documented On 4 9:26AM By DENNISE HERNANDEZ ; [facility] Ozempic (0.25 or 0.5 MG/DOSE ) 2 MG/3ML Subcutaneous Solution Pen-injector 10/02/2023 Provider: Diagnosis: Last Documented On 10/07/2023 1:34PM By Laura RIVERA ; [facility] Ubrelvy 100 MG Oral Tablet 09/18/2023 Provider: Diagnosis: Last Documented On 10/07/2023 1:35PM By Laura RIVERA ; [facility] Qulipta 60 MG Oral Tablet 09/11/2023 Provider: Diagnosis: Last Documented On 10/07/2023 1:34PM By Laura RIVERA ; [facility] tiZANidine HCl 2 MG Oral Tablet 08/13/2023 Provider: JANAE BIRD APRN-FPA, RESEARCH TECH-BC Diagnosis: TAKE 1 TABLET BY MOUTH 2 TO 3 TIMES PER DAY NEEDED Last Documented On 4 12:03PM By JANAE BIRD [facility] ; [facility] Gentamicin Sulfate 0.1% External Ointment 07/11/2023 Provider: JW MARIN DPOfelia Diagnosis: Last Documented On 10/07/2023 1:33PM By Laura RIVERA ; [facility] Gabapentin 600 MG Oral Tablet 06/23/2023 Provider: DENNISE GRIMES 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 TAKE 1 TABLET BY MOUTH THREE TIMES DAILY Last Documented On 4 8:40AM By DENNISE GRIMES ; [facility] DULoxetine HCl 60 MG Oral Capsule Delayed Release Particles 06/23/2023 Provider: DENNISE Barens Diagnosis: Chronic pain syn drome TAKE 1 CAPSULE BY MOUTH DAILY Last Documented On 4 8:40AM By DENNISE FALL [facility] ; [facility] Santyl 250 UNIT/GM External Ointment 06/06/2023 Prov ider: JW MARIN DPM Diagnosis: Last Documented On 10/07/2023 1:34PM By Laura RIVERA ; [facility] Bumetanide 1 MG Oral Tablet 09/13/2022 Provider: Diagnosis: Last Documented On 3 10:28AM By Laura RIVERA ; [facility] Kerendia 20 MG Oral Tablet 03/03/2022 Provider: Diagnosis: Last Documented On 03/14/2022 3:11PM By Laura RIVERA ; [facility] Brilinta 90 MG Oral Tablet 02/19/2022 Provider: Diagnosis: Last Documented On 03/14/2022 3:12PM By Laura RIVERA ; [facility] Carvedilol 6.25 MG Oral Tablet 01/26/2022 Provider: Diagnosis: Last Documented On 03/14/2022 3:06PM By Laura RIVERA ; [facility] Entresto 24-26 MG Oral Tablet 01/25/2022 Provider: Diagnosis: Last Documented On 03/14/2022 3:13PM By Laura RIVERA ; [facility] Jardiance 25 MG Oral Tablet 09/03/2021 Provider: Diagnosis: Last Documented On 09/20/2021 9:45AM By Laura RIVERA ; [facility] Aspirin 81 MG Oral Capsule 08/21/2021 Provider: Diagnosis: Last Documented On 08/21/2021 1:34PM By Laura RIVERA ; [facility] Nitroglycerin 0.4 MG Sublingual Tablet Sublingual 09/2021 Provider: Diagnosis: Last Documented On 08/21/2021 1:36PM By Laura RIVERA ; [facility] metFORMIN HCl 1000 MG Oral Tablet 08/20/2021 Provide r: CAMPOS WHEELER MD Diagnosis: Last Documented On 08/21/2021 1:30PM By Laura RIVERA ; [facility] Levothyroxine Sodium 100 MCG Oral Tablet 08/20/2021 Provider: CAMPOS WHEELER MD Diagnosis: Last Documented On 08/21/2021 1:30PM By Laura RIVERA ; [facility] Topiramate 25 MG Oral Tablet 2021 Provider: Diagnosis: Last Documented On 08/21/2021 1:31PM By Laura RIVERA ; [facility] Atorvastatin Calcium 40 MG Oral Tablet 08/09/2021 Pr ovider: CAMPOS WHEELER MD Diagnosis: Last Documented On 08/21/2021 1:31PM By Laura RIVERA ; [facility] Past Medications on file Bumetanide 1 MG Oral Tablet 05/23/2022 - 06/22/2022 Pr ovider: Diagnosis: Last Documented On 3 10:20AM By JANAE TURNER ; [facility] Medications Administered Includes: Administered Medications from this encounter No Administered Medications Recorded Results Includes: Results discussed during this encounter No Results Recorded For Specified Dates History of Present Illness Includes: History of Present Illness from this encounter HPI Pharmacy name:~location:[facility]. Social History Description Last Updated Tobacco non-user 07/26/2022 Last Documented On 4 1:09PM ; [facility] Difficulty walking 08/21/2021 Last Documented On 4 1:09PM ; [facility] Smoking Status Unknown Procedures and Surgical History Surgical History Last Updated Pacemaker 03/14/2022 Last Documented On 4 1:09PM ; [facility] Medical History Includes: Medical History addressed during this encounter Description Last Updated Has a fear of falling. 05/23/2022 Last Documented On 4 1:09PM ; [facility] Has had a fall in the last 12 months. Last Documented On 4 1:09PM ; [facility] History of acute myocardial infarction A ugust 202103/14/2022 Last Documented On 4 1:09PM ; [facility] Currently wearing eyeglasses 03/14/2022 Last Documented On 4 1:09PM ; [facility] Deep muscle stimulation 03/14/2022 Last Documented On 4 1:09PM ; [facility] Injection/Nerve blocks 03/14/2022 Last Documented On 4 1:09PM ; [facility] Physical therapy 03/14/2022 Last Documented On 4 1:09PM ; [facility] Please list all illnesses/co nditions you have been diagnosed with: Two pinched nerves in my lower back neuropathy total right knee replacement heart disease 03/14/2022 Last Documented On 4 1:09PM ; [facility] Please list all surgeries: R ight ankle 1988 right knee scope 4x 2018 total right knee replacement carpal tunnel both hands 2004 and just on the right 2012 partial hysterectomy 2009 stent in my heart 2018 heart ablation 2019 [id number] 03/14/2022 Last Documented On 4 1:09PM ; [facility] Severe Pain 03/14/2022 Last Documented On 4 1:09PM ; [facility] Uses a cane for support 03/14/2022 Last Documented On 4 1:09PM ; [facility] Which brand of pacemaker/defibrillator d o you have? Biotronik 03/14/2022 Last Documented On 4 1:09PM ; [facility] Family History Includes: Family History [...] Time Check-Out Time Diagnosis RX ISSUE/REFILL DENNISE HERNANDEZ-CHRISTOFER 06/09/2023 1:09PM 11:59PM Insurance Includes: Active Insurance Policies Plan Name Member ID Group # Subscriber Relationship Effect arcadio Dates 1 - MEDICARE PART A CLAIMS/NGS [id number] ANAM K DOLLAR Self 2 - MEDICA[place] MEDICARE SECOND [id number] ANAM [email or web address] DOLLAR Self Clinical Notes Includes: Clinical Notes from this encounter * Progress note Date Encounter Last Documented by 06/09/2023 RX ISSUE/REFILL Last documented on 06/10/2023; 8:28 AM, DENNISE FALL ANP-; [facility] Active Problems & Conditions - Coronary Artery Disease - Diabetes Mellitus - Hypothyroidism Chief Complaint Phone Call - Chief Concern: Reason for call:REFILL Patient is requesting a refill on TYLENOL #3 ~How is medication taken? BID ~How many are left?OUT OF MEDICATION Risk Assessment Score: LOW ~[place]MP:03/28/23 Last Office Visit: 03/27/23 ~ pt phone # for Return call: [phone] ~Last Drug Screen:09/03/22 ~Date/Initials: 06/09/23, K[facility]. History of Present Illness Pharmacy name:~location:[facility]. Past Medical/Surgical History Reported: Injection/Nerve blocks, Deep muscle stimulation, Physical therapy, Which brand of pacemaker/defibrillator do you have? BiotroniLOOKK, Please list all illnesses/conditions you have been diagnosed with: Two pinched nerves in my lower back neuropathy total right knee replacement heart disease, and Please list all surgeries: Right ankle 1988 right knee scope 4x 2018 total right knee replacement carpal tunnel both hands 2003 and just on the right 2012 partial hysterectomy 2009 stent in my heart 2018 heart ablation 2019 [id number]. Medical: Currently wearing eyeglasses, orthopedic history Left [...] 2 per day, 30 days, 0 refills - Aspirin 81 MG [...] - No Known Allergies Plan StartCited - Other PHY ORDER/COMMENT what is going on with surgery EndCited Care Team - DAVID SHETTY- - Pain Management Health Reminders - Assess Need for CT Lung Screen satisfied 06/09/2023. - Assess Tobacco Use satisfied 06/09/2023.
--- OUTSIDE RECORDS SUMMARY | 2024-06-10 15:08 | XMS_ITS ---
Care Plan - [facility] Created on: June 10, 2024 ANAM JAQUEZ : 1970 Sex: Female Author Organization [facility] Address [address] [place] [address] Phone Care Team Providers Care Accounting Office Manager Name Role Phone DENNISE TRUJILLO Unavailable [phone] CAMPOS WHEELER MD Primary Care Provider [phone]
--- OUTSIDE RECORDS SUMMARY | 2024-06-10 15:08 | XMS_ITS | Clinical Summary ---
Author Organization [facility] Address [address] [place] [address] Phone Care Team Providers Care Social Service Manager Name Role Phone EUFEMIA GRIMES, DENNISE Gorman Unavailable [phone] CAMPOS WHEELER MD Primary Care Provider [phone] Reason for Visit and Chief Complaint RX ISSUE/REFILL Problems Includes: Problems addressed during this encounter and other active Problems All Visits Onset Date Resolved Date Provider Condition S tatus Coronary Artery Disease Unknown JANAE BIRD MANUFACTURING PROJECT ENGINEER-FPA, ARMHOLE SEWER-BC Active Last Documented On 3 10:16AM ; [facility] Diabetes Mellitus Unknown JANAE BIRD APR N-FPA, ARMHOLE SEWER-BC Active Last Documented On 3 10:18AM ; [facility] Hypothyroidism Unknown JANAE BIRD MANUFACTURING PROJECT ENGINEER-F PA, ARMHOLE SEWER-BC Active Last Documented On 3 10:18AM ; [facility] Plan of Treatment No Plan of Treatment Recorded Assessments Includes: Assessments from this encounter No Assessments Recorded Medical Equipment - Implanted Devices Includes: Current Devices No Medical Equipment Recorded Medications Includes: Medications discussed during this encounter and other current Medications Discontinued / Stopped on this date DENNISE GRIMES on 06/12/2023 Acetaminophen-Codeine 300-30 MG Oral Tablet Provider: DENNISE GRIMES Diagnosis: Spinal stenosis, lumbar region with neurogenic claudication Last Documented On 4 10:00AM By DENNISE GRIMES ; [facility] Current Medications (continue as prescribed) Linzess 145 MCG Oral Capsule 11/03/2023 Provider: JANAE BIRD APRN- FPA [facility] Diagnosis: Constipation, un specified TAKE 1 CAPSULE BY MOUTH DAILY Last Documented On 4 1:40PM By JANAE BIRD [facility] ; [facility] tiZANidine HCl 2 MG Oral Tablet 10/24/2023 Provider: JANAE BIRD APRN-FPA [facility]-BC Diagnosis: TAKE 1 TABLET BY MOUTH 2 TO 3 TIMES PER DAY NEEDED Last Documented On 4 10:26AM By JANAE BIRD [facility] ; [facility] Acetaminophen-Codeine 300-30 MG Oral Tablet 10/08/2023 Provider: DENNISE GRIMES Diagnosis: Spinal stenosis, lumbar region with neurogenic claudication 1 po bid prn/ max 2 per day Last Documented On 4 9:26AM By DENNISE HERNANDEZ ; [facility] Ozempic (0.25 or 0.5 MG/DOSE ) 2 MG/3ML Subcutaneous Solution Pen-injector 10/02/2023 Provider: Diagnosis: Last Documented On 10/07/2023 1:34PM By Laura RIVERA ; [facility] Ubrelvy 100 MG Oral Tablet 09/18/2023 Provider: Diagnosis: Last Documented On 10/07/2023 1:35PM By Laura RIVERA ; [facility] Qulipta 60 MG Oral Tablet 09/11/2023 Provider: Diagnosis: Last Documented On 10/07/2023 1:34PM By Laura RIVERA ; [facility] tiZANidine HCl 2 MG Oral Tablet 08/13/2023 Provider: JANAE BIRD APRN-ALTHEA [facility] Diagnosis: TAKE 1 TABLET BY MOUTH 2 TO 3 TIMES PER DAY NEEDED Last Documented On 4 12:03PM By JANAE BIRD [facility] ; [facility] Gentamicin Sulfate 0.1% External Ointment 07/11/2023 Provider: JW MARIN DPM Diagnosis: Last Documented On 10/07/2023 1:33PM By aLura RIVERA ; [facility] Gabapentin 600 MG Oral Tablet 06/23/2023 Provider: DENNISE HERNANDEZBC Diagnosis: [facility] diabetes lary litus with diabetic polyneuropathy TAKE 1 TABLET BY MOUTH THREE TIMES DAILY Last Documented On 4 8:40AM By DENNISE FALL BANNER ; [facility] DULoxetine HCl 60 MG Oral Capsule Delayed Release Particles 06/23/2023 Provider: DEN[facility]ALL [facility] Diagnosis: Chronic pain syn drome TAKE 1 CAPSULE BY MOUTH DAILY Last Documented On 4 8:40AM By DENNISE FALL BANNER ; [facility] Santyl 250 UNIT/GM External Ointment 06/06/2023 Prov ider: JW MARIN DPM Diagnosis: Last Documented On 10/07/2023 1:34PM By Laura RIVERA ; [facility] Bumetanide 1 MG Oral Tablet 09/13/2022 Provider: Diagnosis: Last Documented On 3 10:28AM By Laura RIVERA ; [facility] Kerendia 20 MG Oral Tablet 03/03/2022 Provider: Diagnosis: Last Documented On 03/14/2022 3:11PM By Laura RIVERA ; [facility] Brilinta 90 MG Oral Tablet 02/19/2022 Provider: Diagnosis: Last Documented On 03/14/2022 3:12PM By Laura RIVERA ; [facility] Carvedilol 6.25 MG Oral Tablet 01/26/2022 Provider: Diagnosis: Last Documented On 03/14/2022 3:06PM By Laura RIVERA ; [facility] Entresto 24-26 MG Oral Tablet 01/25/2022 Provider: Diagnosis: Last Documented On 03/14/2022 3:13PM By Laura RIVERA ; [facility] Jardiance 25 MG Oral Tablet 09/03/2021 Provider: Diagnosis: Last Documented On 09/20/2021 9:45AM By Laura RIVERA ; [facility] Aspirin 81 MG Oral Capsule 08/21/2021 Provider: Diagnosis: Last Documented On 08/21/2021 1:34PM By Laura RIVERA ; [facility] Nitroglycerin 0.4 MG Sublingual Tablet Sublingual 09/2021 Provider: Diagnosis: Last Documented On 08/21/2021 1:36PM By Laura RIVERA ; [facility] metFORMIN HCl 1000 MG Oral Tablet 08/20/2021 Provide r: CAMPOS WHEELER MD Diagnosis: Last Documented On 08/21/2021 1:30PM By Laura RIVERA ; [facility] Levothyroxine Sodium 100 MCG Oral Tablet 08/20/2021 Provider: CAMPOS WHEELER MD Diagnosis: Last Documented On 08/21/2021 1:30PM By Laura RIVERA ; [facility] Topiramate 25 MG Oral Tablet 2021 Provider: Diagnosis: Last Documented On 08/21/2021 1:31PM By Laura RIVERA ; [facility] Atorvastatin Calcium 40 MG Oral Tablet 08/09/2021 Pr ovider: CAMPOS WHEELER MD Diagnosis: Last Documented On 08/21/2021 1:31PM By Laura RIVERA ; [facility] Past Medications on file Bumetanide 1 MG Oral Tablet 05/23/2022 - 06/22/2022 Pr ovider: Diagnosis: Last Documented On 3 10:20AM By JANAE BIRD [facility] ; [facility] Medications Administered Includes: Administered Medications from this encounter No Administered Medications Recorded Results Includes: Results discussed during this encounter No Results Recorded For Specified Dates History of Present Illness Includes: History of Present Illness from this encounter No History of Present Illness Recorded Social History Description Last Updated Tobacco non-user 07/26/2022 Last Documented On 4 1:47PM ; [facility] Difficulty walking 08/21/2021 Last Documented On 4 1:47PM ; [facility] Smoking Status Unknown Procedures and Surgical History Surgical History Last Updated Pacemaker 03/14/2022 Last Documented On 4 1:47PM ; [facility] Medical History Includes: Medical History addressed during this encounter Description Last Updated Has a fear of falling. 05/23/2022 Last Documented On 4 1:47PM ; [facility] Has had a fall in the last 12 months. Last Documented On 4 1:47PM ; [facility] History of acute myocardial infarction A ugust 202103/14/2022 Last Documented On 4 1:47PM ; [facility] Currently wearing eyeglasses 03/14/2022 Last Documented On 4 1:47PM ; [facility] Deep muscle stimulation 03/14/2022 Last Documented On 4 1:47PM ; [facility] Injection/Nerve blocks 03/14/2022 Last Documented On 4 1:47PM ; [facility] Physical therapy 03/14/2022 Last Documented On 4 1:47PM ; [facility] Please list all illnesses/co nditions you have been diagnosed with: Two pinched nerves in my lower back neuropathy total right knee replacement heart disease 03/14/2022 Last Documented On 4 1:47PM ; [facility] Please list all surgeries: R ight ankle 1988 right knee scope 4x 2018 total right knee replacement carpal tunnel both hands 2003 and just on the right 2012 partial hysterectomy 2009 stent in my heart 2018 heart ablation 2019 [id number] 03/14/2022 Last Documented On 4 1:47PM ; [facility] Severe Pain 03/14/2022 Last Documented On 4 1:47PM ; [facility] Uses a cane for support 03/14/2022 Last Documented On 4 1:47PM ; [facility] Which brand of pacemaker/defibrillator d o you have? Biotronik 03/14/2022 Last Documented On 4 1:47PM ; [facility] Family History Includes: Family History addressed during [...] Check-Out Time Diagnosis RX ISSUE/REFILL DENNISE GRIMES 07/18/2023 1:47PM 11:59PM Insurance Includes: Active Insurance Policies Plan Name Member ID Group # Subscriber Relationship Effect arcadio Dates 1 - MEDICARE PART A CLAIMS/NGS [id number] ANAM [place] 2 - MEDICAID OF [place] MEDICARE SECOND [id number] ANAM [place] Clinical Notes Includes: Clinical Notes from this encounter * Progress note Date Encounter Last Documented by 07/18/2023 RX ISSUE/REFILL Last documented on 07/21/2023; 10:00 AM, DENNISE FALL ANP-; [facility] Active Problems & Conditions [...] ~ pt phone # for Return call: [phone] ~Last Drug Screen:09/03/22 ~Date/Initials: 07/18/23 CB. Past Medical/Surgical History Reported: Injection/Nerve blocks, Deep muscle stimulation, Physical therapy, Which brand of pacemaker/defibrillator do you have? [employer], Please list all illnesses/conditions you have been diagnosed with: Two pinched nerves in my lower back neuropathy total right knee replacement heart disease, and Please list all surgeries: Right ankle 1988 right knee scope 4x 2018 total right knee replacement carpal tunnel both hands 2004 and just on the right 2012 partial hysterectomy 2009 stent in my heart 2018 heart ablation 2019 [id number]. Medical: Currently wearing eyeglasses, orthopedic history Left [...]
[2024-06-10 16:07] VITALS: PULSE 88
--- NOTE | 2024-06-10 16:29 | P.DS_ITS ---
DS: Admitting Diagnosis Discharge Date June 10, 2024 Admitting Diagnosis Lumbar spondylolisthesis DS: Discharge Diagnosis Discharge Diagnosis (1) Status post lumbar spinal arthrodesis: Code(s): Z98.1 - Arthrodesis status Status: Acute DS: Summary Hospital Course Hospital Course: Ms. Miramontes is a 53-year-old female who presents to the hospital on June 08 for surgery; please see the operative note for more details. She was transferred to the floor after surgery. She ambulated with Physical therapy who ultimately cleared her for discharge home. Her pain was uncontrolled with oral medications, so these were adjusted on postoperative day 1. She was tolerating oral intake, voiding spontaneously, and ambulating. Her Hemovac drain was removed on postoperative day 2. She was determined ready for discharge home on postoperative day 2. Time Spent with Patient Time attestation: Total time spent providing and/or coordinating discharge services: Discharge Plan Discharge Discharging Clinician: Kaycee Mukherjee Patient Disposition: Home, Self-Care Activity: other - see discharge instructions Diet: as tolerated Wound Care Instructions: follow printed instructions Discharge Instructions: INSTRUCTIONS AFTER YOUR LUMBAR FUSION ? Your incision is covered with skin glue. This will peel off on its own. ? You may shower and get your incision wet with soap and water starting on post-operative day 2 (). Do not submerge the incision under water (like in a bathtub or swimming pool) for 6 weeks after surgery. Never apply ointments or lotions to the incision. ? The incision should be checked daily. Notify the office if there is drainage, redness, or if you have fever with a temperature of over 101 degrees. ? You are encouraged to walk as much as comfortable, with assistance as needed. For example, it may be beneficial to walk short distances hourly during the waking hours and gradually increase walking during your recovery period. Fatigue can be common. ? Avoid any bending, heavy lifting, or twisting movements. ? You have an hqtpz-[id number]-tzm-pound lift restriction until further advised by your physician (a gallon of milk weighs eight pounds). ? Make frequent position changes, avoiding long periods of sitting. Try not to sit more than 60 minutes at a time. ? You may engage in sexual activity in two weeks as tolerated. ? No housework, especially vacuuming, making beds, or doing laundry until seen in the office. ? You may walk stairs carefully. ? Minimize long car rides for the first two weeks. You may resume driving when you feel comfortable; however, you may not drive if still taking narcotic pain medications. ? You should start with Tylenol 1000mg every 6 hours for pain first. If the Tylenol is not effective, you may then take oxycodone. ? The physician may order pain medication and/or muscle relaxers. As time goes by, you should require less of these. Always take your medication as ordered, and only if needed. If you take more than prescribed, it will not be refilled early. If you feel you require narcotic medication refill, kindly give the office a 72-hour notice. No refills are given over the weekend. ? Avoid use of anti-inflammatory medications (like Ibuprofen, Aleve, Advil, Motrin) for up to three months following fusion surgery. Use of these medications may slow healing. ? Resume your usual diet. Constipation is a common problem postop. You may use any over the counter laxative, or stool softener. Always follow the bottle directions. ? Use of nicotine products should be stopped completely. Smoking can slow the healing process significantly. It can also increase the chance for developing postop pneumonias and other complications. Please avoid use of all nicotine products for at least three months after spine surgery. FOLLOW-UP ? Schedule an appointment with your primary care physician in the near future to ensure he/she is aware of your recent hospitalization and surgery and to ensure your other medical issues are being properly managed. This is particularly important to ensure your blood sugars are being well-controlled while you are healing from surgery. FOR AN EMERGENCY AFTER HOURS OR ON A WEEKEND, PLEASE CALL THE MEDICAL EXCHANGE AT ? Call the office for: o Appointment set up. o Fever greater than 101 degrees. o Increased pain, swelling, redness or drainage from your incision. o Trouble swallowing or breathing. o Pain, swelling or weakness of your legs. o Any other question or concerns you may have. Pérez Merlos MD Neurosurgery [facility] [address], [place] [address] Patient Instructions: Antibiotic Form Patient Language: Icelandic Stand Alone Forms: General Discharge Information Follow-up/Referrals: Pérez Merlos MD [Physician] - Discharge Medications: New cyclobenzaprine 10 mg Tablet 10 mg PO TID PRN (Reason: Muscle Spasms) 10 Days Qty: 30 0RF oxycodone 5 mg Tablet 5 mg PO Q4H PRN (Reason: Pain Rated 4-6) 7 Days Qty: 42 0RF Continued Linzess 145 mcg capsule 145 mcg PO DAILY Ozempic 0.25 mg or 0.5 mg (2 mg/3 mL) pen injector 0.25 mg subcut WEEKLY Rx Instructions: for 4 weeks, says is taking 0.5mg on Wednesdays. sertraline 25 mg tablet 50 mg PO HS gabapentin 600 mg tablet 600 mg PO BID Patient Comments: TAKES TID Qulipta 60 mg tablet 60 mg PO DAILY Qty: 30 6RF Ubrelvy 100 mg tablet 100 mg PO ONCE PRN (Reason: migraine headache) Qty: 14 3RF Rx Instructions: as a single dose; may repeat once in >=2 hours after first dose if needed levothyroxine [Tirosint] 100 mcg capsule 100 mcg PO DAILY nitroglycerin 0.4 mg tablet, sublingual 0.4 mg sublingual Q5M PRN (Reason: Chest Pain) Rx Instructions: do not exceed 3 doses per episode metformin 1,000 mg tablet 1,000 mg PO BID atorvastatin 80 mg tablet 80 mg PO DAILY Patient Comments: TAKES AT HS carvedilol 6.25 mg tablet 6.25 mg PO BID Rx Instructions: must administer with a meal/food acetaminophen-codeine 300-30 mg tablet 1 tablet PO QHS PRN (Reason: Pain) Jardiance 25 mg tablet 25 mg PO DAILY Entresto 24-26 mg tablet 1 tablet PO BID bumetanide 1 mg tablet 1 mg PO .twice weekly Rx Instructions: Says takes twice a week on Mondays and . Nurtec ODT 75 mg tablet,disintegrating 75 mg PO ONCE PRN (Reason: pain) Rx Instructions: as a single dose ondansetron 8 mg tablet,disintegrating 8 mg PO Q12H Patient Comments: PRN dicyclomine 10 mg capsule 10 mg PO QID Qty: 14 0RF ondansetron 4 mg tablet,disintegrating 4 mg PO Q8H PRN (Reason: nausea and vomiting) Qty: 14 0RF duloxetine 30 mg capsule,delayed release(DR/EC) 60 mg PO DAILY Patient Comments: AT HS tizanidine 2 mg tablet See Rx Instructions .ROUTE .COMPLEX Qty: 120 0RF Dose Instruction: TAKE 1 TABLET BY MOUTH EVERY 6 TO 8 HOURS NEEDED FOR MUSCLE SPASTICITY Rx Instructions: TAKE 1 TABLET BY MOUTH EVERY 6 TO 8 HOURS NEEDED FOR MUSCLE SPASTICITY Held aspirin 81 mg tablet,delayed release (DR/EC) 81 mg PO DAILY Hold Instructions: Resume on 06/15/24. Brilinta 60 mg tablet 60 mg PO BID Hold Instructions: Resume on 06/15/24. Date of admission: 06/08/24 14:50 Primary Care Provider: Johnathan,Rehan Velasquez Admitting Provider: Pérez Merlos Attending physician on admission: Pérez Merlos Condition: Stable
== END 2024-06-10 18:15 | disposition home or self-care (01) | DRG 451 ==
LOC: ANH2MED 14:51
PROVIDERS: Admitting Provider Neurological Surgery; PCP Physician Assistant Medical; Visit Provider Neurological Surgery
PROC: 0SG00AJ Fusion of Lumbar Vertebral Joint with Interbody Fusion Device, Posterior Approach, Anterior Column, Open Approach (ICD-10-PCS; CPT 63005; principal; 2024-06-08 09:30)
DX: M43.16 Spondylolisthesis, lumbar region (principal); M47.816 Spondylosis without myelopathy or radiculopathy, lumbar region; M48.061 Spinal stenosis, lumbar region without neurogenic claudication; E11.9 Type 2 diabetes mellitus without complications; E03.9 Hypothyroidism, unspecified; I10 Essential (primary) hypertension; E78.5 Hyperlipidemia, unspecified; I25.2 Old myocardial infarction; Z95.810 Presence of automatic (implantable) cardiac defibrillator; Z95.5 Presence of coronary angioplasty implant and graft; Z79.82 Long term (current) use of aspirin
CPT/HCPCS: 82948; 97110; 97161; 97165; 97530; 97535; 99199; A9270; C1713; J0330; J0690; J1100; J1171; J2003; J2004; J2250; J2405; J2704; J3010; J7120

== ENCOUNTER 2024-06-19 19:50 | Emergency (ER) | payer MEDICARE, MEDICAID, SELFPAY ==
--- NOTE | ~2024-06-19 | CT_ITS ---
EXAMINATION: CT lumbar spine w con DATE: 06/19/2024 23:48 INDICATION: Low back pain post recent spinal arthrodesis TECHNIQUE: Computed tomography (CT) of the lumbar spine was performed with 100 mL Omnipaque-350 intra venous contrast. Automated exposure control and iterative reconstruction technique were employed. The dose-length product was 271.43 mGy-cm. COMPARISON: 01/26/2024 FINDINGS: Interval L4 laminectomy and L4-L5 discectomy with combined instrumented L4-L5 anterior and posterior spinal fusion with interbody bone graft cage and bilateral vertical toni and pedicle screw fixations w hich appear unremarkable. No significant change in 3 mm anterolisthesis L4 on L5 and 3 mm retrolisthe sis L5 on S1. Vertebral body heights are normal. Mild disc height loss at L5-S1. Remaining disc heigh ts are normal. With exception of L4-L5, the mild spondylosis at the remainder of the lumbar spine dayana ears unchanged. There is a small peripherally enhancing fluid collection in the midline posterior sub cutaneous fat which measures up to 12 x 12 mm in maximal transaxial dimensions and which extends 3 cm craniocaudally at the level of the L3 spinous process which could represent a small hematoma or absc ess along surgical scar. Paravertebral soft tissues are otherwise unremarkable. IMPRESSION: 1. Mild lumbar spondylosis with interval posterior decompression with L4 laminectomy and combined ins trumented L4-L5 anterior and posterior spinal fusion. 2. 3 x 1.2 x 1.2 cm peripherally enhancing fluid collection in the subcutaneous tissues along a midli ne surgical scar at the level of the L3 spinous process which could represent a postoperative hematom a/seroma or abscess in the appropriate clinical setting. Reviewed, dictated and finalized at location A. TIONAL PSYCHOLOGIST IMPRESSION: 1. Mild lumbar spondylosis with interval posterior decompression with L4 jamarcus ctomy and combined instrumented L4-L5 anterior and posterior spinal fusion. 2. 3 x 1.2 x 1.2 cm peripherally enhancing fluid collection in the subcutaneous tissues along a midline surgical scar at the level of the L3 spinous process w hich could represent a postoperative hematoma/seroma or abscess in the appropri ate clinical setting.
--- OUTSIDE RECORDS SUMMARY | 2024-06-19 19:51 | XMS_ITS | Clinical Summary ---
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 Shovel Engineer Name Role Phone EUFEMIA SYDNEY DENNISE Vita Unavailable [phone] CAMPOS WHEELER MD Primary Care Provider [phone] Reason for Visit and Chief Complaint The [...] tatus Coronary Artery Disease Unknown JANAE BIRD MEDIA PROMOTER-FPA, [employer]-BC Active Last Documented On 3 10:16AM ; [facility] Diabetes Mellitus Unknown JANAE BIRD APR N-FPA, [employer]-BC Active Last Documented On 3 10:18AM ; [facility] Hypothyroidism Unknown JANAE BIRD MEDIA PROMOTER-F PA, [employer]-BC Active Last Documented On 3 10:18AM ; [facility] Plan of Treatment Education and Decision Aids were provided during visit for: Pill Count: seven TYLENOL #3 Last Documented On 4 1:36PM ; [facility] Assessments Includes: Assessments from this encounter Findings - Bulging lumbar disc [M51.26 - Other intervertebral disc displacement, lumbar region] - Last Documented On 10/08/2023 9:10AM ; [facility] - Lumbar spondylosis with radiculopathy [M47.26 - Other spondylosis with radiculopathy, lumbar region] - Last Documented On 10/08/2023 9:10AM ; [facility] - Lumbar stenosis with neurogenic claudication [M48.062 - Spinal stenosis, lumbar region with neurogenic claudication] - Last Documented On 10/08/2023 9:10AM ; [facility] - Diabetic polyneuropathy [E13.42 - Other specified diabetes mellitus with diabetic polyneuropathy] - Last Documented On 10/08/2023 9:10AM ; [facility] - Myalgia [M79.18 - Myalgia, other site] - Last Documented On 10/08/2023 9:10AM ; [facility] - Chronic pain syndrome [G89.4 - Chronic pain syndrome] - Last Documented On 10/08/2023 9:10AM ; [facility] - terminal carman use of opiate analgesic [Z79.891 - [facility] (current) use of opiate analgesic] - Last Documented On 10/08/2023 9:10AM ; [facility] Instructions Includes: Instructions from this encounter Education and Decision Aids were provided during visit for: Pill Count: seven TYLENOL #3 Last Documented On 4 1:36PM ; [facility] Medical Equipment - Implanted Devices Includes: Current Devices No Medical Equipment Recorded Medications Includes: Medications discussed during this encounter and other current Medications Discontinued / Stopped on this date DENNISE GRIMES on 10/03/2023 Linzess 145 MCG Oral Capsule Provider: DENNISE GRIMES Diagnosis: Last Documented On 10/07/2023 1:35PM By Laura RIVERA ; [facility] Vascepa 1 GM Oral Capsule Provider: Diagnosis: Last Documented On 10/07/2023 1:35PM By Laura RIVERA ; [facility] Current Medications (continue as prescribed) Linzess 145 MCG Oral Capsule 11/03/2023 Provider: ISIDORO SCHMIDT Diagnosis: Constipation, un specified TAKE 1 CAPSULE BY MOUTH DAILY Last Documented On 4 1:40PM By JANAE CHAUDHRY ; [facility] tiZANidine HCl 2 MG Oral Tablet 10/24/2023 Provider: JANAE G PELON MEDIA PROMOTER-FPA, [employer]-BC Diagnosis: TAKE 1 TABLET BY MOUTH 2 TO 3 TIMES PER DAY NEEDED Last Documented On 4 10:26AM By JANAE BIRD [facility] ; [facility] Acetaminophen-Codeine 300-30 MG Oral Tablet 10/08/2023 Provider: DENNISE HERNANDEZ Diagnosis: Spinal stenosis, lumbar region with neurogenic claudication 1 po bid prn/ max 2 per day Last Documented On 4 9:26AM By [facility] ; [facility] Ozempic (0.25 or 0.5 MG/DOSE ) 2 MG/3ML Subcutaneous Solution Pen-injector 10/02/2023 Provider: Diagnosis: Last Documented On 10/07/2023 1:34PM By Laura RIVERA ; [facility] Ubrelvy 100 MG Oral Tablet 09/18/2023 Provider: Diagnosis: Last Documented On 10/07/2023 1:35PM By Laura RIVERA ; [facility] Qulipta 60 MG Oral Tablet 09/11/2023 Provider: Diagnosis: Last Documented On 10/07/2023 1:34PM By Laura RIVERA ; [facility] tiZANidine HCl 2 MG Oral Tablet 08/13/2023 Provider: JANAE BIRD MEDIA PROMOTER-FPA, [employer]-BC Diagnosis: TAKE 1 TABLET BY MOUTH 2 TO 3 TIMES PER DAY NEEDED Last Documented On 4 12:03PM By JANAE BIRD [facility] ; [facility] Gentamicin Sulfate 0.1% External Ointment 07/11/2023 Provider: WJ MARIN DPM Diagnosis: Last Documented On 10/07/2023 1:33PM By Laura RIVERA ; [facility] Gabapentin 600 MG Oral Tablet 06/23/2023 Provider: DENNISE GRIMES 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 TAKE 1 TABLET BY MOUTH THREE TIMES DAILY Last Documented On 4 8:40AM By DENNISE GRIMES ; [facility] DULoxetine HCl 60 MG Oral Capsule Delayed Release Particles 06/23/2023 Provider: DENNISE BarnesBC Diagnosis: Chronic pain syn drome TAKE 1 CAPSULE BY MOUTH DAILY Last Documented On 8:40AM By DENNISE FALL [facility]- ; [facility] Santyl 250 UNIT/GM External Ointment 06/06/2023 Prov ider: JW MARIN DPM Diagnosis: Last Documented On 10/07/2023 1:34PM By Laura RIVERA ; [facility] Bumetanide 1 MG Oral Tablet 09/13/2022 Provider: Diagnosis: Last Documented On 10:28AM By Laura RIVERA ; [facility] Kerendia 20 MG Oral Tablet 03/03/2022 Provider: Diagnosis: Last Documented On 03/14/2022 3:11PM By Laura RIVERA ; [facility] Brilinta 90 MG Oral Tablet 02/19/2022 Provider: Diagnosis: Last Documented On 03/14/2022 3:12PM By Laura RIVERA ; [facility] Carvedilol 6.25 MG Oral Tablet 01/26/2022 Provider: Diagnosis: Last Documented On 03/14/2022 3:06PM By Laura RIVERA ; [facility] Entresto 24-26 MG Oral Tablet 01/25/2022 Provider: Diagnosis: Last Documented On 03/14/2022 3:13PM By Laura RIVERA ; [facility] Jardiance 25 MG Oral Tablet 09/03/2021 Provider: Diagnosis: Last Documented On 09/20/2021 9:45AM By Laura RIVERA ; [facility] Aspirin 81 MG Oral Capsule 08/21/2021 Provider: Diagnosis: Last Documented On 08/21/2021 1:34PM By Laura RIVERA ; [facility] Nitroglycerin 0.4 MG Sublingual Tablet Sublingual 09/2021 Provider: Diagnosis: Last Documented On 08/21/2021 1:36PM By Laura RIVERA ; [facility] metFORMIN HCl 1000 MG Oral Tablet 08/20/2021 Provide r: CAMPOS WHEELER MD Diagnosis: Last Documented On 08/21/2021 1:30PM By Laura RIVERA ; [facility] Levothyroxine Sodium 100 MCG Oral Tablet 08/20/2021 Provider: CAMPOS WHEELER MD Diagnosis: Last Documented On 08/21/2021 1:30PM By Laura RIVERA ; [facility] Topiramate 25 MG Oral Tablet 2021 Provider: Diagnosis: Last Documented On 08/21/2021 1:31PM By Laura RIVERA ; [facility] Atorvastatin Calcium 40 MG Oral Tablet 08/09/2021 Pr ovider: CAMPOS WHEELRE MD Diagnosis: Last Documented On 08/21/2021 1:31PM By Laura RIVERA ; [facility] Past Medications on file Bumetanide 1 MG Oral Tablet 05/23/2022 - 06/22/2022 Pr ovider: Diagnosis: Last Documented On 10:20AM [facility] ; [facility] Medications Administered Includes: Administered Medications from this encounter No Administered Medications Recorded Vital Signs Includes: Vital Signs from this encounter Vital Name 10/07/2023 01:28P Blood Pressure Sitting R 90/60 Pulse Rate-Sitting (bpm) 90 Temp-Temporal 97.3 Height (in) 65 Weight (lb) 126 Body Mass Index 21 Body Surface Area 1.6 Pain Level 7 Oxygen Saturation (%) 98 Last Documented: On 10/07/2023 1:32PM ; [facility] Results Includes: Results discussed during this [...] is scheduled to have surgery 06/10/23 at [facility]. She continues tylenol #3 as needed twice [...] muscle tightness and pressure. With her recent DC and hypotension we will avoid further medication. [...] days. 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 Numbness and tingling in feet causes falls. After right knee replacement there was an increase in lateral thigh/knee numbness and more falls. Her neurologist placed her on permanent restrictions due to gait instability and she is now on disability. She had worked at [employer] for over 20 years. Gabapentin 300mg TID has been her dose for 5 plus years. She was originally treated by Dr Araujo until his jail and given oxycodone. Dr Cabrera assumed care until recently. He no longer prescribes pain medication. Her pcp placed her on Tylenol #3 at bedtime, which provides minimal relief. She really doesn't question additional pain medication and is open to a treatment plan that would include reduction of medication use. We discussed increasing gabapentin to 600mg tid and will do so if her time clock mechanic is ok with this, she is seeing [...] 07/26/2022 Last Documented On 4 1:11PM ; [facility] Difficulty walking 08/21/2021 Last Documented On 4 1:11PM ; [facility] Smoking Status Unknown Procedures and Surgical History Includes: Procedures from this encounter Procedures Code Diagnosis Performing Provider Service L ocation Service Date use of tobacco assessment performed 1000F Last Documented On 4 1:36PM ; [facility] review of medications documented 1160F Last Documented On 4 1:36PM ; [facility] screening for adult depression: impressi on and score seven Last Documented On 4 1:11PM ; [facility] standardized depression screening: posit arcadio for symptoms Last Documented On 4 1:11PM ; [facility] Clinical summary provided to patient Last Documented On 4 1:11PM ; [facility] SOAPP-R: total score 6 Last Documented On 4 1:38PM ; [facility] Surgical History Last Updated Pacemaker 03/14/2022 Last Documented On 4 1:11PM ; [facility] Medical History Includes: Medical History addressed during this encounter Description Last Updated Has a fear of falling. 05/23/2022 Last Documented On 4 1:11PM ; [facility] Has had a fall in the last 12 months. Last Documented On 4 1:11PM ; [facility] History of acute myocardial infarction A ugust 202103/14/2022 Last Documented On 4 1:11PM ; [facility] Currently wearing eyeglasses 03/14/2022 Last Documented On 4 1:11PM ; [facility] Deep muscle stimulation 03/14/2022 Last Documented On 4 1:11PM ; [facility] Injection/Nerve blocks 03/14/2022 Last Documented On 4 1:11PM ; [facility] Physical therapy 03/14/2022 Last Documented On 4 1:11PM ; [facility] Please list all illnesses/co nditions you have been diagnosed with: Two pinched nerves in my lower back neuropathy total right knee replacement heart disease 03/14/2022 Last Documented On 4 1:11PM ; [facility] Please list all surgeries: R ight ankle 1988 right knee scope 4x 2018 total right knee replacement carpal tunnel both hands 2004 and just on the right 2013 partial hysterectomy 2009 stent in my heart 2018 heart ablation 2019 [id number] 03/14/2022 Last Documented On 4 1:11PM ; [facility] Severe Pain 03/14/2022 Last Documented On 4 1:11PM ; [facility] Uses a cane for support 03/14/2022 Last Documented On 4 1:11PM ; [facility] Which brand of pacemaker/defibrillator d o you have? Biotronik 03/14/2022 Last Documented On 4 1:11PM ; [facility] Family History Includes: Family History addressed during this encounter Description Last Updated Family history of Arthritis 03/14/2022 Last Documented On 4 1:11PM ; [facility] Family history of ischemic heart disease 03/14/2022 Last Documented On 4 1:11PM ; [facility] Family history of stroke/paralysis 03/14 Last Documented On 4 1:11PM ; [facility] Paternal history of Arthritis 03/14/2022 Last Documented On 4 1:11PM ; [facility] Paternal history of family history of is chemic heart disease 03/14/2022 Last Documented On 4 1:11PM ; [facility] Review of Systems Includes: Review of [...] Diagnosis PAIN MANAGEMENT FOLLOW UP DENNISE FALL [facility] 024 1:03PM 1:58PM Chronic Pain Syndrome,Bulging Intervertebral Disc Lumbar,Polyneurop athy Diabetic,Spinal Stenosis Lumbar with Neurogenic Claudication,Spon dylosis with Radiculopathy Lumbar Region,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 Use of Opiate Analgesic,Myalgia , Other Site (M79.18) Insurance Includes: Active Insurance Policies Plan Name Member ID Group # Subscriber Relationship Effect arcadio Dates 1 - MEDICARE PART A CLAIMS/NGS [id number] vufind 2 - MEDICAID [place] MEDICARE SECOND [id number] vufind Clinical Notes Includes: Clinical Notes from this encounter * Progress note Date Encounter Last Documented by 10/07/2023 PAIN MANAGEMENT FOLLOW UP Last d ocumented on 10/08/2023; 9:10 AM, DENNISE FALL ANP-; [facility] Active Problems & Conditions [...] is scheduled to have surgery 06/10/23 at [facility]. She continues tylenol #3 as needed twice [...] muscle tightness and pressure. With her recent DC and hypotension we will avoid further medication. [...] comorbidities. Patient suffered a myocardial infarction and [place] and continues to be weak and hypotensive. [...] days. 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 Numbness and tingling in feet causes falls. After right knee replacement there was an increase in lateral thigh/knee numbness and more falls. Her neurologist placed her on permanent restrictions due to gait instability and she is now on disability. She had worked at [employer] for over 20 years. Gabapentin 300mg TID has been her dose for 5 plus years. She was originally treated by Dr Araujo until his jail and given oxycodone. Dr Cabrera assumed care until recently. He no longer prescribes pain medication. Her pcp placed her on Tylenol #3 at bedtime, which provides minimal relief. She really doesn't question additional pain medication and is open to a treatment plan that would include reduction of medication use. We discussed increasing gabapentin to 600mg tid and will do so if her time clock mechanic is ok with this, she is seeing [...] Which brand of pacemaker/defibrillator do you have? [employer], Please list all illnesses/conditions you have been diagnosed with: Two pinched nerves in my lower back neuropathy total right knee replacement heart disease, and Please list all surgeries: Right ankle 1988 right knee scope 4x 2018 total right knee replacement carpal tunnel both hands 2003 and just on the right 2012 partial hysterectomy 2009 stent in my heart 2018 heart ablation 2019 [id number]. Medical: Currently wearing eyeglasses, orthopedic history Left [...] syndrome [G89.4 - Chronic pain syndrome] - [facility] use of opiate analgesic [Z79.891 - terminal carman (current) use of opiate analgesic] Therapy - [...] in about 6 weeks. Plan StartCited - [facility] (current) use of opiate analgesic Lab: PRESCRIBED [...] but may be subject to typographical or stripper apprentice errors. Verify all diagnoses, medications, dosages, and patient instructions with patient and/or the originator of this document. Care Team - DAVID SHETTY- - Pain Management Health Reminders - Assess BMI satisfied 10/07/2023. - Assess Need for CT Lung Screen satisfied 10/07/2023. - Assess Tobacco Use satisfied 10/07/2023. - Depression Screening satisfied 10/07/2023.
--- OUTSIDE RECORDS SUMMARY | 2024-06-19 19:51 | XMS_ITS | CONTINUITY OF CARE DOCUMENT ---
Author Name juan r pete Address Unknown Organization [facility] Address [address] [place] [address] Phone [phone] Care Team Providers Care Cover Making Machine Operator Name Role Phone Iqra HAYWARD, Hussain Hathaway Unavailable Rehan Richmond Unavailable [phone] Pérez Merlos MD Unavailable [phone] PROBLEMS Condition Status Date Provider Notes Exposure [...] joseph MD SVT active Petra Tobar MD S/P DC AICD - Biotronik ( MR I Safe) active Micaela Jimenez Arthritis - osteo; R leg active Hussain [...] Preop cardiovasc. examination active Dante Escalona MD ENCOUNTERS Date Type Provider Location Encounter Diag nosis - In-person encounter Office Visit Hussain Escalona MD [facility] Preop cardiovasc. examination - In-person encounter Office Visit Hussain Escalona MD [facility] - In-person encounter Office Visit Hussain Escalona MD [facility] - In-person encounter Office Visit Hussain Escalona MD [facility] Hypotension - In-person encounter Office Visit Hussain Escalona MD [facility] Cardiology examination - In-person encounter Office Visit Hussain Escalona MD [facility] - In-person encounter Office Visit Hussain Escalona MD [facility] Office - In-person encounter Office Visit Hussain Escalona MD [facility] Mitral regurgitation - In-person encounter Office Visit Colby Obando MD [facility] CHF, acute, systolicCardiomyopathyLower extremity edema, bilateral - In-person encounter Office Visit Hussain Escalona MD [facility] - In-person encounter Office Visit Hussain Escalona MD [facility] Personal history of COVID-19, 06/2021 - In-person encounter Office Visit Hussain Escalona MD [facility] Diabetes Mellitus, Type II, uncontrolled - In-person encounter Office Visit Hussain Escalona MD [facility] - In-person encounter Office Visit Hussain Escalona MD [facility] Hypothyroidism - In-person encounter Office Visit Hussain Escalona MD [facility] Arthritis - osteo; R leg - In-person encounter Office Visit Petra Tobar MD [facility] S/P Biotronik (MRI Safe) Loop BioMonitor III - In-person encounter Office Visit Petra Tobar MD [facility] - In-person encounter Office Visit Hussain Escalona MD [facility] S/P DC AICD - Biotronik ( MRI Safe) - In-person encounter Office Visit [facility]ra [facility] - In-person encounter Office Visit Petra [place] [facility] - In-person encounter Office Visit Hussain Escalona MD [facility] - In-person encounter Office Visit [facility] VENTRICULAR TACHYCARDIASVT - In-person encounter Office Visit Hussain Escalona MD [facility] - In-person encounter Office Visit Hussain Escalona MD [facility] - In-person encounter Office Visit Hussain Escalona MD [facility] Office - In-person encounter Office Visit Hussain Escalona MD [facility] Fatigue - In-person encounter Office Visit Hussain Escalona MD [facility] - In-person encounter Office Visit Hussain Escalona MD [facility] - In-person encounter Office Visit Hussain Escalona MD [facility] - In-person encounter Office Visit Hussain Escalona MD [facility] OSAPAD - BLE with claudicationHeadache - In-person encounter Office Visit Hussain Escalona MD [facility] HypertensionCADStent ? Drug ElutingDM - type [...] blood pressure, cuff size regular Fa modesta [place] blood pressure, diastolic 107 mm[Hg] Fa ith [place] blood pressure, systolic 152 mm[Hg] Dane ortega [place] respiratory rate E&M 17 /min Emeli Ofelia iller oxygen saturation, oximetry 99 % [facility] pulse rate 77 /min Emeli [place] weight E&M 129 [lb_av] Emeli [place] height E&M 65 [in_i] [facility] Body Mass Index (Ratio) 24.63 kg/m2 [...] Cely nkLog blood pressure, systolic 123 mm[Hg] [facility] blood pressure, diastolic 84 mm[Hg] Reena torres [place] blood pressure, systolic 123 mm[Hg] [facility] maria e [place] oxygen saturation, oximetry 96 % Jannette Alegria pulse rate 97 /min Jannette soriano blood pressure, cuff size large Reena torres [place] weight E&M 173 [lb_av] Jannette soriano respiratory rate E&M 16 /min Crystal carr [place] height E&M 65 [in_i] Jannette soriano blood pressure, diastolic 80 mm[Hg] nkLog blood pressure, systolic 120 mm[Hg] Eva [facility] Body Mass Index (Ratio) 28.29 kg/m2 Kimberly Obando MD blood pressure, cuff size large Ke rri Gruenenfeldfredrick blood pressure, diastolic 80 mm[Hg] Ke rri Gruenenfelder blood pressure, systolic 120 mm[Hg] Ker ri Gruenenfeldfredrick oxygen saturation, oximetry 98 % Tamra Gruenenfeldfredrick respiratory rate E&M 16 /min Tamra G ruenenfelder pulse rate 98 /min Tamra Gruenenfe [facility] weight E&M 170 [lb_av] Tamra Eri [facility] height E&M 65 [in_i] Tamra Eri [facility] Body Mass Index (Ratio) 25.62 kg/m2 Nilesh Escalona MD blood pressure, diastolic 94 mm[Hg] Cely nkLog blood pressure, systolic 124 mm[Hg] Eva kLogic blood pressure, cuff size large Ta ismael Van blood pressure, diastolic 94 mm[Hg] Ta ismael [place] blood pressure, systolic 124 mm[Hg] [facility] oxygen saturation, oximetry 98 % [facility] respiratory rate E&M 20 /min [facility] pulse rate 128 /min [facility] weight E&M 154.0 [lb_av] [facility] height E&M 65 [in_i] Julianne [place] Body Mass Index (Ratio) 31.61 kg/m2 Nilesh [...] blood pressure, systolic 140 mm[Hg] Kri stmac [place] blood pressure, resting Yes Tico Nate pulse rate 96 /min Rebeca [place] oxygen saturation, oximetry 98 % Rebeca [place] respiratory rate E&M 18 /min Rebeca Nate weight E&M 191 [lb_av] Reebca Nate height E&M 65 [in_i] Rebeca Nate [...] Chastit y Adrián height E&M 65 [in_i] [facility] Body [facility] (Ratio) 33.11 kg/m2 Nilesh Escalona MD oxygen saturation, oximetry 98 % Genobeatriz Goldberg pulse rate 96 /min Geno Campbel l blood pressure, diastolic 82 mm[Hg] Cy ntnavarroa Goldberg blood pressure, systolic 128 mm[Hg] Charlotte beatriz Goldberg blood pressure, cuff size regular Cy [...] [place] oxygen saturation, oximetry 98 % Tonsha Reyonso respiratory rate E&M 18 /min Tonsha Reynoso [...] [place] blood pressure, systolic 122 mm[Hg] Ton [facility] weight E&M 202 [lb_av] Tonsha [place] height E&M 65 [in_i] [facility] [place] Body Mass Index (Ratio) 33.61 [...] ed Goldberg blood pressure, systolic 134 mm[Hg] Charlotte beatriz Goldberg oxygen saturation, oximetry 97 % Geno Goldberg respiratory rate E&M 16 /min Geno Goldberg pulse rate 87 /min Geno Plasencia l weight E&M 200 [lb_av] Geno Hansenbel l height E&M 65 [in_i] Geno Hansenbel l Body Mass Index (Ratio) 34.31 kg/m2 Nilesh Escalona MD blood pressure, diastolic 80 mm[Hg] Kr isty [place] blood pressure, systolic 120 mm[Hg] Kri sty Nate pulse rate 80 /min Rebeca [place] oxygen saturation, oximetry 98 % Rebeca Nate respiratory rate E&M 17 /min Rebcea Nate blood pressure, cuff size regular Kr isty Nate weight E&M 206.2 [lb_av] Rebeca Nate height E&M 65 [in_i] Rebeca [place] Body Mass Index (Ratio) 34.11 kg/m2 Nilesh [...] 0-149 High cholesterol, serum 143 mg/dL LinkLogic [phone]/09 /02 hemoglobin A1C, blood, as % of [...] Not Estab. platelet count 334 X10E3/UL [facility] [phone]/09 /02 red blood cell distribution width 12.6 [...] LinkLogic 3.5-5.2 sodium, serum 136 mmol/L [facility] 030-239 9253/09 /02 urea nitrogen/creatinine ratio, serum 14 LinkLogic [...] 0-149 High cholesterol, serum 140 mg/dL [facility] 340-475 1953/12 /24 alanine aminotransferase (SGPT), serum 16 1/L [...] LinkLogic 3.5-5.2 sodium, serum 135 mmol/L [facility] 234-335 7587/12 /24 urea nitrogen/creatinine ratio, serum 17 LinkLogic [...] Not Estab. platelet count 348 X10E3/UL [facility] 513-118 0869/07 /24 red blood cell distribution width 12.3 [...] LinkLogic 3.5-5.2 sodium, serum 141 mmol/L [facility] 157-158 2978/07 /24 urea nitrogen/creatinine ratio, serum 16 LinkLogic 9-23 eGFR if 119 mL/min/{1.7 3_m2} LinkLogic >59 eGFR if not 104 mL/min/{1.7 3_m2} LinkLogic >59 creatinine, serum 0.70 mg/dL [facility] 0.57-1.00 urea nitrogen, blood 11 mg/dL LinkLogic 6-24 blood glucose, random 154 mg/dL [facility] 65-99 High international normalized ratio (INR) 0.9 [facility] Normal prothrombin time (patient) 10.2 s [facility] free thyroxine index 2.2 LinkLogic 1.2-4.9 triiodothyronine resin uptake 28 % [facility] 24-39 thyroxine, serum, total 8.0 ug/dL [facility] 4.5-12.0 thyroid stimulating hormone, serum 1.430 u[IU]/mL LinkLog[facility] 0.450-4.500 ferritin, serum 133 ng/mL [facility] 15-150 iron saturation percent, serum 43 % [facility] 15-55 iron, serum 105 ug/dL [facility] 27-159 iron binding capacity, unsaturated 141 ug/dL [facility] 607-444 2564/01 /11 iron binding capacity, total 246 ug/dL [...] Not Estab. platelet count 360 X10E3/UL [facility] 450-283 3801/01 /11 red blood cell distribution width 13.1 [...] LinkLogic 3.5-5.2 sodium, serum 140 mmol/L [facility] [phone]/11 /14 urea nitrogen/creatinine ratio, serum 23 LinkLogic [...] LinkLogic 0-149 cholesterol, serum 125 mg/dL [facility] 476-464 7214/03 /21 hemoglobin A1C, blood, as % of total hemoglobin 9.4 % [facility] 4.8-5.6 High calcium, serum 9.1 mg/dL [facility]Log[facility] 8.7-10.2 carbon dioxide, venous blood 22 mmol/L LinkLogic 20-29 chloride, serum 104 mmol/L [facility] 96-106 potassium, serum 4.0 mmol/L LinkLogic 3.5-5.2 sodium, serum 139 mmol/L [facility] 370-396 1506/03 /21 urea nitrogen/creatinine ratio, serum 13 LinkLogic [...] LinkLogic 0-149 cholesterol, serum 118 mg/dL [facility] [phone]/09 /01 alanine aminotransferase (SGPT), serum 12 1/L [...] LinkLogic 3.5-5.2 sodium, serum 139 mmol/L LinkLogic 638-461 7778/09 /01 urea nitrogen/creatinine ratio, serum 20 LinkLogic [...] Take 1 tablet by mouth as directed [facility]ilol 6.25 mg tablet active TAKE 1 TABLET BY MOUTH TWICE DAILY 10/28 [facility] bumetanide 1 mg tablet active TAKE 1 TABLET BY MOUTH TWICE DAILY 07/11 Gertrude Lopez carvedilol 6.25 mg tablet completed Take 1 tablet by mouth twice a day 11/11 - 10/28 [facility] clopidogrel 75 mg tablet completed TAKE [...] a day 01/25 - 01/25 Maggie Ventimiglia [facility] losartan 25 mg tablet completed - 01/25 Maggie Ventimiglia [employer] tizanidine 2 mg tablet active Tamra Augustin Kerendia 20 mg tablet completed Take 1 tablet by mouth once a day 01/25 - Darline Morrow Entresto 24-26 mg tablet active Take 1 tablet by mouth twice a day 01/25 Maggie Ventimiglia [employer] carvedilol 6.25 mg tablet completed TAKE ONE TABLET BY MOUTH TWICE DAILY 01/25 - 11/11 Tamra Augustin Linzess 145 mcg capsule active Maggie Ventimiglia [employer] Jardiance 25 mg tablet active Maggie Ventimiglia [employer] losartan 25 mg tablet completed - 01/25 Maggie Ventimiglia [employer] Brilinta 90 mg tablet completed - 02/05 Jannette Alegria carvedilol 3.125 mg tablet completed - 01/25 Maggie Ventimiglia [employer] Vascepa 1 gram capsule completed TAKE 2 CAPSULES BY MOUTH TWICE DAILY 01/15 - Darline Morrow diltiazem HCl 30 mg tablet completed Take 1 tablet by mouth every eight hours 12/05 - 01/25 Maggie Ventimiglia [facility] aspirin 81 mg tablet,delayed release (DR/EC) active TAKE 1 TABLET BY MOUTH EVERY DAY 11/06 Tamra Augustin metoprolol succinate 100 mg tablet extended release 24 hr completed TAKE 1 TABLET BY MOUTH DAILY 09/19 - 01/25 Maggie Ventimiglia [employer] O[employer] lisinopril 10 mg tablet completed TAKE 1 TABLET BY MOUTH EVERY DAY DIRECTED 08/27 - 01/25 Maggie Ventimiglia [employer] OPERATOR Vascepa 1 gram capsule completed - 01/15 [...] three times a day 01/16 Maggie Connor [employer] OPERATOR SOCIAL HISTORY Date Observation Value Provider alcohol [...] Management Plan continue current therapy Maggie Connor [employer] OPERATOR HRA, CV Assess/Plan, Angina (inactive) Management Plan [...] type Claudette fofana ID [place] MEDICARE Medicare [id number] [facility] Medicaid 0 [id number] ADVANCE DIRECTIVES Name Date DISCUSSED - NO DECISION MADE TREATMENT PLAN Date Name Performer [id number],C, H er updated medication list for this problem includes: Entresto 24-26 Mg Tablet (Sacubitril-valsartan) ..... Take 1 tablet by mouth twice a day Jardiance 25 Mg Tablet (Empagliflozin) Aspirin 81 Mg Tablet,delayed Release (dr/ec) (Aspirin) ..... Take 1 tablet by mouth every day Metformin 1,000 Mg Tablet (Metformin) Hussain Escalona MD [id number],C,L IPID EANEL C HOLESTEROL 101 L 140 [...] by mouth twice daily Hussain Escalona MD [id number],C, N o LISHA with current CPAP treatment. Had home sleep study done on CPAP. Has sleep issues. The patient is using CPAP on a regular basis. The patient has been benefiting from therapy and should continue use. January 10, 2023 S fadi she has lost substantial weight, currently not on CPAP Hussain Escalona MD [id number],C, P atient with EF of 20%. ICD [...] EF 68% on 01/07/22 Hussain Escalona MD [id number],C, M itral Valve: T he mitral valve is normal in appearance and function. Mild mitral valve regurgitation N oted on echo from 01/07January 10, 2023 E CHO done in 2021, needs to have done in 2022 to evaluate mitral valve. Hussain Escalona MD [id number],C, R educed her Bumex twice a week. She may need additional sodium. Continue with Bumex twice a week dizziness has improved Hussain Escalona MD [id number],S, R educed her Bumex twice a week. She may need additional sodium. Hussain Escalona MD [id number],C, Echo, [facility] N ormal left ventricular size. Mild concentric [...] pulmonary hypertension. RPM monitor Hussain Escalona MD [id number],C, t ry dilt 30 q8 and then cd 120 if improved and tolerated Hussain Escalona MD [id number],C, Negative arterial study. Sees podiatry. s he had 3rd toe right foot amputated she may have PAD causing woulnd healing issues w e can do an angio and eval for occlusive PAD however she may have microvascular disease whcih may be inhibiting wound healing c an check with PODIATRY if angio is something they are interested in geting done Hussain Escalona MD [id number],C,n o new issues p tommy on getting back injections d id ok wiht podiatry surgery Hussain Escalona MD [id number],C, D APT PLAVIX WAS HELD FOR EVALUATING IF HER FATIGUE WIOULD IMPROVE AND DID NOT CHANGE SO WILL RESUME December 05, 2021 b ack on asa plavix February 05, 2022 Currently on ASA/Brillinta for recent stent placement March 29, 2022 R emains on ASA/Brillinta no bleeding issues. Had ISR for LAD stent Hussain Escalona MD [id number],S, H er updated medication list for this problem includes: Atorvastatin 80 Mg Tablet (Atorvastatin) ..... Take 1 tablet by mouth once a day Vascepa 1 Gram Capsule (Icosapent ethyl) ..... Take 2 capsules by mouth twice daily Hussain Escalona MD [id number],S, D APT PLAVIX WAS HELD FOR EVALUATING IF HER FATIGUE WIOULD IMPROVE AND DID NOT CHANGE SO WILL RESUME December 05, 2021 b ack on asa plavix February 05, 2022 Currently on ASA/Brillinta for recent stent placement March 29, 2022 R emains on ASA/Brillinta no bleeding issues. Had ISR for LAD stent Hussain Escalona MD [id number],C, o n ozempic has lost close to 50 pounds on [place] Hussain Escalona MD [id number],C, P atient with EF of 20%. ICD [...] EF 68% on 01/07/22 Hussain Escalona MD [id number],C, M itral Valve: T he mitral valve is normal in appearance and function. Mild mitral valve regurgitation N oted on echo from 01/07 Hussain Escalona MD [id number],S, P atient with EF of 20%. ICD [...] Jardiance and Entresto.Check labs. Hussain Escalona MD [id number],S, Echo, [facility] N ormal left ventricular size. Mild concentric [...] pulmonary hypertension. RPM monitor Hussain Escalona MD [id number],C,I mprovement of SOB, continue CHF med rx Hussain Escalona MD [id number],C, P atient with EF of 20%. ICD in place. Concern that worsening CHF/CMP d/t arrythmia or frequent PVCs will quantify with 24 hour monitor. She will continue medication therapy as noted above. February 05, 2022 W ill not be able to afford Kerendia, switched Lasix to Bumex bring her back in 1 week. Continue with Jardiance and Entresto. Hussain Escalona MD [id number],S,M itral Valve: T he mitral valve is normal in appearance and function. Mild mitral valve regurgitation N oted on echo from 01/07 Hussain Escalona MD [id number],C, D APT PLAVIX WAS HELD FOR EVALUATING IF HER FATIGUE WIOULD IMPROVE AND DID NOT CHANGE SO WILL RESUME December 05, 2021 b ack on asa plavix February 05, 2022 C urrently on ASA/Brillinta for recent stent placement Hussain Escalona MD [id number],C, T he following medications were removed from [...] (01/18/2021) HDL: 41 (01/18/2021) Hussain Escalona MD [id number],W,P atient with EF of 20%. ICD in place. Concern that worsening CHF/CMP d/t arrythmia or frequent PVCs will quantify with 24 hour monitor. She will continue medication therapy as noted above. Maggie Connor [facility] [id number],W,P atient presents with bilateral pitting edema R>L, in setting of volume overload. Discussed with Dr. Obando and low likelihood for DVT as on aspirin and brilinta. Most likely r/t volume overload. We will do venous doppler however, for further evaluation. Maggie Connor [facility] [id number],W,P teresa has acute systolic HF EF of [...] tablet under tongue as needed Maggie Connor [facility] [id number],S,P teresa has known history of CAD with [...] DR. Obando. T-wave abnormality/changes most likely post NH. We will adjust medications today with increase in BB dose. She will f/u in 2 weeks or sooner if needed. Encouraged patient if worsening or persistent symptoms to go to ER Maggie Connor [employer] [id number],S,t ry dilt 30 q8 and then cd 120 if improved and tolerated Hussain Escalona MD [id number],S, D APT PLAVIX WAS HELD FOR EVALUATING IF HER FATIGUE WIOULD IMPROVE AND DID NOT CHANGE SO WILL RESUME December 05, 2021 b ack on asa plavix Hussain Escalona MD [id number],C, Her updated medication list for this problem includes: Vascepa 1 Gram Capsule (Icosapent ethyl) Atorvastatin 40 Mg Tablet (Atorvastatin) okay to hold lipitor for a month to see how you feel b ack on chol med December 05, 2021 Hussian Escalona MD [id number],C, N o LISHA with current CPAP treatment. Had home sleep study done on CPAP. Has sleep issues. The patient is using CPAP on a regular basis. The patient has been benefiting from therapy and should continue use. Hussain Escalona MD [id number],C, Negative arterial study. Sees podiatry. Will obtain a sensilase. Hussain Escalona MD [id number],S,on ozempic cox s lost 30 pounds Hussain Escalona MD [id number],C, P zakia to implant ILR. Reviewed pros and cons. She is agreeable in having it done. May be missing arrhythmia on tele monitor. May 05, 2019 Sinus PVCs on ILR. J deneen 2021 g etting palps will add dilt 30 q8 and seehow she does then increaset to dilt cd 120 qd Hussain Escalona MD [id number],C, N o LISHA with current CPAP treatment. Had home sleep study done on CPAP. Has sleep issues. The patient is using CPAP on a regular basis. The patient has been benefiting from therapy and should continue use. Hussain Escalona MD [id number],S, Hussain Escalona MD [id number],C, 0 12/15/2017 Successful revascularization using the 3.25 x 15 mm Myrna Xience drug-eluting stent 3.25 x 15 mm Myrna Xience. LAD Hussain Escalona MD [id number],S, Negative arterial study. Sees podiatry. Will obtain a sensilase. Hussain Escalona MD [id number],C, S uccessful AV node slow pathway ablation on 11/25/2019 R emains on January 17, 2021 D evice check recently demonstrated in December episodes of SVT, reviewed with her, regarding this she does not have enough episodes to warrant repeat of ablation procedure. August 22, 2021 r are intermittent palpitaions Hussain Escalona MD [id number],C,H ad covid 2 months ago. She was vaccinated, no booster yet. Hussain Escalona MD [id number],S,A 1c is 9. Check sensilase for PAD Hussain Escalona MD [id number],C, Negative arterial study. Hussain Escalona MD [id number],C, N o LISHA with current CPAP treatment. Had home sleep study done on CPAP. Has sleep issues. The patient is using CPAP on a regular basis. The patient has been benefiting from therapy and should continue use. Hussain Escalona MD [id number],C, v accinated Hussain Escalona MD [id number],S,S he needs to be seen by an [...] 1,000 Mg Tablet (Metformin) Hussain Escalona MD [id number],C,T SH was okay W il checke thryodi levels H er updated medication list for this problem includes: Levo-t 100 Mcg Tablet (Levothyroxine) ..... Take 1 once a day Hussain Escalona MD [id number],S,D iabeteic nerve conduction study was performed, Dr [...] 1,000 Mg Tablet (Metformin) Hussain Escalona MD [id number],C, D APT PLAVIX WAS HELD FOR EVALUATING IF HER FATIGUE WIOULD IMPROVE AND DID NOT CHANGE SO WILL RESUME Hussain Escalona MD [id number],C, v accinated Hussain Escalona MD [id number],C, 0 12/15/2017 Successful revascularization using the 3.25 x 15 mm Myrna Xience drug-eluting stent 3.25 x 15 mm Myrna Xience. LAD Hussain Escalona MD [id number],C, A ICD per SK O n Toprol XL Hussain Escalona MD [id number],C, N o LISHA while using CPAP based [...] W ill review bloodwork Hussain Escalona MD [id number],C, S uccessful AV node slow pathway ablation on 11/25/2019 R emains on BB January 17, 2021 D evice check recently demonstrated in December episodes of SVT, reviewed with her, regarding this she does not have enough episodes to warrant repeat of ablation procedure. Hussain Escalona MD [id number],C,W il checke thryodi levels H er updated medication list for this problem includes: Levo-t 100 Mcg Tablet (Levothyroxine) ..... Take 1 once a day Hussain Escalona MD [id number],S,o lan to hold lipitor for a month to see how you feel Hussain Escalona MD [id number],C,m anaged by pcp H er updated medication list for this problem includes: Levo-t 100 Mcg Oral Tablet (Levothyroxine sodium) ..... 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 Hussain Escalona MD [id number],C, 0 12/15/2017 Successful revascularization using the 3.25 x 15 mm Myrna Xience drug-eluting stent 3.25 x 15 mm Myrna Xience. LAD Hussain Escalona MD [id number],C, A ICD per SK Hussain Escalona MD [id number],C, Negative arterial study. Hussain Escalona MD [id number],S,vaccinated Sa tyree Escalona MD Cardiology:Needs pre op [...] DR. Obando. T-wave abnormality/changes most likely post NH. We will adjust medications today with increase [...] DR. Obando. T-wave abnormality/changes most likely post NH. We will adjust medications today with increase [...] additional sodium. Hussain Escalona MD Cardiology: Echo, [facility] N ormal left ventricular size. Mild concentric [...] labs. Hussain Escalona MD Cardiology:01/07 Echo , [facility] N ormal left ventricular size. Mild concentric [...] medication therapy as noted above. Maggie Connor [facility] Cardiology:Patient p resents with bilateral pitting edema R>L, in setting of volume overload. Discussed with Dr. Obando and low likelihood for DVT as on aspirin and brilinta. Most likely r/t volume overload. We will do venous doppler however, for further evaluation. Maggie Bernsteinjaida [facility] Cardiology:Patient h as acute systolic HF EF [...] tablet under tongue as needed Maggie Nikolas [facility] Cardiology:Patient h as known history of CAD [...] DR. Obando. T-wave abnormality/changes most likely post NH. We will adjust medications today with increase in BB dose. She will f/u in 2 weeks or sooner if needed. Encouraged patient if worsening or persistent symptoms to go to ER Maggiestewart Connor [facility] Cardiology:try dilt 30 q8 and then cd [...] repeat of ablation procedure. Hussain Escalona MD Cardiology:Kvng check e thryodi levels H er updated [...] function Orders: Shane de anda No Charge (CPT-73916) Ponce Garcia Cardiology: B P today: 130/93 [...] has been given to the patient. [email or web address] May be Appropriate I CD for SECONDARY [...] has been given to the patient. [email or web address] May be Appropriate I CD for SECONDARY [...] - [facility] (*) 9 9214 MOD Complex (CPT-96659) Giuseppe Pierec TeleHealth- schedule ICD : H er updated [...] Hour (Metoprolol succinate) ..... One tab daily [facility] TeleHealth: H er updated medication list [...] Hour (Metoprolol succinate) ..... One tab daily [facility] TeleHealth: nonsustained VT & sustained SVT [...] hol: 125 (08/06/2018) HDL: 39 (08/06/2018) Hussain Esaclona MD Cardiology: N o LISHA while using [...] DIFF/PLT) (6399) C OMPREHENSIVE METABOLIC PANEL, W/EGFR (45435) L IPID PANEL (7600) P ROTHROMBIN TIME WITH INR (8847) P artial Thromboplastin Time, Activated (763) T HYROID PANEL (5859) 9 9215 HIGH Complex (CPT-36320) C omplete Echo (CPT-66812) A BLATION w/ Anesthesia (*) C T Cardiac with contrast (Pre-Ablation) (CPT-91856) Her updated medication list for this problem [...] plan. O rders: C BC (INCLUDES DIFF/PLT) (0737) C OMPREHENSIVE METABOLIC PANEL, W/EGFR (46722) L IPID PANEL (5290) P ROTHROMBIN TIME WITH INR (8847) P artial Thromboplastin Time, Activated (763) T HYROID PANEL (6207) 9 9215 HIGH Complex (CPT-71108) C omplete Echo (CPT-31202) A BLATION w/ Anesthesia (*) C T Cardiac with contrast (Pre-Ablation) (CPT-45464) Her updated medication list for this problem [...] ago. Will repeat since she had an NH and has snoring. July 21, 2019 F [...] 05, 2019 Sinus PVCs on ILR. Hussain Esaclona MD Cardiology:Still has fatigue, insulin pump has [...] ..... Take one tablet twice daily Hussain Escalona MD Cardiology: Negative arterial study. Hussain Escalona MD Cardiology: O n CPAP for mild LISHA. The patient is using CPAP on a regular basis. The patient has been benefiting from therapy and should continue use. Hussain Escalona MD Cardiology:[facility] sympt oms will get cath done despite [...] MD Cardiology follow up :INTERVENTION: 12/15/17 at [facility] 1 . Lesion attempted is proximal LAD. 2 . Guiding catheter, 6-Belarusian CLS 3.5. 3 . Guidewire, 0.014 BMW. [...] ago. Will repeat since she had an NH and has snoring. Hussain Escalona MD Cardiology New Patie nt:Likely due to recent NH. Check sleep study and PFTs. Hussain Escalona [...] one every 12 hours Orders: Filiberto DUMONT (CPT-99708) Hussain Escalona MD Cardiology New Patie nt:Followed [...] W/EGFR CBC (INCLUDES DIFF/P LT) DLCO - 55281 FRC - 03489 FVC - 78147 Sleep Study Home THYROID PANEL WITH T [...] minute walk test Ambulatory Oximetry DLCO - 86935 FRC - 96440 FVC - 31923 Mobile Cardiac Tele Sleep Study Home Complete [...] MD compl eted FVC / MVV - 26709 Petra tejada MD completed BLOOD COUNT HEMOGLOBIN Petra martinez MD completed FRC - 18652 Petra busch MD completed SpO2 w/o 6min walk/titration Petra Tobar MD completed DLCO - 59515 Petra busch MD completed EKG Petra busch [...] walk/titration Hussain Escalona MD completed FRC - 17647 Hussain Escalona MD comp leted DLCO - 96326 Hussain Escalona MD com pleted EKG Hussain Escalona MD compl eted
--- OUTSIDE RECORDS SUMMARY | 2024-06-19 19:51 | XMS_ITS | Clinical Summary ---
Author Organization [facility] Address [address] [place] [address] Phone Care Team Providers Care Electrical Mechanical Technician Name Role Phone EUFEMIA SYDNEY DENNISE Vita Unavailable [phone] CAMPOS WHEELER MD Primary Care Provider [phone] Reason for Visit and Chief Complaint The Chief Complaint is: 3 MO FU Problems Includes: Problems addressed during this encounter and other active Problems All Visits Onset Date Resolved Date Provider Condition S tatus Coronary Artery Disease Unknown JANAE Lynn [facility] RELATIONS DIRECTOR-FPA, BRIM CUTTER-BC Active Last Documented On 3 10:16AM ; [facility] Diabetes Mellitus Unknown JANAE Lynn [facility]ELON APR N-FPA, BRIM CUTTER-BC Active Last Documented On 3 10:18AM ; [facility] Hypothyroidism Unknown JANAE Lynn [facility] RELATIONS DIRECTOR-F PA, BRIM CUTTER-BC Active Last Documented On 3 10:18AM ; [facility] Plan of Treatment Education and Decision Aids were provided during visit for: Pill Count: three TYLENOL #3 Last Documented On 3 9:55AM ; [facility] Assessments Includes: Assessments from this encounter Findings - Bulging lumbar disc [M51.26 - Other intervertebral disc displacement, lumbar region] - Last Documented On 03/27/2023 10:20AM ; [facility] - Lumbar spondylosis with radiculopathy [M47.26 - Other spondylosis with radiculopathy, lumbar region] - Last Documented On 03/27/2023 10:20AM ; [facility] - Lumbar stenosis with neurogenic claudication [M48.062 - Spinal stenosis, lumbar region with neurogenic claudication] - Last Documented On 03/27/2023 10:20AM ; [facility] - Diabetic polyneuropathy [E13.42 - Other specified diabetes mellitus with diabetic polyneuropathy] - Last Documented On 03/27/2023 10:20AM ; [facility] - Myalgia [M79.18 - Myalgia, other site] - Last Documented On 03/27/2023 10:20AM ; [facility] - Chronic pain syndrome [G89.4 - Chronic pain syndrome] - Last Documented On 03/27/2023 10:20AM ; [facility] - penitentiary use of opiate analgesic [Z79.891 - penitentiary (current) use of opiate analgesic] - Last Documented On 03/27/2023 10:20AM ; [facility] Instructions Includes: Instructions from this encounter Education and Decision Aids were provided during visit for: Pill Count: three TYLENOL #3 Last Documented On 3 9:55AM ; [facility] Medical Equipment - Implanted Devices Includes: Current Devices No Medical Equipment Recorded Medications Includes: Medications discussed during this encounter and other current Medications Discontinued / Stopped on this date DENNISE GRIMES on 01/13/2023 Acetaminophen-Codeine 300-30 MG Oral Tablet Provider: DENNISE GRIMES Diagnosis: Spondylosis w/o myelopathy or radiculopathy, lumbar region Last Documented On 3 10:12AM By DENNISE GRIMES ; [facility] DULoxetine HCl 30 MG Oral Capsule Delayed Release Particles Provider: DENNISE SHIPLEY Diagnosis: Chronic pain syn drome Last Documented On 3 10:04AM By DENNISE GRIMES ; [facility] New / Renewed during this visit DENNISE GRIMES on 03/27/2023 Acetaminophen-Codeine 300-30 MG Oral Tablet Provider: DENNISE GRIMES 30 day supply: 60 tablet, 0 refills Diagnosis: Spinal stenosis, lumbar region with neurogenic claudication 1 po bid prn/ max 2 per day [facility] [address] [facility], [phone] - Last Documented On 4 4:06PM By [facility] ; [facility] Current Medications (continue as prescribed) Linzess 145 MCG Oral Capsule 11/03/2023 Provider: ISIDORO SCHMIDT Diagnosis: Constipation, un specified TAKE 1 CAPSULE BY MOUTH DAILY Last Documented On 4 1:40PM By JANAE [facility]IRD [facility] ; [facility] tiZANidine HCl 2 MG Oral Tablet 10/24/2023 Provider: JANAE HENNING BRIM CUTTER-CHRISTOFER Diagnosis: TAKE 1 TABLET BY MOUTH 2 TO 3 TIMES PER DAY NEEDED Last Documented On 4 10:26AM By JANAE NEALCHRISTOFER ; [facility] Acetaminophen-Codeine 300-30 MG Oral Tablet 10/08/2023 Provider: DENNISE GRIMES Diagnosis: Spinal stenosis, lumbar region with neurogenic claudication 1 po bid prn/ max 2 per day Last Documented On 4 9:26AM By DEN[facility]ISE [facility] ; [facility] Ozempic (0.25 or 0.5 MG/DOSE ) 2 MG/3ML Subcutaneous Solution Pen-injector 10/02/2023 Provider: Diagnosis: Last Documented On 10/07/2023 1:34PM By Laura RIVERA ; [facility] Ubrelvy 100 MG Oral Tablet 09/18/2023 Provider: Diagnosis: Last Documented On 10/07/2023 1:35PM By Laura RIVERA ; [facility] Qulipta 60 MG Oral Tablet 09/11/2023 Provider: Diagnosis: Last Documented On 10/07/2023 1:34PM By Laura RIVERA ; [facility] tiZANidine HCl 2 MG Oral Tablet 08/13/2023 Provider: JANAE HENNING BRIM CUTTERQUINTEN Diagnosis: TAKE 1 TABLET BY MOUTH 2 TO 3 TIMES PER DAY NEEDED Last Documented On 4 12:03PM By JANAE [facility]IRD [facility] ; [facility] Gentamicin Sulfate 0.1% External Ointment 07/11/2023 Provider: JW HARTM Diagnosis: Last Documented On 10/07/2023 1:33PM By Laura RIVERA ; [facility] Gabapentin 600 MG Oral Tablet 06/23/2023 Provider: [facility] Diagnosis: h diabetes lary litus with diabetic polyneuropathy TAKE 1 TABLET BY MOUTH THREE TIMES DAILY Last Documented On 4 8:40AM By DENNISE FALL [facility] ; [facility] DULoxetine HCl 60 MG Oral Capsule Delayed Release Particles 06/23/2023 Provider: DENNISE FALL [facility] Diagnosis: Chronic pain syn drome TAKE 1 CAPSULE BY MOUTH DAILY Last Documented On 4 8:40AM By DENNISE FALL [facility] ; [facility] Santyl 250 UNIT/GM External Ointment 06/06/2023 Prov ider: JW MARIN DPM Diagnosis: Last Documented On 10/07/2023 1:34PM By Laura RIVERA ; [facility] Bumetanide 1 MG Oral Tablet 09/13/2022 Provider: Diagnosis: Last Documented On 3 10:28AM By Laura RIVERA ; [facility] Kerendia 20 MG Oral Tablet 03/03/2022 Provider: Diagnosis: Last Documented On 03/14/2022 3:11PM By Laura RIVERA ; [facility] Brilinta 90 MG Oral Tablet 02/19/2022 Provider: Diagnosis: Last Documented On 03/14/2022 3:12PM By Laura RIVERA ; [facility] Carvedilol 6.25 MG Oral Tablet 01/26/2022 Provider: Diagnosis: Last Documented On 03/14/2022 3:06PM By Laura RIVERA ; [facility] Entresto 24-26 MG Oral Tablet 01/25/2022 Provider: Diagnosis: Last Documented On 03/14/2022 3:13PM By Laura RIVERA ; [facility] Jardiance 25 MG Oral Tablet 09/03/2021 Provider: Diagnosis: Last Documented On 09/20/2021 9:45AM By Laura RIVERA ; [facility] Aspirin 81 MG Oral Capsule 08/21/2021 Provider: Diagnosis: Last Documented On 08/21/2021 1:34PM By Laura RIVERA ; [facility] Nitroglycerin 0.4 MG Sublingual Tablet Sublingual 09/2021 Provider: Diagnosis: Last Documented On 08/21/2021 1:36PM By Laura RIVERA ; [facility] metFORMIN HCl 1000 MG Oral Tablet 08/20/2021 Provide r: CAMPOS WHEELER MD Diagnosis: Last Documented On 08/21/2021 1:30PM By Laura RIVERA ; [facility] Levothyroxine Sodium 100 MCG Oral Tablet 08/20/2021 Provider: CAMPOS WHEELER MD Diagnosis: Last Documented On 08/21/2021 1:30PM By Laura RIVERA ; [facility] Topiramate 25 MG Oral Tablet 2021 Provider: Diagnosis: Last Documented On 08/21/2021 1:31PM By Laura RIVERA ; [facility] Atorvastatin Calcium 40 MG Oral Tablet 08/09/2021 Pr ovider: CAMPOS WHEELER MD Diagnosis: Last Documented On 08/21/2021 1:31PM By Luara RIVERA ; [facility] Past Medications on file Bumetanide 1 MG Oral Tablet 05/23/2022 - 06/22/2022 Pr ovider: Diagnosis: Last Documented On 10:20AM By JANAE TURNER ; [facility] Medications Administered Includes: Administered Medications from this encounter No Administered Medications Recorded Vital Signs Includes: Vital Signs from this encounter Vital Name 03/27/2023 09:48A Blood Pressure Sitting L 86/62 Pulse Rate-Sitting (bpm) 80 Temp-Temporal 96.6 Height (in) 65 Weight (lb) 134 Body Mass Index 22.3 Body Surface Area 1.7 Pain Level 6 Oxygen Saturation (%) 99 Last Documented: On 03/27/2023 9:51AM ; [facility] Results Includes: Results discussed during this [...] is scheduled to have surgery 06/10/23 at [facility]. She continues tylenol #3 as needed twice [...] muscle tightness and pressure. With her recent VT and hypotension we will avoid further medication. [...] comorbidities. Patient suffered a myocardial infarction and Bartolo and continues to be weak and hypotensive. [...] days. She has an upcoming appt with caustic mixer. Numbness and tingling in feet causes falls. After right knee replacement there was an increase in lateral thigh/knee numbness and more falls. Her neurologist placed her on permanent restrictions due to gait instability and she is now on disability. She had worked at [employer] for over 20 years. Gabapentin 300mg TID has been her dose for 5 plus years. She was originally treated by Dr Araujo until his intermediate and given oxycodone. Dr Cabrera assumed care until recently. He no longer prescribes pain medication. Her pcp placed her on Tylenol #3 at bedtime, which provides minimal relief. She really doesn't question additional pain medication and is open to a treatment plan that would include reduction of medication use. We discussed increasing gabapentin to 600mg tid and will do so if her improvement leader is ok with this, she is seeing [...] 07/26/2022 Last Documented On 3 9:48AM ; [facility] Difficulty walking 08/21/2021 Last Documented On 3 9:48AM ; [facility] Smoking Status Unknown Procedures and Surgical History Includes: Procedures from this encounter Procedures Code Diagnosis Performing Provider Service L ocation Service Date use of tobacco assessment performed 1000F Last Documented On 3 9:55AM ; [facility] review of medications documented 1160F Last Documented On 3 9:55AM ; [facility] screening for adult depression: impressi on and score seven Last Documented On 3 9:48AM ; [facility] standardized depression screening: posit arcadio for symptoms Last Documented On 3 9:48AM ; [facility] Clinical summary provided to patient Last Documented On 3 9:48AM ; [facility] SOAPP-R: total score 4 Last Documented On 3 9:48AM ; [facility] Surgical History Last Updated Pacemaker 03/14/2022 Last Documented On 3 9:48AM ; [facility] Medical History Includes: Medical History addressed during this encounter Description Last Updated Has a fear of falling. 05/23/2022 Last Documented On 3 9:48AM ; [facility] Has had a fall in the last 12 months. Last Documented On 3 9:48AM ; [facility] History of acute myocardial infarction A ugust 202103/14/2022 Last Documented On 3 9:48AM ; [facility] Currently wearing eyeglasses 03/14/2022 Last Documented On 3 9:48AM ; [facility] Deep muscle stimulation 03/14/2022 Last Documented On 3 9:48AM ; [facility] Injection/Nerve blocks 03/14/2022 Last Documented On 3 9:48AM ; [facility] Physical therapy 03/14/2022 Last Documented On 3 9:48AM ; [facility] Please list all illnesses/co nditions you have been diagnosed with: Two pinched nerves in my lower back neuropathy total right knee replacement heart disease 03/14/2022 Last Documented On 3 9:48AM ; [facility] Please list all surgeries: R ight ankle 1988 right knee scope 4x 2018 total right knee replacement carpal tunnel both hands 2004 and just on the right 2012 partial hysterectomy 2009 stent in my heart 2018 heart ablation 2019 [id number] 03/14/2022 Last Documented On 3 9:48AM ; [facility] Severe Pain 03/14/2022 Last Documented On 3 9:48AM ; [facility] Uses a cane for support 03/14/2022 Last Documented On 3 9:48AM ; [facility] Which brand of pacemaker/defibrillator d o you have? Biotronik 03/14/2022 Last Documented On 3 9:48AM ; [facility] Family History Includes: Family History addressed during this encounter Description Last Updated Family history of Arthritis 03/14/2022 Last Documented On 3 9:48AM ; [facility] Family history of ischemic heart disease 03/14/2022 Last Documented On 3 9:48AM ; [facility] Family history of stroke/paralysis 03/14 Last Documented On 3 9:48AM ; [facility] Paternal history of Arthritis 03/14/2022 Last Documented On 3 9:48AM ; [facility] Paternal history of family history of is chemic heart disease 03/14/2022 Last Documented On 3 9:48AM ; [facility] Review of Systems Includes: Review of [...] Diagnosis PAIN MANAGEMENT FOLLOW UP DENNISE FALL [facility] 023 9:32AM 10:11AM Chronic Pain Syndrome,Bulging Intervertebral Disc Lumbar,Polyneurop athy Diabetic,Spinal Stenosis Lumbar with Neurogenic Claudication,Spon dylosis with Radiculopathy Lumbar Region,Fpc Use of Opiate Analgesic,Myalgia , Other Site (M79.18) Insurance Includes: Active Insurance Policies Plan Name Member ID Group # Subscriber Relationship Effect arcadio Dates 1 - MEDICARE PART A CLAIMS/NGS [id number] [employer]NAM [employer] DOLLAR Self 2 - MEDICAID OF [place] MEDICARE SECOND [id number] ANAM K DOLLAR Self Clinical Notes Includes: Clinical Notes from this encounter * Progress note Date Encounter Last Documented by 03/27/2023 PAIN MANAGEMENT FOLLOW UP Last d ocumented on 03/27/2023; 10:20 AM, DENNISE FALL ANP-; [facility] Active Problems & [...] is scheduled to have surgery 06/10/23 at [facility]. She continues tylenol #3 as needed twice [...] muscle tightness and pressure. With her recent VT and hypotension we will avoid further medication. [...] comorbidities. Patient suffered a myocardial infarction and Bartolo and continues to be weak and hypotensive. [...] days. She has an upcoming appt with caustic mixer. Numbness and tingling in feet causes falls. After right knee replacement there was an increase in lateral thigh/knee numbness and more falls. Her neurologist placed her on permanent restrictions due to gait instability and she is now on disability. She had worked at [employer] for over 20 years. Gabapentin 300mg TID has been her dose for 5 plus years. She was originally treated by Dr Araujo until his intermediate and given oxycodone. Dr Cabrera assumed care until recently. He no longer prescribes pain medication. Her pcp placed her on Tylenol #3 at bedtime, which provides minimal relief. She really doesn't question additional pain medication and is open to a treatment plan that would include reduction of medication use. We discussed increasing gabapentin to 600mg tid and will do so if her improvement leader is ok with this, she is seeing [...] Which brand of pacemaker/defibrillator do you have? BiotroniSkipola, Please list all illnesses/conditions you have been diagnosed with: Two pinched nerves in my lower back neuropathy total right knee replacement heart disease, and Please list all surgeries: Right ankle 1988 right knee scope 4x 2018 total right knee replacement carpal tunnel both hands 2004 and just on the right 2012 partial hysterectomy 2009 stent in my heart 2018 heart ablation 2019 [id number]. Medical: Currently wearing eyeglasses, orthopedic history Left [...] syndrome [G89.4 - Chronic pain syndrome] - exterminator termite use of opiate analgesic [Z79.891 - penitentiary (current) use of opiate analgesic] Therapy - [...] but may be subject to typographical or oncology technician errors. Verify all diagnoses, medications, dosages, and patient instructions with patient and/or the originator of this document. Care Team - DAVID SHETTY- - Pain Management Health Reminders - Assess BMI satisfied 03/27/2023. - Assess Need for CT Lung Screen satisfied 03/27/2023. - Assess Tobacco Use satisfied 03/27/2023. - Depression Screening satisfied 03/27/2023.
--- OUTSIDE RECORDS SUMMARY | 2024-06-19 19:51 | XMS_ITS | Clinical Summary ---
Author Organization [facility] Address [address] [place] [address] Care Team Providers Care Supervisor Scouring Pads Name Role Phone Rehan Mann PA-C Primary Care Provider [phone] Social History Tobacco Use Types Packs/Day Years [...] Description 01/11/2025 12:30 PM CDT Office Visit [facility], [facility] [address] [place] [address] Sergey Everett DO [address] [place] [address] Health Maintenance Due Date Last [...] 12/05/2023 Insurance MEDICARE [place]ICAID [place] Care Teams Supervisor Scouring Pads Relationship Specialty Start Date End Date Rehan Mann PA-C [address] [place] [address] PCP - General Family Medicine 08/07/23
--- OUTSIDE RECORDS SUMMARY | 2024-06-19 19:51 | XMS_ITS | Clinical Summary ---
Author Organization [employer] [id number] Address [address] [place] [address] Care Team Providers Care Cotton Farmer Name Role Phone Evelina Sifuentes MD Primary Care Provider [phone] Active Problems Patient Care Coordination No te Formatting of this note migh t be different from the original. Dr. Petra Tobar Security Architect - [facility] Dr. Eneida Collier - DPM - [facility] Dr. 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
--- OUTSIDE RECORDS SUMMARY | 2024-06-19 19:51 | XMS_ITS | Clinical Summary ---
Author Organization [facility] Address [address] [place] [address] Phone Care Team Providers Care Clinical Haematologist Name Role Phone EUFEMIA SYDNEY DENNISE Vita Unavailable [phone] CAMPOS WHEELER MD Primary Care Provider [phone] Reason for Visit and Chief Complaint RX ISSUE/REFILL Problems Includes: Problems addressed during this encounter and other active Problems All Visits Onset Date Resolved Date Provider Condition S tatus Coronary Artery Disease Unknown JANAE BIRD APRN-FPA, DIRECTOR OF CLINICAL APPLICATIONS-BC Active Last Documented On 3 10:16AM ; [facility] Diabetes Mellitus Unknown JANAE BIRD APR N-FPA, DIRECTOR OF CLINICAL APPLICATIONS-BC Active Last Documented On 3 10:18AM ; [facility] Hypothyroidism Unknown JANAE BIRD APRN-F PA, DIRECTOR OF CLINICAL APPLICATIONS-BC Active Last Documented On 3 10:18AM ; [facility] Plan of Treatment No Plan of Treatment [...] On 4 1:40PM By JANAE TURNERBC ; [facility] tiZANidine HCl 2 MG Oral Tablet 10/24/2023 Provider: JANAE G PELON MEDICAL PARASITOLOGIST-FPA, DIRECTOR OF CLINICAL APPLICATIONS-BC Diagnosis: TAKE 1 TABLET BY MOUTH 2 TO 3 TIMES PER DAY NEEDED Last Documented On 4 10:26AM By JANAE BIRD [facility] ; [facility] Acetaminophen-Codeine 300-30 MG Oral Tablet 10/08/2023 Provider: DENNISE GRIMES Diagnosis: Spinal stenosis, lumbar region with neurogenic claudication 1 po bid prn/ max 2 per day Last Documented On 4 9:26AM By DENNISE HERNANDEZ ; [facility] Ozempic (0.25 or 0.5 MG/DOSE ) 2 MG/3ML Subcutaneous Solution Pen-injector 10/02/2023 Provider: Diagnosis: Last Documented On 10/07/2023 1:34PM By Laura RIVERA ; [facility] Ubrelvy 100 MG Oral Tablet 09/18/2023 Provider: Diagnosis: Last Documented On 10/07/2023 1:35PM By Laura RIVERA ; [facility] Qulipta 60 MG Oral Tablet 09/11/2023 Provider: Diagnosis: Last Documented On 10/07/2023 1:34PM By Laura RIVERA ; 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 TAKE 1 TABLET BY MOUTH THREE TIMES DAILY Last Documented On 4 8:40AM By DENNISE GRIMES ; [facility] DULoxetine HCl 60 MG Oral Capsule Delayed Release Particles 06/23/2023 Provider: DENNISE Barnes Diagnosis: Chronic pain syn drome TAKE 1 CAPSULE BY MOUTH DAILY Last Documented On 4 8:40AM By DENNISE FALL [facility] ; [facility] Santyl 250 UNIT/GM External Ointment 06/06/2023 Prov ider: JW MARIN DPM Diagnosis: Last Documented On 10/07/2023 1:34PM By Laura RIVERA ; [facility] Bumetanide 1 MG Oral Tablet 09/13/2022 Provider: Diagnosis: Last Documented On 3 10:28AM By Laura RIVERA ; [facility] Kerendia 20 MG Oral Tablet 03/03/2022 Provider: Diagnosis: Last Documented On 03/14/2022 3:11PM By Laura RIVERA ; [facility] Brilinta 90 MG Oral Tablet 02/19/2022 Provider: Diagnosis: Last Documented On 03/14/2022 3:12PM By Laura RIVERA ; [facility] Carvedilol 6.25 MG Oral Tablet 01/26/2022 Provider: Diagnosis: Last Documented On 03/14/2022 3:06PM By Laura RIVERA ; [facility] Entresto 24-26 MG Oral Tablet 01/25/2022 Provider: Diagnosis: Last Documented On 03/14/2022 3:13PM By Laura RIVERA ; [facility] Jardiance 25 MG Oral Tablet 09/03/2021 Provider: Diagnosis: Last Documented On 09/20/2021 9:45AM By Laura RIVERA ; [facility] Aspirin 81 MG Oral Capsule 08/21/2021 Provider: Diagnosis: Last Documented On 08/21/2021 1:34PM By Laura RIVERA ; [facility] Nitroglycerin 0.4 MG Sublingual Tablet Sublingual 09/2021 Provider: Diagnosis: Last Documented On 08/21/2021 1:36PM By Laura RIVERA ; [facility] metFORMIN HCl 1000 MG Oral Tablet 08/20/2021 Provide r: CAMPOS WHEELER MD Diagnosis: Last Documented On 08/21/2021 1:30PM By Laura RIVERA ; [facility] Levothyroxine Sodium 100 MCG Oral Tablet 08/20/2021 Provider: CAMPOS WHEELER MD Diagnosis: Last Documented On 08/21/2021 1:30PM By Laura RIVERA ; [facility] Topiramate 25 MG Oral Tablet 2021 Provider: Diagnosis: Last Documented On 08/21/2021 1:31PM By Laura RIVERA ; [facility] Atorvastatin Calcium 40 MG Oral Tablet 08/09/2021 Pr ovider: CAMPOS WHEELER MD Diagnosis: Last Documented On 08/21/2021 1:31PM By Laura RIVERA ; [facility] Past Medications on file Bumetanide 1 MG Oral Tablet 05/23/2022 - 06/22/2022 Pr ovider: Diagnosis: Last Documented On 3 10:20AM By JANAE TURNER ; [facility] Medications Administered Includes: Administered Medications from this encounter No Administered Medications Recorded Results Includes: Results discussed during this encounter No Results Recorded For Specified Dates History of Present Illness Includes: History of Present Illness from this encounter HPI Pharmacy name:~location:[facility]. Social History Description Last Updated Tobacco non-user 07/26/2022 Last Documented On 4 1:09PM ; [facility] Difficulty walking 08/21/2021 Last Documented On 4 1:09PM ; [facility] Smoking Status Unknown Procedures and Surgical History Surgical History Last Updated Pacemaker 03/14/2022 Last Documented On 4 1:09PM ; [facility] Medical History Includes: Medical History addressed during this encounter Description Last Updated Has a fear of falling. 05/23/2022 Last Documented On 4 1:09PM ; [facility] Has had a fall in the last 12 months. Last Documented On 4 1:09PM ; [facility] History of acute myocardial infarction A ugust 202103/14/2022 Last Documented On 4 1:09PM ; [facility] Currently wearing eyeglasses 03/14/2022 Last Documented On 4 1:09PM ; [facility] Deep muscle stimulation 03/14/2022 Last Documented On 4 1:09PM ; [facility] Injection/Nerve blocks 03/14/2022 Last Documented On 4 1:09PM ; [facility] Physical therapy 03/14/2022 Last Documented On 4 1:09PM ; [facility] Please list all illnesses/co nditions you have been diagnosed with: Two pinched nerves in my lower back neuropathy total right knee replacement heart disease 03/14/2022 Last Documented On 4 1:09PM ; [facility] Please list all surgeries: R ight ankle 1988 right knee scope 4x 2018 total right knee replacement carpal tunnel both hands 2004 and just on the right 2012 partial hysterectomy 2009 stent in my heart 2018 heart ablation 2019 [id number] 03/14/2022 Last Documented On 4 1:09PM ; [facility] Severe Pain 03/14/2022 Last Documented On 4 1:09PM ; [facility] Uses a cane for support 03/14/2022 Last Documented On 4 1:09PM ; [facility] Which brand of pacemaker/defibrillator d o you have? Biotronik 03/14/2022 Last Documented On 4 1:09PM ; [facility] Family History Includes: Family History addressed during [...] Dates 1 - MEDICARE PART A CLAIMS/NGS [id number] ANAM K DOLLAR Self 2 - MEDICAID [place] MEDICARE SECOND [id number] ANAM Lalina DOLLAR Self Clinical Notes Includes: Clinical Notes from this encounter * Progress note Date Encounter Last Documented by 06/09/2023 RX ISSUE/REFILL Last documented on 06/10/2023; 8:28 AM, DENNISE FALL ANP-; [facility] Active Problems & Conditions - Coronary Artery Disease - Diabetes Mellitus - Hypothyroidism Chief Complaint Phone Call - Chief Concern: Reason for call:REFILL Patient is requesting a refill on TYLENOL #3 ~How is medication taken? BID ~How many are left?OUT OF MEDICATION Risk Assessment Score: LOW ~[place]:03/28/23 Last Office Visit: 03/27/23 ~ pt phone # for Return call: [phone] ~Last Drug Screen:09/03/22 ~Date/Initials: 06/09/23, KMS. History of Present Illness Pharmacy name:~location:[facility]. Past Medical/Surgical History Reported: Injection/Nerve blocks, Deep muscle stimulation, Physical therapy, Which brand of pacemaker/defibrillator do you have? [employer], Please list all illnesses/conditions you have been diagnosed with: Two pinched nerves in my lower back neuropathy total right knee replacement heart disease, and Please list all surgeries: Right ankle 1988 right knee scope 4x 2018 total right knee replacement carpal tunnel both hands 2003 and just on the right 2012 partial hysterectomy 2009 stent in my heart 2018 heart ablation 2019 [id number]. Medical: Currently wearing eyeglasses, orthopedic history Left [...]
--- OUTSIDE RECORDS SUMMARY | 2024-06-19 19:52 | XMS_ITS ---
Care Plan - [facility] Created on: June 19, 2024 ANAM JAQUEZ : 1970 Sex: Female Author Organization [facility] Address [address] [place] [address] Phone Care Team Providers Care Auto Air Conditioning Installer Name Role Phone DENNISE TRUJILLO Unavailable [phone] CAMPOS WHEELER MD Primary Care Provider [phone]
--- OUTSIDE RECORDS SUMMARY | 2024-06-19 19:52 | XMS_ITS | Clinical Summary ---
Author Organization [facility] Address [address] [place] [address] Phone Care Team Providers Care Finance Controller Name Role Phone EUFEMIA GRIMES, DENNISE Gorman Unavailable [phone] CAMPOS WHEELER MD Primary Care Provider [phone] Reason for Visit and Chief Complaint RX ISSUE/REFILL Problems Includes: Problems addressed during this encounter and other active Problems All Visits Onset Date Resolved Date Provider Condition S tatus Coronary Artery Disease Unknown JANAE Shane PELON SIDE PANEL PADDER-FPA, PAPER SHEETER-BC Active Last Documented On 3 10:16AM ; [facility] Diabetes Mellitus Unknown JANAE Shane PELON APR N-FPA, PAPER SHEETER-BC Active Last Documented On 3 10:18AM ; [facility] Hypothyroidism Unknown JANAE Shane PELON SIDE PANEL PADDER-F PA, PAPER SHEETER-BC Active Last Documented On 3 10:18AM ; [facility] Plan of Treatment No Plan of Treatment [...] On 4 4:06PM By DENNISE GRIMES ; [facility] New / Renewed during this visit DENNISE GRIMES on 06/12/2023 Acetaminophen-Codeine 300-30 MG Oral Tablet Provider: DENNISE HERNANDEZ 30 day supply: 60 tablet, 0 refills Diagnosis: Spinal stenosis, lumbar region with neurogenic claudication 1 po bid prn/ max 2 per day [facility]: [facility] [id number] [facility], [id number] - Last Documented On 4 10:00AM [facility] Current Medications (continue as prescribed) Linzess 145 MCG Oral Capsule 11/03/2023 Provider: ISIDORO SCHMIDT Diagnosis: Constipation, un specified TAKE 1 CAPSULE BY MOUTH DAILY Last Documented On 4 1:40PM [facility] ; [facility] tiZANidine HCl 2 MG Oral Tablet 10/24/2023 Provider: JANAE HENNING PAPER SHEETER-CHRISTOFER Diagnosis: TAKE 1 TABLET BY MOUTH 2 TO 3 TIMES PER DAY NEEDED Last Documented On 4 10:26AM By JANAE BIRD [facility] ; [facility] Acetaminophen-Codeine 300-30 MG Oral Tablet 10/08/2023 Provider: DENNISE HERNANDEZ Diagnosis: Spinal stenosis, lumbar region with neurogenic claudication 1 po bid prn/ max 2 per day Last Documented On 4 9:26AM [facility] ; [facility] Ozempic (0.25 or 0.5 MG/DOSE ) 2 MG/3ML Subcutaneous Solution Pen-injector 10/02/2023 Provider: Diagnosis: Last Documented On 10/07/2023 1:34PM By Laura RIVERA ; [facility] Ubrelvy 100 MG Oral Tablet 09/18/2023 Provider: Diagnosis: Last Documented On 10/07/2023 1:35PM By Laura RIVERA ; [facility] Qulipta 60 MG Oral Tablet 09/11/2023 Provider: Diagnosis: Last Documented On 10/07/2023 1:34PM By Laura RIVERA ; [facility] tiZANidine HCl 2 MG Oral Tablet 08/13/2023 Provider: JANAE BIRD APRN-FPA, [facility] Diagnosis: TAKE 1 TABLET BY MOUTH 2 TO 3 TIMES PER DAY NEEDED Last Documented On 4 12:03PM By JANAE BIRD 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 TAKE 1 TABLET BY MOUTH THREE TIMES DAILY Last Documented On 4 8:40AM [facility] ; [facility] DULoxetine HCl 60 MG Oral Capsule Delayed Release Particles 06/23/2023 Provider: DENNISE HERNANDEZ [facility] Diagnosis: Chronic pain syn drome TAKE 1 CAPSULE BY MOUTH DAILY Last Documented On 4 8:40AM By [facility] ; [facility] Santyl 250 UNIT/GM External Ointment 06/06/2023 Prov ider: JW MARIN DPM Diagnosis: Last Documented On 10/07/2023 1:34PM By Laura RIVERA ; [facility] Bumetanide 1 MG Oral Tablet 09/13/2022 Provider: Diagnosis: Last Documented On 3 10:28AM By Laura RIVERA ; [facility] Kerendia 20 MG Oral Tablet 03/03/2022 Provider: Diagnosis: Last Documented On 03/14/2022 3:11PM By Laura RIVERA ; [facility] Brilinta 90 MG Oral Tablet 02/19/2022 Provider: Diagnosis: Last Documented On 03/14/2022 3:12PM By Laura RIVERA ; [facility] Carvedilol 6.25 MG Oral Tablet 01/26/2022 Provider: Diagnosis: Last Documented On 03/14/2022 3:06PM By Laura RIVERA ; [facility] Entresto 24-26 MG Oral Tablet 01/25/2022 Provider: Diagnosis: Last Documented On 03/14/2022 3:13PM By Laura RIVERA ; [facility] Jardiance 25 MG Oral Tablet 09/03/2021 Provider: Diagnosis: Last Documented On 09/20/2021 9:45AM By Laura RIVERA ; [facility] Aspirin 81 MG Oral Capsule 08/21/2021 Provider: Diagnosis: Last Documented On 08/21/2021 1:34PM By Laura RIVERA ; [facility] Nitroglycerin 0.4 MG Sublingual Tablet Sublingual 09/2021 Provider: Diagnosis: Last Documented On 08/21/2021 1:36PM By Laura RIVERA ; [facility] metFORMIN HCl 1000 MG Oral Tablet 08/20/2021 Provide r: CAMPOS WHEELER MD Diagnosis: Last Documented On 08/21/2021 1:30PM By Laura RIVERA ; [facility] Levothyroxine Sodium 100 MCG Oral Tablet 08/20/2021 Provider: CMAPOS WHEELER MD Diagnosis: Last Documented On 08/21/2021 1:30PM By Laura RIVERA ; [facility] Topiramate 25 MG Oral Tablet 2021 Provider: Diagnosis: Last Documented On 08/21/2021 1:31PM By Laura RIVERA ; [facility] Atorvastatin Calcium 40 MG Oral Tablet 08/09/2021 Pr ovider: CAMPOS WHEELER MD Diagnosis: Last Documented On 08/21/2021 1:31PM By Laura RIVERA ; [facility] Past Medications on file Bumetanide 1 MG Oral Tablet 05/23/2022 - 06/22/2022 Pr ovider: Diagnosis: Last Documented On 3 10:20AM By JANAE TURNER ; [facility] Medications Administered Includes: Administered Medications from this encounter No Administered Medications Recorded Results Includes: Results discussed during this encounter No Results Recorded For Specified Dates History of Present Illness Includes: History of Present Illness from this encounter No History of Present Illness Recorded Social History Description Last Updated Tobacco non-user 07/26/2022 Last Documented On 4 3:32PM ; [facility] Difficulty walking 08/21/2021 Last Documented On 4 3:32PM ; [facility] Smoking Status Unknown Procedures and Surgical History Surgical History Last Updated Pacemaker 03/14/2022 Last Documented On 4 3:32PM ; [facility] Medical History Includes: Medical History addressed during this encounter Description Last Updated Has a fear of falling. 05/23/2022 Last Documented On 4 3:32PM ; [facility] Has had a fall in the last 12 months. Last Documented On 4 3:32PM ; [facility] History of acute myocardial infarction A ugust 202103/14/2022 Last Documented On 4 3:32PM ; [facility] Currently wearing eyeglasses 03/14/2022 Last Documented On 4 3:32PM ; [facility] Deep muscle stimulation 03/14/2022 Last Documented On 4 3:32PM ; [facility] Injection/Nerve blocks 03/14/2022 Last Documented On 4 3:32PM ; [facility] Physical therapy 03/14/2022 Last Documented On 4 3:32PM ; [facility] Please list all illnesses/co nditions you have been diagnosed with: Two pinched nerves in my lower back neuropathy total right knee replacement heart disease 03/14/2022 Last Documented On 4 3:32PM ; [facility] Please list all surgeries: R ight ankle 1988 right knee scope 4x 2018 total right knee replacement carpal tunnel both hands 2004 and just on the right 2012 partial hysterectomy 2009 stent in my heart 2018 heart ablation 2019 [id number] 03/14/2022 Last Documented On 4 3:32PM ; [facility] Severe Pain 03/14/2022 Last Documented On 4 3:32PM ; [facility] Uses a cane for support 03/14/2022 Last Documented On 4 3:32PM ; [facility] Which brand of pacemaker/defibrillator d o you have? Biotronik 03/14/2022 Last Documented On 4 3:32PM ; [facility] Family History Includes: Family History [...] Dates 1 - MEDICARE PART A CLAIMS/NGS [id number] [employer] 2 - MEDICA[place] MEDICARE SECOND [id number] [employer] Clinical Notes Includes: Clinical Notes from this encounter * Progress note Date Encounter Last Documented by 06/12/2023 RX ISSUE/REFILL Last documented on 06/12/2023; 4:07 PM, DENNISE GRIMES; [facility] Active Problems & Conditions - [...] in my heart 2018 heart ablation 2019 [id number]. Medical: Currently wearing eyeglasses, orthopedic history Left [...]
--- OUTSIDE RECORDS SUMMARY | 2024-06-19 19:52 | XMS_ITS | Clinical Summary ---
Author Organization [facility] Address [address] [place] [address] Phone Care Team Providers Care Direct Selling Counselor Name Role Phone EUFEMIA GRIMES, DENNISE Gorman Unavailable [phone] CAMPOS WHEELER MD Primary Care Provider [phone] Reason for Visit and Chief Complaint RX ISSUE/REFILL Problems Includes: Problems addressed during this encounter and other active Problems All Visits Onset Date Resolved Date Provider Condition S tatus Coronary Artery Disease Unknown JANAE BIRD COREMAKER-FPA, [employer] Active Last Documented On 3 10:16AM ; [facility] Diabetes Mellitus Unknown JANAE BIRD APR N-FPA, [employer] Active Last Documented On 3 10:18AM ; [facility] Hypothyroidism Unknown JANAE BIRD COREMAKER-F PA, [employer] Active Last Documented On 3 10:18AM ; [facility] Plan of Treatment No Plan [...] On 4 10:00AM By DENNISE GRIMES ; [facility] Current Medications (continue as prescribed) Linzess 145 MCG Oral Capsule 11/03/2023 Provider: JANAE BIRD APRN- FPA [facility] Diagnosis: Constipation, un specified TAKE 1 CAPSULE BY MOUTH DAILY Last Documented On 4 1:40PM By JANAE BIRD [facility] ; [facility] tiZANidine HCl 2 MG Oral Tablet 10/24/2023 Provider: JANAE BIRD APRN-FPA [facility] Diagnosis: TAKE 1 TABLET BY MOUTH 2 TO 3 TIMES PER DAY NEEDED Last Documented On 4 10:26AM By JANAE BIRD [facility] ; [facility] Acetaminophen-Codeine 300-30 MG Oral Tablet 10/08/2023 Provider: DENNISE GRIMES Diagnosis: Spinal stenosis, lumbar region with neurogenic claudication 1 po bid prn/ max 2 per day Last Documented On 4 9:26AM By DENNISE HERNANDEZ ; [facility] Ozempic (0.25 or 0.5 MG/DOSE ) 2 MG/3ML Subcutaneous Solution Pen-injector 10/02/2023 Provider: Diagnosis: Last Documented On 10/07/2023 1:34PM By Laura RIVERA ; [facility] Ubrelvy 100 MG Oral Tablet 09/18/2023 Provider: Diagnosis: Last Documented On 10/07/2023 1:35PM By Laura RIVERA ; [facility] Qulipta 60 MG Oral Tablet 09/11/2023 Provider: Diagnosis: Last Documented On 10/07/2023 1:34PM By Laura RIVERA ; [facility] tiZANidine HCl 2 MG Oral Tablet 08/13/2023 Provider: JANAE BIRD APRN-ALTHEA [facility] Diagnosis: TAKE 1 TABLET BY MOUTH 2 TO 3 TIMES PER DAY NEEDED Last Documented On 4 12:03PM By JANAE BIRD [facility] ; [facility] Gentamicin Sulfate 0.1% External Ointment 07/11/2023 Provider: JW MARIN DPM Diagnosis: Last Documented On 10/07/2023 1:33PM By Laura RIVERA ; [facility] Gabapentin 600 MG Oral Tablet 06/23/2023 Provider: DENNISE HERNANDEZBC Diagnosis: [facility] diabetes lary litus with diabetic polyneuropathy TAKE 1 TABLET BY MOUTH THREE TIMES DAILY Last Documented On 4 8:40AM By DENNISE FALL BANNER ; [facility] DULoxetine HCl 60 MG Oral Capsule Delayed Release Particles 06/23/2023 Provider: DENNISE FALL [facility] Diagnosis: Chronic pain syn drome TAKE 1 CAPSULE BY MOUTH DAILY Last Documented On 4 8:40AM By DENNISE FALL BANNER ; [facility] Santyl 250 UNIT/GM External Ointment 06/06/2023 Prov ider: JW MARIN DPM Diagnosis: Last Documented On 10/07/2023 1:34PM By Laura RIVERA ; [facility] Bumetanide 1 MG Oral Tablet 09/13/2022 Provider: Diagnosis: Last Documented On 3 10:28AM By Laura RIVERA ; [facility] Kerendia 20 MG Oral Tablet 03/03/2022 Provider: Diagnosis: Last Documented On 03/14/2022 3:11PM By Laura RIVERA ; [facility] Brilinta 90 MG Oral Tablet 02/19/2022 Provider: Diagnosis: Last Documented On 03/14/2022 3:12PM By Laura RIVERA ; [facility] Carvedilol 6.25 MG Oral Tablet 01/26/2022 Provider: Diagnosis: Last Documented On 03/14/2022 3:06PM By Laura RIVERA ; [facility] Entresto 24-26 MG Oral Tablet 01/25/2022 Provider: Diagnosis: Last Documented On 03/14/2022 3:13PM By Laura RIVERA ; [facility] Jardiance 25 MG Oral Tablet 09/03/2021 Provider: Diagnosis: Last Documented On 09/20/2021 9:45AM By Laura RIVERA ; [facility] Aspirin 81 MG Oral Capsule 08/21/2021 Provider: Diagnosis: Last Documented On 08/21/2021 1:34PM By Laura RIVERA ; [facility] Nitroglycerin 0.4 MG Sublingual Tablet Sublingual 09/2021 Provider: Diagnosis: Last Documented On 08/21/2021 1:36PM By Laura RIVERA ; [facility] metFORMIN HCl 1000 MG Oral Tablet 08/20/2021 Provide r: CAMPOS WHEELER MD Diagnosis: Last Documented On 08/21/2021 1:30PM By Laura RIVERA ; [facility] Levothyroxine Sodium 100 MCG Oral Tablet 08/20/2021 Provider: CAMPOS WHEELER MD Diagnosis: Last Documented On 08/21/2021 1:30PM By Laura RIVERA ; [facility] Topiramate 25 MG Oral Tablet 2021 Provider: Diagnosis: Last Documented On 08/21/2021 1:31PM By Laura RIVERA ; [facility] Atorvastatin Calcium 40 MG Oral Tablet 08/09/2021 Pr ovider: CAMPOS WHEELER MD Diagnosis: Last Documented On 08/21/2021 1:31PM By Laura RIVERA ; [facility] Past Medications on file Bumetanide 1 MG Oral Tablet 05/23/2022 - 06/22/2022 Pr ovider: Diagnosis: Last Documented On 3 10:20AM By JANAE BIRD [facility] ; [facility] Medications Administered Includes: Administered Medications from this encounter No Administered Medications Recorded Results Includes: Results discussed during this encounter No Results Recorded For Specified Dates History of Present Illness Includes: History of Present Illness from this encounter No History of Present Illness Recorded Social History Description Last Updated Tobacco non-user 07/26/2022 Last Documented On 4 1:47PM ; [facility] Difficulty walking 08/21/2021 Last Documented On 4 1:47PM ; [facility] Smoking Status Unknown Procedures and Surgical History Surgical History Last Updated Pacemaker 03/14/2022 Last Documented On 4 1:47PM ; [facility] Medical History Includes: Medical History addressed during this encounter Description Last Updated Has a fear of falling. 05/23/2022 Last Documented On 4 1:47PM ; [facility] Has had a fall in the last 12 months. Last Documented On 4 1:47PM ; [facility] History of acute myocardial infarction A ugust 202103/14/2022 Last Documented On 4 1:47PM ; [facility] Currently wearing eyeglasses 03/14/2022 Last Documented On 4 1:47PM ; [facility] Deep muscle stimulation 03/14/2022 Last Documented On 4 1:47PM ; [facility] Injection/Nerve blocks 03/14/2022 Last Documented On 4 1:47PM ; [facility] Physical therapy 03/14/2022 Last Documented On 4 1:47PM ; [facility] Please list all illnesses/co nditions you have been diagnosed with: Two pinched nerves in my lower back neuropathy total right knee replacement heart disease 03/14/2022 Last Documented On 4 1:47PM ; [facility] Please list all surgeries: R ight ankle 1988 right knee scope 4x 2018 total right knee replacement carpal tunnel both hands 2003 and just on the right 2012 partial hysterectomy 2009 stent in my heart 2018 heart ablation 2019 [id number] 03/14/2022 Last Documented On 4 1:47PM ; [facility] Severe Pain 03/14/2022 Last Documented On 4 1:47PM ; [facility] Uses a cane for support 03/14/2022 Last Documented On 4 1:47PM ; [facility] Which brand of pacemaker/defibrillator d o you have? Biotronik 03/14/2022 Last Documented On 4 1:47PM ; [facility] Family History Includes: Family History addressed during [...] Dates 1 - MEDICARE PART A CLAIMS/NGS [id number] [facility] [place] 2 - MEDICAID [place] MEDICARE SECOND [id number] [facility] [place] Clinical Notes Includes: Clinical Notes from this encounter * Progress note Date Encounter Last Documented by 07/18/2023 RX ISSUE/REFILL Last documented on 07/21/2023; 10:00 AM, DENNISE FALL ANP-; [facility] Active Problems & [...] ~ pt phone # for Return call: [phone] ~Last Drug Screen:09/03/22 ~Date/Initials: 07/18/23 CB. Past Medical/Surgical History Reported: Injection/Nerve blocks, Deep muscle stimulation, Physical therapy, Which brand of pacemaker/defibrillator do you have? BiotroniSeeWhy, Please list all illnesses/conditions you have been diagnosed with: Two pinched nerves in my lower back neuropathy total right knee replacement heart disease, and Please list all surgeries: Right ankle 1988 right knee scope 4x 2018 total right knee replacement carpal tunnel both hands 2004 and just on the right 2012 partial hysterectomy 2009 stent in my heart 2018 heart ablation 2019 [id number]. Medical: Currently wearing eyeglasses, orthopedic history Left [...]
--- OUTSIDE RECORDS SUMMARY | 2024-06-19 19:52 | XMS_ITS ---
Author Organization [facility] Address [address] [place] [address] Phone Care Team Providers Care Brazer Cont[employer] Name Role Phone EUFEMIA GRIMES, DENNISE Vita Unavailable [phone] CAMPOS WHEELER MD Primary Care Provider [phone] Problems Includes: Active, inactive, and resolved Problems All Visits Onset Date Resolved Date Provider Condition S tatus Coronary Artery Disease Unknown JANAE Lynn PELON ABALONE PROCESSOR-FPA, FIELD IRRIGATION WORKER-BC Active Last Documented On 3 10:16AM ; [facility] Diabetes Mellitus Unknown JANAE Shane PELON APR N-FPA, FIELD IRRIGATION WORKER-BC Active Last Documented On 3 10:18AM ; [facility] Hypothyroidism Unknown JANAE Lynn PELON ABALONE PROCESSOR-F PA, FIELD IRRIGATION WORKER-BC Active Last Documented On 3 10:18AM ; [facility] Plan of Treatment Referrals To Diagnosis Pain Management [facility] - [address] [place] [id number] - Spinal stenosis, lumbar region with neurogenic claudication Note: Consent for bilateral L4-5 transforaminal epidural.Hold Plavix X7 days prior to procedure Last Documented On 3 3:50PM ; [facility] Pain Management [facility] - [address] [place] [address] - Spinal stenosis, lumbar region with neurogenic claudication Note: consent for right L3-4 , L5-S1 transforaminal epiduralschedule in 6 weeks when done with IV antibiotics Last Documented On 3 10:08AM ; [facility] Neurosurgeon RAHUL MERLOS MD Spinal steno sis, lumbar region with neurogenic claudication Last Documented On 3 3:21PM ; [facility] Education and Decision Aids were provided during visit for: Pill Count: seven TYLENOL #3 Last Documented On 4 1:36PM ; [facility] Pill Count: three TYLENOL #3 Last Documented On 3 9:55AM ; [facility] Pill Count: three TYLENOL #3 -PT STATES SHE HAS #6 AT HOME Last Documented On 3 10:26AM ; [facility] Pill Count: 27 TYLENOL #3 Last Documented On 3 9:19AM ; [facility] Pill Count: 27 TYLENOL #3 Last Documented On 3 8:56AM ; [facility] Pill Count: 13 TYLENOL #3, S TOPPED TAKING ON 07/05/22, PT WAS GIVEN RX FOR HYDROCOODNE FOR AMPUTATION OF RIGHT MIDDLE DIGIT TOE FOR BONE INFECTION Last Documented On 3 11:04AM ; [facility] Pill Count: one Acetaminophe n Codeine: Appropriate Last Documented On 3 1:26PM ; [facility] Pill Count: TYLENOL #3 Last Documented On 2 3:14PM ; [facility] Pill Count: Patient did not bring pain medication to appointment for pill count, per policy. Advised in order to continue to safely prescribe opioids, medication must be brought to each appointment. PT STATES SHE HAS #16 PILLS AT HOME Last Documented On 2 3:14PM ; [facility] Pill Count: 25 TYLENOL #3 Last Documented On 2 2:12PM ; [facility] Pill Count: 0 TYLENOL #3 Last Documented On 2 4:22PM ; [facility] Pill Count: TYLENOL #3 Last Documented On 2 9:55AM ; [facility] Pill Count: Patient did not bring pain medication to appointment for pill count, per policy. Advised in order to continue to safely prescribe opioids, medication must be brought to each appointment. PT STATES SHE ONLY HAD #2 LEFT Last Documented On 2 9:55AM ; [facility] Pill Count: four TYLENOL #3 Last Documented On 2 1:39PM ; [facility] Pill Count: Patient did not bring pain medication to appointment for pill count, per policy. Advised in order to continue to safely prescribe opioids, medication must be brought to each appointment Last Documented On 2 1:39PM ; [facility] Assessments Includes: Assessments for all patient encounters Findings Encounter Date Bulging lumbar disc PAIN MANAGEMENT FOLLOW UP wi th [facility] Last Documented On 4 9:10AM ; [facility] Chronic pain syndrome PAIN MANAGEMENT FO LLOW UP with DENNISE L EUFEMIA ANP-BC 10/07/2023 Last Documented On 4 9:10AM ; [facility] Diabetic polyneuropathy PAIN MANAGEMENT FOLLOW UP with DENNISE L EUFEMIA ANP-BC 10/07/2023 Last Documented On 4 9:10AM ; [facility] use of opiate analgesic PAIN M ANAGEMENT FOLLOW UP with DENNISE L EUFEMIA ANP- 10/07/2023 Last Documented On 4 9:10AM ; [facility] Lumbar spondylosis with radiculopathy PA IN MANAGEMENT FOLLOW UP with DENNISE L EUFEMIA ANP-BC 10/07/2023 Last Documented On 4 9:10AM ; [facility] Lumbar stenosis with neuroge lenin claudication PAIN MANAGEMENT FOLLOW UP with DENNISE L EUFEMIA ANP-BC 10/07/2023 Last Documented On 4 9:10AM ; [facility] Myalgia PAIN MANAGEMENT FOLLOW UP with T GREGORY L EUFEMIA ANP-BC 10/07/2023 Last Documented On 4 9:10AM ; [facility] Bulging lumbar disc PAIN MANAGEMENT FOLLOW UP wi th DENNISE L EUFEMIA ANP- 03/27/2023 Last Documented On 3 10:20AM ; [facility] Chronic pain syndrome PAIN MANAGEMENT FO LLOW UP with DENNISE L EUFEMIA ANP-BC 03/27/2023 Last Documented On 3 10:20AM ; [facility] Diabetic polyneuropathy PAIN MANAGEMENT FOLLOW UP with DENNISE L EUFEMIA ANP-BC 03/27/2023 Last Documented On 3 10:20AM ; [facility] long term care phlebotomist use of opiate analgesic PAIN M ANAGEMENT FOLLOW UP with DENNISE L EUFEMIA ANP-BC 03/27/2023 Last Documented On 3 10:20AM ; [facility] Lumbar spondylosis with radiculopathy PA IN MANAGEMENT FOLLOW UP with DENNISE L EUFEMIA ANP-BC 03/27/2023 Last Documented On 3 10:20AM ; [facility] Lumbar stenosis with neuroge lenin claudication PAIN MANAGEMENT FOLLOW UP with DENNISE L EUFEMAI ANP-BC 03/27/2023 Last Documented On 3 10:20AM ; [facility] Myalgia PAIN MANAGEMENT FOLLOW UP with T GREGORY L EUFEMIA ANP-BC 03/27/2023 Last Documented On 3 10:20AM ; [facility] Bulging lumbar disc PAIN MANAGEMENT FOLLOW UP wi th DENNISE L EUFEMIA ANP-BC 12/30/2022 Last Documented On 3 12:49PM ; [facility] Cervical radiculopathy PAIN MANAGEMENT F OLLOW UP with DENNISE L EUFEMIA ANP-BC 12/30/2022 Last Documented On 3 12:49PM ; [facility] Cervical spondylosis with radiculopathy PAIN MANAGEMENT FOLLOW UP with DENNISE L EUFEMIA ANP-BC 12/30/2022 Last Documented On 3 12:49PM ; [facility] Chronic pain syndrome PAIN MANAGEMENT FO LLOW UP with DENNISE L EUFEMIA ANP-BC 12/30/2022 Last Documented On 3 12:49PM ; [facility] Diabetic polyneuropathy PAIN MANAGEMENT FOLLOW UP with DENNISE L EUFEMIA ANP-BC 12/30/2022 Last Documented On 3 12:49PM ; [facility] use of opiate analgesic PAIN M ANAGEMENT FOLLOW UP with DENNISE L EUFEMIA ANP-BC 12/30/2022 Last Documented On 3 12:49PM ; [facility] Lumbar spondylosis with radiculopathy PA IN MANAGEMENT FOLLOW UP with DENNISE L EUFEMIA ANP-BC 12/30/2022 Last Documented On 3 12:49PM ; [facility] Lumbar stenosis with neuroge lenin claudication PAIN MANAGEMENT FOLLOW UP with DENNISE L EUFEMIA ANP-BC 12/30/2022 Last Documented On 3 12:49PM ; [facility] Myalgia PAIN MANAGEMENT FOLLOW UP with T GREGORY L EUFEMIA ANP-BC 12/30/2022 Last Documented On 3 12:49PM ; [facility] Bulging lumbar disc PAIN MANAGEMENT FOLLOW UP wi th DENNISE L EUFEMIA ANP-BC 10/31/2022 Last Documented On 3 9:56AM ; [facility] Cervical radiculopathy PAIN MANAGEMENT F OLLOW UP with DENNISE L EUFEMIA ANP-BC 10/31/2022 Last Documented On 3 9:56AM ; [facility] Cervical spondylosis with radiculopathy PAIN MANAGEMENT FOLLOW UP with DENNISE L EUFEMIA ANP-BC 10/31/2022 Last Documented On 3 9:56AM ; [facility] Chronic pain syndrome PAIN MANAGEMENT FO LLOW UP with DENNISE L EUFEMIA ANP-BC 10/31/2022 Last Documented On 3 9:56AM ; [facility] Diabetic polyneuropathy PAIN MANAGEMENT FOLLOW UP with DENNISE L EUFEMIA ANP-BC 10/31/2022 Last Documented On 3 9:56AM ; [facility] use of opiate analgesic PAIN M ANAGEMENT FOLLOW UP with DENNISE L EUFEMIA ANP-BC 10/31/2022 Last Documented On 3 9:56AM ; [facility] Lumbar spondylosis with radiculopathy PA IN MANAGEMENT FOLLOW UP with DENNISE L EUFEMIA ANP-BC 10/31/2022 Last Documented On 3 9:56AM ; [facility] Lumbar stenosis with neuroge lenin claudication PAIN MANAGEMENT FOLLOW UP with DENNISE L EUFEMIA ANP-BC 10/31/2022 Last Documented On 3 9:56AM ; [facility] Myalgia PAIN MANAGEMENT FOLLOW UP with T GREGORY L EUFEMIA ANP-BC 10/31/2022 Last Documented On 3 9:56AM ; [facility] Bulging lumbar disc PAIN MANAGEMENT FOLLOW UP wi th DENNISE L EUFEMIA ANP-BC 09/03/2022 Last Documented On 3 5:37PM ; [facility] Cervical radiculopathy PAIN MANAGEMENT F OLLOW UP with DENNISE L EUFEMIA ANP-BC 09/03/2022 Last Documented On 3 5:37PM ; [facility] Cervical spondylosis with radiculopathy PAIN MANAGEMENT FOLLOW UP with DENNISE L EUFEMIA ANP-BC 09/03/2022 Last Documented On 3 5:37PM ; [facility] Chronic pain syndrome PAIN MANAGEMENT FO LLOW UP with DENNISE L EUFEMIA ANP-BC 09/03/2022 Last Documented On 3 5:37PM ; [facility] Diabetic polyneuropathy PAIN MANAGEMENT FOLLOW UP with DENNISE L EUFEMIA ANP-BC 09/03/2022 Last Documented On 3 5:37PM ; [facility] use of opiate analgesic PAIN M ANAGEMENT FOLLOW UP with DENNISE L EUFEMIA ANP-BC 09/03/2022 Last Documented On 3 5:37PM ; [facility] Lumbar spondylosis with radiculopathy PA IN MANAGEMENT FOLLOW UP with DENNISE L EUFEMIA ANP-BC 09/03/2022 Last Documented On 3 5:37PM ; [facility] Lumbar stenosis with neuroge lenin claudication PAIN MANAGEMENT FOLLOW UP with DENNISE L EUFEMIA ANP-BC 09/03/2022 Last Documented On 3 5:37PM ; [facility] Myalgia PAIN MANAGEMENT FOLLOW UP with T GREGORY L EUFEMIA ANP-BC 09/03/2022 Last Documented On 3 5:37PM ; [facility] Bulging lumbar disc PAIN MANAGEMENT FOLLOW UP wi th DENNISE L EUFEMIA ANP-BC 07/26/2022 Last Documented On 3 11:48AM ; [facility] Cervical radiculopathy PAIN MANAGEMENT F OLLOW UP with DENNISE L EUFEMIA ANP-BC 07/26/2022 Last Documented On 3 11:48AM ; [facility] Cervical spondylosis with radiculopathy PAIN MANAGEMENT FOLLOW UP with DENNISE L EUFEMIA ANP-BC 07/26/2022 Last Documented On 3 11:48AM ; [facility] Chronic pain syndrome PAIN MANAGEMENT FO LLOW UP with DENNISE L EUFEMIA ANP-BC 07/26/2022 Last Documented On 3 11:48AM ; [facility] Diabetic polyneuropathy PAIN MANAGEMENT FOLLOW UP with DENNISE L EUFEMIA ANP-BC 07/26/2022 Last Documented On 3 11:48AM ; [facility] long term care phlebotomist use of opiate analgesic PAIN M ANAGEMENT FOLLOW UP with DENNISE L EUFEMIA [facility] 07/26/2022 Last Documented On 3 11:48AM ; [facility] Lumbar spondylosis with radiculopathy PA IN MANAGEMENT FOLLOW UP with DENNISE L EUFEMIA ANP-BC 07/26/2022 Last Documented On 3 11:48AM ; [facility] Lumbar stenosis with neuroge lenin claudication PAIN MANAGEMENT FOLLOW UP with DENNISE L EUFEMIA ANP-BC 07/26/2022 Last Documented On 3 11:48AM ; [facility] Myalgia PAIN MANAGEMENT FOLLOW UP with T GREGORY Vita EUFEMIA [facility]-BC 07/26/2022 Last Documented On 3 11:48AM ; [facility] Bulging lumbar disc PAIN MANAGEMENT FOLL OW UP with JANAE HENNING [facility]- 05/23/2022 Last Documented On 3 1:28PM ; [facility] Cervicalgia PAIN MANAGEMENT FOLLOW UP with Ofelia BIRD ABALONE PROCESSOR-FPBenjamin, [facility]-BC 05/23/2022 Last Documented On 3 1:28PM ; [facility] Chronic pain syndrome PAIN MANAGEMENT FO LLOW UP with JANAE Lynn PELON ABALONE PROCESSOR-FPA, FIELD IRRIGATION WORKER-BC 05/23/2022 Last Documented On 3 1:28PM ; [facility] Diabetic polyneuropathy PAIN MANAGEMENT FOLLOW UP with JANAE Lynn PELON ABALONE PROCESSOR-FPA, FIELD IRRIGATION WORKER-BC 05/23/2022 Last Documented On 3 1:28PM ; [facility] long term care phlebotomist use of opiate analgesic PAIN M ANAGEMENT FOLLOW UP with JANAE Lynn PELON ABALONE PROCESSOR-FPA, FIELD IRRIGATION WORKER-BC 05/23/2022 Last Documented On 3 1:28PM ; [facility] Lumbar spondylosis with radiculopathy PA IN MANAGEMENT FOLLOW UP with JANAE Lynn PELON ABALONE PROCESSOR-FPA, FIELD IRRIGATION WORKER-BC 05/23/2022 Last Documented On 3 1:28PM ; [facility] Lumbar stenosis with neuroge lenin claudication PAIN MANAGEMENT FOLLOW UP with JANAE Lynn PELON ABALONE PROCESSOR-FPA, FIELD IRRIGATION WORKER-BC 05/23/2022 Last Documented On 3 1:28PM ; [facility] Myalgia PAIN MANAGEMENT FOLLOW UP with Ofelia Lynn PELON ABALONE PROCESSOR-FPA, FIELD IRRIGATION WORKER-BC 05/23/2022 Last Documented On 3 1:28PM ; [facility] Bulging lumbar disc PAIN MANAGEMENT FOLLOW UP wi th DENNISE L EUFEMIA ANP-BC 03/14/2022 Last Documented On 2 3:37PM ; [facility] Chronic pain syndrome PAIN MANAGEMENT FO LLOW UP with DENNISE L EUFEMIA ANP-BC 03/14/2022 Last Documented On 2 3:37PM ; [facility] Diabetic polyneuropathy PAIN MANAGEMENT FOLLOW UP with DENNISE L EUFEMIA ANP-BC 03/14/2022 Last Documented On 2 3:37PM ; [facility] use of opiate analgesic PAIN M ANAGEMENT FOLLOW UP with DENNISE L EUFEMIA ANP-BC 03/14/2022 Last Documented On 2 3:37PM ; [facility] Lumbar spondylosis with radiculopathy PA IN MANAGEMENT FOLLOW UP with DENNISE L EUFEMIA ANP-BC 03/14/2022 Last Documented On 2 3:37PM ; [facility] Lumbar stenosis with neuroge lenin claudication PAIN MANAGEMENT FOLLOW UP with DENNISE L EUFEMIA ANP-BC 03/14/2022 Last Documented On 2 3:37PM ; [facility] Myalgia PAIN MANAGEMENT FOLLOW UP with T GREGORY L EUFEMIA ANP-BC 03/14/2022 Last Documented On 2 3:37PM ; [facility] Bulging lumbar disc PAIN MANAGEMENT FOLLOW UP wi th DENNISE L EUFEMIA ANP-BC 12/24/2021 Last Documented On 2 3:03PM ; [facility] Chronic pain syndrome PAIN MANAGEMENT FO LLOW UP with DENNISE L EUFEMIA ANP-BC 12/24/2021 Last Documented On 2 3:03PM ; [facility] Diabetic polyneuropathy PAIN MANAGEMENT FOLLOW UP with DENNISE L EUFEMIA ANP-BC 12/24/2021 Last Documented On 2 3:03PM ; [facility] long term care phlebotomist use of opiate analgesic PAIN M ANAGEMENT FOLLOW UP with DENNISE L EUFEMIA ANP-BC 12/24/2021 Last Documented On 2 3:03PM ; [facility] Lumbar spondylosis with radiculopathy PA IN MANAGEMENT FOLLOW UP with DENNISE L EUFEMIA ANP-BC 12/24/2021 Last Documented On 2 3:03PM ; [facility] Lumbar stenosis with neuroge lenin claudication PAIN MANAGEMENT FOLLOW UP with DENNISE L EUFEMIA ANP-BC 12/24/2021 Last Documented On 2 3:03PM ; [facility] Myalgia PAIN MANAGEMENT FOLLOW UP with T GREGORY L EUFEMIA ANP-BC 12/24/2021 Last Documented On 2 3:03PM ; [facility] Chronic pain syndrome PAIN MANAGEMENT FO LLOW UP with DENNISE L EUFEMIA ANP-BC 11/05/2021 Last Documented On 2 5:36PM ; [facility] Diabetic polyneuropathy PAIN MANAGEMENT FOLLOW UP with DENNISE L EUFEMIA ANP-BC 11/05/2021 Last Documented On 2 5:36PM ; [facility] DORSALGIA PAIN MANAGEMENT FOLLOW UP with T GREGORY L EUFEMIA ANPBC 11/05/2021 Last Documented On 2 5:36PM ; [facility] use of opiate analgesic PAIN M ANAGEMENT FOLLOW UP with DENNISE L EUFEMIA [facility] 11/05/2021 Last Documented On 2 5:36PM ; [facility] Lumbar spondylosis with radiculopathy PA IN MANAGEMENT FOLLOW UP [facility] Last Documented On 2 5:36PM ; [facility] Myalgia PAIN MANAGEMENT FOLLOW UP with T GREGORY L EUFEMIA ANPBC 11/05/2021 Last Documented On 2 5:36PM ; [facility] Chronic pain syndrome PAIN MANAGEMENT FO LLOW UP [facility] 09/20/2021 Last Documented On 2 11:46AM ; [facility] Diabetic polyneuropathy PAIN MANAGEMENT FOLLOW UP with [facility] L [facility] 09/20/2021 Last Documented On 2 11:46AM ; [facility] DORSALGIA PAIN MANAGEMENT FOLLOW UP with T GREGORY L EUFEMIA [facility] 09/20/2021 Last Documented On 2 11:46AM ; [facility] use of opiate analgesic PAIN M ANAGEMENT FOLLOW UP with DENNISE L EUFEMIA [facility] 09/20/2021 Last Documented On 2 11:46AM ; [facility] Lumbar spondylosis without m yelopathy or radiculopathy PAIN MANAGEMENT FOLLOW UP with DENNISE L EUFEMIA ANP- 09/20/2021 Last Documented On 2 11:46AM ; [facility] Myalgia PAIN MANAGEMENT FOLLOW UP with T GREGORY L EUFEMIA ANP-BC 09/20/2021 Last Documented On 2 11:46AM ; [facility] Chronic pain syndrome PAIN MANAGEMENT NE W CONSULT with DENNISE L EUFEMIA [facility] 08/21/2021 Last Documented On 2 4:35PM ; [facility] Diabetic polyneuropathy PAIN MANAGEMENT NEW CONSULT with DENNISE ANTHONY [facility] 08/21/2021 Last Documented On 2 4:35PM ; [facility] DORSALGIA PAIN MANAGEMENT NEW CONSULT with DENNISE ANTHONY [facility] 08/21/2021 Last Documented On 2 4:35PM ; [facility] long term care phlebotomist use of opiate analgesic PAIN M ANAGEMENT NEW CONSULT with DENNISE ANTHONY [facility] 08/21/2021 Last Documented On 2 4:35PM ; [facility] Myalgia PAIN MANAGEMENT NEW CONSULT with DENNISECHER ANTHONY [facility] 08/21/2021 Last Documented On 2 4:35PM ; [facility] Instructions Includes: Instructions for all patient encounters Education and Decision Aids were provided during visit for: Pill Count: seven TYLENOL #3 Last Documented On 4 1:36PM ; [facility] Pill Count: three TYLENOL #3 Last Documented On 3 9:55AM ; [facility] Pill Count: three TYLENOL #3 -PT STATES SHE HAS #6 AT HOME Last Documented On 3 10:26AM ; [facility] Pill Count: 27 TYLENOL #3 Last Documented On 3 9:19AM ; [facility] Pill Count: 27 TYLENOL #3 Last Documented On 3 8:56AM ; [facility] Pill Count: 13 TYLENOL #3, S TOPPED TAKING ON 07/05/22, PT WAS GIVEN RX FOR HYDROCOODNE FOR AMPUTATION OF RIGHT MIDDLE DIGIT TOE FOR BONE INFECTION Last Documented On 3 11:04AM ; [facility] Pill Count: one Acetaminophe n Codeine: Appropriate Last Documented On 3 1:26PM ; [facility] Pill Count: TYLENOL #3 Last Documented On 2 3:14PM ; [facility] Pill Count: Patient did not bring pain medication to appointment for pill count, per policy. Advised in order to continue to safely prescribe opioids, medication must be brought to each appointment. PT STATES SHE HAS #16 PILLS AT HOME Last Documented On 2 3:14PM ; [facility] Pill Count: 25 TYLENOL #3 Last Documented On 2 2:12PM ; [facility] Pill Count: 0 TYLENOL #3 Last Documented On 2 4:22PM ; [facility] Pill Count: TYLENOL #3 Last Documented On 2 9:55AM ; [facility] Pill Count: Patient did not bring pain medication to appointment for pill count, per policy. Advised in order to continue to safely prescribe opioids, medication must be brought to each appointment. PT STATES SHE ONLY HAD #2 LEFT Last Documented On 2 9:55AM ; [facility] Pill Count: four TYLENOL #3 Last Documented On 2 1:39PM ; [facility] Pill Count: Patient did not bring pain medication to appointment for pill count, per policy. Advised in order to continue to safely prescribe opioids, medication must be brought to each appointment Last Documented On 2 1:39PM ; [facility] Medical Equipment - Implanted Devices Includes: Current and historical Devices No Medical Equipment Recorded Medications Includes: Current and historical Medications Current Medications (continue as prescribed) Linzess 145 MCG Oral Capsule 11/03/2023 Provider: ISIDORO SCHMIDT Diagnosis: Constipation, un specified TAKE 1 CAPSULE BY MOUTH DAILY Last Documented On 4 1:40PM By JANAE CHAUDHRY ; [facility] tiZANidine HCl 2 MG Oral Tablet 10/24/2023 Provider: ISIDORO PEPPER Diagnosis: TAKE 1 TABLET BY MOUTH 2 TO 3 TIMES PER DAY NEEDED Last Documented On 4 10:26AM By JANAE CHAUDHRY ; [facility] Acetaminophen-Codeine 300-30 MG Oral Tablet 10/08/2023 Provider: DENNISE GRIMES Diagnosis: Spinal stenosis, lumbar region with neurogenic claudication 1 po bid prn/ max 2 per day Last Documented On 4 9:26AM By DENNISE GRIMES ; [facility] Ozempic (0.25 or 0.5 MG/DOSE ) 2 MG/3ML Subcutaneous Solution Pen-injector 10/02/2023 Provider: Diagnosis: Last Documented On 10/07/2023 1:34PM By Laura RIVERA ; [facility] Ubrelvy 100 MG Oral Tablet 09/18/2023 Provider: Diagnosis: Last Documented On 10/07/2023 1:35PM By Laura RIVERA ; [facility] Qulipta 60 MG Oral Tablet 09/11/2023 Provider: Diagnosis: Last Documented On 10/07/2023 1:34PM By Laura RIVERA ; [facility] tiZANidine HCl 2 MG Oral Tablet 08/13/2023 Provider: JANAE CALIBenjamin [facility] Diagnosis: TAKE 1 TABLET BY MOUTH 2 TO 3 TIMES PER DAY NEEDED Last Documented On 4 12:03PM By JANAE BIRD [facility] ; [facility] Gentamicin Sulfate 0.1% External Ointment 07/11/2023 Provider: JW MARIN DPM Diagnosis: Last Documented On 10/07/2023 1:33PM By Laura RIVERA ; [facility] Gabapentin 600 MG Oral Tablet 06/23/2023 Provider: DENNISE HERNANDEZ 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 TAKE 1 TABLET BY MOUTH THREE TIMES DAILY Last Documented On 4 8:40AM [facility] DULoxetine HCl 60 MG Oral Capsule Delayed Release Particles 06/23/2023 Provider: DENNISE Barnes Diagnosis: Chronic pain syn drome TAKE 1 CAPSULE BY MOUTH DAILY Last Documented On 4 8:40AM [facility] ; [facility] Santyl 250 UNIT/GM External Ointment 06/06/2023 Prov ider: JW MARIN DPM Diagnosis: Last Documented On 10/07/2023 1:34PM By Laura RIVERA ; [facility] Bumetanide 1 MG Oral Tablet 09/13/2022 Provider: Diagnosis: Last Documented On 3 10:28AM By Laura RIVERA ; [facility] Kerendia 20 MG Oral Tablet 03/03/2022 Provider: Diagnosis: Last Documented On 03/14/2022 3:11PM By Laura RIVERA ; [facility] Brilinta 90 MG Oral Tablet 02/19/2022 Provider: Diagnosis: Last Documented On 03/14/2022 3:12PM By Laura RIVERA ; [facility] Carvedilol 6.25 MG Oral Tablet 01/26/2022 Provider: Diagnosis: Last Documented On 03/14/2022 3:06PM By Laura RIVERA ; [facility] Entresto 24-26 MG Oral Tablet 01/25/2022 Provider: Diagnosis: Last Documented On 03/14/2022 3:13PM By Laura RIVERA ; [facility] Jardiance 25 MG Oral Tablet 09/03/2021 Provider: Diagnosis: Last Documented On 09/20/2021 9:45AM By Laura RIVERA ; [facility] Aspirin 81 MG Oral Capsule 08/21/2021 Provider: Diagnosis: Last Documented On 08/21/2021 1:34PM By Laura RIVERA ; [facility] Nitroglycerin 0.4 MG Sublingual Tablet Sublingual 09/2021 Provider: Diagnosis: Last Documented On 08/21/2021 1:36PM By Laura RIVERA ; [facility] metFORMIN HCl 1000 MG Oral Tablet 08/20/2021 Provide r: CAMPOS WHEELER MD Diagnosis: Last Documented On 08/21/2021 1:30PM By Laura RIVERA ; [facility] Levothyroxine Sodium 100 MCG Oral Tablet 08/20/2021 Provider: CAMPOS WHEELER MD Diagnosis: Last Documented On 08/21/2021 1:30PM By Laura RIVERA ; [facility] Topiramate 25 MG Oral Tablet 2021 Provider: Diagnosis: Last Documented On 08/21/2021 1:31PM By Laura RIVERA ; [facility] Atorvastatin Calcium 40 MG Oral Tablet 08/09/2021 Pr ovider: CAMPOS WHEELER MD Diagnosis: Last Documented On 08/21/2021 1:31PM By Laura RIVERA ; [facility] Past Medications on file Linzess 145 MCG Oral Capsule 10/03/2023 - 10/07/2023 Provider: DENNISE GRIMES Diagnosis: Last Documented On 10/07/2023 1:35PM By Laura RIVERA ; [facility] Linzess 145 MCG Oral Capsule 08/06/2023 - 11/03/2023 Provider: DENNISE GRIMES Diagnosis: Constipation, unspecified TAKE 1 CAPSULE BY MOUTH DAILY Last Documented On 4 1:25PM By JANAE BIRD [facility] ; [facility] Acetaminophen-Codeine 300-30 MG Oral Tablet 07/21/2023 - 10/07/2023 Provider: DENNISE GRIMES Diagnosis: Spinal stenosis, lumbar region with neurogenic claudication 1 po bid prn/ max 2 per day Last Documented On 4 9:09AM By DENNISE GRIMES ; [facility] tiZANidine HCl 2 MG Oral Tablet 07/21/2023 - 08/13/2023 Provider: DENNISE GRIMES Diagnosis: 1 po 2-3 times per day prn Last Documented On 4 11:48AM By JANAE BIRD [facility] ; [facility] Acetaminophen-Codeine 300-30 MG Oral Tablet 06/12/2023 - 07/18/2023 Provider: DENNISE GRIMES Diagnosis: Spinal stenosis, lumbar region with neurogenic claudication 1 po bid prn/ max 2 per day Last Documented On 4 10:00AM By DENNISE HERNANDEZ ; [facility] Gabapentin 600 MG Oral Tablet 05/22/2023 - 06/23/2023 Provider: DENNISE GRIMES 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 TAKE 1 TABLET BY MOUTH THREE TIMES DAILY Last Documented On 4 8:32AM By DENNISE GRIMES ; [facility] Linzess 145 MCG Oral Capsule 05/15/2023 - 08/06/2023 Provider: DENNISE GRIMES Diagnosis: Constipation, unspecified TAKE 1 CAPSULE BY MOUTH DAILY Last Documented On 4 4:47PM By DENNISE GRIMES ; [facility] Gabapentin 600 MG Oral Tablet 04/21/2023 - 05/22/2023 Provider: DENNISE GRIMES 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 TAKE 1 TABLET BY MOUTH THREE TIMES DAILY Last Documented On 4 1:32PM By DENNISE GRIMES ; [facility] Linzess 145 MCG Oral Capsule 04/13/2023 - 05/15/2023 Provider: DENNISE GRIMES Diagnosis: Constipation, unspecified TAKE 1 CAPSULE BY MOUTH DAILY Last Documented On 3 2:32PM By DENNISE GRIMES ; [facility] Acetaminophen-Codeine 300-30 MG Oral Tablet 03/27/2023 - 06/12/2023 Provider: DENNISE GRIMES Diagnosis: Spinal stenosis, lumbar region with neurogenic claudication 1 po bid prn/ max 2 per day Last Documented On 4 4:06PM By DENNISE GRIMES ; [facility] DULoxetine HCl 60 MG Oral Capsule Delayed Release Particles 03/25/2023 - 06/23/2023 Provider: DENNISE GRIMES Diagnosis: Chronic pain syn drome TAKE 1 CAPSULE BY MOUTH DAILY Last Documented On 4 8:32AM By DENNISE GRIMES ; [facility] Gabapentin 600 MG Oral Tablet 03/25/2023 - 04/21/2023 Provider: DENNISE GRIMES 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 TAKE 1 TABLET BY MOUTH THREE TIMES DAILY Last Documented On 3 12:22PM By DENNISE GRIMES ; [facility] Linzess 145 MCG Oral Capsule 03/10/2023 - 04/13/2023 Provider: DENNISE GRIMES Diagnosis: Constipation, unspecified TAKE 1 CAPSULE BY MOUTH DAILY Last Documented On 3 6:43AM By DENNISE GRIMES ; [facility] Gabapentin 600 MG Oral Tablet 02/24/2023 - 03/25/2023 Provider: JANAE BIRD [employer], [id number] 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 TAKE 1 TABLET BY MOUTH THREE TIMES DAILY Last Documented On 3 4:13PM By DENNISE GRIMES ; [facility] Gabapentin 600 MG Oral Tablet 01/27/2023 - 02/24/2023 Provider: DENNISE GRIMES 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 TAKE 1 TABLET BY MOUTH THREE TIMES DAILY Last Documented On 3 11:53AM By JANAE NEAL-BC ; [facility] Acetaminophen-Codeine 300-30 MG Oral Tablet 01/13/2023 - 03/27/2023 Provider: DENNISE GRIMES Diagnosis: Spondylosis w/o myelopathy or radiculopathy, lumbar region 1 po bid prn/ max 2 per day Last Documented On 3 10:12AM By DENNISE GRIMES ; [facility] tiZANidine HCl 2 MG Oral Tablet 01/13/2023 - 07/21/2023 Provider: DENNISE GRIMES Diagnosis: 1 po 2-3 times per day prn Last Documented On 4 10:03AM By DENNISE GRIMES ; [facility] DULoxetine HCl 60 MG Oral Capsule Delayed Release Particles 12/30/2022 - 03/25/2023 Provider: DENNISE GRIMES Diagnosis: Chronic pain syn drome 1 capsule daily Last Documented On 3 4:13PM By DENNISE GRIMES ; [facility] DULoxetine HCl 30 MG Oral Capsule Delayed Release Particles 12/27/2022 - 03/27/2023 Provider: DENNISE GRIMES Diagnosis: Chronic pain syn drome TAKE 1 CAPSULE BY MOUTH AT BEDTIME Last Documented On 3 10:04AM By DENNISE GRIMES ; [facility] Gabapentin 600 MG Oral Tablet 12/27/2022 - 01/27/2023 Provider: DENNISE GRIMES Diagnosis: h diabetes lary litus with diabetic polyneuropathy TAKE 1 TABLET BY MOUTH THREE TIMES DAILY Last Documented On 3 10:34AM By DENNISE GRIMES ; [facility] Acetaminophen-Codeine 300-30 MG Oral Tablet 12/02/2022 - 01/13/2023 Provider: DENNISE GRIMES Diagnosis: Spondylosis w/o myelopathy or radiculopathy, lumbar region 1 po bid prn/ max 2 per day Last Documented On 3 3:44PM By DENNISE GRIMES ; [facility] DULoxetine HCl 30 MG Oral Capsule Delayed Release Particles 11/25/2022 - 12/27/2022 Provider: DENNISE GRIMES Diagnosis: Chronic pain syn drome TAKE 1 CAPSULE BY MOUTH AT BEDTIME Last Documented On 3 10:26PM By DENNISE GRIMES ; [facility] Linzess 145 MCG Oral Capsule 11/20/2022 - 03/10/2023 Provider: DENNISE GRIMES Diagnosis: Constipation, unspecified TAKE 1 CAPSULE BY MOUTH DAILY Last Documented On 3 3:57PM By DENNISE GRIMES ; [facility] DULoxetine HCl 30 MG Oral Capsule Delayed Release Particles 10/31/2022 - 11/25/2022 Provider: DENNISE GRIMES Diagnosis: Chronic pain syn drome One tablet at bed time Last Documented On 3 1:45PM By DENNISE GRIMES ; [facility] Linzess 145 MCG Oral Capsule 10/21/2022 - 11/20/2022 Provider: DENNISE GRIMES Diagnosis: Constipation, unspecified TAKE 1 CAPSULE BY MOUTH DAILY Last Documented On 3 8:44AM By DENNISE GRIMES ; [facility] Acetaminophen-Codeine #3 300-30 MG Oral Tablet 10/08/2022 - 12/30/2022 Provider: DENNISE GRIMES Diagnosis: Other spondylosi s with radiculopathy, lumbar region 1 po bid prn, max 2 per day Last Documented On 3 10:26AM By Laura RIVERA ; [facility] Gabapentin 600 MG Oral Tablet 09/25/2022 - 12/27/2022 Provider: DENNISE GRIMES 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 TAKE 1 TABLET BY MOUTH THREE TIMES DAILY Last Documented On 3 10:31PM By DENNISE GRIMES ; [facility] cefTRIAXone Sodium 2 GM Intr avenous Solution Reconstituted 09/03/2022 - 12/30/2022 Provider: Diagnosis: Last Documented On 3 10:28AM By Laura RIVERA ; [facility] Gabapentin 600 MG Oral Tablet 08/23/2022 - 09/25/2022 Provider: DENNISE GRIMES 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 TAKE 1 TABLET BY MOUTH THREE TIMES DAILY Last Documented On 3 12:49PM By DENNISE GRIMES ; [facility] Linzess 145 MCG Oral Capsule 08/21/2022 - 10/21/2022 Provider: DENNISE GRIMES Diagnosis: Constipation, unspecified TAKE 1 CAPSULE BY MOUTH DAILY Last Documented On 3 1:23PM By DENNISE GRIMES ; [facility] Acetaminophen-Codeine #3 300-30 MG Oral Tablet 08/13/2022 - 10/07/2022 Provider: DENNISE GRIMES Diagnosis: Other spondylosi s with radiculopathy, lumbar region 1 po bid prn, max 2 per day Last Documented On 3 5:42PM By DENNISE GRIMES ; [facility] Gabapentin 600 MG Oral Tablet 07/25/2022 - 08/23/2022 Provider: DENNISE GRIMES 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 TAKE 1 TABLET BY MOUTH THREE TIMES DAILY Last Documented On 3 3:59PM By DENNISE GRIMES ; [facility] HYDROcodone-Acetaminophen 5-325 MG Oral Tablet 0 07/05/2022 - 10/31/2022 Provider: Diagnosis: Last Documented On 3 9:31AM By DENNISE GRIMES ; [facility] Linzess 145 MCG Oral Capsule 06/11/2022 - 08/21/2022 Provider: ISIDORO PEPPER Diagnosis: Constipation, unspecified TAKE 1 CAPSULE BY MOUTH DAILY Last Documented On 3 9:26AM By DENNISE GRIMES ; [facility] Acetaminophen-Codeine #3 300-30 MG Oral Tablet 05/23/2022 - 08/13/2022 Provider: ISIDORO PEPPER Diagnosis: Other spondylosi s with radiculopathy, lumbar region 1 po bid prn Last Documented On 3 4:03PM By DENNISE GRIMES ; [facility] Gabapentin 600 MG Oral Tablet 05/23/2022 - 07/25/2022 Provider: ISIDORO PEPPER 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 TAKE 1 TABLET BY MOUTH THREE TIMES DAILY Last Documented On 3 8:41AM By DENNISE GRIMES ; [facility] Bumetanide 1 MG Oral Tablet 05/23/2022 - 06/22/2022 Pr ovider: Diagnosis: Last Documented On 3 10:20AM By JANAE CHAUDHRY ; [facility] Gabapentin 600 MG Oral Tablet 04/30/2022 - 05/23/2022 Provider: DENNISE GRIMES 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 TAKE 1 TABLET BY MOUTH THREE TIMES DAILY Last Documented On 3 10:42AM By JANAE CHAUDHRY ; [facility] Acetaminophen-Codeine #3 300 -30 MG Oral Tablet 03/26/2022 - 05/23/2022 Provider: DENNISE GRIMES Diagnosis: 1 po bid prn Last Documented On 3 10:42AM By JANAE CHAUDHRY ; [facility] Linzess 145 MCG Oral Capsule 03/19/2022 - 06/11/2022 Provider: DENNISE GRIMES Diagnosis: Constipation, unspecified TAKE 1 CAPSULE BY MOUTH DAILY Last Documented On 3 2:03PM By JANAE BIRD [facility] ; [facility] Dexcom G6 Sensor Miscellaneous 03/09/2022 - 12/30/2022 Provider: Diagnosis: Last Documented On 3 10:29AM By Laura RIVERA ; [facility] Bumetanide 1 MG Oral Tablet 03/07/2022 - 05/23/2022 Pr ovider: Diagnosis: Last Documented On 3 10:20AM By JANAE BIRD [facility] ; [facility] Acetaminophen-Codeine #3 300 -30 MG Oral Tablet 02/22/2022 - 03/25/2022 Provider: DENNISE GRIMES Diagnosis: One tablet twice a day Last Documented On 2 10:39AM By DENNISE GRIMES ; [facility] Linzess 145 MCG Oral Capsule 02/19/2022 - 03/19/2022 Provider: DENNISE GRIMES Diagnosis: Constipation, unspecified TAKE 1 CAPSULE BY MOUTH DAILY Last Documented On 2 12:10PM By DENNISE GRIMES ; [facility] Pantoprazole Sodium 40 MG Or al Tablet Delayed Release 02/15/2022 - 12/30/2022 Provider: CAMPOS WHEELER MD Diagnosis: Last Documented On 3 10:29AM By Laura RIVERA ; [facility] Acetaminophen-Codeine #3 300 -30 MG Oral Tablet 01/22/2022 - 02/21/2022 Provider: DENNISE GRIMES Diagnosis: One tablet twice a day Last Documented On 2 8:24AM By DENNISE GRIMES ; [facility] Gabapentin 600 MG Oral Tablet 01/10/2022 - 04/30/2022 Provider: DENNISE GRIMES 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 TAKE 1 TABLET BY MOUTH THREE TIMES DAILY Last Documented On 2 12:44PM By DENNISE GRIMES ; [facility] Acetaminophen-Codeine #3 300-30 MG Oral Tablet 12/17/2021 - 05/23/2022 Provider: DENNISE GRIMES Diagnosis: Spondylosis w/o myelopathy or radiculopathy, lumbar region 1 po qhs prn Last Documented On 3 10:17AM By JANAE BIRD [facility] ; [facility] Linzess 145 MCG Oral Capsule 11/12/2021 - 02/19/2022 Provider: DENNISE GRIMES Diagnosis: Constipation, unspecified TAKE 1 CAPSULE BY MOUTH DAILY Last Documented On 2 5:09PM By DENNISE GRIMES ; [facility] Acetaminophen-Codeine #3 300-30 MG Oral Tablet 11/05/2021 - 12/17/2021 Provider: DENNISE GRIMES Diagnosis: Spondylosis w/o myelopathy or radiculopathy, lumbar region 1 po qhs prn Last Documented On 2 11:59AM By DENNISE GRIMES ; [facility] Gabapentin 600 MG Oral Tablet 10/17/2021 - 01/10/2022 Provider: DENNISE GRIMES 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 TAKE 1 TABLET BY MOUTH THREE TIMES DAILY Last Documented On 2 3:24PM By DENNISE GRIMES ; [facility] Linzess 145 MCG Oral Capsule 10/17/2021 - 11/12/2021 Provider: DENNISE GRIMES Diagnosis: Constipation, unspecified TAKE 1 CAPSULE BY MOUTH DAILY Last Documented On 2 8:59AM By DENNISE GRIMES ; [facility] Acetaminophen-Codeine #3 300 -30 MG Oral Tablet 10/12/2021 - 11/05/2021 Provider: DENNISE GRIMES Diagnosis: 1 po qhs prn Last Documented On 2 5:34PM By DENNISE GRIMES ; [facility] Gabapentin 600 MG Oral Tablet 09/20/2021 - 12/24/2021 Provider: DENNISE GRIMES 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 One tablet three times a day Last Documented On 12/24/2021 2:06PM By Laura RIVERA ; [facility] Linzess 145 MCG Oral Capsule 09/20/2021 - 10/17/2021 Provider: DENNISE GRIMES Diagnosis: Constipation, unspecified 1 capsule daily Last Documented On 2 1:42PM By DENNISE GRIMES ; [facility] Acetaminophen-Codeine #3 300 -30 MG Oral Tablet 09/20/2021 - 10/11/2021 Provider: DENNISE GRIMES Diagnosis: 1 po qhs prn Last Documented On 2 8:22AM By DENNISE GRIMES ; [facility] Frksjwbtxg-SJTZ-Ucovyytg 50- 325-40 MG Oral Tablet 09/13/2021 - 03/14/2022 Provider: CAMPOS WHEELER MD Diagnosis: 1 TABLET PO BID PRN Last Documented On 03/14/2022 3:07PM By Laura RIVERA ; [facility] Acetaminophen-Codeine #3 300 -30 MG Oral Tablet 09/04/2021 - 09/20/2021 Provider: DENNISE GRIMES Diagnosis: 1 po qhs prn Last Documented On 2 10:07AM By DENNISE GRIMES ; [facility] Ozempic (0.25 or 0.5 MG/DOSE ) 2 MG/1.5ML Subcutaneous Solution Pen-injector 09/03/2021 - 03/14/2022 Provider: Diagnosis: Last Documented On 03/14/2022 3:07PM By Laura RIVERA ; [facility] tiZANidine HCl 2 MG Oral Tablet 08/20/2021 - Provider: Diagnosis: Last Documented On 3 3:45PM By DENNISE GRIMES ; [facility] Gabapentin 300 MG Oral Capsule 08/20/2021 - 12/24/2021 Provider: CAMPOS WHEELER MD Diagnosis: Last Documented On 12/24/2021 2:07PM By Laura RIVERA ; [facility] Vascepa 1 GM Oral Capsule 08/20/2021 - 10/07/2023 Prov ider: Diagnosis: Last Documented On 10/07/2023 1:35PM By Laura RIVERA ; [facility] Nortriptyline HCl 50 MG Oral Capsule 08/01/2021 - 02/17 Provider: CAMPOS WHEELER MD Diagnosis: Last Documented On 03/14/2022 3:08PM By Laura RIVERA ; [facility] Clopidogrel Bisulfate 75 MG Oral Tablet 07/26/2021 - 1 Provider: Diagnosis: Last Documented On 03/14/2022 3:09PM By Laura RIVERA ; [facility] hydroCHLOROthiazide 25 MG Oral Tablet 07/26/2021 - Provider: Diagnosis: Last Documented On 03/14/2022 3:10PM By Laura RIVERA ; [facility] Acetaminophen-Codeine #3 300 -30 MG Oral Tablet 07/26/2021 - 01/22/2022 Provider: CAMPOS WHEELER MD Diagnosis: Last Documented On 1:47PM By DENNISE ANTHONY [facility] ; [facility] Metoprolol Succinate ER 100 MG Oral Tablet Extended Release 24 Hour 06/21/2021 - 03/14/2022 Provider: Diagnosis: Last Documented On 03/14/2022 3:09PM By Laura RIVERA ; [facility] Admelog 100 UNIT/ML Subcutan eous Solution 05/23/2021 - 03/14/2022 Provider: CAMPOS WHEELER MD Diagnosis: Last Documented On 03/14/2022 3:09PM By Laura RIVERA ; [facility] Lisinopril 10 MG Oral Tablet 03/27/2021 - 03/14/2022 Kirti stringerder: Diagnosis: Last Documented On 03/14/2022 3:09PM By Laura RIVERA ; [facility] Medications Administered Includes: Administered Medications in patient's chart No Administered Medications Recorded Vital Signs Includes: Vital Signs from 06/19/2023 through 06/19/2024 Vital Name 10/07/2023 01:28P Blood Pressure Sitting R 90/60 Pulse Rate-Sitting (bpm) 90 Temp-Temporal 97.3 Height (in) 65 Weight (lb) 126 Body Mass Index 21 Body Surface Area 1.6 Pain Level 7 Oxygen Saturation (%) 98 Last Documented: On 10/07/2023 1:32PM ; [facility] Results Includes: Results from 06/19/2023 through 06/19/2024 DRUG MONITORING, PANEL 6 WITH CONFIRMATI ON, URINE [employer] Ordered by DENNISE GRIMES on Collected: 10/07/2023 Reported: 10/09/19 24 23:08 Last Documented On 4 11:38AM ; [facility] Reviewed by DENNISE GRIMES on 10/28/2023; All test results are final unless otherwise noted. Amphetamines NEGATIVE ng/mL (<500) None Last Documented On 4 11:39PM ; [facility] Barbiturates NEGATIVE ng/mL (<300) None Last Documented On 4 11:39PM ; [facility] Benzodiazepines NEGATIVE ng/mL (<100) None Last Documented On 4 11:39PM ; [facility] Marijuana Metabolite NEGATIVE ng/mL (<20) None Last Documented On 4 11:39PM ; [facility] Cocaine Metabolite NEGATIVE ng/mL (<150) None Last Documented On 4 11:39PM ; [facility] Methadone Metabolite NEGATIVE ng/mL (<100) None Last Documented On 4 11:39PM ; [facility] Opiates POSITIVE ng/mL (<100) A (Abnormal) Last Documented On 4 11:39PM ; [facility] Codeine 2280 ng/mL (<50) H (High) Last Documented On 4 11:39PM ; [facility] medMATCH Codeine CONSISTENT None Last Documented On 4 11:39PM ; [facility] Morphine 156 ng/mL (<50) H (High) Last Documented On 4 11:39PM ; [facility] medMATCH Morphine CONSISTENT None Last Documented On 4 11:39PM ; [facility] Hydrocodone NEGATIVE ng/mL (<50) None Last Documented On 4 11:39PM ; [facility] Hydromorphone NEGATIVE ng/mL (<50) None Last Documented On 4 11:39PM ; [facility] Oxycodone POSITIVE ng/mL (<100) A (Abnormal) Last Documented On 4 11:39PM ; [facility] Oxycodone NEGATIVE ng/mL (<50) None Last Documented On 4 11:39PM ; [facility] Oxymorphone 100 ng/mL (<50) H (High) Last Documented On 4 11:39PM ; [facility] medMATCH Oxymorphone INCONSISTENT A (Abnormal) Last Documented On 4 11:39PM ; [facility] Phencyclidine NEGATIVE ng/mL (<25) None Last Documented On 4 11:39PM ; [facility] Alcohol Metabolites NEGATIVE ng/mL (<500) None Last Documented On 4 11:39PM ; [facility] 6 Acetylmorphine NEGATIVE ng/mL (<10) None Last Documented On 4 11:39PM ; [facility] pH 5.4 (4.5-9.0) None Last Documented On 4 11:39PM ; [facility] Creatinine 87.0 mg/dL (> or = 20.0) None Last Documented On 4 11:39PM ; [facility] Oxidant NEGATIVE mcg/mL (<200) None Last Documented On 4 11:39PM ; [facility] Norhydrocodone 52 ng/mL (<50) H (High) Last Documented On 4 11:39PM ; [facility] Noroxycodone 185 ng/mL (<50) H (High) Last Documented On 4 11:39PM ; [facility] medMATCH Norhydrocodone INCONSISTENT A (Abnormal) Last Documented On 11:39PM ; [facility] medMATCH Noroxycodone INCONSISTENT A (Abnormal) Last Documented On 11:39PM ; [facility] Opiates Comments See Note None Last Documented On 10/09/2023 11:39PM ; [facility] Note: See Opiates Notes, LDT Notes Oxycodone Comments See Note None Last Documented On 10/09/2023 11:39PM ; [facility] Note: See Oxycodone Notes, LDT Notes DRUG MONITORING TEMPLATE [employer] Ordered by DENNISE GRIMES on Collected: 10/07/2023 Reported: 10/09/19 24 23:08 Last Documented On 11:38AM ; [facility] Reviewed by DENNISE GRIMES on 10/28/2023; All test results are final unless otherwise noted. Notes and Comments See Note None Last Documented On 10/09/2023 11:39PM ; [facility] Note: This drug testing is for medical [...] analytical performance characteristics have been determined by [employer]. It has not been cleared or approved by the FDA. This assay has been validated pursuant to the CLIA regulations and is used for clinical purposes. medMATCH(R) enables providers to identify if drug useis consistent or inconsistent with a correspondingprescribed medication(s) list. Healthcare Providers needing Interpretation assistance, please contact us at [phone] ( ) M-F, 8am to 10pm EST PRESCRIBED DRUGS, medMATCH(R) [employer] Ordered by DENNISE GRIMES on Collected: 10/07/2023 Reported: 10/09/19 24 23:08 Last Documented On 4 11:38AM ; [facility] Reviewed by DENNISE GRIMES on 10/28/2023; All test results are final unless otherwise noted. Prescribed Drug 6 Codeine None Last Documented On 4 11:39PM ; [facility] medMATCH Summary See Note None Last Documented On 10/09/2023 11:39PM ; [facility] Note: Prescribed Prescribed Not Prescribed Consistent Inconsistent Inconsistent Codeine Norhydrocodone Noroxycodone Oxymorphone Reported Physicians [email or web address] In [employer]. Ordered by DENNISE GRIMES on Collected: 10/07/2023 Reported: 10/10/19 24 00:10 Last Documented On 4 11:38AM ; [facility] Reviewed by DENNISE GRIMES on 10/28/2023; All test results are final unless otherwise noted. Reported Physicians See Note None Last Documented On 10/09/2023 11:39PM ; [facility] Note: Reported Physicians:Ordering: Dennise Anthony History of Present Illness History of Present Illness not supported for this document type No History of Present Illness Recorded Social History Description Last Updated Tobacco non-user 07/26/2022 Last Documented On 3 11:48AM ; [facility] No consumption of alcohol 03/14/2022 Last Documented On 2 3:37PM ; [facility] Not using drugs 03/14/2022 Last Documented On 2 3:37PM ; [facility] Difficulty walking 08/21/2021 Last Documented On 2 4:35PM ; [facility] Smoking Status Unknown Procedures and Surgical History Surgical History Last Updated Pacemaker 03/14/2022 Last Documented On 2 3:37PM ; [facility] Medical History Includes: Medical History in patient's chart Description Last Updated Has a fear of falling. 05/23/2022 Last Documented On 3 1:28PM ; [facility] Has had a fall in the last 12 months. Last Documented On 3 1:28PM ; [facility] History of acute myocardial infarction A ugust 202103/14/2022 Last Documented On 2 3:37PM ; [facility] Currently wearing eyeglasses 03/14/2022 Last Documented On 2 3:37PM ; [facility] Deep muscle stimulation 03/14/2022 Last Documented On 2 3:37PM ; [facility] Injection/Nerve blocks 03/14/2022 Last Documented On 2 3:37PM ; [facility] No Pain Pump 03/14/2022 Last Documented On 2 3:37PM ; [facility] No Spinal cord stimulator 03/14/2022 Last Documented On 2 3:37PM ; [facility] Physical therapy 03/14/2022 Last Documented On 2 3:37PM ; [facility] Please list all illnesses/co nditions you have been diagnosed with: Two pinched nerves in my lower back neuropathy total right knee replacement heart disease 03/14/2022 Last Documented On 2 3:37PM ; [facility] Please list all surgeries: R ight ankle 1988 right knee scope 4x 2018 total right knee replacement carpal tunnel both hands 2004 and just on the right 2013 partial hysterectomy 2009 stent in my heart 2018 heart ablation 2019 [id number] 03/14/2022 Last Documented On 2 3:37PM ; [facility] Severe Pain 03/14/2022 Last Documented On 2 3:37PM ; [facility] Uses a cane for support 03/14/2022 Last Documented On 2 3:37PM ; [facility] Which brand of pacemaker/defibrillator d o you have? Biotronik 03/14/2022 Last Documented On 2 3:37PM ; [facility] Family History Includes: Family History in patient's chart Description Last Updated Family history of Arthritis 03/14/2022 Last Documented On 2 3:37PM ; [facility] Family history of ischemic heart disease 03/14/2022 Last Documented On 2 3:37PM ; [facility] Family history of stroke/paralysis 03/14 Last Documented On 2 3:37PM ; [facility] Paternal history of Arthritis 03/14/2022 Last Documented On 2 3:37PM ; [facility] Paternal history of family history of is chemic heart disease 03/14/2022 Last Documented On 2 3:37PM ; [facility] Review of Systems Review of Systems not supported for this document type No Review of Systems Recorded Mental Status No Mental Status Recorded Functional Status No Functional Status Recorded Physical Exam Physical Exam not supported for this document type No Physical Exam Recorded Allergies Includes: Active, inactive, and resolved Allergies No Known Allergies Encounters Includes: Encounters from 06/19/2023 through 06/19/2024 Encounter Provider Location Date Check-In Time Check-Out Time Diagnosis PAIN MANAGEMENT FOLLOW UP [facility] 1:03PM 1:58PM Chronic Pain Syndrome,Bulging Intervertebral Disc Lumbar,Polyneurop athy Diabetic,Spinal Stenosis Lumbar with Neurogenic Claudication,Spon dylosis with Radiculopathy Lumbar Region,Residential Use of Opiate Analgesic,Myalgia , Other Site (M79.18) RX ISSUE/REFILL DENNISE GRIMES 024 03/27/2023 1:47PM 03/27/2023 11:59PM Insurance Includes: Active Insurance Policies Plan Name Member ID Group # Subscriber Relationship Effect arcadio Dates 1 - MEDICARE PART A CLAIMS/NGS [id number] ANAM [employer] Personal [employer] DOLLAR Self 2 - [place] MED[place]ARE SECOND [id number] ANAM [employer] Personal [employer] DOLLAR Self Clinical Notes Includes: Signed Clinical Notes starting from 06/07/2022 * Progress note Date Encounter Last Documented by 10/07/2023 PAIN MANAGEMENT FOLLOW UP Last d ocumented on 10/08/2023; 9:10 AM, DENNISE ANTHONY ANP-; [facility] Active Problems & Conditions [...] is scheduled to have surgery 06/10/23 at [facility]. She continues tylenol #3 as needed [...] muscle tightness and pressure. With her recent PA and hypotension we will avoid further medication. [...] comorbidities. Patient suffered a myocardial infarction and Counce and continues to be weak and hypotensive. [...] days. 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 Numbness and tingling in feet causes falls. After right knee replacement there was an increase in lateral thigh/knee numbness and more falls. Her neurologist placed her on permanent restrictions due to gait instability and she is now on disability. She had worked at [employer] for over 20 years. Gabapentin 300mg TID has been her dose for 5 plus years. She was originally treated by Dr Araujo until his fdc and given oxycodone. Dr Cabrera assumed care until recently. He no longer prescribes pain medication. Her pcp placed her on Tylenol #3 at bedtime, which provides minimal relief. She really doesn't question additional pain medication and is open to a treatment plan that would include reduction of medication use. 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 Plan StartCited - [facility] (current) use of opiate analgesic Lab: PRESCRIBED [...] but may be subject to typographical or gasoline truck crane operator errors. Verify all diagnoses, medications, dosages, and [...] Last documented on 07/21/2023; 10:00 AM, DENNISE HERNANDEZ-; [facility] Active Problems & Conditions [...] ~ pt phone # for Return call: [phone] ~Last Drug Screen:09/03/22 ~Date/Initials: 07/18/23 CB. Past Medical/Surgical History Reported: Injection/Nerve blocks, Deep muscle stimulation, Physical therapy, Which brand of pacemaker/defibrillator do you have? [employer], Please list all illnesses/conditions you have been diagnosed with: Two pinched nerves in my lower back neuropathy total right knee replacement heart disease, and Please list all surgeries: Right ankle 1988 right knee scope 4x 2018 total right knee replacement carpal tunnel both hands 2003 and just on the right 2012 partial hysterectomy 2009 stent in my heart 2018 heart ablation 2019 [id number]. Medical: Currently wearing eyeglasses, orthopedic history Left [...]
[2024-06-19 19:56] VITALS: BP 120/88; PULSE 97; RESP 18; TEMP 36.4; O2SAT 100
[2024-06-19 20:42] VITALS: BP 137/105; PULSE 86; RESP 16; O2SAT 100
--- OUTSIDE RECORDS SUMMARY | 2024-06-19 21:26 | XMS_ITS ---
Care Plan - [facility] Created on: June 19, 2024 ANAM JAQUEZ : 1970 Sex: Female Author Organization [facility] Address [address] [place] [address] Phone Care Team Providers Care Order Booker Name Role Phone DENNISE TRUJILLO Unavailable [phone] CAMPOS WHEELER MD Primary Care Provider [phone]
--- OUTSIDE RECORDS SUMMARY | 2024-06-19 21:26 | XMS_ITS | Clinical Summary ---
Author Organization [facility] Address [address] [place] [address] Phone Care Team Providers Care Flatbed Owner Operator Name Role Phone EUFEMIA GRIMES, DENNISE Gorman Unavailable [phone] CAMPOS WHEELER MD Primary Care Provider [phone] Reason for Visit and Chief Complaint RX ISSUE/REFILL Problems Includes: Problems addressed during this encounter and other active Problems All Visits Onset Date Resolved Date Provider Condition S tatus Coronary Artery Disease Unknown JANAE Shane PELON HIM DIRECTOR-FPA, WARDROBE ASSISTANT-BC Active Last Documented On 3 10:16AM ; [facility] Diabetes Mellitus Unknown JANAE Shane PELON APR N-FPA, WARDROBE ASSISTANT-BC Active Last Documented On 3 10:18AM ; [facility] Hypothyroidism Unknown JANAE Shane PELON HIM DIRECTOR-F PA, WARDROBE ASSISTANT-BC Active Last Documented On 3 10:18AM ; [facility] Plan of Treatment No Plan of Treatment [...] On 4 4:06PM By DENNISE GRIMES ; [facility] New / Renewed during this visit DENNISE GRIMES on 06/12/2023 Acetaminophen-Codeine 300-30 MG Oral Tablet Provider: DENNISE HERNANDEZ 30 day supply: 60 tablet, 0 refills Diagnosis: Spinal stenosis, lumbar region with neurogenic claudication 1 po bid prn/ max 2 per day Pharmacy: [facility] [id number] [facility] [phone] - Last Documented On 4 10:00AM By [facility] ; [facility] Current Medications (continue as prescribed) Linzess 145 MCG Oral Capsule 11/03/2023 Provider: ISIDORO SCHMIDT Diagnosis: Constipation, un specified TAKE 1 CAPSULE BY MOUTH DAILY Last Documented On 4 1:40PM By JANAE [facility] ; [facility] tiZANidine HCl 2 MG Oral Tablet 10/24/2023 Provider: JANAE HENNING WARDROBE ASSISTANT-CHRISTOFER Diagnosis: TAKE 1 TABLET BY MOUTH 2 TO 3 TIMES PER DAY NEEDED Last Documented On 4 10:26AM By JANAE [facility] ; [facility] Acetaminophen-Codeine 300-30 MG Oral Tablet 10/08/2023 Provider: DENNISE HERNANDEZ Diagnosis: Spinal stenosis, lumbar region with neurogenic claudication 1 po bid prn/ max 2 per day Last Documented On 4 9:26AM By [facility] ; [facility] Ozempic (0.25 or 0.5 MG/DOSE ) 2 MG/3ML Subcutaneous Solution Pen-injector 10/02/2023 Provider: Diagnosis: Last Documented On 10/07/2023 1:34PM By Laura RIVERA ; [facility] Ubrelvy 100 MG Oral Tablet 09/18/2023 Provider: Diagnosis: Last Documented On 10/07/2023 1:35PM By Laura RIVERA ; [facility] Qulipta 60 MG Oral Tablet 09/11/2023 Provider: Diagnosis: Last Documented On 10/07/2023 1:34PM By Laura RIVERA ; [facility] tiZANidine HCl 2 MG Oral Tablet 08/13/2023 Provider: JANAE BIRD APRN-FPA, [facility] Diagnosis: TAKE 1 TABLET BY MOUTH 2 TO 3 TIMES PER DAY NEEDED Last Documented On 4 12:03PM By JANAE [facility] ; [facility] Gentamicin Sulfate 0.1% External Ointment 07/11/2023 Provider: JW MARIN DPM Diagnosis: Last Documented On 10/07/2023 1:33PM By Laura RIVERA ; [facility] Gabapentin 600 MG Oral Tablet 06/23/2023 Provider: DENNISE FALL 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 TAKE 1 TABLET BY MOUTH THREE TIMES DAILY Last Documented On 4 8:40AM By [facility] ; [facility] DULoxetine HCl 60 MG Oral Capsule Delayed Release Particles 06/23/2023 Provider: DENNISE HERNANDEZ [facility] Diagnosis: Chronic pain syn drome TAKE 1 CAPSULE BY MOUTH DAILY Last Documented On 4 8:40AM By [facility] ; [facility] Santyl 250 UNIT/GM External Ointment 06/06/2023 Prov ider: JW MARIN DPM Diagnosis: Last Documented On 10/07/2023 1:34PM By Laura RIVERA ; [facility] Bumetanide 1 MG Oral Tablet 09/13/2022 Provider: Diagnosis: Last Documented On 3 10:28AM By Laura RIVERA ; [facility] Kerendia 20 MG Oral Tablet 03/03/2022 Provider: Diagnosis: Last Documented On 03/14/2022 3:11PM By Laura RIVERA ; [facility] Brilinta 90 MG Oral Tablet 02/19/2022 Provider: Diagnosis: Last Documented On 03/14/2022 3:12PM By Laura RIVERA ; [facility] Carvedilol 6.25 MG Oral Tablet 01/26/2022 Provider: Diagnosis: Last Documented On 03/14/2022 3:06PM By Laura RIVERA ; [facility] Entresto 24-26 MG Oral Tablet 01/25/2022 Provider: Diagnosis: Last Documented On 03/14/2022 3:13PM By Laura RIVERA ; [facility] Jardiance 25 MG Oral Tablet 09/03/2021 Provider: Diagnosis: Last Documented On 09/20/2021 9:45AM By Laura RIVERA ; [facility] Aspirin 81 MG Oral Capsule 08/21/2021 Provider: Diagnosis: Last Documented On 08/21/2021 1:34PM By Laura RIVERA ; [facility] Nitroglycerin 0.4 MG Sublingual Tablet Sublingual 09/2021 Provider: Diagnosis: Last Documented On 08/21/2021 1:36PM By Laura RIVERA ; [facility] metFORMIN HCl 1000 MG Oral Tablet 08/20/2021 Provide r: CAMPOS WHEELER MD Diagnosis: Last Documented On 08/21/2021 1:30PM By Laura RIVERA ; [facility] Levothyroxine Sodium 100 MCG Oral Tablet 08/20/2021 Provider: CAMPOS WHEELER MD Diagnosis: Last Documented On 08/21/2021 1:30PM By Laura RIVERA ; [facility] Topiramate 25 MG Oral Tablet 2021 Provider: Diagnosis: Last Documented On 08/21/2021 1:31PM By Laura RIVERA ; [facility] Atorvastatin Calcium 40 MG Oral Tablet 08/09/2021 Pr ovider: CAMPOS WHEELER MD Diagnosis: Last Documented On 08/21/2021 1:31PM By Laura RIVERA ; [facility] Past Medications on file Bumetanide 1 MG Oral Tablet 05/23/2022 - 06/22/2022 Pr ovider: Diagnosis: Last Documented On 3 10:20AM By JANAE TURNER ; [facility] Medications Administered Includes: Administered Medications from this encounter No Administered Medications Recorded Results Includes: Results discussed during this encounter No Results Recorded For Specified Dates History of Present Illness Includes: History of Present Illness from this encounter No History of Present Illness Recorded Social History Description Last Updated Tobacco non-user 07/26/2022 Last Documented On 4 3:32PM ; [facility] Difficulty walking 08/21/2021 Last Documented On 4 3:32PM ; [facility] Smoking Status Unknown Procedures and Surgical History Surgical History Last Updated Pacemaker 03/14/2022 Last Documented On 4 3:32PM ; [facility] Medical History Includes: Medical History addressed during this encounter Description Last Updated Has a fear of falling. 05/23/2022 Last Documented On 4 3:32PM ; [facility] Has had a fall in the last 12 months. Last Documented On 4 3:32PM ; [facility] History of acute myocardial infarction A ugust 202103/14/2022 Last Documented On 4 3:32PM ; [facility] Currently wearing eyeglasses 03/14/2022 Last Documented On 4 3:32PM ; [facility] Deep muscle stimulation 03/14/2022 Last Documented On 4 3:32PM ; [facility] Injection/Nerve blocks 03/14/2022 Last Documented On 4 3:32PM ; [facility] Physical therapy 03/14/2022 Last Documented On 4 3:32PM ; [facility] Please list all illnesses/co nditions you have been diagnosed with: Two pinched nerves in my lower back neuropathy total right knee replacement heart disease 03/14/2022 Last Documented On 4 3:32PM ; [facility] Please list all surgeries: R ight ankle 1988 right knee scope 4x 2018 total right knee replacement carpal tunnel both hands 2004 and just on the right 2012 partial hysterectomy 2009 stent in my heart 2018 heart ablation 2019 [id number] 03/14/2022 Last Documented On 4 3:32PM ; [facility] Severe Pain 03/14/2022 Last Documented On 4 3:32PM ; [facility] Uses a cane for support 03/14/2022 Last Documented On 4 3:32PM ; [facility] Which brand of pacemaker/defibrillator d o you have? Biotronik 03/14/2022 Last Documented On 4 3:32PM ; [facility] Family History Includes: Family History [...] Dates 1 - MEDICARE PART A CLAIMS/NGS [id number] My [employer] 2 - MEDICAID [place] MEDICARE SECOND [id number] My Pick Box Clinical Notes Includes: Clinical Notes from this encounter * Progress note Date Encounter Last Documented by 06/12/2023 RX ISSUE/REFILL Last documented on 06/12/2023; 4:07 PM, DENNISE GRIMES; [facility] Active Problems & Conditions [...] in my heart 2018 heart ablation 2019 [id number]. Medical: Currently wearing eyeglasses, orthopedic history Left [...]
--- OUTSIDE RECORDS SUMMARY | 2024-06-19 21:26 | XMS_ITS | Clinical Summary ---
Author Organization [facility] Address [address] [place] [address] Phone Care Team Providers Care Instrument Technician Name Role Phone EUFEMIA GRIMES, DENNISE Gorman Unavailable [phone] CAMPOS WHEELER MD Primary Care Provider [phone] Reason for Visit and Chief Complaint RX ISSUE/REFILL Problems Includes: Problems addressed during this encounter and other active Problems All Visits Onset Date Resolved Date Provider Condition S tatus Coronary Artery Disease Unknown JANAE BIRD ALARM SECURITY OR SURVEILLANCE MONITOR-FPA, COMMERCIAL FIELD INSPECTOR-BC Active Last Documented On 3 10:16AM ; [facility] Diabetes Mellitus Unknown JANAE BIRD APR N-FPA, COMMERCIAL FIELD INSPECTOR-BC Active Last Documented On 3 10:18AM ; [facility] Hypothyroidism Unknown JANAE BIRD ALARM SECURITY OR SURVEILLANCE MONITOR-F PA, COMMERCIAL FIELD INSPECTOR-BC Active Last Documented On 3 10:18AM ; [facility] Plan of Treatment [...] On 4 10:00AM By DENNISE GRIMES ; [facility] Current Medications (continue as prescribed) Linzess 145 MCG Oral Capsule 11/03/2023 Provider: JANAE BIRD APRN- FPA [facility] Diagnosis: Constipation, un specified TAKE 1 CAPSULE BY MOUTH DAILY Last Documented On 4 1:40PM By JANAE BIRD [facility] ; [facility] tiZANidine HCl 2 MG Oral Tablet 10/24/2023 Provider: JANAE BIRD APRN-FPA [facility] Diagnosis: TAKE 1 TABLET BY MOUTH 2 TO 3 TIMES PER DAY NEEDED Last Documented On 4 10:26AM By JANAE BIRD [facility] ; [facility] Acetaminophen-Codeine 300-30 MG Oral Tablet 10/08/2023 Provider: DENNISE GRIMES Diagnosis: Spinal stenosis, lumbar region with neurogenic claudication 1 po bid prn/ max 2 per day Last Documented On 4 9:26AM By DENNISE HERNANDEZ ; [facility] Ozempic (0.25 or 0.5 MG/DOSE ) 2 MG/3ML Subcutaneous Solution Pen-injector 10/02/2023 Provider: Diagnosis: Last Documented On 10/07/2023 1:34PM By Laura RIVERA ; [facility] Ubrelvy 100 MG Oral Tablet 09/18/2023 Provider: Diagnosis: Last Documented On 10/07/2023 1:35PM By Laura RIVERA ; [facility] Qulipta 60 MG Oral Tablet 09/11/2023 Provider: Diagnosis: Last Documented On 10/07/2023 1:34PM By Laura RIVERA ; [facility] tiZANidine HCl 2 MG Oral Tablet 08/13/2023 Provider: JANAE BIRD APRN-ALTHEA [facility] Diagnosis: TAKE 1 TABLET BY MOUTH 2 TO 3 TIMES PER DAY NEEDED Last Documented On 4 12:03PM By JANAE BIRD [facility] ; [facility] Gentamicin Sulfate 0.1% External Ointment 07/11/2023 Provider: JW MARIN DPM Diagnosis: Last Documented On 10/07/2023 1:33PM By Larua RIVERA ; [facility] Gabapentin 600 MG Oral Tablet 06/23/2023 Provider: DENNISE HERNANDEZBC Diagnosis: [facility] diabetes lary litus with diabetic polyneuropathy TAKE 1 TABLET BY MOUTH THREE TIMES DAILY Last Documented On 4 8:40AM By DENNISE FALL [facility] ; [facility] DULoxetine HCl 60 MG Oral Capsule Delayed Release Particles 06/23/2023 Provider: DENNISE FALL [facility] Diagnosis: Chronic pain syn drome TAKE 1 CAPSULE BY MOUTH DAILY Last Documented On 4 8:40AM By DENNISE FALL [facility] ; [facility] Santyl 250 UNIT/GM External Ointment 06/06/2023 Prov ider: JW MARIN DPM Diagnosis: Last Documented On 10/07/2023 1:34PM By Laura RIVERA ; [facility] Bumetanide 1 MG Oral Tablet 09/13/2022 Provider: Diagnosis: Last Documented On 3 10:28AM By Laura RIVERA ; [facility] Kerendia 20 MG Oral Tablet 03/03/2022 Provider: Diagnosis: Last Documented On 03/14/2022 3:11PM By Laura RIVERA ; [facility] Brilinta 90 MG Oral Tablet 02/19/2022 Provider: Diagnosis: Last Documented On 03/14/2022 3:12PM By Laura RIVERA ; [facility] Carvedilol 6.25 MG Oral Tablet 01/26/2022 Provider: Diagnosis: Last Documented On 03/14/2022 3:06PM By Laura RIVERA ; [facility] Entresto 24-26 MG Oral Tablet 01/25/2022 Provider: Diagnosis: Last Documented On 03/14/2022 3:13PM By Laura RIVERA ; [facility] Jardiance 25 MG Oral Tablet 09/03/2021 Provider: Diagnosis: Last Documented On 09/20/2021 9:45AM By Laura RIVERA ; [facility] Aspirin 81 MG Oral Capsule 08/21/2021 Provider: Diagnosis: Last Documented On 08/21/2021 1:34PM By Laura RIVERA ; [facility] Nitroglycerin 0.4 MG Sublingual Tablet Sublingual 09/2021 Provider: Diagnosis: Last Documented On 08/21/2021 1:36PM By Laura RIVERA ; [facility] metFORMIN HCl 1000 MG Oral Tablet 08/20/2021 Provide r: CAMPOS WHEELER MD Diagnosis: Last Documented On 08/21/2021 1:30PM By Laura RIVERA ; [facility] Levothyroxine Sodium 100 MCG Oral Tablet 08/20/2021 Provider: CAMPOS WHEELER MD Diagnosis: Last Documented On 08/21/2021 1:30PM By Laura RIVERA ; [facility] Topiramate 25 MG Oral Tablet 2021 Provider: Diagnosis: Last Documented On 08/21/2021 1:31PM By Laura RIVERA ; [facility] Atorvastatin Calcium 40 MG Oral Tablet 08/09/2021 Pr ovider: CAMPOS WHEELER MD Diagnosis: Last Documented On 08/21/2021 1:31PM By Laura RIVERA ; [facility] Past Medications on file Bumetanide 1 MG Oral Tablet 05/23/2022 - 06/22/2022 Pr ovider: Diagnosis: Last Documented On 3 10:20AM By JANAE BIRD [facility] ; [facility] Medications Administered Includes: Administered Medications from this encounter No Administered Medications Recorded Results Includes: Results discussed during this encounter No Results Recorded For Specified Dates History of Present Illness Includes: History of Present Illness from this encounter No History of Present Illness Recorded Social History Description Last Updated Tobacco non-user 07/26/2022 Last Documented On 4 1:47PM ; [facility] Difficulty walking 08/21/2021 Last Documented On 4 1:47PM ; [facility] Smoking Status Unknown Procedures and Surgical History Surgical History Last Updated Pacemaker 03/14/2022 Last Documented On 4 1:47PM ; [facility] Medical History Includes: Medical History addressed during this encounter Description Last Updated Has a fear of falling. 05/23/2022 Last Documented On 4 1:47PM ; [facility] Has had a fall in the last 12 months. Last Documented On 4 1:47PM ; [facility] History of acute myocardial infarction A ugust 202103/14/2022 Last Documented On 4 1:47PM ; [facility] Currently wearing eyeglasses 03/14/2022 Last Documented On 4 1:47PM ; [facility] Deep muscle stimulation 03/14/2022 Last Documented On 4 1:47PM ; [facility] Injection/Nerve blocks 03/14/2022 Last Documented On 4 1:47PM ; [facility] Physical therapy 03/14/2022 Last Documented On 4 1:47PM ; [facility] Please list all illnesses/co nditions you have been diagnosed with: Two pinched nerves in my lower back neuropathy total right knee replacement heart disease 03/14/2022 Last Documented On 4 1:47PM ; [facility] Please list all surgeries: R ight ankle 1988 right knee scope 4x 2018 total right knee replacement carpal tunnel both hands 2003 and just on the right 2012 partial hysterectomy 2009 stent in my heart 2018 heart ablation 2019 [id number] 03/14/2022 Last Documented On 4 1:47PM ; [facility] Severe Pain 03/14/2022 Last Documented On 4 1:47PM ; [facility] Uses a cane for support 03/14/2022 Last Documented On 4 1:47PM ; [facility] Which brand of pacemaker/defibrillator d o you have? Biotronik 03/14/2022 Last Documented On 4 1:47PM ; [facility] Family History Includes: Family History addressed [...] Dates 1 - MEDICARE PART A CLAIMS/NGS [id number] ANAM [place] 2 - [place] MEDICARE SECOND [id number] ANAM [place] Clinical Notes Includes: Clinical Notes from this encounter * Progress note Date Encounter Last Documented by 07/18/2023 RX ISSUE/REFILL Last documented on 07/21/2023; 10:00 AM, DENNISE FALL ANP-; [facility] Active Problems & Conditions [...] ~ pt phone # for Return call: [phone] ~Last Drug Screen:09/03/22 ~Date/Initials: 07/18/23 CB. Past Medical/Surgical History Reported: Injection/Nerve blocks, Deep muscle stimulation, Physical therapy, Which brand of pacemaker/defibrillator do you have? [employer], Please list all illnesses/conditions you have been diagnosed with: Two pinched nerves in my lower back neuropathy total right knee replacement heart disease, and Please list all surgeries: Right ankle 1988 right knee scope 4x 2018 total right knee replacement carpal tunnel both hands 2004 and just on the right 2012 partial hysterectomy 2009 stent in my heart 2018 heart ablation 2019 [id number]. Medical: Currently wearing eyeglasses, orthopedic history Left [...]
--- OUTSIDE RECORDS SUMMARY | 2024-06-19 21:26 | XMS_ITS | Clinical Summary ---
Author Organization [facility] Address [address] [place] [address] Phone Care Team Providers Care Security Shift Manager Name Role Phone EUFEMIA SYDNEY DENNISE Vita Unavailable [phone] CAMPOS WHEELER MD Primary Care Provider [phone] Reason for Visit and Chief Complaint RX ISSUE/REFILL Problems Includes: Problems addressed during this encounter and other active Problems All Visits Onset Date Resolved Date Provider Condition S tatus Coronary Artery Disease Unknown JANAE BIRD APRN-FPA, STEEL PLATE PRINTER-BC Active Last Documented On 3 10:16AM ; [facility] Diabetes Mellitus Unknown JANAE BIRD APR N-FPA, STEEL PLATE PRINTER-BC Active Last Documented On 3 10:18AM ; [facility] Hypothyroidism Unknown JANAE BIRD APRN-F PA, STEEL PLATE PRINTER-BC Active Last Documented On 3 10:18AM ; [facility] Plan of Treatment No Plan of Treatment [...] On 4 1:40PM By JANAE TURNERBC ; [facility] tiZANidine HCl 2 MG Oral Tablet 10/24/2023 Provider: JANAE G PELON LICENSED AND CERTIFIED MIDWIFE-FPA, STEEL PLATE PRINTER-BC Diagnosis: TAKE 1 TABLET BY MOUTH 2 TO 3 TIMES PER DAY NEEDED Last Documented On 4 10:26AM By JANAE BIRD [facility] ; [facility] Acetaminophen-Codeine 300-30 MG Oral Tablet 10/08/2023 Provider: DENNISE GRIMES Diagnosis: Spinal stenosis, lumbar region with neurogenic claudication 1 po bid prn/ max 2 per day Last Documented On 4 9:26AM By DENNISE HERNANDEZ ; [facility] Ozempic (0.25 or 0.5 MG/DOSE ) 2 MG/3ML Subcutaneous Solution Pen-injector 10/02/2023 Provider: Diagnosis: Last Documented On 10/07/2023 1:34PM By Laura RIVERA ; [facility] Ubrelvy 100 MG Oral Tablet 09/18/2023 Provider: Diagnosis: Last Documented On 10/07/2023 1:35PM By Laura RIVERA ; [facility] Qulipta 60 MG Oral Tablet 09/11/2023 Provider: Diagnosis: Last Documented On 10/07/2023 1:34PM By Laura RIVERA ; [facility] tiZANidine HCl 2 MG Oral Tablet 08/13/2023 Provider: JANAE BIRD APRN-FPA, STEEL PLATE PRINTER-BC Diagnosis: TAKE 1 TABLET BY MOUTH 2 TO 3 TIMES PER DAY NEEDED Last Documented On 4 12:03PM By JANAE BIRD [facility] ; [facility] Gentamicin Sulfate 0.1% External Ointment 07/11/2023 Provider: JW MARIN DPOfelia Diagnosis: Last Documented On 10/07/2023 1:33PM By Laura RIVERA ; [facility] Gabapentin 600 MG Oral Tablet 06/23/2023 Provider: DENNISE GRIMES 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 TAKE 1 TABLET BY MOUTH THREE TIMES DAILY Last Documented On 4 8:40AM By DENNISE GRIMES ; [facility] DULoxetine HCl 60 MG Oral Capsule Delayed Release Particles 06/23/2023 Provider: DENNISE Barnes Diagnosis: Chronic pain syn drome TAKE 1 CAPSULE BY MOUTH DAILY Last Documented On 4 8:40AM By DENNISE FALL [facility] ; [facility] Santyl 250 UNIT/GM External Ointment 06/06/2023 Prov ider: JW MARIN DPM Diagnosis: Last Documented On 10/07/2023 1:34PM By Laura RIVERA ; [facility] Bumetanide 1 MG Oral Tablet 09/13/2022 Provider: Diagnosis: Last Documented On 3 10:28AM By Laura RIVERA ; [facility] Kerendia 20 MG Oral Tablet 03/03/2022 Provider: Diagnosis: Last Documented On 03/14/2022 3:11PM By Laura RIVERA ; [facility] Brilinta 90 MG Oral Tablet 02/19/2022 Provider: Diagnosis: Last Documented On 03/14/2022 3:12PM By Laura RIVERA ; [facility] Carvedilol 6.25 MG Oral Tablet 01/26/2022 Provider: Diagnosis: Last Documented On 03/14/2022 3:06PM By Laura RIVERA ; [facility] Entresto 24-26 MG Oral Tablet 01/25/2022 Provider: Diagnosis: Last Documented On 03/14/2022 3:13PM By Laura RIVERA ; [facility] Jardiance 25 MG Oral Tablet 09/03/2021 Provider: Diagnosis: Last Documented On 09/20/2021 9:45AM By Laura RIVERA ; [facility] Aspirin 81 MG Oral Capsule 08/21/2021 Provider: Diagnosis: Last Documented On 08/21/2021 1:34PM By Laura RIVERA ; [facility] Nitroglycerin 0.4 MG Sublingual Tablet Sublingual 09/2021 Provider: Diagnosis: Last Documented On 08/21/2021 1:36PM By Laura RIVERA ; [facility] metFORMIN HCl 1000 MG Oral Tablet 08/20/2021 Provide r: CAMPOS WHEELER MD Diagnosis: Last Documented On 08/21/2021 1:30PM By Laura RIVERA ; [facility] Levothyroxine Sodium 100 MCG Oral Tablet 08/20/2021 Provider: CAMPOS WHEELER MD Diagnosis: Last Documented On 08/21/2021 1:30PM By Laura RIVERA ; [facility] Topiramate 25 MG Oral Tablet 2021 Provider: Diagnosis: Last Documented On 08/21/2021 1:31PM By Laura RIVERA ; [facility] Atorvastatin Calcium 40 MG Oral Tablet 08/09/2021 Pr ovider: CAMPOS WHEELER MD Diagnosis: Last Documented On 08/21/2021 1:31PM By Laura RIVERA ; [facility] Past Medications on file Bumetanide 1 MG Oral Tablet 05/23/2022 - 06/22/2022 Pr ovider: Diagnosis: Last Documented On 3 10:20AM By JANAE TURNER ; [facility] Medications Administered Includes: Administered Medications from this encounter No Administered Medications Recorded Results Includes: Results discussed during this encounter No Results Recorded For Specified Dates History of Present Illness Includes: History of Present Illness from this encounter HPI Pharmacy name:~location:[facility]. Social History Description Last Updated Tobacco non-user 07/26/2022 Last Documented On 4 1:09PM ; [facility] Difficulty walking 08/21/2021 Last Documented On 4 1:09PM ; [facility] Smoking Status Unknown Procedures and Surgical History Surgical History Last Updated Pacemaker 03/14/2022 Last Documented On 4 1:09PM ; [facility] Medical History Includes: Medical History addressed during this encounter Description Last Updated Has a fear of falling. 05/23/2022 Last Documented On 4 1:09PM ; [facility] Has had a fall in the last 12 months. Last Documented On 4 1:09PM ; [facility] History of acute myocardial infarction A ugust 202103/14/2022 Last Documented On 4 1:09PM ; [facility] Currently wearing eyeglasses 03/14/2022 Last Documented On 4 1:09PM ; [facility] Deep muscle stimulation 03/14/2022 Last Documented On 4 1:09PM ; [facility] Injection/Nerve blocks 03/14/2022 Last Documented On 4 1:09PM ; [facility] Physical therapy 03/14/2022 Last Documented On 4 1:09PM ; [facility] Please list all illnesses/co nditions you have been diagnosed with: Two pinched nerves in my lower back neuropathy total right knee replacement heart disease 03/14/2022 Last Documented On 4 1:09PM ; [facility] Please list all surgeries: R ight ankle 1988 right knee scope 4x 2018 total right knee replacement carpal tunnel both hands 2004 and just on the right 2012 partial hysterectomy 2009 stent in my heart 2018 heart ablation 2019 [id number] 03/14/2022 Last Documented On 4 1:09PM ; [facility] Severe Pain 03/14/2022 Last Documented On 4 1:09PM ; [facility] Uses a cane for support 03/14/2022 Last Documented On 4 1:09PM ; [facility] Which brand of pacemaker/defibrillator d o you have? Biotronik 03/14/2022 Last Documented On 4 1:09PM ; [facility] Family History Includes: Family History addressed during [...] Dates 1 - MEDICARE PART A CLAIMS/NGS [id number] ANAM K [employer]LLAR Self 2 - [place] MEDICARE SECOND [id number] ANAM [employer] DOLLAR Self Clinical Notes Includes: Clinical Notes from this encounter * Progress note Date Encounter Last Documented by 06/09/2023 RX ISSUE/REFILL Last documented on 06/10/2023; 8:28 AM, DENNISE FALL ANP-; [facility] Active Problems & Conditions - Coronary Artery Disease - Diabetes Mellitus - Hypothyroidism Chief Complaint Phone Call - Chief Concern: Reason for call:REFILL Patient is requesting a refill on TYLENOL #3 ~How is medication taken? BID ~How many are left?OUT OF MEDICATION Risk Assessment Score: LOW ~[place]:03/28/23 Last Office Visit: 03/27/23 ~ pt phone # for Return call: [phone] ~Last Drug Screen:09/03/22 ~Date/Initials: 06/09/23, KMS. History of Present Illness Pharmacy name:~location:[facility]. Past Medical/Surgical History Reported: Injection/Nerve blocks, Deep muscle stimulation, Physical therapy, Which brand of pacemaker/defibrillator do you have? [employer], Please list all illnesses/conditions you have been diagnosed with: Two pinched nerves in my lower back neuropathy total right knee replacement heart disease, and Please list all surgeries: Right ankle 1988 right knee scope 4x 2018 total right knee replacement carpal tunnel both hands 2003 and just on the right 2012 partial hysterectomy 2009 stent in my heart 2018 heart ablation 2019 [id number]. Medical: Currently wearing eyeglasses, orthopedic history Left [...]
--- OUTSIDE RECORDS SUMMARY | 2024-06-19 21:26 | XMS_ITS | CONTINUITY OF CARE DOCUMENT ---
Author Name juan r pete Address Unknown Organization [facility] Address [address] [place] [address] Phone [phone] Care Team Providers Care Supervisor Aircraft Maintenance Name Role Phone Iqra HAYWARD, Hussain Hathaway Unavailable Rehan Richmond Unavailable [phone] Pérez Merlos MD Unavailable PROBLEMS Condition Status [...] In-person encounter Office Visit Hussain Escalona MD [facility] Preop cardiovasc. examination - In-person encounter Office Visit Hussain Escalona MD [facility] - In-person encounter Office Visit Hussain Escalona MD [facility] - In-person encounter Office Visit Hussain Escalona MD [facility] Hypotension - In-person encounter Office Visit Hussain Escalona MD [facility] Cardiology examination - In-person encounter Office Visit Hussain Escalona MD [facility] - In-person encounter Office Visit Hussain Escalona MD [facility] - In-person encounter Office Visit Hussain Escalona MD [facility] Mitral regurgitation - In-person encounter Office Visit Colby Obando MD [facility] CHF, acute, systolicCardiomyopathyLower extremity edema, bilateral - In-person encounter Office Visit Hussain Escalona MD [facility] - In-person encounter Office Visit Hussain Escalona MD [facility] Personal history of COVID-19, 06/2021 - In-person encounter Office Visit Hussain Escalona MD [facility] Diabetes Mellitus, Type II, uncontrolled - In-person encounter Office Visit Hussain Escalona MD [facility] - In-person encounter Office Visit Hussain Escalona MD [facility] Hypothyroidism - In-person encounter Office Visit Hussain Escalona MD [facility] Arthritis - osteo; R leg - In-person encounter Office Visit Petra Tobar MD [facility] S/P Biotronik (MRI Safe) Loop BioMonitor III - In-person encounter Office Visit Petra Tobar MD [facility] - In-person encounter Office Visit Hussain Escalona MD [facility] S/P DC AICD - Biotronik ( MRI Safe) - In-person encounter Office Visit [facility] - In-person encounter Office Visit Petra [place] [facility] - In-person encounter Office Visit Hussain Escalona MD [facility] - In-person encounter Office Visit [facility] VENTRICULAR TACHYCARDIASVT - In-person encounter Office Visit Hussain Escalona MD [facility] - In-person encounter Office Visit Hussain Escalona MD [facility] - In-person encounter Office Visit Hussain Escalona MD [facility] - In-person encounter Office Visit Hussain Escalona MD [facility] Fatigue - In-person encounter Office Visit Hussain Escalona MD [facility] - In-person encounter Office Visit Hussain Escalona MD [facility] - In-person encounter Office Visit Hussain Escalona MD [facility] - In-person encounter Office Visit Hussain Escalona MD [facility] OSAPAD - BLE with claudicationHeadache - In-person encounter Office Visit Hussain Escalona MD [facility] HypertensionCADStent ? Drug ElutingDM - type [...] blood pressure, cuff size regular Fa modesta [place] blood pressure, diastolic 107 mm[Hg] Fa ith [place] blood pressure, systolic 152 mm[Hg] Dane ortega [place] respiratory rate E&M 17 /min Emeli Ofelia iller oxygen saturation, oximetry 99 % [facility] pulse rate 77 /min Emeli [place] weight E&M 129 [lb_av] Emeli [place] height E&M 65 [in_i] [facility] [...] Cely nkLog blood pressure, systolic 123 mm[Hg] [facility] blood pressure, diastolic 84 mm[Hg] Reena torres [place] blood pressure, systolic 123 mm[Hg] [facility] maria e [place] oxygen saturation, oximetry 96 % Jannette Alegria pulse rate 97 /min Jannette soriano blood pressure, cuff size large Reena torres [place] weight E&M 173 [lb_av] Jannette soriano respiratory rate E&M 16 /min Crystal carr [place] height E&M 65 [in_i] Jannette soriano blood pressure, diastolic 80 mm[Hg] nkLog blood pressure, systolic 120 mm[Hg] Eva [facility] Body Mass Index (Ratio) 28.29 kg/m2 Kimberly Obando MD blood pressure, cuff size large Ke rri Gruenenfeldfredrick blood pressure, diastolic 80 mm[Hg] Ke rri Gruenenfelder blood pressure, systolic 120 mm[Hg] Ker ri Gruenenfeldfredrick oxygen saturation, oximetry 98 % Tamra Gruenenfeldfredrick respiratory rate E&M 16 /min Tamra G ruenenfelder pulse rate 98 /min Tamra Gruenenfe [facility] weight E&M 170 [lb_av] Tamra Eri [facility] height E&M 65 [in_i] Tamra Eri [facility] Body Mass Index (Ratio) 25.62 kg/m2 Nilesh Escalona MD blood pressure, diastolic 94 mm[Hg] Cely nkLog blood pressure, systolic 124 mm[Hg] Eva kLogic blood pressure, cuff size large Ta ismael Van blood pressure, diastolic 94 mm[Hg] Ta ismael [place] blood pressure, systolic 124 mm[Hg] [facility] oxygen saturation, oximetry 98 % [facility] respiratory rate E&M 20 /min [facility] pulse rate 128 /min [facility] weight E&M 154.0 [lb_av] [facility] height E&M 65 [in_i] Ujlianne [place] Body Mass Index (Ratio) 31.61 kg/m2 Nilesh [...] blood pressure, systolic 140 mm[Hg] [facility] [place] blood pressure, resting Yes Tico Nate pulse rate 96 /min Rebeca [place] oxygen saturation, oximetry 98 % Rebeca [place] respiratory rate E&M 18 /min Rebeca Nate [...] Chastit y Adrián height E&M 65 [in_i] [facility] Body [facility] (Ratio) 33.11 kg/m2 Nilesh [...] [place] blood pressure, systolic 122 mm[Hg] Ton [facility] weight E&M 202 [lb_av] Tonsha [place] height E&M 65 [in_i] [facility] [place] Body Mass Index (Ratio) 33.61 [...] ttany Block oxygen saturation, oximetry 98 % Carias Block weight E&M 206 [lb_av] Carisa Block [...] blood pressure, diastolic 80 mm[Hg] Kr isty [place] blood pressure, systolic 120 mm[Hg] Kri sty Nate pulse rate 80 /min Rebeca [place] oxygen saturation, oximetry 98 % Rebeca Nate respiratory rate E&M 17 /min Rebeca Nate blood pressure, cuff size regular Kr isty Nate weight E&M 206.2 [lb_av] Rebeca Nate height E&M 65 [in_i] Rebeca [place] Body Mass Index (Ratio) 34.11 kg/m2 Nilesh [...] 0-149 High cholesterol, serum 143 mg/dL LinkLogic 112-115 7855/09 /02 hemoglobin A1C, blood, as % of [...] Not Estab. platelet count 334 X10E3/UL LinkLog[facility] 656-853 2572/09 /02 red blood cell distribution width 12.6 [...] LinkLogic 3.5-5.2 sodium, serum 136 mmol/L [facility] 068-198 2386/09 /02 urea nitrogen/creatinine ratio, serum 14 LinkLogic [...] 0-149 High cholesterol, serum 140 mg/dL [facility] 668-842 2960/12 /24 alanine aminotransferase (SGPT), serum 16 1/L [...] LinkLogic 3.5-5.2 sodium, serum 135 mmol/L [facility] 330-890 4171/12 /24 urea nitrogen/creatinine ratio, serum 17 LinkLogic [...] Not Estab. platelet count 348 X10E3/UL [facility] 092-040 0771/07 /24 red blood cell distribution width 12.3 [...] LinkLogic 3.5-5.2 sodium, serum 141 mmol/L [facility] 718-017 2400/07 /24 urea nitrogen/creatinine ratio, serum 16 [facility] 9-23 eGFR if 119 mL/min/{1.7 3_m2} LinkLogic >59 eGFR if not 104 mL/min/{1.7 3_m2} [facility]ic >59 creatinine, serum 0.70 mg/dL [facility] 0.57-1.00 urea nitrogen, blood 11 mg/dL [facility] 6-24 blood glucose, random 154 mg/dL [facility] 65-99 High international normalized ratio (INR) 0.9 [facility] Normal prothrombin time (patient) 10.2 s [facility] free thyroxine index 2.2 [facility]Logic 1.2-4.9 triiodothyronine resin uptake 28 % [facility] 24-39 thyroxine, serum, total 8.0 ug/dL [facility] 4.5-12.0 thyroid stimulating hormone, serum 1.430 u[IU]/mL [facility] 0.450-4.500 ferritin, serum 133 ng/mL [facility] 15-150 iron saturation percent, serum 43 % [facility] 15-55 iron, serum 105 ug/dL [facility] 27-159 iron binding capacity, unsaturated 141 ug/dL [facility] 742-403 3522/01 /11 iron binding capacity, total 246 ug/dL [...] Not Estab. platelet count 360 X10E3/UL [facility] 767-238 8715/01 /11 red blood cell distribution width 13.1 [...] LinkLogic 3.5-5.2 sodium, serum 140 mmol/L [facility] 737-049 8415/11 /14 urea nitrogen/creatinine ratio, serum 23 LinkLogic [...] LinkLogic 0-149 cholesterol, serum 125 mg/dL [facility] 084-110 1407/03 /21 hemoglobin A1C, blood, as % of total hemoglobin 9.4 % [facility] 4.8-5.6 High calcium, serum 9.1 mg/dL [facility] 8.7-10.2 carbon dioxide, venous blood 22 mmol/L [facility] 20-29 chloride, serum 104 mmol/L [facility] 96-106 potassium, serum 4.0 mmol/L [facility]ic 3.5-5.2 sodium, serum 139 mmol/L [facility] 623-822 9758/03 /21 urea nitrogen/creatinine ratio, serum 13 LinkLogic [...] LinkLogic 0-149 cholesterol, serum 118 mg/dL [facility] 748-768 2573/09 /01 alanine aminotransferase (SGPT), serum 12 1/L [...] LinkLogic 3.5-5.2 sodium, serum 139 mmol/L [facility] 724-140 9478/09 /01 urea nitrogen/creatinine ratio, serum 20 LinkLogic [...] Take 1 tablet by mouth as [facility] 6.25 mg tablet active TAKE 1 TABLET BY MOUTH TWICE DAILY 10/[address] [facility] bumetanide 1 mg tablet active TAKE 1 TABLET BY MOUTH TWICE DAILY 07/11 Gertrude Lopez carvedilol 6.25 mg tablet completed Take 1 tablet by mouth twice a day 11/11 - 10/28 [facility] clopidogrel 75 mg tablet completed TAKE 1 [...] once a day 01/25 - 02/05 Hussain Escalnoa MD furosemide 20 mg tablet completed Take 1 tablet once a day 01/25 - 01/25 Maggie Ventimiglia [facility] losartan 25 mg tablet completed - 01/25 Maggie Ventimiglia [facility] tizanidine 2 mg tablet active Tamra Augustin Kerendia 20 mg tablet completed Take 1 tablet by mouth once a day 01/25 - Darline Morrow Entresto 24-26 mg tablet active Take 1 tablet by mouth twice a day 01/25 Maggie Ventimiglia [facility] carvedilol 6.25 mg tablet completed TAKE ONE TABLET BY MOUTH TWICE DAILY 01/25 - 11/11 Tamra Augustin Linzess 145 mcg capsule active Maggie Ventimiglia [facility] Jardiance 25 mg tablet active Maggie Ventimiglia [facility] losartan 25 mg tablet completed - 01/25 Maggie Ventimiglia [facility] Brilinta 90 mg tablet completed - 02/05 Jannette Alegria carvedilol 3.125 mg tablet completed - 01/25 Maggie Ventimiglia [facility] Vascepa 1 gram capsule completed TAKE 2 CAPSULES BY MOUTH TWICE DAILY 01/15 - Darline Morrow diltiazem HCl 30 mg tablet completed Take 1 tablet by mouth every eight hours 12/05 - 01/25 Maggie Ventimiglia [facility] aspirin 81 mg tablet,delayed release (DR/EC) active TAKE 1 TABLET BY MOUTH EVERY DAY 11/06 Tamra Augustin metoprolol succinate 100 mg tablet extended release 24 hr completed TAKE 1 TABLET BY MOUTH DAILY 09/19 - 01/25 Maggie Ventimiglia [facility] lisinopril 10 mg tablet completed TAKE 1 TABLET BY MOUTH EVERY DAY DIRECTED 08/27 - 01/25 Maggie Ventimiglia [facility] Vascepa 1 gram capsule completed - 01/15 [...] active Take 1 once a day 01/16 uHssain Escalona MD lisinopril 10 mg tablet completed [...] three times a day 01/16 Maggie Connor [facility] SOCIAL HISTORY Date Observation Value Provider alcohol [...] Hussain Escalona MD smoking status Never smoker Jayln Ramos alcohol use no Hussain marc MD [...] Management Plan continue current therapy Maggie Connor [facility] HRA, CV Assess/Plan, Angina (inactive) Management Plan continue current therapy, antianginal therapy Hussain Escalona MD HRA, CV Assess/Plan, Angina (inactive) Management Plan continue current therapy Hussain Escalona MD HRA, CV Assess/Plan, Angina (inactive) Management Plan continue current therapy Hussain Escalona MD HRA, CV Assess/Plan, Angina (inactive) Management Plan continue current therapy uHssain Escalona MD HRA, CV Assess/Plan, Angina (inactive) [...] type Claudette fofana ID [employer] MEDICARE Medicare [id number] [facility] Medicaid 0 [id number] ADVANCE DIRECTIVES Name Date DISCUSSED - NO DECISION MADE TREATMENT PLAN Date Name Performer [id number],C, H er updated medication list for this problem includes: Entresto 24-26 Mg Tablet (Sacubitril-valsartan) ..... Take 1 tablet by mouth twice a day Jardiance 25 Mg Tablet (Empagliflozin) Aspirin 81 Mg Tablet,delayed Release (dr/ec) (Aspirin) ..... Take 1 tablet by mouth every day Metformin 1,000 Mg Tablet (Metformin) Hussain Escalona MD [id number],C,L IPID EANEL C HOLESTEROL 101 L 140 [...] by mouth twice daily Hussain Escalona MD [id number],C, N o LISHA with current CPAP treatment. Had home sleep study done on CPAP. Has sleep issues. The patient is using CPAP on a regular basis. The patient has been benefiting from therapy and should continue use. January 10, 2023 S fadi she has lost substantial weight, currently not on CPAP Hussain Escalona MD [id number],C, P atient with EF of 20%. ICD [...] EF 68% on 01/07/22 Hussain Escalona MD [id number],C, M itral Valve: T he mitral valve is normal in appearance and function. Mild mitral valve regurgitation N oted on echo from 01/07January 10, 2023 E CHO done in 2021, needs to have done in 2022 to evaluate mitral valve. Hussain Escalona MD [id number],C, R educed her Bumex twice a week. She may need additional sodium. Continue with Bumex twice a week dizziness has improved Hussain Escalona MD [id number],S, R educed her Bumex twice a week. She may need additional sodium. Hussain Escalona MD [id number],C, Echo, [facility] N ormal left ventricular size. Mild concentric [...] pulmonary hypertension. RPM monitor Hussain Escalona MD [id number],C, t ry dilt 30 q8 and then cd 120 if improved and tolerated Hussain Escalona MD [id number],C, Negative arterial study. Sees podiatry. s he had 3rd toe right foot amputated she may have PAD causing woulnd healing issues w e can do an angio and eval for occlusive PAD however she may have microvascular disease whcih may be inhibiting wound healing c an check with PODIATRY if angio is something they are interested in geting done Hussain Escalona MD [id number],C,n o new issues p tommy on getting back injections d id ok wiht podiatry surgery Hussain Escalona MD [id number],C, D APT PLAVIX WAS HELD FOR EVALUATING IF HER FATIGUE WIOULD IMPROVE AND DID NOT CHANGE SO WILL RESUME December 05, 2021 b ack on asa plavix February 05, 2022 Currently on ASA/Brillinta for recent stent placement March 29, 2022 R emains on ASA/Brillinta no bleeding issues. Had ISR for LAD stent Hussain Escalona MD [id number],S, H er updated medication list for this problem includes: Atorvastatin 80 Mg Tablet (Atorvastatin) ..... Take 1 tablet by mouth once a day Vascepa 1 Gram Capsule (Icosapent ethyl) ..... Take 2 capsules by mouth twice daily Hussain Escalona MD [id number],S, D APT PLAVIX WAS HELD FOR EVALUATING IF HER FATIGUE WIOULD IMPROVE AND DID NOT CHANGE SO WILL RESUME December 05, 2021 b ack on asa plavix February 05, 2022 Currently on ASA/Brillinta for recent stent placement March 29, 2022 R emains on ASA/Brillinta no bleeding issues. Had ISR for LAD stent Hussain Escalona MD [id number],C, o n ozempic has lost close to 50 pounds on [place] Hussain Escalona MD [id number],C, P atient with EF of 20%. ICD [...] EF 68% on 01/07/22 Hussain Escalona MD [id number],C, M itral Valve: T he mitral valve is normal in appearance and function. Mild mitral valve regurgitation N oted on echo from 01/07 Hussain Escalona MD [id number],S, P atient with EF of 20%. ICD [...] Jardiance and Entresto.Check labs. Hussain Escalona MD [id number],S, Echo, [facility] N ormal left ventricular size. Mild concentric [...] pulmonary hypertension. RPM monitor Hussain Escalona MD [id number],C,I mprovement of SOB, continue CHF med rx Hussain Escalona MD [id number],C, P atient with EF of 20%. ICD in place. Concern that worsening CHF/CMP d/t arrythmia or frequent PVCs will quantify with 24 hour monitor. She will continue medication therapy as noted above. February 05, 2022 W ill not be able to afford Kerendia, switched Lasix to Bumex bring her back in 1 week. Continue with Jardiance and Entresto. Hussain Escalona MD [id number],S,M itral Valve: T he mitral valve is normal in appearance and function. Mild mitral valve regurgitation N oted on echo from 01/07 Hussain Escalona MD [id number],C, D APT PLAVIX WAS HELD FOR EVALUATING IF HER FATIGUE WIOULD IMPROVE AND DID NOT CHANGE SO WILL RESUME December 05, 2021 b ack on asa plavix February 05, 2022 C urrently on ASA/Brillinta for recent stent placement Hussain Escalona MD [id number],C, T he following medications were removed from [...] (01/18/2021) HDL: 41 (01/18/2021) Hussain Escalona MD [id number],W,P atient with EF of 20%. ICD in place. Concern that worsening CHF/CMP d/t arrythmia or frequent PVCs will quantify with 24 hour monitor. She will continue medication therapy as noted above. Maggie Connor [facility] [id number],W,P atient presents with bilateral pitting edema R>L, in setting of volume overload. Discussed with Dr. Obando and low likelihood for DVT as on aspirin and brilinta. Most likely r/t volume overload. We will do venous doppler however, for further evaluation. Maggie Connor [facility] [id number],W,P teresa has acute systolic HF EF of [...] tablet under tongue as needed Maggie Connor [facility] [id number],S,P teresa has known history of CAD with [...] DR. Obando. T-wave abnormality/changes most likely post CO. We will adjust medications today with increase in BB dose. She will f/u in 2 weeks or sooner if needed. Encouraged patient if worsening or persistent symptoms to go to ER Maggie Connor [facility] [id number],S,t ry dilt 30 q8 and then cd 120 if improved and tolerated Hussain Escalona MD [id number],S, D APT PLAVIX WAS HELD FOR EVALUATING IF HER FATIGUE WIOULD IMPROVE AND DID NOT CHANGE SO WILL RESUME December 05, 2021 b ack on asa plavix Hussain Escalona MD [id number],C, Her updated medication list for this problem includes: Vascepa 1 Gram Capsule (Icosapent ethyl) Atorvastatin 40 Mg Tablet (Atorvastatin) okay to hold lipitor for a month to see how you feel b ack on chol med December 05, 2021 Hussain Escalona MD [id number],C, N o LISHA with current CPAP treatment. Had home sleep study done on CPAP. Has sleep issues. The patient is using CPAP on a regular basis. The patient has been benefiting from therapy and should continue use. Hussain Escalona MD [id number],C, Negative arterial study. Sees podiatry. Will obtain a sensilase. Hussain Escalona MD [id number],S,on ozempic cox s lost 30 pounds Hussain Escalona MD [id number],C, P zakia to implant ILR. Reviewed pros and cons. She is agreeable in having it done. May be missing arrhythmia on tele monitor. May 05, 2019 Sinus PVCs on ILR. J deneen 2021 g etting palps will add dilt 30 q8 and seehow she does then increaset to dilt cd 120 qd Hussain Escalona MD [id number],C, N o LISHA with current CPAP treatment. Had home sleep study done on CPAP. Has sleep issues. The patient is using CPAP on a regular basis. The patient has been benefiting from therapy and should continue use. Hussain Escalona MD [id number],S, Hussain Escalona MD [id number],C, 0 12/15/2017 Successful revascularization using the 3.25 x 15 mm Myrna Xience drug-eluting stent 3.25 x 15 mm Myrna Xience. LAD Hussain Escalona MD [id number],S, Negative arterial study. Sees podiatry. Will obtain a sensilase. Hussain Escalona MD [id number],C, S uccessful AV node slow pathway ablation on 11/25/2019 R emains on January 17, 2021 D evice check recently demonstrated in December episodes of SVT, reviewed with her, regarding this she does not have enough episodes to warrant repeat of ablation procedure. August 22, 2021 r are intermittent palpitaions Hussain Escalona MD [id number],C,H ad covid 2 months ago. She was vaccinated, no booster yet. uHssain Escalona MD [id number],S,A 1c is 9. Check sensilase for PAD Hussain Escalona MD [id number],C, Negative arterial study. Hussain Escalona MD [id number],C, N o LISHA with current CPAP treatment. Had home sleep study done on CPAP. Has sleep issues. The patient is using CPAP on a regular basis. The patient has been benefiting from therapy and should continue use. Hussain Escalona MD [id number],C, v accinated Hussain Escalona MD [id number],S,S he needs to be seen by an [...] 1,000 Mg Tablet (Metformin) Hussain Escalona MD [id number],C,T SH was okay W il checke thryodi levels H er updated medication list for this problem includes: Levo-t 100 Mcg Tablet (Levothyroxine) ..... Take 1 once a day Hussain Escalona MD [id number],S,D iabeteic nerve conduction study was performed, Dr [...] 1,000 Mg Tablet (Metformin) Hussain Escalona MD [id number],C, D APT PLAVIX WAS HELD FOR EVALUATING IF HER FATIGUE WIOULD IMPROVE AND DID NOT CHANGE SO WILL RESUME Hussain Escalona MD [id number],C, v accinated Hussain Escalona MD [id number],C, 0 12/15/2017 Successful revascularization using the 3.25 x 15 mm Myrna Xience drug-eluting stent 3.25 x 15 mm Myrna Xience. LAD Hussain Escalona MD [id number],C, A ICD per SK O n Toprol XL Hussain Escalona MD [id number],C, N o LISHA while using CPAP based [...] W ill review bloodwork Hussain Escalona MD [id number],C, S uccessful AV node slow pathway ablation on 11/25/2019 R emains on BB January 17, 2021 D evice check recently demonstrated in December episodes of SVT, reviewed with her, regarding this she does not have enough episodes to warrant repeat of ablation procedure. Hussain Escalona MD [id number],C,W il checke thryodi levels H er updated medication list for this problem includes: Levo-t 100 Mcg Tablet (Levothyroxine) ..... Take 1 once a day Hussain Escalona MD [id number],S,o lan to hold lipitor for a month to see how you feel Hussain Escalona MD [id number],C,m anaged by pcp H er updated medication list for this problem includes: Levo-t 100 Mcg Oral Tablet (Levothyroxine sodium) ..... 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 Hussain Escalona MD [id number],C, 0 12/15/2017 Successful revascularization using the 3.25 x 15 mm Myrna Xience drug-eluting stent 3.25 x 15 mm Myrna Xience. LAD Hussain Escalona MD [id number],C, A ICD per SK Hussain Escalona MD [id number],C, Negative arterial study. Hussain Escalona MD [id number],S,vaccinated Sa tyree Escalona MD Cardiology:Needs pre op [...] DR. Obando. T-wave abnormality/changes most likely post CO. We will adjust medications today with increase [...] DR. Obando. T-wave abnormality/changes most likely post CO. We will adjust medications today with increase in BB dose. She will f/u in 2 weeks or sooner if needed. Encouraged patient if worsening or persistent symptoms to go to ER May 02, 2023 O lan to swich her to lower dose of brilinta 60mg BID since she has completed 12 months of dapt uHssain Escalona MD Cardiology: H er updated medication [...] additional sodium. Hussain Escalona MD Cardiology: Echo, [facility] N ormal left ventricular size. Mild concentric [...] labs. Hussain Escalona MD Cardiology:01/07 Echo , [facility] N ormal left ventricular size. Mild concentric [...] medication therapy as noted above. Maggie Connor [facility] Cardiology:Patient p resents with bilateral pitting edema R>L, in setting of volume overload. Discussed with Dr. Obando and low likelihood for DVT as on aspirin and brilinta. Most likely r/t volume overload. We will do venous doppler however, for further evaluation. Maggie Bernsteinjaida [facility] Cardiology:Patient h as acute systolic HF [...] tablet under tongue as needed Maggie Nikolas [facility] Cardiology:Patient h as known history of [...] DR. Obando. T-wave abnormality/changes most likely post CO. We will adjust medications today with increase in BB dose. She will f/u in 2 weeks or sooner if needed. Encouraged patient if worsening or persistent symptoms to go to ER [facility] Cardiology:try dilt 30 q8 and then cd 120 if improved and tolerated Hussain Escaloan MD Cardiology: D APT PLAVIX WAS HELD [...] function Orders: Shane de anda No Charge (CPT-41994) Ponce Garcia Cardiology: B P today: 130/93 [...] has been given to the patient. [email or web address] May be Appropriate I CD for SECONDARY [...] has been given to the patient. [email or web address] May be Appropriate I CD for SECONDARY [...] - [facility] (*) 9 9214 MOD Complex (CPT-90681) [facility]- schedule ICD : H [...] Hour (Metoprolol succinate) ..... One tab daily [facility] TeleHealth: H er updated medication list for [...] Hour (Metoprolol succinate) ..... One tab daily [facility] TeleHealth: nonsustained VT & sustained SVT C [...] Giuseppe Stan Cardiology: Negative arterial study. Hussain Esaclona MD Cardiology: H er updated medication list [...] DIFF/PLT) (6399) C OMPREHENSIVE METABOLIC PANEL, W/EGFR (80041) L IPID PANEL (7600) P ROTHROMBIN TIME WITH INR (8847) P artial Thromboplastin Time, Activated (763) T HYROID PANEL (9494) 9 9215 HIGH Complex (CPT-88114) C omplete Echo (CPT-87818) A BLATION w/ Anesthesia (*) C T Cardiac with contrast (Pre-Ablation) (CPT-23371) Her updated medication list for this problem [...] plan. O rders: C BC (INCLUDES DIFF/PLT) (1541) C OMPREHENSIVE METABOLIC PANEL, W/EGFR (40060) L IPID PANEL (1490) P ROTHROMBIN TIME WITH INR (8847) P artial Thromboplastin Time, Activated (763) T HYROID PANEL (4020) 9 9215 HIGH Complex (CPT-55172) C omplete Echo (CPT-91297) A BLATION w/ Anesthesia (*) C T Cardiac with contrast (Pre-Ablation) (CPT-93546) Her updated medication list for this problem [...] ago. Will repeat since she had an CO and has snoring. July 21, 2019 F [...] and should continue use. Hussain Escalona MD Cardiology:[facility] sympt oms will get cath done [...] MD Cardiology follow up :INTERVENTION: 12/15/17 at [facility] 1 . Lesion attempted is proximal LAD. 2 . Guiding catheter, 6-[place] CLS 3.5. 3 . Guidewire, 0.014 [employer]. [...] ago. Will repeat since she had an CO and has snoring. Hussain Escalona MD Cardiology [place]:Likely due to recent CO. Check sleep study and PFTs. Hussain Escalona [...] one every 12 hours Orders: Filiberto DUMONT (CPT-26326) Hussain Escalona MD Cardiology New Pat[place]:Followed [...] W/EGFR CBC (INCLUDES DIFF/P LT) DLCO - 38316 FRC - 85005 FVC - 03004 Sleep Study Home THYROID PANEL WITH T [...] minute walk test Ambulatory Oximetry DLCO - 93925 FRC - 27911 FVC - 79120 Mobile Cardiac Tele Sleep Study Home Complete [...] MD compl eted FVC / MVV - 67686 Petra tejada MD completed BLOOD COUNT HEMOGLOBIN Petra martinez MD completed FRC - 93164 Petra busch MD completed SpO2 w/o 6min walk/titration Petra Tobar MD completed DLCO - 04065 Petra busch MD completed EKG Petra busch [...] walk/titration Hussain Escalona MD completed FRC - 15103 Hussain Escalona MD comp leted DLCO - 07322 Hussain Escalona MD com pleted EKG Hussain Escalona MD compl eted
--- OUTSIDE RECORDS SUMMARY | 2024-06-19 21:26 | XMS_ITS ---
Author Organization [facility] Address [address] [place] [address] Phone Care Team Providers Care Inspector [employer] Name Role Phone EUFEMIA GRIMES, DENNISE Vita Unavailable [phone] CAMPOS WHEELER MD Primary Care Provider [phone] Problems Includes: Active, inactive, and resolved Problems All Visits Onset Date Resolved Date Provider Condition S tatus Coronary Artery Disease Unknown JANAE Lynn PELON MEDICARE COM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, FRAME OPERATOR-BC Active Last Documented On 3 10:16AM ; [facility] Diabetes Mellitus Unknown JANAE Shane PELON APR N-FPA, FRAME OPERATOR-BC Active Last Documented On 3 10:18AM ; [facility] Hypothyroidism Unknown JANAE Lynn PELON MEDICARE COMPLIANCE AUDITOR-F PA, FRAME OPERATOR-BC Active Last Documented On 3 10:18AM ; [facility] Plan of Treatment Referrals To Diagnosis Pain Management [facility] - [address] [place] [id number] - Spinal stenosis, lumbar region with neurogenic claudication Note: Consent for bilateral L4-5 transforaminal epidural.Hold Plavix X7 days prior to procedure Last Documented On 3 3:50PM ; [facility] Pain Management [facility] - [address] [place] [address] - Spinal stenosis, lumbar region with neurogenic claudication Note: consent for right L3-4 , L5-S1 transforaminal epiduralschedule in 6 weeks when done with IV antibiotics Last Documented On 3 10:08AM ; [facility] Neurosurgeon RAHUL MERLOS MD Spinal steno sis, lumbar region with neurogenic claudication Last Documented On 3 3:21PM ; [facility] Education and Decision Aids were provided during visit for: Pill Count: seven TYLENOL #3 Last Documented On 4 1:36PM ; [facility] Pill Count: three TYLENOL #3 Last Documented On 3 9:55AM ; [facility] Pill Count: three TYLENOL #3 -PT STATES SHE HAS #6 AT HOME Last Documented On 3 10:26AM ; [facility] Pill Count: 27 TYLENOL #3 Last Documented On 3 9:19AM ; [facility] Pill Count: 27 TYLENOL #3 Last Documented On 3 8:56AM ; [facility] Pill Count: 13 TYLENOL #3, S TOPPED TAKING ON 07/05/22, PT WAS GIVEN RX FOR HYDROCOODNE FOR AMPUTATION OF RIGHT MIDDLE DIGIT TOE FOR BONE INFECTION Last Documented On 3 11:04AM ; [facility] Pill Count: one Acetaminophe n Codeine: Appropriate Last Documented On 3 1:26PM ; [facility] Pill Count: TYLENOL #3 Last Documented On 2 3:14PM ; [facility] Pill Count: Patient did not bring pain medication to appointment for pill count, per policy. Advised in order to continue to safely prescribe opioids, medication must be brought to each appointment. PT STATES SHE HAS #16 PILLS AT HOME Last Documented On 2 3:14PM ; [facility] Pill Count: 25 TYLENOL #3 Last Documented On 2 2:12PM ; [facility] Pill Count: 0 TYLENOL #3 Last Documented On 2 4:22PM ; [facility] Pill Count: TYLENOL #3 Last Documented On 2 9:55AM ; [facility] Pill Count: Patient did not bring pain medication to appointment for pill count, per policy. Advised in order to continue to safely prescribe opioids, medication must be brought to each appointment. PT STATES SHE ONLY HAD #2 LEFT Last Documented On 2 9:55AM ; [facility] Pill Count: four TYLENOL #3 Last Documented On 2 1:39PM ; [facility] Pill Count: Patient did not bring pain medication to appointment for pill count, per policy. Advised in order to continue to safely prescribe opioids, medication must be brought to each appointment Last Documented On 2 1:39PM ; [facility] Assessments Includes: Assessments for all patient encounters Findings Encounter Date Bulging lumbar disc PAIN MANAGEMENT [facility] Last Documented On 4 9:10AM ; [facility] Chronic pain syndrome PAIN MANAGEMENT FO LLOW UP with DENNISE L EUFEMIA ANP-BC 10/07/2023 Last Documented On 4 9:10AM ; [facility] Diabetic polyneuropathy PAIN MANAGEMENT FOLLOW UP with DENNISE L EUFEMIA ANP-BC 10/07/2023 Last Documented On 4 9:10AM ; [facility] FCI use of opiate analgesic PAIN M ANAGEMENT FOLLOW UP with DENNISE L EUFEMIA ANP- 10/07/2023 Last Documented On 4 9:10AM ; [facility] Lumbar spondylosis with radiculopathy PA IN MANAGEMENT FOLLOW UP with DENNISE L EUFEMIA ANP-BC 10/07/2023 Last Documented On 4 9:10AM ; [facility] Lumbar stenosis with neuroge lenin claudication PAIN MANAGEMENT FOLLOW UP with DENNISE L EUFEMIA ANP-BC 10/07/2023 Last Documented On 4 9:10AM ; [facility] Myalgia PAIN MANAGEMENT FOLLOW UP with T GREGORY L EUFEMIA ANP-BC 10/07/2023 Last Documented On 4 9:10AM ; [facility] Bulging lumbar disc PAIN MANAGEMENT FOLLOW UP wi th DENNISE L EUFEMIA ANP- 03/27/2023 Last Documented On 3 10:20AM ; [facility] Chronic pain syndrome PAIN MANAGEMENT FO LLOW UP with DENNISE L EUFEMIA ANP-BC 03/27/2023 Last Documented On 3 10:20AM ; [facility] Diabetic polyneuropathy PAIN MANAGEMENT FOLLOW UP with DENNISE L EUFEMIA ANP-BC 03/27/2023 Last Documented On 3 10:20AM ; [facility] salvage determiner use of opiate analgesic PAIN M ANAGEMENT FOLLOW UP with DENNISE L EUFEMIA ANP-BC 03/27/2023 Last Documented On 3 10:20AM ; [facility] Lumbar spondylosis with radiculopathy PA IN MANAGEMENT FOLLOW UP with DENNISE L EUFEMIA ANP-BC 03/27/2023 Last Documented On 3 10:20AM ; [facility] Lumbar stenosis with neuroge lenin claudication PAIN MANAGEMENT FOLLOW UP with DENNISE L EUFEMIA ANP-BC 03/27/2023 Last Documented On 3 10:20AM ; [facility] Myalgia PAIN MANAGEMENT FOLLOW UP with T GREGORY L EUFEMIA ANP-BC 03/27/2023 Last Documented On 3 10:20AM ; [facility] Bulging lumbar disc PAIN MANAGEMENT FOLLOW UP wi th DENNISE L EUFEMIA ANP-BC 12/30/2022 Last Documented On 3 12:49PM ; [facility] Cervical radiculopathy PAIN MANAGEMENT F OLLOW UP with DENNISE L EUFEMIA ANP-BC 12/30/2022 Last Documented On 3 12:49PM ; [facility] Cervical spondylosis with radiculopathy PAIN MANAGEMENT FOLLOW UP with DENNISE L EUFEMIA ANP-BC 12/30/2022 Last Documented On 3 12:49PM ; [facility] Chronic pain syndrome PAIN MANAGEMENT FO LLOW UP with DENNISE L EUFEMIA ANP-BC 12/30/2022 Last Documented On 3 12:49PM ; [facility] Diabetic polyneuropathy PAIN MANAGEMENT FOLLOW UP with DENNISE L EUFEMIA ANP-BC 12/30/2022 Last Documented On 3 12:49PM ; [facility] FCI use of opiate analgesic PAIN M ANAGEMENT FOLLOW UP with DENNISE L EUFEMIA ANP-BC 12/30/2022 Last Documented On 3 12:49PM ; [facility] Lumbar spondylosis with radiculopathy PA IN MANAGEMENT FOLLOW UP with DENNISE L EUFEMIA ANP-BC 12/30/2022 Last Documented On 3 12:49PM ; [facility] Lumbar stenosis with neuroge lenin claudication PAIN MANAGEMENT FOLLOW UP with DENNISE L EUFEMIA ANP-BC 12/30/2022 Last Documented On 3 12:49PM ; [facility] Myalgia PAIN MANAGEMENT FOLLOW UP with T GREGORY L EUFEMIA ANP-BC 12/30/2022 Last Documented On 3 12:49PM ; [facility] Bulging lumbar disc PAIN MANAGEMENT FOLLOW UP wi th DENNISE L EUFEMIA ANP-BC 10/31/2022 Last Documented On 3 9:56AM ; [facility] Cervical radiculopathy PAIN MANAGEMENT F OLLOW UP with DENNISE L EUFEMIA ANP-BC 10/31/2022 Last Documented On 3 9:56AM ; [facility] Cervical spondylosis with radiculopathy PAIN MANAGEMENT FOLLOW UP with DENNISE L EUFEMIA ANP-BC 10/31/2022 Last Documented On 3 9:56AM ; [facility] Chronic pain syndrome PAIN MANAGEMENT FO LLOW UP with DENNISE L EUFEMIA ANP-BC 10/31/2022 Last Documented On 3 9:56AM ; [facility] Diabetic polyneuropathy PAIN MANAGEMENT FOLLOW UP with DENNISE L EUFEMIA ANP-BC 10/31/2022 Last Documented On 3 9:56AM ; [facility] FCI use of opiate analgesic PAIN M ANAGEMENT FOLLOW UP with DENNISE L EUFEMIA ANP-BC 10/31/2022 Last Documented On 3 9:56AM ; [facility] Lumbar spondylosis with radiculopathy PA IN MANAGEMENT FOLLOW UP with DENNISE L EUFEMIA ANP-BC 10/31/2022 Last Documented On 3 9:56AM ; [facility] Lumbar stenosis with neuroge lenin claudication PAIN MANAGEMENT FOLLOW UP with DENNISE L EUFEMIA ANP-BC 10/31/2022 Last Documented On 3 9:56AM ; [facility] Myalgia PAIN MANAGEMENT FOLLOW UP with T GREGORY L EUFEMIA ANP-BC 10/31/2022 Last Documented On 3 9:56AM ; [facility] Bulging lumbar disc PAIN MANAGEMENT FOLLOW UP wi th DENNISE L EUFEMIA ANP-BC 09/03/2022 Last Documented On 3 5:37PM ; [facility] Cervical radiculopathy PAIN MANAGEMENT F OLLOW UP with DENNISE L EUFEMIA ANP-BC 09/03/2022 Last Documented On 3 5:37PM ; [facility] Cervical spondylosis with radiculopathy PAIN MANAGEMENT FOLLOW UP with DENNISE L EUFEMIA ANP-BC 09/03/2022 Last Documented On 3 5:37PM ; [facility] Chronic pain syndrome PAIN MANAGEMENT FO LLOW UP with DENNISE L EUFEMIA ANP-BC 09/03/2022 Last Documented On 3 5:37PM ; [facility] Diabetic polyneuropathy PAIN MANAGEMENT FOLLOW UP with DENNISE L EUFEMIA ANP-BC 09/03/2022 Last Documented On 3 5:37PM ; [facility] FCI use of opiate analgesic PAIN M ANAGEMENT FOLLOW UP with DENNISE L EUFEMIA ANP-BC 09/03/2022 Last Documented On 3 5:37PM ; [facility] Lumbar spondylosis with radiculopathy PA IN MANAGEMENT FOLLOW UP with DENNISE L EUFEMIA ANP-BC 09/03/2022 Last Documented On 3 5:37PM ; [facility] Lumbar stenosis with neuroge lenin claudication PAIN MANAGEMENT FOLLOW UP with DENNISE L EUFEMIA ANP-BC 09/03/2022 Last Documented On 3 5:37PM ; [facility] Myalgia PAIN MANAGEMENT FOLLOW UP with T GREGORY L EUFEMIA ANP-BC 09/03/2022 Last Documented On 3 5:37PM ; [facility] Bulging lumbar disc PAIN MANAGEMENT FOLLOW UP wi th DENNISE L EUFEMIA ANP-BC 07/26/2022 Last Documented On 3 11:48AM ; [facility] Cervical radiculopathy PAIN MANAGEMENT F OLLOW UP with DENNISE L EUFEMIA ANP-BC 07/26/2022 Last Documented On 3 11:48AM ; [facility] Cervical spondylosis with radiculopathy PAIN MANAGEMENT FOLLOW UP with DENNISE L EUFEMIA ANP-BC 07/26/2022 Last Documented On 3 11:48AM ; [facility] Chronic pain syndrome PAIN MANAGEMENT FO LLOW UP with DENNISE L EUFEMIA ANP-BC 07/26/2022 Last Documented On 3 11:48AM ; [facility] Diabetic polyneuropathy PAIN MANAGEMENT FOLLOW UP with DENNISE L EUFEMIA ANP-BC 07/26/2022 Last Documented On 3 11:48AM ; [facility] salvage determiner use of opiate analgesic PAIN M ANAGEMENT FOLLOW UP with DENNISE L EUFEMIA [facility] 07/26/2022 Last Documented On 3 11:48AM ; [facility] Lumbar spondylosis with radiculopathy PA IN MANAGEMENT FOLLOW UP with DENNISE L EUFEMIA ANP-BC 07/26/2022 Last Documented On 3 11:48AM ; [facility] Lumbar stenosis with neuroge lenin claudication PAIN MANAGEMENT FOLLOW UP with DENNISE L EUFEMIA ANP-BC 07/26/2022 Last Documented On 3 11:48AM ; [facility] Myalgia PAIN MANAGEMENT FOLLOW UP with T GREGORY Vita EUFEMIA [facility] 07/26/2022 Last Documented On 3 11:48AM ; [facility] Bulging lumbar disc PAIN MANAGEMENT FOLL OW UP with JANAE HENNING [facility]- 05/23/2022 Last Documented On 3 1:28PM ; [facility] Cervicalgia PAIN MANAGEMENT FOLLOW UP with Ofelia BIRD MEDICARE COMPLIANCE AUDITOR-FPBenjamin, [facility]-BC 05/23/2022 Last Documented On 3 1:28PM ; [facility] Chronic pain syndrome PAIN MANAGEMENT FO LLOW UP with JANAE Lynn PELON MEDICARE COM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, FRAME OPERATOR-BC 05/23/2022 Last Documented On 3 1:28PM ; [facility] Diabetic polyneuropathy PAIN MANAGEMENT FOLLOW UP with JANAE Lynn PELON MEDICARE COM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, FRAME OPERATOR-BC 05/23/2022 Last Documented On 3 1:28PM ; [facility] salvage determiner use of opiate analgesic PAIN M ANAGEMENT FOLLOW UP with JANAE Lynn PELON MEDICARE COM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, FRAME OPERATOR-BC 05/23/2022 Last Documented On 3 1:28PM ; [facility] Lumbar spondylosis with radiculopathy PA IN MANAGEMENT FOLLOW UP with JANAE Lynn PELON MEDICARE COM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, FRAME OPERATOR-BC 05/23/2022 Last Documented On 3 1:28PM ; [facility] Lumbar stenosis with neuroge lenin claudication PAIN MANAGEMENT FOLLOW UP with JANAE Lynn PELON MEDICARE COM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, FRAME OPERATOR-BC 05/23/2022 Last Documented On 3 1:28PM ; [facility] Myalgia PAIN MANAGEMENT FOLLOW UP with Ofelia Lynn PELON MEDICARE COM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, FRAME OPERATOR-BC 05/23/2022 Last Documented On 3 1:28PM ; [facility] Bulging lumbar disc PAIN MANAGEMENT FOLLOW UP wi th DENNISE L EUFEMIA ANP-BC 03/14/2022 Last Documented On 2 3:37PM ; [facility] Chronic pain syndrome PAIN MANAGEMENT FO LLOW UP with DENNISE L EUFEMIA ANP-BC 03/14/2022 Last Documented On 2 3:37PM ; [facility] Diabetic polyneuropathy PAIN MANAGEMENT FOLLOW UP with DENNISE L EUFEMIA ANP-BC 03/14/2022 Last Documented On 2 3:37PM ; [facility] FCI use of opiate analgesic PAIN M ANAGEMENT FOLLOW UP with DENNISE L EUFEMIA ANP-BC 03/14/2022 Last Documented On 2 3:37PM ; [facility] Lumbar spondylosis with radiculopathy PA IN MANAGEMENT FOLLOW UP with DENNISE L EUFEMIA ANP-BC 03/14/2022 Last Documented On 2 3:37PM ; [facility] Lumbar stenosis with neuroge lenin claudication PAIN MANAGEMENT FOLLOW UP with DENNISE L EUFEMIA ANP-BC 03/14/2022 Last Documented On 2 3:37PM ; [facility] Myalgia PAIN MANAGEMENT FOLLOW UP with T GREGORY L EUFEMIA ANP-BC 03/14/2022 Last Documented On 2 3:37PM ; [facility] Bulging lumbar disc PAIN MANAGEMENT FOLLOW UP wi th DENNISE L EUFEMIA ANP-BC 12/24/2021 Last Documented On 2 3:03PM ; [facility] Chronic pain syndrome PAIN MANAGEMENT FO LLOW UP with DENNISE L EUFEMIA ANP-BC 12/24/2021 Last Documented On 2 3:03PM ; [facility] Diabetic polyneuropathy PAIN MANAGEMENT FOLLOW UP with DENNISE L EUFEMIA ANP-BC 12/24/2021 Last Documented On 2 3:03PM ; [facility] salvage determiner use of opiate analgesic PAIN M ANAGEMENT FOLLOW UP with DENNISE L EUFEMIA ANP-BC 12/24/2021 Last Documented On 2 3:03PM ; [facility] Lumbar spondylosis with radiculopathy PA IN MANAGEMENT FOLLOW UP with DENNISE L EUFEMIA ANP-BC 12/24/2021 Last Documented On 2 3:03PM ; [facility] Lumbar stenosis with neuroge lenin claudication PAIN MANAGEMENT FOLLOW UP with DENNISE L EUFEMIA ANP-BC 12/24/2021 Last Documented On 2 3:03PM ; [facility] Myalgia PAIN MANAGEMENT FOLLOW UP with T GREGORY L EUFEMIA ANP-BC 12/24/2021 Last Documented On 2 3:03PM ; [facility] Chronic pain syndrome PAIN MANAGEMENT FO LLOW UP with DENNISE L EUFEMIA ANP-BC 11/05/2021 Last Documented On 2 5:36PM ; [facility] Diabetic polyneuropathy PAIN MANAGEMENT FOLLOW UP with DENNISE L EUFEMIA ANP-BC 11/05/2021 Last Documented On 2 5:36PM ; [facility] DORSALGIA PAIN MANAGEMENT FOLLOW UP with T GREGORY L EUFEMIA ANPBC 11/05/2021 Last Documented On 2 5:36PM ; [facility] FCI use of opiate analgesic PAIN M ANAGEMENT FOLLOW UP with DENNISE L EUFEMIA [facility] 11/05/2021 Last Documented On 2 5:36PM ; [facility] Lumbar spondylosis with radiculopathy PA IN MANAGEMENT [facility]21 Last Documented On 2 5:36PM ; [facility] Myalgia PAIN MANAGEMENT FOLLOW UP with T GREGORY L EUFEMIA ANPBC 11/05/2021 Last Documented On 2 5:36PM ; [facility] Chronic pain syndrome PAIN MANAGEMENT FO LLOW UP [facility]21 Last Documented On 2 11:46AM ; [facility] Diabetic polyneuropathy PAIN MANAGEMENT FOLLOW [facility] Last Documented On 2 11:46AM ; [facility] DORSALGIA PAIN MANAGEMENT FOLLOW UP with T GREGORY L EUFEMIA [facility] 09/20/2021 Last Documented On 2 11:46AM ; [facility] FCI use of opiate analgesic PAIN M ANAGEMENT FOLLOW UP with DENNISE L EUFEMIA [facility] 09/20/2021 Last Documented On 2 11:46AM ; [facility] Lumbar spondylosis without m yelopathy or radiculopathy PAIN MANAGEMENT FOLLOW UP with DENNISE L EUFEMIA ANP- 09/20/2021 Last Documented On 2 11:46AM ; [facility] Myalgia PAIN MANAGEMENT FOLLOW UP with T GREGORY L EUFEMIA ANP-BC 09/20/2021 Last Documented On 2 11:46AM ; [facility] Chronic pain syndrome PAIN MANAGEMENT NE W CONSULT with DENNISE L EUFEMIA [facility] 08/21/2021 Last Documented On 2 4:35PM ; [facility] Diabetic polyneuropathy PAIN MANAGEMENT NEW CONSULT with DENNISE ATNHONY [facility] 08/21/2021 Last Documented On 2 4:35PM ; [facility] DORSALGIA PAIN MANAGEMENT NEW CONSULT with DENNISE ANTHONY [facility] 08/21/2021 Last Documented On 2 4:35PM ; [facility] salvage determiner use of opiate analgesic PAIN M ANAGEMENT NEW CONSULT with DENNISE ANTHONY [facility] 08/21/2021 Last Documented On 2 4:35PM ; [facility] Myalgia PAIN MANAGEMENT NEW CONSULT with DENNISECHER ANTHONY [facility] 08/21/2021 Last Documented On 2 4:35PM ; [facility] Instructions Includes: Instructions for all patient encounters Education and Decision Aids were provided during visit for: Pill Count: seven TYLENOL #3 Last Documented On 4 1:36PM ; [facility] Pill Count: three TYLENOL #3 Last Documented On 3 9:55AM ; [facility] Pill Count: three TYLENOL #3 -PT STATES SHE HAS #6 AT HOME Last Documented On 3 10:26AM ; [facility] Pill Count: 27 TYLENOL #3 Last Documented On 3 9:19AM ; [facility] Pill Count: 27 TYLENOL #3 Last Documented On 3 8:56AM ; [facility] Pill Count: 13 TYLENOL #3, S TOPPED TAKING ON 07/05/22, PT WAS GIVEN RX FOR HYDROCOODNE FOR AMPUTATION OF RIGHT MIDDLE DIGIT TOE FOR BONE INFECTION Last Documented On 3 11:04AM ; [facility] Pill Count: one Acetaminophe n Codeine: Appropriate Last Documented On 3 1:26PM ; [facility] Pill Count: TYLENOL #3 Last Documented On 2 3:14PM ; [facility] Pill Count: Patient did not bring pain medication to appointment for pill count, per policy. Advised in order to continue to safely prescribe opioids, medication must be brought to each appointment. PT STATES SHE HAS #16 PILLS AT HOME Last Documented On 2 3:14PM ; [facility] Pill Count: 25 TYLENOL #3 Last Documented On 2 2:12PM ; [facility] Pill Count: 0 TYLENOL #3 Last Documented On 2 4:22PM ; [facility] Pill Count: TYLENOL #3 Last Documented On 2 9:55AM ; [facility] Pill Count: Patient did not bring pain medication to appointment for pill count, per policy. Advised in order to continue to safely prescribe opioids, medication must be brought to each appointment. PT STATES SHE ONLY HAD #2 LEFT Last Documented On 2 9:55AM ; [facility] Pill Count: four TYLENOL #3 Last Documented On 2 1:39PM ; [facility] Pill Count: Patient did not bring pain medication to appointment for pill count, per policy. Advised in order to continue to safely prescribe opioids, medication must be brought to each appointment Last Documented On 2 1:39PM ; [facility] Medical Equipment - Implanted Devices Includes: Current and historical Devices No Medical Equipment Recorded Medications Includes: Current and historical Medications Current Medications (continue as prescribed) Linzess 145 MCG Oral Capsule 11/03/2023 Provider: ISIDORO SCHMIDT Diagnosis: Constipation, un specified TAKE 1 CAPSULE BY MOUTH DAILY Last Documented On 4 1:40PM By JANAE CHAUDHRY ; [facility] tiZANidine HCl 2 MG Oral Tablet 10/24/2023 Provider: ISIDORO PEPPER Diagnosis: TAKE 1 TABLET BY MOUTH 2 TO 3 TIMES PER DAY NEEDED Last Documented On 4 10:26AM By JANAE CHAUDHRY ; [facility] Acetaminophen-Codeine 300-30 MG Oral Tablet 10/08/2023 Provider: DENNISE GRIMES Diagnosis: Spinal stenosis, lumbar region with neurogenic claudication 1 po bid prn/ max 2 per day Last Documented On 4 9:26AM By DENNISE GRIMES ; [facility] Ozempic (0.25 or 0.5 MG/DOSE ) 2 MG/3ML Subcutaneous Solution Pen-injector 10/02/2023 Provider: Diagnosis: Last Documented On 10/07/2023 1:34PM By Laura RIVERA ; [facility] Ubrelvy 100 MG Oral Tablet 09/18/2023 Provider: Diagnosis: Last Documented On 10/07/2023 1:35PM By Laura RIVERA ; [facility] Qulipta 60 MG Oral Tablet 09/11/2023 Provider: Diagnosis: Last Documented On 10/07/2023 1:34PM By Laura RIVERA ; [facility] tiZANidine HCl 2 MG Oral Tablet 08/13/2023 Provider: JANAE CALIBenjamin [facility] Diagnosis: TAKE 1 TABLET BY MOUTH 2 TO 3 TIMES PER DAY NEEDED Last Documented On 4 12:03PM By JANAE BIRD [facility] ; [facility] Gentamicin Sulfate 0.1% External Ointment 07/11/2023 Provider: JW MARIN DPM Diagnosis: Last Documented On 10/07/2023 1:33PM By Laura RIVERA ; [facility] Gabapentin 600 MG Oral Tablet 06/23/2023 Provider: DENNISE HERNANDEZ 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 TAKE 1 TABLET BY MOUTH THREE TIMES DAILY Last Documented On 4 8:40AM [facility] DULoxetine HCl 60 MG Oral Capsule Delayed Release Particles 06/23/2023 Provider: DENNISE Barnes Diagnosis: Chronic pain syn drome TAKE 1 CAPSULE BY MOUTH DAILY Last Documented On 4 8:40AM [facility] Santyl 250 UNIT/GM External Ointment 06/06/2023 Prov ider: JW MARIN DPM Diagnosis: Last Documented On 10/07/2023 1:34PM By Laura RIVERA ; [facility] Bumetanide 1 MG Oral Tablet 09/13/2022 Provider: Diagnosis: Last Documented On 3 10:28AM By Laura RIVERA ; [facility] Kerendia 20 MG Oral Tablet 03/03/2022 Provider: Diagnosis: Last Documented On 03/14/2022 3:11PM By Laura RIVERA ; [facility] Brilinta 90 MG Oral Tablet 02/19/2022 Provider: Diagnosis: Last Documented On 03/14/2022 3:12PM By Laura RIVERA ; [facility] Carvedilol 6.25 MG Oral Tablet 01/26/2022 Provider: Diagnosis: Last Documented On 03/14/2022 3:06PM By Laura RIVERA ; [facility] Entresto 24-26 MG Oral Tablet 01/25/2022 Provider: Diagnosis: Last Documented On 03/14/2022 3:13PM By Laura RIVERA ; [facility] Jardiance 25 MG Oral Tablet 09/03/2021 Provider: Diagnosis: Last Documented On 09/20/2021 9:45AM By Laura RIVERA ; [facility] Aspirin 81 MG Oral Capsule 08/21/2021 Provider: Diagnosis: Last Documented On 08/21/2021 1:34PM By Laura RIVERA ; [facility] Nitroglycerin 0.4 MG Sublingual Tablet Sublingual 09/2021 Provider: Diagnosis: Last Documented On 08/21/2021 1:36PM By Laura RIVERA ; [facility] metFORMIN HCl 1000 MG Oral Tablet 08/20/2021 Provide r: CAMPOS WHEELER MD Diagnosis: Last Documented On 08/21/2021 1:30PM By Laura RIVERA ; [facility] Levothyroxine Sodium 100 MCG Oral Tablet 08/20/2021 Provider: CAMPOS WHEELER MD Diagnosis: Last Documented On 08/21/2021 1:30PM By Laura RIVERA ; [facility] Topiramate 25 MG Oral Tablet 2021 Provider: Diagnosis: Last Documented On 08/21/2021 1:31PM By Laura RIVERA ; [facility] Atorvastatin Calcium 40 MG Oral Tablet 08/09/2021 Pr ovider: CAMPOS WHEELER MD Diagnosis: Last Documented On 08/21/2021 1:31PM By Laura RIVERA ; [facility] Past Medications on file Linzess 145 MCG Oral Capsule 10/03/2023 - 10/07/2023 Provider: DENNISE GRIMES Diagnosis: Last Documented On 10/07/2023 1:35PM By Laura RIVERA ; [facility] Linzess 145 MCG Oral Capsule 08/06/2023 - 11/03/2023 Provider: DENNISE GRIMES Diagnosis: Constipation, unspecified TAKE 1 CAPSULE BY MOUTH DAILY Last Documented On 4 1:25PM By JANAE BIRD [facility] ; [facility] Acetaminophen-Codeine 300-30 MG Oral Tablet 07/21/2023 - 10/07/2023 Provider: DENNISE GRIMES Diagnosis: Spinal stenosis, lumbar region with neurogenic claudication 1 po bid prn/ max 2 per day Last Documented On 4 9:09AM By DENNISE GRIMES ; [facility] tiZANidine HCl 2 MG Oral Tablet 07/21/2023 - 08/13/2023 Provider: DENNISE GRIMES Diagnosis: 1 po 2-3 times per day prn Last Documented On 4 11:48AM By JANAE BIRD [facility] ; [facility] Acetaminophen-Codeine 300-30 MG Oral Tablet 06/12/2023 - 07/18/2023 Provider: DENNISE GRIMES Diagnosis: Spinal stenosis, lumbar region with neurogenic claudication 1 po bid prn/ max 2 per day Last Documented On 4 10:00AM By DENNISE HERNANDEZ ; [facility] Gabapentin 600 MG Oral Tablet 05/22/2023 - 06/23/2023 Provider: DENNISE RGIMES 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 TAKE 1 TABLET BY MOUTH THREE TIMES DAILY Last Documented On 4 8:32AM By DENNISE GRIMES ; [facility] Linzess 145 MCG Oral Capsule 05/15/2023 - 08/06/2023 Provider: DENNISE GRIMES Diagnosis: Constipation, unspecified TAKE 1 CAPSULE BY MOUTH DAILY Last Documented On 4 4:47PM By DENNISE GRIMES ; [facility] Gabapentin 600 MG Oral Tablet 04/21/2023 - 05/22/2023 Provider: DENNISE GRIMES 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 TAKE 1 TABLET BY MOUTH THREE TIMES DAILY Last Documented On 4 1:32PM By DENNISE GRIMES ; [facility] Linzess 145 MCG Oral Capsule 04/13/2023 - 05/15/2023 Provider: DENNISE GRIMES Diagnosis: Constipation, unspecified TAKE 1 CAPSULE BY MOUTH DAILY Last Documented On 3 2:32PM By DENNISE GRIMES ; [facility] Acetaminophen-Codeine 300-30 MG Oral Tablet 03/27/2023 - 06/12/2023 Provider: DENNISE GRIMES Diagnosis: Spinal stenosis, lumbar region with neurogenic claudication 1 po bid prn/ max 2 per day Last Documented On 4 4:06PM By DENNISE GRIMES ; [facility] DULoxetine HCl 60 MG Oral Capsule Delayed Release Particles 03/25/2023 - 06/23/2023 Provider: DENNISE GRIMES Diagnosis: Chronic pain syn drome TAKE 1 CAPSULE BY MOUTH DAILY Last Documented On 4 8:32AM By DENNISE GRIMES ; [facility] Gabapentin 600 MG Oral Tablet 03/25/2023 - 04/21/2023 Provider: DENNISE GRIMES 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 TAKE 1 TABLET BY MOUTH THREE TIMES DAILY Last Documented On 3 12:22PM By DENNISE GRIMES ; [facility] Linzess 145 MCG Oral Capsule 03/10/2023 - 04/13/2023 Provider: DENNISE GRIMES Diagnosis: Constipation, unspecified TAKE 1 CAPSULE BY MOUTH DAILY Last Documented On 3 6:43AM By DENNISE GRIMES ; [facility] Gabapentin 600 MG Oral Tablet 02/24/2023 - 03/25/2023 Provider: JANAE BIRD [employer]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, [id number] 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 TAKE 1 TABLET BY MOUTH THREE TIMES DAILY Last Documented On 3 4:13PM By DENNISE GRIMES ; [facility] Gabapentin 600 MG Oral Tablet 01/27/2023 - 02/24/2023 Provider: DENNISE GRIMES 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 TAKE 1 TABLET BY MOUTH THREE TIMES DAILY Last Documented On 3 11:53AM By JANAE NEAL-BC ; [facility] Acetaminophen-Codeine 300-30 MG Oral Tablet 01/13/2023 - 03/27/2023 Provider: DENNISE GRIMES Diagnosis: Spondylosis w/o myelopathy or radiculopathy, lumbar region 1 po bid prn/ max 2 per day Last Documented On 3 10:12AM By DENNISE GRIMES ; [facility] tiZANidine HCl 2 MG Oral Tablet 01/13/2023 - 07/21/2023 Provider: DENNISE GRIMES Diagnosis: 1 po 2-3 times per day prn Last Documented On 4 10:03AM By DENNISE GRIMES ; [facility] DULoxetine HCl 60 MG Oral Capsule Delayed Release Particles 12/30/2022 - 03/25/2023 Provider: DENNISE GRIMES Diagnosis: Chronic pain syn drome 1 capsule daily Last Documented On 3 4:13PM By DENNISE GRIMES ; [facility] DULoxetine HCl 30 MG Oral Capsule Delayed Release Particles 12/27/2022 - 03/27/2023 Provider: DENNISE GRIMES Diagnosis: Chronic pain syn drome TAKE 1 CAPSULE BY MOUTH AT BEDTIME Last Documented On 3 10:04AM By DENNISE GRIMES ; [facility] Gabapentin 600 MG Oral Tablet 12/27/2022 - 01/27/2023 Provider: DENNISE GRIMES Diagnosis: h diabetes lary litus with diabetic polyneuropathy TAKE 1 TABLET BY MOUTH THREE TIMES DAILY Last Documented On 3 10:34AM By DENNISE GRIMES ; [facility] Acetaminophen-Codeine 300-30 MG Oral Tablet 12/02/2022 - 01/13/2023 Provider: DENNISE GRIMES Diagnosis: Spondylosis w/o myelopathy or radiculopathy, lumbar region 1 po bid prn/ max 2 per day Last Documented On 3 3:44PM By DENNISE GRIMES ; [facility] DULoxetine HCl 30 MG Oral Capsule Delayed Release Particles 11/25/2022 - 12/27/2022 Provider: DENNISE GRIMES Diagnosis: Chronic pain syn drome TAKE 1 CAPSULE BY MOUTH AT BEDTIME Last Documented On 3 10:26PM By DENNISE GRIMES ; [facility] Linzess 145 MCG Oral Capsule 11/20/2022 - 03/10/2023 Provider: DENNISE GRIMES Diagnosis: Constipation, unspecified TAKE 1 CAPSULE BY MOUTH DAILY Last Documented On 3 3:57PM By DENNISE GRIMES ; [facility] DULoxetine HCl 30 MG Oral Capsule Delayed Release Particles 10/31/2022 - 11/25/2022 Provider: DENNISE GRIMES Diagnosis: Chronic pain syn drome One tablet at bed time Last Documented On 3 1:45PM By DENNISE GRIMES ; [facility] Linzess 145 MCG Oral Capsule 10/21/2022 - 11/20/2022 Provider: DENNISE GRIMES Diagnosis: Constipation, unspecified TAKE 1 CAPSULE BY MOUTH DAILY Last Documented On 3 8:44AM By DENNISE GRIMES ; [facility] Acetaminophen-Codeine #3 300-30 MG Oral Tablet 10/08/2022 - 12/30/2022 Provider: DENNISE GRIMES Diagnosis: Other spondylosi s with radiculopathy, lumbar region 1 po bid prn, max 2 per day Last Documented On 3 10:26AM By Laura RIVERA ; [facility] Gabapentin 600 MG Oral Tablet 09/25/2022 - 12/27/2022 Provider: DENNISE GRIMES 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 TAKE 1 TABLET BY MOUTH THREE TIMES DAILY Last Documented On 3 10:31PM By DENNISE GRIMES ; [facility] cefTRIAXone Sodium 2 GM Intr avenous Solution Reconstituted 09/03/2022 - 12/30/2022 Provider: Diagnosis: Last Documented On 3 10:28AM By Laura RIVERA ; [facility] Gabapentin 600 MG Oral Tablet 08/23/2022 - 09/25/2022 Provider: DENNISE GRIMES 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 TAKE 1 TABLET BY MOUTH THREE TIMES DAILY Last Documented On 3 12:49PM By DENNISE GRIMES ; [facility] Linzess 145 MCG Oral Capsule 08/21/2022 - 10/21/2022 Provider: DENNISE GRIMES Diagnosis: Constipation, unspecified TAKE 1 CAPSULE BY MOUTH DAILY Last Documented On 3 1:23PM By DENNISE GRIMES ; [facility] Acetaminophen-Codeine #3 300-30 MG Oral Tablet 08/13/2022 - 10/07/2022 Provider: DENNISE GRIMES Diagnosis: Other spondylosi s with radiculopathy, lumbar region 1 po bid prn, max 2 per day Last Documented On 3 5:42PM By DENNISE GRIMES ; [facility] Gabapentin 600 MG Oral Tablet 07/25/2022 - 08/23/2022 Provider: DENNISE GRIMES 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 TAKE 1 TABLET BY MOUTH THREE TIMES DAILY Last Documented On 3 3:59PM By DENNISE GRIMES ; [facility] HYDROcodone-Acetaminophen 5-325 MG Oral Tablet 0 07/05/2022 - 10/31/2022 Provider: Diagnosis: Last Documented On 3 9:31AM By DENNISE GRIMES ; [facility] Linzess 145 MCG Oral Capsule 06/11/2022 - 08/21/2022 Provider: ISIDORO PEPPER Diagnosis: Constipation, unspecified TAKE 1 CAPSULE BY MOUTH DAILY Last Documented On 3 9:26AM By DENNISE GRIMES ; [facility] Acetaminophen-Codeine #3 300-30 MG Oral Tablet 05/23/2022 - 08/13/2022 Provider: ISIDORO PEPPER Diagnosis: Other spondylosi s with radiculopathy, lumbar region 1 po bid prn Last Documented On 3 4:03PM By DENNISE GRIMES ; [facility] Gabapentin 600 MG Oral Tablet 05/23/2022 - 07/25/2022 Provider: ISIDORO PEPPER 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 TAKE 1 TABLET BY MOUTH THREE TIMES DAILY Last Documented On 3 8:41AM By DENNISE GRIMES ; [facility] Bumetanide 1 MG Oral Tablet 05/23/2022 - 06/22/2022 Pr ovider: Diagnosis: Last Documented On 3 10:20AM By JANAE CHAUDHRY ; [facility] Gabapentin 600 MG Oral Tablet 04/30/2022 - 05/23/2022 Provider: DENNISE GRIMES 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 TAKE 1 TABLET BY MOUTH THREE TIMES DAILY Last Documented On 3 10:42AM By JANAE CHAUDHRY ; [facility] Acetaminophen-Codeine #3 300 -30 MG Oral Tablet 03/26/2022 - 05/23/2022 Provider: DENNISE GRIMES Diagnosis: 1 po bid prn Last Documented On 3 10:42AM By JANAE CHAUDHRY ; [facility] Linzess 145 MCG Oral Capsule 03/19/2022 - 06/11/2022 Provider: DENNISE GRIMES Diagnosis: Constipation, unspecified TAKE 1 CAPSULE BY MOUTH DAILY Last Documented On 3 2:03PM By JANAE BIRD [facility] ; [facility] Dexcom G6 Sensor Miscellaneous 03/09/2022 - 12/30/2022 Provider: Diagnosis: Last Documented On 3 10:29AM By Laura RIVERA ; [facility] Bumetanide 1 MG Oral Tablet 03/07/2022 - 05/23/2022 Pr ovider: Diagnosis: Last Documented On 3 10:20AM By JANAE BIRD [facility] ; [facility] Acetaminophen-Codeine #3 300 -30 MG Oral Tablet 02/22/2022 - 03/25/2022 Provider: DENNISE GRIMES Diagnosis: One tablet twice a day Last Documented On 2 10:39AM By DENNISE GRIMES ; [facility] Linzess 145 MCG Oral Capsule 02/19/2022 - 03/19/2022 Provider: DENNISE GRIMES Diagnosis: Constipation, unspecified TAKE 1 CAPSULE BY MOUTH DAILY Last Documented On 2 12:10PM By DENNISE GRIMES ; [facility] Pantoprazole Sodium 40 MG Or al Tablet Delayed Release 02/15/2022 - 12/30/2022 Provider: CAMPOS WHEELER MD Diagnosis: Last Documented On 3 10:29AM By Laura RIVERA ; [facility] Acetaminophen-Codeine #3 300 -30 MG Oral Tablet 01/22/2022 - 02/21/2022 Provider: DENNISE GRIMES Diagnosis: One tablet twice a day Last Documented On 2 8:24AM By DENNISE GRIMES ; [facility] Gabapentin 600 MG Oral Tablet 01/10/2022 - 04/30/2022 Provider: DENNISE GRIMES 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 TAKE 1 TABLET BY MOUTH THREE TIMES DAILY Last Documented On 2 12:44PM By DENNISE GRIMES ; [facility] Acetaminophen-Codeine #3 300-30 MG Oral Tablet 12/17/2021 - 05/23/2022 Provider: DENNISE GRIMES Diagnosis: Spondylosis w/o myelopathy or radiculopathy, lumbar region 1 po qhs prn Last Documented On 3 10:17AM By JANAE BIRD [facility] ; [facility] Linzess 145 MCG Oral Capsule 11/12/2021 - 02/19/2022 Provider: DENNISE GRIMES Diagnosis: Constipation, unspecified TAKE 1 CAPSULE BY MOUTH DAILY Last Documented On 2 5:09PM By DENNISE GRIMES ; [facility] Acetaminophen-Codeine #3 300-30 MG Oral Tablet 11/05/2021 - 12/17/2021 Provider: DENNISE GRIMES Diagnosis: Spondylosis w/o myelopathy or radiculopathy, lumbar region 1 po qhs prn Last Documented On 2 11:59AM By DENNISE GRIMES ; [facility] Gabapentin 600 MG Oral Tablet 10/17/2021 - 01/10/2022 Provider: DENNISE GRIMES 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 TAKE 1 TABLET BY MOUTH THREE TIMES DAILY Last Documented On 2 3:24PM By DENNISE GRIMES ; [facility] Linzess 145 MCG Oral Capsule 10/17/2021 - 11/12/2021 Provider: DENNISE GRIMES Diagnosis: Constipation, unspecified TAKE 1 CAPSULE BY MOUTH DAILY Last Documented On 2 8:59AM By DENNISE GRIMES ; [facility] Acetaminophen-Codeine #3 300 -30 MG Oral Tablet 10/12/2021 - 11/05/2021 Provider: DENNISE GRIMES Diagnosis: 1 po qhs prn Last Documented On 2 5:34PM By DENNISE GRIMES ; [facility] Gabapentin 600 MG Oral Tablet 09/20/2021 - 12/24/2021 Provider: DENNISE GRIMES 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 One tablet three times a day Last Documented On 12/24/2021 2:06PM By Laura RIVERA ; [facility] Linzess 145 MCG Oral Capsule 09/20/2021 - 10/17/2021 Provider: DENNISE GRIMES Diagnosis: Constipation, unspecified 1 capsule daily Last Documented On 2 1:42PM By DENNISE GRIMES ; [facility] Acetaminophen-Codeine #3 300 -30 MG Oral Tablet 09/20/2021 - 10/11/2021 Provider: DENNISE GRIMES Diagnosis: 1 po qhs prn Last Documented On 2 8:22AM By DENNISE GRIMES ; [facility] [id number] 50- 325-40 MG Oral Tablet 09/13/2021 - 03/14/2022 Provider: CAMPOS WHEELER MD Diagnosis: 1 TABLET PO BID PRN Last Documented On 03/14/2022 3:07PM By Laura RIVERA ; [facility] Acetaminophen-Codeine #3 300 -30 MG Oral Tablet 09/04/2021 - 09/20/2021 Provider: DENNISE GRIMES Diagnosis: 1 po qhs prn Last Documented On 2 10:07AM By DENNISE GRIMES ; [facility] Ozempic (0.25 or 0.5 MG/DOSE ) 2 MG/1.5ML Subcutaneous Solution Pen-injector 09/03/2021 - 03/14/2022 Provider: Diagnosis: Last Documented On 03/14/2022 3:07PM By Laura RIVERA ; [facility] tiZANidine HCl 2 MG Oral Tablet 08/20/2021 - Provider: Diagnosis: Last Documented On 3 3:45PM By DENNISE GRIMES ; [facility] Gabapentin 300 MG Oral Capsule 08/20/2021 - 12/24/2021 Provider: CAMPOS WHEELER MD Diagnosis: Last Documented On 12/24/2021 2:07PM By Laura RIVERA ; [facility] Vascepa 1 GM Oral Capsule 08/20/2021 - 10/07/2023 Prov ider: Diagnosis: Last Documented On 10/07/2023 1:35PM By Laura RIVERA ; [facility] Nortriptyline HCl 50 MG Oral Capsule 08/01/2021 - 02/17 Provider: CAMPOS WHEELER MD Diagnosis: Last Documented On 03/14/2022 3:08PM By Laura RIVERA ; [facility] Clopidogrel Bisulfate 75 MG Oral Tablet 07/26/2021 - 1 Provider: Diagnosis: Last Documented On 03/14/2022 3:09PM By Laura RIVERA ; [facility] hydroCHLOROthiazide 25 MG Oral Tablet 07/26/2021 - Provider: Diagnosis: Last Documented On 03/14/2022 3:10PM By Laura RIVERA ; [facility] Acetaminophen-Codeine #3 300 -30 MG Oral Tablet 07/26/2021 - 01/22/2022 Provider: CAMPOS WHEELER MD Diagnosis: Last Documented On 1:47PM By DENNISE ANTHONY [facility] ; [facility] Metoprolol Succinate ER 100 MG Oral Tablet Extended Release 24 Hour 06/21/2021 - 03/14/2022 Provider: Diagnosis: Last Documented On 03/14/2022 3:09PM By Laura RIVERA ; [facility] Admelog 100 UNIT/ML Subcutan eous Solution 05/23/2021 - 03/14/2022 Provider: CAMPOS WHEELER MD Diagnosis: Last Documented On 03/14/2022 3:09PM By Laura RIVERA ; [facility] Lisinopril 10 MG Oral Tablet 03/27/2021 - 03/14/2022 Kirti stringerder: Diagnosis: Last Documented On 03/14/2022 3:09PM By Laura RIVERA ; [facility] Medications Administered Includes: Administered [...] 98 Last Documented: On 10/07/2023 1:32PM ; [facility] Results Includes: Results from 06/19/2023 through 06/19/2024 DRUG MONITORING, PANEL 6 WITH CONFIRMATI ON, URINE [employer] Ordered by DENNISE GRIMES on Collected: 10/07/2023 Reported: 10/09/19 24 23:08 Last Documented On 4 11:38AM ; [facility] Reviewed by DENNISE GRIMES on 10/28/2023; All test results are final unless otherwise noted. Amphetamines NEGATIVE ng/mL (<500) None Last Documented On 4 11:39PM ; [facility] Barbiturates NEGATIVE ng/mL (<300) None Last Documented On 4 11:39PM ; [facility] Benzodiazepines NEGATIVE ng/mL (<100) None Last Documented On 4 11:39PM ; [facility] Marijuana Metabolite NEGATIVE ng/mL (<20) None Last Documented On 4 11:39PM ; [facility] Cocaine Metabolite NEGATIVE ng/mL (<150) None Last Documented On 4 11:39PM ; [facility] Methadone Metabolite NEGATIVE ng/mL (<100) None Last Documented On 4 11:39PM ; [facility] Opiates POSITIVE ng/mL (<100) A (Abnormal) Last Documented On 4 11:39PM ; [facility] Codeine 2280 ng/mL (<50) H (High) Last Documented On 4 11:39PM ; [facility] medMATCH Codeine CONSISTENT None Last Documented On 4 11:39PM ; [facility] Morphine 156 ng/mL (<50) H (High) Last Documented On 4 11:39PM ; [facility] medMATCH Morphine CONSISTENT None Last Documented On 4 11:39PM ; [facility] Hydrocodone NEGATIVE ng/mL (<50) None Last Documented On 4 11:39PM ; [facility] Hydromorphone NEGATIVE ng/mL (<50) None Last Documented On 4 11:39PM ; [facility] Oxycodone POSITIVE ng/mL (<100) A (Abnormal) Last Documented On 4 11:39PM ; [facility] Oxycodone NEGATIVE ng/mL (<50) None Last Documented On 4 11:39PM ; [facility] Oxymorphone 100 ng/mL (<50) H (High) Last Documented On 4 11:39PM ; [facility] medMATCH Oxymorphone INCONSISTENT A (Abnormal) Last Documented On 4 11:39PM ; [facility] Phencyclidine NEGATIVE ng/mL (<25) None Last Documented On 4 11:39PM ; [facility] Alcohol Metabolites NEGATIVE ng/mL (<500) None Last Documented On 4 11:39PM ; [facility] 6 Acetylmorphine NEGATIVE ng/mL (<10) None Last Documented On 4 11:39PM ; [facility] pH 5.4 (4.5-9.0) None Last Documented On 4 11:39PM ; [facility] Creatinine 87.0 mg/dL (> or = 20.0) None Last Documented On 4 11:39PM ; [facility] Oxidant NEGATIVE mcg/mL (<200) None Last Documented On 4 11:39PM ; [facility] Norhydrocodone 52 ng/mL (<50) H (High) Last Documented On 4 11:39PM ; [facility] Noroxycodone 185 ng/mL (<50) H (High) Last Documented On 4 11:39PM ; [facility] medMATCH Norhydrocodone INCONSISTENT A (Abnormal) Last Documented On 11:39PM ; [facility] medMATCH Noroxycodone INCONSISTENT A (Abnormal) Last Documented On 11:39PM ; [facility] Opiates Comments See Note None Last Documented On 10/09/2023 11:39PM ; [facility] Note: See Opiates Notes, LDT Notes Oxycodone Comments See Note None Last Documented On 10/09/2023 11:39PM ; [facility] Note: See Oxycodone Notes, LDT Notes DRUG MONITORING TEMPLATE [employer] Ordered by DENNISE GRIMES on Collected: 10/07/2023 Reported: 10/09/19 24 23:08 Last Documented On 11:38AM ; [facility] Reviewed by DENNISE GRIMES on 10/28/2023; All test results are final unless otherwise noted. Notes and Comments See Note None Last Documented On 10/09/2023 11:39PM ; [facility] Note: This drug testing is for medical [...] analytical performance characteristics have been determined by [employer]. It has not been cleared or approved by the FDA. This assay has been validated pursuant to the CLIA regulations and is used for clinical purposes. medMATCH(R) enables providers to identify if drug useis consistent or inconsistent with a correspondingprescribed medication(s) list. Healthcare Providers needing Interpretation assistance, please contact us at [phone] ( ) M-F, 8am to 10pm EST PRESCRIBED DRUGS, medMATCH(R) [email or web address] Ordered by DENNISE GRIMES on Collected: 10/07/2023 Reported: 10/09/19 24 23:08 Last Documented On 4 11:38AM ; [facility] Reviewed by DENNISE GRIMES on 10/28/2023; All test results are final unless otherwise noted. Prescribed Drug 6 Codeine None Last Documented On 4 11:39PM ; [facility] medMATCH Summary See Note None Last Documented On 10/09/2023 11:39PM ; [facility] Note: Prescribed Prescribed Not Prescribed Consistent Inconsistent Inconsistent Codeine Norhydrocodone Noroxycodone Oxymorphone Reported Physicians Beegit In c. Ordered by DENNISE GRIMES on Collected: 10/07/2023 Reported: 10/10/19 24 00:10 Last Documented On 4 11:38AM ; [facility] Reviewed by DENNISE GRIMES on 10/28/2023; All test results are final unless otherwise noted. Reported Physicians See Note None Last Documented On 10/09/2023 11:39PM ; [facility] Note: Reported Physicians:Ordering: Dennise Anthony History of Present Illness History of Present Illness not supported for this document type No History of Present Illness Recorded Social History Description Last Updated Tobacco non-user 07/26/2022 Last Documented On 3 11:48AM ; [facility] No consumption of alcohol 03/14/2022 Last Documented On 2 3:37PM ; [facility] Not using drugs 03/14/2022 Last Documented On 2 3:37PM ; [facility] Difficulty walking 08/21/2021 Last Documented On 2 4:35PM ; [facility] Smoking Status Unknown Procedures and Surgical History Surgical History Last Updated Pacemaker 03/14/2022 Last Documented On 2 3:37PM ; [facility] Medical History Includes: Medical History in patient's chart Description Last Updated Has a fear of falling. 05/23/2022 Last Documented On 3 1:28PM ; [facility] Has had a fall in the last 12 months. Last Documented On 3 1:28PM ; [facility] History of acute myocardial infarction A ugust 202103/14/2022 Last Documented On 2 3:37PM ; [facility] Currently wearing eyeglasses 03/14/2022 Last Documented On 2 3:37PM ; [facility] Deep muscle stimulation 03/14/2022 Last Documented On 2 3:37PM ; [facility] Injection/Nerve blocks 03/14/2022 Last Documented On 2 3:37PM ; [facility] No Pain Pump 03/14/2022 Last Documented On 2 3:37PM ; [facility] No Spinal cord stimulator 03/14/2022 Last Documented On 2 3:37PM ; [facility] Physical therapy 03/14/2022 Last Documented On 2 3:37PM ; [facility] Please list all illnesses/co nditions you have been diagnosed with: Two pinched nerves in my lower back neuropathy total right knee replacement heart disease 03/14/2022 Last Documented On 2 3:37PM ; [facility] Please list all surgeries: R ight ankle 1988 right knee scope 4x 2018 total right knee replacement carpal tunnel both hands 2004 and just on the right 2013 partial hysterectomy 2009 stent in my heart 2018 heart ablation 2019 [id number] 03/14/2022 Last Documented On 2 3:37PM ; [facility] Severe Pain 03/14/2022 Last Documented On 2 3:37PM ; [facility] Uses a cane for support 03/14/2022 Last Documented On 2 3:37PM ; [facility] Which brand of pacemaker/defibrillator d o you have? Biotronik 03/14/2022 Last Documented On 2 3:37PM ; [facility] Family History Includes: Family History in patient's chart Description Last Updated Family history of Arthritis 03/14/2022 Last Documented On 2 3:37PM ; [facility] Family history of ischemic heart disease 03/14/2022 Last Documented On 2 3:37PM ; [facility] Family history of stroke/paralysis 03/14 Last Documented On 2 3:37PM ; [facility] Paternal history of Arthritis 03/14/2022 Last Documented On 2 3:37PM ; [facility] Paternal history of family history of is chemic heart disease 03/14/2022 Last Documented On 2 3:37PM ; [facility] Review of Systems Review of Systems not [...] Time Diagnosis PAIN MANAGEMENT FO[facility] 1:03PM 1:58PM Chronic Pain Syndrome,Bulging Intervertebral Disc Lumbar,Polyneurop athy Diabetic,Spinal Stenosis Lumbar with Neurogenic Claudication,Spon dylosis with Radiculopathy Lumbar Region,Halfway Use of Opiate Analgesic,Myalgia , Other Site (M79.18) RX ISSUE/REFILL DENNISE GRIMES 024 03/27/2023 1:47PM 03/27/2023 11:59PM Insurance Includes: Active Insurance Policies Plan Name Member ID Group # Subscriber Relationship Effect arcadio Dates 1 - MEDICARE PART A CLAIMS/NGS [id number] ANAM [employer] DOLLAR Self 2 - MED[place] MEDICARE SECOND [id number] ANAM [employer] DOLLAR Self Clinical Notes Includes: Signed Clinical Notes starting from 06/07/2022 * Progress note Date Encounter Last Documented by 10/07/2023 PAIN MANAGEMENT FOLLOW UP Last d ocumented on 10/08/2023; 9:10 AM, DENNISE ANTHONY ANP-; [facility] Active Problems & Conditions [...] is scheduled to have surgery 06/10/23 at [facility]. She continues tylenol #3 as needed twice [...] muscle tightness and pressure. With her recent [place] and hypotension we will avoid further medication. [...] comorbidities. Patient suffered a myocardial infarction and [place] and continues to be weak and hypotensive. [...] days. 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 Numbness and tingling in feet causes falls. After right knee replacement there was an increase in lateral thigh/knee numbness and more falls. Her neurologist placed her on permanent restrictions due to gait instability and she is now on disability. She had worked at [employer] for over 20 years. 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 Medical: Currently wearing eyeglasses, orthopedic history Left [...] syndrome [G89.4 - Chronic pain syndrome] - [facility] use of opiate analgesic [Z79.891 - salvage determiner (current) use of opiate analgesic] Therapy - [...] in about 6 weeks. Plan StartCited - [facility] (current) use of opiate analgesic Lab: PRESCRIBED [...] but may be subject to typographical or meter supervisor errors. Verify all diagnoses, medications, dosages, and [...] documented on 07/21/2023; 10:00 AM, DENNISE HERNANDEZ-; [facility] Active Problems & Conditions [...] ~ pt phone # for Return call: [phone] ~Last Drug Screen:09/03/22 ~Date/Initials: 07/18/23 CB. Past Medical/Surgical History Reported: Injection/Nerve blocks, Deep muscle stimulation, Physical therapy, Which brand of pacemaker/defibrillator do you have? [employer], Please list all illnesses/conditions you have been diagnosed with: Two pinched nerves in my lower back neuropathy total right knee replacement heart disease, and Please list all surgeries: Right ankle 1988 right knee scope 4x 2018 total right knee replacement carpal tunnel both hands 2003 and just on the right 2012 partial hysterectomy 2009 stent in my heart 2018 heart ablation 2019 [id number]. Medical: Currently wearing eyeglasses, orthopedic history Left [...]
--- OUTSIDE RECORDS SUMMARY | 2024-06-19 21:26 | XMS_ITS | Clinical Summary ---
Author Organization [facility] Address [address] [place] [address] Phone Care Team Providers Care Brim Edge Trimmer Name Role Phone EUFEMIA SYDNEY DENNISE Vita Unavailable [phone] CAMPOS WHEELER MD Primary Care Provider [phone] Reason for Visit and Chief Complaint The [...] tatus Coronary Artery Disease Unknown JANAE BIRD CHRONIC MANAGER-FPA, TAXI PROPRIETOR-BC Active Last Documented On 3 10:16AM ; [facility] Diabetes Mellitus Unknown JANAE BIRD APR N-FPA, TAXI PROPRIETOR-BC Active Last Documented On 3 10:18AM ; [facility] Hypothyroidism Unknown JANAE BIRD CHRONIC MANAGER-F PA, TAXI PROPRIETOR-BC Active Last Documented On 3 10:18AM ; [facility] Plan of Treatment Education and Decision Aids were provided during visit for: Pill Count: seven TYLENOL #3 Last Documented On 4 1:36PM ; [facility] Assessments Includes: Assessments from this encounter Findings - Bulging lumbar disc [M51.26 - Other intervertebral disc displacement, lumbar region] - Last Documented On 10/08/2023 9:10AM ; [facility] - Lumbar spondylosis with radiculopathy [M47.26 - Other spondylosis with radiculopathy, lumbar region] - Last Documented On 10/08/2023 9:10AM ; [facility] - Lumbar stenosis with neurogenic claudication [M48.062 - Spinal stenosis, lumbar region with neurogenic claudication] - Last Documented On 10/08/2023 9:10AM ; [facility] - Diabetic polyneuropathy [E13.42 - Other specified diabetes mellitus with diabetic polyneuropathy] - Last Documented On 10/08/2023 9:10AM ; [facility] - Myalgia [M79.18 - Myalgia, other site] - Last Documented On 10/08/2023 9:10AM ; [facility] - Chronic pain syndrome [G89.4 - Chronic pain syndrome] - Last Documented On 10/08/2023 9:10AM ; [facility] - 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 [Z79.891 - senior living (current) use of opiate analgesic] - Last Documented On 10/08/2023 9:10AM ; [facility] Instructions Includes: Instructions from this encounter Education and Decision Aids were provided during visit for: Pill Count: seven TYLENOL #3 Last Documented On 4 1:36PM ; [facility] Medical Equipment - Implanted Devices Includes: Current Devices No Medical Equipment Recorded Medications Includes: Medications discussed during this encounter and other current Medications Discontinued / Stopped on this date DENNISE GRIMES on 10/03/2023 Linzess 145 MCG Oral Capsule Provider: DENNISE GRIMES Diagnosis: Last Documented On 10/07/2023 1:35PM By Laura RIVERA ; [facility] Vascepa 1 GM Oral Capsule Provider: Diagnosis: Last Documented On 10/07/2023 1:35PM By Laura RIVERA ; [facility] Current Medications (continue as prescribed) Linzess 145 MCG Oral Capsule 11/03/2023 Provider: ISIDORO SCHMIDT Diagnosis: Constipation, un specified TAKE 1 CAPSULE BY MOUTH DAILY Last Documented On 4 1:40PM By JANAE CHAUDHRY ; [facility] tiZANidine HCl 2 MG Oral Tablet 10/24/2023 Provider: JANAE G PELON CHRONIC MANAGER-FPA, TAXI PROPRIETOR-BC Diagnosis: TAKE 1 TABLET BY MOUTH 2 TO 3 TIMES PER DAY NEEDED Last Documented On 4 10:26AM By JANAE BIRD [facility] ; [facility] Acetaminophen-Codeine 300-30 MG Oral Tablet 10/08/2023 Provider: DENNISE HERNANDEZ Diagnosis: Spinal stenosis, lumbar region with neurogenic claudication 1 po bid prn/ max 2 per day Last Documented On 4 9:26AM By [facility] ; [facility] Ozempic (0.25 or 0.5 MG/DOSE ) 2 MG/3ML Subcutaneous Solution Pen-injector 10/02/2023 Provider: Diagnosis: Last Documented On 10/07/2023 1:34PM By Laura RIVERA ; [facility] Ubrelvy 100 MG Oral Tablet 09/18/2023 Provider: Diagnosis: Last Documented On 10/07/2023 1:35PM By Laura RIVERA ; [facility] Qulipta 60 MG Oral Tablet 09/11/2023 Provider: Diagnosis: Last Documented On 10/07/2023 1:34PM By Laura RIVERA ; [facility] tiZANidine HCl 2 MG Oral Tablet 08/13/2023 Provider: JANAE BIRD CHRONIC MANAGER-FPA, TAXI PROPRIETOR-BC Diagnosis: TAKE 1 TABLET BY MOUTH 2 TO 3 TIMES PER DAY NEEDED Last Documented On 4 12:03PM By JANAE BIRD [facility] ; [facility] Gentamicin Sulfate 0.1% External Ointment 07/11/2023 Provider: JW MARIN DPM Diagnosis: Last Documented On 10/07/2023 1:33PM By Laura RIVERA ; [facility] Gabapentin 600 MG Oral Tablet 06/23/2023 Provider: DENNISE GRIMES 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 TAKE 1 TABLET BY MOUTH THREE TIMES DAILY Last Documented On 4 8:40AM By DENNISE GRIMES ; [facility] DULoxetine HCl 60 MG Oral Capsule Delayed Release Particles 06/23/2023 Provider: DENNISE BarnesBC Diagnosis: Chronic pain syn drome TAKE 1 CAPSULE BY MOUTH DAILY Last Documented On 8:40AM By DENNISE FALL [facility]- ; [facility] Santyl 250 UNIT/GM External Ointment 06/06/2023 Prov ider: JW MARIN DPM Diagnosis: Last Documented On 10/07/2023 1:34PM By Laura RIVERA ; [facility] Bumetanide 1 MG Oral Tablet 09/13/2022 Provider: Diagnosis: Last Documented On 10:28AM By Laura RIVERA ; [facility] Kerendia 20 MG Oral Tablet 03/03/2022 Provider: Diagnosis: Last Documented On 03/14/2022 3:11PM By Laura RIVERA ; [facility] Brilinta 90 MG Oral Tablet 02/19/2022 Provider: Diagnosis: Last Documented On 03/14/2022 3:12PM By Luara RIVERA ; [facility] Carvedilol 6.25 MG Oral Tablet 01/26/2022 Provider: Diagnosis: Last Documented On 03/14/2022 3:06PM By Laura RIVERA ; [facility] Entresto 24-26 MG Oral Tablet 01/25/2022 Provider: Diagnosis: Last Documented On 03/14/2022 3:13PM By Laura RIVERA ; [facility] Jardiance 25 MG Oral Tablet 09/03/2021 Provider: Diagnosis: Last Documented On 09/20/2021 9:45AM By Laura RIVERA ; [facility] Aspirin 81 MG Oral Capsule 08/21/2021 Provider: Diagnosis: Last Documented On 08/21/2021 1:34PM By Laura RIVERA ; [facility] Nitroglycerin 0.4 MG Sublingual Tablet Sublingual 09/2021 Provider: Diagnosis: Last Documented On 08/21/2021 1:36PM By Laura RIVERA ; [facility] metFORMIN HCl 1000 MG Oral Tablet 08/20/2021 Provide r: CAMPOS WHEELER MD Diagnosis: Last Documented On 08/21/2021 1:30PM By Laura RIVERA ; [facility] Levothyroxine Sodium 100 MCG Oral Tablet 08/20/2021 Provider: CAMPOS WHEELER MD Diagnosis: Last Documented On 08/21/2021 1:30PM By Laura RIVERA ; [facility] Topiramate 25 MG Oral Tablet 2021 Provider: Diagnosis: Last Documented On 08/21/2021 1:31PM By Laura RIVERA ; [facility] Atorvastatin Calcium 40 MG Oral Tablet 08/09/2021 Pr ovider: CAMPOS WHEELER MD Diagnosis: Last Documented On 08/21/2021 1:31PM By Laura RIVERA ; [facility] Past Medications on file Bumetanide 1 MG Oral Tablet 05/23/2022 - 06/22/2022 Pr ovider: Diagnosis: Last Documented On 10:20AM By [facility] ; [facility] Medications Administered Includes: Administered Medications [...] 98 Last Documented: On 10/07/2023 1:32PM ; [facility] Results Includes: Results discussed during this encounter [...] is scheduled to have surgery 06/10/23 at [facility]. She continues tylenol #3 as needed twice [...] muscle tightness and pressure. With her recent [place] and hypotension we will avoid further medication. [...] days. She has an upcoming appt with resident director. Numbness and tingling in feet causes falls. After right knee replacement there was an increase in lateral thigh/knee numbness and more falls. Her neurologist placed her on permanent restrictions due to gait instability and she is now on disability. She had worked at [employer] for over 20 years. Gabapentin 300mg TID has been her dose for 5 plus years. She was originally treated by Dr Araujo until his snf and given oxycodone. Dr Cabrera assumed care until recently. He no longer prescribes pain medication. Her pcp placed her on Tylenol #3 at bedtime, which provides minimal relief. She really doesn't question additional pain medication and is open to a treatment plan that would include reduction of medication use. 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, she is seeing [...] 07/26/2022 Last Documented On 4 1:11PM ; [facility] Difficulty walking 08/21/2021 Last Documented On 4 1:11PM ; [facility] Smoking Status Unknown Procedures and Surgical History Includes: Procedures from this encounter Procedures Code Diagnosis Performing Provider Service L ocation Service Date use of tobacco assessment performed 1000F Last Documented On 4 1:36PM ; [facility] review of medications documented 1160F Last Documented On 4 1:36PM ; [facility] screening for adult depression: impressi on and score seven Last Documented On 4 1:11PM ; [facility] standardized depression screening: posit arcadio for symptoms Last Documented On 4 1:11PM ; [facility] Clinical summary provided to patient Last Documented On 4 1:11PM ; [facility] SOAPP-R: total score 6 Last Documented On 4 1:38PM ; [facility] Surgical History Last Updated Pacemaker 03/14/2022 Last Documented On 4 1:11PM ; [facility] Medical History Includes: Medical History addressed during this encounter Description Last Updated Has a fear of falling. 05/23/2022 Last Documented On 4 1:11PM ; [facility] Has had a fall in the last 12 months. Last Documented On 4 1:11PM ; [facility] History of acute myocardial infarction A ugust 202103/14/2022 Last Documented On 4 1:11PM ; [facility] Currently wearing eyeglasses 03/14/2022 Last Documented On 4 1:11PM ; [facility] Deep muscle stimulation 03/14/2022 Last Documented On 4 1:11PM ; [facility] Injection/Nerve blocks 03/14/2022 Last Documented On 4 1:11PM ; [facility] Physical therapy 03/14/2022 Last Documented On 4 1:11PM ; [facility] Please list all illnesses/co nditions you have been diagnosed with: Two pinched nerves in my lower back neuropathy total right knee replacement heart disease 03/14/2022 Last Documented On 4 1:11PM ; [facility] Please list all surgeries: R ight ankle 1988 right knee scope 4x 2018 total right knee replacement carpal tunnel both hands 2004 and just on the right 2013 partial hysterectomy 2009 stent in my heart 2018 heart ablation 2019 [id number] 03/14/2022 Last Documented On 4 1:11PM ; [facility] Severe Pain 03/14/2022 Last Documented On 4 1:11PM ; [facility] Uses a cane for support 03/14/2022 Last Documented On 4 1:11PM ; [facility] Which brand of pacemaker/defibrillator d o you have? Biotronik 03/14/2022 Last Documented On 4 1:11PM ; [facility] Family History Includes: Family History addressed during this encounter Description Last Updated Family history of Arthritis 03/14/2022 Last Documented On 4 1:11PM ; [facility] Family history of ischemic heart disease 03/14/2022 Last Documented On 4 1:11PM ; [facility] Family history of stroke/paralysis 03/14 Last Documented On 4 1:11PM ; [facility] Paternal history of Arthritis 03/14/2022 Last Documented On 4 1:11PM ; [facility] Paternal history of family history of is chemic heart disease 03/14/2022 Last Documented On 4 1:11PM ; [facility] Review of Systems Includes: Review of Systems [...] MANAGEMENT FOLLOW UP DENNISE FALL [facility] 024 1:03PM 1:58PM Chronic Pain Syndrome,Bulging Intervertebral Disc Lumbar,Polyneurop athy Diabetic,Spinal Stenosis Lumbar with Neurogenic Claudication,Spon dylosis with Radiculopathy Lumbar Region,An/Sqq 89(V)15 Sonar System Journeyman Use of Opiate Analgesic,Myalgia , Other Site (M79.18) Insurance Includes: Active Insurance Policies Plan Name Member ID Group # Subscriber Relationship Effect arcadio Dates 1 - MEDICARE PART A CLAIMS/NGS [id number] [employer] 2 - MEDICAID [place] MEDICARE SECOND [id number] [employer] Clinical Notes Includes: Clinical Notes from this encounter * Progress note Date Encounter Last Documented by 10/07/2023 PAIN MANAGEMENT FOLLOW UP Last d ocumented on 10/08/2023; 9:10 AM, DENNISE FALL ANP-; [facility] Active Problems & [...] is scheduled to have surgery 06/10/23 at [facility]. She continues tylenol #3 as needed twice [...] muscle tightness and pressure. With her recent [place] and hypotension we will avoid further medication. [...] comorbidities. Patient suffered a myocardial infarction and [place] and continues to be weak and hypotensive. [...] days. She has an upcoming appt with resident director. Numbness and tingling in feet causes falls. After right knee replacement there was an increase in lateral thigh/knee numbness and more falls. Her neurologist placed her on permanent restrictions due to gait instability and she is now on disability. She had worked at [employer] for over 20 years. Gabapentin 300mg TID has been her dose for 5 plus years. She was originally treated by Dr Araujo until his snf and given oxycodone. Dr Cabrera assumed care until recently. He no longer prescribes pain medication. Her pcp placed her on Tylenol #3 at bedtime, which provides minimal relief. She really doesn't question additional pain medication and is open to a treatment plan that would include reduction of medication use. 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 [employer], Please list all illnesses/conditions you have been diagnosed with: Two pinched nerves in my lower back neuropathy total right knee replacement heart disease, and Please list all surgeries: Right ankle 1988 right knee scope 4x 2018 total right knee replacement carpal tunnel both hands 2003 and just on the right 2012 partial hysterectomy 2009 stent in my heart 2018 heart ablation 2019 [id number]. Medical: Currently wearing eyeglasses, orthopedic history Left [...] syndrome [G89.4 - Chronic pain syndrome] - senior living use of opiate analgesic [Z79.891 - terminal computer operator (current) use of opiate analgesic] Therapy - [...] in about 6 weeks. Plan StartCited - senior living (current) use of opiate analgesic Lab: PRESCRIBED [...] but may be subject to typographical or supervisor mold cleaning and storage errors. Verify all diagnoses, medications, dosages, and patient instructions with patient and/or the originator of this document. Care Team - DAVID SHETTY- - Pain Management Health Reminders - Assess BMI satisfied 10/07/2023. - Assess Need for CT Lung Screen satisfied 10/07/2023. - Assess Tobacco Use satisfied 10/07/2023. - Depression Screening satisfied 10/07/2023.
--- OUTSIDE RECORDS SUMMARY | 2024-06-19 21:26 | XMS_ITS | Clinical Summary ---
Author Organization [facility] Facility Address [address] [place] [address] Care Team Providers Care Admission Discharge Rn Name Role Phone Rehan Mann PA-C Primary Care Provider [phone] Social History Tobacco Use Types Packs/Day Years [...] Description 01/11/2025 12:30 PM CDT Office Visit [facility], [facility] [address] [place] [address] Sergey Everett DO [address] [place] [address] Health Maintenance Due Date Last [...] 12/05/2023 Insurance MEDICARE [place]ID [place] Care Teams Admission Discharge Rn Relationship Specialty Start Date End Date Rehan Mann PA-C [address] [place] [address] PCP - General Family Medicine 08/07/23
--- OUTSIDE RECORDS SUMMARY | 2024-06-19 21:26 | XMS_ITS | Clinical Summary ---
Author Organization [facility] Address [address] [place] [address] Phone Care Team Providers Care Case Managers Name Role Phone EUFEMIA SYDNEY DENNISE Vita Unavailable [phone] CAMPOS WHEELER MD Primary Care Provider [phone] Reason for Visit and Chief Complaint The Chief Complaint is: 3 MO FU Problems Includes: Problems addressed during this encounter and other active Problems All Visits Onset Date Resolved Date Provider Condition S tatus Coronary Artery Disease Unknown JANAE Lynn PELON FORKLIFT OPERATOR-FPA, RELOCATION SPECIALIST-BC Active Last Documented On 3 10:16AM ; [facility] Diabetes Mellitus Unknown JANAE Lynn PELON APR N-FPA, RELOCATION SPECIALIST-BC Active Last Documented On 3 10:18AM ; [facility] Hypothyroidism Unknown JANAE Lynn PELON FORKLIFT OPERATOR-F PA, RELOCATION SPECIALIST-BC Active Last Documented On 3 10:18AM ; [facility] Plan of Treatment Education and Decision Aids were provided during visit for: Pill Count: three TYLENOL #3 Last Documented On 3 9:55AM ; [facility] Assessments Includes: Assessments from this encounter Findings - Bulging lumbar disc [M51.26 - Other intervertebral disc displacement, lumbar region] - Last Documented On 03/27/2023 10:20AM ; [facility] - Lumbar spondylosis with radiculopathy [M47.26 - Other spondylosis with radiculopathy, lumbar region] - Last Documented On 03/27/2023 10:20AM ; [facility] - Lumbar stenosis with neurogenic claudication [M48.062 - Spinal stenosis, lumbar region with neurogenic claudication] - Last Documented On 03/27/2023 10:20AM ; [facility] - Diabetic polyneuropathy [E13.42 - Other specified diabetes mellitus with diabetic polyneuropathy] - Last Documented On 03/27/2023 10:20AM ; [facility] - Myalgia [M79.18 - Myalgia, other site] - Last Documented On 03/27/2023 10:20AM ; [facility] - Chronic pain syndrome [G89.4 - Chronic pain syndrome] - Last Documented On 03/27/2023 10:20AM ; [facility] - USP use of opiate analgesic [Z79.891 - USP (current) use of opiate analgesic] - Last Documented On 03/27/2023 10:20AM ; [facility] Instructions Includes: Instructions from this encounter Education and Decision Aids were provided during visit for: Pill Count: three TYLENOL #3 Last Documented On 3 9:55AM ; [facility] Medical Equipment - Implanted Devices Includes: Current Devices No Medical Equipment Recorded Medications Includes: Medications discussed during this encounter and other current Medications Discontinued / Stopped on this date DENNISE GRIMES on 01/13/2023 Acetaminophen-Codeine 300-30 MG Oral Tablet Provider: DENNISE GRIMES Diagnosis: Spondylosis w/o myelopathy or radiculopathy, lumbar region Last Documented On 3 10:12AM By DENNISE GRIMES ; [facility] DULoxetine HCl 30 MG Oral Capsule Delayed Release Particles Provider: DENNISE SHIPLEY Diagnosis: Chronic pain syn drome Last Documented On 3 10:04AM By DENNISE GRIMES ; [facility] New / Renewed during this visit DENNISE GRIMES on 03/27/2023 Acetaminophen-Codeine 300-30 MG Oral Tablet Provider: DENNISE GRIMES 30 day supply: 60 tablet, 0 refills Diagnosis: Spinal stenosis, lumbar region with neurogenic claudication 1 po bid prn/ max 2 per day [facility] [address] [facility], [phone] - Last Documented On 4 4:06PM By [facility] ; [facility] Current Medications (continue as prescribed) Linzess 145 MCG Oral Capsule 11/03/2023 Provider: ISIDORO SCHMIDT Diagnosis: Constipation, un specified TAKE 1 CAPSULE BY MOUTH DAILY Last Documented On 4 1:40PM By JANAE BIRD [facility] ; [facility] tiZANidine HCl 2 MG Oral Tablet 10/24/2023 Provider: JANAE HENNING RELOCATION SPECIALIST-CHRISTOFER Diagnosis: TAKE 1 TABLET BY MOUTH 2 TO 3 TIMES PER DAY NEEDED Last Documented On 4 10:26AM By JANAE NEALCHRISTOFER ; [facility] Acetaminophen-Codeine 300-30 MG Oral Tablet 10/08/2023 Provider: DENNISE GRIMES Diagnosis: Spinal stenosis, lumbar region with neurogenic claudication 1 po bid prn/ max 2 per day Last Documented On 4 9:26AM By [facility] ; [facility] Ozempic (0.25 or 0.5 MG/DOSE ) 2 MG/3ML Subcutaneous Solution Pen-injector 10/02/2023 Provider: Diagnosis: Last Documented On 10/07/2023 1:34PM By Laura RIVERA ; [facility] Ubrelvy 100 MG Oral Tablet 09/18/2023 Provider: Diagnosis: Last Documented On 10/07/2023 1:35PM By Laura RIVERA ; [facility] Qulipta 60 MG Oral Tablet 09/11/2023 Provider: Diagnosis: Last Documented On 10/07/2023 1:34PM By Laura RIVERA ; [facility] tiZANidine HCl 2 MG Oral Tablet 08/13/2023 Provider: JANAE HENNING RELOCATION SPECIALISTQUINTEN Diagnosis: TAKE 1 TABLET BY MOUTH 2 TO 3 TIMES PER DAY NEEDED Last Documented On 4 12:03PM By JANAE BIRD [facility] ; [facility] Gentamicin Sulfate 0.1% External Ointment 07/11/2023 Provider: JW HARTM Diagnosis: Last Documented On 10/07/2023 1:33PM By Laura RIVERA ; [facility] Gabapentin 600 MG Oral Tablet 06/23/2023 Provider: [facility] Diagnosis: h diabetes lary litus with diabetic polyneuropathy TAKE 1 TABLET BY MOUTH THREE TIMES DAILY Last Documented On 4 8:40AM By DENNISE FALL [facility] ; [facility] DULoxetine HCl 60 MG Oral Capsule Delayed Release Particles 06/23/2023 Provider: DENNISE FALL [facility] Diagnosis: Chronic pain syn drome TAKE 1 CAPSULE BY MOUTH DAILY Last Documented On 4 8:40AM By DENNISE FALL [facility] ; [facility] Santyl 250 UNIT/GM External Ointment 06/06/2023 Prov ider: JW MARIN DPM Diagnosis: Last Documented On 10/07/2023 1:34PM By Laura RIVERA ; [facility] Bumetanide 1 MG Oral Tablet 09/13/2022 Provider: Diagnosis: Last Documented On 3 10:28AM By Laura RIVERA ; [facility] Kerendia 20 MG Oral Tablet 03/03/2022 Provider: Diagnosis: Last Documented On 03/14/2022 3:11PM By Laura RIVERA ; [facility] Brilinta 90 MG Oral Tablet 02/19/2022 Provider: Diagnosis: Last Documented On 03/14/2022 3:12PM By Laura RIVERA ; [facility] Carvedilol 6.25 MG Oral Tablet 01/26/2022 Provider: Diagnosis: Last Documented On 03/14/2022 3:06PM By Laura RIVERA ; [facility] Entresto 24-26 MG Oral Tablet 01/25/2022 Provider: Diagnosis: Last Documented On 03/14/2022 3:13PM By Laura RIVERA ; [facility] Jardiance 25 MG Oral Tablet 09/03/2021 Provider: Diagnosis: Last Documented On 09/20/2021 9:45AM By Laura RIVERA ; [facility] Aspirin 81 MG Oral Capsule 08/21/2021 Provider: Diagnosis: Last Documented On 08/21/2021 1:34PM By Laura RIVERA ; [facility] Nitroglycerin 0.4 MG Sublingual Tablet Sublingual 09/2021 Provider: Diagnosis: Last Documented On 08/21/2021 1:36PM By Laura RIVERA ; [facility] metFORMIN HCl 1000 MG Oral Tablet 08/20/2021 Provide r: CAMPOS WHEELER MD Diagnosis: Last Documented On 08/21/2021 1:30PM By Laura RIVERA ; [facility] Levothyroxine Sodium 100 MCG Oral Tablet 08/20/2021 Provider: CAMPOS WHEELER MD Diagnosis: Last Documented On 08/21/2021 1:30PM By Laura RIVERA ; [facility] Topiramate 25 MG Oral Tablet 2021 Provider: Diagnosis: Last Documented On 08/21/2021 1:31PM By Laura RIVERA ; [facility] Atorvastatin Calcium 40 MG Oral Tablet 08/09/2021 Pr ovider: CAMPOS WHEELER MD Diagnosis: Last Documented On 08/21/2021 1:31PM By Laura RIVERA ; [facility] Past Medications on file Bumetanide 1 MG Oral Tablet 05/23/2022 - 06/22/2022 Pr ovider: Diagnosis: Last Documented On 10:20AM By JANAE TURNER ; [facility] Medications Administered Includes: Administered Medications [...] 99 Last Documented: On 03/27/2023 9:51AM ; [facility] Results Includes: Results discussed during [...] is scheduled to have surgery 06/10/23 at [facility]. She continues tylenol #3 as [...] muscle tightness and pressure. With her recent CA and hypotension we will avoid further medication. [...] comorbidities. Patient suffered a myocardial infarction and [place] and continues to be weak and hypotensive. [...] days. She has an upcoming appt with salesperson flying squad. Numbness and tingling in feet causes falls. After right knee replacement there was an increase in lateral thigh/knee numbness and more falls. Her neurologist placed her on permanent restrictions due to gait instability and she is now on disability. She had worked at [employer] for over 20 years. Gabapentin 300mg TID has been her dose for 5 plus years. She was originally treated by Dr Araujo until his alf and given oxycodone. Dr Cabrera assumed care until recently. He no longer prescribes pain medication. Her pcp placed her on Tylenol #3 at bedtime, which provides minimal relief. She really doesn't question additional pain medication and is open to a treatment plan that would include reduction of medication use. We discussed increasing gabapentin to 600mg tid and will do so if her outside plant technician is ok with this, she is seeing [...] 07/26/2022 Last Documented On 3 9:48AM ; [facility] Difficulty walking 08/21/2021 Last Documented On 3 9:48AM ; [facility] Smoking Status Unknown Procedures and Surgical History Includes: Procedures from this encounter Procedures Code Diagnosis Performing Provider Service L ocation Service Date use of tobacco assessment performed 1000F Last Documented On 3 9:55AM ; [facility] review of medications documented 1160F Last Documented On 3 9:55AM ; [facility] screening for adult depression: impressi on and score seven Last Documented On 3 9:48AM ; [facility] standardized depression screening: posit arcadio for symptoms Last Documented On 3 9:48AM ; [facility] Clinical summary provided to patient Last Documented On 3 9:48AM ; [facility] SOAPP-R: total score 4 Last Documented On 3 9:48AM ; [facility] Surgical History Last Updated Pacemaker 03/14/2022 Last Documented On 3 9:48AM ; [facility] Medical History Includes: Medical History addressed during this encounter Description Last Updated Has a fear of falling. 05/23/2022 Last Documented On 3 9:48AM ; [facility] Has had a fall in the last 12 months. Last Documented On 3 9:48AM ; [facility] History of acute myocardial infarction A ugust 202103/14/2022 Last Documented On 3 9:48AM ; [facility] Currently wearing eyeglasses 03/14/2022 Last Documented On 3 9:48AM ; [facility] Deep muscle stimulation 03/14/2022 Last Documented On 3 9:48AM ; [facility] Injection/Nerve blocks 03/14/2022 Last Documented On 3 9:48AM ; [facility] Physical therapy 03/14/2022 Last Documented On 3 9:48AM ; [facility] Please list all illnesses/co nditions you have been diagnosed with: Two pinched nerves in my lower back neuropathy total right knee replacement heart disease 03/14/2022 Last Documented On 3 9:48AM ; [facility] Please list all surgeries: R ight ankle 1988 right knee scope 4x 2018 total right knee replacement carpal tunnel both hands 2004 and just on the right 2012 partial hysterectomy 2009 stent in my heart 2018 heart ablation 2019 [id number] 03/14/2022 Last Documented On 3 9:48AM ; [facility] Severe Pain 03/14/2022 Last Documented On 3 9:48AM ; [facility] Uses a cane for support 03/14/2022 Last Documented On 3 9:48AM ; [facility] Which brand of pacemaker/defibrillator d o you have? Biotronik 03/14/2022 Last Documented On 3 9:48AM ; [facility] Family History Includes: Family History addressed during this encounter Description Last Updated Family history of Arthritis 03/14/2022 Last Documented On 3 9:48AM ; [facility] Family history of ischemic heart disease 03/14/2022 Last Documented On 3 9:48AM ; [facility] Family history of stroke/paralysis 03/14 Last Documented On 3 9:48AM ; [facility] Paternal history of Arthritis 03/14/2022 Last Documented On 3 9:48AM ; [facility] Paternal history of family history of is chemic heart disease 03/14/2022 Last Documented On 3 9:48AM ; [facility] Review of Systems Includes: Review [...] Diagnosis PAIN MANAGEMENT FOLLOW UP DENNISE FALL [facility] 023 9:32AM 10:11AM Chronic Pain Syndrome,Bulging Intervertebral Disc Lumbar,Polyneurop athy Diabetic,Spinal Stenosis Lumbar with Neurogenic Claudication,Spon dylosis with Radiculopathy Lumbar Region,Assisted Use of Opiate Analgesic,Myalgia , Other Site (M79.18) Insurance Includes: Active Insurance Policies Plan Name Member ID Group # Subscriber Relationship Effect arcadio Dates 1 - MEDICARE PART A CLAIMS/NGS [id number] [employer]NAM [employer] DOLLAR Self 2 - MED[place]ID [place] MEDICARE SECOND [id number] ANAM K DOLLAR Self Clinical Notes Includes: Clinical Notes from this encounter * Progress note Date Encounter Last Documented by 03/27/2023 PAIN MANAGEMENT FOLLOW UP Last d ocumented on 03/27/2023; 10:20 AM, DENNISE FALL ANP-; [facility] Active Problems & [...] is scheduled to have surgery 06/10/23 at [facility]. She continues tylenol #3 as [...] muscle tightness and pressure. With her recent CA and hypotension we will avoid further medication. [...] comorbidities. Patient suffered a myocardial infarction and [place] and continues to be weak and hypotensive. [...] days. She has an upcoming appt with salesperson flying squad. Numbness and tingling in feet causes falls. After right knee replacement there was an increase in lateral thigh/knee numbness and more falls. Her neurologist placed her on permanent restrictions due to gait instability and she is now on disability. She had worked at [employer] for over 20 years. Gabapentin 300mg TID has been her dose for 5 plus years. She was originally treated by Dr Araujo until his alf and given oxycodone. Dr Cabrera assumed care until recently. He no longer prescribes pain medication. Her pcp placed her on Tylenol #3 at bedtime, which provides minimal relief. She really doesn't question additional pain medication and is open to a treatment plan that would include reduction of medication use. We discussed increasing gabapentin to 600mg tid and will do so if her outside plant technician is ok with this, she is seeing [...] Which brand of pacemaker/defibrillator do you have? [employer], Please list all illnesses/conditions you have been diagnosed with: Two pinched nerves in my lower back neuropathy total right knee replacement heart disease, and Please list all surgeries: Right ankle 1988 right knee scope 4x 2018 total right knee replacement carpal tunnel both hands 2004 and just on the right 2012 partial hysterectomy 2009 stent in my heart 2018 heart ablation 2019 [id number]. Medical: Currently wearing eyeglasses, orthopedic history Left [...] syndrome [G89.4 - Chronic pain syndrome] - ovens supervisor use of opiate analgesic [Z79.891 - USP (current) use of opiate analgesic] Therapy - [...] but may be subject to typographical or salesperson yard goods errors. Verify all diagnoses, medications, dosages, and patient instructions with patient and/or the originator of this document. Care Team - DAVID SHETTY- - Pain Management Health Reminders - Assess BMI satisfied 03/27/2023. - Assess Need for CT Lung Screen satisfied 03/27/2023. - Assess Tobacco Use satisfied 03/27/2023. - Depression Screening satisfied 03/27/2023.
--- OUTSIDE RECORDS SUMMARY | 2024-06-19 21:26 | XMS_ITS | Clinical Summary ---
Author Organization [employer] [id number] Address [address] [place] [address] Care Team Providers Care Lime Spreader Name Role Phone Evelina Sifuentes MD Primary Care Provider [phone] Active Problems Patient Care Coordination No te Formatting of this note migh t be different from the original. Dr. Petra Tobar Bowling Alley Manager - [facility] Dr. Eneida Collier - DPM - [facility] Dr. 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
--- NOTE | 2024-06-19 21:35 | ED_ITS ---
HPI - Back Pain/Injury General Chief Complaint: Back Pain/Injury Stated Complaint: back pain Time Seen by Provider: 06/19/24 20:58 Source: patient Mode of arrival: ambulatory Limitations: no limitations History of Present Illness HPI Narrative: This is a 53 year old female that presents to the ER for low back pain. Reports recent spinal surgery. She was doing fairly well post op until last night. Reports she has had worsening low back pain radiating into the left hip and down to the knee. She last took her prescribed pain medication as 1 this afternoon. Denies fevers, numbness, weakness, bowel/bladder incontinence. Related Data Home Medications ?Medication ?Instructions ?Recorded ?Confirmed ?Last Taken ?Type aspirin 81 mg tablet,delayed 81 mg PO DAILY 10/27/20 06/08/24 06/01/24 History release levothyroxine 100 mcg capsule 100 mcg PO DAILY 10/27/20 06/08/24 06/08/24 History (Tirosint) metformin 1,000 mg tablet 1,000 mg PO BID 10/27/20 06/08/24 06/07/24 History nitroglycerin 0.4 mg sublingual 0.4 mg sublingual Q5M PRN Chest 10/27/20 05/31/24 Unknown History tablet Pain acetaminophen 300 mg-codeine 30 mg 1 tablet PO QHS PRN Pain 04/09/22 06/08/24 06/08/24 History tablet atorvastatin 80 mg tablet 80 mg PO DAILY 04/09/22 06/08/24 06/07/24 History bumetanide 1 mg tablet 1 mg PO .twice weekly 04/09/22 06/08/24 06/03/24 History carvedilol 6.25 mg tablet 6.25 mg PO BID 04/09/22 06/08/24 06/08/24 History empagliflozin 25 mg tablet 25 mg PO DAILY 04/09/22 05/31/24 02/10/23 History (Jardiance) sacubitril 24 mg-valsartan 26 mg 1 tablet PO BID 04/09/22 06/08/24 06/07/24 History tablet (Entresto) duloxetine 30 mg capsule,delayed 60 mg PO DAILY 02/11/23 06/08/24 06/07/24 History release linaclotide 145 mcg capsule 145 mcg PO DAILY 05/23/23 06/08/24 06/07/24 History (Linzess) semaglutide 0.25 mg or 0.5 mg (2 0.25 mg subcut WEEKLY 05/23/23 05/31/24 Unknown History mg/3 mL) subcutaneous pen injector (Ozempic) gabapentin 600 mg tablet 600 mg PO BID 11/19/23 06/08/24 06/08/24 History sertraline 25 mg tablet 50 mg PO HS 11/19/23 06/08/24 06/07/24 History ticagrelor 60 mg tablet (Brilinta) 60 mg PO BID 01/21/24 06/08/24 06/01/24 History ondansetron 8 mg disintegrating 8 mg PO Q12H 03/09/24 05/31/24 Unknown History tablet rimegepant 75 mg disintegrating 75 mg PO ONCE PRN pain 03/09/24 05/31/24 Unknown History tablet (Nurtec ODT) Allergies Allergy/AdvReac Type Severity Reaction Status Date / Time No Known Allergies Allergy Verified 06/19/24 19:50 Review of Systems 2 Review of Systems: CONSTITUTIONAL: Denies fever SKIN: Denies redness MUSCULOSKELETAL: Reports back pain, joint pain, and myalgia. NEUROLOGIC: Denies numbness, or weakness. All systems reviewed & are unremarkable except as noted in HPI and below PMFSH Past Medical History Medical History (Updated 06/20/24 @ 01:49 by Brielle Mooney PA-C) Hypothyroidism Diabetes type 2, controlled Walker as ambulation aid ICD (implantable cardioverter-defibrillator) in place Hyperlipidemia Hypertension Heart attack Surgical History Surgical History (Updated 06/07/24 @ 15:36 by Tretnon Hensley DO) History of coronary artery stent placement Family History Family History Father Hypertension Grandparent Diabetes mellitus Hypertension Depression Grandparent Depression Diabetes mellitus Hypertension Social History Social History Social History: never smoker Smoking packs per day: 0 Smoking cigarettes per day: 0.0 Years smoked: 0 Smoking pack-years: 0.00 Smoking status: Never smoker Second hand tobacco smoke exposure: No Alcohol intake: current Drinks per week: 1 Alcohol use details: 1 drink a year Substance use: never Substance use type: does not use Do You Feel Safe in your Home?: Yes Lack of Transportation: No Lack of Food: Never True Current Housing: I Have Housing Concerned About Future Housing: No Difficulty Paying Gas/Electric Bills: No Difficulty Paying for Meds: No Currently Unemployed: No Education: High School Diploma/GED Difficulty w/ Childcare or Family Care: No Living arrangements: alone Spiritual care concerns: No Exam 2 Narrative: GENERAL: Well-appearing, well-nourished, and in no acute distress. HEAD: Normocephalic, atraumatic. EYES: EOMI. CHEST: Clear to auscultation. No respiratory distress. No wheezes rales or rhonchi HEART: Regular rate and rhythm. No murmur heard. Normal peripheral pulses. BACK: Incision appears well healing without surrounding edema, erythema, abnormal drainage. EXTREMITIES: Normal range of motion. No edema. Strength equal in bilateral lower extremities (5/5). Normal DP pulses SKIN: Warm, dry, no rash. NEURO: No focal deficits. Alert and oriented x3. PSYCH: Normal mood and affect Course Course Emergency Course: Patient updated on her workup and agrees with plan of care Vital Signs Vital signs: Vital Signs Temperature 97.5 F L 06/19/24 19:56 Pulse Rate 97 06/19/24 19:56 Respiratory Rate 18 06/19/24 19:56 Blood Pressure 120/88 06/19/24 19:56 Pulse Oximetry 100 06/19/24 19:56 Oxygen Delivery Room Air 06/19/24 19:56 Temperature 97.5 F L 06/19/24 19:56 Pulse Rate 85 06/20/24 01:41 Respiratory Rate 17 06/20/24 01:41 Blood Pressure 152/89 H 06/19/24 21:45 Pulse Oximetry 98 06/20/24 01:41 Oxygen Delivery Room Air 06/19/24 20:42 MDM - Back Pain/Injury MDM Narrative Medical decision making narrative: Patient presents to the emergency department for low back pain. Recent fusion about a week ago. She is afebrile and nontoxic appearing. Her vitals are stable. She is neurologically intact. CBC metabolic panel without concerning findings. CT scan shows posterior patient L4/5. L4 laminectomy. No acute findings. Incision appears well healing without sign of infection. Patient with improvement after pain medications. Patient updated on her workup and agrees with plan of care. She is to follow up with her neurosurgeon. She was given warnings to return to the ER Differential Diagnosis Differential diagnosis: Likely sciatica, strain of lumbar region and other (post op infection) Lab Data Attestation: I reviewed the patient's lab results. 06/19/24 23:23 06/19/24 23:23 Labs: Lab Results 06/19/24 Range/Units 23:23 WBC 8.0 (4.5-10.0) K/mm3 RBC 3.94 L (4.2-5.4) M/mm3 Hgb 10.1 L (12.0-15.0) g/dL Hct 31.9 L (37.0-47.0) % MCV 81.0 (80-100) fl MCH 25.6 L (26-34) pg MCHC 31.7 L (32-36) g/dl RDW 12.4 (11.5-14.5) % Plt Count 361 (150-375) k/mm3 MPV 8.6 (7.4-10.4) fl Immature Gran % (Auto) 0.4 (0-0.5) % Neut % (Auto) 63.8 (45.5-73.1) % Lymph % (Auto) 25.6 (18.3-44.2) % [place] % (Auto) 8.1 (2.6-8.5) % Eos % (Auto) 1.7 (0-4.4) % Baso % (Auto) 0.4 (0.2-1.2) % Lymph # (Auto) 2.06 (0.9-3.2) K/mm3 [place] # (Auto) 0.7 H (0.1-0.6) K/mm3 Eos # (Auto) 0.1 (0-0.3) K/mm3 Baso # (Auto) 0.0 (0.0-0.1) K/mm3 Abs Immat Gran (auto) 0.03 (0.00-0.031) K/mm3 Absolute Neuts (auto) 5.1 (1.3-6.7) K/mm3 Absolute Nucleated RBC 0.000 (0.0-0.012) K/mm3 Nucleated RBC % 0.0 (0.0-0.2) % Sodium 138 (137-145) mmol/L Potassium 4.0 (3.4-5.0) mmol/L Chloride 99 (98-107) mmol/L Carbon Dioxide 28 (22-30) mmol/L Anion Gap 11 (4-12) mmol/L BUN 18 H (7-17) mg/dL Creatinine 0.82 (0.7-1.0) mg/dL Estim Creat Clear Calc 64 ml/min Estimated GFR > 60 (59 - ) Glucose 87 (65-110) mg/dL Calcium 9.2 (8.4-10.2) mg/dL Total Bilirubin 0.6 (0.2-1.3) mg/dL AST 23 (14-36) U/L ALT 11 (6-35) U/L Alkaline Phosphatase 114 (38-126) U/L Total Protein 7.0 (6.3-8.2) g/dL Albumin 3.7 (3.5-5.1) g/dL Imaging Data Radiologist's impression: CT lumbar spine: The vertebral heights are maintained. The lumbar lordosis is preserved. There is no spondylolisthesis. The posterior elements are maintained without evidence of acute fracture. The pedicles are intact. Posterior fusion at L4/5. L4 laminectomy. Multilevel lumbar spondylosis and degenerative disc disease Critical Care Time Critical Care Time Critical Care Time: No Discharge Plan Discharge Clinical Impression: Low back pain Qualifiers: Chronicity: acute Back pain laterality: left Sciatica presence: with sciatica S ciatica laterality: sciatica of left side Qualified Code(s): M54.42 - Lumbago with sciatica, left side Patient Disposition: Home, Self-Care Condition: Improved Instructions: Acute Low Back Pain (ED) Additional Instructions: Return to the ER if you experience weakness, numbness, bowel/bladder incontinence, or any other symptoms that are concerning to you Rest, use ice/heat, take anti-inflammatories (Aleve, Ibuprofen, Naproxen, etc) or Tylenol as needed for pain as well as muscle relaxer (Valium) as needed for pain. Muscle relaxers can make you drowsy, do not drive if you take this Follow up with your neurosurgeon Patient Language: Belarusian Prescriptions: New diazepam 5 mg tablet 5 mg PO BID PRN (Reason: muscle spasm) Qty: 10 0RF No Action Linzess 145 mcg capsule 145 mcg PO DAILY Ozempic 0.25 mg or 0.5 mg (2 mg/3 mL) pen injector 0.25 mg subcut WEEKLY Rx Instructions: for 4 weeks, saynarayan is taking 0.5mg on Wednesdays. sertraline 25 mg tablet 50 mg PO HS gabapentin 600 mg tablet 600 mg PO BID Patient Comments: TAKES TID Qulipta 60 mg tablet 60 mg PO DAILY Qty: 30 6RF Ubrelvy 100 mg tablet 100 mg PO ONCE PRN (Reason: migraine headache) Qty: 14 3RF Rx Instructions: as a single dose; may repeat once in >=2 hours after first dose if needed levothyroxine [Tirosint] 100 mcg capsule 100 mcg PO DAILY aspirin 81 mg tablet,delayed release (DR/EC) 81 mg PO DAILY nitroglycerin 0.4 mg tablet, sublingual 0.4 mg sublingual Q5M PRN (Reason: Chest Pain) Rx Instructions: do not exceed 3 doses per episode metformin 1,000 mg tablet 1,000 mg PO BID atorvastatin 80 mg tablet 80 mg PO DAILY Patient Comments: TAKES AT HS carvedilol 6.25 mg tablet 6.25 mg PO BID Rx Instructions: must administer with a meal/food acetaminophen-codeine 300-30 mg tablet 1 tablet PO QHS PRN (Reason: Pain) Jardiance 25 mg tablet 25 mg PO DAILY Entresto 24-26 mg tablet 1 tablet PO BID bumetanide 1 mg tablet 1 mg PO .twice weekly Rx Instructions: Says takes twice a week on Mondays and . Nurtec ODT 75 mg tablet,disintegrating 75 mg PO ONCE PRN (Reason: pain) Rx Instructions: as a single dose ondansetron 8 mg tablet,disintegrating 8 mg PO Q12H Patient Comments: PRN Brilinta 60 mg tablet 60 mg PO BID cyclobenzaprine 10 mg Tablet 10 mg PO TID PRN (Reason: Muscle Spasms) 10 Days Qty: 30 0RF oxycodone 5 mg Tablet 5 mg PO Q4H PRN (Reason: Pain Rated 4-6) 7 Days Qty: 42 0RF dicyclomine 10 mg capsule 10 mg PO QID Qty: 14 0RF ondansetron 4 mg tablet,disintegrating 4 mg PO Q8H PRN (Reason: nausea and vomiting) Qty: 14 0RF duloxetine 30 mg capsule,delayed release(DR/EC) 60 mg PO DAILY Patient Comments: AT HS tizanidine 2 mg tablet See Rx Instructions .ROUTE .COMPLEX Qty: 120 0RF Dose Instruction: TAKE 1 TABLET BY MOUTH EVERY 6 TO 8 HOURS NEEDED FOR MUSCLE SPASTICITY Rx Instructions: TAKE 1 TABLET BY MOUTH EVERY 6 TO 8 HOURS NEEDED FOR MUSCLE SPASTICITY Follow-up/Referrals: Johnathan,MARTINE Kim [Primary Care Provider] - Pérez Merlos MD [Physician] -
[2024-06-19] MEDS: diazePAM INJ (*CRX) 10 MG/2 ML SYRINGE 5 MG IM (21:40)
[2024-06-19] MEDS: KETOROLAC 30 MG/ML VIAL (*BKC) IM (21:40)
[2024-06-19] MEDS: ACETAMINOPHEN 500 MG TABLET 1000 MG PO (21:41)
[2024-06-19 21:45] VITALS: BP 152/89; PULSE 89; RESP 16; O2SAT 100
--- NOTE | 2024-06-19 23:03 | PC.NURSE ---
MARTINE Mooney notified of pt. 8 pain.
--- NOTE | 2024-06-19 23:12 | PC.NURSE ---
Report received from JENNYFER Lucas. Assumed care of patient at this time.
[2024-06-19] MEDS: ONDANSETRON INJ 4 MG/2 ML VIAL IV PUSH (23:20)
[2024-06-19] MEDS: MORPHINE SULFATE (*CRX) 4 MG/ML INJ IV PUSH (23:20)
[2024-06-19 23:29] LABS: Basophils Percent Auto 0.4 % (0.2-1.2); Eosinophils Absolute Auto 0.1 K/mm3 (0-0.3); Eosinophils Percent Auto 1.7 % (0-4.4); Hematocrit 31.9 % (37.0-47.0); Hemoglobin 10.1 g/dL (12.0-15.0); Immature Granulocyte Absolute 0.03 K/mm3 (0.00-0.031); Immature Granulocyte Percent A 0.4 % (0-0.5); Lymphocytes Absolute Auto 2.06 K/mm3 (0.9-3.2); Lymphocytes Percent Auto 25.6 % (18.3-44.2); Mean Corpuscular HGB Conc 31.7 g/dl (32-36); Mean Corpuscular Hemoglobin 25.6 pg (26-34); Mean Platelet Volume 8.6 fl (7.4-10.4); Monocytes Absolute Auto 0.7 K/mm3 (0.1-0.6); Monocytes Percent Auto 8.1 % (2.6-8.5); Neutrophils Absolute Auto 5.1 K/mm3 (1.3-6.7); Neutrophils Percent Auto 63.8 % (45.5-73.1); Platelet Count Result 361 k/mm3 (150-375); Red Blood Count 3.94 M/mm3 (4.2-5.4); Red Cell Distribution Width 12.4 % (11.5-14.5)
[2024-06-19 23:38] LABS: Alanine Aminotransferase 11 U/L (6-35); Albumin Level 3.7 g/dL (3.5-5.1); Alkaline Phosphatase 114 U/L (38-126); Anion Gap 11 mmol/L (4-12); Aspartate Amino Transferase 23 U/L (14-36); Bilirubin,Total 0.6 mg/dL (0.2-1.3); Blood Urea Nitrogen 18 mg/dL (7-17); Calcium 9.2 mg/dL (8.4-10.2); Carbon Dioxide 28 mmol/L (22-30); Chloride 99 mmol/L (98-107); Estimated CRCL calculation 64 ml/min; Estimated Glomerular Filt Rate > 60; Glucose 87 mg/dL (65-110); Sodium 138 mmol/L (137-145)
--- NOTE | 2024-06-19 23:38 | PC.NURSE ---
Patient taken to CT at this time via stretcher.
[2024-06-20] MEDS: oxyCODONE HCL (*CRX) 5 MG TAB IR 10 MG PO (01:15)
[2024-06-20 01:41] VITALS: PULSE 85; RESP 17; O2SAT 98
== END 2024-06-20 02:34 | disposition home or self-care (01) ==
PROVIDERS: Emergency Provider Physician Assistant; PCP Physician Assistant Medical
DX: M54.42 Lumbago with sciatica, left side (principal); Z79.82 Long term (current) use of aspirin; E03.9 Hypothyroidism, unspecified; E11.9 Type 2 diabetes mellitus without complications; E78.5 Hyperlipidemia, unspecified; I10 Essential (primary) hypertension
CPT/HCPCS: 36415; 72132; 80053; 85025; 96372; 96374; 96375; 99284; A9270; J1885; J2270; J2405; J3360; Q9967

== ENCOUNTER 2024-07-12 16:20 | Outpatient (CLI) | payer MEDICARE, MEDICAID, SELFPAY ==
--- NOTE | ~2024-07-12 | XR_ITS ---
Lumbosacral Spine: AP and lateral views Clinical History: Pain Findings: The normal lordotic curve is maintained. There is posterior and interbody fusion from L4 to L5. Lucency overlying the L4 vertebral body on lateral view may be due to overlying bowel contents. Remaining disc spaces are preserved. There is mild facet arthropathy. The sacroiliac joints are trish lly outlined. Impression: Posterior and interbody fusion from L4 to L5. Probable minimal degenerative spondylitic changes otherwise. Reviewed, dictated and finalized at location [facility] Impression: Posterior and interbody fusion from L4 to L5. Probable minimal degenerative spondylitic changes otherwise.
--- OUTSIDE RECORDS SUMMARY | 2024-07-12 18:36 | XMS_ITS | Clinical Summary ---
Author Organization [facility] Address [address] [place] [address] Phone Care Team Providers Care Line Patrolman Name Role Phone EUFEMIA GRIMES, DENNISE Gorman Unavailable [phone] CAMPOS WHEELER MD Primary Care Provider [phone] Reason for Visit and Chief Complaint RX ISSUE/REFILL Problems Includes: Problems addressed during this encounter and other active Problems All Visits Onset Date Resolved Date Provider Condition S tatus Coronary Artery Disease Unknown JANAE Shane PELON ENGINEERING SPECIALIST TECHNICIAN-FPA, SEAM FELLER-BC Active Last Documented On 3 10:16AM ; [facility] Diabetes Mellitus Unknown JANAE Shane PELON APR N-FPA, SEAM FELLER-BC Active Last Documented On 3 10:18AM ; [facility] Hypothyroidism Unknown JANAE Shane PELON ENGINEERING SPECIALIST TECHNICIAN-F PA, SEAM FELLER-BC Active Last Documented On 3 10:18AM ; [facility] Plan of Treatment No [...] On 4 4:06PM By DENNISE GRIMES ; [facility] New / Renewed during this visit DENNISE GRIMES on 06/12/2023 Acetaminophen-Codeine 300-30 MG Oral Tablet Provider: DENNISE HERNANDEZ 30 day supply: 60 tablet, 0 refills Diagnosis: Spinal stenosis, lumbar region with neurogenic claudication 1 po bid prn/ max 2 per day Pharmacy: [facility] - [id number] [facility], [phone] - Last Documented On 4 10:00AM [facility] ; [facility] Current Medications (continue as prescribed) Linzess 145 MCG Oral Capsule 11/03/2023 Provider: ISIDORO SCHMIDT Diagnosis: Constipation, un specified TAKE 1 CAPSULE BY MOUTH DAILY Last Documented On 4 1:40PM By JANAE [facility] ; [facility] tiZANidine HCl 2 MG Oral Tablet 10/24/2023 Provider: JANAE HENNING SEAM FELLER-CHRISTOFER Diagnosis: TAKE 1 TABLET BY MOUTH 2 TO 3 TIMES PER DAY NEEDED Last Documented On 4 10:26AM By JANAE BIRD [facility] ; [facility] Acetaminophen-Codeine 300-30 MG Oral Tablet 10/08/2023 Provider: DENNISE HERNANDEZ Diagnosis: Spinal stenosis, lumbar region with neurogenic claudication 1 po bid prn/ max 2 per day Last Documented On 4 9:26AM By [facility] ; [facility] Ozempic (0.25 or 0.5 MG/DOSE ) 2 MG/3ML Subcutaneous Solution Pen-injector 10/02/2023 Provider: Diagnosis: Last Documented On 10/07/2023 1:34PM By Laura RIVERA ; [facility] Ubrelvy 100 MG Oral Tablet 09/18/2023 Provider: Diagnosis: Last Documented On 10/07/2023 1:35PM By Laura RIVERA ; [facility] Qulipta 60 MG Oral Tablet 09/11/2023 Provider: Diagnosis: Last Documented On 10/07/2023 1:34PM By Laura RIVERA ; [facility] tiZANidine HCl 2 MG Oral Tablet 08/13/2023 Provider: JANAE BIRD APRN-FPA, [facility] Diagnosis: TAKE 1 TABLET BY MOUTH 2 TO 3 TIMES PER DAY NEEDED Last Documented On 4 12:03PM By JANAE BIRD [facility] ; [facility] Gentamicin Sulfate 0.1% External Ointment 07/11/2023 Provider: JW MARIN DPM Diagnosis: Last Documented On 10/07/2023 1:33PM By Laura RIVERA ; [facility] Gabapentin 600 MG Oral Tablet 06/23/2023 Provider: DENNISE FALL [facility] 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 TAKE 1 TABLET BY MOUTH THREE TIMES DAILY Last Documented On 4 8:40AM [facility] ; [facility] DULoxetine HCl 60 MG Oral Capsule Delayed Release Particles 06/23/2023 Provider: DENNISE HERNANDEZ [facility] Diagnosis: Chronic pain syn drome TAKE 1 CAPSULE BY MOUTH DAILY Last Documented On 4 8:40AM By [facility] ; [facility] Santyl 250 UNIT/GM External Ointment 06/06/2023 Prov ider: JW MARIN DPM Diagnosis: Last Documented On 10/07/2023 1:34PM By Laura RIVERA ; [facility] Bumetanide 1 MG Oral Tablet 09/13/2022 Provider: Diagnosis: Last Documented On 3 10:28AM By Laura RIVERA ; [facility] Kerendia 20 MG Oral Tablet 03/03/2022 Provider: Diagnosis: Last Documented On 03/14/2022 3:11PM By Laura RIVERA ; [facility] Brilinta 90 MG Oral Tablet 02/19/2022 Provider: Diagnosis: Last Documented On 03/14/2022 3:12PM By Laura RIVERA ; [facility] Carvedilol 6.25 MG Oral Tablet 01/26/2022 Provider: Diagnosis: Last Documented On 03/14/2022 3:06PM By Laura RIVERA ; [facility] Entresto 24-26 MG Oral Tablet 01/25/2022 Provider: Diagnosis: Last Documented On 03/14/2022 3:13PM By Laura RIVERA ; [facility] Jardiance 25 MG Oral Tablet 09/03/2021 Provider: Diagnosis: Last Documented On 09/20/2021 9:45AM By Laura RIVERA ; [facility] Aspirin 81 MG Oral Capsule 08/21/2021 Provider: Diagnosis: Last Documented On 08/21/2021 1:34PM By Laura RIVERA ; [facility] Nitroglycerin 0.4 MG Sublingual Tablet Sublingual 09/2021 Provider: Diagnosis: Last Documented On 08/21/2021 1:36PM By Laura RIVERA ; [facility] metFORMIN HCl 1000 MG Oral Tablet 08/20/2021 Provide r: CAMPOS WHEELER MD Diagnosis: Last Documented On 08/21/2021 1:30PM By Laura RIVERA ; [facility] Levothyroxine Sodium 100 MCG Oral Tablet 08/20/2021 Provider: CAMPOS WHEELER MD Diagnosis: Last Documented On 08/21/2021 1:30PM By Laura RIVERA ; [facility] Topiramate 25 MG Oral Tablet 2021 Provider: Diagnosis: Last Documented On 08/21/2021 1:31PM By Laura RIVERA ; [facility] Atorvastatin Calcium 40 MG Oral Tablet 08/09/2021 Pr ovider: CAMPOS WHEELER MD Diagnosis: Last Documented On 08/21/2021 1:31PM By Laura RIVERA ; [facility] Past Medications on file Bumetanide 1 MG Oral Tablet 05/23/2022 - 06/22/2022 Pr ovider: Diagnosis: Last Documented On 3 10:20AM By JANAE TURNER ; [facility] Medications Administered Includes: Administered Medications from this encounter No Administered Medications Recorded Results Includes: Results discussed during this encounter No Results Recorded For Specified Dates History of Present Illness Includes: History of Present Illness from this encounter No History of Present Illness Recorded Social History Description Last Updated Tobacco non-user 07/26/2022 Last Documented On 4 3:32PM ; [facility] Difficulty walking 08/21/2021 Last Documented On 4 3:32PM ; [facility] Smoking Status Unknown Procedures and Surgical History Surgical History Last Updated Pacemaker 03/14/2022 Last Documented On 4 3:32PM ; [facility] Medical History Includes: Medical History addressed during this encounter Description Last Updated Has a fear of falling. 05/23/2022 Last Documented On 4 3:32PM ; [facility] Has had a fall in the last 12 months. Last Documented On 4 3:32PM ; [facility] History of acute myocardial infarction A ugust 202103/14/2022 Last Documented On 4 3:32PM ; [facility] Currently wearing eyeglasses 03/14/2022 Last Documented On 4 3:32PM ; [facility] Deep muscle stimulation 03/14/2022 Last Documented On 4 3:32PM ; [facility] Injection/Nerve blocks 03/14/2022 Last Documented On 4 3:32PM ; [facility] Physical therapy 03/14/2022 Last Documented On 4 3:32PM ; [facility] Please list all illnesses/co nditions you have been diagnosed with: Two pinched nerves in my lower back neuropathy total right knee replacement heart disease 03/14/2022 Last Documented On 4 3:32PM ; [facility] Please list all surgeries: R ight ankle 1988 right knee scope 4x 2018 total right knee replacement carpal tunnel both hands 2004 and just on the right 2012 partial hysterectomy 2009 stent in my heart 2018 heart ablation 2019 [id number] 03/14/2022 Last Documented On 4 3:32PM ; [facility] Severe Pain 03/14/2022 Last Documented On 4 3:32PM ; [facility] Uses a cane for support 03/14/2022 Last Documented On 4 3:32PM ; [facility] Which brand of pacemaker/defibrillator d o you have? Biotronik 03/14/2022 Last Documented On 4 3:32PM ; [facility] Family History Includes: Family [...] Dates 1 - MEDICARE PART A CLAIMS/NGS [id number] LiveProfile 2 - MEDICAID OF [place] MEDICARE SECOND [id number] LiveProfile Clinical Notes Includes: Clinical Notes from this encounter * Progress note Date Encounter Last Documented by 06/12/2023 RX ISSUE/REFILL Last documented on 06/12/2023; 4:07 PM, DENNISE GRIMES; [facility] Active Problems & Conditions [...] in my heart 2018 heart ablation 2019 [id number]. Medical: Currently wearing eyeglasses, orthopedic history Left [...]
--- OUTSIDE RECORDS SUMMARY | 2024-07-12 18:36 | XMS_ITS | Clinical Summary ---
Author Organization [facility] Address [address] [place] [address] Phone Care Team Providers Care Check Inspector Name Role Phone EUFEMIA SYDNEY DENNISE Vita Unavailable [phone] CAMPOS WHEELER MD Primary Care Provider [phone] Reason for Visit and Chief Complaint The Chief Complaint is: 3 MO FU Problems Includes: Problems addressed during this encounter and other active Problems All Visits Onset Date Resolved Date Provider Condition S tatus Coronary Artery Disease Unknown JANAE Lynn PELON CASE MANAGER SPECIALIST-FPA, NET APPLICATION SUPPORT SPECIALIST-BC Active Last Documented On 3 10:16AM ; [facility] Diabetes Mellitus Unknown JANAE Lynn PELON APR N-FPA, NET APPLICATION SUPPORT SPECIALIST-BC Active Last Documented On 3 10:18AM ; [facility] Hypothyroidism Unknown JANAE Lynn PELON CASE MANAGER SPECIALIST-F PA, NET APPLICATION SUPPORT SPECIALIST-BC Active Last Documented On 3 10:18AM ; [facility] Plan of Treatment Education and Decision Aids were provided during visit for: Pill Count: three TYLENOL #3 Last Documented On 3 9:55AM ; [facility] Assessments Includes: Assessments from this encounter Findings - Bulging lumbar disc [M51.26 - Other intervertebral disc displacement, lumbar region] - Last Documented On 03/27/2023 10:20AM ; [facility] - Lumbar spondylosis with radiculopathy [M47.26 - Other spondylosis with radiculopathy, lumbar region] - Last Documented On 03/27/2023 10:20AM ; [facility] - Lumbar stenosis with neurogenic claudication [M48.062 - Spinal stenosis, lumbar region with neurogenic claudication] - Last Documented On 03/27/2023 10:20AM ; [facility] - Diabetic polyneuropathy [E13.42 - Other specified diabetes mellitus with diabetic polyneuropathy] - Last Documented On 03/27/2023 10:20AM ; [facility] - Myalgia [M79.18 - Myalgia, other site] - Last Documented On 03/27/2023 10:20AM ; [facility] - Chronic pain syndrome [G89.4 - Chronic pain syndrome] - Last Documented On 03/27/2023 10:20AM ; [facility] - 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 [Z79.891 - detention (current) use of opiate analgesic] - Last Documented On 03/27/2023 10:20AM ; [facility] Instructions Includes: Instructions from this encounter Education and Decision Aids were provided during visit for: Pill Count: three TYLENOL #3 Last Documented On 3 9:55AM ; [facility] Medical Equipment - Implanted Devices Includes: Current Devices No Medical Equipment Recorded Medications Includes: Medications discussed during this encounter and other current Medications Discontinued / Stopped on this date DENNISE GRIMES on 01/13/2023 Acetaminophen-Codeine 300-30 MG Oral Tablet Provider: DENNISE GRIMES Diagnosis: Spondylosis w/o myelopathy or radiculopathy, lumbar region Last Documented On 3 10:12AM By DENNISE GRIMES ; [facility] DULoxetine HCl 30 MG Oral Capsule Delayed Release Particles Provider: DENNISE SHIPLEY Diagnosis: Chronic pain syn drome Last Documented On 3 10:04AM By DENNISE GRIMES ; [facility] New / Renewed during this visit DENNISE GRIMES on 03/27/2023 Acetaminophen-Codeine 300-30 MG Oral Tablet Provider: DENNISE GRIMES 30 day supply: 60 tablet, 0 refills Diagnosis: Spinal stenosis, lumbar region with neurogenic claudication 1 po bid prn/ max 2 per day [facility] [address] [facility], [phone] - Last Documented On 4 4:06PM [facility] ; [facility] Current Medications (continue as prescribed) Linzess 145 MCG Oral Capsule 11/03/2023 Provider: ISIDORO SCHMIDT Diagnosis: Constipation, un specified TAKE 1 CAPSULE BY MOUTH DAILY Last Documented On 4 1:40PM By JANAE BIRD [facility] ; [facility] tiZANidine HCl 2 MG Oral Tablet 10/24/2023 Provider: JANAE HENNING NET APPLICATION SUPPORT SPECIALIST-CHRISTOFER Diagnosis: TAKE 1 TABLET BY MOUTH 2 TO 3 TIMES PER DAY NEEDED Last Documented On 4 10:26AM By JANAE NEALCHRISTOFER ; [facility] Acetaminophen-Codeine 300-30 MG Oral Tablet 10/08/2023 Provider: DENNISE GRIMES Diagnosis: Spinal stenosis, lumbar region with neurogenic claudication 1 po bid prn/ max 2 per day Last Documented On 4 9:26AM [facility] ; [facility] Ozempic (0.25 or 0.5 MG/DOSE ) 2 MG/3ML Subcutaneous Solution Pen-injector 10/02/2023 Provider: Diagnosis: Last Documented On 10/07/2023 1:34PM By Laura RIVERA ; [facility] Ubrelvy 100 MG Oral Tablet 09/18/2023 Provider: Diagnosis: Last Documented On 10/07/2023 1:35PM By Laura RIVERA ; [facility] Qulipta 60 MG Oral Tablet 09/11/2023 Provider: Diagnosis: Last Documented On 10/07/2023 1:34PM By Laura RIVERA ; [facility] tiZANidine HCl 2 MG Oral Tablet 08/13/2023 Provider: JANAE HENNING NET APPLICATION SUPPORT SPECIALISTQUINTEN Diagnosis: TAKE 1 TABLET BY MOUTH 2 TO 3 TIMES PER DAY NEEDED Last Documented On 4 12:03PM By JANAE BIRD [facility] ; [facility] Gentamicin Sulfate 0.1% External Ointment 07/11/2023 Provider: JW HARTM Diagnosis: Last Documented On 10/07/2023 1:33PM By Laura RIVERA ; [facility] Gabapentin 600 MG Oral Tablet 06/23/2023 [facility] Diagnosis: h diabetes lary litus with diabetic polyneuropathy TAKE 1 TABLET BY MOUTH THREE TIMES DAILY Last Documented On 4 8:40AM By DENNISE FALL [facility] ; [facility] DULoxetine HCl 60 MG Oral Capsule Delayed Release Particles 06/23/2023 Provider: DENNISE FALL [facility] Diagnosis: Chronic pain syn drome TAKE 1 CAPSULE BY MOUTH DAILY Last Documented On 4 8:40AM By DENNISE FALL [facility] ; [facility] Santyl 250 UNIT/GM External Ointment 06/06/2023 Prov ider: JW MARIN DPM Diagnosis: Last Documented On 10/07/2023 1:34PM By Laura RIVERA ; [facility] Bumetanide 1 MG Oral Tablet 09/13/2022 Provider: Diagnosis: Last Documented On 3 10:28AM By Laura RIVERA ; [facility] Kerendia 20 MG Oral Tablet 03/03/2022 Provider: Diagnosis: Last Documented On 03/14/2022 3:11PM By Laura RIVERA ; [facility] Brilinta 90 MG Oral Tablet 02/19/2022 Provider: Diagnosis: Last Documented On 03/14/2022 3:12PM By Laura RIVERA ; [facility] Carvedilol 6.25 MG Oral Tablet 01/26/2022 Provider: Diagnosis: Last Documented On 03/14/2022 3:06PM By Laura RIVERA ; [facility] Entresto 24-26 MG Oral Tablet 01/25/2022 Provider: Diagnosis: Last Documented On 03/14/2022 3:13PM By Laura RIVERA ; [facility] Jardiance 25 MG Oral Tablet 09/03/2021 Provider: Diagnosis: Last Documented On 09/20/2021 9:45AM By Laura RIVERA ; [facility] Aspirin 81 MG Oral Capsule 08/21/2021 Provider: Diagnosis: Last Documented On 08/21/2021 1:34PM By Laura RIVERA ; [facility] Nitroglycerin 0.4 MG Sublingual Tablet Sublingual 09/2021 Provider: Diagnosis: Last Documented On 08/21/2021 1:36PM By Laura RIVERA ; [facility] metFORMIN HCl 1000 MG Oral Tablet 08/20/2021 Provide r: CAMPOS WHEELER MD Diagnosis: Last Documented On 08/21/2021 1:30PM By Laura RIVERA ; [facility] Levothyroxine Sodium 100 MCG Oral Tablet 08/20/2021 Provider: CAMPOS WHEELER MD Diagnosis: Last Documented On 08/21/2021 1:30PM By Laura RIVERA ; [facility] Topiramate 25 MG Oral Tablet 2021 Provider: Diagnosis: Last Documented On 08/21/2021 1:31PM By Laura RIVERA ; [facility] Atorvastatin Calcium 40 MG Oral Tablet 08/09/2021 Pr ovider: CAMPOS WHEELER MD Diagnosis: Last Documented On 08/21/2021 1:31PM By Laura RIVERA ; [facility] Past Medications on file Bumetanide 1 MG Oral Tablet 05/23/2022 - 06/22/2022 Pr ovider: Diagnosis: Last Documented On 10:20AM By JANAE TURNER ; [facility] Medications Administered Includes: Administered Medications from this encounter No Administered Medications Recorded Vital Signs Includes: Vital Signs from this encounter Vital Name 03/27/2023 09:48A Blood Pressure Sitting L 86/62 Pulse Rate-Sitting (bpm) 80 Temp-Temporal 96.6 Height (in) 65 Weight (lb) 134 Body Mass Index 22.3 Body Surface Area 1.7 Pain Level 6 Oxygen Saturation (%) 99 Last Documented: On 03/27/2023 9:51AM ; [facility] Results Includes: Results discussed during this encounter [...] is scheduled to have surgery 06/10/23 at [facility]. She continues tylenol #3 as needed [...] muscle tightness and pressure. With her recent IL and hypotension we will avoid further medication. [...] comorbidities. Patient suffered a myocardial infarction and [place] and continues to be weak and hypotensive. [...] days. 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 Numbness and tingling in feet causes falls. After right knee replacement there was an increase in lateral thigh/knee numbness and more falls. Her neurologist placed her on permanent restrictions due to gait instability and she is now on disability. She had worked at [employer] for over 20 years. Gabapentin 300mg TID [...] tid and will do so if her edging catcher is ok with this, she is seeing [...] 07/26/2022 Last Documented On 3 9:48AM ; [facility] Difficulty walking 08/21/2021 Last Documented On 3 9:48AM ; [facility] Smoking Status Unknown Procedures and Surgical History Includes: Procedures from this encounter Procedures Code Diagnosis Performing Provider Service L ocation Service Date use of tobacco assessment performed 1000F Last Documented On 3 9:55AM ; [facility] review of medications documented 1160F Last Documented On 3 9:55AM ; [facility] screening for adult depression: impressi on and score seven Last Documented On 3 9:48AM ; [facility] standardized depression screening: posit arcadio for symptoms Last Documented On 3 9:48AM ; [facility] Clinical summary provided to patient Last Documented On 3 9:48AM ; [facility] SOAPP-R: total score 4 Last Documented On 3 9:48AM ; [facility] Surgical History Last Updated Pacemaker 03/14/2022 Last Documented On 3 9:48AM ; [facility] Medical History Includes: Medical History addressed during this encounter Description Last Updated Has a fear of falling. 05/23/2022 Last Documented On 3 9:48AM ; [facility] Has had a fall in the last 12 months. Last Documented On 3 9:48AM ; [facility] History of acute myocardial infarction A ugust 202103/14/2022 Last Documented On 3 9:48AM ; [facility] Currently wearing eyeglasses 03/14/2022 Last Documented On 3 9:48AM ; [facility] Deep muscle stimulation 03/14/2022 Last Documented On 3 9:48AM ; [facility] Injection/Nerve blocks 03/14/2022 Last Documented On 3 9:48AM ; [facility] Physical therapy 03/14/2022 Last Documented On 3 9:48AM ; [facility] Please list all illnesses/co nditions you have been diagnosed with: Two pinched nerves in my lower back neuropathy total right knee replacement heart disease 03/14/2022 Last Documented On 3 9:48AM ; [facility] Please list all surgeries: R ight ankle 1988 right knee scope 4x 2018 total right knee replacement carpal tunnel both hands 2004 and just on the right 2012 partial hysterectomy 2009 stent in my heart 2018 heart ablation 2019 [id number] 03/14/2022 Last Documented On 3 9:48AM ; [facility] Severe Pain 03/14/2022 Last Documented On 3 9:48AM ; [facility] Uses a cane for support 03/14/2022 Last Documented On 3 9:48AM ; [facility] Which brand of pacemaker/defibrillator d o you have? Biotronik 03/14/2022 Last Documented On 3 9:48AM ; [facility] Family History Includes: Family History addressed during this encounter Description Last Updated Family history of Arthritis 03/14/2022 Last Documented On 3 9:48AM ; [facility] Family history of ischemic heart disease 03/14/2022 Last Documented On 3 9:48AM ; [facility] Family history of stroke/paralysis 03/14 Last Documented On 3 9:48AM ; [facility] Paternal history of Arthritis 03/14/2022 Last Documented On 3 9:48AM ; [facility] Paternal history of family history of is chemic heart disease 03/14/2022 Last Documented On 3 9:48AM ; [facility] Review of Systems Includes: Review of Systems [...] Diagnosis PAIN MANAGEMENT FOLLOW UP DENNISE FALL [facility] 023 9:32AM 10:11AM Chronic Pain Syndrome,Bulging Intervertebral Disc Lumbar,Polyneurop athy Diabetic,Spinal Stenosis Lumbar with Neurogenic Claudication,Spon dylosis with Radiculopathy Lumbar Region,Furniture Shampooer Use of Opiate Analgesic,Myalgia , Other Site (M79.18) Insurance Includes: Active Insurance Policies Plan Name Member ID Group # Subscriber Relationship Effect arcadio Dates 1 - MEDICARE PART A CLAIMS/NGS [id number] ANAM [employer] DOLLAR Self 2 - MEDICAID OF [place] MEDICARE SECOND [id number] ANAM K DOLLAR Self Clinical Notes Includes: Clinical Notes from this encounter * Progress note Date Encounter Last Documented by 03/27/2023 PAIN MANAGEMENT FOLLOW UP Last d ocumented on 03/27/2023; 10:20 AM, DENNISE FALL ANP-; [facility] Active [...] is scheduled to have surgery 06/10/23 at [facility]. She continues tylenol #3 as needed [...] muscle tightness and pressure. With her recent IL and hypotension we will avoid further medication. [...] comorbidities. Patient suffered a myocardial infarction and [place] and continues to be weak and hypotensive. [...] days. 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 Numbness and tingling in feet causes falls. After right knee replacement there was an increase in lateral thigh/knee numbness and more falls. Her neurologist placed her on permanent restrictions due to gait instability and she is now on disability. She had worked at [employer] for over 20 years. Gabapentin 300mg TID [...] tid and will do so if her edging catcher is ok with this, she is seeing [...] Which brand of pacemaker/defibrillator do you have? Biotroni[employer]MyEye, Please list all illnesses/conditions you have been diagnosed with: Two pinched nerves in my lower back neuropathy total right knee replacement heart disease, and Please list all surgeries: Right ankle 1988 right knee scope 4x 2018 total right knee replacement carpal tunnel both hands 2004 and just on the right 2012 partial hysterectomy 2009 stent in my heart 2018 heart ablation 2019 [id number]. Medical: Currently wearing eyeglasses, orthopedic history Left [...] syndrome [G89.4 - Chronic pain syndrome] - detention use of opiate analgesic [Z79.891 - detention (current) use of opiate analgesic] Therapy - [...] but may be subject to typographical or engineering specialist errors. Verify all diagnoses, medications, dosages, and patient instructions with patient and/or the originator of this document. Care Team - DAVID SHETTY- - Pain Management Health Reminders - Assess BMI satisfied 03/27/2023. - Assess Need for CT Lung Screen satisfied 03/27/2023. - Assess Tobacco Use satisfied 03/27/2023. - Depression Screening satisfied 03/27/2023.
--- OUTSIDE RECORDS SUMMARY | 2024-07-12 18:36 | XMS_ITS | Clinical Summary ---
Author Organization [facility] Address [address] [place] [address] Phone Care Team Providers Care Maintenance Planner Name Role Phone EUFEMIA GRIMES, DENNISE Gorman Unavailable [phone] CAMPOS WHEELER MD Primary Care Provider [phone] Reason for Visit and Chief Complaint RX ISSUE/REFILL Problems Includes: Problems addressed during this encounter and other active Problems All Visits Onset Date Resolved Date Provider Condition S tatus Coronary Artery Disease Unknown [employer]-FPA, [employer]-BC Active Last Documented On 3 10:16AM ; [facility] Diabetes Mellitus Unknown JANAE BIRD APR N-FPA, [employer]-BC Active Last Documented On 3 10:18AM ; [facility] Hypothyroidism Unknown [employer]-F PA, [employer]BC Active Last Documented On 3 10:18AM ; [facility] Plan of [...] On 4 10:00AM By DENNISE GRIMES ; [facility] Current Medications (continue as prescribed) Linzess 145 MCG Oral Capsule 11/03/2023 Provider: JANAE BIRD APRN- FPA [facility] Diagnosis: Constipation, un specified TAKE 1 CAPSULE BY MOUTH DAILY Last Documented On 4 1:40PM By JANAE BIRD [facility] ; [facility] tiZANidine HCl 2 MG Oral Tablet 10/24/2023 Provider: JANAE BIRD APRN-FPA [facility] Diagnosis: TAKE 1 TABLET BY MOUTH 2 TO 3 TIMES PER DAY NEEDED Last Documented On 4 10:26AM By JANAE BIRD [facility] ; [facility] Acetaminophen-Codeine 300-30 MG Oral Tablet 10/08/2023 Provider: DENNISE GRIMES Diagnosis: Spinal stenosis, lumbar region with neurogenic claudication 1 po bid prn/ max 2 per day Last Documented On 4 9:26AM By DENNISE HERNANDEZ ; [facility] Ozempic (0.25 or 0.5 MG/DOSE ) 2 MG/3ML Subcutaneous Solution Pen-injector 10/02/2023 Provider: Diagnosis: Last Documented On 10/07/2023 1:34PM By Laura RIVERA ; [facility] Ubrelvy 100 MG Oral Tablet 09/18/2023 Provider: Diagnosis: Last Documented On 10/07/2023 1:35PM By Laura RIVERA ; [facility] Qulipta 60 MG Oral Tablet 09/11/2023 Provider: Diagnosis: Last Documented On 10/07/2023 1:34PM By Laura RIVERA ; [facility] tiZANidine HCl 2 MG Oral Tablet 08/13/2023 Provider: JANAE BIRD APRN-ALTHEA [facility] Diagnosis: TAKE 1 TABLET BY MOUTH 2 TO 3 TIMES PER DAY NEEDED Last Documented On 4 12:03PM By JANAE BIRD [facility] ; [facility] Gentamicin Sulfate 0.1% External Ointment 07/11/2023 Provider: JW MARIN DPM Diagnosis: Last Documented On 10/07/2023 1:33PM By Laura RIVERA ; [facility] Gabapentin 600 MG Oral Tablet 06/23/2023 Provider: DENNISE HERNANDEZBC Diagnosis: [facility] diabetes lary litus with diabetic polyneuropathy TAKE 1 TABLET BY MOUTH THREE TIMES DAILY Last Documented On 4 8:40AM By DENNISE FALL [facility] ; [facility] DULoxetine HCl 60 MG Oral Capsule Delayed Release Particles 06/23/2023 Provider: DENNISE FALL [facility] Diagnosis: Chronic pain syn drome TAKE 1 CAPSULE BY MOUTH DAILY Last Documented On 4 8:40AM By DENNISE FALL [facility] ; [facility] Santyl 250 UNIT/GM External Ointment 06/06/2023 Prov ider: JW MARIN DPM Diagnosis: Last Documented On 10/07/2023 1:34PM By Laura RIVERA ; [facility] Bumetanide 1 MG Oral Tablet 09/13/2022 Provider: Diagnosis: Last Documented On 3 10:28AM By Laura RIVERA ; [facility] Kerendia 20 MG Oral Tablet 03/03/2022 Provider: Diagnosis: Last Documented On 03/14/2022 3:11PM By Laura RIVERA ; [facility] Brilinta 90 MG Oral Tablet 02/19/2022 Provider: Diagnosis: Last Documented On 03/14/2022 3:12PM By Laura RIVERA ; [facility] Carvedilol 6.25 MG Oral Tablet 01/26/2022 Provider: Diagnosis: Last Documented On 03/14/2022 3:06PM By Laura RIVERA ; [facility] Entresto 24-26 MG Oral Tablet 01/25/2022 Provider: Diagnosis: Last Documented On 03/14/2022 3:13PM By Laura RIVERA ; [facility] Jardiance 25 MG Oral Tablet 09/03/2021 Provider: Diagnosis: Last Documented On 09/20/2021 9:45AM By Laura RIVERA ; [facility] Aspirin 81 MG Oral Capsule 08/21/2021 Provider: Diagnosis: Last Documented On 08/21/2021 1:34PM By Laura RIVERA ; [facility] Nitroglycerin 0.4 MG Sublingual Tablet Sublingual 09/2021 Provider: Diagnosis: Last Documented On 08/21/2021 1:36PM By Laura RIVERA ; [facility] metFORMIN HCl 1000 MG Oral Tablet 08/20/2021 Provide r: CAMPOS WHEELER MD Diagnosis: Last Documented On 08/21/2021 1:30PM By Laura RIVERA ; [facility] Levothyroxine Sodium 100 MCG Oral Tablet 08/20/2021 Provider: CAMPOS WHEELER MD Diagnosis: Last Documented On 08/21/2021 1:30PM By Laura RIVERA ; [facility] Topiramate 25 MG Oral Tablet 2021 Provider: Diagnosis: Last Documented On 08/21/2021 1:31PM By Laura RIVERA ; [facility] Atorvastatin Calcium 40 MG Oral Tablet 08/09/2021 Pr ovider: CAMPOS WHEELER MD Diagnosis: Last Documented On 08/21/2021 1:31PM By Laura RIVERA ; [facility] Past Medications on file Bumetanide 1 MG Oral Tablet 05/23/2022 - 06/22/2022 Pr ovider: Diagnosis: Last Documented On 3 10:20AM By JANAE BIRD [facility] ; [facility] Medications Administered Includes: Administered Medications from this encounter No Administered Medications Recorded Results Includes: Results discussed during this encounter No Results Recorded For Specified Dates History of Present Illness Includes: History of Present Illness from this encounter No History of Present Illness Recorded Social History Description Last Updated Tobacco non-user 07/26/2022 Last Documented On 4 1:47PM ; [facility] Difficulty walking 08/21/2021 Last Documented On 4 1:47PM ; [facility] Smoking Status Unknown Procedures and Surgical History Surgical History Last Updated Pacemaker 03/14/2022 Last Documented On 4 1:47PM ; [facility] Medical History Includes: Medical History addressed during this encounter Description Last Updated Has a fear of falling. 05/23/2022 Last Documented On 4 1:47PM ; [facility] Has had a fall in the last 12 months. Last Documented On 4 1:47PM ; [facility] History of acute myocardial infarction A ugust 202103/14/2022 Last Documented On 4 1:47PM ; [facility] Currently wearing eyeglasses 03/14/2022 Last Documented On 4 1:47PM ; [facility] Deep muscle stimulation 03/14/2022 Last Documented On 4 1:47PM ; [facility] Injection/Nerve blocks 03/14/2022 Last Documented On 4 1:47PM ; [facility] Physical therapy 03/14/2022 Last Documented On 4 1:47PM ; [facility] Please list all illnesses/co nditions you have been diagnosed with: Two pinched nerves in my lower back neuropathy total right knee replacement heart disease 03/14/2022 Last Documented On 4 1:47PM ; [facility] Please list all surgeries: R ight ankle 1988 right knee scope 4x 2018 total right knee replacement carpal tunnel both hands 2003 and just on the right 2012 partial hysterectomy 2009 stent in my heart 2018 heart ablation 2019 [id number] 03/14/2022 Last Documented On 4 1:47PM ; [facility] Severe Pain 03/14/2022 Last Documented On 4 1:47PM ; [facility] Uses a cane for support 03/14/2022 Last Documented On 4 1:47PM ; [facility] Which brand of pacemaker/defibrillator d o you have? Biotron[employer] 03/14/2022 Last Documented On 4 1:47PM ; [facility] Family History Includes: Family History addressed during [...] Dates 1 - MEDICARE PART A CLAIMS/NGS [id number] [facility] [place] 2 - MEDICAID [place] MEDICARE SECOND [id number] [facility] [place] Clinical Notes Includes: Clinical Notes from this encounter * Progress note Date Encounter Last Documented by 07/18/2023 RX ISSUE/REFILL Last documented on 07/21/2023; 10:00 AM, DENNISE FALL ANP-; [facility] Active Problems & Conditions - [...] ~ pt phone # for Return call: [phone] ~Last Drug Screen:09/03/22 ~Date/Initials: 07/18/23 CB. Past Medical/Surgical History Reported: Injection/Nerve blocks, Deep muscle stimulation, Physical therapy, Which brand of pacemaker/defibrillator do you have? [email or web address], Please list all illnesses/conditions you have been diagnosed with: Two pinched nerves in my lower back neuropathy total right knee replacement heart disease, and Please list all surgeries: Right ankle 1988 right knee scope 4x 2018 total right knee replacement carpal tunnel both hands 2004 and just on the right 2012 partial hysterectomy 2009 stent in my heart 2018 heart ablation 2019 [id number]. Medical: Currently wearing eyeglasses, orthopedic history Left [...]
--- OUTSIDE RECORDS SUMMARY | 2024-07-12 18:36 | XMS_ITS | Clinical Summary ---
Author Organization [facility] Address [address] [place] [address] Phone Care Team Providers Care Chest Pain Coordinator Name Role Phone EUFEMIA SYDNEY DENNISE Vita Unavailable [phone] CAMPOS WHEELER MD Primary Care Provider [phone] Reason for Visit and Chief Complaint The [...] tatus Coronary Artery Disease Unknown JANAE BIRD WAREHOUSE SHIPPING RECEIVING CLERK-FPA, PIGMENT PROCESSOR-BC Active Last Documented On 3 10:16AM ; [facility] Diabetes Mellitus Unknown JANAE BIRD APR N-FPA, PIGMENT PROCESSOR-BC Active Last Documented On 3 10:18AM ; [facility] Hypothyroidism Unknown JANAE BIRD WAREHOUSE SHIPPING RECEIVING CLERK-F PA, PIGMENT PROCESSOR-BC Active Last Documented On 3 10:18AM ; [facility] Plan of Treatment Education and Decision Aids were provided during visit for: Pill Count: seven TYLENOL #3 Last Documented On 4 1:36PM ; [facility] Assessments Includes: Assessments from this encounter Findings - Bulging lumbar disc [M51.26 - Other intervertebral disc displacement, lumbar region] - Last Documented On 10/08/2023 9:10AM ; [facility] - Lumbar spondylosis with radiculopathy [M47.26 - Other spondylosis with radiculopathy, lumbar region] - Last Documented On 10/08/2023 9:10AM ; [facility] - Lumbar stenosis with neurogenic claudication [M48.062 - Spinal stenosis, lumbar region with neurogenic claudication] - Last Documented On 10/08/2023 9:10AM ; [facility] - Diabetic polyneuropathy [E13.42 - Other specified diabetes mellitus with diabetic polyneuropathy] - Last Documented On 10/08/2023 9:10AM ; [facility] - Myalgia [M79.18 - Myalgia, other site] - Last Documented On 10/08/2023 9:10AM ; [facility] - Chronic pain syndrome [G89.4 - Chronic pain syndrome] - Last Documented On 10/08/2023 9:10AM ; [facility] - long-term use of opiate analgesic [Z79.891 - 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) use of opiate analgesic] - Last Documented On 10/08/2023 9:10AM ; [facility] Instructions Includes: Instructions from this encounter Education and Decision Aids were provided during visit for: Pill Count: seven TYLENOL #3 Last Documented On 4 1:36PM ; [facility] Medical Equipment - Implanted Devices Includes: Current Devices No Medical Equipment Recorded Medications Includes: Medications discussed during this encounter and other current Medications Discontinued / Stopped on this date DENNISE GRIMES on 10/03/2023 Linzess 145 MCG Oral Capsule Provider: DENNISE GRIMES Diagnosis: Last Documented On 10/07/2023 1:35PM By Laura RIVERA ; [facility] Vascepa 1 GM Oral Capsule Provider: Diagnosis: Last Documented On 10/07/2023 1:35PM By Laura RIVERA ; [facility] Current Medications (continue as prescribed) Linzess 145 MCG Oral Capsule 11/03/2023 Provider: ISIDORO SCHMIDT Diagnosis: Constipation, un specified TAKE 1 CAPSULE BY MOUTH DAILY Last Documented On 4 1:40PM By JANAE CHAUDHRY ; [facility] tiZANidine HCl 2 MG Oral Tablet 10/24/2023 Provider: JANAE G PELON WAREHOUSE SHIPPING RECEIVING CLERK-FPA, PIGMENT PROCESSOR-BC Diagnosis: TAKE 1 TABLET BY MOUTH 2 TO 3 TIMES PER DAY NEEDED Last Documented On 4 10:26AM By JANAE BIRD [facility] ; [facility] Acetaminophen-Codeine 300-30 MG Oral Tablet 10/08/2023 Provider: DENNISE HERNANDEZ Diagnosis: Spinal stenosis, lumbar region with neurogenic claudication 1 po bid prn/ max 2 per day Last Documented On 4 9:26AM [facility] ; [facility] Ozempic (0.25 or 0.5 MG/DOSE ) 2 MG/3ML Subcutaneous Solution Pen-injector 10/02/2023 Provider: Diagnosis: Last Documented On 10/07/2023 1:34PM By Laura RIVERA ; [facility] Ubrelvy 100 MG Oral Tablet 09/18/2023 Provider: Diagnosis: Last Documented On 10/07/2023 1:35PM By Laura RIVERA ; [facility] Qulipta 60 MG Oral Tablet 09/11/2023 Provider: Diagnosis: Last Documented On 10/07/2023 1:34PM By Laura RIVERA ; [facility] tiZANidine HCl 2 MG Oral Tablet 08/13/2023 Provider: JANAE BIRD WAREHOUSE SHIPPING RECEIVING CLERK-FPA, PIGMENT PROCESSOR-BC Diagnosis: TAKE 1 TABLET BY MOUTH 2 TO 3 TIMES PER DAY NEEDED Last Documented On 4 12:03PM By JANAE BIRD [facility] ; [facility] Gentamicin Sulfate 0.1% External Ointment 07/11/2023 Provider: JW MARIN DPM Diagnosis: Last Documented On 10/07/2023 1:33PM By Laura RIVERA ; [facility] Gabapentin 600 MG Oral Tablet 06/23/2023 Provider: DENNISE GRIMES 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 TAKE 1 TABLET BY MOUTH THREE TIMES DAILY Last Documented On 4 8:40AM By DENNISE GRIMES ; [facility] DULoxetine HCl 60 MG Oral Capsule Delayed Release Particles 06/23/2023 Provider: DENNISE BarnesBC Diagnosis: Chronic pain syn drome TAKE 1 CAPSULE BY MOUTH DAILY Last Documented On 8:40AM By DENNISE [facility]- ; [facility] Santyl 250 UNIT/GM External Ointment 06/06/2023 Prov ider: JW MARIN DPM Diagnosis: Last Documented On 10/07/2023 1:34PM By Laura RIVERA ; [facility] Bumetanide 1 MG Oral Tablet 09/13/2022 Provider: Diagnosis: Last Documented On 10:28AM By Laura RIVERA ; [facility] Kerendia 20 MG Oral Tablet 03/03/2022 Provider: Diagnosis: Last Documented On 03/14/2022 3:11PM By Laura RIVERA ; [facility] Brilinta 90 MG Oral Tablet 02/19/2022 Provider: Diagnosis: Last Documented On 03/14/2022 3:12PM By Laura RIVERA ; [facility] Carvedilol 6.25 MG Oral Tablet 01/26/2022 Provider: Diagnosis: Last Documented On 03/14/2022 3:06PM By Laura RIVERA ; [facility] Entresto 24-26 MG Oral Tablet 01/25/2022 Provider: Diagnosis: Last Documented On 03/14/2022 3:13PM By Laura RIVERA ; [facility] Jardiance 25 MG Oral Tablet 09/03/2021 Provider: Diagnosis: Last Documented On 09/20/2021 9:45AM By Laura RIVERA ; [facility] Aspirin 81 MG Oral Capsule 08/21/2021 Provider: Diagnosis: Last Documented On 08/21/2021 1:34PM By Laura RIVERA ; [facility] Nitroglycerin 0.4 MG Sublingual Tablet Sublingual 09/2021 Provider: Diagnosis: Last Documented On 08/21/2021 1:36PM By Laura RIVERA ; [facility] metFORMIN HCl 1000 MG Oral Tablet 08/20/2021 Provide r: CAMPOS WHEELER MD Diagnosis: Last Documented On 08/21/2021 1:30PM By Laura RIVERA ; [facility] Levothyroxine Sodium 100 MCG Oral Tablet 08/20/2021 Provider: CAMPOS WHEELER MD Diagnosis: Last Documented On 08/21/2021 1:30PM By Laura RIVERA ; [facility] Topiramate 25 MG Oral Tablet 2021 Provider: Diagnosis: Last Documented On 08/21/2021 1:31PM By Laura RIVERA ; [facility] Atorvastatin Calcium 40 MG Oral Tablet 08/09/2021 Pr ovider: CAMPOS WHEELER MD Diagnosis: Last Documented On 08/21/2021 1:31PM By Laura RIVERA ; [facility] Past Medications on file Bumetanide 1 MG Oral Tablet 05/23/2022 - 06/22/2022 Pr ovider: Diagnosis: Last Documented On 10:20AM By [facility] ; [facility] Medications Administered Includes: Administered Medications [...] 98 Last Documented: On 10/07/2023 1:32PM ; [facility] Results Includes: Results discussed during this encounter [...] is scheduled to have surgery 06/10/23 at [facility]. She continues tylenol #3 as needed [...] muscle tightness and pressure. With her recent [place] and hypotension we will avoid further medication. [...] days. She has an upcoming appt with cash applications analyst. Numbness and tingling in feet causes falls. After right knee replacement there was an increase in lateral thigh/knee numbness and more falls. Her neurologist placed her on permanent restrictions due to gait instability and she is now on disability. She had worked at [employer] for over 20 years. Gabapentin 300mg TID [...] tid and will do so if her technical research scientist is ok with this, she is seeing [...] 07/26/2022 Last Documented On 4 1:11PM ; [facility] Difficulty walking 08/21/2021 Last Documented On 4 1:11PM ; [facility] Smoking Status Unknown Procedures and Surgical History Includes: Procedures from this encounter Procedures Code Diagnosis Performing Provider Service L ocation Service Date use of tobacco assessment performed 1000F Last Documented On 4 1:36PM ; [facility] review of medications documented 1160F Last Documented On 4 1:36PM ; [facility] screening for adult depression: impressi on and score seven Last Documented On 4 1:11PM ; [facility] standardized depression screening: posit arcadio for symptoms Last Documented On 4 1:11PM ; [facility] Clinical summary provided to patient Last Documented On 4 1:11PM ; [facility] SOAPP-R: total score 6 Last Documented On 4 1:38PM ; [facility] Surgical History Last Updated Pacemaker 03/14/2022 Last Documented On 4 1:11PM ; [facility] Medical History Includes: Medical History addressed during this encounter Description Last Updated Has a fear of falling. 05/23/2022 Last Documented On 4 1:11PM ; [facility] Has had a fall in the last 12 months. Last Documented On 4 1:11PM ; [facility] History of acute myocardial infarction A ugust 202103/14/2022 Last Documented On 4 1:11PM ; [facility] Currently wearing eyeglasses 03/14/2022 Last Documented On 4 1:11PM ; [facility] Deep muscle stimulation 03/14/2022 Last Documented On 4 1:11PM ; [facility] Injection/Nerve blocks 03/14/2022 Last Documented On 4 1:11PM ; [facility] Physical therapy 03/14/2022 Last Documented On 4 1:11PM ; [facility] Please list all illnesses/co nditions you have been diagnosed with: Two pinched nerves in my lower back neuropathy total right knee replacement heart disease 03/14/2022 Last Documented On 4 1:11PM ; [facility] Please list all surgeries: R ight ankle 1988 right knee scope 4x 2018 total right knee replacement carpal tunnel both hands 2004 and just on the right 2013 partial hysterectomy 2009 stent in my heart 2018 heart ablation 2019 [id number] 03/14/2022 Last Documented On 4 1:11PM ; [facility] Severe Pain 03/14/2022 Last Documented On 4 1:11PM ; [facility] Uses a cane for support 03/14/2022 Last Documented On 4 1:11PM ; [facility] Which brand of pacemaker/defibrillator d o you have? Biotronik 03/14/2022 Last Documented On 4 1:11PM ; [facility] Family History Includes: Family History addressed during this encounter Description Last Updated Family history of Arthritis 03/14/2022 Last Documented On 4 1:11PM ; [facility] Family history of ischemic heart disease 03/14/2022 Last Documented On 4 1:11PM ; [facility] Family history of stroke/paralysis 03/14 Last Documented On 4 1:11PM ; [facility] Paternal history of Arthritis 03/14/2022 Last Documented On 4 1:11PM ; [facility] Paternal history of family history of is chemic heart disease 03/14/2022 Last Documented On 4 1:11PM ; [facility] Review of Systems Includes: Review of Systems [...] Diagnosis PAIN MANAGEMENT FOLLOW UP DENNISE FALL ANP-[facility] 024 1:03PM 1:58PM Chronic Pain Syndrome,Bulging Intervertebral Disc Lumbar,Polyneurop athy Diabetic,Spinal Stenosis Lumbar with Neurogenic Claudication,Spon dylosis with Radiculopathy Lumbar Region,Application Assistant Use of Opiate Analgesic,Myalgia , Other Site (M79.18) Insurance Includes: Active Insurance Policies Plan Name Member ID Group # Subscriber Relationship Effect arcadio Dates 1 - MEDICARE PART A CLAIMS/NGS [id number] [employer] 2 - MEDICAID OF [place] MEDICARE SECOND [id number] [employer] Clinical Notes Includes: Clinical Notes from this encounter * Progress note Date Encounter Last Documented by 10/07/2023 PAIN MANAGEMENT FOLLOW UP Last d ocumented on 10/08/2023; 9:10 AM, DENNISE FALL ANP-; [facility] Active Problems & Conditions [...] is scheduled to have surgery 06/10/23 at [facility]. She continues tylenol #3 as needed [...] muscle tightness and pressure. With her recent [place] and hypotension we will avoid further medication. [...] comorbidities. Patient suffered a myocardial infarction and [place] and continues to be weak and hypotensive. [...] days. She has an upcoming appt with cash applications analyst. Numbness and tingling in feet causes falls. After right knee replacement there was an increase in lateral thigh/knee numbness and more falls. Her neurologist placed her on permanent restrictions due to gait instability and she is now on disability. She had worked at [employer] for over 20 years. Gabapentin 300mg TID [...] tid and will do so if her technical research scientist is ok with this, she is seeing [...] Which brand of pacemaker/defibrillator do you have? [employer], Please list all illnesses/conditions you have been diagnosed with: Two pinched nerves in my lower back neuropathy total right knee replacement heart disease, and Please list all surgeries: Right ankle 1988 right knee scope 4x 2018 total right knee replacement carpal tunnel both hands 2003 and just on the right 2012 partial hysterectomy 2009 stent in my heart 2018 heart ablation 2019 [id number]. Medical: Currently wearing eyeglasses, orthopedic history Left [...] syndrome [G89.4 - Chronic pain syndrome] - long-term use of opiate analgesic [Z79.891 - marine [...] in about 6 weeks. Plan StartCited - long-term (current) use of opiate analgesic Lab: PRESCRIBED [...] but may be subject to typographical or painter helper errors. Verify all diagnoses, medications, dosages, and patient instructions with patient and/or the originator of this document. Care Team - DAVID SHETTY- - Pain Management Health Reminders - Assess BMI satisfied 10/07/2023. - Assess Need for CT Lung Screen satisfied 10/07/2023. - Assess Tobacco Use satisfied 10/07/2023. - Depression Screening satisfied 10/07/2023.
--- OUTSIDE RECORDS SUMMARY | 2024-07-12 18:36 | XMS_ITS | CONTINUITY OF CARE DOCUMENT ---
Author Name juan r pete Address Unknown Organization [facility] Address [address] [place] [address] Phone [phone] Care Team Providers Care Theatrical Rigger Name Role Phone Iqra HAYWARD, Hussain Hathaway Unavailable Rehan Richmond Unavailable [phone] Pérez Merlos MD Unavailable PROBLEMS Condition Status [...] In-person encounter Office Visit Hussain Escalona MD [facility] Preop cardiovasc. examination - In-person encounter Office Visit Hussain Escalona MD [facility] - In-person encounter Office Visit Hussain Escalona MD [facility] - In-person encounter Office Visit Hussain Escalona MD [facility] Hypotension - In-person encounter Office Visit Hussain Escalona MD [facility] Cardiology examination - In-person encounter Office Visit Hussain Escalona MD [facility] - In-person encounter Office Visit Hussain Escalona MD [facility] - In-person encounter Office Visit Hussain Escalona MD [facility] Mitral regurgitation - In-person encounter Office Visit oClby Obando MD [facility] CHF, acute, systolicCardiomyopathyLower extremity edema, bilateral - In-person encounter Office Visit Hussain Escalona MD [facility] - In-person encounter Office Visit Hussain Escalona MD [facility] Personal history of COVID-19, 06/2021 - In-person encounter Office Visit Hussain Escalona MD [facility] Diabetes Mellitus, Type II, uncontrolled - In-person encounter Office Visit Hussain Escalona MD [facility] - In-person encounter Office Visit Hussain Escalona MD [facility] Hypothyroidism - In-person encounter Office Visit Hussain Escalona MD [facility] Arthritis - osteo; R leg - In-person encounter Office Visit Petra Tobar MD [facility] S/P Biotronik (MRI Safe) Loop BioMonitor III - In-person encounter Office Visit Petra Tobar MD [facility] - In-person encounter Office Visit Hussain Escalona MD [facility] S/P DC AICD - Biotronik ( MRI Safe) - In-person encounter Office Visit Petra [facility] - In-person encounter Office Visit Petra [place] [facility] - In-person encounter Office Visit Hussain Escalona MD [facility] - In-person encounter Office Visit [facility]ra [facility] VENTRICULAR TACHYCARDIASVT - In-person encounter Office Visit Hussain Escalona MD [facility] - In-person encounter Office Visit Hussain Escalona MD [facility] - In-person encounter Office Visit Hussain Escalona MD [facility] - In-person encounter Office Visit Hussain Escalona MD [facility] Fatigue - In-person encounter Office Visit Hussain Escalona MD [facility] - In-person encounter Office Visit Hussain Escalona MD [facility] - In-person encounter Office Visit Hussain Escalona MD [facility] - In-person encounter Office Visit Hussain Escalona MD [facility] OSAPAD - BLE with claudicationHeadache - In-person encounter Office Visit Hussain Escalona MD [facility] HypertensionCADStent ? Drug ElutingDM - type [...] blood pressure, cuff size regular Fa modesta [place] blood pressure, diastolic 107 mm[Hg] Fa ith [place] blood pressure, systolic 152 mm[Hg] Dane ortega [place] respiratory rate E&M 17 /min Emeli Ofelia iller oxygen saturation, oximetry 99 % [facility] pulse rate 77 /min Emeli [place] weight E&M 129 [lb_av] Emeli [place] height E&M 65 [in_i] [facility] Body Mass Index (Ratio) 24.63 kg/m2 [...] Cely nkLog blood pressure, systolic 123 mm[Hg] [facility] blood pressure, diastolic 84 mm[Hg] Reena torres [place] blood pressure, systolic 123 mm[Hg] [facility] maria e [place] oxygen saturation, oximetry 96 % Jannette Alegria pulse rate 97 /min Jannette soriano blood pressure, cuff size large Reena torres [place] weight E&M 173 [lb_av] Jannette soriano respiratory rate E&M 16 /min Crystal carr [place] height E&M 65 [in_i] Jannette soriano blood pressure, diastolic 80 mm[Hg] nkLog blood pressure, systolic 120 mm[Hg] Eva [facility] Body Mass Index (Ratio) 28.29 kg/m2 Kimberly Obando MD blood pressure, cuff size large Ke rri Gruenenfeldfredrick blood pressure, diastolic 80 mm[Hg] Ke rri Gruenenfelder blood pressure, systolic 120 mm[Hg] Ker ri Gruenenfeldfredrick oxygen saturation, oximetry 98 % Tamra Gruenenfeldfredrick respiratory rate E&M 16 /min Tamra G ruenenfelder pulse rate 98 /min Tamra Gruenenfe [facility] weight E&M 170 [lb_av] Tamra Eri [facility] height E&M 65 [in_i] Tamra Eri [facility] Body Mass Index (Ratio) 25.62 kg/m2 Nilesh Escalona MD blood pressure, diastolic 94 mm[Hg] Cely nkLog blood pressure, systolic 124 mm[Hg] Eva kLogic blood pressure, cuff size large Ta ismael Van blood pressure, diastolic 94 mm[Hg] Ta ismael [place] blood pressure, systolic 124 mm[Hg] [facility] oxygen saturation, oximetry 98 % [facility] respiratory rate E&M 20 /min [facility] pulse rate 128 /min [facility] weight E&M 154.0 [lb_av] [facility] height E&M 65 [in_i] Julianne [place] Body Mass Index (Ratio) 31.61 kg/m2 Nilesh [...] Luisa denson weight E&M 190 [lb_av] Luisa denosn blood pressure, cuff size regular Shania Manning [...] blood pressure, cuff size regular Kr isflorentino Pride blood pressure, diastolic 80 mm[Hg] Kr isty Pride blood pressure, systolic 140 mm[Hg] Kri stmac Nate blood pressure, resting Yes Tico Pride pulse rate 96 /min Rebeca Nate oxygen saturation, oximetry 98 % Rebeca Nate respiratory rate E&M 18 /min Rebeca Nate [...] Chastit y Adrián height E&M 65 [in_i] [facility] ([facility] 33.11 [...] Escalona MD pulse rate 116 /min Tonsha Erynoso blood pressure, diastolic 101 mm[Hg] To nsha [...] blood pressure, diastolic 84 mm[Hg] Ch astity Adirán blood pressure, systolic 124 mm[Hg] Leidy stity [...] [place] blood pressure, systolic 122 mm[Hg] Ton [facility] weight E&M 202 [lb_av] Tonsha [place] height E&M 65 [in_i] [facility] [place] Body Mass Index (Ratio) 33.61 [...] l Body Mass Index (Ratio) 34.28 kg/m2 aDyo cynthia Lambros pulse rate 81 /min Carisa [...] blood pressure, diastolic 80 mm[Hg] Kr isty Pride blood pressure, systolic 120 mm[Hg] Kri sty Pride pulse rate 80 /min Rebeca Pride oxygen saturation, oximetry 98 % Rebeca Pride respiratory rate E&M 17 /min Rebeca Nate blood pressure, cuff size regular Kr isty Nate weight E&M 206.2 [lb_av] Rebeca Nate height E&M 65 [in_i] Rebeca Nate Body Mass Index (Ratio) 34.11 kg/m2 Nilesh [...] 0-149 High cholesterol, serum 143 mg/dL LinkLogic 140-044 1478/09 /02 hemoglobin A1C, blood, as % of [...] Not Estab. platelet count 334 X10E3/UL LinkLog[facility] 986-993 9656/09 /02 red blood cell distribution width 12.6 [...] LinkLogic 3.5-5.2 sodium, serum 136 mmol/L [facility] 663-412 0528/09 /02 urea nitrogen/creatinine ratio, serum 14 LinkLogic [...] 0-149 High cholesterol, serum 140 mg/dL [facility] 958-037 6500/12 /24 alanine aminotransferase (SGPT), serum 16 1/L [...] LinkLogic 3.5-5.2 sodium, serum 135 mmol/L [facility] 686-565 2628/12 /24 urea nitrogen/creatinine ratio, serum 17 LinkLogic [...] Not Estab. platelet count 348 X10E3/UL [facility] [phone]/07 /24 red blood cell distribution width 12.3 [...] LinkLogic 3.5-5.2 sodium, serum 141 mmol/L [facility] [phone]/07 /24 urea nitrogen/creatinine ratio, serum 16 LinkLogic 9-23 eGFR if 119 mL/min/{1.7 3_m2} LinkLogic >59 eGFR if not 104 mL/min/{1.7 3_m2} [facility] >59 creatinine, serum 0.70 mg/dL [facility] 0.57-1.00 urea nitrogen, blood 11 mg/dL LinkLogic 6-24 blood glucose, random 154 mg/dL LinkLogic 65-99 High international normalized ratio (INR) 0.9 [facility] Normal prothrombin time (patient) 10.2 s [facility] free thyroxine index 2.2 [facility]Log[facility] 1.2-4.9 triiodothyronine resin uptake 28 % LinkLogic 24-39 thyroxine, serum, total 8.0 ug/dL [facility]Logic 4.5-12.0 thyroid stimulating hormone, serum 1.430 u[IU]/mL [facility]Logic 0.450-4.500 ferritin, serum 133 ng/mL [facility] 15-150 iron saturation percent, serum 43 % [facility] 15-55 iron, serum 105 ug/dL [facility] 27-159 iron binding capacity, unsaturated 141 ug/dL [facility] 860-278 9227/01 /11 iron binding capacity, total 246 ug/dL [...] Not Estab. platelet count 360 X10E3/UL [facility] 474-816 3850/01 /11 red blood cell distribution width 13.1 [...] LinkLogic 3.5-5.2 sodium, serum 140 mmol/L [facility] 365-637 3259/11 /14 urea nitrogen/creatinine ratio, serum 23 LinkLogic [...] LinkLogic 0-149 cholesterol, serum 125 mg/dL [facility] 878-476 8650/03 /21 hemoglobin A1C, blood, as % of total hemoglobin 9.4 % [facility] 4.8-5.6 High calcium, serum 9.1 mg/dL [facility] 8.7-10.2 carbon dioxide, venous blood 22 mmol/L [facility] 20-29 chloride, serum 104 mmol/L [facility] 96-106 potassium, serum 4.0 mmol/L [facility]ic 3.5-5.2 sodium, serum 139 mmol/L [facility] 163-491 8430/03 /21 urea nitrogen/creatinine ratio, serum 13 LinkLogic [...] LinkLogic 0-149 cholesterol, serum 118 mg/dL LinkLogic 997-075 3045/09 /01 alanine aminotransferase (SGPT), serum 12 1/L [...] LinkLogic 3.5-5.2 sodium, serum 139 mmol/L [facility] 322-004 7607/09 /01 urea nitrogen/creatinine ratio, serum 20 LinkLogic [...] Take 1 tablet by mouth as [facility].25 mg tablet active TAKE 1 TABLET BY MOUTH TWICE DAILY 10/28 [facility] bumetanide 1 mg tablet active TAKE 1 TABLET BY MOUTH TWICE DAILY 07/11 Gertrude Lopez carvedilol 6.25 mg tablet completed Take 1 tablet by mouth twice a day 11/11 - 10/28 [facility] clopidogrel 75 mg tablet completed TAKE [...] a day 01/25 - 01/[address] [facility] losartan 25 mg tablet completed - 01/25 Maggie Ventimiglia [employer] tizanidine 2 mg tablet active Tamra Augustin Kerendia 20 mg tablet completed Take 1 tablet by mouth once a day 01/25 - Darline Morrow Entresto 24-26 mg tablet active Take 1 tablet by mouth twice a day 01/25 Maggie Ventimiglia [employer] carvedilol 6.25 mg tablet completed TAKE ONE TABLET BY MOUTH TWICE DAILY 01/25 - 11/11 Tamra Augustin Linzess 145 mcg capsule active Maggie Ventimiglia [employer] Jardiance 25 mg tablet active Maggie Ventimiglia [employer] losartan 25 mg tablet completed - 01/25 Maggie Ventimiglia [employer] Brilinta 90 mg tablet completed - 02/05 Jannette Alegria carvedilol 3.125 mg tablet completed - 01/25 Maggie Ventimiglia [employer] Vascepa 1 gram capsule completed TAKE 2 CAPSULES BY MOUTH TWICE DAILY 01/15 - Darline Morrow diltiazem HCl 30 mg tablet completed Take 1 tablet by mouth every eight hours 12/05 - 01/[address] [facility] aspirin 81 mg tablet,delayed release (DR/EC) active TAKE 1 TABLET BY MOUTH EVERY DAY 11/06 Tamra Augustin metoprolol succinate 100 mg tablet extended release 24 hr completed TAKE 1 TABLET BY MOUTH DAILY 09/19 - 01/25 Maggie Ventimiglia [employer] lisinopril 10 mg tablet completed TAKE 1 TABLET BY MOUTH EVERY DAY DIRECTED 08/27 - 01/25 Maggie Ventimiglia [employer] Vascepa 1 gram capsule completed - 01/15 [...] three times a day 01/16 Maggie Connor [employer] SOCIAL HISTORY Date Observation Value Provider alcohol use no Hussain marc MD smoking status Never smoker Hussain bhandari MD alcohol use no Hussain marc MD smoking status Never smoker Hussain hbandari MD social history E&M S moking History: [...] Management Plan continue current therapy Maggie Connor [employer] HRA, CV Assess/Plan, Angina (inactive) Management Plan [...] type Claudette fofana ID [place] MEDICARE Medicare [id number] [facility] Medicaid 0 [id number] ADVANCE DIRECTIVES Name Date DISCUSSED - NO DECISION MADE TREATMENT PLAN Date Name Performer [id number],C, H er updated medication list for this problem includes: Entresto 24-26 Mg Tablet (Sacubitril-valsartan) ..... Take 1 tablet by mouth twice a day Jardiance 25 Mg Tablet (Empagliflozin) Aspirin 81 Mg Tablet,delayed Release (dr/ec) (Aspirin) ..... Take 1 tablet by mouth every day Metformin 1,000 Mg Tablet (Metformin) Hussain Escalona MD [id number],C,L IPID EANEL C HOLESTEROL 101 L 140 [...] by mouth twice daily Hussain Escalona MD [id number],C, N o LISHA with current CPAP treatment. Had home sleep study done on CPAP. Has sleep issues. The patient is using CPAP on a regular basis. The patient has been benefiting from therapy and should continue use. January 10, 2023 S fadi she has lost substantial weight, currently not on CPAP Hussain Escalona MD [id number],C, P atient with EF of 20%. ICD [...] EF 68% on 01/07/22 Hussain Escalona MD [id number],C, M itral Valve: T he mitral valve is normal in appearance and function. Mild mitral valve regurgitation N oted on echo from 01/07January 10, 2023 E CHO done in 2021, needs to have done in 2022 to evaluate mitral valve. Hussain Escalona MD [id number],C, R educed her Bumex twice a week. She may need additional sodium. Continue with Bumex twice a week dizziness has improved Hussain Escalona MD [id number],S, R educed her Bumex twice a week. She may need additional sodium. Hussain Escalona MD [id number],C, Echo, [facility] N ormal left ventricular size. Mild concentric [...] pulmonary hypertension. RPM monitor Hussain Escalona MD [id number],C, t ry dilt 30 q8 and then cd 120 if improved and tolerated Hussain Escalona MD [id number],C, Negative arterial study. Sees podiatry. s he had 3rd toe right foot amputated she may have PAD causing woulnd healing issues w e can do an angio and eval for occlusive PAD however she may have microvascular disease whcih may be inhibiting wound healing c an check with PODIATRY if angio is something they are interested in geting done Hussain Escalona MD [id number],C,n o new issues p tommy on getting back injections d id ok wiht podiatry surgery Hussain Escalona MD [id number],C, D APT PLAVIX WAS HELD FOR EVALUATING IF HER FATIGUE WIOULD IMPROVE AND DID NOT CHANGE SO WILL RESUME December 05, 2021 b ack on asa plavix February 05, 2022 Currently on ASA/Brillinta for recent stent placement March 29, 2022 R emains on ASA/Brillinta no bleeding issues. Had ISR for LAD stent Hussain Escalona MD [id number],S, H er updated medication list for this problem includes: Atorvastatin 80 Mg Tablet (Atorvastatin) ..... Take 1 tablet by mouth once a day Vascepa 1 Gram Capsule (Icosapent ethyl) ..... Take 2 capsules by mouth twice daily Hussain Escalona MD [id number],S, D APT PLAVIX WAS HELD FOR EVALUATING IF HER FATIGUE WIOULD IMPROVE AND DID NOT CHANGE SO WILL RESUME December 05, 2021 b ack on asa plavix February 05, 2022 Currently on ASA/Brillinta for recent stent placement March 29, 2022 R emains on ASA/Brillinta no bleeding issues. Had ISR for LAD stent Hussain Escalona MD [id number],C, o n ozempic has lost close to 50 pounds on [place] Hussain Escalona MD [id number],C, P atient with EF of 20%. ICD [...] EF 68% on 01/07/22 Hussain Escalona MD [id number],C, M itral Valve: T he mitral valve is normal in appearance and function. Mild mitral valve regurgitation N oted on echo from 01/07 Hussain Escalona MD [id number],S, P atient with EF of 20%. ICD [...] Jardiance and Entresto.Check labs. Hussain Escalona MD [id number],S, Echo, [facility] N ormal left ventricular size. Mild concentric [...] pulmonary hypertension. RPM monitor Hussain Escalona MD [id number],C,I mprovement of SOB, continue CHF med rx Hussain Escalona MD [id number],C, P atient with EF of 20%. ICD in place. Concern that worsening CHF/CMP d/t arrythmia or frequent PVCs will quantify with 24 hour monitor. She will continue medication therapy as noted above. February 05, 2022 W ill not be able to afford Kerendia, switched Lasix to Bumex bring her back in 1 week. Continue with Jardiance and Entresto. Hussain Escalona MD [id number],S,M itral Valve: T he mitral valve is normal in appearance and function. Mild mitral valve regurgitation N oted on echo from 01/07 Hussain Escalona MD [id number],C, D APT PLAVIX WAS HELD FOR EVALUATING IF HER FATIGUE WIOULD IMPROVE AND DID NOT CHANGE SO WILL RESUME December 05, 2021 b ack on asa plavix February 05, 2022 C urrently on ASA/Brillinta for recent stent placement Hussain Escalona MD [id number],C, T he following medications were removed from [...] (01/18/2021) HDL: 41 (01/18/2021) Hussain Escalona MD [id number],W,P atient with EF of 20%. ICD in place. Concern that worsening CHF/CMP d/t arrythmia or frequent PVCs will quantify with 24 hour monitor. She will continue medication therapy as noted above. Maggie Connor [facility] [id number],W,P atient presents with bilateral pitting edema R>L, in setting of volume overload. Discussed with Dr. Obando and low likelihood for DVT as on aspirin and brilinta. Most likely r/t volume overload. We will do venous doppler however, for further evaluation. Maggie Connor [facility] [id number],W,P teresa has acute systolic HF EF of [...] tablet under tongue as needed Maggie Connor [facility] [id number],S,P teresa has known history of CAD with [...] DR. Obando. T-wave abnormality/changes most likely post AK. We will adjust medications today with increase in BB dose. She will f/u in 2 weeks or sooner if needed. Encouraged patient if worsening or persistent symptoms to go to ER Maggie Connor [employer] [id number],S,t ry dilt 30 q8 and then cd 120 if improved and tolerated Hussain Escalona MD [id number],S, D APT PLAVIX WAS HELD FOR EVALUATING IF HER FATIGUE WIOULD IMPROVE AND DID NOT CHANGE SO WILL RESUME December 05, 2021 b ack on asa plavix Hussain Escalona MD [id number],C, Her updated medication list for this problem includes: Vascepa 1 Gram Capsule (Icosapent ethyl) Atorvastatin 40 Mg Tablet (Atorvastatin) okay to hold lipitor for a month to see how you feel b ack on chol med December 05, 2021 Hussain Escalona MD [id number],C, N o LISHA with current CPAP treatment. Had home sleep study done on CPAP. Has sleep issues. The patient is using CPAP on a regular basis. The patient has been benefiting from therapy and should continue use. Hussain Escalona MD [id number],C, Negative arterial study. Sees podiatry. Will obtain a sensilase. Hussain Escalona MD [id number],S,on ozempic cox s lost 30 pounds Hussain Escalona MD [id number],C, P zakia to implant ILR. Reviewed pros and cons. She is agreeable in having it done. May be missing arrhythmia on tele monitor. May 05, 2019 Sinus PVCs on ILR. J deneen 2021 g etting palps will add dilt 30 q8 and seehow she does then increaset to dilt cd 120 qd Hussain Escalona MD [id number],C, N o LISHA with current CPAP treatment. Had home sleep study done on CPAP. Has sleep issues. The patient is using CPAP on a regular basis. The patient has been benefiting from therapy and should continue use. Hussain Escalona MD [id number],S, Hussain Escalona MD [id number],C, 0 12/15/2017 Successful revascularization using the 3.25 x 15 mm Myrna Xience drug-eluting stent 3.25 x 15 mm Myrna Xience. LAD Hussain Escalona MD [id number],S, Negative arterial study. Sees podiatry. Will obtain a sensilase. Hussain Escalona MD [id number],C, S uccessful AV node slow pathway ablation on 11/25/2019 R emains on January 17, 2021 D evice check recently demonstrated in December episodes of SVT, reviewed with her, regarding this she does not have enough episodes to warrant repeat of ablation procedure. August 22, 2021 r are intermittent palpitaions Hussain Escalona MD [id number],C,H ad covid 2 months ago. She was vaccinated, no booster yet. Hussain Escalona MD [id number],S,A 1c is 9. Check sensilase for PAD Hussain Escalona MD [id number],C, Negative arterial study. Hussain Escalona MD [id number],C, N o LISAH with current CPAP treatment. Had home sleep study done on CPAP. Has sleep issues. The patient is using CPAP on a regular basis. The patient has been benefiting from therapy and should continue use. Hussain Escalona MD [id number],C, v accinated Hussain Escalona MD [id number],S,S he needs to be seen by an [...] 1,000 Mg Tablet (Metformin) Hussain Escalona MD [id number],C,T SH was okay W il checke thryodi levels H er updated medication list for this problem includes: Levo-t 100 Mcg Tablet (Levothyroxine) ..... Take 1 once a day Hussain Escalona MD [id number],S,D iabeteic nerve conduction study was performed, Dr [...] 1,000 Mg Tablet (Metformin) Hussain Escalona MD [id number],C, D APT PLAVIX WAS HELD FOR EVALUATING IF HER FATIGUE WIOULD IMPROVE AND DID NOT CHANGE SO WILL RESUME Hussain Escalona MD [id number],C, v accinated Hussain Escalona MD [id number],C, 0 12/15/2017 Successful revascularization using the 3.25 x 15 mm Myrna Xience drug-eluting stent 3.25 x 15 mm Myrna Xience. LAD Hussain Escalona MD [id number],C, A ICD per SK O n Toprol XL Hussain Escalona MD [id number],C, N o LISHA while using CPAP based [...] W ill review bloodwork Hussain Escalona MD [id number],C, S uccessful AV node slow pathway ablation on 11/25/2019 R emains on BB January 17, 2021 D evice check recently demonstrated in December episodes of SVT, reviewed with her, regarding this she does not have enough episodes to warrant repeat of ablation procedure. Hussain Escalona MD [id number],C,W il checke thryodi levels H er updated medication list for this problem includes: Levo-t 100 Mcg Tablet (Levothyroxine) ..... Take 1 once a day Hussain Escalona MD [id number],S,o lan to hold lipitor for a month to see how you feel Hussain Escalona MD [id number],C,m anaged by pcp H er updated medication list for this problem includes: Levo-t 100 Mcg Oral Tablet (Levothyroxine sodium) ..... Take one daily Hussain Escalona MD [id number],C, T he patient continues to walk with a cane and is experiencing falls due to nerve damage following knee surgery\ November 15, 2020 c onsider coming off lipitor even though it is low dosage Hussain Escalona MD [id number],C, D APT PLAVIX WAS HELD FOR EVALUATING IF HER FATIGUE WIOULD IMPROVE AND DID NOT CHANGE SO WILL RESUME Hussain Escalona MD [id number],C, N o LISHA with current CPAP treatment. Hussain Escalona MD [id number],C, 0 12/15/2017 Successful revascularization using the 3.25 x 15 mm Myrna Xience drug-eluting stent 3.25 x 15 mm Myrna Xience. LAD Hussain Escalona MD [id number],C, A ICD per SK Hussain Escalona MD [id number],C, Negative arterial study. Hussain Escalona MD [id number],S,vaccinated Sa tyree Escalona MD Cardiology:Needs pre op [...] DR. Obando. T-wave abnormality/changes most likely post AK. We will adjust medications today with increase [...] DR. Obando. T-wave abnormality/changes most likely post AK. We will adjust medications today with increase [...] additional sodium. Hussain Escalona MD Cardiology: Echo, [facility] N ormal left ventricular size. Mild concentric [...] labs. Hussain Escalona MD Cardiology:01/07 Echo , [facility] N ormal left ventricular size. Mild concentric [...] medication therapy as noted above. Maggie Connor [facility] Cardiology:Patient p resents with bilateral pitting edema R>L, in setting of volume overload. Discussed with Dr. Obando and low likelihood for DVT as on aspirin and brilinta. Most likely r/t volume overload. We will do venous doppler however, for further evaluation. Maggie Bernsteinjaida [facility] Cardiology:Patient h as acute systolic HF [...] tablet under tongue as needed Maggie Nikolas [facility] Cardiology:Patient h as known history of [...] DR. Obando. T-wave abnormality/changes most likely post AK. We will adjust medications today with increase in BB dose. She will f/u in 2 weeks or sooner if needed. Encouraged patient if worsening or persistent symptoms to go to ER [facility] Cardiology:try dilt 30 q8 and then [...] 05, 2019 Sinus PVCs on ILR. J dneeen 2021 g etting palps will add dilt [...] function Orders: Shane de anda No Charge (CPT-00372) [facility] Cardiology: B P today: 130/93 [...] has been given to the patient. [email or web address] May be Appropriate I CD for SECONDARY [...] has been given to the patient. [email or web address] May be Appropriate I CD for SECONDARY [...] - [facility] (*) 9 9214 MOD Complex (CPT-43079) [facility]- schedule ICD : H [...] Hour (Metoprolol succinate) ..... One tab daily [facility] TeleHealth: H er updated medication list [...] Hour (Metoprolol succinate) ..... One tab daily [facility] TeleHealth: nonsustained VT & sustained SVT [...] DIFF/PLT) (6399) C OMPREHENSIVE METABOLIC PANEL, W/EGFR (54454) L IPID PANEL (7600) P ROTHROMBIN TIME WITH INR (8847) P artial Thromboplastin Time, Activated (763) T HYROID PANEL (5419) 9 9215 HIGH Complex (CPT-36759) C omplete Echo (CPT-08022) A BLATION w/ Anesthesia (*) C T Cardiac with contrast (Pre-Ablation) (CPT-82490) Her updated medication list for this problem [...] plan. O rders: C BC (INCLUDES DIFF/PLT) (5455) C OMPREHENSIVE METABOLIC PANEL, W/EGFR (83792) L IPID PANEL (1190) P ROTHROMBIN TIME WITH INR (8847) P artial Thromboplastin Time, Activated (763) T HYROID PANEL (3398) 9 9215 HIGH Complex (CPT-27999) C omplete Echo (CPT-87044) A BLATION w/ Anesthesia (*) C T Cardiac with contrast (Pre-Ablation) (CPT-96847) Her updated medication list for this problem [...] ago. Will repeat since she had an AK and has snoring. July 21, 2019 F [...] and should continue use. Hussain Escalona MD Cardiology:[facility] sympt oms will get cath done despite [...] MD Cardiology follow up :INTERVENTION: 12/15/17 at [facility] 1 . Lesion attempted is proximal LAD. 2 . Guiding catheter, 6-Arabic CLS 3.5. 3 . Guidewire, 0.014 [employer]. [...] ago. Will repeat since she had an AK and has snoring. Hussain Escalona MD Cardiology New Patie nt:Likely due to recent AK. Check sleep study and PFTs. Hussain Escalona [...] one every 12 hours Orders: Filiberto DUMONT (CPT-55753) Hussain Escalona MD Cardiology New Patie nt:Followed [...] W/EGFR CBC (INCLUDES DIFF/P LT) DLCO - 91930 FRC - 52326 FVC - 82328 Sleep Study Home THYROID PANEL WITH T [...] minute walk test Ambulatory Oximetry DLCO - 20158 FRC - 15835 FVC - 41519 Mobile Cardiac Tele Sleep Study Home Complete [...] MD compl eted FVC / MVV - 23759 Petra tejada MD completed BLOOD COUNT HEMOGLOBIN Petra martinez MD completed FRC - 12701 Petra busch MD completed SpO2 w/o 6min walk/titration Petra Tobar MD completed DLCO - 03445 Petra busch MD completed EKG Petra busch [...] walk/titration Hussain Escalona MD completed FRC - 80601 Hussain Escalona MD comp leted DLCO - 17421 Hussain Escalona MD com pleted EKG Hussain Escalona MD compl eted
--- OUTSIDE RECORDS SUMMARY | 2024-07-12 18:36 | XMS_ITS | Clinical Summary ---
Author Organization [facility] [id number] Address [address] [place] [address] Care Team Providers Care Physician/Internist Name Role Phone Evelina Sifuentes MD Primary Care Provider [phone] Active Problems Patient Care Coordination No te Formatting of this note migh t be different from the original. Dr. Petra Tobar Audiovisual Technician - [facility] Heart and Vascular Dr. Eneida Collier - DPM - [facility] Dr. 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
--- OUTSIDE RECORDS SUMMARY | 2024-07-12 18:36 | XMS_ITS | Clinical Summary ---
Author Organization [facility] Facility Address [address] [place] [address] Care Team Providers Care Instrumentation Engineer Name Role Phone Rehan Mann PA-C Primary Care Provider [phone] Social History Tobacco Use Types Packs/Day Years [...] 64 01/06/2024 2:49 PM CDT Temperature 36.1 C (97 F) 01/06/2024 2:49 PM CDT Respiratory Rate 18 [...] 01/11/2025 12:30 PM CDT Office Visit [facility], [facility] [address] [place] [address] Sergey Everett DO [address] [place] [address] Health Maintenance Due Date Last [...] 12/05/2023 Insurance MEDICARE [place]ICAID [place] Care Teams Instrumentation Engineer Relationship Specialty Start Date End Date Rehan Mann PA-C [address] [place] [address] PCP - General Family Medicine 08/07/23
--- OUTSIDE RECORDS SUMMARY | 2024-07-12 18:36 | XMS_ITS ---
Author Organization [facility] [place] Address [address] [place] [address] Phone Care Team Providers Care Administrative Staff Supervisor Name Role Phone EUFEMIA GRIMES, DENNISE Vita Unavailable [phone] CAMPOS WHEELER MD Primary Care Provider [phone] Problems Includes: Active, inactive, and resolved Problems All Visits Onset Date Resolved Date Provider Condition S tatus Coronary Artery Disease Unknown JANAE yLnn PELON INSPECTOR RAW QUARTZ-FPA, COMPUTER NUMERICAL CONTROL OPERATOR-BC Active Last Documented On 3 10:16AM ; [facility] Diabetes Mellitus Unknown JANAE Shane PELON APR N-FPA, COMPUTER NUMERICAL CONTROL OPERATOR-BC Active Last Documented On 3 10:18AM ; [facility] Hypothyroidism Unknown JANAE Lynn PELON INSPECTOR RAW QUARTZ-F PA, COMPUTER NUMERICAL CONTROL OPERATOR-BC Active Last Documented On 3 10:18AM ; [facility] [place] Plan of Treatment Referrals To Diagnosis Pain Management [facility] - [address] [place] [address] - Spinal stenosis, lumbar region with neurogenic claudication Note: Consent for bilateral L4-5 transforaminal epidural.Hold Plavix X7 days prior to procedure Last Documented On 3 3:50PM ; [facility] Pain Management [facility] - [address] [place] [address] - Spinal stenosis, lumbar region with neurogenic claudication Note: consent for right L3-4 , L5-S1 transforaminal epiduralschedule in 6 weeks when done with IV antibiotics Last Documented On 3 10:08AM ; [facility] [place] Neurosurgeon RAHUL MERLOS MD Spinal steno sis, lumbar region with neurogenic claudication Last Documented On 3 3:21PM ; [facility] [place] Education and Decision Aids were provided during visit for: Pill Count: seven TYLENOL #3 Last Documented On 4 1:36PM ; [facility] Pill Count: three TYLENOL #3 Last Documented On 3 9:55AM ; [facility] [place] Pill Count: three TYLENOL #3 -PT STATES SHE HAS #6 AT HOME Last Documented On 3 10:26AM ; [facility] Pill Count: 27 TYLENOL #3 Last Documented On 3 9:19AM ; [facility] [place] Pill Count: 27 TYLENOL #3 Last Documented On 3 8:56AM ; [facility] [place] Pill Count: 13 TYLENOL #3, S TOPPED TAKING ON 07/05/22, PT WAS GIVEN RX FOR HYDROCOODNE FOR AMPUTATION OF RIGHT MIDDLE DIGIT TOE FOR BONE INFECTION Last Documented On 3 11:04AM ; [facility] [place] Pill Count: one Acetaminophe n Codeine: Appropriate Last Documented On 3 1:26PM ; [facility] [place] Pill Count: TYLENOL #3 Last Documented On 2 3:14PM ; [facility] [place] Pill Count: Patient did not bring pain medication to appointment for pill count, per policy. Advised in order to continue to safely prescribe opioids, medication must be brought to each appointment. PT STATES SHE HAS #16 PILLS AT HOME Last Documented On 2 3:14PM ; [facility] Pill Count: 25 TYLENOL #3 Last Documented On 2 2:12PM ; [facility] [place] Pill Count: 0 TYLENOL #3 Last Documented On 2 4:22PM ; [facility] [place] Pill Count: TYLENOL #3 Last Documented On 2 9:55AM ; [facility] [place] Pill Count: Patient did not bring pain medication to appointment for pill count, per policy. Advised in order to continue to safely prescribe opioids, medication must be brought to each appointment. PT STATES SHE ONLY HAD #2 LEFT Last Documented On 2 9:55AM ; [facility] Pill Count: four TYLENOL #3 Last Documented On 2 1:39PM ; [facility] Pill Count: Patient did not bring pain medication to appointment for pill count, per policy. Advised in order to continue to safely prescribe opioids, medication must be brought to each appointment Last Documented On 2 1:39PM ; [facility] Assessments Includes: Assessments for all patient encounters Findings Encounter Date Bulging lumbar disc PAIN MANAGEMENT FOLLOW UP wi th DENNISE L [facility] 10/07/2023 Last Documented On 4 9:10AM ; [facility] Chronic pain syndrome PAIN MANAGEMENT FO LLOW UP with DENNISE L EUFEMIA ANP-BC 10/07/2023 Last Documented On 4 9:10AM ; [facility] Diabetic polyneuropathy PAIN MANAGEMENT FOLLOW UP with DENNISE L EUFEMIA ANP-BC 10/07/2023 Last Documented On 4 9:10AM ; [facility] rodent exterminator use of opiate analgesic PAIN M ANAGEMENT FOLLOW UP with DENNISE L EUFEMIA ANP- 10/07/2023 Last Documented On 4 9:10AM ; [facility] Lumbar spondylosis with radiculopathy PA IN MANAGEMENT FOLLOW UP with DENNISE L EUFEMIA ANP-BC 10/07/2023 Last Documented On 4 9:10AM ; [facility] Lumbar stenosis with neuroge lenin claudication PAIN MANAGEMENT FOLLOW UP with DENNISE L EUFEMIA ANP-BC 10/07/2023 Last Documented On 4 9:10AM ; [facility] Myalgia PAIN MANAGEMENT FOLLOW UP with T GREGORY L EUFEMIA ANP-BC 10/07/2023 Last Documented On 4 9:10AM ; [facility] Bulging lumbar disc PAIN MANAGEMENT FOLLOW UP wi th DENNISE L EUFEMIA ANP- 03/27/2023 Last Documented On 3 10:20AM ; [facility] [place] Chronic pain syndrome PAIN MANAGEMENT FO LLOW UP with DENNISE L EUFEMIA ANP-BC 03/27/2023 Last Documented On 3 10:20AM ; [facility] Diabetic polyneuropathy PAIN MANAGEMENT FOLLOW UP with DENNISE L EUFEMIA ANP-BC 03/27/2023 Last Documented On 3 10:20AM ; [facility] rodent exterminator use of opiate analgesic PAIN M ANAGEMENT FOLLOW UP with DENNISE L EUFEMIA ANP-BC 03/27/2023 Last Documented On 3 10:20AM ; [facility] Lumbar spondylosis with radiculopathy PA IN MANAGEMENT FOLLOW UP with DENNISE L EUFEMIA ANP-BC 03/27/2023 Last Documented On 3 10:20AM ; [facility] Lumbar stenosis with neuroge lenin claudication PAIN MANAGEMENT FOLLOW UP with DENNISE L EUFEMIA ANP-BC 03/27/2023 Last Documented On 3 10:20AM ; [facility] Myalgia PAIN MANAGEMENT FOLLOW UP with T GREGORY L EUFEMIA ANP-BC 03/27/2023 Last Documented On 3 10:20AM ; [facility] Bulging lumbar disc PAIN MANAGEMENT FOLLOW UP wi th DENNISE L EUFEMIA ANP-BC 12/30/2022 Last Documented On 3 12:49PM ; [facility] Cervical radiculopathy PAIN MANAGEMENT F OLLOW UP with DENNISE L EUFEMIA ANP-BC 12/30/2022 Last Documented On 3 12:49PM ; [facility] Cervical spondylosis with radiculopathy PAIN MANAGEMENT FOLLOW UP with DENNISE L EUFEMIA ANP-BC 12/30/2022 Last Documented On 3 12:49PM ; [facility] Chronic pain syndrome PAIN MANAGEMENT FO LLOW UP with DENNISE L EUFEMIA ANP-BC 12/30/2022 Last Documented On 3 12:49PM ; [facility] Diabetic polyneuropathy PAIN MANAGEMENT FOLLOW UP with DENNISE L EUFEMIA ANP-BC 12/30/2022 Last Documented On 3 12:49PM ; [facility] jail use of opiate analgesic PAIN M ANAGEMENT FOLLOW UP with DENNISE L EUFEMIA ANP-BC 12/30/2022 Last Documented On 3 12:49PM ; [facility] Lumbar spondylosis with radiculopathy PA IN MANAGEMENT FOLLOW UP with DENNISE L EUFEMIA ANP-BC 12/30/2022 Last Documented On 3 12:49PM ; [facility] Lumbar stenosis with neuroge lenin claudication PAIN MANAGEMENT FOLLOW UP with DENNISE L EUFEMIA ANP-BC 12/30/2022 Last Documented On 3 12:49PM ; [facility] Myalgia PAIN MANAGEMENT FOLLOW UP with T GREGORY L EUFEMIA ANP-BC 12/30/2022 Last Documented On 3 12:49PM ; [facility] Bulging lumbar disc PAIN MANAGEMENT FOLLOW UP wi th DENNISE L EUFEMIA ANP-BC 10/31/2022 Last Documented On 3 9:56AM ; [facility] Cervical radiculopathy PAIN MANAGEMENT F OLLOW UP with DENNISE L EUFEMIA ANP-BC 10/31/2022 Last Documented On 3 9:56AM ; [facility] Cervical spondylosis with radiculopathy PAIN MANAGEMENT FOLLOW UP with DENNISE L EUFEMIA ANP-BC 10/31/2022 Last Documented On 3 9:56AM ; [facility] Chronic pain syndrome PAIN MANAGEMENT FO LLOW UP with DENNISE L EUFEMIA ANP-BC 10/31/2022 Last Documented On 3 9:56AM ; [facility] Diabetic polyneuropathy PAIN MANAGEMENT FOLLOW UP with DENNISE L EUFEMIA ANP-BC 10/31/2022 Last Documented On 3 9:56AM ; [facility] rodent exterminator use of opiate analgesic PAIN M ANAGEMENT FOLLOW UP with DENNISE L EUFEMIA ANP-BC 10/31/2022 Last Documented On 3 9:56AM ; [facility] Lumbar spondylosis with radiculopathy PA IN MANAGEMENT FOLLOW UP with DENNISE L EUFEMIA ANP-BC 10/31/2022 Last Documented On 3 9:56AM ; [facility] Lumbar stenosis with neuroge lenin claudication PAIN MANAGEMENT FOLLOW UP with DENNISE L EUFEMIA ANP-BC 10/31/2022 Last Documented On 3 9:56AM ; [facility] Myalgia PAIN MANAGEMENT FOLLOW UP with T GREGORY L EUFEMIA ANP-BC 10/31/2022 Last Documented On 3 9:56AM ; [facility] Bulging lumbar disc PAIN MANAGEMENT FOLLOW UP wi th DENNISE L EUFEMIA ANP-BC 09/03/2022 Last Documented On 3 5:37PM ; [facility] Cervical radiculopathy PAIN MANAGEMENT F OLLOW UP with DENNISE L EUFEMIA ANP-BC 09/03/2022 Last Documented On 3 5:37PM ; [facility] Cervical spondylosis with radiculopathy PAIN MANAGEMENT FOLLOW UP with DENNISE L EUFEMIA ANP-BC 09/03/2022 Last Documented On 3 5:37PM ; [facility] Chronic pain syndrome PAIN MANAGEMENT FO LLOW UP with DENNISE L EUFEMIA ANP-BC 09/03/2022 Last Documented On 3 5:37PM ; [facility] Diabetic polyneuropathy PAIN MANAGEMENT FOLLOW UP with DENNISE L EUFEMIA ANP-BC 09/03/2022 Last Documented On 3 5:37PM ; [facility] jail use of opiate analgesic PAIN M ANAGEMENT FOLLOW UP with DENNISE L EUFEMIA ANP-BC 09/03/2022 Last Documented On 3 5:37PM ; [facility] Lumbar spondylosis with radiculopathy PA IN MANAGEMENT FOLLOW UP with DENNISE L EUFEMIA ANP-BC 09/03/2022 Last Documented On 3 5:37PM ; [facility] Lumbar stenosis with neuroge lenin claudication PAIN MANAGEMENT FOLLOW UP with DENNISE L EUFEMIA ANP-BC 09/03/2022 Last Documented On 3 5:37PM ; [facility] Myalgia PAIN MANAGEMENT FOLLOW UP with T GREGORY L EUFEMIA ANP-BC 09/03/2022 Last Documented On 3 5:37PM ; [facility] Bulging lumbar disc PAIN MANAGEMENT FOLLOW UP wi th DENNISE L EUFEMIA ANP-BC 07/26/2022 Last Documented On 3 11:48AM ; [facility] Cervical radiculopathy PAIN MANAGEMENT F OLLOW UP with DENNISE L EUFEMIA ANP-BC 07/26/2022 Last Documented On 3 11:48AM ; [facility] Cervical spondylosis with radiculopathy PAIN MANAGEMENT FOLLOW UP with DENNISE L EUFEMIA ANP-BC 07/26/2022 Last Documented On 3 11:48AM ; [facility] Chronic pain syndrome PAIN MANAGEMENT FO LLOW UP with DENNISE L EUFEMIA ANP-BC 07/26/2022 Last Documented On 3 11:48AM ; [facility] Diabetic polyneuropathy PAIN MANAGEMENT FOLLOW UP with DENNISE L EUFEMIA ANP-BC 07/26/2022 Last Documented On 3 11:48AM ; [facility] jail use of opiate analgesic PAIN M ANAGEMENT FOLLOW UP with DENNISE L EUFEMIA [facility] 07/26/2022 Last Documented On 3 11:48AM ; [facility] Lumbar spondylosis with radiculopathy PA IN MANAGEMENT FOLLOW UP with DENNISE L EUFEMIA ANP-BC 07/26/2022 Last Documented On 3 11:48AM ; [facility] Lumbar stenosis with neuroge lenin claudication PAIN MANAGEMENT FOLLOW UP with DENNISE L EUFEMIA ANP-BC 07/26/2022 Last Documented On 3 11:48AM ; [facility] Myalgia PAIN MANAGEMENT FOLLOW UP with T GREGORY Vita EUFEMIA [employer] [facility]-BC 07/26/2022 Last Documented On 3 11:48AM ; [facility] Bulging lumbar disc PAIN MANAGEMENT FOLL OW UP with JANAE HENNING [facility]- 05/23/2022 Last Documented On 3 1:28PM ; [facility] Cervicalgia PAIN MANAGEMENT FOLLOW UP with Ofelia BIRD INSPECTOR RAW QUARTZ-FPBenjamin, [facility]-BC 05/23/2022 Last Documented On 3 1:28PM ; [facility] Chronic pain syndrome PAIN MANAGEMENT FO LLOW UP with JANAE Lynn PELON INSPECTOR RAW QUARTZ-FPA, COMPUTER NUMERICAL CONTROL OPERATOR-BC 05/23/2022 Last Documented On 3 1:28PM ; [facility] Diabetic polyneuropathy PAIN MANAGEMENT FOLLOW UP with JANAE Lynn PELON INSPECTOR RAW QUARTZ-FPA, COMPUTER NUMERICAL CONTROL OPERATOR-BC 05/23/2022 Last Documented On 3 1:28PM ; [facility] rodent exterminator use of opiate analgesic PAIN M ANAGEMENT FOLLOW UP with JANAE Lynn PELON INSPECTOR RAW QUARTZ-FPA, COMPUTER NUMERICAL CONTROL OPERATOR-BC 05/23/2022 Last Documented On 3 1:28PM ; [facility] Lumbar spondylosis with radiculopathy PA IN MANAGEMENT FOLLOW UP with JANAE Lynn PELON INSPECTOR RAW QUARTZ-FPA, COMPUTER NUMERICAL CONTROL OPERATOR-BC 05/23/2022 Last Documented On 3 1:28PM ; [facility] Lumbar stenosis with neuroge lenin claudication PAIN MANAGEMENT FOLLOW UP with JANAE Lynn PELON INSPECTOR RAW QUARTZ-FPA, COMPUTER NUMERICAL CONTROL OPERATOR-BC 05/23/2022 Last Documented On 3 1:28PM ; [facility] Myalgia PAIN MANAGEMENT FOLLOW UP with Ofelia Lynn PELON INSPECTOR RAW QUARTZ-FPA, COMPUTER NUMERICAL CONTROL OPERATOR-BC 05/23/2022 Last Documented On 3 1:28PM ; [facility] Bulging lumbar disc PAIN MANAGEMENT FOLLOW UP wi th DENNISE L EUFEMIA ANP-BC 03/14/2022 Last Documented On 2 3:37PM ; [facility] Chronic pain syndrome PAIN MANAGEMENT FO LLOW UP with DENNISE L EUFEMIA ANP-BC 03/14/2022 Last Documented On 2 3:37PM ; [facility] Diabetic polyneuropathy PAIN MANAGEMENT FOLLOW UP with DENNISE L EUFEMIA ANP-BC 03/14/2022 Last Documented On 2 3:37PM ; [facility] jail use of opiate analgesic PAIN M ANAGEMENT FOLLOW UP with DENNISE L EUFEMIA ANP-BC 03/14/2022 Last Documented On 2 3:37PM ; [facility] Lumbar spondylosis with radiculopathy PA IN MANAGEMENT FOLLOW UP with DENNISE L EUFEMIA ANP-BC 03/14/2022 Last Documented On 2 3:37PM ; [facility] Lumbar stenosis with neuroge lenin claudication PAIN MANAGEMENT FOLLOW UP with DENNISE L EUFEMIA ANP-BC 03/14/2022 Last Documented On 2 3:37PM ; [facility] Myalgia PAIN MANAGEMENT FOLLOW UP with T GREGORY L EUFEMIA ANP-BC 03/14/2022 Last Documented On 2 3:37PM ; [facility] Bulging lumbar disc PAIN MANAGEMENT FOLLOW UP wi th DENNISE L EUFEMIA ANP-BC 12/24/2021 Last Documented On 2 3:03PM ; [facility] Chronic pain syndrome PAIN MANAGEMENT FO LLOW UP with DENNISE L EUFEMIA ANP-BC 12/24/2021 Last Documented On 2 3:03PM ; [facility] Diabetic polyneuropathy PAIN MANAGEMENT FOLLOW UP with DENNISE L EUFEMIA ANP-BC 12/24/2021 Last Documented On 2 3:03PM ; [facility] jail use of opiate analgesic PAIN M ANAGEMENT FOLLOW UP with DENNISE L EUFEMIA ANP-BC 12/24/2021 Last Documented On 2 3:03PM ; [facility] Lumbar spondylosis with radiculopathy PA IN MANAGEMENT FOLLOW UP with DENNISE L EUFEMIA ANP-BC 12/24/2021 Last Documented On 2 3:03PM ; [facility] Lumbar stenosis with neuroge lenin claudication PAIN MANAGEMENT FOLLOW UP with DENNISE L EUFEMIA ANP-BC 12/24/2021 Last Documented On 2 3:03PM ; [facility] Myalgia PAIN MANAGEMENT FOLLOW UP with T GREGORY L EUFEMIA ANP-BC 12/24/2021 Last Documented On 2 3:03PM ; [facility] Chronic pain syndrome PAIN MANAGEMENT FO LLOW UP with DENNISE L EUFEMIA ANP-BC 11/05/2021 Last Documented On 2 5:36PM ; [facility] Diabetic polyneuropathy PAIN MANAGEMENT FOLLOW UP with DENNISE L EUFEMIA ANP-BC 11/05/2021 Last Documented On 2 5:36PM ; [facility] DORSALGIA PAIN MANAGEMENT FOLLOW UP with T GREGORY L EUFEMIA ANPBC 11/05/2021 Last Documented On 2 5:36PM ; [facility] jail use of opiate analgesic PAIN M ANAGEMENT FOLLOW UP with DENNISE L EUFEMIA [facility] 11/05/2021 Last Documented On 2 5:36PM ; [facility] Lumbar spondylosis with radiculopathy PA IN MANAGEMENT FOLLOW UP with DENNISE L [facility] 11/05/2021 Last Documented On 2 5:36PM ; [facility] Myalgia PAIN MANAGEMENT FOLLOW UP with T GREGORY L EUFEMIA ANPBC 11/05/2021 Last Documented On 2 5:36PM ; [facility] Chronic pain syndrome PAIN MANAGEMENT FO LLOW UP with DENNISE L [facility]EMIA [facility] 09/20/2021 Last Documented On 2 11:46AM ; [facility] Diabetic polyneuropathy PAIN MANAGEMENT FOLLOW UP with DENNISE L EUFEMIA [facility] 09/20/2021 Last Documented On 2 11:46AM ; [facility] DORSALGIA PAIN MANAGEMENT FOLLOW UP with T GREGORY L EUFEMIA [facility] 09/20/2021 Last Documented On 2 11:46AM ; [facility] jail use of opiate analgesic PAIN M ANAGEMENT FOLLOW UP with DENNISE L EUFEMIA [facility] 09/20/2021 Last Documented On 2 11:46AM ; [facility] Lumbar spondylosis without m yelopathy or radiculopathy PAIN MANAGEMENT FOLLOW UP with DENNISE L EUFEMIA ANP- 09/20/2021 Last Documented On 2 11:46AM ; [facility] Myalgia PAIN MANAGEMENT FOLLOW UP with T GREGORY L EUFEMIA ANP-BC 09/20/2021 Last Documented On 2 11:46AM ; [facility] Chronic pain syndrome PAIN MANAGEMENT NE W CONSULT with DENNISE L EUFEMIA [facility] 08/21/2021 Last Documented On 2 4:35PM ; [facility] Diabetic polyneuropathy PAIN MANAGEMENT NEW CONSULT with DENNISE ANTHONY [facility] 08/21/2021 Last Documented On 2 4:35PM ; [facility] DORSALGIA PAIN MANAGEMENT NEW CONSULT with DENNISE ANTHONY [facility] 08/21/2021 Last Documented On 2 4:35PM ; [facility] rodent exterminator use of opiate analgesic PAIN M ANAGEMENT NEW CONSULT with DENNISE ANTHONY [facility] 08/21/2021 Last Documented On 2 4:35PM ; [facility] Myalgia PAIN MANAGEMENT NEW CONSULT with DENNISECHER ANTHONY [facility] 08/21/2021 Last Documented On 2 4:35PM ; [facility] Instructions Includes: Instructions for all patient encounters Education and Decision Aids were provided during visit for: Pill Count: seven TYLENOL #3 Last Documented On 4 1:36PM ; [facility] Pill Count: three TYLENOL #3 Last Documented On 3 9:55AM ; [facility] Pill Count: three TYLENOL #3 -PT STATES SHE HAS #6 AT HOME Last Documented On 3 10:26AM ; [facility] Pill Count: 27 TYLENOL #3 Last Documented On 3 9:19AM ; [facility] Pill Count: 27 TYLENOL #3 Last Documented On 3 8:56AM ; [facility] Pill Count: 13 TYLENOL #3, S TOPPED TAKING ON 07/05/22, PT WAS GIVEN RX FOR HYDROCOODNE FOR AMPUTATION OF RIGHT MIDDLE DIGIT TOE FOR BONE INFECTION Last Documented On 3 11:04AM ; [facility] Pill Count: one Acetaminophe n Codeine: Appropriate Last Documented On 3 1:26PM ; [facility] Pill Count: TYLENOL #3 Last Documented On 2 3:14PM ; [facility] Pill Count: Patient did not bring pain medication to appointment for pill count, per policy. Advised in order to continue to safely prescribe opioids, medication must be brought to each appointment. PT STATES SHE HAS #16 PILLS AT HOME Last Documented On 2 3:14PM ; [facility] Pill Count: 25 TYLENOL #3 Last Documented On 2 2:12PM ; [facility] Pill Count: 0 TYLENOL #3 Last Documented On 2 4:22PM ; [facility] Pill Count: TYLENOL #3 Last Documented On 2 9:55AM ; [facility] Pill Count: Patient did not bring pain medication to appointment for pill count, per policy. Advised in order to continue to safely prescribe opioids, medication must be brought to each appointment. PT STATES SHE ONLY HAD #2 LEFT Last Documented On 2 9:55AM ; [facility] Pill Count: four TYLENOL #3 Last Documented On 2 1:39PM ; [facility] Pill Count: Patient did not bring pain medication to appointment for pill count, per policy. Advised in order to continue to safely prescribe opioids, medication must be brought to each appointment Last Documented On 2 1:39PM ; [facility] Medical Equipment - Implanted Devices Includes: Current and historical Devices No Medical Equipment Recorded Medications Includes: Current and historical Medications Current Medications (continue as prescribed) Linzess 145 MCG Oral Capsule 11/03/2023 Provider: ISIDORO SCHMIDT Diagnosis: Constipation, un specified TAKE 1 CAPSULE BY MOUTH DAILY Last Documented On 4 1:40PM By JANAE CHAUDHRY ; [facility] tiZANidine HCl 2 MG Oral Tablet 10/24/2023 Provider: ISIDORO PEPPER Diagnosis: TAKE 1 TABLET BY MOUTH 2 TO 3 TIMES PER DAY NEEDED Last Documented On 4 10:26AM By JANAE CHAUDHRY ; [facility] Acetaminophen-Codeine 300-30 MG Oral Tablet 10/08/2023 Provider: DENNISE GRIMES Diagnosis: Spinal stenosis, lumbar region with neurogenic claudication 1 po bid prn/ max 2 per day Last Documented On 4 9:26AM By DENNISE GRIMES ; [facility] Ozempic (0.25 or 0.5 MG/DOSE ) 2 MG/3ML Subcutaneous Solution Pen-injector 10/02/2023 Provider: Diagnosis: Last Documented On 10/07/2023 1:34PM By Laura RIVERA ; [facility] Ubrelvy 100 MG Oral Tablet 09/18/2023 Provider: Diagnosis: Last Documented On 10/07/2023 1:35PM By Laura RIVERA ; [facility] Qulipta 60 MG Oral Tablet 09/11/2023 Provider: Diagnosis: Last Documented On 10/07/2023 1:34PM By Laura RIVERA ; [facility] tiZANidine HCl 2 MG Oral Tablet 08/13/2023 Provider: JANAE CALIBenjamin [facility] Diagnosis: TAKE 1 TABLET BY MOUTH 2 TO 3 TIMES PER DAY NEEDED Last Documented On 4 12:03PM By JANAE BIRD [facility] ; [facility] Gentamicin Sulfate 0.1% External Ointment 07/11/2023 Provider: JW MARIN DPM Diagnosis: Last Documented On 10/07/2023 1:33PM By Laura RIVERA ; [facility] Gabapentin 600 MG Oral Tablet 06/23/2023 Provider: DENNISE HERNANDEZ 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 TAKE 1 TABLET BY MOUTH THREE TIMES DAILY Last Documented On 4 8:40AM By [facility] ; [facility] DULoxetine HCl 60 MG Oral Capsule Delayed Release Particles 06/23/2023 Provider: DENNISE Barnes Diagnosis: Chronic pain syn drome TAKE 1 CAPSULE BY MOUTH DAILY Last Documented On 4 8:40AM By [facility] ; [facility] Santyl 250 UNIT/GM External Ointment 06/06/2023 Prov ider: JW MARIN DPM Diagnosis: Last Documented On 10/07/2023 1:34PM By Laura RIVERA ; [facility] Bumetanide 1 MG Oral Tablet 09/13/2022 Provider: Diagnosis: Last Documented On 3 10:28AM By Laura RIVERA ; [facility] Kerendia 20 MG Oral Tablet 03/03/2022 Provider: Diagnosis: Last Documented On 03/14/2022 3:11PM By Laura RIVERA ; [facility] Brilinta 90 MG Oral Tablet 02/19/2022 Provider: Diagnosis: Last Documented On 03/14/2022 3:12PM By Laura RIVERA ; [facility] Carvedilol 6.25 MG Oral Tablet 01/26/2022 Provider: Diagnosis: Last Documented On 03/14/2022 3:06PM By Laura RIVERA ; [facility] Entresto 24-26 MG Oral Tablet 01/25/2022 Provider: Diagnosis: Last Documented On 03/14/2022 3:13PM By Laura RIVERA ; [facility] Jardiance 25 MG Oral Tablet 09/03/2021 Provider: Diagnosis: Last Documented On 09/20/2021 9:45AM By Laura RIVERA ; [facility] Aspirin 81 MG Oral Capsule 08/21/2021 Provider: Diagnosis: Last Documented On 08/21/2021 1:34PM By Laura RIVERA ; [facility] Nitroglycerin 0.4 MG Sublingual Tablet Sublingual 09/2021 Provider: Diagnosis: Last Documented On 08/21/2021 1:36PM By Laura RIVERA ; [facility] metFORMIN HCl 1000 MG Oral Tablet 08/20/2021 Provide r: CAMPOS WHEELER MD Diagnosis: Last Documented On 08/21/2021 1:30PM By Laura RIVERA ; [facility] Levothyroxine Sodium 100 MCG Oral Tablet 08/20/2021 Provider: CAMPOS WHEELER MD Diagnosis: Last Documented On 08/21/2021 1:30PM By Laura RIVERA ; [facility] Topiramate 25 MG Oral Tablet 2021 Provider: Diagnosis: Last Documented On 08/21/2021 1:31PM By Laura RIVERA ; [facility] Atorvastatin Calcium 40 MG Oral Tablet 08/09/2021 Pr ovider: CAMPOS WHEELER MD Diagnosis: Last Documented On 08/21/2021 1:31PM By Laura RIVERA ; [facility] [place] Past Medications on file Linzess 145 MCG Oral Capsule 10/03/2023 - 10/07/2023 Provider: DENNISE GRIMES Diagnosis: Last Documented On 10/07/2023 1:35PM By Laura RIVERA ; [facility] Linzess 145 MCG Oral Capsule 08/06/2023 - 11/03/2023 Provider: DENNISE GRIMES Diagnosis: Constipation, unspecified TAKE 1 CAPSULE BY MOUTH DAILY Last Documented On 4 1:25PM By JANAE BIRD [facility] ; [facility] Acetaminophen-Codeine 300-30 MG Oral Tablet 07/21/2023 - 10/07/2023 Provider: DENNISE GRIMES Diagnosis: Spinal stenosis, lumbar region with neurogenic claudication 1 po bid prn/ max 2 per day Last Documented On 4 9:09AM By DENNISE GRIMES ; [facility] tiZANidine HCl 2 MG Oral Tablet 07/21/2023 - 08/13/2023 Provider: DENNISE GRIMES Diagnosis: 1 po 2-3 times per day prn Last Documented On 4 11:48AM By JANAE BIRD [facility] ; [facility] Acetaminophen-Codeine 300-30 MG Oral Tablet 06/12/2023 - 07/18/2023 Provider: DENNISE GRIMES Diagnosis: Spinal stenosis, lumbar region with neurogenic claudication 1 po bid prn/ max 2 per day Last Documented On 4 10:00AM By DENNISE HERNANDEZ ; [facility] Gabapentin 600 MG Oral Tablet 05/22/2023 - 06/23/2023 Provider: DENNISE GRIMES 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 TAKE 1 TABLET BY MOUTH THREE TIMES DAILY Last Documented On 4 8:32AM By DENNISE GRIMES ; [facility] Linzess 145 MCG Oral Capsule 05/15/2023 - 08/06/2023 Provider: DENNISE GRIMES Diagnosis: Constipation, unspecified TAKE 1 CAPSULE BY MOUTH DAILY Last Documented On 4 4:47PM By DENNISE GRIMES ; [facility] Gabapentin 600 MG Oral Tablet 04/21/2023 - 05/22/2023 Provider: DENNISE GRIMES 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 TAKE 1 TABLET BY MOUTH THREE TIMES DAILY Last Documented On 4 1:32PM By DENNISE GRIMES ; [facility] Linzess 145 MCG Oral Capsule 04/13/2023 - 05/15/2023 Provider: DENNISE GRIMES Diagnosis: Constipation, unspecified TAKE 1 CAPSULE BY MOUTH DAILY Last Documented On 3 2:32PM By DENNISE GRIMES ; [facility] Acetaminophen-Codeine 300-30 MG Oral Tablet 03/27/2023 - 06/12/2023 Provider: DENNISE GRIMES Diagnosis: Spinal stenosis, lumbar region with neurogenic claudication 1 po bid prn/ max 2 per day Last Documented On 4 4:06PM By DENNISE GRIMES ; [facility] DULoxetine HCl 60 MG Oral Capsule Delayed Release Particles 03/25/2023 - 06/23/2023 Provider: DENNISE GRIMES Diagnosis: Chronic pain syn drome TAKE 1 CAPSULE BY MOUTH DAILY Last Documented On 4 8:32AM By DENNISE GRIMES ; [facility] Gabapentin 600 MG Oral Tablet 03/25/2023 - 04/21/2023 Provider: DENNISE GRIMES 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 TAKE 1 TABLET BY MOUTH THREE TIMES DAILY Last Documented On 3 12:22PM By DENNISE GRIMES ; [facility] Linzess 145 MCG Oral Capsule 03/10/2023 - 04/13/2023 Provider: DENNISE GRIMES Diagnosis: Constipation, unspecified TAKE 1 CAPSULE BY MOUTH DAILY Last Documented On 3 6:43AM By DENNISE GRIMES ; [facility] Gabapentin 600 MG Oral Tablet 02/24/2023 - 03/25/2023 Provider: JANAE BIRD [employer] [facility], [facility] 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 TAKE 1 TABLET BY MOUTH THREE TIMES DAILY Last Documented On 3 4:13PM By DENNISE GRIMES ; [facility] Gabapentin 600 MG Oral Tablet 01/27/2023 - 02/24/2023 Provider: DENNISE GRIMES 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 TAKE 1 TABLET BY MOUTH THREE TIMES DAILY Last Documented On 3 11:53AM By JANAE NEAL-BC ; [facility] Acetaminophen-Codeine 300-30 MG Oral Tablet 01/13/2023 - 03/27/2023 Provider: DENNISE GRIMES Diagnosis: Spondylosis w/o myelopathy or radiculopathy, lumbar region 1 po bid prn/ max 2 per day Last Documented On 3 10:12AM By DENNISE GRIMES ; [facility] tiZANidine HCl 2 MG Oral Tablet 01/13/2023 - 07/21/2023 Provider: DENNISE GRIMES Diagnosis: 1 po 2-3 times per day prn Last Documented On 4 10:03AM By DENNISE GRIMES ; [facility] DULoxetine HCl 60 MG Oral Capsule Delayed Release Particles 12/30/2022 - 03/25/2023 Provider: DENNISE GRIMES Diagnosis: Chronic pain syn drome 1 capsule daily Last Documented On 3 4:13PM By DENNISE GRIMES ; [facility] DULoxetine HCl 30 MG Oral Capsule Delayed Release Particles 12/27/2022 - 03/27/2023 Provider: DENNISE GRIMES Diagnosis: Chronic pain syn drome TAKE 1 CAPSULE BY MOUTH AT BEDTIME Last Documented On 3 10:04AM By DENNISE GRIMES ; [facility] Gabapentin 600 MG Oral Tablet 12/27/2022 - 01/27/2023 Provider: DENNISE GRIMES Diagnosis: h diabetes lary litus with diabetic polyneuropathy TAKE 1 TABLET BY MOUTH THREE TIMES DAILY Last Documented On 3 10:34AM By DENNISE GRIMES ; [facility] Acetaminophen-Codeine 300-30 MG Oral Tablet 12/02/2022 - 01/13/2023 Provider: DENNISE GRIMES Diagnosis: Spondylosis w/o myelopathy or radiculopathy, lumbar region 1 po bid prn/ max 2 per day Last Documented On 3 3:44PM By DENNISE GRIMES ; [facility] DULoxetine HCl 30 MG Oral Capsule Delayed Release Particles 11/25/2022 - 12/27/2022 Provider: DENNISE GRIMES Diagnosis: Chronic pain syn drome TAKE 1 CAPSULE BY MOUTH AT BEDTIME Last Documented On 3 10:26PM By DENNISE GRIMES ; [facility] Linzess 145 MCG Oral Capsule 11/20/2022 - 03/10/2023 Provider: DENNIES GRIMES Diagnosis: Constipation, unspecified TAKE 1 CAPSULE BY MOUTH DAILY Last Documented On 3 3:57PM By DENNISE GRIMES ; [facility] DULoxetine HCl 30 MG Oral Capsule Delayed Release Particles 10/31/2022 - 11/25/2022 Provider: DENNISE GRIMES Diagnosis: Chronic pain syn drome One tablet at bed time Last Documented On 3 1:45PM By DENNISE GRIMES ; [facility] Linzess 145 MCG Oral Capsule 10/21/2022 - 11/20/2022 Provider: DENNISE GRIMES Diagnosis: Constipation, unspecified TAKE 1 CAPSULE BY MOUTH DAILY Last Documented On 3 8:44AM By DENNISE GRIMES ; [facility] Acetaminophen-Codeine #3 300-30 MG Oral Tablet 10/08/2022 - 12/30/2022 Provider: DENNISE GRIMES Diagnosis: Other spondylosi s with radiculopathy, lumbar region 1 po bid prn, max 2 per day Last Documented On 3 10:26AM By Laura RIVERA ; [facility] Gabapentin 600 MG Oral Tablet 09/25/2022 - 12/27/2022 Provider: DENNISE GRIMES 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 TAKE 1 TABLET BY MOUTH THREE TIMES DAILY Last Documented On 3 10:31PM By DENNISE GRIMES ; [facility] cefTRIAXone Sodium 2 GM Intr avenous Solution Reconstituted 09/03/2022 - 12/30/2022 Provider: Diagnosis: Last Documented On 3 10:28AM By Laura RIVERA ; [facility] Gabapentin 600 MG Oral Tablet 08/23/2022 - 09/25/2022 Provider: DENNISE GRIMES 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 TAKE 1 TABLET BY MOUTH THREE TIMES DAILY Last Documented On 3 12:49PM By DENNISE GRIMES ; [facility] Linzess 145 MCG Oral Capsule 08/21/2022 - 10/21/2022 Provider: DENNISE GRIMES Diagnosis: Constipation, unspecified TAKE 1 CAPSULE BY MOUTH DAILY Last Documented On 3 1:23PM By DENNISE GRIMES ; [facility] Acetaminophen-Codeine #3 300-30 MG Oral Tablet 08/13/2022 - 10/07/2022 Provider: DENNISE GRIMES Diagnosis: Other spondylosi s with radiculopathy, lumbar region 1 po bid prn, max 2 per day Last Documented On 3 5:42PM By DENNISE GRIMES ; [facility] Gabapentin 600 MG Oral Tablet 07/25/2022 - 08/23/2022 Provider: DENNISE GRIMES 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 TAKE 1 TABLET BY MOUTH THREE TIMES DAILY Last Documented On 3 3:59PM By DENNISE GRIMES ; [facility] HYDROcodone-Acetaminophen 5-325 MG Oral Tablet 0 07/05/2022 - 10/31/2022 Provider: Diagnosis: Last Documented On 3 9:31AM By DENNISE GRIMES ; [facility] Linzess 145 MCG Oral Capsule 06/11/2022 - 08/21/2022 Provider: ISIDORO PEPPER Diagnosis: Constipation, unspecified TAKE 1 CAPSULE BY MOUTH DAILY Last Documented On 3 9:26AM By DENNISE GRIMES ; [facility] Acetaminophen-Codeine #3 300-30 MG Oral Tablet 05/23/2022 - 08/13/2022 Provider: ISIDORO PEPPER Diagnosis: Other spondylosi s with radiculopathy, lumbar region 1 po bid prn Last Documented On 3 4:03PM By DENNISE GRIMES ; [facility] Gabapentin 600 MG Oral Tablet 05/23/2022 - 07/25/2022 Provider: ISIDORO PEPPER 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 TAKE 1 TABLET BY MOUTH THREE TIMES DAILY Last Documented On 3 8:41AM By DENNISE GRIMES ; [facility] Bumetanide 1 MG Oral Tablet 05/23/2022 - 06/22/2022 Pr ovider: Diagnosis: Last Documented On 3 10:20AM By JANAE CHAUDHRY ; [facility] Gabapentin 600 MG Oral Tablet 04/30/2022 - 05/23/2022 Provider: DENNISE GRIMES 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 TAKE 1 TABLET BY MOUTH THREE TIMES DAILY Last Documented On 3 10:42AM By JANAE CHAUDHRY ; [facility] Acetaminophen-Codeine #3 300 -30 MG Oral Tablet 03/26/2022 - 05/23/2022 Provider: DENNISE GRIMES Diagnosis: 1 po bid prn Last Documented On 3 10:42AM By JANAE CHAUDHRY ; [facility] Linzess 145 MCG Oral Capsule 03/19/2022 - 06/11/2022 Provider: DENNISE GRIMES Diagnosis: Constipation, unspecified TAKE 1 CAPSULE BY MOUTH DAILY Last Documented On 3 2:03PM By JANAE BIRD [facility] ; [facility] Dexcom G6 Sensor Miscellaneous 03/09/2022 - 12/30/2022 Provider: Diagnosis: Last Documented On 3 10:29AM By Laura RIVERA ; [facility] Bumetanide 1 MG Oral Tablet 03/07/2022 - 05/23/2022 Pr ovider: Diagnosis: Last Documented On 3 10:20AM By JANAE BIRD [facility] ; [facility] Acetaminophen-Codeine #3 300 -30 MG Oral Tablet 02/22/2022 - 03/25/2022 Provider: DENNISE GRIMES Diagnosis: One tablet twice a day Last Documented On 2 10:39AM By DENNISE GRIMES ; [facility] Linzess 145 MCG Oral Capsule 02/19/2022 - 03/19/2022 Provider: DENNISE GRIMES Diagnosis: Constipation, unspecified TAKE 1 CAPSULE BY MOUTH DAILY Last Documented On 2 12:10PM By DENNISE GRIMES ; [facility] Pantoprazole Sodium 40 MG Or al Tablet Delayed Release 02/15/2022 - 12/30/2022 Provider: CAMPOS WHEELER MD Diagnosis: Last Documented On 3 10:29AM By Laura RIVERA ; [facility] Acetaminophen-Codeine #3 300 -30 MG Oral Tablet 01/22/2022 - 02/21/2022 Provider: DENNISE GRIMES Diagnosis: One tablet twice a day Last Documented On 2 8:24AM By DENNISE GRIMES ; [facility] Gabapentin 600 MG Oral Tablet 01/10/2022 - 04/30/2022 Provider: DENNISE GRIMES 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 TAKE 1 TABLET BY MOUTH THREE TIMES DAILY Last Documented On 2 12:44PM By DENNISE GRIMES ; [facility] Acetaminophen-Codeine #3 300-30 MG Oral Tablet 12/17/2021 - 05/23/2022 Provider: DENNISE GRIMES Diagnosis: Spondylosis w/o myelopathy or radiculopathy, lumbar region 1 po qhs prn Last Documented On 3 10:17AM By JANAE BIRD [facility] ; [facility] Linzess 145 MCG Oral Capsule 11/12/2021 - 02/19/2022 Provider: DENNISE GRIMES Diagnosis: Constipation, unspecified TAKE 1 CAPSULE BY MOUTH DAILY Last Documented On 2 5:09PM By DENNISE GRIMES ; [facility] Acetaminophen-Codeine #3 300-30 MG Oral Tablet 11/05/2021 - 12/17/2021 Provider: DENNISE GRIMES Diagnosis: Spondylosis w/o myelopathy or radiculopathy, lumbar region 1 po qhs prn Last Documented On 2 11:59AM By DENNISE GRIMES ; [facility] Gabapentin 600 MG Oral Tablet 10/17/2021 - 01/10/2022 Provider: DENNISE GRIMES 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 TAKE 1 TABLET BY MOUTH THREE TIMES DAILY Last Documented On 2 3:24PM By DENNISE GRIMES ; [facility] Linzess 145 MCG Oral Capsule 10/17/2021 - 11/12/2021 Provider: DENNISE GRIMES Diagnosis: Constipation, unspecified TAKE 1 CAPSULE BY MOUTH DAILY Last Documented On 2 8:59AM By DENNISE GRIMES ; [facility] Acetaminophen-Codeine #3 300 -30 MG Oral Tablet 10/12/2021 - 11/05/2021 Provider: DENNISE GRIMES Diagnosis: 1 po qhs prn Last Documented On 2 5:34PM By DENNISE GRIMES ; [facility] Gabapentin 600 MG Oral Tablet 09/20/2021 - 12/24/2021 Provider: DENNISE GRIMES 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 One tablet three times a day Last Documented On 12/24/2021 2:06PM By Laura RIVERA ; [facility] Linzess 145 MCG Oral Capsule 09/20/2021 - 10/17/2021 Provider: DENNISE GRIMES Diagnosis: Constipation, unspecified 1 capsule daily Last Documented On 2 1:42PM By DENNISE GRIMES ; [facility] Acetaminophen-Codeine #3 300 -30 MG Oral Tablet 09/20/2021 - 10/11/2021 Provider: DENNISE GRIMES Diagnosis: 1 po qhs prn Last Documented On 2 8:22AM By DENNISE GRIMES ; [facility] Gebbdaoojo-FQKA-Lobdzmom 50- 325-40 MG Oral Tablet 09/13/2021 - 03/14/2022 Provider: CAMPOS WHEELER MD Diagnosis: 1 TABLET PO BID PRN Last Documented On 03/14/2022 3:07PM By Laura RIVERA ; [facility] Acetaminophen-Codeine #3 300 -30 MG Oral Tablet 09/04/2021 - 09/20/2021 Provider: DENNISE GRIMES Diagnosis: 1 po qhs prn Last Documented On 2 10:07AM By DENNISE GRIMES ; [facility] Ozempic (0.25 or 0.5 MG/DOSE ) 2 MG/1.5ML Subcutaneous Solution Pen-injector 09/03/2021 - 03/14/2022 Provider: Diagnosis: Last Documented On 03/14/2022 3:07PM By Laura RIVERA ; [facility] tiZANidine HCl 2 MG Oral Tablet 08/20/2021 - Provider: Diagnosis: Last Documented On 3 3:45PM By DENNISE GRIMES ; [facility] Gabapentin 300 MG Oral Capsule 08/20/2021 - 12/24/2021 Provider: CAMPOS WHEELER MD Diagnosis: Last Documented On 12/24/2021 2:07PM By Laura RIVERA ; [facility] Vascepa 1 GM Oral Capsule 08/20/2021 - 10/07/2023 Prov ider: Diagnosis: Last Documented On 10/07/2023 1:35PM By Laura RIVERA ; [facility] Nortriptyline HCl 50 MG Oral Capsule 08/01/2021 - 02/17 Provider: CAMPOS WHEELER MD Diagnosis: Last Documented On 03/14/2022 3:08PM By Laura RIVERA ; [facility] Clopidogrel Bisulfate 75 MG Oral Tablet 07/26/2021 - 1 Provider: Diagnosis: Last Documented On 03/14/2022 3:09PM By Laura RIVERA ; [facility] hydroCHLOROthiazide 25 MG Oral Tablet 07/26/2021 - Provider: Diagnosis: Last Documented On 03/14/2022 3:10PM By Laura RIVERA ; [facility] Acetaminophen-Codeine #3 300 -30 MG Oral Tablet 07/26/2021 - 01/22/2022 Provider: CAMPOS WHEELER MD Diagnosis: Last Documented On 1:47PM By DENNISE ANTHONY [facility] ; [facility] Metoprolol Succinate ER 100 MG Oral Tablet Extended Release 24 Hour 06/21/2021 - 03/14/2022 Provider: Diagnosis: Last Documented On 03/14/2022 3:09PM By Laura RIVERA ; [facility] Admelog 100 UNIT/ML Subcutan eous Solution 05/23/2021 - 03/14/2022 Provider: CAMPOS WHEELER MD Diagnosis: Last Documented On 03/14/2022 3:09PM By Laura RIVERA ; [facility] Lisinopril 10 MG Oral Tablet 03/27/2021 - 03/14/2022 Kirti stringerder: Diagnosis: Last Documented On 03/14/2022 3:09PM By Laura RIVERA ; [facility] Medications Administered Includes: Administered Medications in patient's chart No Administered Medications Recorded Vital Signs Includes: Vital Signs from 07/12/2023 through 07/12/2024 Vital Name 10/07/2023 01:28P Blood Pressure Sitting R 90/60 Pulse Rate-Sitting (bpm) 90 Temp-Temporal 97.3 Height (in) 65 Weight (lb) 126 Body Mass Index 21 Body Surface Area 1.6 Pain Level 7 Oxygen Saturation (%) 98 Last Documented: On 10/07/2023 1:32PM ; [facility] Results Includes: Results from 07/12/2023 through 07/12/2024 DRUG MONITORING, PANEL 6 WITH CONFIRMATI ON, URINE [employer] [facility] Ordered by DENNISE GRIMES on Collected: 10/07/2023 Reported: 10/09/19 24 23:08 Last Documented On 4 11:38AM ; [facility] Reviewed by DENNISE GRIMES on 10/28/2023; All test results are final unless otherwise noted. Amphetamines NEGATIVE ng/mL (<500) None Last Documented On 4 11:39PM ; [facility] Barbiturates NEGATIVE ng/mL (<300) None Last Documented On 4 11:39PM ; [facility] Benzodiazepines NEGATIVE ng/mL (<100) None Last Documented On 4 11:39PM ; [facility] Marijuana Metabolite NEGATIVE ng/mL (<20) None Last Documented On 4 11:39PM ; [facility] Cocaine Metabolite NEGATIVE ng/mL (<150) None Last Documented On 4 11:39PM ; [facility] Methadone Metabolite NEGATIVE ng/mL (<100) None Last Documented On 4 11:39PM ; [facility] Opiates POSITIVE ng/mL (<100) A (Abnormal) Last Documented On 4 11:39PM ; [facility] Codeine 2280 ng/mL (<50) H (High) Last Documented On 4 11:39PM ; [facility] medMATCH Codeine CONSISTENT None Last Documented On 4 11:39PM ; [facility] Morphine 156 ng/mL (<50) H (High) Last Documented On 4 11:39PM ; [facility] medMATCH Morphine CONSISTENT None Last Documented On 4 11:39PM ; [facility] Hydrocodone NEGATIVE ng/mL (<50) None Last Documented On 4 11:39PM ; [facility] Hydromorphone NEGATIVE ng/mL (<50) None Last Documented On 4 11:39PM ; [facility] Oxycodone POSITIVE ng/mL (<100) A (Abnormal) Last Documented On 4 11:39PM ; [facility] Oxycodone NEGATIVE ng/mL (<50) None Last Documented On 4 11:39PM ; [facility] Oxymorphone 100 ng/mL (<50) H (High) Last Documented On 4 11:39PM ; [facility] medMATCH Oxymorphone INCONSISTENT A (Abnormal) Last Documented On 4 11:39PM ; [facility] Phencyclidine NEGATIVE ng/mL (<25) None Last Documented On 4 11:39PM ; [facility] Alcohol Metabolites NEGATIVE ng/mL (<500) None Last Documented On 4 11:39PM ; [facility] 6 Acetylmorphine NEGATIVE ng/mL (<10) None Last Documented On 4 11:39PM ; [facility] pH 5.4 (4.5-9.0) None Last Documented On 4 11:39PM ; [facility] Creatinine 87.0 mg/dL (> or = 20.0) None Last Documented On 4 11:39PM ; [facility] Oxidant NEGATIVE mcg/mL (<200) None Last Documented On 4 11:39PM ; [facility] Norhydrocodone 52 ng/mL (<50) H (High) Last Documented On 4 11:39PM ; [facility] Noroxycodone 185 ng/mL (<50) H (High) Last Documented On 4 11:39PM ; [facility] medMATCH Norhydrocodone INCONSISTENT A (Abnormal) Last Documented On 11:39PM ; [facility] medMATCH Noroxycodone INCONSISTENT A (Abnormal) Last Documented On 11:39PM ; [facility] Opiates Comments See Note None Last Documented On 10/09/2023 11:39PM ; [facility] Note: See Opiates Notes, LDT Notes Oxycodone Comments See Note None Last Documented On 10/09/2023 11:39PM ; [facility] Note: See Oxycodone Notes, LDT Notes DRUG MONITORING TEMPLATE [employer] Ordered by DENNISE GRIMES on Collected: 10/07/2023 Reported: 10/09/19 24 23:08 Last Documented On 11:38AM ; [facility] Reviewed by DENNISE GRIMES on 10/28/2023; All test results are final unless otherwise noted. Notes and Comments See Note None Last Documented On 10/09/2023 11:39PM ; [facility] Note: This drug testing is for medical [...] analytical performance characteristics have been determined by [employer]. It has not been cleared or approved by the FDA. This assay has been validated pursuant to the CLIA regulations and is used for clinical purposes. medMATCH(R) enables providers to identify if drug useis consistent or inconsistent with a correspondingprescribed medication(s) list. Healthcare Providers needing Interpretation assistance, please contact us at [phone] ( ) M-F, 8am to 10pm EST PRESCRIBED DRUGS, medMATCH(R) [employer] Ordered by DENNISE GRIMES on Collected: 10/07/2023 Reported: 10/09/19 24 23:08 Last Documented On 4 11:38AM ; [facility] Reviewed by DENNISE GRIMES on 10/28/2023; All test results are final unless otherwise noted. Prescribed Drug 6 Codeine None Last Documented On 4 11:39PM ; [facility] medMATCH Summary See Note None Last Documented On 10/09/2023 11:39PM ; [facility] Note: Prescribed Prescribed Not Prescribed Consistent Inconsistent Inconsistent Codeine Norhydrocodone Noroxycodone Oxymorphone Reported Physicians [employer] Ordered by DENNISE GRIMES on Collected: 10/07/2023 Reported: 10/10/19 24 00:10 Last Documented On 4 11:38AM ; [facility] Reviewed by DENNISE GRIMES on 10/28/2023; All test results are final unless otherwise noted. Reported Physicians See Note None Last Documented On 10/09/2023 11:39PM ; [facility] Note: Reported Physicians:Ordering: Dennise Anthony History of Present Illness History of Present Illness not supported for this document type No History of Present Illness Recorded Social History Description Last Updated Tobacco non-user 07/26/2022 Last Documented On 3 11:48AM ; [facility] No consumption of alcohol 03/14/2022 Last Documented On 2 3:37PM ; [facility] Not using drugs 03/14/2022 Last Documented On 2 3:37PM ; [facility] Difficulty walking 08/21/2021 Last Documented On 2 4:35PM ; [facility] Smoking Status Unknown Procedures and Surgical History Surgical History Last Updated Pacemaker 03/14/2022 Last Documented On 2 3:37PM ; [facility] Medical History Includes: Medical History in patient's chart Description Last Updated Has a fear of falling. 05/23/2022 Last Documented On 3 1:28PM ; [facility] Has had a fall in the last 12 months. Last Documented On 3 1:28PM ; [facility] History of acute myocardial infarction A ugust 202103/14/2022 Last Documented On 2 3:37PM ; [facility] Currently wearing eyeglasses 03/14/2022 Last Documented On 2 3:37PM ; [facility] Deep muscle stimulation 03/14/2022 Last Documented On 2 3:37PM ; [facility] Injection/Nerve blocks 03/14/2022 Last Documented On 2 3:37PM ; [facility] No Pain Pump 03/14/2022 Last Documented On 2 3:37PM ; [facility] No Spinal cord stimulator 03/14/2022 Last Documented On 2 3:37PM ; [facility] Physical therapy 03/14/2022 Last Documented On 2 3:37PM ; [facility] Please list all illnesses/co nditions you have been diagnosed with: Two pinched nerves in my lower back neuropathy total right knee replacement heart disease 03/14/2022 Last Documented On 2 3:37PM ; [facility] Please list all surgeries: R ight ankle 1988 right knee scope 4x 2018 total right knee replacement carpal tunnel both hands 2004 and just on the right 2013 partial hysterectomy 2009 stent in my heart 2018 heart ablation 2019 [id number] 03/14/2022 Last Documented On 2 3:37PM ; [facility] Severe Pain 03/14/2022 Last Documented On 2 3:37PM ; [facility] Uses a cane for support 03/14/2022 Last Documented On 2 3:37PM ; [facility] Which brand of pacemaker/defibrillator d o you have? Biotronik 03/14/2022 Last Documented On 2 3:37PM ; [facility] Family History Includes: Family History in patient's chart Description Last Updated Family history of Arthritis 03/14/2022 Last Documented On 2 3:37PM ; [facility] Family history of ischemic heart disease 03/14/2022 Last Documented On 2 3:37PM ; [facility] Family history of stroke/paralysis 03/14 Last Documented On 2 3:37PM ; [facility] Paternal history of Arthritis 03/14/2022 Last Documented On 2 3:37PM ; [facility] Paternal history of family history of is chemic heart disease 03/14/2022 Last Documented On 2 3:37PM ; [facility] Review of Systems Review of Systems not supported for this document type No Review of Systems Recorded Mental Status No Mental Status Recorded Functional Status No Functional Status Recorded Physical Exam Physical Exam not supported for this document type No Physical Exam Recorded Allergies Includes: Active, inactive, and resolved Allergies No Known Allergies Encounters Includes: Encounters from 07/12/2023 through 07/12/2024 Encounter Provider Location Date Check-In Time Check-Out Time Diagnosis [facility] 1:03PM 1:58PM Chronic Pain Syndrome,Bulging Intervertebral Disc Lumbar,Polyneurop athy Diabetic,Spinal Stenosis Lumbar with Neurogenic Claudication,Spon dylosis with Radiculopathy Lumbar Region,Detention Use of Opiate Analgesic,Myalgia , Other Site (M79.18) RX ISSUE/REFILL DENNISE GRIMES 024 03/27/2023 1:47PM 03/27/2023 11:59PM Insurance Includes: Active Insurance Policies Plan Name Member ID Group # Subscriber Relationship Effect arcadio Dates 1 - MEDICARE PART A CLAIMS/NGS [id number] ANAM [employer] DOLLAR Self 2 - MEDICAID [place] MEDICARE SECOND [id number] ANAM [employer] DOLLAR Self Clinical Notes Includes: Signed Clinical Notes starting from 06/07/2022 * Progress note Date Encounter Last Documented by 10/07/2023 PAIN MANAGEMENT FOLLOW UP Last d ocumented on 10/08/2023; 9:10 AM, DENNISE ANTHONY ANP-; [facility] Active Problems & [...] is scheduled to have surgery 06/10/23 at [facility]. She continues tylenol #3 as needed twice [...] muscle tightness and pressure. With her recent [place] and hypotension we will avoid further medication. [...] comorbidities. Patient suffered a myocardial infarction and [place] and continues to be weak and hypotensive. [...] days. She has an upcoming appt with weight training instructor. Numbness and tingling in feet causes falls. After right knee replacement there was an increase in lateral thigh/knee numbness and more falls. Her neurologist placed her on permanent restrictions due to gait instability and she is now on disability. She had worked at [employer] for over 20 years. Gabapentin 300mg TID has been her dose for 5 plus years. She was originally treated by Dr Araujo until his correction and given oxycodone. Dr Cabrera assumed care until recently. He no longer prescribes pain medication. Her pcp placed her on Tylenol #3 at bedtime, which provides minimal relief. She really doesn't question additional pain medication and is open to a treatment plan that would include reduction of medication use. We discussed increasing gabapentin to 600mg tid and will do so if her animal feeder is ok with this, she is seeing [...] in my heart 2018 heart ablation 2019 [id number]. 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 Verify all diagnoses, medications, dosages, and [...] documented on 07/21/2023; 10:00 AM, DENNISE HERNANDEZ-; [facility] Active Problems & [...] ~ pt phone # for Return call: [phone] ~Last Drug Screen:09/03/22 ~Date/Initials: 07/18/23 CB. Past Medical/Surgical History Reported: Injection/Nerve blocks, Deep muscle stimulation, Physical therapy, Which brand of pacemaker/defibrillator do you have? [employer], Please list all illnesses/conditions you have been diagnosed with: Two pinched nerves in my lower back neuropathy total right knee replacement heart disease, and Please list all surgeries: Right ankle 1988 right knee scope 4x 2018 total right knee replacement carpal tunnel both hands 2003 and just on the right 2012 partial hysterectomy 2009 stent in my heart 2018 heart ablation 2019 [id number]. Medical: Currently wearing eyeglasses, orthopedic history Left [...]
--- OUTSIDE RECORDS SUMMARY | 2024-07-12 18:36 | XMS_ITS | Clinical Summary ---
Author Organization [facility] Address [address] [place] [address] Phone Care Team Providers Care Door Puller Name Role Phone EUFEMIA SYDNEY DENNISE Vita Unavailable [phone] CAMPOS WHEELER MD Primary Care Provider [phone] Reason for Visit and Chief Complaint RX ISSUE/REFILL Problems Includes: Problems addressed during this encounter and other active Problems All Visits Onset Date Resolved Date Provider Condition S tatus Coronary Artery Disease Unknown JANAE BIRD APRN-FPA, MANAGER TAX-BC Active Last Documented On 3 10:16AM ; [facility] Diabetes Mellitus Unknown JANAE BIRD APR N-FPA, MANAGER TAX-BC Active Last Documented On 3 10:18AM ; [facility] Hypothyroidism Unknown JANAE BIRD APRN-F PA, MANAGER TAX-BC Active Last Documented On 3 10:18AM ; [facility] Plan of Treatment No Plan of Treatment [...] On 4 1:40PM By JANAE TURNERBC ; [facility] tiZANidine HCl 2 MG Oral Tablet 10/24/2023 Provider: JANAE G PELON PROCESSING OPERATOR-FPA, MANAGER TAX-BC Diagnosis: TAKE 1 TABLET BY MOUTH 2 TO 3 TIMES PER DAY NEEDED Last Documented On 4 10:26AM By JANAE BIRD [facility] ; [facility] Acetaminophen-Codeine 300-30 MG Oral Tablet 10/08/2023 Provider: DENNISE GRIMES Diagnosis: Spinal stenosis, lumbar region with neurogenic claudication 1 po bid prn/ max 2 per day Last Documented On 4 9:26AM By DENNISE HERNANDEZ ; [facility] Ozempic (0.25 or 0.5 MG/DOSE ) 2 MG/3ML Subcutaneous Solution Pen-injector 10/02/2023 Provider: Diagnosis: Last Documented On 10/07/2023 1:34PM By Laura RIVERA ; [facility] Ubrelvy 100 MG Oral Tablet 09/18/2023 Provider: Diagnosis: Last Documented On 10/07/2023 1:35PM By Laura RIVERA ; [facility] Qulipta 60 MG Oral Tablet 09/11/2023 Provider: Diagnosis: Last Documented On 10/07/2023 1:34PM By Laura RIVERA ; [facility] tiZANidine HCl 2 MG Oral Tablet 08/13/2023 Provider: JANAE BIRD APRN-FPA, MANAGER TAX-BC Diagnosis: TAKE 1 TABLET BY MOUTH 2 TO 3 TIMES PER DAY NEEDED Last Documented On 4 12:03PM By JANAE BIRD [facility] ; [facility] Gentamicin Sulfate 0.1% External Ointment 07/11/2023 Provider: JW MARIN DPOfelia Diagnosis: Last Documented On 10/07/2023 1:33PM By Laura RIVERA ; [facility] Gabapentin 600 MG Oral Tablet 06/23/2023 Provider: DENNISE GRIMES 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 TAKE 1 TABLET BY MOUTH THREE TIMES DAILY Last Documented On 4 8:40AM By DENNISE GRIMES ; [facility] DULoxetine HCl 60 MG Oral Capsule Delayed Release Particles 06/23/2023 Provider: DENNISE Barnes Diagnosis: Chronic pain syn drome TAKE 1 CAPSULE BY MOUTH DAILY Last Documented On 4 8:40AM By DENNISE FALL BANNER MD [facility] ; [facility] Santyl 250 UNIT/GM External Ointment 06/06/2023 Prov ider: JW MARIN DPM Diagnosis: Last Documented On 10/07/2023 1:34PM By Laura RIVERA ; [facility] Bumetanide 1 MG Oral Tablet 09/13/2022 Provider: Diagnosis: Last Documented On 3 10:28AM By Laura RIVERA ; [facility] Kerendia 20 MG Oral Tablet 03/03/2022 Provider: Diagnosis: Last Documented On 03/14/2022 3:11PM By Laura RIVERA ; [facility] Brilinta 90 MG Oral Tablet 02/19/2022 Provider: Diagnosis: Last Documented On 03/14/2022 3:12PM By Laura RIVERA ; [facility] Carvedilol 6.25 MG Oral Tablet 01/26/2022 Provider: Diagnosis: Last Documented On 03/14/2022 3:06PM By Laura RIVERA ; [facility] Entresto 24-26 MG Oral Tablet 01/25/2022 Provider: Diagnosis: Last Documented On 03/14/2022 3:13PM By Laura RIVERA ; [facility] Jardiance 25 MG Oral Tablet 09/03/2021 Provider: Diagnosis: Last Documented On 09/20/2021 9:45AM By Laura RIVERA ; [facility] Aspirin 81 MG Oral Capsule 08/21/2021 Provider: Diagnosis: Last Documented On 08/21/2021 1:34PM By Laura RIVERA ; [facility] Nitroglycerin 0.4 MG Sublingual Tablet Sublingual 09/2021 Provider: Diagnosis: Last Documented On 08/21/2021 1:36PM By Laura RIVERA ; [facility] metFORMIN HCl 1000 MG Oral Tablet 08/20/2021 Provide r: CAMPOS WHEELER MD Diagnosis: Last Documented On 08/21/2021 1:30PM By Laura RIVERA ; [facility] Levothyroxine Sodium 100 MCG Oral Tablet 08/20/2021 Provider: CAMPOS WHEELER MD Diagnosis: Last Documented On 08/21/2021 1:30PM By Laura RIVERA ; [facility] Topiramate 25 MG Oral Tablet 2021 Provider: Diagnosis: Last Documented On 08/21/2021 1:31PM By Laura RIVERA ; [facility] Atorvastatin Calcium 40 MG Oral Tablet 08/09/2021 Pr ovider: CAMPOS WHEELER MD Diagnosis: Last Documented On 08/21/2021 1:31PM By Laura RIVERA ; [facility] Past Medications on file Bumetanide 1 MG Oral Tablet 05/23/2022 - 06/22/2022 Pr ovider: Diagnosis: Last Documented On 3 10:20AM By JANAE TURNER ; [facility] Medications Administered Includes: Administered Medications from this encounter No Administered Medications Recorded Results Includes: Results discussed during this encounter No Results Recorded For Specified Dates History of Present Illness Includes: History of Present Illness from this encounter HPI Pharmacy name:~location:[facility]. Social History Description Last Updated Tobacco non-user 07/26/2022 Last Documented On 4 1:09PM ; [facility] Difficulty walking 08/21/2021 Last Documented On 4 1:09PM ; [facility] Smoking Status Unknown Procedures and Surgical History Surgical History Last Updated Pacemaker 03/14/2022 Last Documented On 4 1:09PM ; [facility] Medical History Includes: Medical History addressed during this encounter Description Last Updated Has a fear of falling. 05/23/2022 Last Documented On 4 1:09PM ; [facility] Has had a fall in the last 12 months. Last Documented On 4 1:09PM ; [facility] History of acute myocardial infarction A ugust 202103/14/2022 Last Documented On 4 1:09PM ; [facility] Currently wearing eyeglasses 03/14/2022 Last Documented On 4 1:09PM ; [facility] Deep muscle stimulation 03/14/2022 Last Documented On 4 1:09PM ; [facility] Injection/Nerve blocks 03/14/2022 Last Documented On 4 1:09PM ; [facility] Physical therapy 03/14/2022 Last Documented On 4 1:09PM ; [facility] Please list all illnesses/co nditions you have been diagnosed with: Two pinched nerves in my lower back neuropathy total right knee replacement heart disease 03/14/2022 Last Documented On 4 1:09PM ; [facility] Please list all surgeries: R ight ankle 1988 right knee scope 4x 2018 total right knee replacement carpal tunnel both hands 2004 and just on the right 2012 partial hysterectomy 2009 stent in my heart 2018 heart ablation 2019 [id number] 03/14/2022 Last Documented On 4 1:09PM ; [facility] Severe Pain 03/14/2022 Last Documented On 4 1:09PM ; [facility] Uses a cane for support 03/14/2022 Last Documented On 4 1:09PM ; [facility] Which brand of pacemaker/defibrillator d o you have? Biotronik 03/14/2022 Last Documented On 4 1:09PM ; [facility] Family History Includes: Family History addressed during [...] Dates 1 - MEDICARE PART A CLAIMS/NGS [id number] ANAM K DOLLAR Self 2 - MEDICAID [place] MEDICARE SECOND [id number] ANAM [employer] DOLLAR Self Clinical Notes Includes: Clinical Notes from this encounter * Progress note Date Encounter Last Documented by 06/09/2023 RX ISSUE/REFILL Last documented on 06/10/2023; 8:28 AM, DENNISE FALL ANP-; [facility] Active Problems & Conditions - Coronary Artery Disease - Diabetes Mellitus - Hypothyroidism Chief Complaint Phone Call - Chief Concern: Reason for call:REFILL Patient is requesting a refill on TYLENOL #3 ~How is medication taken? BID ~How many are left?OUT OF MEDICATION Risk Assessment Score: LOW ~ILPMP:03/28/23 Last Office Visit: 03/27/23 ~ pt phone # for Return call: [phone] ~Last Drug Screen:09/03/22 ~Date/Initials: 06/09/23, KMS. History of Present Illness Pharmacy name:~location:[facility]. Past Medical/Surgical History Reported: Injection/Nerve blocks, Deep muscle stimulation, Physical therapy, Which brand of pacemaker/defibrillator do you have? BiotroniOMGPOP, Please list all illnesses/conditions you have been diagnosed with: Two pinched nerves in my lower back neuropathy total right knee replacement heart disease, and Please list all surgeries: Right ankle 1988 right knee scope 4x 2018 total right knee replacement carpal tunnel both hands 2003 and just on the right 2012 partial hysterectomy 2009 stent in my heart 2018 heart ablation 2019 [id number]. Medical: Currently wearing eyeglasses, orthopedic history Left [...]
--- OUTSIDE RECORDS SUMMARY | 2024-07-12 18:37 | XMS_ITS ---
Care Plan - [facility] Created on: July 12, 2024 ANMA JAQUEZ : 1970 Sex: Female Author Organization [facility] Address [address] [place] [address] Phone Care Team Providers Care Resident Care Director Name Role Phone DENNISE TRUJILLO Unavailable [phone] CAMPOS WHEELER MD Primary Care Provider [phone]
== END 2024-07-12 16:21 | disposition home or self-care (01) ==
PROVIDERS: PCP Physician Assistant Medical; Visit Provider Neurological Surgery
DX: M43.16 Spondylolisthesis, lumbar region (principal); Z98.1 Arthrodesis status
CPT/HCPCS: 72100

== ENCOUNTER 2024-07-20 10:20 | Outpatient (CLI) | payer MEDICARE, MEDICAID, SELFPAY | END 2024-07-20 10:21 | disposition home or self-care (01) | LOC: ANHIMG 10:21 | PROVIDERS: PCP Internal Medicine; Visit Provider Neurological Surgery | DX: M47.816 Spondylosis without myelopathy or radiculopathy, lumbar region (principal); Z98.1 Arthrodesis status | CPT/HCPCS: 72131 ==

== ENCOUNTER 2025-02-24 09:33 | Outpatient (CLI) | payer MEDICARE, MEDICAID, SELFPAY ==
--- NOTE | ~2025-02-24 | CT_ITS ---
EXAMINATION: CT cervical spine wo con COMPARISON: None HISTORY: cervicalgia TECHNIQUE: Axial images were obtained through the spine without IV contrast. Coronal, sagittal reconstruction images were obtained from the axial views. CT scan performed using dose optimization techniques including the following automated exposure control; adjustment of mA and/or kV; use of iterative reconstruction technique. Automatic exposure control was used to reduce radiation dose. Permanent radiation dose record is archived to PACS. FINDINGS: Minimal loss of vertebral height throughout with grade 1 anterolisthesis of C4 on C5 C5 on C6, no fracture is identified. Minimal loss of disc height at C3-4 C4-5 and C5-6 without gross canal or foraminal stenosis. There are bilateral thyroid nodules largest left lobe 2 x 2 cm, ultrasound is recommended. Impression: 1. Minimal degenerative changes. MRI suggested if symptoms persist. Incidental findings above Reviewed, dictated and finalized at location P. Impression: 1. Minimal degenerative changes. MRI suggested if symptoms persist. Incidental findings above
== END 2025-02-24 09:34 | disposition home or self-care (01) ==
PROVIDERS: PCP Physician Assistant Medical; Visit Provider Nurse Practitioner Family
DX: M54.2 Cervicalgia (principal)
CPT/HCPCS: 72125